=== PATIENT | female | born 1965 | race Two or more races ===

== ENCOUNTER → 2020-05-16 14:31 | Outpatient (BNVA) | payer MEDICAID, SELFPAY | PROVIDERS: Referring Provider Family Medicine; Visit Provider Internal Medicine Gastroenterology | DX: K59.03 Drug induced constipation (principal); K52.9 Noninfective gastroenteritis and colitis, unspecified; E66.9 Obesity, unspecified; E11.9 Type 2 diabetes mellitus without complications; E03.9 Hypothyroidism, unspecified; E78.00 Pure hypercholesterolemia, unspecified; J45.909 Unspecified asthma, uncomplicated; M17.0 Bilateral primary osteoarthritis of knee; Z87.891 Personal history of nicotine dependence; Z90.49 Acquired absence of other specified parts of digestive tract; Z88.8 Allergy status to other drugs, medicaments and biological substances; Z91.02 Food additives allergy status | CPT/HCPCS: 99212 ==

== ENCOUNTER 2020-06-23 16:01 | Emergency (ER) | payer MEDICAID, SELFPAY ==
[2020-06-23 16:31] VITALS: BP 135/64; PULSE 71; RESP 19; TEMP 36.4; O2SAT 98; BMI 45.1
--- NOTE | 2020-06-23 16:41 | XR_ITS ---
EXAMINATION: XR LUMBOSACRAL SPINE CLINICAL INFORMATION: Pain slip and fall COMPARISON: Lumbar x-rays December 2018 TECHNIQUE: Three views of the lumbosacral spine. FINDINGS: Multilevel degenerative disc changes from L3-L4 through L5-S1 overall mild and unchanged. There is no fracture. Facet joints appear normal. The partially visualized pelvis including sacroiliac joints are normal. XR/XR lumbar spine 2-3V IMPRESSION: Mild degenerative changes stable compared to December 2018
--- NOTE | 2020-06-23 16:41 | ED.BACK ---
HPI - Back Pain/Injury General Chief Complaint: Back Pain/Injury Stated Complaint: back pain Time Seen by Provider: 06/23/20 16:16 Source: patient Mode of arrival: ambulatory Limitations: no limitations History of Present Illness HPI Narrative: 54 y/o female presenting with low back pain after she slipped and fell backwards against her toilet 2 days ago. She did not hit her head, lose consciousness or sustain any other injuries. She is not on blood thinners. She states she has worsening pain with movement and is having a hard time sleeping due to the discomfort. She takes oxycodone chronically once per day and it did not help her pain today. She denies numbness, tingling, weakness, urinary incontinence. She states walking also makes the pain worse but she is steady on her feet. Related Data Home Medications Medication Instructions Recorded Confirmed bupropion HCl 300 mg 24 hr tablet, 300 mg PO QAM 05/16/20 05/16/20 extended release clonazepam 1 mg tablet 0.5 mg PO BID tab 05/16/20 05/16/20 furosemide 20 mg tablet 20 mg PO DAILY 05/16/20 05/16/20 levothyroxine 150 mcg tablet 150 mcg PO DAILY 05/16/20 05/16/20 metformin 500 mg tablet 500 mg PO DAILY 05/16/20 05/16/20 methylcellulose (with sugar) oral 1 tbsp PO BID 05/16/20 05/16/20 powder montelukast 10 mg tablet 10 mg PO QPM 05/16/20 05/16/20 Previous Rx's Medication Instructions Recorded cyclobenzaprine 10 mg PO TID PRN #12 tab 06/23/20 lidocaine [Lidoderm] 1 patch TOPICAL DAILY #15 ea 06/23/20 Allergies Allergy/AdvReac Type Severity Reaction Status Date / Time cortisone [CORTISONE] Allergy Intermediate ELEVATES Verified 06/23/20 17:09 BLOOD SUGAR ibuprofen [IBUPROFEN] Allergy Intermediate GI UPSET, Verified 06/23/20 17:09 stomach upset mayonnaise [MAYONNAISE] Allergy Mild RASH Verified 06/23/20 17:09 naproxen [NAPROXEN] AdvReac Intermediate STOMACH Verified 06/23/20 17:09 UPSET acetaminophen [Vicodin] AdvReac Unknown palpitation Verified 06/23/20 17:09 s hydrocodone [Vicodin] AdvReac Unknown palpitation Verified 06/23/20 17:09 s From VICODIN Allergy Intermediate PALPITATION Uncoded 04/11/20 16:41 S mayonaise Allergy Unknown Unknown Uncoded 06/23/20 17:09 mayonnaise Allergy Unknown itchiness Uncoded 01/18/20 00:00 and swelling Vicodin Allergy Unknown palpitation Uncoded 01/18/20 00:00 s,hypertens ion Cortisone AdvReac Unknown hyperglycem Uncoded 12/27/17 00:00 ia Review of Systems Review of Systems: Constitutional: No Fever, No Chills ENT/Mouth: No sore throat, No Rhinorrhea, No Swallowing Difficulty Cardiovascular: No Chest Pain, No SOB Respiratory: No Cough, No Sputum Gastrointestinal: No Nausea, No Vomiting, No Diarrhea, No abdominal Pain Musculoskeletal: + joint pain, + Myalgias Skin: No Skin Lesions, No rash Neuro: No Weakness, No Numbness, No Dizziness, + Headache Psych: No Anxiety/Panic, No Depression Heme/Lymph: No Bruising, No Lymphadenopathy PMFSH Past Medical History Attestation statement: The following information was validated with the patient. Medical History Asthma Bilateral carpal tunnel syndrome Chronic diarrhea Depression Drug induced constipation Fibromyalgia High cholesterol Hypothyroidism Osteoarthritis of knees, bilateral Type 2 diabetes mellitus Surgical History (Updated 05/16/20 @ 14:54 by Bruce Moralez MD) H/O arthroscopy of left knee (~2004) H/O: hysterectomy (~10/2012) History of cholecystectomy (~2011) History of removal of laparoscopic gastric banding device (~10/2012) Hx of laparoscopic adjustable gastric banding (~2009) S/p bilateral carpal tunnel release (~2003) Family History Family History (Updated 05/16/20 @ 14:33 by LENNOX Dickson) Mother No problems noted. Father Cancer Sister Breast cancer Social History Social History (Updated 05/16/20 @ 14:34 by LENNOX Dickson) Housing: Apartment Alcohol intake: never Smoking Status: Former smoker Advance Directives: No Advance Directives Information Provided: No service: No Current occupational status: disabled Physical Exam Vital Signs: Vital Signs: Last Vital Signs Temp 97.5 F 06/23/20 16:31 Pulse 71 06/23/20 16:31 Resp 19 06/23/20 16:31 BP 135/64 06/23/20 16:31 Pulse Ox 98 06/23/20 16:31 Body Mass Index 45.1 Appearance: Alert. Oriented X3. No acute distress. HEENT: normal inspection CVS: Normal heart rate and rhythm. Pulses normal. Respiratory: No respiratory distress. Lung CTAB Skin: Skin warm and dry. Normal skin color. Normal skin turgor. No rashes. Back: normal inspection, no ecchymosis. soft tissue tenderness of upper lumbar area R>L with muscle spasm on the right. No spinal tenderness. Extremities: Atraumatic, no lower extremity edema Neuro: Oriented X 3. No motor deficit. No sensory deficit. Course Course Course Narrative: 54 y/o female with traumatic LBP after a cornelius against her toilet seat 2 days ago. XR shows Mild degenerative changes stable compared to December 2018. She is non-focal on exam with mostly soft tissue tenderness. Will treat for contusion and spasm. She is stable for discharge. She was encouraged to f/u with her PCP this week. Discharge Plan Discharge Clinical Impression: Contusion Qualifiers: Encounter type: initial encounter Contusion area: lower back Qualified Code(s): S30.0XXA - Contusion of lower back and pelvis, initial encounter Patient Disposition: Home, Self-Care Instructions: Acute Low Back Pain (ED), Contusion in Adults (ED), Lower Back Exercises (ED) Additional Instructions: Use ice and/or heat to the area several times per day. Limit bending, lifting >10 lbs and twisting motions. Take prescribed medications as needed for pain/discomfort. Follow up with your doctor this week. If you develop worsening symptoms or develop numbness, weakness, loss of function or incontinence come back to the ER for further evaluation. Prescriptions: New cyclobenzaprine 10 mg tablet 10 mg PO TID PRN (Reason: muscle spasm) Qty: 12 RF: 0 lidocaine [Lidoderm] 5 % adhesive patch,medicated 1 patch topical DAILY Qty: 15 RF: 0 No Action furosemide [Lasix] 20 mg tablet 20 mg PO DAILY RF: 0 bupropion HCl [Wellbutrin XL] 300 mg tablet extended release 24 hr 300 mg PO QAM RF: 0 clonazepam [Klonopin] 1 mg tablet 0.5 mg PO BID RF: 0 montelukast [Singulair] 10 mg tablet 10 mg PO QPM RF: 0 Citrucel (sucrose) Powder 1 tbsp PO BID RF: 0 levothyroxine 150 mcg tablet 150 mcg PO DAILY RF: 0 metformin 500 mg tablet 500 mg PO DAILY RF: 0
[2020-06-23] MEDS: oxyCODONE HCl Immed Release 5 MG TABLET PO (17:15)
[2020-06-23] MEDS: Ketorolac Tromethamine 30 MG/ML VIAL IM (17:17)
== END 2020-06-23 17:56 | disposition home or self-care (01) ==
PROVIDERS: Emergency Provider Internal Medicine; PCP Family Medicine
DX: S30.0XXA Contusion of lower back and pelvis, initial encounter (principal); W01.10XA Fall on same level from slipping, tripping and stumbling with subsequent striking against unspecified object, initial encounter; Y93.9 Activity, unspecified; Y92.002 Bathroom of unspecified non-institutional (private) residence as the place of occurrence of the external cause; Y99.9 Unspecified external cause status; Z87.891 Personal history of nicotine dependence; Z79.899 Other long term (current) drug therapy
CPT/HCPCS: 72100; 96372; 99283; 99284; J1885

== ENCOUNTER 2021-03-14 08:15 | Outpatient (REF) | payer MEDICAID, SELFPAY ==
--- NOTE | ~2021-03-14 | XR_ITS ---
EXAMINATION: XR KNEE, BILATERAL AP STANDING XR KNEE, RIGHT, 2 VIEWS XR KNEE, LEFT, 2 VIEWS CLINICAL INFORMATION: Pain. COMPARISON: Most recent bilateral knee radiographs dated 08/10/2019 TECHNIQUE: Standing AP view of both knees and lateral and sunrise views of the right and left knee. FINDINGS: Right knee: Redemonstration of a medial compartment arthroplasty. No acute hardware or osseous fracture. No perihardware lucency to suggest loosening or infection. Mild patellofemoral and lateral compartment joint space narrowing with small marginal osteophytes. Patellofemoral subchondral cystic change. No significant joint effusion. Left knee: Moderate medial compartment joint space narrowing with subchondral sclerosis. Tricompartmental marginal osteophytes. Trace joint effusion. No osseous erosion. No fracture or dislocation. XR/XR knee LT 2V IMPRESSION: Right knee: Medial compartment arthroplasty without evidence of hardware complication. Patellofemoral and lateral compartment osteoarthritis, slightly progressed. Left knee: TricompartmentAL osteoarthritis, not significantly changed. Trace joint effusion.
--- NOTE | ~2021-03-14 | XR_ITS ---
EXAMINATION: XR KNEE, BILATERAL AP STANDING XR KNEE, RIGHT, 2 VIEWS XR KNEE, LEFT, 2 VIEWS CLINICAL INFORMATION: Pain. COMPARISON: Most recent bilateral knee radiographs dated 08/10/2019 TECHNIQUE: Standing AP view of both knees and lateral and sunrise views of the right and left knee. FINDINGS: Right knee: Redemonstration of a medial compartment arthroplasty. No acute hardware or osseous fracture. No perihardware lucency to suggest loosening or infection. Mild patellofemoral and lateral compartment joint space narrowing with small marginal osteophytes. Patellofemoral subchondral cystic change. No significant joint effusion. Left knee: Moderate medial compartment joint space narrowing with subchondral sclerosis. Tricompartmental marginal osteophytes. Trace joint effusion. No osseous erosion. No fracture or dislocation. XR/XR knee RT 2V IMPRESSION: Right knee: Medial compartment arthroplasty without evidence of hardware complication. Patellofemoral and lateral compartment osteoarthritis, slightly progressed. Left knee: TricompartmentAL osteoarthritis, not significantly changed. Trace joint effusion.
--- NOTE | ~2021-03-14 | XR_ITS ---
EXAMINATION: XR KNEE, BILATERAL AP STANDING XR KNEE, RIGHT, 2 VIEWS XR KNEE, LEFT, 2 VIEWS CLINICAL INFORMATION: Pain. COMPARISON: Most recent bilateral knee radiographs dated 08/10/2019 TECHNIQUE: Standing AP view of both knees and lateral and sunrise views of the right and left knee. FINDINGS: Right knee: Redemonstration of a medial compartment arthroplasty. No acute hardware or osseous fracture. No perihardware lucency to suggest loosening or infection. Mild patellofemoral and lateral compartment joint space narrowing with small marginal osteophytes. Patellofemoral subchondral cystic change. No significant joint effusion. Left knee: Moderate medial compartment joint space narrowing with subchondral sclerosis. Tricompartmental marginal osteophytes. Trace joint effusion. No osseous erosion. No fracture or dislocation. XR/XR knee standing BI IMPRESSION: Right knee: Medial compartment arthroplasty without evidence of hardware complication. Patellofemoral and lateral compartment osteoarthritis, slightly progressed. Left knee: TricompartmentAL osteoarthritis, not significantly changed. Trace joint effusion.
== END 2021-03-14 08:16 | disposition home or self-care (01) ==
LOC: HO.HOSX 08:15
PROVIDERS: Visit Provider Physician Assistant
DX: M17.12 Unilateral primary osteoarthritis, left knee (principal); T84.84XA Pain due to internal orthopedic prosthetic devices, implants and grafts, initial encounter; Z96.651 Presence of right artificial knee joint
CPT/HCPCS: 73560; 73565; 99212

== ENCOUNTER → 2021-05-16 10:58 | Outpatient (BNVA) | payer MEDICAID, SELFPAY | PROVIDERS: PCP Nurse Practitioner Family; Visit Provider Physician Assistant | DX: M17.0 Bilateral primary osteoarthritis of knee (principal); M25.562 Pain in left knee; M25.561 Pain in right knee; M79.7 Fibromyalgia; E11.9 Type 2 diabetes mellitus without complications; E78.00 Pure hypercholesterolemia, unspecified; E03.9 Hypothyroidism, unspecified; Z98.84 Bariatric surgery status; Z88.8 Allergy status to other drugs, medicaments and biological substances; Z91.012 Allergy to eggs; Z91.018 Allergy to other foods | CPT/HCPCS: 99212 ==

== ENCOUNTER 2021-09-08 08:31 | Outpatient (REF) | payer MEDICAID, SELFPAY | END 2021-09-08 08:32 | disposition home or self-care (01) | LOC: HO.HOSX 08:31 | PROVIDERS: Visit Provider Orthopaedic Surgery | DX: Z13.89 Encounter for screening for other disorder (principal) ==

== ENCOUNTER → 2021-10-01 12:25 | Outpatient (BNVA) | payer MEDICAID, SELFPAY | PROVIDERS: PCP Nurse Practitioner Family; Visit Provider Orthopaedic Surgery ==

== ENCOUNTER → 2021-11-07 12:59 | Outpatient (BNVA) | payer MEDICAID, SELFPAY | PROVIDERS: PCP Nurse Practitioner Family; Visit Provider Physician Assistant | DX: M17.12 Unilateral primary osteoarthritis, left knee (principal) | CPT/HCPCS: 99212 ==

== ENCOUNTER 2021-11-17 16:26 | Emergency (ER) | payer MEDICAID, SELFPAY ==
--- NOTE | ~2021-11-17 | XR_ITS ---
EXAMINATION: PORTABLE CHEST 1 VIEW CLINICAL INFORMATION: asthma . COMPARISON: 05/09/2019. TECHNIQUE: Portable frontal view of the chest was obtained. FINDINGS: The lungs are well expanded. No focal infiltrate, effusion, edema, or pneumothorax. Cardiac and mediastinal silhouettes are within normal limits for technique. No acute bony abnormality seen. XR/XR chest 1V IMPRESSION: No evidence of acute disease.
[2021-11-17 16:38] VITALS: BP 94/73; PULSE 66; RESP 18; TEMP 36.8; O2SAT 99; BMI 44.1
[2021-11-17 20:35] VITALS: BP 120/72; PULSE 65; RESP 19; O2SAT 99
--- NOTE | 2021-11-17 21:45 | ED.ASTHMA ---
HPI - Asthma General Chief Complaint: Asthma Stated Complaint: Asthma Back Pain Time Seen by Provider: 11/17/21 21:45 Source: patient Mode of arrival: ambulatory Limitations: no limitations History of Present Illness HPI Narrative: coughing causing pain in the chest and the lungs with wheezing. This all started yesterday afternoon. Patient has been taking her pump and nebs, no prednisone. She feel they are not working. No fever but has chills. With headache becasuse of coughing. Patient is vaccinated against COVID and flu. MD complaint: asthma attack , shortness of breath, wheezing and other (chest and back pain) Onset (ago): day(s) Severity: moderate Associated symptoms: dry cough and chest pain Related Data Current Asthma Therapy: inhaled bronchodilator and inhaled steroid Home Medications Medication Instructions Recorded Confirmed bupropion HCl 300 mg 24 hr tablet, 300 mg PO QAM 05/16/20 05/16/20 extended release (Wellbutrin XL) clonazepam 1 mg tablet (Klonopin) 0.5 mg PO BID tab 05/16/20 05/16/20 furosemide 20 mg tablet (Lasix) 20 mg PO DAILY 05/16/20 05/16/20 levothyroxine 150 mcg tablet 150 mcg PO DAILY 05/16/20 05/16/20 metformin 500 mg tablet 500 mg PO DAILY 05/16/20 05/16/20 methylcellulose (with sugar) oral 1 tbsp PO BID 05/16/20 05/16/20 powder (Citrucel (sucrose)) montelukast 10 mg tablet 10 mg PO QPM 05/16/20 05/16/20 (Singulair) Previous Rx's Medication Instructions Recorded cyclobenzaprine 10 mg tablet 10 mg PO TID PRN #12 tab 06/23/20 lidocaine 5 % topical patch 1 patch TOPICAL DAILY #15 ea 06/23/20 (Lidoderm) acetaminophen 325 mg tablet 650 mg PO Q4-6H PRN #30 tab 05/19/21 qomaxeayeltwl-RU-knopupyvksw 5 10 ml PO Q4H PRN #118 ml 11/17/21 mg-10 mg-100 mg/5 mL oral liquid prednisone 20 mg tablet 60 mg PO DAILY #12 tab 11/17/21 Allergies Allergy/AdvReac Type Severity Reaction Status Date / Time cortisone [CORTISONE] Allergy Intermediate ELEVATES Verified 11/17/21 16:38 BLOOD SUGAR ibuprofen [IBUPROFEN] Allergy Intermediate GI UPSET, Verified 11/17/21 16:38 stomach upset mayonnaise [MAYONNAISE] Allergy Mild RASH Verified 11/17/21 16:38 naproxen [NAPROXEN] AdvReac Intermediate STOMACH Verified 11/17/21 16:38 UPSET acetaminophen [Vicodin] AdvReac Unknown palpitation Verified 11/17/21 16:38 s hydrocodone [Vicodin] AdvReac Unknown palpitation Verified 11/17/21 16:38 s From VICODIN Allergy Intermediate PALPITATION Uncoded 11/17/21 16:38 S mayonaise Allergy Unknown Unknown Uncoded 11/17/21 16:38 mayonnaise Allergy Unknown itchiness Uncoded 11/17/21 16:38 and swelling Vicodin Allergy Unknown palpitation Uncoded 11/17/21 16:38 s,hypertens ion Cortisone AdvReac Unknown hyperglycem Uncoded 11/17/21 16:38 ia Review of Systems Constitutional: Constitutional: Reports no additional constitutional complaints Eyes: Eyes: Reports no additional eye complaints ENT: Denies dizziness Cardiovascular: Cardiovascular: Reports no additional cardiovascular complaints Respiratory: Respiratory: Reports as per HPI Gastrointestinal: Gastrointestinal: Reports no additional gastrointestinal complaints Genitourinary: Genitourinary: Reports no additional female genitourinary complaints Musculoskeletal: Musculoskeletal: Reports no additional musculoskeletal complaints Integumentary/Breasts: Skin/Breast: Denies rash Neurologic: Reports system reviewed and no additional complaints, except as documented, Denies dizziness and Denies Sensory deficit (Neuro) Psychiatric: Psychiatric: Denies anxiety PMFSH Past Medical History Medical History Asthma Bilateral carpal tunnel syndrome Chronic diarrhea Depression Drug induced constipation Fibromyalgia High cholesterol Hypothyroidism Osteoarthritis of knees, bilateral Type 2 diabetes mellitus Surgical History H/O arthroscopy of left knee (~2004) H/O: hysterectomy (~10/2012) History of cholecystectomy (~2011) History of removal of laparoscopic gastric banding device (~10/2012) Hx of laparoscopic adjustable gastric banding (~2009) S/p bilateral carpal tunnel release (~2003) Family History Family History Mother No problems noted. Father Cancer Sister Breast cancer Social History Social History Household Members Other:: sister Housing: Apartment Alcohol intake: never Advance Directives: No Advance Directives Information Provided: No service: No Current occupational status: disabled Physical Exam Vital Signs: Vital Signs: Last Vital Signs Temp 98.3 F 11/17/21 16:38 Pulse 65 11/17/21 20:35 Resp 19 11/17/21 20:35 BP 120/72 11/17/21 20:35 Pulse Ox 99 11/17/21 20:35 BMI result Body Mass Index 44.1 Const: Other: coughing Nutritional Appearance: obese Orientation/consciousness: oriented to person and patient oriented x3 Limitations: no limitations HEENT: Head: Yes normal to inspection Ears: external ears normal General nose exam: Normal external nose present Mouth: Normal oral and palatal mucosa present and oropharynx normal Throat: Yes posterior oropharynx normal Eyes: General: appearance normal, both eyes and all related structures Neck: Other: supple Neck: Yes normal visual inspection Chest: Chest palpation & inspection: normal inspection of the chest Resp: Other: slight wheeze Cardio: Jugular venous distension: no JVD Rate: regular rate Rhythm: regular rhythm Heart sounds: S1 normal heart sound present and S2 normal heart sound present GI: Inspection: Yes normal to inspection Palpation (GI): Soft to palpation, nontender and No hepatosplenomegaly present Auscultation: normal bowel sounds Back/Spine/Pelvis: Other: tenderness around right scapula Skin: General skin exam: no rashes or lesions noted Neuro: General: oriented to person and patient oriented x3 Cranial nerves: Yes CN's II-XII intact bilaterally Motor exam (neuro): 5/5 motor strength present throughout Sensory Exam: No Sensory deficit (Neuro) Extrem: General: Yes normal to inspection Psych: Appearance: grossly normal Course Reevaluation(s) Reevaluation #1: Patient improved with MDI, and robitussin. Will dc home on prednisone and robitussin, Impression is URI with asthma Time: 23:37 MDM - Asthma Lab Data Labs: Lab Results 11/17/21 Range/Units 22:18 Influenza Type A (PCR) NEGATIVE (Negative) Influenza Type B (PCR) NEGATIVE (Negative) RSV RNA Qual (PCR) NEGATIVE (Negative) SARS-CoV-2 RNA (RT-PCR) NEGATIVE (Negative) Discharge Plan Discharge Clinical Impression: Acute upper respiratory infection, Asthma Patient Disposition: Home, Self-Care Instructions: Asthma (ED), Upper Respiratory Infection (ED) Prescriptions: New prednisone 20 mg tablet 60 mg PO DAILY Qty: 12 0RF rweuzoibxhylr-RU-uvymabrqpqa 5-10-100 mg/5 mL liquid 10 ml PO Q4H PRN (Reason: cough) Qty: 118 0RF No Action acetaminophen 325 mg tablet 650 mg PO Q4-6H PRN (Reason: for fever) Qty: 30 3RF cyclobenzaprine 10 mg tablet 10 mg PO TID PRN (Reason: muscle spasm) Qty: 12 0RF lidocaine [Lidoderm] 5 % adhesive patch,medicated 1 patch topical DAILY Qty: 15 0RF Rx Instructions: leave on most painful area for up to 12 hrs furosemide [Lasix] 20 mg tablet 20 mg PO DAILY 0RF bupropion HCl [Wellbutrin XL] 300 mg tablet extended release 24 hr 300 mg PO QAM 0RF clonazepam [Klonopin] 1 mg tablet 0.5 mg PO BID 0RF montelukast [Singulair] 10 mg tablet 10 mg PO QPM 0RF Citrucel (sucrose) Powder 1 tbsp PO BID 0RF levothyroxine 150 mcg tablet 150 mcg PO DAILY 0RF metformin 500 mg tablet 500 mg PO DAILY 0RF
--- NOTE | 2021-11-17 21:56 | ECG_ITS ---
Test Reason : DIFF BREATHING Blood Pressure : / mmHG Vent. Rate : 065 BPM Atrial Rate : 065 BPM P-R Int : 136 ms QRS Dur : 090 ms QT Int : 424 ms P-R-T Axes : 023 025 028 degrees QTc Int : 440 ms Normal sinus rhythm Normal ECG No significant changes when compared with the previous EKG of 09 may 2019 Referred By: Houston Braun Electronically Signed By:SOPHIE CHOU
[2021-11-17] MEDS: guaiFENesin 200 MG/10 ML 10 ML LIQUID PO (22:17)
[2021-11-17] MEDS: predniSONE 20 MG TABLET 60 MG PO (22:17)
[2021-11-17 23:02] LABS: Influenza A PCR NEGATIVE (Negative); Influenza B PCR NEGATIVE (Negative); Resp Syncy Virus RNA Qual PCR NEGATIVE (Negative); SARS COV2 PCR INHOUSE NEGATIVE (Negative)
[2021-11-18] VITALS: PULSE 70; RESP 16; O2SAT 97
[2021-11-18] MEDS: Albuterol Sulfate 90 MCG 8 GM INHALER 4 PUFF INHALE (00:06)
== END 2021-11-18 00:13 | disposition home or self-care (01) ==
PROVIDERS: Emergency Provider Emergency Medicine; PCP Nurse Practitioner
DX: J06.9 Acute upper respiratory infection, unspecified (principal); J45.909 Unspecified asthma, uncomplicated; M54.50 Low back pain, unspecified; R05.9 Cough, unspecified; R07.89 Other chest pain; Z98.84 Bariatric surgery status; Z20.822 Contact with and (suspected) exposure to COVID-19; Z79.899 Other long term (current) drug therapy
CPT/HCPCS: 0241U; 71045; 93005; 99284

== ENCOUNTER → 2022-01-02 11:12 | Outpatient (BNVA) | payer MEDICAID, SELFPAY | PROVIDERS: PCP Nurse Practitioner; Visit Provider Physician Assistant | DX: M17.12 Unilateral primary osteoarthritis, left knee (principal); S80.02XA Contusion of left knee, initial encounter; M25.561 Pain in right knee | CPT/HCPCS: 99212 ==

== ENCOUNTER 2022-01-22 11:43 | Outpatient (REF) | payer MEDICAID, SELFPAY ==
--- NOTE | ~2022-01-22 | XR_ITS ---
EXAMINATION: XR WRIST, LEFT CLINICAL INFORMATION: Pain COMPARISON: None TECHNIQUE: PA, lateral, and oblique views of the left wrist. FINDINGS: The bones and soft tissues are normal. No fracture. Alignment is anatomic with normal joint spaces. No erosions or abnormal soft tissue calcifications. XR/XR wrist LT min 3V IMPRESSION: Unremarkable left wrist.
== END 2022-01-22 11:44 | disposition home or self-care (01) ==
LOC: HO.XRAY 11:43
PROVIDERS: Visit Provider Nurse Practitioner
DX: M25.532 Pain in left wrist (principal)
CPT/HCPCS: 73110

== ENCOUNTER 2022-10-29 11:54 | Outpatient (REF) | payer OTHER, SELFPAY ==
--- NOTE | ~2022-10-29 | XR_ITS ---
EXAMINATION: XR KNEES, STANDING AP BILATERAL XR KNEE, RIGHT XR KNEE, LEFT CLINICAL INFORMATION: Knee pain COMPARISON: Bilateral knee radiographs 03/14/2021 including standing AP knees. TECHNIQUE: Bilateral standing AP view of the knees is performed. Each knee is also imaged in lateral and axial patella views. FINDINGS: Right: Status post prior medial hemiarthroplasty. Hardware intact. No fracture, dislocation, interval osteolysis, or destructive process. No periostitis. There are old small marginal osteophytes lateral femoral condyle and lateral tibial plateau and lateral patella. There is trace thickening suprapatellar bursa. Hoffa's fat pad appears normal. No lateralization patella. Left: Mild tricompartment osteoarthritis. There are marginal osteophytes from the femoral condyles and lateral tibial plateau and lateral patella. Small subchondral cysts medial femoral condyle and subchondral sclerosis. There is a small to moderate suprapatellar effusion. Hoffa's fat pad appears normal. No lateralization patella. XR/XR knee standing BI IMPRESSION: Right: -Status post medial hemiarthroplasty. Hardware intact. No osteolysis. -Trace suprapatellar effusion. Left: -Tricompartment osteoarthritis similar to prior exam 2020. -Small to moderate suprapatellar effusion.
--- NOTE | ~2022-10-29 | XR_ITS ---
EXAMINATION: XR KNEES, STANDING AP BILATERAL XR KNEE, RIGHT XR KNEE, LEFT CLINICAL INFORMATION: Knee pain COMPARISON: Bilateral knee radiographs 03/14/2021 including standing AP knees. TECHNIQUE: Bilateral standing AP view of the knees is performed. Each knee is also imaged in lateral and axial patella views. FINDINGS: Right: Status post prior medial hemiarthroplasty. Hardware intact. No fracture, dislocation, interval osteolysis, or destructive process. No periostitis. There are old small marginal osteophytes lateral femoral condyle and lateral tibial plateau and lateral patella. There is trace thickening suprapatellar bursa. Hoffa's fat pad appears normal. No lateralization patella. Left: Mild tricompartment osteoarthritis. There are marginal osteophytes from the femoral condyles and lateral tibial plateau and lateral patella. Small subchondral cysts medial femoral condyle and subchondral sclerosis. There is a small to moderate suprapatellar effusion. Hoffa's fat pad appears normal. No lateralization patella. XR/XR knee RT 2V IMPRESSION: Right: -Status post medial hemiarthroplasty. Hardware intact. No osteolysis. -Trace suprapatellar effusion. Left: -Tricompartment osteoarthritis similar to prior exam 2020. -Small to moderate suprapatellar effusion.
--- NOTE | ~2022-10-29 | XR_ITS ---
EXAMINATION: XR KNEES, STANDING AP BILATERAL XR KNEE, RIGHT XR KNEE, LEFT CLINICAL INFORMATION: Knee pain COMPARISON: Bilateral knee radiographs 03/14/2021 including standing AP knees. TECHNIQUE: Bilateral standing AP view of the knees is performed. Each knee is also imaged in lateral and axial patella views. FINDINGS: Right: Status post prior medial hemiarthroplasty. Hardware intact. No fracture, dislocation, interval osteolysis, or destructive process. No periostitis. There are old small marginal osteophytes lateral femoral condyle and lateral tibial plateau and lateral patella. There is trace thickening suprapatellar bursa. Hoffa's fat pad appears normal. No lateralization patella. Left: Mild tricompartment osteoarthritis. There are marginal osteophytes from the femoral condyles and lateral tibial plateau and lateral patella. Small subchondral cysts medial femoral condyle and subchondral sclerosis. There is a small to moderate suprapatellar effusion. Hoffa's fat pad appears normal. No lateralization patella. XR/XR knee LT 2V IMPRESSION: Right: -Status post medial hemiarthroplasty. Hardware intact. No osteolysis. -Trace suprapatellar effusion. Left: -Tricompartment osteoarthritis similar to prior exam 2020. -Small to moderate suprapatellar effusion.
== END 2022-10-29 11:55 | disposition home or self-care (01) ==
LOC: HO.HOSX 11:54
PROVIDERS: PCP Registered Nurse; Visit Provider Orthopaedic Surgery
DX: M17.12 Unilateral primary osteoarthritis, left knee (principal); M25.561 Pain in right knee; E11.9 Type 2 diabetes mellitus without complications
CPT/HCPCS: 73560; 73565; 99212

== ENCOUNTER 2022-10-29 12:56 | Outpatient (REF) | payer MEDICAID, SELFPAY ==
[2022-10-29 14:34] LABS: Estimated Average Glucose 217 mg/dL; Hemoglobin A1c % 9.2 %
== END 2022-10-29 12:57 | disposition home or self-care (01) ==
LOC: HO.LAB 12:56
PROVIDERS: PCP Registered Nurse; Visit Provider Orthopaedic Surgery
DX: Z01.812 Encounter for preprocedural laboratory examination (principal)
CPT/HCPCS: 36415; 83036

== ENCOUNTER → 2022-11-05 10:25 | Outpatient (BNVA) | payer OTHER, SELFPAY | PROVIDERS: PCP Nurse Practitioner; Visit Provider Internal Medicine Endocrinology, Diabetes & Metabolism | DX: E11.9 Type 2 diabetes mellitus without complications (principal); E03.9 Hypothyroidism, unspecified; Z98.84 Bariatric surgery status; Z79.4 Long term (current) use of insulin; Z79.52 Long term (current) use of systemic steroids; Z79.899 Other long term (current) drug therapy | CPT/HCPCS: 82947; 99212 ==

== ENCOUNTER 2023-01-20 11:01 | Outpatient (REF) | payer OTHER, SELFPAY ==
[2023-01-20 11:57] LABS: Estimated Average Glucose 186 mg/dL; Hemoglobin A1c % 8.1 %
== END 2023-01-20 11:02 | disposition home or self-care (01) ==
LOC: HO.LAB 11:01
PROVIDERS: Absent Provider Orthopaedic Surgery; PCP Physician Assistant; Visit Provider Internal Medicine Endocrinology, Diabetes & Metabolism
DX: Z01.812 Encounter for preprocedural laboratory examination (principal)
CPT/HCPCS: 36415; 83036

== ENCOUNTER 2023-02-09 10:38 | Outpatient (REF) | payer OTHER, SELFPAY ==
--- NOTE | ~2023-02-09 | MM_ITS ---
EXAMINATION: MM SCREENING DIGITAL BREAST TOMOSYNTHESIS, BILATERAL CLINICAL INFORMATION: Screening. Asymptomatic. The lifetime risk of breast cancer based on the Tyrer-Cuzick Model is 7.6%. COMPARISON: Mammography: This study is compared with prior exams dating back to 2016. TECHNIQUE: Digital breast tomosynthesis is performed in both the craniocaudal and mediolateral oblique views along with computer-aided detection (CAD). Synthesized 2D images are generated from the tomosynthesis. FINDINGS: There are scattered areas of fibroglandular density (ACR BI-RADS breast composition Category b). There are no significant masses, abnormal calcifications, or other abnormalities. There is a tissue marker present in the left breast from prior benign stereotactic biopsy. MM/MM tomosynthesis screening BI IMPRESSION: No mammographic evidence of malignancy. ASSESSMENT: BI-RADS BI-RADS 2 - Benign Findings RECOMMENDATION: Routine annual mammography screening. 1 year F/U This examination should not preclude the clinical evaluation of a suspicious palpable abnormality. This patient's information was entered into a reminder system with a target due date for their next mammogram.
== END 2023-02-09 10:39 | disposition home or self-care (01) ==
LOC: HO.MAMMO 10:38
PROVIDERS: Visit Provider Registered Nurse
DX: Z12.31 Encounter for screening mammogram for malignant neoplasm of breast (principal)
CPT/HCPCS: 77063; 77067

== ENCOUNTER → 2023-02-09 11:00 | Outpatient (BNV) | payer OTHER, SELFPAY | PROVIDERS: Visit Provider Radiology Diagnostic Radiology | DX: Z12.31 Encounter for screening mammogram for malignant neoplasm of breast (principal) | CPT/HCPCS: 77063; 77067 ==

== ENCOUNTER 2023-04-05 12:59 | Outpatient (REF) | payer MEDICAID, SELFPAY ==
[2023-04-05 15:25] LABS: Anion Gap 11 (12-20); Blood Urea Nitrogen 15 mg/dL (9-16); Calcium 9.7 mg/dL (8.4-10.2); Carbon Dioxide 26 mmol/L (22-29); Chloride 106 mmol/L (96-108); Cholesterol 142 mg/dL (<200); Estimated Glomerular Filt Rate > 60; Glucose Random 138 mg/dL (60-115); HDL Cholesterol 42 mg/dL (>40); LDL Cholesterol Calculated 74 mg/dL (<100); Potassium 4.1 mmol/L (3.3-5.1); Sodium 139 mmol/L (135-145); Triglycerides 134 mg/dL (<150)
[2023-04-05 15:34] LABS: Creatinine Urine 52.29 mg/dL; Microalbumin Urine < 5.0 mg/L
[2023-04-05 15:40] LABS: Free T4 (Free Thyroxine) 0.91 ng/dL (0.71-1.85); Thyroid Stimulating Hormone 0.33 uIU/mL (0.32-4.0)
== END 2023-04-05 13:00 | disposition home or self-care (01) ==
LOC: HO.LAB 12:59
PROVIDERS: Absent Provider Orthopaedic Surgery; PCP Registered Nurse; Visit Provider Internal Medicine Endocrinology, Diabetes & Metabolism
DX: E11.9 Type 2 diabetes mellitus without complications (principal)
CPT/HCPCS: 36415; 80048; 80061; 82043; 82570; 84439; 84443

== ENCOUNTER 2023-04-27 11:09 | Outpatient (REF) | payer MEDICAID, SELFPAY ==
[2023-04-27 13:52] LABS: Alanine Aminotransferase 11 U/L (0-31); Albumin Level 3.7 g/dL (3.5-5.0); Alkaline Phosphatase 76 U/L (39-117); Aspartate Amino Transferase 12 U/L (5-31); Bilirubin Direct 0.2 mg/dL (0.0-0.5); Bilirubin Total 0.5 mg/dL (0.0-1.0); Estimated Average Glucose 140 mg/dL; Hemoglobin A1c % 6.5 % (<6.0); Total Protein 6.5 g/dL (6.5-8.0)
== END 2023-04-27 11:10 | disposition home or self-care (01) ==
LOC: HO.HHCL 11:09
PROVIDERS: PCP Registered Nurse; Referring Provider Registered Nurse; Visit Provider Orthopaedic Surgery
DX: E11.9 Type 2 diabetes mellitus without complications (principal); Z79.4 Long term (current) use of insulin
CPT/HCPCS: 36415; 80076; 83036

== ENCOUNTER 2023-05-18 10:30 | Outpatient (REF) | payer MEDICAID, SELFPAY ==
[2023-05-18 11:23] LABS: MANUAL DIFF FLAG NO
[2023-05-18 11:33] LABS: Basophils Percent Auto 0.7 % (0-2); Eosinophils Absolute Auto 0.1 X10*3/uL (0.0-0.4); Eosinophils Percent Auto 1.9 % (0-4); Hematocrit 45.5 % (37.0-47.0); Hemoglobin 14.9 g/dl (12.0-16.0); Imm Gran Abs Auto 0.01 X10*3/uL (0.00-0.03); Imm Gran Pct Auto 0.2 % (0.0-0.4); Lymphocytes Absolute Auto 2.7 X10*3/uL (1.2-4.9); Lymphocytes Percent Auto 47.2 % (20-40); Mean Corpuscular HGB Conc 32.7 g/dl (31.0-35.0); Mean Corpuscular Hemoglobin 29.9 pg (27.0-33.0); Mean Corpuscular Volume 91.4 fL (80.0-98.0); Mean Platelet Volume 10.7 fL (9.4-12.3); Monocytes Absolute Auto 0.4 X10*3/uL (0.1-1.2); Monocytes Percent Auto 6.4 % (2-11); Neutrophils Absolute Auto 2.5 x10*3/uL (2.0-8.3); Neutrophils Percent Auto 43.6 % (45-73); Platelet Count 231 X10*3/uL (160-400); Red Blood Count 4.98 X10*6/uL (4.20-5.50); Red Cell Distribution Width 13.2 % (11.0-16.0); White Blood Count 5.7 X10*3/uL (4.8-10.8)
[2023-05-18 12:28] LABS: Anion Gap 15 (12-20); Blood Urea Nitrogen 15 mg/dL (9-16); Calcium 9.5 mg/dL (8.4-10.2); Carbon Dioxide 22 mmol/L (22-29); Chloride 108 mmol/L (96-108); Estimated Glomerular Filt Rate > 60; Glucose Random 114 mg/dL (60-115); Potassium 3.6 mmol/L (3.3-5.1); Sodium 141 mmol/L (135-145)
== END 2023-05-18 10:31 | disposition home or self-care (01) ==
LOC: HO.HHCL 10:30
PROVIDERS: Visit Provider Internal Medicine
DX: Z01.818 Encounter for other preprocedural examination (principal)
CPT/HCPCS: 36415; 80048; 85025

== ENCOUNTER 2023-06-03 10:46 | Outpatient (AMB) | payer MEDICAID, SELFPAY ==
[2023-06-03 11:13] VITALS: BMI 41.8
--- NOTE | 2023-06-03 11:13 | A.OFFVIS_ITS ---
Intake Vital Signs 06/03/23 11:13 Height 5 ft 1 in Weight 221 lb BMI 41.8 Intake Visit Reasons: Preop LT TKA 06/09/23 NE Intake Note: Argelia is a 57 year old female who presents today for a pre op appointment for her left TKA 06/09/23 NE. Allergies cortisone [CORTISONE] Allergy (Intermediate, Verified 06/03/23 11:14) ELEVATES BLOOD SUGAR ibuprofen [IBUPROFEN] Allergy (Intermediate, Verified 06/03/23 11:14) GI UPSET, stomach upset mayonnaise [MAYONNAISE] Allergy (Mild, Verified 06/03/23 11:14) RASH naproxen [NAPROXEN] Adverse Reaction (Intermediate, Verified 06/03/23 11:14) STOMACH UPSET Vicodin Allergy (Unknown, Uncoded 11/05/22 10:42) palpitations,hypertension Cortisone Adverse Reaction (Unknown, Uncoded 11/05/22 10:42) hyperglycemia HPI Preop LT TKA 06/09/23 NE HPI Details 57-year-old female, who is [place] speak ing, presents in the office today for her preoperative history and physical exam prior to a left total knee arthroplasty to be performed on 06/09/[address] Laureano. She confirms her diabetes is controlled. She confirms having a walker at home. Patient has an allergy history, as follows: -Cortisone; elevated blood sugar/hypergl ycemia -Ibuprofen; GI upset -Mayonnaise; rash -Naproxen; GI upset -Vicodin; palpitations/hypertension Patient is currently taking, as follows: -Acetaminophen 650 mg PO Q4-6H PRN -Albuterol sulfate 90 mcg/actuation 2 pu ffs inhalation Q4-6H PRN -Amlodipine 5 mg PO daily -Bupropion HCI 300 mg PO QAM -Canagliflozin 300 mg PO daily -Clonazepam 0.5 mg PO BID -Cyclobenzaprine 10 mg PO TID PRN -Dulaglutide 1.5 mg subcut Qweek -Furosemide 20 mg PO daily -Insulin glargine 30 units subcut bedtim e -Irbesartan 300 mg PO daily -Levothyroxine 150 mcg PO daily -Lidocaine 5% topical daily PRN -Metformin 500 mg PO daily -Montelukast 10 mg PO QPM -Pantoprazole 20 mg PO QAM -Xfwyszspzissd-EK-lirodcvphpu 5-10-100 m g PO Q4H PRN -Pravastatin 40 mg PO bedtime Patient has a medical history, as follows: -Anemia -GERD -Depression -Asthma -High cholesterol -Hypothyroidism -Type 2 diabetes mellitus -Fibromyalgia -Chronic diarrhea Patient has a surgical history, as follows: -History of total right knee replacement ; Dr. Laureano at [facility] [place] 05/28/2015 -History of bilateral cataract extractio n -History of esophagogastroduodenoscopy ( EGD) -History of colonoscopy -History of hand surgery; right hand ten don release 06/2022 -History of cholecystectomy; 2011 -History of bilateral carpal tunnel rele ase; 2003 -History of laparoscopic adjustable nery harini banding; 2009 -History of removal of laparoscopic nery harini banding device; 10/2012 -History of hysterectomy Patient has a social history, as follows: -Tobacco; cigarettes 6 per day -Alcohol; daily PFSH Medical History (Updated 05/28/23 @ 13:08 by Indy Cunningham RN) Back pain Arthritis Anemia GERD (gastroesophageal reflux disease) History of headache Osteoarthritis of knees, bilateral Depression Asthma High cholesterol Hypothyroidism Type 2 diabetes mellitus Bilateral carpal tunnel syndrome Fibromyalgia Chronic diarrhea Drug induced constipation Surgical History (Updated 05/28/23 @ 13:45 by Indy Cunningham RN) History of total right knee replacement (TKR) Hx of bilateral cataract extraction History of esophagogastroduodenoscopy (EGD) H/O colonoscopy Hx of hand surgery History of cholecystectomy (~2011) S/p bilateral carpal tunnel release (~2003) Hx of laparoscopic adjustable gastric banding (~2009) History of removal of laparoscopic gastric banding device (~10/2012) H/O: hysterectomy (~10/2012) Family History Mother No problems noted. Father Cancer Sister Breast cancer Social History Household Members Other:: sister Housing: Apartment Are you a primary child daycare worker to a significant other at home: No Do you presently have visiting nurse or other home services: Yes (PCT) Alcohol intake: never Patient Tobacco Use Status: Current everyday Tobacco user Tobacco use type: Cigarette Cigarettes Per Day: 6 Years Smoked: 47 service: No Current occupational status: disabled Review of Systems Const All systems reviewed & are unremarkable except as noted in HPI and below Physical Exam Vital Signs: BMI result Body Mass Index 41.8 Const General: cooperative, healthy appearing, comfortable, no acute distress, well developed, alert and awake Orientation/consciousness: patient oriented x3 HEENT Head: Yes normal to inspection, Yes normocephalic and Yes atraumatic Eyes General: appearance normal, both eyes and all related structures Neck Neck: Yes normal visual inspection and Yes no lymphadenopathy Resp Effort & Inspection: normal respiratory effort and able to speak in complete sentences Cardio Rate: regular rate Peripheral pulses: Peripheral pulses 2+ throughout GI Inspection: Yes normal to inspection Palpation (GI): Soft to palpation Skin General skin exam: no rashes or lesions noted Neuro General: patient oriented x3 Extrem Other: Left Knee: Skin is clean, dry, and intact TTP lateral compartment TTP lateral patellofemoral region 5-125 degrees ROM Walks with antalgia Psych Appearance: grossly normal Mental Status: mental status grossly normal Affect: normal affect Attitude: cooperative Assessment & Plan Assessment & Plan (1) Primary osteoarthritis of left knee: Code(s): M17.12 - Unilateral primary osteoarthritis, left knee (2) Type 2 diabetes mellitus: Code(s): E11.9 - Type 2 diabetes mellitus without complications (3) BMI 40.0-44.9, adult: Code(s): Z68.41 - Body mass index [BMI] 40.0-44.9, adult Plan Ms. Jose Oliver is a 57-year-old female, who is Luxembourgish speaking, presents in the office today for her preoperative history and physical exam prior to a left total knee arthroplasty to be performed on 06/09/[address] Laureano. She confirms her diabetes is controlled. She confirms having a walker at home. Patient has an allergy history, as follows: -Cortisone; elevated blood sugar/hyperglycemia -Ibuprofen; GI upset -Mayonnaise; rash -Naproxen; GI upset -Vicodin; palpitations/hypertension Patient is currently taking, as follows: -Acetaminophen 650 mg PO Q4-6H PRN -Albuterol sulfate 90 mcg/actuation 2 puffs inhalation Q4-6H PRN -Amlodipine 5 mg PO daily -Bupropion HCI 300 mg PO QAM -Canagliflozin 300 mg PO daily -Clonazepam 0.5 mg PO BID -Cyclobenzaprine 10 mg PO TID PRN -Dulaglutide 1.5 mg subcut Qweek -Furosemide 20 mg PO daily -Insulin glargine 30 units subcut bedtime -Irbesartan 300 mg PO daily -Levothyroxine 150 mcg PO daily -Lidocaine 5% topical daily PRN -Metformin 500 mg PO daily -Montelukast 10 mg PO QPM -Pantoprazole 20 mg PO QAM -Zoupjxicgsntg-TC-ocqqvjbhwdt 5-10-100 mg PO Q4H PRN -Pravastatin 40 mg PO bedtime Patient has a medical history, as follows: -Anemia -GERD -Depression -Asthma -High cholesterol -Hypothyroidism -Type 2 diabetes mellitus -Fibromyalgia -Chronic diarrhea Patient has a surgical history, as follows: -History of total right knee replacement; Dr. Laureano at [facility] [place] 05/28/2015 -History of bilateral cataract extraction -History of esophagogastroduodenoscopy (EGD) -History of colonoscopy -History of hand surgery; right hand tendon release 06/2022 -History of cholecystectomy; 2011 -History of bilateral carpal tunnel release; 2003 -History of laparoscopic adjustable gastric banding; 2009 -History of removal of laparoscopic gastric banding device; 10/2012 -History of hysterectomy Patient has a social history, as follows: -Tobacco; cigarettes 6 per day -Alcohol; daily I discussed in detail the procedure and what to expect pre and post operatively. We discussed the risks, benefits and alternatives to the surgery as well as the rehabilitation course. The risks; which include, but are not limited to infection, bleeding, nerve injury, ongoing pain, swelling, and stiffness, perioperative risk of injury to bones and soft tissues, and blood clots. I have answered all questions and with their understanding they have consented to move forward with a left total knee arthroplasty to be performed on 06/09/[address] Harsha Laureano. Follow up will be at the post operative appointment on 06/24/2023 at 2:15 pm, or sooner if needed. Of note: She would like all communications to be with her daughter after surg jacinto. Patient Instructions: Scribed for Yee Thompson PA-C by Kylie Laboy medical logistics specialist, on 06/03/2023 at 10:52 am, EST. Coding Level of Care Code Global (95153) Diagnoses Primary osteoarthritis of left knee M17.12 Type 2 diabetes mellitus E11.9 BMI 40.0-44.9, adult Z68.41
== END 2023-06-03 11:22 | disposition home or self-care (01) ==
PROVIDERS: PCP Registered Nurse; Visit Provider Physician Assistant
DX: M17.12 Unilateral primary osteoarthritis, left knee (principal); E11.9 Type 2 diabetes mellitus without complications; Z68.41 Body mass index [BMI] 40.0-44.9, adult
CPT/HCPCS: 99024

== ENCOUNTER → 2023-06-03 10:46 | Outpatient (BNVA) | payer MEDICAID, SELFPAY | PROVIDERS: PCP Registered Nurse; Visit Provider Physician Assistant ==

== ENCOUNTER 2023-06-09 06:30 | Day surgery (SDC) | payer MEDICAID, SELFPAY ==
--- NOTE | 2023-05-28 12:53 | ECG_ITS ---
Test Reason : preop Blood Pressure : / mmHG Vent. Rate : 059 BPM Atrial Rate : 059 BPM P-R Int : 160 ms QRS Dur : 084 ms QT Int : 440 ms P-R-T Axes : 071 030 039 degrees QTc Int : 435 ms Sinus bradycardia Otherwise normal ECG When compared with ECG of 17-NOV-2021 22:12, No significant change was found Referred By: Yee Thompson Electronically Signed By:CLAUDINE ROMERO MD
[2023-05-28 13:23] VITALS: BP 133/69; PULSE 61; RESP 18; O2SAT 99; BMI 41.2
--- NOTE | 2023-05-28 13:51 | P.CONAN_ITS ---
Documented by User: Karishma Jacome NP 06/08/23 10:23 HPI - Anesthesia Eval Consult details Narrative: 57yo F for Left Knee Replacement Total Medically optimized per PCP Recent dry cough. Improving. No CP/SOB with limited activity d/t knee pain. s/p R TKA 2014. ? spinal. Pt reports being awake, but no issues. GERD. Well controlled with daily protonix ASTHMA. Stable. Albuterol ~ 1 x weekly DM. FBS 80-100 HYPOTHYROID. TSH and Free T4 wnl 03/2023 Anesthesia Pre-Procedure Meds Is the patient on any of the following meds?: Dulaglutide (Trulicity) (Instructed last dose 05/27/23) If Yes to any meds - educate patient: Pt education - increased risk of aspiration and Pt education - possibility of cancelled proc at provider's discretion PMFSH Active Problems Active Problems: All Active Problems (Updated 05/28/23 @ 13:08 by Indy Cunningham RN) BMI 40.0-44.9, adult (Acute) Contusion of left knee (Acute) Primary osteoarthritis of left knee (Acute) S/P right unicompartmental knee replacement (Acute) Osteoarthritis of knees, bilateral (Acute) Colon cancer screening (Acute) Hypothyroidism (Acute) Type 2 diabetes mellitus (Acute) Chronic diarrhea (Acute) Drug induced constipation (Acute) Past Medical History Medical History (Updated 05/28/23 @ 13:08 by Indy Cunningham RN) Back pain Arthritis Anemia GERD (gastroesophageal reflux disease) History of headache Osteoarthritis of knees, bilateral Depression Asthma High cholesterol Hypothyroidism Type 2 diabetes mellitus Bilateral carpal tunnel syndrome Fibromyalgia Chronic diarrhea Drug induced constipation Family History Family History Mother No problems noted. Father Cancer Sister Breast cancer Family history of problems with anesthesia: No Surgical History Surgical History (Updated 05/28/23 @ 13:45 by Indy Cunningham RN) History of total right knee replacement (TKR) Hx of bilateral cataract extraction History of esophagogastroduodenoscopy (EGD) H/O colonoscopy Hx of hand surgery History of cholecystectomy (~2011) S/p bilateral carpal tunnel release (~2003) Hx of laparoscopic adjustable gastric banding (~2009) History of removal of laparoscopic gastric banding device (~10/2012) H/O: hysterectomy (~10/2012) History of Problems with Anesthesia: No Social History Social History Household Members Other:: sister Housing: Apartment Are you a primary healthcare administrative assistant to a significant other at home: No Do you presently have visiting nurse or other home services: Yes (PCT) Alcohol intake: never Patient Tobacco Use Status: Current everyday Tobacco user Tobacco use type: Cigarette Cigarettes Per Day: 6 Years Smoked: 47 Smoked in Last 30 Days: Yes Use of substances other than those prescribed or required for medical reasons: No Have you been hit, kicked, punched, or otherwise hurt by someone within the past year? If so, by whom?: No Are you DNR?: No Advance Directives: No Advance Directives Information Provided: No Advance Directives on File: No Recently lost weight without trying: No Eating poorly because of decreased appetite: No Nutrition Risks: No Nutritional Risk Patient : No : No Poor oral hygiene: Yes (full upper and lower dentures) service: No Current occupational status: disabled Meds Allergies Allergy/AdvReac Type Severity Reaction Status Date / Time cortisone [CORTISONE] Allergy Intermediate ELEVATES Verified 06/03/23 11:14 BLOOD SUGAR ibuprofen [IBUPROFEN] Allergy Intermediate GI UPSET, Verified 06/03/23 11:14 stomach upset mayonnaise [MAYONNAISE] Allergy Mild RASH Verified 06/03/23 11:14 naproxen [NAPROXEN] AdvReac Intermediate STOMACH Verified 06/03/23 11:14 UPSET Vicodin Allergy Unknown palpitation Uncoded 11/05/22 10:42 s,hypertens ion Cortisone AdvReac Unknown hyperglycem Uncoded 11/05/22 10:42 ia Home Medications Medication Instructions Recorded Confirmed Last Taken Type bupropion HCl 300 mg 24 hr tablet, 300 mg PO QAM 05/16/20 05/28/23 06/09/23 History extended release (Wellbutrin XL) clonazepam 1 mg tablet (Klonopin) 0.5 mg PO BID 05/16/20 05/28/23 06/08/23 History furosemide 20 mg tablet (Lasix) 20 mg PO DAILY 05/16/20 05/28/23 06/08/23 History levothyroxine 150 mcg tablet 150 mcg PO DAILY 05/16/20 05/28/23 06/09/23 History metformin 500 mg tablet 500 mg PO DAILY 05/16/20 05/28/23 06/07/23 History montelukast 10 mg tablet 10 mg PO QPM 05/16/20 05/28/23 06/08/23 History (Singulair) albuterol sulfate 90 mcg/actuation 2 puff inhalation Q4-6H PRN 11/05/22 05/28/23 06/08/23 History aerosol inhaler (Proventil HFA) Shortness Of Breath Or Wheezing amlodipine 5 mg tablet 5 mg PO DAILY 11/05/22 05/28/23 06/09/23 History canagliflozin 300 mg tablet 300 mg PO DAILY 11/05/22 05/28/23 06/08/23 History (Invokana) dulaglutide 1.5 mg/0.5 mL 1.5 mg subcut QWEEK 11/05/22 05/28/23 06/01/23 History subcutaneous pen injector (Trulicity) insulin glargine 100 unit/mL (3 30 unit subcut BEDTIME 11/05/22 05/28/23 06/08/23 History mL) subcutaneous pen (Lantus Solostar U-100 Insulin) irbesartan 300 mg tablet 300 mg PO DAILY 11/05/22 05/28/23 06/08/23 History lancets 33 gauge (TRUEplus Lancets) #100 ea 11/05/22 11/05/22 06/08/23 History pen needle, diabetic 32 gauge x #50 ea 11/05/22 11/05/22 06/08/23 History 5/32 (Pentips) pravastatin 40 mg tablet 40 mg PO BEDTIME 11/05/22 05/28/23 06/08/23 History acetaminophen 325 mg tablet 650 mg PO Q4-6H PRN Pain 05/28/23 05/28/23 06/08/23 History lidocaine 5 % topical patch 1 patch topical DAILY PRN Pain 05/28/23 05/28/23 06/08/23 History (Lidoderm) pantoprazole 20 mg tablet,delayed 20 mg PO QAM 05/28/23 05/28/23 06/08/23 History release Exam Exam Date and Time: May 28, 2023 1351 Height,Weight and Vital Signs: Height 5 ft 1 in Weight 98.883 kg Last Vital Signs Pulse 61 05/28/23 13:23 Resp 18 05/28/23 13:23 BP 133/69 05/28/23 13:23 Pulse Ox 99 05/28/23 13:23 O2 Del Method Room Air 05/28/23 13:23 Pertinent Lab Results Pertinent Lab Results: Laboratory Tests 05/18/23 10:33 WBC 5.7 Hgb 14.9 Hct 45.5 Plt Count 231 Sodium 141 Potassium 3.6 Chloride 108 Carbon Dioxide 22 BUN 15 Creatinine 0.84 Laboratory Tests 04/05/23 04/27/23 13:51 11:15 Hemoglobin A1c % 6.5 H TSH 0.33 Free T4 0.91 Airway Mallampati Class: III TM Dist: >3cm Neck ROM: Full Denture: Upper and Lower Heart: RRR Lungs: CTA except dim RLL Assessment and Plan Assessment Anesthesia Assessment: Anesthesia Plan Discussed, Smoking Cess. Discussed and PAT Visit Final Anesthetic Review Family History of Problems with Anesthesia: No History of Problems with Anesthesia: No Documented by User: Marsha Parks MD 06/09/23 09:35 PMFSH Past Medical History Medical History (Updated 05/28/23 @ 13:08 by Indy Cunningham RN) Back pain Arthritis Anemia GERD (gastroesophageal reflux disease) History of headache Osteoarthritis of knees, bilateral Depression Asthma High cholesterol Hypothyroidism Type 2 diabetes mellitus Bilateral carpal tunnel syndrome Fibromyalgia Chronic diarrhea Drug induced constipation Family History Family History Mother No problems noted. Father Cancer Sister Breast cancer Surgical History Surgical History (Updated 05/28/23 @ 13:45 by Indy Cunningham, RN) History of total right knee replacement (TKR) Hx of bilateral cataract extraction History of esophagogastroduodenoscopy (EGD) H/O colonoscopy Hx of hand surgery History of cholecystectomy (~2011) S/p bilateral carpal tunnel release (~2003) Hx of laparoscopic adjustable gastric banding (~2009) History of removal of laparoscopic gastric banding device (~10/2012) H/O: hysterectomy (~10/2012) Social History Social History Household Members Other:: sister Housing: Apartment Are you a primary healthcare administrative assistant to a significant other at home: No Do you presently have visiting nurse or other home services: Yes (PCT) Alcohol intake: never Patient Tobacco Use Status: Current everyday Tobacco user Tobacco use type: Cigarette Cigarettes Per Day: 6 Years Smoked: 47 Smoked in Last 30 Days: Yes Use of substances other than those prescribed or required for medical reasons: No Have you been hit, kicked, punched, or otherwise hurt by someone within the past year? If so, by whom?: No Are you DNR?: No Advance Directives: No Advance Directives Information Provided: No Advance Directives on File: No Recently lost weight without trying: No Eating poorly because of decreased appetite: No Nutrition Risks: No Nutritional Risk Patient : No : No Poor oral hygiene: Yes (full upper and lower dentures) service: No Current occupational status: disabled Meds Allergies Allergy/AdvReac Type Severity Reaction Status Date / Time cortisone [CORTISONE] Allergy Intermediate ELEVATES Verified 06/03/23 11:14 BLOOD SUGAR ibuprofen [IBUPROFEN] Allergy Intermediate GI UPSET, Verified 06/03/23 11:14 stomach upset mayonnaise [MAYONNAISE] Allergy Mild RASH Verified 06/03/23 11:14 naproxen [NAPROXEN] AdvReac Intermediate STOMACH Verified 06/03/23 11:14 UPSET Vicodin Allergy Unknown palpitation Uncoded 11/05/22 10:42 s,hypertens ion Cortisone AdvReac Unknown hyperglycem Uncoded 11/05/22 10:42 ia Home Medications Medication Instructions Recorded Confirmed Last Taken Type bupropion HCl 300 mg 24 hr tablet, 300 mg PO QAM 05/16/20 05/28/23 06/09/23 History extended release (Wellbutrin XL) clonazepam 1 mg tablet (Klonopin) 0.5 mg PO BID 05/16/20 05/28/23 06/08/23 History furosemide 20 mg tablet (Lasix) 20 mg PO DAILY 05/16/20 05/28/23 06/08/23 History levothyroxine 150 mcg tablet 150 mcg PO DAILY 05/16/20 05/28/23 06/09/23 History metformin 500 mg tablet 500 mg PO DAILY 05/16/20 05/28/23 06/07/23 History montelukast 10 mg tablet 10 mg PO QPM 05/16/20 05/28/23 06/08/23 History (Singulair) albuterol sulfate 90 mcg/actuation 2 puff inhalation Q4-6H PRN 11/05/22 05/28/23 06/08/23 History aerosol inhaler (Proventil HFA) Shortness Of Breath Or Wheezing amlodipine 5 mg tablet 5 mg PO DAILY 11/05/22 05/28/23 06/09/23 History canagliflozin 300 mg tablet 300 mg PO DAILY 11/05/22 05/28/23 06/08/23 History (Invokana) dulaglutide 1.5 mg/0.5 mL 1.5 mg subcut QWEEK 11/05/22 05/28/23 06/01/23 History subcutaneous pen injector (Trulicity) insulin glargine 100 unit/mL (3 30 unit subcut BEDTIME 11/05/22 05/28/23 06/08/23 History mL) subcutaneous pen (Lantus Solostar U-100 Insulin) irbesartan 300 mg tablet 300 mg PO DAILY 11/05/22 05/28/23 06/08/23 History lancets 33 gauge (TRUEplus Lancets) #100 ea 11/05/22 11/05/22 06/08/23 History pen needle, diabetic 32 gauge x #50 ea 11/05/22 11/05/22 06/08/23 History 5/32 (Pentips) pravastatin 40 mg tablet 40 mg PO BEDTIME 11/05/22 05/28/23 06/08/23 History acetaminophen 325 mg tablet 650 mg PO Q4-6H PRN Pain 05/28/23 05/28/23 06/08/23 History lidocaine 5 % topical patch 1 patch topical DAILY PRN Pain 05/28/23 05/28/23 06/08/23 History (Lidoderm) pantoprazole 20 mg tablet,delayed 20 mg PO QAM 05/28/23 05/28/2323 Histo ry release Assessment and Plan Final Anesthetic Review ASA Class: III Final Preanesthetic Review: No Changes in Pt Med Stat, Meds/Allgs Chart Reviewed, Consent Obtained/Reviewed and Anes Risks/Benef Reviewed Patient Risk: Intermediate Procedure Risk: Intermediate Anesthetic Plan Anesthetic Plan: Spinal and Regional Block Disposition: Standard PACU
[2023-05-28 15:21] LABS: MRSA Nasal PCR NEGATIVE (Negative); SA Nasal PCR POSITIVE (Negative)
[2023-06-09] VITALS (18 sets, daily range): BP systolic 110–147; BP diastolic 49–89; PULSE 58–71; RESP 16–20; TEMP 36–36.6; O2SAT 95–99; BMI 41.7
--- NOTE | ~2023-06-09 | XR_ITS ---
EXAMINATION: XR KNEE, LEFT CLINICAL INFORMATION: Status post left total knee arthroplasty COMPARISON: None available. TECHNIQUE: AP and lateral views of the left knee. FINDINGS: The total knee arthroplasty components are in the usual position and alignment without evidence of loosening or fracture. [place] overlie the operative site. XR/XR knee LT 2V IMPRESSION: Standard postoperative appearance of the left total knee arthroplasty.
[2023-06-09 07:03] LABS: Glucose, Whole Blood 132 mg/dL (60-115)
[2023-06-09 07:13] LABS: Hematocrit 40.6 % (37.0-47.0); Hemoglobin 13.9 g/dl (12.0-16.0)
[2023-06-09] MEDS: vancomycin HCL 1,500 MG in 0.9 % Sodium Chloride 500 ML 333.33 MG IV ×2 (07:21→19:27)
[2023-06-09] MEDS: Lactated Ringers 1,000 ML 100 ML IVCONT ×2 (07:23→11:52)
--- NOTE | 2023-06-09 08:09 | MHC.SHP ---
Pre-Procedural Eval Section A Date of Service: 06/09/23 The patient is an INPATIENT: No Changes since office visit: No Cold of Flu in the past 2 weeks, No New Medical Problems, No Changes in Medication and No Patient answered all questions The History & Physical has been completed within 30 days and I have reviewed it.: Yes Section B Chief Complaint: Unilateral primary osteoarthritis, left knee Allergies: Allergies Allergy/AdvReac Type Severity Reaction Status Date / Time cortisone [CORTISONE] Allergy Intermediate ELEVATES Verified 06/03/23 11:14 BLOOD SUGAR ibuprofen [IBUPROFEN] Allergy Intermediate GI UPSET, Verified 06/03/23 11:14 stomach upset mayonnaise [MAYONNAISE] Allergy Mild RASH Verified 06/03/23 11:14 naproxen [NAPROXEN] AdvReac Intermediate STOMACH Verified 06/03/23 11:14 UPSET Vicodin Allergy Unknown palpitation Uncoded 11/05/22 10:42 s,hypertens ion Cortisone AdvReac Unknown hyperglycem Uncoded 11/05/22 10:42 ia Plan I have reviewed the history and physical and performed a pertinent physical examination on my patient. No changes have occurred unless specified. Time Spent With Patient Time: Total time managing care of this patient today ____ minutes.
--- NOTE | 2023-06-09 09:43 | P.BOP_ITS ---
Brief Operative Note Date of Service: 06/09/23 Pre-op diagnosis: left knee OA Post-op diagnosis: same Procedure: Left TKA Implants: [employer] Triathlon press fit cruciate retaining 08/28/10 Surgeon: Harsha Laureano MD Anesthesia: regional and spinal Was an Laser Beam Cutter used for this Procedure?: Yes Laser Beam Cutter: Drake López Estimated blood loss (mL): 50 Tourniquet time (min): 45 IV fluids (mL): 800 Pathology: other Condition: stable Disposition: PACU
[2023-06-09] MEDS: HYDROmorphone HCl 0.5 MG/0.5 ML SYRINGE 0.25 MG IVPUSH ×6 (10:08→18:28)
--- NOTE | 2023-06-09 10:56 | P.OP_ITS ---
Operative Note Operative Note Date of Service: 06/09/23 Narrative: Date of Service: 06/09/23 Pre-op diagnosis: left knee OA Post-op diagnosis: same Procedure: Left TKA Implants: [place] Triathlon press fit cruciate retaining 08/28/10 Surgeon: Harsha Laureano MD Anesthesia: regional and spinal Was an Newspaper Reporter used for this Procedure?: Yes Newspaper Reporter: Drake López Estimated blood loss (mL): 50 Tourniquet time (min): 45 IV fluids (mL): 800 Pathology: other Condition: stable Disposition: PACU Procedure in detail: The patient was brought to the operating room and prepped and draped in standard sterile fashion. A time-out was called to identify proper site proper procedure proper surgeon and IV antibiotics were administered. 1 g of IV tranexamic acid was ____ administered. I began by making a midline incision to the retinaculum and performed a medial parapatellar arthrotomy. The patella was translated laterally and the knee was flexed up. The medial and anterior comaprtments were eburnated . I performed a small medial peel and resected the infrapatellar fat pad. [place]'s line was then used to drill my intramedullary femoral guide and my distal femur cut of 10 mm was made in 5 degrees of valgus while protecting the soft tissues. I then measured a # 2 femu r and placed my cutting guide and made my anterior posterior and chamfer cuts protecting the soft tissues at all times. Once I was satisfied with my cuts I turned my attention to the tibia. I removed the meniscus medially and laterally and , using an external cutting guide, in line with the tibial crest and the third ray, I made my distal tibial cut in 3 deg slope of while protecting the PCL the posterior soft tissues at all times. An extension block was used to confirm appropriate amount of bony resection. I then sized a #3 tibia and once I was satisfied that there was complete tibial coverage I placed my trial and with the trial femur in place took the knee through range of motion. I was satisfied with the extension and flexion as well as the stability and balance at 0, 30 and 90 degrees. I then turned my attention to the patella where I removed 1 cm from the undersurface of the patella and then trialed a 29a patellar button. Again the knee was taken through range of motion I was satisfied with the tracking. I then returned to the femur and drilled my femoral lug holes and prepared the tibia. A femoral bone plug was placed and the knee was irrigated copiously. I then press fit the patella, tibia and femur in standard fashion. I trialed different inserts until I selected a #11 insert. The final insert was placed and a 3 minutes iodine soak with local TXA was performed. A [place]olf cautery wand was used to maintain hemostasis over the capsule and meniscal beds. The knee was then closed with a running Quill suture, a 3 0 Vicryl and nisa on the skin. Patient was then placed in sterile dressing and brought to recovery room in stable condition there were no known complications.
[2023-06-09 11:50] LABS: Glucose, Whole Blood 133 mg/dL (60-115)
--- NOTE | 2023-06-09 11:58 | PHA.MEDREC ---
Pharmacy Consult ? Medication Reconciliation Pharmacy has completed the medication reconciliation.pharmacy has reviewed med rec done by nursing
[2023-06-09] MEDS: oxyCODONE HCl Immed Release 5 MG TABLET PO ×3 (12:44→21:14)
--- NOTE | 2023-06-09 15:43 | P.CONHOSP_ITS ---
History of Present Illness Data of Consult Service Date: 06/09/23 Primary Care Provider: BIANCA Arboleda HPI 57-year-old woman with history of asthma/ COPD, hypertension, depression, diabetes mellitus admitted by Orthopedic surgery and is status post left total knee arthroplasty. Surgery was unremarkable. Patient has been able to eat and drink without any nausea or vomiting. Patient is hemodynamically stable. Currently resting in bed with minimal amount of pain. No acute medical complaints at this time. Review of Systems 2 Review of Systems: Denies any recent fever chills or decrease in appetite respiratory denies any shortness of breath coverage production cardiovascular Denied chest pain gastrointestinal denies any dysphagia abdominal pain nausea vomiting or diarrhea genitourinary denies any dysuria frequency or hematuria musculoskeletal see HPI neuropsych denies any weakness or seizures all other systems reviewed are negative PENDING SALE TO [facility] Medical History Back pain Arthritis Anemia GERD (gastroesophageal reflux disease) History of headache Osteoarthritis of knees, bilateral Depression Asthma High cholesterol Hypothyroidism Type 2 diabetes mellitus Bilateral carpal tunnel syndrome Fibromyalgia Chronic diarrhea Drug induced constipation Family History Mother No problems noted. Father Cancer Sister Breast cancer Surgical History History of total right knee replacement (TKR) Hx of bilateral cataract extraction History of esophagogastroduodenoscopy (EGD) H/O colonoscopy Hx of hand surgery History of cholecystectomy (~2011) S/p bilateral carpal tunnel release (~2003) Hx of laparoscopic adjustable gastric banding (~2009) History of removal of laparoscopic gastric banding device (~10/2012) H/O: hysterectomy (~10/2012) Social History Household Members: Family Household Members Other:: sister Housing: House Are you a primary cardiac care unit nurse to a significant other at home: No Do you presently have visiting nurse or other home services: Yes (Daughter [employer]) Alcohol intake: never Patient Tobacco Use Status: Current everyday Tobacco user Tobacco use type: Cigarette Cigarettes Per Day: 6 Years Smoked: 47 Smoked in Last 30 Days: Yes Patient Interested in Nicotine Replacement: No Patient Given Instructions on How to Stop Smoking: No Use of substances other than those prescribed or required for medical reasons: No Currently Displaying Signs/Symptoms of Drug Intoxication Withdrawal: No Have you been hit, kicked, punched, or otherwise hurt by someone within the past year? If so, by whom?: No Do you feel safe in your current relationship?: No Current Relationship Is there a partner from a previous relationship who is making you feel unsafe now?: No Are you made to feel afraid or neglected: No Are you DNR?: No Advance Directives: No Advance Directives Information Provided: No Advance Directives on File: No Do you have thoughts of harming others: None Do you have a plan to hurt others: No Plan Recently lost weight without trying: No Eating poorly because of decreased appetite: No Nutrition Risks: No Nutritional Risk Patient : No : No Poor oral hygiene: No service: No Current occupational status: disabled Meds Allergies Allergy/AdvReac Type Severity Reaction Status Date / Time cortisone [CORTISONE] Allergy Intermediate ELEVATES Verified 06/03/23 11:14 BLOOD SUGAR ibuprofen [IBUPROFEN] Allergy Intermediate GI UPSET, Verified 06/03/23 11:14 stomach upset mayonnaise [MAYONNAISE] Allergy Mild RASH Verified 06/03/23 11:14 naproxen [NAPROXEN] AdvReac Intermediate STOMACH Verified 06/03/23 11:14 UPSET Vicodin Allergy Unknown palpitation Uncoded 11/05/22 10:42 s,hypertens ion Cortisone AdvReac Unknown hyperglycem Uncoded 11/05/22 10:42 ia Active Medications: Current Medications Acetaminophen (Acetaminophen 325 Mg Tablet) 650 mg PO Q6H PRN PRN Reason: Pain, Mild (Pain Scale 1-3) Albuterol Sulfate (Albuterol Sulfate 90 Mcg 8 Gm Inhaler) 2 puff INHALE RQ4H PRN PRN Reason: Shortness Of Breath Or Wheezing Amlodipine Besylate (Amlodipine Besylate 5 Mg Tablet) 5 mg PO DAILY [facility]; Protocol Bupropion HCl (Bupropion Hcl Xl 300 Mg Tab.Er.24h) 300 mg PO DAILY [facility] Celecoxib (Celecoxib 200 Mg Capsule) 200 mg PO BID [facility] Clonazepam (Clonazepam 0.5 Mg Tablet) 0.5 mg PO BID [facility] Cyclobenzaprine HCl (Cyclobenzaprine Hcl 10 Mg Tablet) 10 mg PO TID PRN PRN Reason: muscle spasm Docusate Sodium (Docusate Sodium 100 Mg Capsule) 100 mg PO BID [facility] Furosemide (Furosemide 20 Mg Tablet) 20 mg PO DAILY [facility]; Protocol Hydromorphone HCl (Hydromorphone Hcl 0.5 Mg/0.5 Ml Syringe) 0.25 mg IVPUSH Q4H PRN; Protocol PRN Reason: Pain, Severe (Pain Scale 7-10) Last Admin: 06/09/23 13:34 Dose: 0.25 mg Lactated Ringer's (Lr) 1,000 mls @ 100 mls/hr IVCONT .Q10H [facility]IVEK Last Admin: 06/09/23 11:52 Dose: 100 mls/hr Vancomycin HCl 1,500 mg/ (Sodium Chloride) 500 mls @ 333.333 mls/hr IV POSTOP ONE Stop: 06/09/23 20:54 Insulin Glargine (Insulin Glargine,Hum.Rec.Anlog 100 Unit/Ml 10 Ml Vial) 30 unit SUBCUT BEDTIME [facility] Lidocaine (Lidocaine 4 % Patch Adh..Patch) 1 patch TRANSDERMA DAILY PRN PRN Reason: Pain Metformin HCl (Metformin Hcl 500 Mg Tablet) 500 mg PO DAILY [facility] Montelukast Sodium (Montelukast Sodium 10 Mg Tablet) 10 mg PO BEDTIME [facility] Non-Formulary Medication (Canagliflozin [Invokana]) 300 mg PO DAILY [facility] Non-Formulary Medication (Dulaglutide [Trulicity]) 1.5 mg SUBCUT QWEEK [facility] Omeprazole (Omeprazole 20 Mg Capsule.Dr) 20 mg PO DAILY@0630 [facility] Ondansetron HCl (Ondansetron Hcl 4 Mg/2 Ml Vial) 4 mg IVPUSH Q8H PRN PRN Reason: Nausea and Vomiting Oxycodone HCl (Oxycodone Hcl Immed Release 5 Mg Tablet) 5 mg PO Q4H PRN PRN Reason: Pain, Moderate(Pain Scale 4-6) Last Admin: 06/09/23 12:44 Dose: 5 mg Oxycodone HCl (Oxycodone Hcl Er 10 Mg Tab.Er.12h) 10 mg PO BID [facility] Pharmacy Consult (Consult Rx Vancomycin Dosing) 1 each MISCELLANE DAILY PRN PRN Reason: Consult order Pharmacy Consult (Consult Rx Vancomycin Dosing) 1 each MISCELLANE DAILY PRN PRN Reason: Consult order Pravastatin Sodium (Pravastatin Sodium 40 Mg Tablet) 40 mg PO BEDTIME [facility] Sodium Chloride (0.9 % Sodium Chloride Flush 3 Ml Syringe) 3 ml IVFLUSH QSHIFT [facility] Last Admin: 06/09/23 14:07 Dose: Not Given Valsartan (Valsartan 160 Mg Tablet) 160 mg PO DAILY [facility] Home Medications Medication Instructions Recorded Confirmed Last Taken Type bupropion HCl 300 mg 24 hr tablet, 300 mg PO QAM 05/16/20 05/28/23 06/09/23 History extended release (Wellbutrin XL) clonazepam 1 mg tablet (Klonopin) 0.5 mg PO BID 05/16/20 05/28/23 06/08/23 History furosemide 20 mg tablet (Lasix) 20 mg PO DAILY 05/16/20 05/28/23 06/08/23 History levothyroxine 150 mcg tablet 150 mcg PO MOTUWETHFRSA@0600 05/16/20 06/09/23 06/09/23 History metformin 500 mg tablet 500 mg PO DAILY 05/16/20 05/28/23 06/07/23 History montelukast 10 mg tablet 10 mg PO QPM 05/16/20 05/28/23 06/08/23 History (Singulair) albuterol sulfate 90 mcg/actuation 2 puff inhalation Q4-6H PRN 11/05/22 05/28/23 06/08/23 History aerosol inhaler (Proventil HFA) Shortness Of Breath Or Wheezing amlodipine 5 mg tablet 5 mg PO DAILY 11/05/22 05/28/23 06/09/23 History canagliflozin 300 mg tablet 300 mg PO DAILY 11/05/22 05/28/23 06/08/23 History (Invokana) dulaglutide 1.5 mg/0.5 mL 1.5 mg subcut QWEEK 11/05/22 05/28/23 06/01/23 History subcutaneous pen injector (Trulicity) insulin glargine 100 unit/mL (3 30 unit subcut BEDTIME 11/05/22 05/28/23 06/08/23 History mL) subcutaneous pen (Lantus Solostar U-100 Insulin) irbesartan 300 mg tablet 300 mg PO DAILY 11/05/22 05/28/23 06/08/23 History lancets 33 gauge (TRUEplus Lancets) #100 ea 11/05/22 11/05/22 06/08/23 History pen needle, diabetic 32 gauge x #50 ea 11/05/22 11/05/22 06/08/23 History / (Pentips) pravastatin 40 mg tablet 40 mg PO BEDTIME 11/05/22 05/28/23 06/08/23 History acetaminophen 325 mg tablet 650 mg PO Q4-6H PRN Pain 05/28/23 05/28/23 06/08/23 History lidocaine 5 % topical patch 1 patch topical DAILY PRN Pain 05/28/23 05/28/23 06/08/23 History (Lidoderm) pantoprazole 20 mg tablet,delayed 20 mg PO QAM 05/28/23 05/28/23 06/08/23 History release Physical Exam 2 Vital Signs and Narrative: Vital Signs: Last Vital Signs Temp 96.8 F 06/09/23 12:13 Pulse 58 06/09/23 14:00 Resp 16 06/09/23 12:13 BP 147/80 H 06/09/23 14:00 Pulse Ox 96 06/09/23 14:00 O2 Del Method Room Air 06/09/23 12:13 BMI result Body Mass Index 41.7 Appearing in no acute distress head is normocephalic atraumatic eyes pupils are PERRLA sclera is anicteric mouth throat mucous membranes are intact and moist neck is supple no lymphadenopathy, no JVD noted lung sounds are clear to auscultation heart regular rate rhythm, clear S1, S2 positive bowel sounds, abdomen is soft, nontender neuro patient is alert x3, no focal deficits left knee dressing clean dry and intact, surgical incision not visualized Results Labs 06/09/23 07:04 Labs: Laboratory Results - last 24 hr 06/09/23 06/09/23 06:54 11:45 POC Glucose 132 H 133 H Imaging Radiologist's Impressions: Impressions Knee X-Ray 06/09/23 12:23 IMPRESSION: Standard postoperative appearance of the left total knee arthroplasty. Assessment and Plan (1) Type 2 diabetes mellitus: Status: Acute Plan 57-year-old woman status post left total knee arthroplasty Left total knee arthroplasty Management as per surgical team Pain management diabetes mellitus type 2 Sliding scale, ADA diet Lantus and metformin Hypertension. Stable blood pressure Continue amlodipine, valsartan Hypothyroidism Continue levothyroxine Asthma No exacerbation Continue home inhalers Mental health Continue medications GERD Continue PPI DVT prophylaxis as per admitting provider Full code Medical consultation complete. Will sign off
[2023-06-09 16:36] LABS: Glucose, Whole Blood 182 mg/dL (60-115)
[2023-06-09] MEDS: Insulin Lispro 100 UNIT/ML 3 ML VIAL SUBCUT ×2 (16:40→21:15)
[2023-06-09 20:39] LABS: Glucose, Whole Blood 152 mg/dL (60-115)
[2023-06-09] MEDS: Docusate Sodium 100 MG CAPSULE PO (21:14)
[2023-06-09] MEDS: Insulin Glargine,Hum.rec.anlog 100 UNIT/ML 10 ML VIAL 30 UNIT SUBCUT (21:14)
[2023-06-09] MEDS: Celecoxib 200 MG CAPSULE PO (21:14)
[2023-06-09] MEDS: Montelukast Sodium 10 MG TABLET PO (21:14)
[2023-06-09] MEDS: oxyCODONE HCl ER 10 MG TAB.ER.12H PO (21:14)
[2023-06-09] MEDS: clonazePAM 0.5 MG TABLET PO (21:14)
[2023-06-09] MEDS: Pravastatin Sodium 40 MG TABLET PO (21:14)
[2023-06-10] MEDS: Lactated Ringers 1,000 ML 100 ML IVCONT (01:18)
[2023-06-10 03:35] VITALS: BP 148/78; PULSE 82; RESP 17; TEMP 36.3; O2SAT 95
[2023-06-10] MEDS: oxyCODONE HCl Immed Release 5 MG TABLET PO ×2 (05:38→10:47)
[2023-06-10] MEDS: Omeprazole 20 MG CAPSULE.DR PO (05:38)
[2023-06-10 06:15] LABS: MANUAL DIFF FLAG NO
[2023-06-10 06:18] LABS: Basophils Percent Auto 0.3 % (0-2); Eosinophils Absolute Auto 0.1 X10*3/uL (0.0-0.4); Eosinophils Percent Auto 0.7 % (0-4); Hematocrit 36.6 % (37.0-47.0); Hemoglobin 12.4 g/dl (12.0-16.0); Imm Gran Abs Auto 0.04 X10*3/uL (0.00-0.03); Imm Gran Pct Auto 0.4 % (0.0-0.4); Lymphocytes Absolute Auto 1.8 X10*3/uL (1.2-4.9); Mean Corpuscular HGB Conc 33.9 g/dl (31.0-35.0); Mean Corpuscular Hemoglobin 30.5 pg (27.0-33.0); Mean Corpuscular Volume 89.9 fL (80.0-98.0); Mean Platelet Volume 11.1 fL (9.4-12.3); Monocytes Absolute Auto 1.3 X10*3/uL (0.1-1.2); Neutrophils Absolute Auto 5.8 x10*3/uL (2.0-8.3); Neutrophils Percent Auto 64.6 % (45-73); Platelet Count 199 X10*3/uL (160-400); Red Blood Count 4.07 X10*6/uL (4.20-5.50)
[2023-06-10 06:33] LABS: Anion Gap 9 (12-20); Blood Urea Nitrogen 9 mg/dL (9-16); Calcium 8.7 mg/dL (8.4-10.2); Carbon Dioxide 25 mmol/L (22-29); Chloride 106 mmol/L (96-108); Estimated Glomerular Filt Rate > 60; Glucose Fasting 101 mg/dL (60-99); Potassium 3.8 mmol/L (3.3-5.1); Sodium 136 mmol/L (135-145)
[2023-06-10 07:13] VITALS: BP 131/57; PULSE 56; RESP 18; TEMP 36.7; O2SAT 97
[2023-06-10 07:26] VITALS: BP 164/80; PULSE 75; RESP 20; TEMP 36.6; O2SAT 96
[2023-06-10] MEDS: Docusate Sodium 100 MG CAPSULE PO (07:42)
[2023-06-10] MEDS: buPROPion HCl XL 300 MG TAB.ER.24H PO (07:42)
[2023-06-10] MEDS: Celecoxib 200 MG CAPSULE PO (07:42)
[2023-06-10] MEDS: Valsartan 160 MG TABLET PO (07:42)
[2023-06-10] MEDS: oxyCODONE HCl ER 10 MG TAB.ER.12H PO (07:43)
[2023-06-10] MEDS: Furosemide 20 MG TABLET PO (07:43)
[2023-06-10] MEDS: clonazePAM 0.5 MG TABLET PO (07:43)
[2023-06-10] MEDS: metFORMIN HCl 500 MG TABLET PO (07:43)
[2023-06-10] MEDS: HYDROmorphone HCl 0.5 MG/0.5 ML SYRINGE 0.25 MG IVPUSH (07:43)
[2023-06-10] MEDS: amLODIPine Besylate 5 MG TABLET PO (07:47)
[2023-06-10 07:54] LABS: Glucose, Whole Blood 117 mg/dL (60-115)
--- NOTE | 2023-06-10 08:51 | PM.PNORT ---
Subjective Subjective Date of Service: 06/10/23 Interval history: POD1 s/p LTKA Patient is resting in bed comfortably No overnight events Pain is managed No additional complaints Physical Exam Vital Signs: Vital Signs: Last Vital Signs Temp 98 F 06/10/23 07:26 Pulse 75 06/10/23 07:26 Resp 20 06/10/23 07:26 BP 164/80 H 06/10/23 07:26 Pulse Ox 96 06/10/23 07:26 O2 Del Method Room Air 06/10/23 07:26 BMI result Body Mass Index 41.7 Const: General: cooperative, healthy appearing and no acute distress Resp: Effort & Inspection: normal respiratory effort and able to speak in complete sentences Cardio: Rate: regular rate Peripheral pulses: Peripheral pulses 2+ throughout GI: Palpation (GI): Soft to palpation Skin: Lesions: no lesions Rashes: no rashes Extrem: Other: Left knee dressing is c/d/i. Able to dorsi/plantar flex. Calf is supple and nontender. Sensation intact. Pedal pulse intact. Procedures Date of Service Date of Service: 06/10/23 Progress Note: A&P Assessment and plan (1) Status post total knee replacement, left: Status: Acute Assessment and Plan: Continue pain mgmnt Begin ASA for dvt ppx begin PT for LTKA Dispo planning-Pending PT eval, pain mgmnt (2) BMI 40.0-44.9, adult: Status: Acute (3) Type 2 diabetes mellitus: Status: Acute Time Spent With Patient Time: Total time managing care of this patient today ____ minutes. Quality Stroke Does the patient have a stroke diagnosis?: No VTE Prior VTE?: No VTE Risk Level:: Medical - moderate - high VTE Device Contraindication: N/A - Device Ordered VTE Drug Contraindication: N/A - Med Ordered
[2023-06-10 08:57] VITALS: BP 164/80; PULSE 75; O2SAT 96
--- NOTE | 2023-06-10 10:42 | PM.DS ---
DS: Providers Provider Date of Service: 06/10/23 Primary care physician: BIANCA Arboleda Consults: 06/09/23 11:33 Consult to Hospitalist Routine Comment: Consulting Provider: Hospitalist Reason For Exam: Routine medical management - DM DS: Diagnosis Discharge Diagnosis (1) Status post total knee replacement, left: Status: Acute (2) BMI 40.0-44.9, adult: Status: Acute (3) Type 2 diabetes mellitus: Status: Acute DS: Summary Hospital Course Hospital Course: The patient underwent a successful left total knee arthroplasty, they were transferred to PACU and then to the floor to recover. During their stay, their vitals were stable, afebrile at 98.0. Labs were unremarkable, H/H 12.4/36.6. POD 1 they were started on Aspirin 325mg po bid for DVT ppx, they also received Physical Therapy services twice a day. Prior to discharge, their dressing was changed, incision clean dry and intact, new Aquacel dressing applied and the plan was to be discharged home with VNA services. Time Attestation Discharge coordination time: Less than 30 minutes Quality: Safe Use of Opioids Does Pt have an Active Cancer Diagnosis on the Problem List?: No Quality: Stroke Does the patient have a stroke diagnosis?: No Physical Exam Vital Signs: Vital Signs: Last Vital Signs Temp 98 F 06/10/23 07:26 Pulse 75 06/10/23 08:57 Resp 20 06/10/23 07:26 BP 164/80 H 06/10/23 08:57 Pulse Ox 96 06/10/23 08:57 O2 Del Method Room Air 06/10/23 07:26 BMI result Body Mass Index 41.7 Const: General: cooperative, healthy appearing and no acute distress Resp: Effort & Inspection: normal respiratory effort and able to speak in complete sentences Cardio: Rate: regular rate Peripheral pulses: Peripheral pulses 2+ throughout GI: Palpation (GI): Soft to palpation Skin: Lesions: no lesions Rashes: no rashes Extrem: Other: Left knee dressing is c/d/i. Able to dorsi/plantar flex. Calf is supple and nontender. Sensation intact. Pedal pulse intact. DS: Data Data Completed and Pending Pending studies at discharge: Pending at discharge 06/09/23 09:10 Surgical [PTH] Routine Labs on day of discharge: Laboratory Results - last 24 hr 06/09/23 06/09/23 06/09/23 11:45 16:23 20:18 WBC RBC Hgb Hct MCV MCH MCHC RDW Plt Count MPV Immature Gran % (Auto) Neut % (Auto) Lymph % (Auto) [place] % (Auto) Eos % (Auto) Baso % (Auto) Lymph # (Auto) [place] # (Auto) Eos # (Auto) Baso # (Auto) Abs Immat Gran (auto) Absolute Neuts (auto) Absolute Nucleated RBC Nucleated RBC % (auto) Sodium Potassium Chloride Carbon Dioxide Anion Gap BUN Creatinine Estim Creat Clear Calc Estimated GFR POC Glucose 133 H 182 H 152 H Fasting Glucose Calcium 06/10/23 06/10/23 05:12 07:30 WBC 9.0 RBC 4.07 L Hgb 12.4 Hct 36.6 L MCV 89.9 MCH 30.5 MCHC 33.9 RDW 13.0 Plt Count 199 MPV 11.1 Immature Gran % (Auto) 0.4 Neut % (Auto) 64.6 Lymph % (Auto) 20.0 [place] % (Auto) 14.0 H Eos % (Auto) 0.7 Baso % (Auto) 0.3 Lymph # (Auto) 1.8 [place] # (Auto) 1.3 H Eos # (Auto) 0.1 Baso # (Auto) 0.0 Abs Immat Gran (auto) 0.04 H Absolute Neuts (auto) 5.8 Absolute Nucleated RBC 0.000 Nucleated RBC % (auto) 0.0 Sodium 136 Potassium 3.8 Chloride 106 Carbon Dioxide 25 Anion Gap 9 L BUN 9 Creatinine 0.65 Estim Creat Clear Calc 101.0 Estimated GFR > 60 POC Glucose 117 H Fasting Glucose 101 H Calcium 8.7 D Discharge Plan Discharge Referrals: Princess Min FNP [Primary Care Provider] - 1 Week Discharge Medications: New celecoxib 200 mg Capsule 200 mg PO BID 30 Days Qty: 60 0RF acetaminophen 325 mg Tablet 650 mg PO Q6H PRN (Reason: Pain, Mild (Pain Scale 1-3)) 30 Days Qty: 240 0RF aspirin 325 mg Tablet 325 mg PO Q12H 42 Days Qty: 84 0RF docusate sodium 100 mg Capsule 100 mg PO BID 30 Days Qty: 60 0RF oxycodone 5 mg Tablet 5 mg PO Q4H PRN (Reason: Pain, Moderate(Pain Scale 4-6)) 7 Days Qty: 42 0RF Rx Instructions: Partial Fill upon patient request. Continued cyclobenzaprine 10 mg tablet 10 mg PO TID PRN (Reason: muscle spasm) Qty: 12 0RF [id number] 5-10-100 mg/5 mL liquid 10 ml PO Q4H PRN (Reason: cough) Qty: 118 0RF lidocaine [Lidoderm] 5 % adhesive patch,medicated 1 patch topical DAILY PRN (Reason: Pain) Protocol: Apply to: Apply to: knees Rx Instructions: leave on most painful area for up to 12 hrs pantoprazole 20 mg tablet,delayed release (DR/EC) 20 mg PO QAM furosemide [Lasix] 20 mg tablet 20 mg PO DAILY bupropion HCl [Wellbutrin XL] 300 mg tablet extended release 24 hr 300 mg PO QAM clonazepam [Klonopin] 1 mg tablet 0.5 mg PO BID montelukast [Singulair] 10 mg tablet 10 mg PO QPM levothyroxine 150 mcg tablet 150 mcg PO MOTUWETHFRSA@0600 metformin 500 mg tablet 500 mg PO DAILY Invokana 300 mg tablet 300 mg PO DAILY insulin glargine [Lantus Solostar U-100 Insulin] 100 unit/mL (3 mL) insulin pen 30 unit subcut BEDTIME Patient Comments: only 1/2 dose yesterday Trulicity 1.5 mg/0.5 mL pen injector 1.5 mg subcut QWEEK Patient Comments: every albuterol sulfate [Proventil HFA] 90 mcg/actuation HFA aerosol inhaler 2 puff inhalation Q4-6H PRN (Reason: Shortness Of Breath Or Wheezing) (DME) pen needle, diabetic [Pentips] 32 gauge x 32 needle See Rx Instructions .ROUTE DIRECTED Qty: 50 Rx Instructions: As directed once a day (DME) lancets [TRUEplus Lancets] 33 gauge misc See Rx Instructions .ROUTE BID Qty: 100 Rx Instructions: As directed irbesartan 300 mg tablet 300 mg PO DAILY amlodipine 5 mg tablet 5 mg PO DAILY pravastatin 40 mg tablet 40 mg PO BEDTIME (DME) blood-glucose meter [FreeStyle Lite Meter] Kit See Rx Instructions .Route Qty: 1 0RF Rx Instructions: As directed checks 4 X/day Discontinued acetaminophen 325 mg tablet 650 mg PO Q4-6H PRN (Reason: Pain) Discharge Orders: Discharge Order (Routine); Ordered 06/10/23 Ordered By: Yee Thompson Diet: Advance to usual diet Activity on Discharge: Use cane or walker Activity Restrictions/Additional Instructions: Physical Therapy for ROM 0-120, quad strength, gait training. Use walker for ambulation Limit stair climbing, No shower, No tub bath, No driving Continue anticoagulant Keep Aquacel dressing clean, dry and intact. Follow up with orthopedics in 2 weeks
--- NOTE | 2023-06-10 10:43 | W.MHC.F2F ---
Service Date Service Date: 06/10/23 Encounter Date of encounter: 06/10/23 Reasons for Services Signs and symptoms assessed: Pt. is considered homebound due to recent surgery. Unable to drive, poor balance, poor gait mechanics. s/p LTKA Reason for physical therapy: home safety and mobility, therapeutic exercises, restore joint function, gait/transfer training, assess need for DME and ADL training Homebound: Leaving the home is medically contraindicated at this time without the asist of a device and/or another person due th the listed conditions above and below. Reason homebound: unsteady gait / fall risk, leg weakness, pain with ambulation, pain with transfers, poor balance / fall risk and unable to drive Certification: Based on the above findings, I certify that this patient is confined to the home and needs intermittent chcf care, physical therapy and/or speech therapy, or continues to need occupational therapy. The patient is under my care, and I have initiated the establishment of the plan of care. The patient will be followed by a physician who will periodically review the plan of care. Time Spent With Patient Time: Total time managing care of this patient today ____ minutes.
[2023-06-10 11:33] LABS: Glucose, Whole Blood 152 mg/dL (60-115)
[2023-06-10] MEDS: Insulin Lispro 100 UNIT/ML 3 ML VIAL SUBCUT (11:36)
[2023-06-10] MEDS: Aspirin 325 MG TABLET PO (11:36)
--- NOTE | 2023-06-11 10:12 | HO.POSTANES ---
Post Anesthesia Evaluation Post Anesthesia Evaluation Date of Service: 06/10/23 Vital Signs: Patient seen on 06/10/23 at 0900am Vitals: 164/80, 75, 20, 98F, 96%RA Anesthesia: Spinal and Nerve Block Mental Status: Awake Pain Control: Satisfactory Nausea/Vomiting: None Hydration: Adequate Anesthesia-Related Issues: No Anes. Related Issues
== END 2023-06-10 13:05 | disposition home health service (06) ==
LOC: HO.SSS 06:53 → HO.S3 10:05
PROVIDERS: Physician Assistant; PCP Registered Nurse; Visit Provider Orthopaedic Surgery
PROC: (CPT 27447; principal; 2023-06-09 08:40)
DX: M17.12 Unilateral primary osteoarthritis, left knee (principal); E11.9 Type 2 diabetes mellitus without complications; E78.5 Hyperlipidemia, unspecified; K21.9 Gastro-esophageal reflux disease without esophagitis; M79.7 Fibromyalgia; D64.9 Anemia, unspecified; J45.909 Unspecified asthma, uncomplicated; K52.9 Noninfective gastroenteritis and colitis, unspecified; F17.210 Nicotine dependence, cigarettes, uncomplicated; E66.9 Obesity, unspecified; Z68.41 Body mass index [BMI] 40.0-44.9, adult; Z96.652 Presence of left artificial knee joint; Z79.4 Long term (current) use of insulin; Z79.899 Other long term (current) drug therapy
CPT/HCPCS: 27447; 36415; 73560; 80048; 82947; 85014; 85018; 85025; 86850; 86900; 86901; 87640; 87641; 88305; 88311; 93005; 97110; 97116; 97162; 97530; C1776; J0665; J1170; J2250; J2704; J3371; J7120

== ENCOUNTER → 2023-06-09 06:30 | Outpatient (BNV) | payer MEDICAID, SELFPAY | PROVIDERS: PCP Registered Nurse; Visit Provider Nurse Practitioner Acute Care | DX: E11.9 Type 2 diabetes mellitus without complications (principal) | CPT/HCPCS: 99221 ==

== ENCOUNTER → 2023-06-09 06:30 | Outpatient (BNV) | payer MEDICAID, SELFPAY | PROVIDERS: PCP Registered Nurse; Visit Provider Orthopaedic Surgery | DX: M17.12 Unilateral primary osteoarthritis, left knee (principal) | CPT/HCPCS: 27447; 99024 ==

== ENCOUNTER 2023-06-16 10:24 | Outpatient (AMB) | payer MEDICAID, SELFPAY ==
--- NOTE | 2023-06-16 10:28 | A.OFFVIS_ITS ---
Intake Intake Visit Reasons: PO-Left TKA-DOS 06/09/23 NE Intake Note: Argelia mckinnon 57 year old female presents today for a post operative wound check s/p left TKA, DOS 06/09/23 NE. Patient reports she has an increase of pain, now radiating to her peres and ankle. States that she believes PT is going well, however she has concerns due to the increase of pain and swelling. Also states its warm to the touch. Allergies cortisone [CORTISONE] Allergy (Intermediate, Verified 06/16/23 10:35) ELEVATES BLOOD SUGAR ibuprofen [IBUPROFEN] Allergy (Intermediate, Verified 06/16/23 10:35) GI UPSET, stomach upset mayonnaise [MAYONNAISE] Allergy (Mild, Verified 06/16/23 10:35) RASH naproxen [NAPROXEN] Adverse Reaction (Intermediate, Verified 06/16/23 10:35) STOMACH UPSET Vicodin Allergy (Unknown, Uncoded 06/16/23 10:35) palpitations,hypertension Cortisone Adverse Reaction (Unknown, Uncoded 06/16/23 10:35) hyperglycemia HPI PO-Left TKA-DOS 06/09/23 NE HPI Details 57-year-old female who returns to the [facility] today for post-op left TKA, 06/09/[address] Laureano. She states she has increased pain, bruising and swelling which is now radiating to her peres and ankle region. She also c/o her knee being warm and tender to touch. She continues to work with physical therapy as instructed. She is doing well otherwise and has no concerns today. [facility] Medical History (Updated 06/11/23 @ 00:03 by Mani Castanon) Back pain Arthritis Anemia GERD (gastroesophageal reflux disease) History of headache Osteoarthritis of knees, bilateral Depression Asthma High cholesterol Hypothyroidism Type 2 diabetes mellitus Bilateral carpal tunnel syndrome Fibromyalgia Chronic diarrhea Drug induced constipation Surgical History History of total right knee replacement (TKR) Hx of bilateral cataract extraction History of esophagogastroduodenoscopy (EGD) H/O colonoscopy Hx of hand surgery History of cholecystectomy (~2011) S/p bilateral carpal tunnel release (~2003) Hx of laparoscopic adjustable gastric banding (~2009) History of removal of laparoscopic gastric banding device (~10/2012) H/O: hysterectomy (~10/2012) Family History Mother No problems noted. Father Cancer Sister Breast cancer Household Members: Family Household Members Other:: sister Housing: House Are you a primary daycare teacher to a significant other at home: No Do you presently have visiting nurse or other home services: Yes (Daughter SEWING MACHINE MAINTENANCE MECHANIC) Alcohol intake: never Patient Tobacco Use Status: Current everyday Tobacco user Tobacco use type: Cigarette Cigarettes Per Day: 6 Years Smoked: 47 service: No Current occupational status: disabled Review of Systems Const All systems reviewed & are unremarkable except as noted in HPI and below Physical Exam Extrem Other: Left knee: Incision clean, dry and intact. There is no surrounding erythema, no joint effusion. She does have some bruising over the midthigh with some scatter ed bruising over the anterior portion of the peres. Calf supple, nontender. Negative Homans. ROM is 0-90 degrees. NVI. Assessment & Plan Assessment & Plan (1) Status post total knee replacement, left: Code(s): Z96.652 - Presence of left artificial knee joint Plan I reassured the patient that these are all normal findings. It is likely the bruising is due to torniquet during surgery. I would continue to work with physical therapy and she is taking aspirin 325 mg PO twice a day which she will continue. She will see us back next week for her routine post-op appointment. Patient Instructions: Scribed for Drake López PA-C, by Deshaun Cruz medical chemist, on 06/16/2023 at 11:00 AM EST. I, Drake López PA-C, have personally reviewed and agree with the information entered by the scribe. Coding Level of Care Code Global (54507) Diagnoses Status post total knee replacement, left Z96.652
== END 2023-06-16 11:32 | disposition home or self-care (01) ==
PROVIDERS: PCP Registered Nurse; Visit Provider Physician Assistant
DX: Z96.652 Presence of left artificial knee joint (principal)
CPT/HCPCS: 99024

== ENCOUNTER → 2023-06-16 10:24 | Outpatient (BNVA) | payer MEDICAID, SELFPAY | PROVIDERS: PCP Registered Nurse; Visit Provider Physician Assistant ==

== ENCOUNTER 2023-06-24 09:56 | Outpatient (RCR) | payer MEDICAID, SELFPAY ==
--- NOTE | 2023-06-24 16:00 | MHC.PT.EP ---
[facility] [place] Office [place] Office [place] Office [address] [phone] F: [phone] F: [phone] F: [phone] F: [phone] Physical Therapy Plan of Care Date of Evaluation: 06/24/23 Date of Surgery: 06/09/23 Diagnosis: S/P LEFT TKA (DR BHATTI) Assessment: 57 YO FEMALE REF TO PT S/P LEFT TKA ON 06/09/[address] BHATTI. SHE RESIDES ALONE IN A DUPLEX APT AND HER NIECE IS CURRENTLY STAYING WITH HER. SHE CURRENTLY AMB W A ROLLATOR. OBJECTIVE FINDINGS: PO ROM DEFICITS LEFT KNEE, TIGHT HIP FLEXORS/ CALF MM, (+) STRENGTH DEFICITS, AND PAIN IN LEFT KNEE. FUNCTIONALLY, THE Pt IS LIMITED BY DECR STANDING ELIZABETH, ALTERED GAIT MECHANICS, DIFFIC W STAIR MGMT, AND RESTRICTED WITH MORE PHYSICALLY DEMANDING ADLs. Pt WOULD BENEFIT FROM PT AT THIS TIME TO GUIDE HER IN HER POST-OP COURSE, DEV A PROGR HEP, ADDRESS PAIN MGMT, AND OBTAINING MAXIMAL LEVEL OF FUNCTIONAL INDEPENDENCE SHE RESIDES ALONE. Frequency and Duration: The patient will be seen 2 x 8 WKS Short Term Goals: *Pt DEMON Rt KNEE AROM 0* TO 120* *DECR Lt KNEE PAIN TO 2-3/10 *IMPROVE EFFICIENCY OF GAOIT MECH ON LEVEL GROUND AND STAIRS *IMPROVE Lt QUAD ACTIV Recovery Operator Goals: *Pt WILL IMPROVE LUMBOPELVIC/ Lt LE STRENGTH TO AT LEAST 5-/5 *Pt RESUME AT LEAST PLOF EVIDENT W IMPROVED LEFI SCORE (AT EVAL ) *Pt INDEP W PROGR HEP AND SELF-SX MGMT TECHN Treatment Plan: Modalities to reduce pain, spasms and effusion. Manual therapy to restore motion and function. Therapeutic exercise to improve strength and flexibility. Neuromuscular re-education for posture and balance. Therapeutic activities to return to functional activities of daily living. Electronically signed by: COLETTE VILLATORO,PT Please sign and return to therapist. Thank you for your referral.
--- NOTE | 2023-07-15 08:26 | MHC.PT.DC ---
[facility] [place] Office [place] Office [place] Office [address] [facility] [phone] F: [phone] F: [phone] F: [phone] F: [phone] Physical Therapy Discharge Report Diagnosis: S/P LEFT TKA (DR BHATTI) Date of Surgery: 06/09/23 Date of Evaluation: 06/24/23 Date of Discharge: 07/15/23 Treatments to Date: 1 Cancellations to Date: 0 No Shows to Date: 2 Discharge Status: Patient Elected to Stop Recommend MD Follow-up Visit Non-compliance Discharge Summary: 57 YO FEMALE REF TO PT S/P LEFT TKA ON 06/09/[address] BHATTI. THE Pt NO-SHOWED HER SCHED PT APPTS AND ATTEMPTS TO CONTACT THE Pt WERE UNSUCCESSFUL. Electronically signed by: COLETTE VILLATORO,PT Please sign and return to therapist. Thank you for your referral.
== END 2023-07-15 08:27 | disposition home or self-care (01) ==
LOC: HO.PT 09:56
PROVIDERS: PCP Registered Nurse; Visit Provider Physician Assistant
DX: Z96.652 Presence of left artificial knee joint (principal)
CPT/HCPCS: 97162

== ENCOUNTER 2023-06-24 14:10 | Outpatient (AMB) | payer MEDICAID, SELFPAY ==
--- NOTE | 2023-06-24 14:13 | MHC.OFFVIS ---
Intake Intake Visit Reasons: PO-LT TKA 06/09/23 NE Intake Note: Argelia presents today for her P/O visit for her left TKA from 06/09/23. States she is doing well. [place] removed and steri strips applied. Allergies cortisone [CORTISONE] Allergy (Intermediate, Verified 06/16/23 10:35) ELEVATES BLOOD SUGAR ibuprofen [IBUPROFEN] Allergy (Intermediate, Verified 06/16/23 10:35) GI UPSET, stomach upset mayonnaise [MAYONNAISE] Allergy (Mild, Verified 06/16/23 10:35) RASH naproxen [NAPROXEN] Adverse Reaction (Intermediate, Verified 06/16/23 10:35) STOMACH UPSET Vicodin Allergy (Unknown, Uncoded 06/16/23 10:35) palpitations,hypertension Cortisone Adverse Reaction (Unknown, Uncoded 06/16/23 10:35) hyperglycemia HPI PO-LT TKA 06/09/23 NE HPI Details 57-year-old female, who is Swazi speaking, presents in the office today 2 weeks status post left total knee arthroplasty, which was performed on 06/09/[address] Laureano. [facility] Medical History (Updated 06/11/23 @ 00:03 by Mani Castanon) Back pain Arthritis Anemia GERD (gastroesophageal reflux disease) History of headache Osteoarthritis of knees, bilateral Depression Asthma High cholesterol Hypothyroidism Type 2 diabetes mellitus Bilateral carpal tunnel syndrome Fibromyalgia Chronic diarrhea Drug induced constipation Surgical History History of total right knee replacement (TKR) Hx of bilateral cataract extraction History of esophagogastroduodenoscopy (EGD) H/O colonoscopy Hx of hand surgery History of cholecystectomy (~2011) S/p bilateral carpal tunnel release (~2003) Hx of laparoscopic adjustable gastric banding (~2009) History of removal of laparoscopic gastric banding device (~10/2012) H/O: hysterectomy (~10/2012) Family History Mother No problems noted. Father Cancer Sister Breast cancer Social History Household Members: Family Household Members Other:: sister Housing: House Are you a primary care services manager to a significant other at home: No Do you presently have visiting nurse or other home services: Yes (Daughter POSTAL SERVICE WINDOW CLERK) Alcohol intake: never Comment: COUNTS CORRECT Patient Tobacco Use Status: Current everyday Tobacco user Tobacco use type: Cigarette Cigarettes Per Day: 6 Years Smoked: 47 service: No Current occupational status: disabled Review of Systems Const All systems reviewed & are unremarkable except as noted in HPI and below Physical Exam Const General: cooperative, healthy appearing and no acute distress Resp Effort & Inspection: normal respiratory effort and able to speak in complete sentences Cardio Rate: regular rate Peripheral pulses: Peripheral pulses 2+ throughout GI Palpation (GI): Soft to palpation Skin Lesions: no lesions Rashes: no rashes Extrem Other: Left knee: Normal to inspection. No ecchymosis, erythema, or joint effusion. [place] intact. No signs of infection. ROM is 0-100 degrees. NVI. Assessment & Plan Assessment & Plan (1) Status post total knee replacement, left: Code(s): Z96.652 - Presence of left artificial knee joint Plan Ms. Oliver is a 57-year-old female, who is Swazi speaking, presents in the office today 2 weeks status post left total knee arthroplasty, which was performed on 06/09/[address] Laureano. [place] were removed and steri-stripes were applied while in the office today. The patient will transition to out patient physical therapy. Follow up will be in [address] Laureano, or sooner if needed. Medications: Changed From oxycodone Partial Fill upon patient request. 5 mg PO Q4H 7 days PRN 42 tabs 0RF Pain, Moderate(Pain Scale 4-6) To oxycodone Partial Fill upon patient request. 5 mg PO Q6H PRN 28 tabs 0RF Pain, Moderate(Pain Scale 4-6) 7 days Patient Instructions: Scribed for Yee Thompson PA-C by Kylie Laboy medical technician, on 06/24/2023 at 2:12 pm, EST. Coding Level of Care Code Global (30283) Diagnoses Status post total knee replacement, left Z96.652
== END 2023-06-24 14:36 | disposition home or self-care (01) ==
PROVIDERS: PCP Registered Nurse; Visit Provider Physician Assistant
DX: Z96.652 Presence of left artificial knee joint (principal)
CPT/HCPCS: 99024

== ENCOUNTER → 2023-06-24 14:10 | Outpatient (BNVA) | payer MEDICAID, SELFPAY | PROVIDERS: PCP Registered Nurse; Visit Provider Physician Assistant ==

== ENCOUNTER 2023-07-15 16:24 | Emergency (ER) | payer MEDICAID, SELFPAY ==
--- NOTE | ~2023-07-15 | XR_ITS ---
EXAMINATION: XR KNEE, LEFT CLINICAL INFORMATION: Postop pain and swelling COMPARISON: 06/09/2023 TECHNIQUE: Four views of the left knee. FINDINGS: There is a left total knee replacement with patellar resurfacing in anatomic alignment and position. There is no evidence of lucency at the interface between the prosthesis and bone. Soft tissue swelling is present consistent with recent surgery. No fracture or dislocation is evident. XR/XR knee LT 3V IMPRESSION: Left total knee replacement in anatomic alignment and position.
--- NOTE | ~2023-07-15 | US_ITS ---
EXAMINATION: US VENOUS ULTRASOUND WITH DOPPLER LOWER EXTREMITY, LEFT CLINICAL INFORMATION: Status post TKA. Rule out DVT. Pain. COMPARISON: None available. TECHNIQUE: Ultrasound of the deep veins is performed from the hip to the calf with compression sonography and color and pulse Doppler assessment. Spectral analysis with color-flow imaging is performed. FINDINGS: There is normal venous compression and respiratory variation and augmented flow. The visualized common femoral vein, superficial femoral vein, profunda femoral vein, popliteal vein, and the trifurcation region shows no evidence of deep venous thrombosis. There is no significant popliteal fossa cyst. If the patient's symptoms persist, followup ultrasound in 5 days 7 days might be of value to exclude proximal propagation from a non-visualized calf vein. US/US venous duplex LE LT IMPRESSION: No DVT demonstrated in the left lower extremity.
[2023-07-15 17:40] VITALS: BP 145/76; PULSE 77; RESP 18; TEMP 37; O2SAT 99; BMI 43.2
[2023-07-15 18:18] LABS: MANUAL DIFF FLAG NO
[2023-07-15 18:19] LABS: Basophils Percent Auto 0.8 % (0-2); Eosinophils Absolute Auto 0.1 X10*3/uL (0.0-0.4); Eosinophils Percent Auto 2.7 % (0-4); Hemoglobin 13.2 g/dl (12.0-16.0); Imm Gran Abs Auto 0.01 X10*3/uL (0.00-0.03); Imm Gran Pct Auto 0.2 % (0.0-0.4); Mean Corpuscular Hemoglobin 29.1 pg (27.0-33.0); Mean Corpuscular Volume 88.3 fL (80.0-98.0); Mean Platelet Volume 9.9 fL (9.4-12.3); Monocytes Absolute Auto 0.3 X10*3/uL (0.1-1.2); Monocytes Percent Auto 7.1 % (2-11); Neutrophils Absolute Auto 2.3 x10*3/uL (2.0-8.3); Neutrophils Percent Auto 48.2 % (45-73); Platelet Count 224 X10*3/uL (160-400); Red Blood Count 4.53 X10*6/uL (4.20-5.50); Red Cell Distribution Width 13.4 % (11.0-16.0); White Blood Count 4.8 X10*3/uL (4.8-10.8)
[2023-07-15 18:35] LABS: Alanine Aminotransferase 8 U/L (0-31); Albumin Level 3.9 g/dL (3.5-5.0); Alkaline Phosphatase 107 U/L (39-117); Anion Gap 11 (12-20); Aspartate Amino Transferase 11 U/L (5-31); Bilirubin Total 0.3 mg/dL (0.0-1.0); Blood Urea Nitrogen 11 mg/dL (9-16); Calcium 9.3 mg/dL (8.4-10.2); Carbon Dioxide 23 mmol/L (22-29); Chloride 110 mmol/L (96-108); Creatinine Clr Calc Pharmacy 67.1; Estimated Glomerular Filt Rate 59; Glucose Random 115 mg/dL (60-115); Potassium 3.3 mmol/L (3.3-5.1); Sodium 141 mmol/L (135-145); Total Protein 7.1 g/dL (6.5-8.0)
--- NOTE | 2023-07-15 20:02 | ED_ITS ---
HPI - Extremity Injury (Lower) General Chief Complaint: Extremity Injury, Lower Stated Complaint: lft knee pain Time Seen by Provider: 07/15/23 20:05 Source: patient, RN notes reviewed and old records reviewed Mode of arrival: ambulatory History of Present Illness HPI Narrative: 57-year-old Georgian-speaking female with a past medical history left total knee arthroplasty on 06/09/[address] Laureano presenting to the ED complaining of left knee increasing swelling/pain and erythema/warmth x 1 week. Denies injury/trauma or fall, fever/chills, calf pain Related Data Home Medications Medication Instructions Recorded Confirmed bupropion HCl 300 mg 24 hr tablet, 300 mg PO QAM 05/16/20 05/28/23 extended release (Wellbutrin XL) clonazepam 1 mg tablet (Klonopin) 0.5 mg PO BID 05/16/20 05/28/23 furosemide 20 mg tablet (Lasix) 20 mg PO DAILY 05/16/20 05/28/23 levothyroxine 150 mcg tablet 150 mcg PO MOTUWETHFRSA@0600 05/16/20 06/09/23 metformin 500 mg tablet 500 mg PO DAILY 05/16/20 05/28/23 montelukast 10 mg tablet 10 mg PO QPM 05/16/20 05/28/23 (Singulair) albuterol sulfate 90 mcg/actuation 2 puff inhalation Q4-6H PRN 11/05/22 05/28/23 aerosol inhaler (Proventil HFA) Shortness Of Breath Or Wheezing amlodipine 5 mg tablet 5 mg PO DAILY 11/05/22 05/28/23 canagliflozin 300 mg tablet 300 mg PO DAILY 11/05/22 05/28/23 (Invokana) dulaglutide 1.5 mg/0.5 mL 1.5 mg subcut QWEEK 11/05/22 05/28/23 subcutaneous pen injector (Trulicity) insulin glargine 100 unit/mL (3 30 unit subcut BEDTIME 11/05/22 05/28/23 mL) subcutaneous pen (Lantus Solostar U-100 Insulin) irbesartan 300 mg tablet 300 mg PO DAILY 11/05/22 05/28/23 lancets 33 gauge (TRUEplus Lancets) #100 ea 11/05/22 11/05/22 pen needle, diabetic 32 gauge x #50 ea 11/05/22 11/05/22/32 (Pentips) pravastatin 40 mg tablet 40 mg PO BEDTIME 11/05/22 05/28/23 lidocaine 5 % topical patch 1 patch topical DAILY PRN Pain 05/28/23 05/28/23 (Lidoderm) pantoprazole 20 mg tablet,delayed 20 mg PO QAM 05/28/23 05/28/23 release Previous Rx's Medication Instructions Recorded cyclobenzaprine 10 mg tablet 10 mg PO TID PRN muscle spasm #12 06/23/20 tabs gdgzmdhfcgkhw-BA-bmqdjjfevwh 5 10 ml PO Q4H PRN cough #118 mL 11/17/21 mg-10 mg-100 mg/5 mL oral liquid blood-glucose meter (FreeStyle #1 ea 11/05/22 Lite Meter kit) acetaminophen 325 mg tablet 650 mg (2 x 325 mg) PO Q6H PRN 06/10/23 Pain, Mild (Pain Scale 1-3) 30 days #240 tabs aspirin 325 mg tablet 325 mg PO Q12H 42 days #84 tabs 06/10/23 celecoxib 200 mg capsule 200 mg PO BID 30 days #60 caps 06/10/23 docusate sodium 100 mg capsule 100 mg PO BID 90 days #180 caps 06/10/23 oxycodone 5 mg tablet 5 mg PO DAILY PRN Pain, 07/13/23 Moderate(Pain Scale 4-6) 7 days #7 tabs Allergies Allergy/AdvReac Type Severity Reaction Status Date / Time cortisone [CORTISONE] Allergy Intermediate ELEVATES Verified 06/16/23 10:35 BLOOD SUGAR ibuprofen [IBUPROFEN] Allergy Intermediate GI UPSET, Verified 06/16/23 10:35 stomach upset mayonnaise [MAYONNAISE] Allergy Mild RASH Verified 06/16/23 10:35 naproxen [NAPROXEN] AdvReac Intermediate STOMACH Verified 06/16/23 10:35 UPSET Vicodin Allergy Unknown palpitation Uncoded 06/16/23 10:35 s,hypertens ion Cortisone AdvReac Unknown hyperglycem Uncoded 06/16/23 10:35 ia Review of Systems 2 Review of Systems: Constitutional: No Fever, No Chills ENT/Mouth: No Ear Pain, No Nasal Congestion, No sore throat, No Rhinorrhea, No Swallowing Difficulty Cardiovascular: No Chest Pain, No SOB Respiratory: No Cough Gastrointestinal: No Nausea, No Vomiting, No Diarrhea, No Constipation, No Abdominal pain Musculoskeletal: + joint pain, No Myalgias, + Joint Swelling Skin: No Skin Lesions, No rash Neuro: No Weakness, No Numbness, No Paresthesias Yes all other systems are reviewed and are negative Constitutional: Constitutional: Reports as per [facility] Past Medical History Attestation statement: The following information was validated with the patient. Source: old records reviewed Medical History Back pain Arthritis Anemia GERD (gastroesophageal reflux disease) History of headache Osteoarthritis of knees, bilateral Depression Asthma High cholesterol Hypothyroidism Type 2 diabetes mellitus Bilateral carpal tunnel syndrome Fibromyalgia Chronic diarrhea Drug induced constipation Surgical History History of total right knee replacement (TKR) Hx of bilateral cataract extraction History of esophagogastroduodenoscopy (EGD) H/O colonoscopy Hx of hand surgery History of cholecystectomy (~2011) S/p bilateral carpal tunnel release (~2003) Hx of laparoscopic adjustable gastric banding (~2009) History of removal of laparoscopic gastric banding device (~10/2012) H/O: hysterectomy (~10/2012) Family History Family History Mother No problems noted. Father Cancer Sister Breast cancer Social History Social History Household Members: Family Household Members Other:: sister Housing: House Are you a primary direct support professional caregiver to a significant other at home: No Do you presently have visiting nurse or other home services: Yes (Daughter RACQUET MAKER) Alcohol intake: never Comment: COUNTS CORRECT Patient Tobacco Use Status: Current everyday Tobacco user Tobacco use type: Cigarette Cigarettes Per Day: 6 Years Smoked: 47 Advance Directives: No Advance Directives Information Provided: No service: No Current occupational status: disabled Physical Exam 2 Vital Signs: Vital Signs: Last Vital Signs Temp 98.6 F 07/15/23 17:40 Pulse 77 07/15/23 17:40 Resp 18 07/15/23 17:40 BP 145/76 H 07/15/23 17:40 Pulse Ox 99 07/15/23 17:40 O2 Del Method Room Air 07/15/23 17:40 BMI result Body Mass Index 43.2 Const: General: cooperative, healthy appearing and no acute distress O rientation/consciousness: patient oriented x3 Limitations: no limitations HEENT: Head: Yes normal to inspection and Yes atraumatic Ears: hearing grossly normal bilaterally General nose exam: Normal external nose present Face and sinus: Yes normal facial exam Eyes: General: appearance normal, both eyes and all related structures EOM: EOMs intact bilaterally Neck: Neck: Yes normal visual inspection and Yes no meningeal signs Resp: Effort & Inspection: normal respiratory effort and no respiratory distress Cardio: Rate: regular rate Skin: Rashes: no rashes Wounds: no wounds Neuro: General: patient oriented x3, tone normal and no meningeal signs C ranial nerves: Yes CN's II-XII intact bilaterally Gait exam (Neuro): Normal gait present Extrem: Other: Left knee with appropriately healing surgical scar without erythema/warmth or tenderness. Minimal swelling appreciated. 1+ bilateral LE pitting edema. No calf tenderness. Full range of motion intact. Neurovascular intact distally. General: Yes normal to inspection Course Course Course Narrative: -Labs reassuring US venous duplex LE LT IMPRESSION: No DVT demonstrated in the left lower extremity. XR knee LT 3V IMPRESSION: Left total knee replacement in anatomic alignment and position. > DAVID wrap applied for comfort and stability/compression. Patient requesting additional pain medication. Patient filled 7 days of 5 mg Oxycodone yesterday 07/14/2023 per [facility] review, she states she only has 2 pills left. Discussed with patient she needs to follow up with Dr. Laureano for further pain management, as she should still have multiple days worth & is taking them incorrectly. -Results discussed with patient including worrisome signs and symptoms and strict return precautions, and when to return to the emergency department. They verbalized understanding and feel safe for discharge at this time. Medical Decision Making Medical Decision Making MDM Narrative: 57-year-old Georgian-speaking female with a past medical history left total knee arthroplasty on 06/09/[address] Laureano presenting to the ED complaining of left knee increasing swelling/pain and erythema/warmth x 1 week. On exam vital signs stable, NAD, nontoxic appearing, physical exam as noted above. Concern for in postsurgical DVT. No evidence of overt joint effusion. Unlikely fracture/dislocation. No evidence of septic joint/arthritis. Plan: Labs, x-ray, venous duplex ultrasound Please refer to course for remaining clinical decision making, interpretation of labs/imaging results, and discussions with consultants and/or family members. Differential Diagnosis Differential Diagnoses: The differential diagnosis associated with the presentation includes As above Admission/Observation Consideration of admission/observation: Escalation of care including admission/observation considered Lab Data MDM Lab Attestation statement: I reviewed the patient's lab results. 07/15/23 18:12 07/15/23 18:12 Labs: Lab Results 07/15/23 Range/Units 18:12 WBC 4.8 (4.8-10.8) X10*3/uL RBC 4.53 (4.20-5.50) X10*6/uL Hgb 13.2 (12.0-16.0) g/dl Hct 40.0 (37.0-47.0) % MCV 88.3 (80.0-98.0) fL MCH 29.1 (27.0-33.0) pg MCHC 33.0 (31.0-35.0) g/dl RDW 13.4 (11.0-16.0) % Plt Count 224 (160-400) X10*3/uL MPV 9.9 (9.4-12.3) fL Immature Gran % (Auto) 0.2 (0.0-0.4) % Neut % (Auto) 48.2 (45-73) % Lymph % (Auto) 41.0 H (20-40) % [place] % (Auto) 7.1 (2-11) % Eos % (Auto) 2.7 (0-4) % Baso % (Auto) 0.8 (0-2) % Lymph # (Auto) 2.0 (1.2-4.9) X10*3/uL [place] # (Auto) 0.3 (0.1-1.2) X10*3/uL Eos # (Auto) 0.1 (0.0-0.4) X10*3/uL Baso # (Auto) 0.0 (0.0-0.2) X10*3/uL Abs Immat Gran (auto) 0.01 (0.00-0.03) X10*3/uL Absolute Neuts (auto) 2.3 (2.0-8.3) x10*3/uL Absolute Nucleated RBC 0.000 (0.0-0.012) X10*3/uL Nucleated RBC % (auto) 0.0 (0.0-0.2) /100WBC Sodium 141 (135-145) mmol/L Potassium 3.3 (3.3-5.1) mmol/L Chloride 110 H (96-108) mmol/L Carbon Dioxide 23 (22-29) mmol/L Anion Gap 11 L (12-20) BUN 11 (9-16) mg/dL Creatinine 0.96 (0.5-1.4) mg/dL Estim Creat Clear Calc 67.1 Estimated GFR 59 Random Glucose 115 (60-115) mg/dL Calcium 9.3 D (8.4-10.2) mg/dL Total Bilirubin 0.3 (0.0-1.0) mg/dL AST 11 (5-31) U/L ALT 8 (0-31) U/L Alkaline Phosphatase 107 (39-117) U/L Total Protein 7.1 (6.5-8.0) g/dL Albumin 3.9 (3.5-5.0) g/dL Independent Interpretation I performed an independent interpretation of an: Ultrasound Radiology Impression Discussion of test interpretation with radiology: I have reviewed the radiologist's reading. External Record Review External record reviewed: Inpatient record, Office record, Outpatient record, Prior outpatient labs, Prior outpatient radiology, Primary care record and Outside ED record Tests considered The following testing was considered but not selected: As above Prescription Management I considered prescription management with: Pain Medication Chronic Conditions Patient?s care impacted by: Diabetes and Other Discharge Plan Discharge Clinical Impression: Left knee pain Patient Disposition: Home, Self-Care Instructions: Knee Pain (ED) Additional Instructions: Your x-ray, ultrasound and blood work are reassuring Wear David wrap for compression/stability and comfort Continue taking previously prescribed pain medication Follow-up with Dr. Laureano, call tomorrow to make an appointment If symptoms persist or worsen, pain becomes unbearable or area looks infected return to the ED Tus radiograf?as, ecograf?as y an?lisis de martin son tranquilizadores. Use David Wrap para compresi?n/estabilidad y comodidad. Contin?e tomando analg?sicos previamente recetados. Seguimiento con el Dr. Laureano, mar ma?jeannie para programar jerrica mansoor Si los s?ntomas persisten o empeoran, el dolor se vuelve insoportable o el ?keegan parece infectada, regrese al servicio de urgencias. Prescriptions: No Action oxycodone 5 mg tablet 5 mg PO DAILY PRN (Reason: Pain, Moderate(Pain Scale 4-6)) 7 Days Qty: 7 0RF Rx Instructions: Partial Fill upon patient request. cyclobenzaprine 10 mg tablet 10 mg PO TID PRN (Reason: muscle spasm) Qty: 12 0RF qlmodvmgpqqlx-SR-krheicemdon 5-10-100 mg/5 mL liquid 10 ml PO Q4H PRN (Reason: cough) Qty: 118 0RF lidocaine [Lidoderm] 5 % adhesive patch,medicated 1 patch topical DAILY PRN (Reason: Pain) Protocol: Apply to: Apply to: knees Rx Instructions: leave on most painful area for up to 12 hrs pantoprazole 20 mg tablet,delayed release (DR/EC) 20 mg PO QAM celecoxib 200 mg Capsule 200 mg PO BID 30 Days Qty: 60 0RF acetaminophen 325 mg Tablet 650 mg PO Q6H PRN (Reason: Pain, Mild (Pain Scale 1-3)) 30 Days Qty: 240 0RF aspirin 325 mg Tablet 325 mg PO Q12H 42 Days Qty: 84 0RF docusate sodium 100 mg capsule 100 mg PO BID 90 Days Qty: 180 0RF furosemide [Lasix] 20 mg tablet 20 mg PO DAILY bupropion HCl [Wellbutrin XL] 300 mg tablet extended release 24 hr 300 mg PO QAM clonazepam [Klonopin] 1 mg tablet 0.5 mg PO BID montelukast [Singulair] 10 mg tablet 10 mg PO QPM levothyroxine 150 mcg tablet 150 mcg PO MOTUWETHFRSA@0600 metformin 500 mg tablet 500 mg PO DAILY Invokana 300 mg tablet 300 mg PO DAILY insulin glargine [Lantus Solostar U-100 Insulin] 100 unit/mL (3 mL) insulin pen 30 unit subcut BEDTIME Patient Comments: only 1/2 dose yesterday Trulicity 1.5 mg/0.5 mL pen injector 1.5 mg subcut QWEEK Patient Comments: every albuterol sulfate [Proventil HFA] 90 mcg/actuation HFA aerosol inhaler 2 puff inhalation Q4-6H PRN (Reason: Shortness Of Breath Or Wheezing) (DME) pen needle, diabetic [Pentips] 32 gauge x 5/32 needle See Rx Instructions .ROUTE DIRECTED Qty: 50 Rx Instructions: As directed once a day (DME) lancets [TRUEplus Lancets] 33 gauge misc See Rx Instructions .ROUTE BID Qty: 100 Rx Instructions: As directed irbesartan 300 mg tablet 300 mg PO DAILY amlodipine 5 mg tablet 5 mg PO DAILY pravastatin 40 mg tablet 40 mg PO BEDTIME (DME) blood-glucose meter [FreeStyle Lite Meter] Kit See Rx Instructions .Route Qty: 1 0RF Rx Instructions: As directed checks 4 X/day Referrals: Harsha Laureano MD [Physician] - 2 days Print Language: Georgian
[2023-07-15 20:11] VITALS: PULSE 76; RESP 18; O2SAT 96
== END 2023-07-15 20:12 | disposition home or self-care (01) ==
PROVIDERS: Emergency Provider Emergency Medicine; PCP Registered Nurse
DX: M25.562 Pain in left knee (principal); R60.0 Localized edema; Z79.899 Other long term (current) drug therapy
CPT/HCPCS: 36415; 73562; 80053; 85025; 93971; 99282; 99284

== ENCOUNTER 2023-08-09 11:55 | Outpatient (AMB) | payer MEDICAID, SELFPAY ==
--- NOTE | 2023-08-08 13:45 | A.OFFVIS_ITS ---
Intake Intake Visit Reasons: PO - LT TKA 06/09/23 NE Intake Note: Argelia is a 57 year old female who presents today for a post operative appointment s/p Left TKA 06/09/23 Allergies cortisone [CORTISONE] Allergy (Intermediate, Verified 08/09/23 12:00) ELEVATES BLOOD SUGAR ibuprofen [IBUPROFEN] Allergy (Intermediate, Verified 08/09/23 12:00) GI UPSET, stomach upset mayonnaise [MAYONNAISE] Allergy (Mild, Verified 08/09/23 12:00) RASH naproxen [NAPROXEN] Adverse Reaction (Intermediate, Verified 08/09/23 12:00) STOMACH UPSET Vicodin Allergy (Unknown, Uncoded 08/09/23 12:00) palpitations,hypertension Cortisone Adverse Reaction (Unknown, Uncoded 08/09/23 12:00) hyperglycemia HPI PO - LT TKA 06/09/23 NE HPI Details 2 mo s/p left TKA. No complaints. She is doing well. Pain improving. [facility] Medical History Back pain Arthritis Anemia GERD (gastroesophageal reflux disease) History of headache Osteoarthritis of knees, bilateral Depression Asthma High cholesterol Hypothyroidism Type 2 diabetes mellitus Bilateral carpal tunnel syndrome Fibromyalgia Chronic diarrhea Drug induced constipation Surgical History History of total right knee replacement (TKR) Hx of bilateral cataract extraction History of esophagogastroduodenoscopy (EGD) H/O colonoscopy Hx of hand surgery History of cholecystectomy (~2011) S/p bilateral carpal tunnel release (~2003) Hx of laparoscopic adjustable gastric banding (~2009) History of removal of laparoscopic gastric banding device (~10/2012) H/O: hysterectomy (~10/2012) Family History Mother No problems noted. Father Cancer Sister Breast cancer Social History Household Members: Family Household Members Other:: sister Housing: House Are you a primary urgent care physician assistant to a significant other at home: No Do you presently have visiting nurse or other home services: Yes (Daughter SENIOR MAJOR GIFTS OFFICER) Alcohol intake: never Comment: COUNTS CORRECT Patient Tobacco Use Status: Current everyday Tobacco user Tobacco use type: Cigarette Cigarettes Per Day: 6 Years Smoked: 47 service: No Current occupational status: disabled Review of Systems Const All systems reviewed & are unremarkable except as noted in HPI and below Physical Exam Const General: no acute distress, alert and awake Orientation/consciousness: patient oriented x3 HEENT Head: Yes normocephalic and Yes atraumatic Eyes EOM: EOMs intact bilaterally Resp Effort & Inspection: normal respiratory effort and able to speak in complete sentences Cardio Jugular venous distension: no JVD Skin General skin exam: turgor normal Rashes: no rashes Neuro General: patient oriented x3 Extrem Other: inc c/d/i 0-13o deg motion walkign with minimal antalgia No effusion Psych Appearance: grossly normal Affect: normal affect Attitude: cooperative Assessment & Plan Assessment & Plan (1) Status post total knee replacement, left: Code(s): Z96.652 - Presence of left artificial knee joint Plan: Doing well 2 months post op F/u 6 weeks continue strengthening Coding Level of Care Code Global (36768) Diagnoses Status post total knee replacement, left Z96.652
== END 2023-08-09 12:31 | disposition home or self-care (01) ==
PROVIDERS: PCP Registered Nurse; Visit Provider Orthopaedic Surgery
DX: Z96.652 Presence of left artificial knee joint (principal)
CPT/HCPCS: 99024

== ENCOUNTER → 2023-08-09 11:55 | Outpatient (BNVA) | payer OTHER, SELFPAY | PROVIDERS: PCP Registered Nurse; Visit Provider Orthopaedic Surgery | DX: Z47.1 Aftercare following joint replacement surgery (principal); Z96.652 Presence of left artificial knee joint | CPT/HCPCS: 99212 ==

== ENCOUNTER 2023-08-23 11:00 | Outpatient (AMB) | payer MEDICAID, SELFPAY ==
[2023-08-23 11:06] VITALS: BMI 43.2
--- NOTE | 2023-08-23 11:06 | MHC.OFFVIS ---
Intake Vital Signs 08/23/23 11:06 Height 5 ft Weight 221 lb BMI 43.2 Intake Visit Reasons: P/O LT TKA 06/09/23 Intake Note: Argelia is a 57 year old female who presents today for a post operative appointment s/p Left TKA 06/09/23 Allergies cortisone [CORTISONE] Allergy (Intermediate, Verified 08/09/23 12:00) ELEVATES BLOOD SUGAR ibuprofen [IBUPROFEN] Allergy (Intermediate, Verified 08/09/23 12:00) GI UPSET, stomach upset mayonnaise [MAYONNAISE] Allergy (Mild, Verified 08/09/23 12:00) RASH naproxen [NAPROXEN] Adverse Reaction (Intermediate, Verified 08/09/23 12:00) STOMACH UPSET Vicodin Allergy (Unknown, Uncoded 08/09/23 12:00) palpitations,hypertension Cortisone Adverse Reaction (Unknown, Uncoded 08/09/23 12:00) hyperglycemia HPI P/O LT TKA 06/09/23 HPI Details Argelia is a 57 year old woman who presents ~10 weeks S/P left TKA. Her left knee is doing well but with left ankle pain Taking one oxycodone/day PFSH Medical History Back pain Arthritis Anemia GERD (gastroesophageal reflux disease) History of headache Osteoarthritis of knees, bilateral Depression Asthma High cholesterol Hypothyroidism Type 2 diabetes mellitus Bilateral carpal tunnel syndrome Fibromyalgia Chronic diarrhea Drug induced constipation Surgical History History of total right knee replacement (TKR) Hx of bilateral cataract extraction History of esophagogastroduodenoscopy (EGD) H/O colonoscopy Hx of hand surgery History of cholecystectomy (~2011) S/p bilateral carpal tunnel release (~2003) Hx of laparoscopic adjustable gastric banding (~2009) History of removal of laparoscopic gastric banding device (~10/2012) H/O: hysterectomy (~10/2012) Family History Mother No problems noted. Father Cancer Sister Breast cancer Social History Household Members: Family Household Members Other:: sister Housing: House Are you a primary intensive care specialist to a significant other at home: No Do you presently have visiting nurse or other home services: Yes (Daughter OUTBOUND TELEMARKETING REPRESENTATIVE) Alcohol intake: never Comment: COUNTS CORRECT Patient Tobacco Use Status: Current everyday Tobacco user Tobacco use type: Cigarette Cigarettes Per Day: 6 Years Smoked: 47 service: No Current occupational status: disabled Review of Systems Const All systems reviewed & are unremarkable except as noted in HPI and below Physical Exam Vital Signs: BMI result Body Mass Index 43.2 Const General: no acute distress, alert and awake Orientation/consciousness: patient oriented x3 HEENT Head: Yes normocephalic and Yes atraumatic Eyes EOM: EOMs intact bilaterally Resp Effort & Inspection: normal respiratory effort and able to speak in complete sentences Cardio Jugular venous distension: no JVD Skin General skin exam: turgor normal Rashes: no rashes Neuro General: patient oriented x3 Extrem Other: 0-130 deg left knee Inc c'd'i Left lateral plantar foot and peroneal ttp without sts Psych Appearance: grossly normal Affect: normal affect Attitude: cooperative Assessment & Plan Assessment & Plan (1) Status post total knee replacement, left: Code(s): Z96.652 - Presence of left artificial knee joint Plan: Doing well Oxydodone 1/day refilled- last rx (2) Peroneal tendonitis: Code(s): M76.70 - Peroneal tendinitis, unspecified leg Plan: Patient was given a boot for tendonitis Follow up 3 weeks Plan Prepared for Harsha Laureano MD by Jatinder Martin, medical and health services manager, on 08/23/23 at 11:09 AM, EST. Medications: Changed From oxycodone Partial Fill upon patient request. 5 mg PO DAILY 7 days PRN 7 tabs 0RF Pain, Moderate(Pain Scale 4-6) To oxycodone Partial Fill upon patient request. 5 mg PO DAILY 21 days PRN 21 tabs 0RF Pain, Moderate(Pain Scale 4-6) Refilled oxycodone Partial Fill upon patient request. 5 mg PO DAILY 21 days PRN 21 tabs 0RF Pain, Moderate(Pain Scale 4-6) Coding Level of Care Code Global (76002) Diagnoses Status post total knee replacement, left Z96.652 Peroneal tendonitis M76.70
== END 2023-08-23 11:44 | disposition home or self-care (01) ==
PROVIDERS: PCP Registered Nurse; Visit Provider Orthopaedic Surgery
DX: Z96.652 Presence of left artificial knee joint (principal); M76.70 Peroneal tendinitis, unspecified leg
CPT/HCPCS: 99024

== ENCOUNTER → 2023-08-23 11:00 | Outpatient (BNVA) | payer OTHER, SELFPAY | PROVIDERS: PCP Registered Nurse; Visit Provider Orthopaedic Surgery | DX: Z47.1 Aftercare following joint replacement surgery (principal); M76.70 Peroneal tendinitis, unspecified leg; Z96.652 Presence of left artificial knee joint | CPT/HCPCS: 99212 ==

== ENCOUNTER 2023-09-20 07:04 | Outpatient (REF) | payer MEDICAID, SELFPAY | END 2023-09-20 07:05 | disposition home or self-care (01) | LOC: HO.HOSX 07:04 | PROVIDERS: Visit Provider Orthopaedic Surgery | DX: Z13.89 Encounter for screening for other disorder (principal) ==

== ENCOUNTER 2023-10-01 10:02 | Outpatient (REF) | payer MEDICAID, SELFPAY | END 2023-10-01 10:03 | disposition home or self-care (01) | LOC: HO.HOSX 10:02 | PROVIDERS: Visit Provider Orthopaedic Surgery | DX: Z13.89 Encounter for screening for other disorder (principal) ==

== ENCOUNTER 2023-11-22 10:19 | Outpatient (AMB) | payer OTHER, SELFPAY ==
--- NOTE | 2023-11-22 10:22 | MHC.OFFVIS ---
Intake Visit Reasons: OV-LT TKA 06/09/23 NE/left ankle follow up Intake Note: Argelia is a 58 year old female who presents today for a follow up visit of her left knee s/p Left TKA 06/09/23 and Left peroneal tendonitis. She was given a boot at her last visit Patient reports that she is having continued pain of both her left ankle and left knee. Allergies cortisone [CORTISONE] Allergy (Intermediate, Verified 08/09/23 12:00) ELEVATES BLOOD SUGAR ibuprofen [IBUPROFEN] Allergy (Intermediate, Verified 08/09/23 12:00) GI UPSET, stomach upset mayonnaise [MAYONNAISE] Allergy (Mild, Verified 08/09/23 12:00) RASH naproxen [NAPROXEN] Adverse Reaction (Intermediate, Verified 08/09/23 12:00) STOMACH UPSET Vicodin Allergy (Unknown, Uncoded 08/09/23 12:00) palpitations,hypertension Cortisone Adverse Reaction (Unknown, Uncoded 08/09/23 12:00) hyperglycemia HPI HPI OV-LT TKA 06/09/23 NE/left ankle follow up: Details: Argelia is a 58 year old female who presents today for a follow up visit of her left knee s/p Left TKA 06/09/23 and Left peroneal tendonitis. She was given a boot at her last visit Patient reports that she is having continued pain of both her left ankle and left knee. [facility] Medical History Back pain Arthritis Anemia GERD (gastroesophageal reflux disease) History of headache Osteoarthritis of knees, bilateral Depression Asthma High cholesterol Hypothyroidism Type 2 diabetes mellitus Bilateral carpal tunnel syndrome Fibromyalgia Chronic diarrhea Drug induced constipation Surgical History History of total right knee replacement (TKR) Hx of bilateral cataract extraction History of esophagogastroduodenoscopy (EGD) H/O colonoscopy Hx of hand surgery History of cholecystectomy (~2011) S/p bilateral carpal tunnel release (~2003) Hx of laparoscopic adjustable gastric banding (~2009) History of removal of laparoscopic gastric banding device (~10/2012) H/O: hysterectomy (~10/2012) Family History Mother No problems noted. Father Cancer Sister Breast cancer Social History Household Members: Family Household Members Other:: sister Housing: House Are you a primary hospice patient care secretary to a significant other at home: No Do you presently have visiting nurse or other home services: Yes (Daughter PBX INSTALLER) Alcohol intake: never Comment: COUNTS CORRECT Patient Tobacco Use Status: Current everyday Tobacco user Tobacco use type: Cigarette Cigarettes Per Day: 6 Years Smoked: 47 service: No Current occupational status: disabled Physical Exam Extrem Other: inc c/d/i 0-130 deg motion left ankle with ttp over posterolateral ankle and peroneals without swelling Assessment & Plan Assessment & Plan (1) Status post total knee replacement, left: Code(s): Z96.652 - Presence of left artificial knee joint Category: Surgical Plan: Doing well Continue activity as tolerated and strengthening (2) Peroneal tendonitis: Code(s): M76.70 - Peroneal tendinitis, unspecified leg Category: Medical Plan: Objectively benign exam. I recommend PT No more narcotics Orders: Orders PT Evaluation and Treatment Today M76.70 - Peroneal tendinitis, unspecified leg, Z96.652 - Presence of left artificial knee joint Coding Level of Care Code Global (68854) Diagnoses Status post total knee replacement, left Z96.652 Peroneal tendonitis M76.70
== END 2023-11-22 13:25 | disposition home or self-care (01) ==
PROVIDERS: PCP Registered Nurse; Visit Provider Orthopaedic Surgery
DX: M76.70 Peroneal tendinitis, unspecified leg (principal); Z96.652 Presence of left artificial knee joint
CPT/HCPCS: 99213

== ENCOUNTER → 2023-11-22 10:19 | Outpatient (BNVA) | payer OTHER, SELFPAY | PROVIDERS: PCP Registered Nurse; Visit Provider Orthopaedic Surgery | DX: M25.562 Pain in left knee (principal); M25.572 Pain in left ankle and joints of left foot; M76.70 Peroneal tendinitis, unspecified leg; Z47.1 Aftercare following joint replacement surgery; Z96.652 Presence of left artificial knee joint | CPT/HCPCS: 99212 ==

== ENCOUNTER 2023-12-14 09:04 | Emergency (ER) | payer OTHER, SELFPAY ==
--- NOTE | ~2023-12-14 | US_ITS ---
EXAMINATION: US VENOUS ULTRASOUND WITH DOPPLER LOWER EXTREMITY, LEFT CLINICAL INFORMATION: Pain and swelling, left total knee replacement 06/09/2023 COMPARISON: Negative left lower extremity ultrasound from 07/15/2023. TECHNIQUE: Ultrasound of the deep veins is performed from the hip to the calf with compression sonography and color and pulse Doppler assessment. Spectral analysis with color-flow imaging is performed. FINDINGS: There is normal venous compression and respiratory variation and augmented flow although there is limited evaluation of the left popliteal vein due to patient's inability to tolerate full compression. The visualized common femoral vein, superficial femoral vein, profunda femoral vein, popliteal vein, and the trifurcation region shows no evidence of deep venous thrombosis. Contralateral common femoral vein is patent. There is no significant popliteal fossa cyst. Bilateral groin lymph nodes are seen, left measuring 2.1 x 0.6 x 1.2 cm and 1.0 x 0.4 x 0.7 cm. On the right, 3.1 x 0.9 x 1.4 cm lymph node identified with asymmetric cortical thickening. If the patient's symptoms persist, followup ultrasound in 5 days 7 days might be of value to exclude proximal propagation from a non-visualized calf vein. US/US venous duplex LE LT IMPRESSION: No DVT demonstrated in the left lower extremity. Bilateral groin lymph nodes as described, not previously documented. Advise clinical correlation.
[2023-12-14 09:10] VITALS: BP 149/62; PULSE 66; RESP 16; TEMP 37; O2SAT 98; BMI 38.2
--- NOTE | 2023-12-14 09:15 | ED_ITS ---
HPI - Extremity Problem General Chief complaint: Extremity Problem Stated complaint: L leg pain/DVT? Time Seen by Provider: 12/14/23 09:14 Source: patient Mode of arrival: ambulatory Limitations: no limitations History of Present Illness ED Provider: SRINIVAS HPI Narrative: 58 yo female with PMH of hypothyroidism, DM, obesity, asthma, HTN, DM, L TKR in past notes has had pain on and off since procedure has followed up with orthopedics and told it was normal. She notes past month more pain no trauma and feels bump behind knee. She denies rash, fevers or other swelling. Has talked to her orthopedics about the pain in the past but not this month. MD Complaint: joint swelling and joint pain Onset (ago): month(s) Pain Consistency: intermittent Location: left and knee Quality: aching Radiation: none Relieving factors: rest Exacerbating factors: walking Associated symptoms: denies other symptoms Context: other (hx of intermittent recurrent symptoms) Related Data Home Medications ?Medication ?Instructions ?Recorded ?Confirmed bupropion HCl 300 mg 24 hr tablet, 300 mg PO QAM 05/16/20 05/28/23 extended release (Wellbutrin XL) clonazepam 1 mg tablet (Klonopin) 0.5 mg PO BID 05/16/20 05/28/23 furosemide 20 mg tablet (Lasix) 20 mg PO DAILY 05/16/20 05/28/23 levothyroxine 150 mcg tablet 150 mcg PO MOTUWETHFRSA@0600 05/16/20 06/09/23 metformin 500 mg tablet 500 mg PO DAILY 05/16/20 05/28/23 montelukast 10 mg tablet 10 mg PO QPM 05/16/20 05/28/23 (Singulair) albuterol sulfate 90 mcg/actuation 2 puff inhalation Q4-6H PRN 11/05/22 05/28/23 aerosol inhaler (Proventil HFA) Shortness Of Breath Or Wheezing amlodipine 5 mg tablet 5 mg PO DAILY 11/05/22 05/28/23 canagliflozin 300 mg tablet 300 mg PO DAILY 11/05/22 05/28/23 (Invokana) dulaglutide 1.5 mg/0.5 mL 1.5 mg subcut QWEEK 11/05/22 05/28/23 subcutaneous pen injector (Trulicity) insulin glargine 100 unit/mL (3 30 unit subcut BEDTIME 11/05/22 05/28/23 mL) subcutaneous pen (Lantus Solostar U-100 Insulin) irbesartan 300 mg tablet 300 mg PO DAILY 11/05/22 05/28/23 lancets 33 gauge (TRUEplus Lancets) #100 ea 11/05/22 11/05/22 pen needle, diabetic 32 gauge x #50 ea 11/05/22 11/05/22/32 (Pentips) pravastatin 40 mg tablet 40 mg PO BEDTIME 11/05/22 05/28/23 lidocaine 5 % topical patch 1 patch topical DAILY PRN Pain 05/28/23 05/28/23 (Lidoderm) pantoprazole 20 mg tablet,delayed 20 mg PO QAM 05/28/23 05/28/23 release Previous Rx's ?Medication ?Instructions ?Recorded cyclobenzaprine 10 mg tablet 10 mg PO TID PRN muscle spasm #12 06/23/20 tabs wbyuxrcgdewtw-XN-hizyytjzwue 5 10 ml PO Q4H PRN cough #118 mL 11/17/21 mg-10 mg-100 mg/5 mL oral liquid acetaminophen 325 mg tablet 650 mg (2 x 325 mg) PO Q6H PRN 06/10/23 Pain, Mild (Pain Scale 1-3) 30 days #240 tabs aspirin 325 mg tablet 325 mg PO Q12H 42 days #84 tabs 06/10/23 celecoxib 200 mg capsule 200 mg PO BID 30 days #60 caps 06/10/23 docusate sodium 100 mg capsule 100 mg PO BID 90 days #180 caps 06/10/23 oxycodone 5 mg tablet 5 mg PO DAILY PRN Pain, 08/24/23 Moderate(Pain Scale 4-6) 21 days #21 tabs blood-glucose meter (FreeStyle #1 ea 11/18/23 Lite Meter kit) diclofenac sodium 1 % topical gel 2 g topical QID #100 grams 12/14/23 (Voltaren Arthritis Pain) tramadol 50 mg tablet 50 mg PO BID PRN pain #14 tabs 12/14/23 Allergies Allergy/AdvReac Type Severity Reaction Status Date / Time cortisone [CORTISONE] Allergy Intermediate ELEVATES Verified 12/14/23 09:12 BLOOD SUGAR ibuprofen [IBUPROFEN] Allergy Intermediate GI UPSET, Verified 12/14/23 09:12 stomach upset mayonnaise [MAYONNAISE] Allergy Mild RASH Verified 12/14/23 09:12 naproxen [NAPROXEN] AdvReac Intermediate STOMACH Verified 12/14/23 09:12 UPSET Vicodin Allergy Unknown palpitation Uncoded 08/09/23 12:00 s,hypertens ion Cortisone AdvReac Unknown hyperglycem Uncoded 08/09/23 12:00 ia Review of Systems Review of Systems: Constitutional : No Fever, No Chills ENT/Mouth : No Ear Pain, No Hoarseness, No sore throat Eyes: No Eye Pain, No Swelling, No Redness, No Foreign Body Cardiovascular : No Chest Pain, No SOB Respiratory : No Cough, No Dyspnea Gastrointestinal : No Nausea, No Vomiting, No Diarrhea, No abdominal Pain Genitourinary : No Dysuria, No Hematuria Musculoskeletal : positive joint pain, No Myalgias, pos Joint Swelling Skin : No Skin lacerations, No rash Neuro : No Weakness, No Numbness, No Loss of Consciousness, No Dizziness, No Headache All other systems reviewed and are negative COUNT INCLUDES THE [facility] Past Medical History Attestation statement: The following information was validated with the patient. Source: old records reviewed Medical History Back pain Arthritis Anemia GERD (gastroesophageal reflux disease) History of headache Osteoarthritis of knees, bilateral Depression Asthma High cholesterol Hypothyroidism Type 2 diabetes mellitus Bilateral carpal tunnel syndrome Fibromyalgia Chronic diarrhea Drug induced constipation Surgical History History of total right knee replacement (TKR) Hx of bilateral cataract extraction History of esophagogastroduodenoscopy (EGD) H/O colonoscopy Hx of hand surgery History of cholecystectomy (~2011) S/p bilateral carpal tunnel release (~2003) Hx of laparoscopic adjustable gastric banding (~2009) History of removal of laparoscopic gastric banding device (~10/2012) H/O: hysterectomy (~10/2012) Family History Family History Mother No problems noted. Father Cancer Sister Breast cancer Social History Social History Household Members: Family Household Members Other:: sister Housing: House Are you a primary patient care manager to a significant other at home: No Do you presently have visiting nurse or other home services: Yes (Daughter PROTECTIVE SIGNAL INSTALLER) Alcohol intake: never Comment: COUNTS CORRECT Patient Tobacco Use Status: Current everyday Tobacco user Tobacco use type: Cigarette Cigarettes Per Day: 6 Years Smoked: 47 Advance Directives: No Advance Directives Information Provided: Yes service: No Current occupational status: disabled Physical Exam Vital Signs: Vital Signs: Last Vital Signs Temp 96.4 F L 12/14/23 11:10 Pulse 63 12/14/23 11:10 Resp 14 12/14/23 11:10 BP 133/72 12/14/23 11:10 Pulse Ox 98 12/14/23 11:10 O2 Del Method Room Air 12/14/23 11:10 BMI result Body Mass Index 38.2 Appearance: Alert. Oriented X3. No acute distress. Eyes: Pupils equal, round and reactive to light. ENT: Pharynx normal. Neck: Normal inspection. Neck supple. CVS: Normal heart rate and rhythm. Pulses normal. Respiratory: No respiratory distress. Breath sounds normal. Abdomen: Soft and nontender. Skin: Skin warm and dry. Normal skin color. Normal skin turgor. Extremities: No lower extremity edema. L knee soft full area behind pop fossa - distal NV intact, no joint effusion no erythema no warmth to L knee Neuro: Oriented X 3. No motor deficit. No sensory deficit. Medical Decision Making Medical Decision Making MDM Narrative: 58 yo female with PMH of hypothyroidism, DM, obesity, asthma, HTN, DM, L TKR here with c/o recurrent L knee pain without signs of redness, warmth has fullness in L pop fossa could be bakers cyst. At this time US to rule DVT ordered, no trauma so xray not indicated has been here for similar pain post surgery. Differential Diagnosis Differential Diagnoses: The differential diagnosis associated with the presentation includes strain, bakers cyst, DVT less likely Independent Interpretation I performed an independent interpretation of an: Ultrasound (no DVT) Radiology Impression Discussion of test interpretation with radiology: I have reviewed the radiologist's reading. External Record Review External record reviewed: Inpatient record Prescription Management I considered prescription management with: Pain Medication and Other Discharge Plan Discharge Clinical Impression: Arthralgia of knee, left Patient Disposition: Home, Self-Care Instructions: Arthralgia (ED) Additional Instructions: return for fevers, redness, increased swelling. follow up with your orthopedic doctor no blood clot seen repeat groin check with primary care doctor swollen glands seen on US in both groins call for appointment in 1 week FINDINGS: There is normal venous compression and respiratory variation and augmented flow although there is limited evaluation of the left popliteal vein due to patient's inability to tolerate full compression. The visualized common femoral vein, superficial femoral vein, profunda femoral vein, popliteal vein, and the trifurcation region shows no evidence of deep venous thrombosis. Contralateral common femoral vein is patent. There is no significant popliteal fossa cyst. Bilateral groin lymph nodes are seen, left measuring 2.1 x 0.6 x 1.2 cm and 1.0 x 0.4 x 0.7 cm. On the right, 3.1 x 0.9 x 1.4 cm lymph node identified with asymmetric cortical thickening. If the patient's symptoms persist, followup ultrasound in 5 days 7 days might be of value to exclude proximal propagation from a non-visualized calf vein. US/US venous duplex LE LT IMPRESSION: No DVT demonstrated in the left lower extremity. Bilateral groin lymph nodes as described, not previously documented. Advise clinical correlation. Prescriptions: New diclofenac sodium [Voltaren Arthritis Pain] 1 % gel 2 g topical QID Qty: 100 0RF Rx Instructions: apply to single elbow, wrist or hand; for hand includes palm/fingers/back of hand tramadol 50 mg tablet 50 mg PO BID PRN (Reason: pain) Qty: 14 0RF No Action (DME) blood-glucose meter [FreeStyle Lite Meter] Kit See Rx Instructions .Route Qty: 1 0RF Rx Instructions: As directed checks 4 X/day cyclobenzaprine 10 mg tablet 10 mg PO TID PRN (Reason: muscle spasm) Qty: 12 0RF pgfeopwjfuoqm-PY-cpzxyjwtzxe 5-10-100 mg/5 mL liquid 10 ml PO Q4H PRN (Reason: cough) Qty: 118 0RF lidocaine [Lidoderm] 5 % adhesive patch,medicated 1 patch topical DAILY PRN (Reason: Pain) Protocol: Apply to: Apply to: knees Rx Instructions: leave on most painful area for up to 12 hrs pantoprazole 20 mg tablet,delayed release (DR/EC) 20 mg PO QAM celecoxib 200 mg Capsule 200 mg PO BID 30 Days Qty: 60 0RF acetaminophen 325 mg Tablet 650 mg PO Q6H PRN (Reason: Pain, Mild (Pain Scale 1-3)) 30 Days Qty: 240 0RF aspirin 325 mg Tablet 325 mg PO Q12H 42 Days Qty: 84 0RF docusate sodium 100 mg capsule 100 mg PO BID 90 Days Qty: 180 0RF furosemide [Lasix] 20 mg tablet 20 mg PO DAILY bupropion HCl [Wellbutrin XL] 300 mg tablet extended release 24 hr 300 mg PO QAM clonazepam [Klonopin] 1 mg tablet 0.5 mg PO BID montelukast [Singulair] 10 mg tablet 10 mg PO QPM levothyroxine 150 mcg tablet 150 mcg PO MOTUWETHFRSA@0600 metformin 500 mg tablet 500 mg PO DAILY Invokana 300 mg tablet 300 mg PO DAILY insulin glargine [Lantus Solostar U-100 Insulin] 100 unit/mL (3 mL) insulin pen 30 unit subcut BEDTIME Patient Comments: only 1/2 dose yesterday Trulicity 1.5 mg/0.5 mL pen injector 1.5 mg subcut QWEEK Patient Comments: every albuterol sulfate [Proventil HFA] 90 mcg/actuation HFA aerosol inhaler 2 puff inhalation Q4-6H PRN (Reason: Shortness Of Breath Or Wheezing) (DME) pen needle, diabetic [Pentips] 32 gauge x 5/32 needle See Rx Instructions .ROUTE DIRECTED Qty: 50 Rx Instructions: As directed once a day (DME) lancets [TRUEplus Lancets] 33 gauge misc See Rx Instructions .ROUTE BID Qty: 100 Rx Instructions: As directed irbesartan 300 mg tablet 300 mg PO DAILY amlodipine 5 mg tablet 5 mg PO DAILY pravastatin 40 mg tablet 40 mg PO BEDTIME oxycodone 5 mg tablet 5 mg PO DAILY PRN (Reason: Pain, Moderate(Pain Scale 4-6)) 21 Days Qty: 21 0RF Rx Instructions: Partial Fill upon patient request. Print Language: Italian
[2023-12-14 11:10] VITALS: BP 133/72; PULSE 63; RESP 14; TEMP 35.8; O2SAT 98
[2023-12-14 11:24] VITALS: BP 133/72; PULSE 63; RESP 18; TEMP 35.8; O2SAT 98
== END 2023-12-14 11:24 | disposition home or self-care (01) ==
PROVIDERS: Emergency Provider Emergency Medicine; PCP Nurse Practitioner Family
DX: M25.562 Pain in left knee (principal); R22.42 Localized swelling, mass and lump, left lower limb; I10 Essential (primary) hypertension; E11.9 Type 2 diabetes mellitus without complications; Z96.652 Presence of left artificial knee joint
CPT/HCPCS: 93971; 99283; 99284

== ENCOUNTER 2023-12-24 10:42 | Outpatient (AMB) | payer OTHER, SELFPAY ==
--- NOTE | 2023-12-24 11:18 | A.OFFVIS_ITS ---
Vital Signs 12/24/23 11:19 Height 5 ft 1 in Weight 202 lb BMI 38.2 Intake Visit Reasons: OV-LT TKA 06/09/23 NE Intake Note: Argelia is a 58 year old female who presents today for a follow up visit of her left knee s/p Left TKA 06/09/23 and Left peroneal tendonitis. At he last visit she was discontinued from narcotics and was instructed to discontinue the boot. Allergies cortisone [CORTISONE] Allergy (Intermediate, Verified 12/24/23 11:19) ELEVATES BLOOD SUGAR ibuprofen [IBUPROFEN] Allergy (Intermediate, Verified 12/24/23 11:19) GI UPSET, stomach upset mayonnaise [MAYONNAISE] Allergy (Mild, Verified 12/24/23 11:19) RASH naproxen [NAPROXEN] Adverse Reaction (Intermediate, Verified 12/24/23 11:19) STOMACH UPSET Vicodin Allergy (Unknown, Uncoded 12/24/23 11:19) palpitations,hypertension Cortisone Adverse Reaction (Unknown, Uncoded 12/24/23 11:19) hyperglycemia HPI HPI OV-LT TKA 06/09/23 NE: Details: Left knee pain posteriorly and complaints of difficulty with stairs. Denies fever/chills. Is having some difficulty with her landlord and wants to move out of building. She lost her cane. [facility] Medical History Back pain Arthritis Anemia GERD (gastroesophageal reflux disease) History of headache Osteoarthritis of knees, bilateral Depression Asthma High cholesterol Hypothyroidism Type 2 diabetes mellitus Bilateral carpal tunnel syndrome Fibromyalgia Chronic diarrhea Drug induced constipation Surgical History History of total right knee replacement (TKR) Hx of bilateral cataract extraction History of esophagogastroduodenoscopy (EGD) H/O colonoscopy Hx of hand surgery History of cholecystectomy (~2011) S/p bilateral carpal tunnel release (~2003) Hx of laparoscopic adjustable gastric banding (~2009) History of removal of laparoscopic gastric banding device (~10/2012) H/O: hysterectomy (~10/2012) Family History Mother No problems noted. Father Cancer Sister Breast cancer Social History Household Members: Family Household Members Other:: sister Housing: House Are you a primary medicare insurance specialist to a significant other at home: No Do you presently have visiting nurse or other home services: Yes (Daughter [employer]IN[employer] WORKER) Alcohol intake: never Comment: COUNTS CORRECT Patient Tobacco Use Status: Current everyday Tobacco user Tobacco use type: Cigarette Cigarettes Per Day: 6 Years Smoked: 47 service: No Current occupational status: disabled Physical Exam Vital Signs: BMI result Body Mass Index 38.2 Extrem Other: inc c/d/i 0-130 deg motion left ankle with ttp over posterolateral ankle and peroneals without swelling Assessment & Plan Assessment & Plan (1) Status post total knee replacement, left: Code(s): Z96.652 - Presence of left artificial knee joint Category: Surgical Plan: Nl left knee exam with no evidence of complication Rx for cane written F.u 6 months Activity as tolerated Medications: New [cane] As directed 1 ea 0RF left knee pain Coding Level of Care Code Est Pt Level 3 (38731) Diagnoses Status post total knee replacement, left Z96.652
[2023-12-24 11:19] VITALS: BMI 38.2
== END 2023-12-24 11:46 | disposition home or self-care (01) ==
PROVIDERS: PCP Registered Nurse; Visit Provider Orthopaedic Surgery
DX: Z47.89 Encounter for other orthopedic aftercare (principal); Z96.652 Presence of left artificial knee joint
CPT/HCPCS: 99212

== ENCOUNTER → 2023-12-24 10:42 | Outpatient (BNVA) | payer MEDICAID, SELFPAY | PROVIDERS: PCP Registered Nurse; Visit Provider Orthopaedic Surgery | DX: Z96.652 Presence of left artificial knee joint (principal) | CPT/HCPCS: 99212 ==

== ENCOUNTER 2024-03-09 11:36 | Outpatient (REF) | payer MEDICAID, SELFPAY ==
--- NOTE | ~2024-03-09 | XR_ITS ---
EXAMINATION: XR KNEE, LEFT CLINICAL INFORMATION: Pain. COMPARISON: 07/15/2023. TECHNIQUE: Three views of the left knee. FINDINGS: Status post left total knee arthroplasty. There appears to be increased demineralization along the subjacent proximal tibia, particularly subjacent to the medial flange of the prosthesis with possible slight medial settling. Large joint effusion. Slight lucency subjacent to the femoral component. XR/XR knee LT 3V IMPRESSION: Status post left total knee arthroplasty. There appears to be increased demineralization along the subjacent proximal tibia, particularly subjacent to the medial flange of the prosthesis with possible slight medial settling. Large joint effusion. Slight lucency subjacent to the femoral component. Correlation with clinical exam and possible CT scan or MRI recommended. Electronically signed by: Rebeka Multani MD 04/05/2024 10:38 AM EDT
== END 2024-03-09 11:37 | disposition home or self-care (01) ==
LOC: HO.XRAY 11:36
PROVIDERS: Absent Provider Orthopaedic Surgery; PCP Registered Nurse; Visit Provider Nurse Practitioner Family
DX: Z96.652 Presence of left artificial knee joint (principal)
CPT/HCPCS: 73562; 99212

== ENCOUNTER 2024-03-09 11:36 | Outpatient (AMB) | payer MEDICAID, SELFPAY ==
--- NOTE | 2024-03-09 11:40 | MHC.OFFVIS ---
Vital Signs 03/09/24 11:52 Height 5 ft 1 in Weight 200 lb BMI 37.8 BP 132/78 Blood Pressure Location Rt brachial Position Sitting Pulse 72 Pulse Source Pulse Oximeter Pulse Oximetry (%) 96 Oxygen Delivery Method Room Air Intake Visit Reasons: Presence of left artificial knee joint Intake Note: Pain today 04/04 Motor And Chassis Inspector Required: Yes Motor And Chassis Inspector Language: Citizen [place] Allergies cortisone [CORTISONE] Allergy (Intermediate, Verified 03/09/24 11:53) ELEVATES BLOOD SUGAR ibuprofen [IBUPROFEN] Allergy (Intermediate, Verified 03/09/24 11:53) GI UPSET, stomach upset mayonnaise [MAYONNAISE] Allergy (Mild, Verified 03/09/24 11:53) RASH naproxen [NAPROXEN] Adverse Reaction (Intermediate, Verified 03/09/24 11:53) STOMACH UPSET Vicodin Allergy (Unknown, Uncoded 12/24/23 11:19) palpitations,hypertension Cortisone Adverse Reaction (Unknown, Uncoded 12/24/23 11:19) hyperglycemia HPI HPI Presence of left artificial knee joint: Details: Patient is a pleasant 58-year-old Citizen [place]-speaking female with a past medical history left total knee arthroplasty on 06/09/[address] Laureano presents today for initial evaluation of persistent left knee pain. Denies any recent trauma, injury, or falls. Patient reports global anterior knee pain and posterior knee swelling. She was last seen by Orthopedics in November 2023 was told normal left knee exam and was prescribed a cane. Patient was also seen at [facility] ER for this issue, last visit in November 2023 and was noted to have swollen glands seen on US in both groins and reports she has upcoming follow up with her PCP regarding this. Patient completed partial physical therapy at [facility] Core PT but could not complete it due to significant exacerbation of pain. Pain is constant and most severe during the day which she rates at 9-10/10. Pain interferes with her ADLs, mobility, mood, sleep and social interactions. She avoids NSAIDs due to GI upset. Patient states oxycodone has been the most effective in relieving her pain. Denies any fever, chills, abdominal or groin pain, weakness, lumbar radicular pain, bladder or bowel dysfunction or saddle anesthesia. Location: Left knee, anterior and posterior Duration: Chronic pain > 6 months, s/p left TKA 06/09/23 Characteristics of symptom or complaint: stabbing feels like a lump behind knee, incision: numbness/tingling Aggravating or associated factors: Sleeping, walking, climbing stairs, movements, ADLs Relieving factors: Oxycodone, has tried lidocaine patches and OTC topical creams/gels Treatment: Attempted PT--increased pain, ER visits, Ortho re-evals, xrays, [facility] Medical History Back pain Arthritis Anemia GERD (gastroesophageal reflux disease) History of headache Osteoarthritis of knees, bilateral Depression Asthma High cholesterol Hypothyroidism Type 2 diabetes mellitus Bilateral carpal tunnel syndrome Fibromyalgia Chronic diarrhea Drug induced constipation Surgical History History of total right knee replacement (TKR) Hx of bilateral cataract extraction History of esophagogastroduodenoscopy (EGD) H/O colonoscopy Hx of hand surgery History of cholecystectomy (~2011) S/p bilateral carpal tunnel release (~2003) Hx of laparoscopic adjustable gastric banding (~2009) History of removal of laparoscopic gastric banding device (~10/2012) H/O: hysterectomy (~10/2012) Family History Mother No problems noted. Father Cancer Sister Breast cancer Social History Household Members: Family Household Members Other:: sister Housing: House Are you a primary school childcare attendant to a significant other at home: No Do you presently have visiting nurse or other home services: Yes (Daughter INSTRUCTOR DECORATING) Alcohol intake: never Comment: COUNTS CORRECT Patient Tobacco Use Status: Current everyday Tobacco user Tobacco use type: Cigarette Cigarettes Per Day: 6 Years Smoked: 47 service: No Current occupational status: disabled Review of Systems Const All systems reviewed & are unremarkable except as noted in HPI and below Physical Exam Vital Signs: Last Vital Signs Pulse 72 03/09/24 11:52 BP 132/78 03/09/24 11:52 Pulse Ox 96 03/09/24 11:52 Oxygen Delivery Method Room Air 03/09/24 11:52 BMI result Body Mass Index 37.8 General: Appears afebrile. Alert and oriented. Mood and affect appropriate. Follows and participates in conversation appropriately. Respiratory effort is unlabored. No cough. No nasal discharge. Able to transition from sit to stand unassisted. Ambulates with bilaterally normal heel strike and toe off. Extrem General: Yes capillary refill normal, Yes no clubbing, cyanosis or edema and Yes no calf tenderness Left lower extremity: knee (Slightly limited ROM. Well healed incision. +paresthesias to incision line) Details: normal to inspection, tenderness Location: of the popliteal fossa and of the lateral joint line and swelling Location: of the popliteal fossa; no ecchymosis, no deformity and no unusual warmth Results Reviewed Results Reviewed: XR KNEE, LEFT 07/15/23 CLINICAL INFORMATION: Postop pain and swelling COMPARISON: 06/09/2023 TECHNIQUE: Four views of the left knee. FINDINGS: There is a left total knee replacement with patellar resurfacing in anatomic alignment and position. There is no evidence of lucency at the interface between the prosthesis and bone. Soft tissue swelling is present consistent with recent surgery. No fracture or dislocation is evident. IMPRESSION: Left total knee replacement in anatomic alignment and position. US VENOUS ULTRASOUND WITH DOPPLER LOWER EXTREMITY, LEFT 12/14/23 CLINICAL INFORMATION: Pain and swelling, left total knee replacement 06/09/2023 COMPARISON: Negative left lower extremity ultrasound from 07/15/2023. TECHNIQUE: Ultrasound of the deep veins is performed from the hip to the calf with compression sonography and color and pulse Doppler assessment. Spectral analysis with color-flow imaging is performed. FINDINGS: There is normal venous compression and respiratory variation and augmented flow although there is limited evaluation of the left popliteal vein due to patient's inability to tolerate full compression. The visualized common femoral vein, superficial femoral vein, profunda femoral vein, popliteal vein, and the trifurcation region shows no evidence of deep venous thrombosis. Contralateral common femoral vein is patent. There is no significant popliteal fossa cyst. Bilateral groin lymph nodes are seen, left measuring 2.1 x 0.6 x 1.2 cm and 1.0 x 0.4 x 0.7 cm. On the right, 3.1 x 0.9 x 1.4 cm lymph node identified with asymmetric cortical thickening. If the patient's symptoms persist, followup ultrasound in 5 days 7 days might be of value to exclude proximal propagation from a non-visualized calf vein. IMPRESSION: No DVT demonstrated in the left lower extremity. Bilateral groin lymph nodes as described, not previously documented. Advise clinical correlation. Assessment & Plan Assessment & Plan (1) Chronic knee pain after total replacement of left knee joint: Code(s): M25.562 - Pain in left knee; G89.29 - Other chronic pain; Z96.652 - Presence of left artificial knee joint Category: Medical (2) Obesity, Class II, BMI 35-39.9: Code(s): E66.9 - Obesity, unspecified Category: Medical Plan Left knee x-ray to assess for hardware status and assess for any effusion vs Enriquez's cyst. Discussed interventional treatments for persistent left knee pain status post left TKA in 2022, including temporary peripheral nerve stimulation with Sprint trial versus genicular RFA. Patient would like to review of procedures with her family that she is leaning towards Sprint PNS therapy. She will notify our office is her decision and proceed with diagnostic nerve blocks based on her decision. Expectations, risks and benefits were reviewed with patient for diagnostic femoral nerve blocks and diagnostic genicular nerve blocks. Informational pamphlets were provided to patient in [place] today. All questions were answered and the patient is in agreement of plan. Follow-up for xray results and sooner as needed. Orders: Orders XR knee LT 3V Today M25.562 - Pain in left knee, Z96.652 - Presence of left artificial knee joint Coding Level of Care Code New Pt Level 4 (57996) Diagnoses Chronic knee pain after total replacement of left knee joint M25.562; G89.29; Z96.652 Obesity, Class II, BMI 35-39.9 E66.9
[2024-03-09 11:52] VITALS: BP 132/78; PULSE 72; O2SAT 96; BMI 37.8
== END 2024-03-09 12:10 | disposition home or self-care (01) ==
PROVIDERS: PCP Registered Nurse; Visit Provider Nurse Practitioner Family
DX: M25.562 Pain in left knee (principal); G89.29 Other chronic pain; Z96.652 Presence of left artificial knee joint; E66.9 Obesity, unspecified
CPT/HCPCS: 99204

== ENCOUNTER 2024-04-14 09:44 | Outpatient (AMB) | payer MEDICAID, SELFPAY ==
--- NOTE | 2024-04-14 09:45 | A.OFFVIS_ITS ---
Intake Visit Reasons: OV-LT TKA 06/09/23 NE Intake Note: Argelia is a 58 year old female who presents today for a follow up of her left knee s/p Left TKA 06/09/23. Patient met with Pain management for her continued left knee pain, they discussed Sprint trial versus genicular RFA. Allergies cortisone [CORTISONE] Allergy (Intermediate, Verified 04/14/24 09:45) ELEVATES BLOOD SUGAR ibuprofen [IBUPROFEN] Allergy (Intermediate, Verified 04/14/24 09:45) GI UPSET, stomach upset mayonnaise [MAYONNAISE] Allergy (Mild, Verified 04/14/24 09:45) RASH naproxen [NAPROXEN] Adverse Reaction (Intermediate, Verified 04/14/24 09:45) STOMACH UPSET Vicodin Allergy (Unknown, Uncoded 04/14/24 09:45) palpitations,hypertension Cortisone Adverse Reaction (Unknown, Uncoded 04/14/24 09:45) hyperglycemia HPI HPI OV-LT TKA 06/09/23 NE: Details: Argelia is a 58 year old female who presents today for a follow up of her left knee s/p Left TKA 06/09/23. Patient met with Pain management for her continued left knee pain, they discussed Sprint trial versus genicular RFA. She had describes worsening left knee pain since she fell out of her bathtub about 2-3 months ago. Since then she has been unable to ambulate and localizes pain to the medial aspect of her left knee. She does notice that her knee appears to be in more varus than it was prior. She has difficulty ambulating. [facility] Medical History Back pain Arthritis Anemia GERD (gastroesophageal reflux disease) History of headache Osteoarthritis of knees, bilateral Depression Asthma High cholesterol Hypothyroidism Type 2 diabetes mellitus Bilateral carpal tunnel syndrome Fibromyalgia Chronic diarrhea Drug induced constipation Surgical History History of total right knee replacement (TKR) Hx of bilateral cataract extraction History of esophagogastroduodenoscopy (EGD) H/O colonoscopy Hx of hand surgery History of cholecystectomy (~2011) S/p bilateral carpal tunnel release (~2003) Hx of laparoscopic adjustable gastric banding (~2009) History of removal of laparoscopic gastric banding device (~10/2012) H/O: hysterectomy (~10/2012) Family History Mother No problems noted. Father Cancer Sister Breast cancer Social History Household Members: Family Household Members Other:: sister Housing: House Are you a primary intensive care unit registered nurse to a significant other at home: No Do you presently have visiting nurse or other home services: Yes (Daughter UI PROGRAMMER) Alcohol intake: never Comment: COUNTS CORRECT Patient Tobacco Use Status: Current everyday Tobacco user Tobacco use type: Cigarette Cigarettes Per Day: 6 Years Smoked: 47 service: No Current occupational status: disabled Physical Exam Extrem Other: There is left knee varus that was not present previously with tenderness to palpation that is sharp over the medial tibial plateau. The incision is clean dry and intact and there is no effusion. Her MCL is stable. Results Reviewed Results Reviewed: Imaging shows increased T mineralization along the medial proximal tibia with a joint effusion Assessment & Plan Assessment & Plan (1) Status post total knee replacement, left: Code(s): Z96.652 - Presence of left artificial knee joint Category: Surgical Plan: This is a 58-year-old who is approximately 1 year status post left knee replacement. She states she was doing well until about 2 months ago when she fell awkwardly and has been unable to recover and feels that she is getting worse with changes in her alignment. Imaging is suggestive of loosening versus infection. I ordered an ESR and a CRP and a CT scan. I think she will require revision surgery but I need to rule out infection 1st. I will reach out to her once her labs are complete and her CT is done and schedule her as soon as possible. I discussed this with her. She expressed understanding. II reviewed the options including 2 stage revision for infection versus 1 stage for loosening. On a more after the labs and the CT scan. Orders: Orders Erythrocyte Sedimentation Rate Today Z96.652 - Presence of left artificial knee joint CT knee LT wo IV con Today Z96.652 - Presence of left artificial knee joint C Reactive Protein Today Z96.652 - Presence of left artificial knee joint Coding Level of Care Code Est Pt Level 4 (51530) Diagnoses Status post total knee replacement, left Z96.652
== END 2024-04-14 10:22 | disposition home or self-care (01) ==
PROVIDERS: PCP Registered Nurse; Referring Provider Registered Nurse; Visit Provider Orthopaedic Surgery
DX: M25.562 Pain in left knee (principal); Z96.652 Presence of left artificial knee joint
CPT/HCPCS: 99214

== ENCOUNTER → 2024-04-14 09:44 | Outpatient (BNVA) | payer MEDICAID, SELFPAY | PROVIDERS: PCP Registered Nurse; Visit Provider Orthopaedic Surgery | DX: Z96.652 Presence of left artificial knee joint (principal) | CPT/HCPCS: 99212 ==

== ENCOUNTER 2024-04-18 12:29 | Outpatient (REF) | payer MEDICAID, SELFPAY ==
--- NOTE | ~2024-04-18 | XR_ITS ---
EXAMINATION: XR PELVIS CLINICAL INFORMATION: M25.559 - Pain in unspecified hip COMPARISON: X-ray dated February 23, 2020 TECHNIQUE: AP view of the pelvis. FINDINGS: Submitted for interpretation on June 26, 2024. Bony pelvis is intact. Spina bifida occulta S1, congenital. No acute cortical disruption in either hip. XR/XR pelvis 1-2V IMPRESSION: No acute fracture, pelvis. Electronically signed by: Stephan Nunez MD 06/26/2024 10:21 AM [facility]
--- NOTE | ~2024-04-18 | XR_ITS ---
EXAMINATION: XR KNEE, LEFT CLINICAL INFORMATION: M25.569 - Pain in unspecified knee COMPARISON: March 09, 2024. TECHNIQUE: Lateral and sunrise views of the left knee. FINDINGS: There is a metallic prosthesis with a femoral and tibial component well-seated in the osseous structures. There is a metallic prosthesis in the posterior patella. No acute cortical disruption or malalignment. No loosening. XR/XR knee LT 3V IMPRESSION: Arthroplasty prosthesis without acute fracture or dislocation. Electronically signed by: Stephan Nunez MD 06/26/2024 10:35 AM CHAPARRITA ÁLVAREZ
--- NOTE | ~2024-04-18 | XR_ITS ---
EXAMINATION: XR KNEE, RIGHT CLINICAL INFORMATION: M25.569 - Pain in unspecified knee COMPARISON: March 09, 2024. TECHNIQUE: Four views of the right knee. FINDINGS: Submitted for interpretation on June 26, 2024. There is a medial femoral and tibial component prosthesis without acute cortical disruption or malalignment or loosening. XR/XR knee RT 3V IMPRESSION: Medial compartmental prosthesis without acute fracture or dislocation. Electronically signed by: Stephan Nunez MD 06/26/2024 10:39 AM CHAPARRITA ÁLVAREZ
[2024-04-18 14:26] LABS: Erythrocyte Sedimentation Rate 21 MM/HR (0-20)
[2024-04-18 16:27] LABS: Estimated Average Glucose 114 mg/dL; Hemoglobin A1c % 5.6 % (<6.0)
== END 2024-04-18 12:30 | disposition home or self-care (01) ==
LOC: HO.LAB 12:29
PROVIDERS: PCP Registered Nurse; Visit Provider Orthopaedic Surgery
DX: M25.559 Pain in unspecified hip (principal); Z96.652 Presence of left artificial knee joint; Z01.812 Encounter for preprocedural laboratory examination
CPT/HCPCS: 36415; 72170; 73562; 83036; 85652; 86140

== ENCOUNTER → 2024-04-18 12:55 | Outpatient (BNV) | payer MEDICAID, SELFPAY | PROVIDERS: PCP Registered Nurse; Visit Provider Radiology Diagnostic Radiology | DX: M25.561 Pain in right knee (principal); M25.562 Pain in left knee; M25.559 Pain in unspecified hip | CPT/HCPCS: 72170; 73562 ==

== ENCOUNTER 2024-05-19 10:04 | Outpatient (AMB) | payer MEDICAID, SELFPAY ==
--- NOTE | 2024-05-19 10:45 | MHC.OFFVIS ---
Intake Visit Reasons: OV -L knee aspiration/synov. Intake Note: Argelia is a 58 year old female who presents today for a Synovasure Aspiration of her left knee. She is s/p Left TKA 06/09/23 Allergies cortisone [CORTISONE] Allergy (Intermediate, Verified 04/14/24 09:45) ELEVATES BLOOD SUGAR ibuprofen [IBUPROFEN] Allergy (Intermediate, Verified 04/14/24 09:45) GI UPSET, stomach upset mayonnaise [MAYONNAISE] Allergy (Mild, Verified 04/14/24 09:45) RASH naproxen [NAPROXEN] Adverse Reaction (Intermediate, Verified 04/14/24 09:45) STOMACH UPSET Vicodin Allergy (Unknown, Uncoded 04/14/24 09:45) palpitations,hypertension Cortisone Adverse Reaction (Unknown, Uncoded 04/14/24 09:45) hyperglycemia HPI HPI OV -L knee aspiration/synov.: Details: Argelia is a 58 year old female who presents today for a Synovasure Aspiration of her left knee. She is s/p Left TKA 06/09/23. ESR and CRP elevated. [facility] Medical History Back pain Arthritis Anemia GERD (gastroesophageal reflux disease) History of headache Osteoarthritis of knees, bilateral Depression Asthma High cholesterol Hypothyroidism Type 2 diabetes mellitus Bilateral carpal tunnel syndrome Fibromyalgia Chronic diarrhea Drug induced constipation Surgical History History of total right knee replacement (TKR) Hx of bilateral cataract extraction History of esophagogastroduodenoscopy (EGD) H/O colonoscopy Hx of hand surgery History of cholecystectomy (~2011) S/p bilateral carpal tunnel release (~2003) Hx of laparoscopic adjustable gastric banding (~2009) History of removal of laparoscopic gastric banding device (~10/2012) H/O: hysterectomy (~10/2012) Family History Mother No problems noted. Father Cancer Sister Breast cancer Social History Household Members: Family Household Members Other:: sister Housing: House Are you a primary healthcare administrative assistant to a significant other at home: No Do you presently have visiting nurse or other home services: Yes (Daughter LEASE OUT MAN) Alcohol intake: never Comment: COUNTS CORRECT Patient Tobacco Use Status: Current everyday Tobacco user Tobacco use type: Cigarette Cigarettes Per Day: 6 Years Smoked: 47 service: No Current occupational status: disabled Physical Exam Extrem Other: mild effusion no warmth global ttp inc clean and dry Office Procedures Joint Injection/Aspiration Joint Injection/Aspiration Details: Aspirated 5 ml nl synovial fluid Primary Site: left knee Prep: site was prepped using sterile technique Approach Used: lateral parapatellar Procedure: The patient tolerated the procedure well Coding - Large joint Procedure code (CPT) selection complete Assessment & Plan Assessment & Plan (1) Chronic knee pain after total replacement of left knee joint: Code(s): M25.562 - Pain in left knee; G89.29 - Other chronic pain; Z96.652 - Presence of left artificial knee joint Category: Medical Plan: nl appearing joint fluid. Aspiration sent for Synovasure. Coding Level of Care Code Est Pt Level 2 (34507) Diagnoses Chronic knee pain after total replacement of left knee joint M25.562; G89.29; Z96.652 CPT Codes Coding - 56723 Large joint: 10385 - Large joint ([id number])
== END 2024-05-19 11:03 | disposition home or self-care (01) ==
PROVIDERS: PCP Registered Nurse; Referring Provider Registered Nurse; Visit Provider Orthopaedic Surgery
DX: M25.562 Pain in left knee (principal); G89.29 Other chronic pain; Z96.652 Presence of left artificial knee joint
CPT/HCPCS: 20610; 99212

== ENCOUNTER → 2024-05-19 10:04 | Outpatient (BNVA) | payer MEDICAID, SELFPAY | PROVIDERS: PCP Registered Nurse; Visit Provider Orthopaedic Surgery | DX: M25.562 Pain in left knee (principal); G89.29 Other chronic pain; Z96.652 Presence of left artificial knee joint | CPT/HCPCS: 20610; 99212 ==

== ENCOUNTER 2024-05-23 16:55 | Outpatient (REF) | payer MEDICAID, SELFPAY ==
--- NOTE | ~2024-05-23 | CT_ITS ---
EXAMINATION: CT KNEE WITHOUT CONTRAST, LEFT CLINICAL INFORMATION: Left total knee replacement. COMPARISON: X-ray of the left knee March 2024. TECHNIQUE: CT scan of the left knee is performed with reconstruction imaging performed at the acquisition workstation. This CT examination was performed using dose optimization techniques as appropriate, variously including the following: *Automated exposure control. *Adjustment of mA and/or kV according to patient size (this includes techniques or standardized protocols for targeted exams where dose is matched to indication/reason for exam; i.e. extremities or head). *Use of iterative reconstruction technique. DLP: 127 mGy-cm FINDINGS: Post-op changes related to left total knee arthroplasty. The components are in the usual position with normal appearance. No periprosthetic lucency. No periprostatic fracture. Muscles/Tendons: There is heterogeneity and perhaps slight enlargement of the distal quadriceps tendon which could reflect postsurgical result or intrasubstance partial tearing. No transverse defect or tendon retraction. Surrounding muscles normal. Remaining muscles and tendons normal. Subcutaneous Soft Tissues: Minimal edema in the anterior subcutaneous soft tissues. CT/CT knee LT wo IV con IMPRESSION: 1. Postoperative changes related to left total knee arthroplasty. 2. Slight enlargement and heterogeneity of the distal quadriceps tendon which could reflect postsurgical result or intrasubstance partial tearing. No transverse defect or tendon retraction. Electronically signed by: Yamil Lima MD 06/13/2024 07:55 AM [facility]
== END 2024-05-23 16:56 | disposition home or self-care (01) ==
LOC: HO.CT 16:55
PROVIDERS: PCP Registered Nurse; Visit Provider Orthopaedic Surgery
DX: Z96.652 Presence of left artificial knee joint (principal)
CPT/HCPCS: 73700

== ENCOUNTER → 2024-09-04 11:23 | Outpatient (BNV) | payer MEDICAID, SELFPAY | PROVIDERS: PCP Registered Nurse; Visit Provider Internal Medicine Cardiovascular Disease | DX: R00.1 Bradycardia, unspecified (principal) | CPT/HCPCS: 93010 ==

== ENCOUNTER → 2024-09-05 08:57 | Outpatient (BNVA) | payer MEDICAID, SELFPAY | PROVIDERS: PCP Registered Nurse | DX: Z01.818 Encounter for other preprocedural examination (principal) ==

== ENCOUNTER 2024-09-18 11:21 | Outpatient (REF) | payer MEDICAID, SELFPAY ==
--- OUTSIDE RECORDS SUMMARY | 2024-09-18 13:05 | XMS_ITS ---
Author Organization [facility] Address [address] [place] [address] Care Team Providers Care Domestic Cleaner Name Role Phone OMERO SOTO MD Primary Care Provider Naun Silva Jr, Aidan Unavailable [phone] REASON FOR VISIT conf appt Encounters Encounter Location Date Provider Diagnosis [facility] [address] [place] [address] 06/21/2024 Aidan Silva Jr PLAN OF TREATMENT No Information
--- OUTSIDE RECORDS SUMMARY | 2024-09-18 13:05 | XMS_ITS ---
Author Organization [facility] Address [address] [place] [address] Care Team Providers Care Superintendent Geophysical Laboratory Name Role Phone OMERO SOTO MD Primary Care Provider Naun Silva Jr, Aidan [facility] REASON FOR VISIT screening colonoscopy Encounters Encounter Location Date Provider Diagnosis [facility] [address] [place] [id number] 06/26/2024 Aidan Silva Jr PLAN OF TREATMENT No Information
--- OUTSIDE RECORDS SUMMARY | 2024-09-18 13:05 | XMS_ITS | Patient Health Record ---
Author Organization [facility] Address [address] [place] [address] Care Team Providers Care Supervisor Paste Mixing Name Role Phone OMERO SOTO MD Primary Care Provider Aidan Fried Jr Unavailable REASON FOR REFERRAL Referring Provider First Name OMERO Referring Provider Last Name CHARLES Referred Organization [facility] Referred Provider Aidan Silva Jr Referred Address [address],[facility] [address],[place],[address], Referred Provider Specialty Gastroentero logy Referral Priority Routine SOCIAL HISTORY Sex Assigned At : Social History Observation Description Sex Assigned At Unknown Encounters Encounter Location Date Provider Diagnosis [facility] [address] [place] [address] 06/26/2024 Aidan Silva Jr [facility] [address] [place] [address] 06/21/2024 Aidan Silva Jr PLAN OF TREATMENT No Information Insurance Providers Payer Name Payer Address Payer Phone Subscriber Number Group Number Insured Name Patient Relationship to Insured Coverage Start Date Coverage End Date [place] [address] [place] [phone] [id number] NIELS CABALLERO Self - patient is the insured
[2024-09-18 14:46] LABS: MANUAL DIFF FLAG NO
[2024-09-18 14:49] LABS: Basophils Percent Auto 0.5 % (0-2); Eosinophils Absolute Auto 0.1 X10*3/uL (0.0-0.4); Eosinophils Percent Auto 0.6 % (0-4); Hematocrit 37.8 % (37.0-47.0); Hemoglobin 12.9 g/dl (12.0-16.0); Imm Gran Abs Auto 0.14 X10*3/uL (0.00-0.03); Imm Gran Pct Auto 1.7 % (0.0-0.4); Lymphocytes Percent Auto 24.5 % (20-40); Mean Corpuscular HGB Conc 34.1 g/dl (31.0-35.0); Mean Corpuscular Hemoglobin 30.3 pg (27.0-33.0); Mean Corpuscular Volume 88.7 fL (80.0-98.0); Mean Platelet Volume 10.7 fL (9.4-12.3); Monocytes Absolute Auto 0.4 X10*3/uL (0.1-1.2); Monocytes Percent Auto 5.3 % (2-11); Neutrophils Absolute Auto 5.5 x10*3/uL (2.0-8.3); Neutrophils Percent Auto 67.4 % (45-73); Platelet Count 247 X10*3/uL (160-400); Red Blood Count 4.26 X10*6/uL (4.20-5.50); Red Cell Distribution Width 12.9 % (11.0-16.0); White Blood Count 8.1 X10*3/uL (4.8-10.8)
[2024-09-18 15:20] LABS: Alanine Aminotransferase 27 U/L (0-31); Albumin Level 3.9 g/dL (3.5-5.0); Alkaline Phosphatase 104 U/L (39-117); Anion Gap 13 (12-20); Bilirubin Total 0.4 mg/dL (0.0-1.0); Blood Urea Nitrogen 17 mg/dL (9-16); Carbon Dioxide 24 mmol/L (22-29); Chloride 106 mmol/L (96-108); Cholesterol 156 mg/dL (<200); Estimated Glomerular Filt Rate > 60; Glucose Random 255 mg/dL (60-115); HDL Cholesterol 54 mg/dL (>40); LDL Cholesterol Calculated 75 mg/dL (<100); Sodium 139 mmol/L (135-145); Total Protein 7.5 g/dL (6.5-8.0); Triglycerides 136 mg/dL (<150)
[2024-09-18 15:29] LABS: Creatinine Urine 65.49 mg/dL; Microalbum/Creatinine Ratio Ur 12.2 ug/mg cr (<30)
[2024-09-18 15:30] LABS: TSH reflex Free T4 0.97 uIU/mL (0.32-4.0)
[2024-09-18 16:42] LABS: Aspartate Amino Transferase 17 U/L (5-31)
[2024-09-19 08:35] LABS: HIV AB/AG Nonreactive (Nonreactive); HIV Num 1 0.06 S/CO (0.00-0.99)
[2024-09-20 09:58] LABS: RPR Rapid Plasma Reagin NON-REACTIVE (NON-REACTIVE)
[2024-09-22 14:53] LABS: HCV Log PCR <1.18 NOT DETECTED Log IU/mL (NOT DETECTED); HepC Viral Load <15 NOT DETECTED IU/mL (NOT DETECTED)
== END 2024-09-18 11:22 | disposition home or self-care (01) ==
LOC: HO.CHCLDS 11:21
PROVIDERS: Visit Provider Registered Nurse
DX: Z00.00 Encounter for general adult medical examination without abnormal findings (principal)
CPT/HCPCS: 36415; 80053; 80061; 82043; 82570; 84443; 85025; 86592; 87389; 87522

== ENCOUNTER 2024-09-20 09:51 | Outpatient (REF) | payer MEDICAID, SELFPAY ==
--- OUTSIDE RECORDS SUMMARY | 2024-09-20 11:42 | XMS_ITS | Encounter Summary ---
Author Organization [employer] Address [address] [facility] 7t [place] [address] Care Team Providers Care Econometrics Professor Name Role Phone Princess Min Primary Care Provider [phone] Princess Min Primary Care Provider [phone] Princess Min Primary Care Provider [phone] Reason for Visit * Reason Onset Date Comments PT1 request 10/19/2022 Encounter Details Date Type Department Care Team (Late st Contact Info) Description 10/19/2022 Telephone [facility] MEDICINE [address] [place] [address] Princess Min FNP [address] [place], [place] [phone] PT1 request Social History Tobacco Use Types Packs/Day Years Used Date Smoking Tobacco: Some Days Cigarettes Smokeless Tobacco: Never Alcohol Use Standard Drinks/Week Comments Not Currently 0 (1 standard drink = 0.6 oz pur e alcohol) Occasionally Comments Unknown Sex and Gender Information Value Date Recorded Sex Assigned at Female 05/25/2022 10:15 AM EDT Legal Sex Female 10:15 AM EDT Gender Identity Female 05/25/2022 10:15 AM EDT Sexual Orientation Straight 05/25/2022 10 :15 AM EDT COVID-19 Exposure Response Date Recorded In the last 10 days, have yo u been in contact with someone who was confirmed or suspected to have Coronavirus/COVID-19? No / Unsure 10/16/2022 10:51 AM EDT documented as of this encounter Miscellaneous Notes * Telephone Encounter - Diamond Grimes - 12/29/2022 12:06 PM EDT Patient will recieve approval / denial letter via mail. PT-1 Request [id number] Authorized - [facility] PT-1 Request [id number] Pending [facility] [place] [place] Specialty [address] [place] [id number] * Telephone Encounter - Alissa Winkler - 10/19/2022 11:55 AM EDT Tc from pt requesting PT1 Location:[facility] Specialty: Provider Date&Time:N/a Parking Lot Supervisor: yes Uses cane Location: [facility] Specialty: Orthopedics Date&Time: N/a Parking Lot Supervisor: Yes Location:[facility] Specialty: [facility] center Date&Time:N/a Parking Lot Supervisor: yes documented in this encounter Plan of Treatment Not on file documented as of this encounter Visit Diagnoses Not on filedocumented in this encounter Care Teams Econometrics Professor Relationship Specialty Start Date End Date Princess Min FNP [address] [place] [address] PCP - General Family Medicine 03/20/22 12/26/23 Princess Min FNP [address] [place] [address] PCP - General Family Medicine 01/21/24 02/03/24 Princess Min FNP [address] [place] [address] PCP - General Family Medicine 02/10/24 documented as of this encounter
--- OUTSIDE RECORDS SUMMARY | 2024-09-20 11:42 | XMS_ITS | Encounter Summary ---
Author Organization [employer] Address [address] [facility] 7t [place] [address] Care Team Providers Care Mill Tender Second Operator Name Role Phone rPincess Min Primary Care Provider [phone] Princess Min Primary Care Provider [phone] Princess Min Primary Care Provider [phone] Reason for Visit * Reason Onset Date Comments Referral 11/20/2022 Encounter Details Date Type Department Care Team (Late st Contact Info) Description 11/20/2022 Telephone [facility] MEDICINE [address] [place] [address] Princess Min FNP [address] [place], [place] [phone] Referral Social History Tobacco Use Types Packs/Day Years Used Date Smoking Tobacco: Some Days Cigarettes Smokeless Tobacco: Never Alcohol Use Standard Drinks/Week Comments Not Currently 0 (1 standard drink = 0.6 oz pur e alcohol) Occasionally PHQ-2 Answer Date Recorded Patient Health Questionnaire-2 Score 6 11/16/2022 Comments Unknown Sex and Gender Information Value [...] suspected to have Coronavirus/COVID-19? No / Unsure 11/16/2022 9:03 AM EDT documented as of this encounter Miscellaneous Notes * Telephone Encounter - Anjali Rene RN - 11/26/2022 1:23 PM EDT Returned call to pt regarding message below. Pt states she would like to see Dr Deras at [facility] [place] because of her strong family hx of CA. Pt is concerned as pt is getting older and wants screenings. Pt informed that pt has upcoming appt with PCP on 12/08/22 and can discuss concerns there and if indicated,PCP can place referral. Pt agrees with plan. * Telephone Encounter - Alissa Winkler - 11/20/2022 10:12 AM EDT Tc from pt requesting a referral Specialty: Seth Deras [facility] Location:[address] [place] [address] Dr Dorsey [address] [place] [address] Date&Time: n/a Social Research Assistant: n/a Please call pt to clarify. documented in this encounter Plan of Treatment Not on file documented as of this encounter Visit Diagnoses Not on filedocumented in this encounter Additional Health Concerns Assessment Noted Time PHQ-9 Depression Total Score: 023 9:25 AM EDT documented as of this encounter Care Teams Mill Tender Second Operator Relationship Specialty Start Date End Date Princess Min FNP [address] [place] [address] PCP - General Family Medicine 03/20/22 12/26/23 Princess Min FNP [address] [place] [address] PCP - General Family Medicine 01/21/24 02/03/24 Princess Min FNP [address] [place] [address] PCP - General Family Medicine 02/10/24 documented as of this encounter
--- OUTSIDE RECORDS SUMMARY | 2024-09-20 11:42 | XMS_ITS | Encounter Summary ---
Author Organization [employer] Address [address] [facility] 7t [place] [address] Care Team Providers Care Faculty Support Coordinator Name Role Phone Princess Min Primary Care Provider Princess Min Primary Care Provider [phone] Princess Min Primary Care Provider [phone] Reason for Visit * Reason Onset Date Comments Durable Medical Equipment 11/19/2022 Encounter Details Date Type Department Care Team (Late st Contact Info) Description 11/19/2022 Telephone [facility] MEDICINE [address] [place] [address] Princess Min FNP [address] [place], [place] [phone] Durable Medical Equipment Social History Tobacco Use Types Packs/Day Years [...] encounter Miscellaneous Notes * Telephone Encounter - Barbie Montanez - 12/09/2022 8:58 AM EDT TC to pt and informed her she has [facility] for insurance and will need to change it to C3 before I couldprovide a referral number to [facility] to process DME. Patient understood and agreed with plan. * Telephone Encounter - Miracle Dickens - 12/08/2022 4:32 PM EDT Tc from pt regarding message below. Pt states [facility] is requesting a PA If any questions please contact pt at [phone] * Telephone Encounter - Barbie Montanez - 12/08/2022 12:34 PM EDT Scripts received from provider and faxed to [facility] as requested. Patient notified. * Telephone Encounter - Dean Alvarado - 12/08/2022 12:06 PM EDT Tc from pt requesting status update on script for commode and shower chair, states would like script to sent to [facility]. Please contact at [phone] * Telephone Encounter - Barbie Montanez - 11/19/2022 3:16 PM EDT Scripts for shower chair and commode generated for signature * Telephone Encounter - Jareth Cifuentes - 11/19/2022 2:55 PM EDT Tc from pt requesting a script for a commode also a script for a shower chair. To be faxed to [facility] Please contact pt at [phone] documented in this encounter Plan of Treatment Not on file documented as of this encounter Visit Diagnoses Not on filedocumented in this encounter Additional Health Concerns Assessment Noted Time PHQ-9 Depression Total Score: 023 9:25 AM EDT documented as of this encounter Care Teams Faculty Support Coordinator Relationship Specialty Start Date End Date Princess Min FNP [address] [place] [address] PCP - General Family Medicine 03/20/22 12/26/23 Princess Min FNP [address] [place] [address] PCP - General Family Medicine 01/21/24 02/03/24 Princess Min FNP [address] [place] [address] PCP - General Family Medicine 02/10/24 documented as of this encounter
--- OUTSIDE RECORDS SUMMARY | 2024-09-20 11:42 | XMS_ITS | Encounter Summary ---
Author Organization [employer] Address [address] [facility] [address]t [place] [address] Care Team Providers Care Steamfitter Supervisor Name Role Phone Princess Min Primary Care Provider [phone] Princess Min Primary Care Provider [phone] Princess Min Primary Care Provider [phone] Reason for Visit * Reason Onset Date Comments PT1 11/20/2022 Encounter Details Date Type Department Care Team (Late st Contact Info) Description 11/20/2022 Telephone [facility] MEDICINE [address] [place] [address] Princess Min FNP [address] [place], [place] [phone] PT1 Social History Tobacco Use Types Packs/Day Years [...] * Telephone Encounter - Diamond Grimes - 12/22/2022 11:42 AM EDT Patient will recieve approval / denial letter via mail. PT-1 Request [id number] Authorized - [facility] [address] [address] * Telephone Encounter - Mayur Thomas - 11/20/2022 9:19 AM EDT Tc from pt requesting to Renew PT1 for Name of facility: n/a Specialty: All Future appts Location: [address] [place] [address] Date: n/a Time: n/a fax: n/a Phone: n/a wheelchair: n/a Ship Liner: Yes (Adult) For all future appts documented in this encounter Plan of Treatment Not on file documented as of this encounter Visit Diagnoses Not on filedocumented in this encounter Additional Health Concerns Assessment Noted Time PHQ-9 Depression Total Score: 24 023 9:25 AM EDT documented as of this encounter Care Teams Steamfitter Supervisor Relationship Specialty Start Date End Date Princess Min FNP [address] [place] [address] PCP - General Family Medicine 03/20/22 12/26/23 Princess Min FNP [address] [place] [address] PCP - General Family Medicine 01/21/24 02/03/24 Princess Min FNP [address] [place] [address] PCP - General Family Medicine 02/10/24 documented as of this encounter
--- OUTSIDE RECORDS SUMMARY | 2024-09-20 11:42 | XMS_ITS | Encounter Summary ---
Author Organization [employer] Address [address] [facility] 7t [place] [address] Care Team Providers Care Photo Tube Assembler Name Role Phone Princess Min Primary Care Provider Princess Min Primary Care Provider [phone] Princess Min Primary Care Provider [phone] Reason for Referral * Imaging (Routine) - Closed Specialty Diagnoses / Procedures Referred By Elaina t Referred To Contact Diagnoses Encounter for screening mammogram for malignant neoplasm of breast Procedures BI Mammogram Screening Bilateral Princess Min FNP [address] [place] [address] Phone: tel: fax: [address] Phone: tel: fax: Referral ID Status Reason Start Date Expiration Date Visits Re quested Visits Authorized [id number] Closed 11/23/2022 05/22/2023 1 1 Reason for Visit * Reason Onset Date Comments Referral 11/20/2022 Encounter Details Date Type Department Care Team (Late st Contact Info) Description 11/20/2022 Telephone [facility] MEDICINE [address] [place] [address] Princess Min FNP [address] [place], [place] [phone] Referral Social History Tobacco Use Types Packs/Day [...] encounter Miscellaneous Notes * Telephone Encounter - BIANCA Arboleda - 11/23/2022 6:32 AM EDT Please fax order for mammo to [facility] and call to let Ms. Garcia know when completed. Thank you. * Telephone Encounter - Alissa Winkler - 11/20/2022 10:16 AM EDT Tc from pt requesting a mammogram referral . Location [facility]. documented in this encounter Plan of Treatment Scheduled Orders Name Type Priority Associated Diagnoses Orde r Schedule BI Mammogram Screening Bilateral Imaging Routine Encounter for screening mammogram for malignant neoplasm of breast Expected: 11/23/2022, Expires: 01/24/2024 documented as of this encounter Visit Diagnoses Diagnosis Encounter for screening mammogram for malignant neoplasm of breast- Primary documented in this encounter Additional Health Concerns Assessment Noted Time PHQ-9 Depression Total Score: 24 023 9:25 AM EDT documented as of this encounter Care Teams Photo Tube Assembler Relationship Specialty Start Date End Date Princess Min FNP [address] [place] [address] PCP - General Family Medicine 03/20/22 12/26/23 Princess Min FNP [address] [place] [address] PCP - General Family Medicine 01/21/24 02/03/24 Princess Min FNP [address] [place] [address] PCP - General Family Medicine 02/10/24 documented as of this encounter
--- OUTSIDE RECORDS SUMMARY | 2024-09-20 11:42 | XMS_ITS | Encounter Summary ---
Author Organization [employer] Address [address] [facility] 7t [place] [address] Care Team Providers Care Housekeeping Attendant Name Role Phone Princess Min Primary Care Provider [phone] Princess Min Primary Care Provider [phone] Princess Min Primary Care Provider [phone] Reason for Visit * Reason Onset Date Comments Appointment Request 11/20/2022 Encounter Details Date Type Department Care Team (Late st Contact Info) Description 11/20/2022 Telephone [facility] MEDICINE [address] [place] [address] Princess Min FNP [address] [place], [place] [phone] Appointment Request Social History Tobacco Use Types Packs/Day Years [...] encounter Miscellaneous Notes * Telephone Encounter - Mayur Thomas - 11/20/2022 9:21 AM EDT Tc from pt requesting an appt with providers in regards to switching program. Please contact pt at [phone] Bahamian Speaker documented in this encounter Plan of Treatment Not on file documented as of this encounter Visit Diagnoses Not on filedocumented in this encounter Additional Health Concerns Assessment Noted Time PHQ-9 Depression Total Score: 023 9:25 AM EDT documented as of this encounter Care Teams Housekeeping Attendant Relationship Specialty Start Date End Date Princess Min FNP [address] [place] [address] PCP - General Family Medicine 03/20/22 12/26/23 Princess Min FNP [address] [place] [address] PCP - General Family Medicine 01/21/24 02/03/24 Princess Min FNP [address] [place] [address] PCP - General Family Medicine 02/10/24 documented as of this encounter
--- OUTSIDE RECORDS SUMMARY | 2024-09-20 11:42 | XMS_ITS | Encounter Summary ---
Author Organization [employer] Address [address] [facility] 7t [place] [address] Care Team Providers Care Logistics Clerk Name Role Phone Princess Min Primary Care Provider [phone] Princess Min Primary Care Provider [phone] Princess Min Primary Care Provider [phone] Reason for Visit * Reason Onset Date Comments Triage 10/19/2022 Encounter Details Date Type Department Care Team ([facility] st Contact Info) Description 10/19/2022 Telephone [facility] MEDICINE [address] [place] [address] Princess Min FNP [address] [place], [place] [phone] Triage Social History Tobacco Use Types Packs/Day Years [...] * Telephone Encounter - Barbie Montanez - 10/19/2022 1:38 PM EDT Thank alex * Telephone Encounter - Barbie Montanez - 10/19/2022 12:41 PM EDT Please review message below. If you agree please add an addendum to patient note of 10/16 stating you're prescribing a new nebulizer. Thank you * Telephone Encounter - Lisbet Nix LPN - 10/19/2022 11:41 AM EDT Triage call returned to patient via [employer] associate [id number]. Patient reports only mild wheezing using albuterol inhaler as needed but cause of call is that when she plugged in her nebulizer machine it sparked and now is not working. Patient is requesting new nebulizer machine for on going use ofneb. treatments for her asthma. Patient reports that she is still having cough and that she does not like to take Tessalon Perrles as they dry her mouth out. Patient confirms no acute distress at time of call. Reviewed with patient home care recommendations, reasons to call back and symptoms that require immediate evaluation in UC or ER. Pt verbalized understanding and agrees. PA Specialis Team tasked to follow with need for new nebulizer equipment. Protocol Used: Asthma Attack (Adult) Protocol-Based Disposition: Home Care Positive Triage Question: * Mild asthma attack (e.g., no SOB at rest, mild SOB with walking, speaks normally in sentences, mild wheezing) * All higher-acuity triage questions were negative Care Advice Discussed: * Reasons To Call Back - An asthma attack is not better after 2 or 3 quick-relief treatments (such as albuterol by inhaleror nebulizer) 20 minutes apart. - Quick-relief asthma medicine (such as albuterol by inhaler or nebulizer) is needed more often than every 4 hours - Mild asthma symptoms not better after 24 hours - Mild wheezing or other asthma symptoms come and go for more than 3 days - You become worse * Telephone Encounter - Mayur Thomas - 10/19/2022 10:57 AM EDT Symptoms: Wheezing, Cough Outcome: Schedule an urgent appointment (within 1 hour) or talk to a nurse or provider soon Reason: No high acuity concerns reported by caller The caller accepted this outcome Please contact pt at [phone] Maori speaker documented in this encounter Plan of Treatment Not on file documented as of this encounter Visit Diagnoses Not on filedocumented in this encounter Care Teams Logistics Clerk Relationship Specialty Start Date End Date Princess Min FNP [address] [place] [address] PCP - General Family Medicine 03/20/22 12/26/23 Princess Min FNP [address] [place] [address] PCP - General Family Medicine 01/21/24 02/03/24 Princess Min FNP [address] [place] [address] PCP - General Family Medicine 02/10/24 documented as of this encounter
--- OUTSIDE RECORDS SUMMARY | 2024-09-20 11:42 | XMS_ITS | Encounter Summary ---
Author Organization [employer] Address [address] [facility] 7t [place] [address] Care Team Providers Care Manager Internet Name Role Phone Princess Min Primary Care Provider [phone] Reason for Visit * Reason Comments Med Refill Encounter Details Date Type Department Care Team ([facility] st Contact Info) Description 04/25/2024 Refill [facility] MEDICINE [address] [place] [address] Princess Min FNP [address] [place], [place] [phone] Social History Tobacco Use Types Packs/Day Years Used Date Smoking Tobacco: Every Day Cigarettes 0.3 38 Smokeless Tobacco: Never Alcohol Use Standard Drinks/Week Comments Not Currently 0 (1 standard drink = 0.6 oz pur e alcohol) Occasionally Alcohol Answer Date Recorded Frequency of Alcohol Consumption Not on file 03/03/2024 Average Number of Drinks Not on file 024 Frequency of Binge Drinking Not on file 03/2024 Score 0 03/03/2024 Depression Answer Date Recorded Patient Health Questionnaire-9 Score 3 03/03/2024 Patient Health Questionnaire-9 Score 3 03/03/2024 Last PHQ-9: Questionnaire Data Not on file 0 03/03/2024 Housing Stability Answer Date Recorded What is your housing situation today? I have kermit altman 03/03/[address] you li ve. Do you have problems with any of the following? None of the above 03/03/2024 Food Insecurity Answer Date Recorded Within the past 12 months, y ou worried that your food would run out before you got money to buy more: Often true 03/03/2024 Within the past 12 months,th e food you bought just didn't last and you didn't have enough money to get more: Often true 03/2024 Transportation Answer Date Recorded In the past 12 months, has l ack of transportation kept you from medical appts, meetings, work or from getting things needed for daily living? No 03/03/2024 Utilities Answer Date Recorded In the past 12 months, has t he electric, gas, oil or water company threatened to shut off services in your home? No 03/03/2024 Depression Answer Date Recorded Patient Health Questionnaire-2 Score 2 03/03/2024 Internet Access Answer Date Recorded Internet Access Q1 Yes 03/27/2024 Internet Access Q2 Not on file 03/27/2024 Comments Unknown Sex and Gender Information Value Date Recorded Sex Assigned at Female 05/25/2022 10:15 AM EDT Legal Sex Female 10:15 AM EDT Gender Identity Female 05/25/2022 10:15 AM EDT Sexual Orientation Straight 05/25/2022 10 :15 AM EDT documented as of this encounter Plan of Treatment Not on file documented as of this encounter Visit Diagnoses Not on filedocumented in this encounter Additional Health Concerns Assessment Noted Time PHQ-9 Depression Total Score: 3 03/03/20 24 11:33 AM EDT documented as of this encounter Care Teams Manager Internet Relationship Specialty Start Date End Date Princess Min FNP [address] [place] [address] PCP - General Family Medicine 02/10/24 documented as of this encounter
--- OUTSIDE RECORDS SUMMARY | 2024-09-20 11:43 | XMS_ITS | Patient Health Record ---
Author Organization [facility] Address [address] [place] [address] Care Team Providers Care Crown Pouncer Name Role Phone OMERO SOTO MD Primary Care Provider Aidan Fried Jr Unavailable REASON FOR REFERRAL Referring Provider First Name OMERO Referring Provider Last Name CHARLES Referred Organization [facility] Referred Provider Aidan Silva Jr Referred Address [address],[facility] [address],[place],[address], Referred Provider Specialty Gastroentero logy Referral Priority Routine SOCIAL HISTORY Sex Assigned At : Social History Observation Description Sex Assigned At Unknown Encounters Encounter Location Date Provider Diagnosis [facility] [address] [place] [address] 06/26/2024 Aidan Silva Jr [facility] [address] [place] [address] 06/21/2024 Aidan Silva Jr PLAN OF TREATMENT No Information Insurance Providers Payer Name Payer Address Payer Phone Subscriber Number Group Number Insured Name Patient Relationship to Insured Coverage Start Date Coverage End Date [place] [address] [place] [id number] NIELS CABALLERO Self - patient is the insured
--- OUTSIDE RECORDS SUMMARY | 2024-09-20 11:43 | XMS_ITS | Encounter Summary ---
Author Organization [employer] Address [address] [facility] 7t [place] [address] Care Team Providers Care Drop Wire Aligner Name Role Phone Princess Min Primary Care Provider [phone] Princess Min Primary Care Provider [phone] Princess Min Primary Care Provider [phone] Reason for Visit * Reason Onset Date Comments Appointment Request 08/03/2022 Encounter Details Date Type Department Care Team (Late st Contact Info) Description 08/03/2022 Telephone [facility] MEDICINE [address] [place] [address] Princess Min FNP [address] [place], [place] [phone] Appointment Request Social History Tobacco Use Types Packs/Day Years Used Date Smoking Tobacco: Never Assessed Comments Unknown Sex and Gender Information Value [...] suspected to have Coronavirus/COVID-19? No / Unsure 07/16/2022 12:50 PM EST documented as of this encounter Miscellaneous Notes * Telephone Encounter - Christina Oakley RN - 08/03/2022 12:26 PM EST Returned pt call via P/I#[id number], pt cancelled todays COMPUTER AIDE RV appt scheduled 11am. Pt previously cancelled 07/16/22 COMPUTER AIDE RV appt. Attempted to reschedule appt, offered 3 alternate times. 08/04/22, pt stated she will be in [place] for her sisters and back by 5pm. Offered her a time on 08/05/22, pt stated she doesn't know when she will be back. Offered her an appt today, 1 hour from now, beforeshe leaves for [place]. She said she will be long on her way to [place]. Reminded pt that she must attend these appointments to continue to receive her oxycodone script and that per her COMPUTER AIDE agreement she must come in within 24 hours for a random urine. Pt stated she will call back when she is available to reschedule. Will FYI PCP. * Telephone Encounter - Jareth Cifuentes - 08/03/2022 11:54 AM EST Tc from pt requesting to r/s appt 08/03/22 ( COMPUTER AIDE RV) pt states not able to come due to a lost in the family. Please contact pt at [phone] documented in this encounter Plan of Treatment Not on file documented as of this encounter Visit Diagnoses Not on filedocumented in this encounter Care Teams Drop Wire Aligner Relationship Specialty Start Date End Date Princess Min FNP [address] [place] [address] PCP - General Family Medicine 03/20/22 12/26/23 Princess Min FNP [address] [place] [address] PCP - General Family Medicine 01/21/24 02/03/24 Princess Min FNP [address] [place] [address] PCP - General Family Medicine 02/10/24 documented as of this encounter
--- OUTSIDE RECORDS SUMMARY | 2024-09-20 11:43 | XMS_ITS | Encounter Summary ---
Author Organization [employer] Address [address] [facility] [address] 7t [place] [address] Care Team Providers Care Meat Curer Name Role Phone Princess Min Primary Care Provider [phone] Princess Min Primary Care Provider [phone] Reason for Visit * Reason Comments Med Refill Encounter Details Date Type Department Care Team ([facility] st Contact Info) Description 02/03/2024 Refill [facility] [address] [place] [address] Princess Min FNP [address] [place], [place] [phone] Hypothyroidism, unspecified type Social History Tobacco Use Types Packs/Day Years Used Date Smoking Tobacco: Some Days Cigarettes Smokeless Tobacco: Never Alcohol Use Standard Drinks/Week Comments Not Currently 0 (1 standard drink = 0.6 oz pur e alcohol) Occasionally Depression Answer Date Recorded Patient Health Questionnaire-9 Score 10 02/05/2023 Housing Stability Answer Date Recorded What is your housing situation today? I have kermit altman 05/11/[address] you li ve. Do you have problems with any of the following? None of the above 05/11/2023 Food Insecurity Answer Date Recorded Within the past 12 months, y ou worried that your food would run out before you got money to buy more: Never True 05/11/2023 Within the past 12 months,th e food you bought just didn't last and you didn't have enough money to get more: Never True Transportation Answer Date Recorded In the past 12 months, has l ack of transportation kept you from medical appts, meetings, work or from getting things needed for daily living? No 05/11/2023 Utilities Answer Date Recorded In the past 12 months, has t he electric, gas, oil or water company threatened to shut off services in your home? No 05/11/2023 Depression Answer Date Recorded Patient Health Questionnaire-2 Score 2 02/05/2023 Comments Unknown Sex and Gender Information Value Date Recorded Sex Assigned at Female 05/25/2022 10:15 AM EDT Legal Sex Female 10:15 AM EDT Gender Identity Female 05/25/2022 10:15 AM EDT Sexual Orientation Straight 05/25/2022 10 :15 AM EDT documented as of this encounter Plan of Treatment Not on file documented as of this encounter Visit Diagnoses Diagnosis Hypothyroidism, unspecified type documented in this encounter Additional Health Concerns Assessment Noted Time PHQ-9 Depression Total Score: 10 023 10:39 AM EDT documented as of this encounter Care Teams Meat Curer Relationship Specialty Start Date End Date Princess Min FNP [address] [place] [address] PCP - General Family Medicine 01/21/24 02/03/24 Princess Min FNP [address] [place] [address] PCP - General Family Medicine 02/10/24 documented as of this encounter
--- OUTSIDE RECORDS SUMMARY | 2024-09-20 11:43 | XMS_ITS | Encounter Summary ---
Author Organization [employer] Address [address] [facility] 7t [place] [address] Care Team Providers Care Editor In Chief Newspaper Name Role Phone Princess Min Primary Care Provider [phone] Princess Min Primary Care Provider [phone] Princess Min Primary Care Provider [phone] Reason for Visit * Reason Onset Date Comments Durable Medical Equipment 10/27/2022 Encounter Details Date Type Department Care Team (Late st Contact Info) Description 10/27/[address] [facility] MEDICINE [address] [place] [address] Princess Min FNP [address] [place], [place] [phone] Durable Medical Equipment Social History Tobacco Use [...] suspected to have Coronavirus/COVID-19? No / Unsure 10/27/2022 10:48 AM EDT documented as of this encounter Miscellaneous Notes * Telephone Encounter - Barbie Montanez - 10/28/2022 10:43 AM EDT Scripts generated for signature * Telephone Encounter - Jareth Cifuentes - 10/27/2022 11:01 AM EDT Tc from pt requesting a script for a bath mat and a script for a cane also requesting a script for a shower head, script to be send to [facility]. documented in this encounter Plan of Treatment Not on file documented as of this encounter Visit Diagnoses Not on filedocumented in this encounter Care Teams Editor In Chief Newspaper Relationship Specialty Start Date End Date Princess Min FNP [address] [place] [address] PCP - General Family Medicine 03/20/22 12/26/23 Princess Min FNP [address] [place] [address] PCP - General Family Medicine 01/21/24 02/03/24 Princess Min FNP [address] [place] [address] PCP - General Family Medicine 02/10/24 documented as of this encounter
--- OUTSIDE RECORDS SUMMARY | 2024-09-20 11:43 | XMS_ITS ---
Author Organization [facility] Address [address] [place] [address] Care Team Providers Care Grain Commodity Manager Name Role Phone OMERO SOTO MD Primary Care Provider Naun Silva Jr, Aidan Unavailable REASON FOR VISIT conf appt Encounters Encounter Location Date Provider Diagnosis [facility] [address] [place] [address] 06/21/2024 Aidan Silva Jr PLAN OF TREATMENT No Information
--- OUTSIDE RECORDS SUMMARY | 2024-09-20 11:43 | XMS_ITS | Encounter Summary ---
Author Organization [employer] Address [address] [facility] 7t [place] [address] Care Team Providers Care Compressor House Operator Name Role Phone Princess Min Primary Care Provider [phone] Princess Min Primary Care Provider [phone] Reason for Visit * Reason Onset Date Comments New Med Request 02/03/2024 Encounter Details Date Type Department Care Team (Late st Contact Info) Description 02/03/2024 Telephone [facility] MEDICINE [address] [place] [address] Princess Min FNP [address] [place], [place] [phone] New Med Request Social History Tobacco Use Types Packs/Day [...] encounter Miscellaneous Notes * Telephone Encounter - Ruby Aguilera - 02/03/2024 2:33 PM EDT Tc from pt requesting a call back in regards Tramadol 50MG. Pt she have a letter and insurance approve medication for 12 months. documented in this encounter Plan of Treatment Not on file documented as of this encounter Visit Diagnoses Not on filedocumented in this encounter Additional Health Concerns Assessment Noted Time PHQ-9 Depression Total Score: 10 023 10:39 AM EDT documented as of this encounter Care Teams Compressor House Operator Relationship Specialty Start Date End Date Princess Min FNP [address] [place] [address] PCP - General Family Medicine 01/21/24 02/03/24 Princess Min FNP [address] [place] [address] PCP - General Family Medicine 02/10/24 documented as of this encounter
--- OUTSIDE RECORDS SUMMARY | 2024-09-20 11:43 | XMS_ITS | Encounter Summary ---
Author Organization [employer] Address [address] [facility] 7t [place] [address] Care Team Providers Care Librarian Assistant Name Role Phone Princess Min Primary Care Provider [phone] Princess Min Primary Care Provider [phone] Princess Min Primary Care Provider [phone] Reason for Visit * Reason Comments Med Refill Encounter Details Date Type Department Care Team (Late st Contact Info) Description 08/07/2022 Refill [facility] MEDICINE [address] [place], [place] [phone] Princess Min FNP [address] [place], [place] [phone] Cervical spondylosis Social History Tobacco Use Types Packs/Day Years [...] PM EST documented as of this encounter Plan of Treatment Not on file documented as of this encounter Visit Diagnoses Diagnosis Cervical spondylosis Cervical spondylosis without myelopathy documented in this encounter Care Teams Librarian Assistant Relationship Specialty Start Date End Date Princess Min FNP [address] [place], [place] [phone] PCP - General Family Medicine 03/20/22 12/26/23 Princess Min FNP [address] [place] [address] PCP - General Family Medicine 01/21/24 02/03/24 Princess Min FNP [address] [place] [address] PCP - General Family Medicine 02/10/24 documented as of this encounter
--- OUTSIDE RECORDS SUMMARY | 2024-09-20 11:43 | XMS_ITS | Encounter Summary ---
Author Organization [employer] Address [address] [facility] 7t [place] [address] Care Team Providers Care Provider Relations Consultant Name Role Phone Princess Min Primary Care Provider [phone] Princess Min Primary Care Provider [phone] Princess Min Primary Care Provider [phone] Reason for Visit * Reason Comments Med Refill Encounter Details Date Type Department Care Team ([facility] st Contact Info) Description 08/11/2022 Refill [facility] MEDICINE [address] [place], [place] [phone] Princess Min FNP [address] [place], [place] [phone] Cervical spondylosis Social History Tobacco Use Types [...] suspected to have Coronavirus/COVID-19? No / Unsure 08/13/2022 9:43 AM EST documented as of this encounter Plan of Treatment Not on file documented as of this encounter Visit Diagnoses Diagnosis Cervical spondylosis Cervical spondylosis without myelopathy documented in this encounter Care Teams Provider Relations Consultant Relationship Specialty Start Date End Date Princess Min FNP [address] [place], [place] [phone] PCP - General Family Medicine 03/20/22 12/26/23 Princess Min FNP [address] [place] [address] PCP - General Family Medicine 01/21/24 02/03/24 Princess Min FNP [address] [place] [address] PCP - General Family Medicine 02/10/24 documented as of this encounter
--- OUTSIDE RECORDS SUMMARY | 2024-09-20 11:43 | XMS_ITS | Encounter Summary ---
Author Organization [employer] Address [address] [facility] 7t [place] [address] Care Team Providers Care Territory Account Manager Name Role Phone Princess Min Primary Care Provider [phone] Princess Min Primary Care Provider [phone] Reason for Visit * Reason Comments Med Refill Encounter Details Date Type Department Care Team ([facility] st Contact Info) Description 01/02/2024 Refill [facility] MEDICINE [address] [place] [address] Princess Min FNP [address] [place], [place] [phone] Social History Tobacco Use Types Packs/Day Years [...] documented as of this encounter Care Teams Territory Account Manager Relationship Specialty Start Date End Date Princess Min FNP [address] [place] [address] PCP - General Family Medicine 01/21/24 02/03/24 Princess Min FNP [address] [place] [address] PCP - General Family Medicine 02/10/24 documented as of this encounter
--- OUTSIDE RECORDS SUMMARY | 2024-09-20 11:43 | XMS_ITS | Encounter Summary ---
Author Organization [employer] Address [address] [facility] 7t [place] [address] Care Team Providers Care Surveillance Supervisor Name Role Phone Princess Min Primary Care Provider [phone] Princess Min Primary Care Provider [phone] Reason for Visit * Reason Comments Med Change Request Encounter Details Date Type Department Care Team ([facility] Contact Info) Description 12/30/2023 Refill [facility] [address] [place], [place] [phone] Princess Min FNP [address] [place], [place] [phone] Social History Tobacco Use Types Packs/Day Years [...] encounter Miscellaneous Notes * Telephone Encounter - Dean Alvarado - 12/31/2023 1:43 PM EDT Tc from pt stating script semaglutide (Ozempic, 1 MG/DOSE,) 2 MG/1.5ML solution pen-injector needs a PA. documented in this encounter Plan of Treatment Not on file documented as of this encounter Visit Diagnoses Not on filedocumented in this encounter Additional Health Concerns Assessment Noted Time PHQ-9 Depression Total Score: 10 023 10:39 AM EDT documented as of this encounter Care Teams Surveillance Supervisor Relationship Specialty Start Date End Date Princess Min FNP [address] [place] [address] PCP - General Family Medicine 01/21/24 02/03/24 Princess Min FNP [address] [place] [address] PCP - General Family Medicine 02/10/24 documented as of this encounter
--- OUTSIDE RECORDS SUMMARY | 2024-09-20 11:43 | XMS_ITS | Encounter Summary ---
Author Organization [employer] Address [address] [place] [address] Care Team Providers Care Civil Cad Tech Name Role Phone Princess Min Primary Care Provider [phone] Princess Min Primary Care Provider [phone] Encounter Details Date Type Department Care Team (Late st Contact Info) Description 12/28/2023 Telephone [facility] MEDICINE [address] [place] [address] Princess Min FNP [address] [place], [place] [id number] Social History Tobacco Use Types Packs/Day Years [...] documented as of this encounter Care Teams Civil Cad Tech Relationship Specialty Start Date End Date Princess Min FNP [address] [place] [address] PCP - General Family Medicine 01/21/24 02/03/24 Princess Min FNP [address] [place] [address] PCP - General Family Medicine 02/10/24 documented as of this encounter
--- OUTSIDE RECORDS SUMMARY | 2024-09-20 11:43 | XMS_ITS | Encounter Summary ---
Author Organization [employer] Address [address] [facility] [address] [place] [address] Care Team Providers Care Bobbin Dumper Name Role Phone Princess Min Primary Care Provider [phone] Reason for Visit * Reason Onset Date Comments Med Refill 02/11/2024 Encounter Details Date Type Department Care Team (Late st Contact Info) Description 02/11/2024 Telephone [facility] MEDICINE [address] [place] [address] Princess Min FNP [address] [place], [place] [phone] Med Refill Social History Tobacco Use Types Packs/Day Years [...] encounter Miscellaneous Notes * Telephone Encounter - Christine Reddy LPN - 02/11/2024 1:02 PM EDT Medication was sent to [facility] on 11/29/23 with 3 refills. * Telephone Encounter - Drake Levy - 02/11/2024 11:57 AM EDT TC from pt requesting medication refill. Medications needing refill : Asmanex HFA 200 MCG/ACT aerosol To be sent to: [facility] - [place], [place] - [address] [facility] documented in this encounter Plan of Treatment Not on file documented as of this encounter Visit Diagnoses Not on filedocumented in this encounter Additional Health Concerns Assessment Noted Time PHQ-9 Depression Total Score: 10 023 10:39 AM EDT documented as of this encounter Care Teams Bobbin Dumper Relationship Specialty Start Date End Date Princess Min FNP [address] [place] [address] PCP - General Family Medicine 02/10/24 documented as of this encounter
--- OUTSIDE RECORDS SUMMARY | 2024-09-20 11:43 | XMS_ITS | Encounter Summary ---
Author Organization [employer] Address [address] [place] [address] Care Team Providers Care Painter Helper Name Role Phone Princess Min Primary Care Provider [phone] Princess Min Primary Care Provider [phone] Reason for Visit * Reason Onset Date Comments PT1 02/03/2024 Encounter Details Date Type Department Care Team ([facility] st Contact Info) Description 02/03/2024 Telephone [facility] MEDICINE [address] [place] [address] Princess Min FNP [address] [place], [place] [phone] PT1 Social History Tobacco Use Types Packs/Day [...] Telephone Encounter - Ruby Aguilera - 02/03/2024 2:29 PM EDT Patient calling requesting PT1 Home Address verified: Y/N: Yes Provider name or facility name: [facility] Facility Address: [address] [place] [address] Escort needed: Y/N: No Do you have a wheelchair: Y/N: No If yes- Manual or electric: No, but cane. Visits; N/A documented in this encounter Plan of Treatment Not on file documented as of this encounter Visit Diagnoses Not on filedocumented in this encounter Additional Health Concerns Assessment Noted Time PHQ-9 Depression Total Score: 10 023 10:39 AM EDT documented as of this encounter Care Teams Painter Helper Relationship Specialty Start Date End Date Princess Min FNP [address] [place] [address] PCP - General Family Medicine 01/21/24 02/03/24 Princess Min FNP [address] [place] [address] PCP - General Family Medicine 02/10/24 documented as of this encounter
--- OUTSIDE RECORDS SUMMARY | 2024-09-20 11:43 | XMS_ITS | Encounter Summary ---
Author Organization [employer] Address [address] [facility] 7[address] [place] [address] Care Team Providers Care Quality Management Nurse Name Role Phone Princess Min Primary Care Provider [phone] Reason for Visit * Reason Onset Date Comments Pre op 06/12/2024 Encounter Details Date Type Department Care Team (Late st Contact Info) Description 06/12/2024 Telephone [facility] MEDICINE [address] [place] [address] Princess Min FNP [address] [place], [place] [phone] Pre op Social History Tobacco Use Types Packs/Day Years [...] encounter Miscellaneous Notes * Telephone Encounter - Miracle Dickens - 06/12/2024 3:13 PM EST Date of Surgery: 09/12/23 Surgical procedure being done: Left knee total revision Type of anesthesia: general anesthesia Lab needed: Yes including A1c EKG: Yes Surgeon's name: Dr Laureano Facility name: [facility] Surgeon's office number: [phone] Surgeon's office fax number: [phone] Contact name (person you spoke with): Stephanie Last office note from surgeon requested: Yes Send Message to Miracle Dickens and Juice Gavin documented in this encounter Plan of Treatment Not on file documented as of this encounter Visit Diagnoses Not on filedocumented in this encounter Additional Health Concerns Assessment Noted Time PHQ-9 Depression Total Score: 3 03/03/20 11:33 AM EDT documented as of this encounter Care Teams Quality Management Nurse Relationship Specialty Start Date End Date Princess Min FNP [address] [place] [id number] PCP - General Family Medicine 02/10/24 documented as of this encounter
--- OUTSIDE RECORDS SUMMARY | 2024-09-20 11:43 | XMS_ITS | Clinical Summary ---
Author Organization [employer] Address [address] [facility] [address] [place] [address] Care Team Providers Care Tour Guide Name Role Phone Princess Min FROZEN FOOD DEPARTMENT MANAGER Primary Care Provider Allergies Active Allergy Reactions Criticality Noted Date Comments Acetaminophen 05/12/2017 Duloxetine Dizziness 07/10/2021 Hydrocodone 05/12/2017 Ibuprofen 11/26/2021 Medications buPROPion XL (Wellbutrin XL) 300 MG 24 hr tablet Take 1 tablet by mouth at bed time. 2021 Active clonazePAM (KlonoPIN) 0.5 MG tablet take 1 tablet in the AM and 2 tablets HS Active naloxone (Narcan) 4 mg/0.1 mL nasal spray Administer 0.1 mL into affected nostril(s). 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 fernanda diastolic heart failure ([facility]) Take 2 tablets by mouth once daily in the morning 180 tablet 1 2022 Active TRUEplus Lancets 33G miscIndications:Type 2 diabetes mellitus with hyperglycemia, unspecified whether penitentiary insulin use ([facility]) TEST BLOOD SUGAR TWICE DAILY 100 each 11 2022 Active Respiratory Therapy Supplies (Nebulizer/Tubing/Mout hpiece) kit Use as needed with albuterol nebulizer solution 1 kit 2022 Active amLODIPine (Norvasc) 5 MG tablet TAKE 1 TABLET BY MOUTH AT BEDTIME 2022 Active fluticasone (Flonase) 50 MCG/ACT nasal sprayIndications:Aller gic rhinitis, unspecified seasonality, unspecified trigger USE 1-2 SPRAYS IN EACH NOSTRIL EVERY DAY NEEDED 48 g 2022 Active Diclofenac Sodium 1 % gel APPLY 2 GRAMS TOPICALLY AFFECTED AREA(S) FOUR TIMES DAILY 200 g 3 2022 Active loratadine (Claritin) 10 MG tabletIndications:Cecil rgic rhinitis due to other allergic trigger, unspecified seasonality TAKE 1 TABLET BY MOUTH EVERYDAY AT NOON 90 tablet 3 2023 Active insulin pen needle (Penneord SafePack Pen Needle) 32G x 4 mm miscIndications:Type 2 diabetes mellitus with hyperglycemia, with long-term current use of insulin ([facility]) USE WITH INSULIN DIRECTED 100 each 11 2023 Active metFORMIN (Glucophage) 500 MG tablet Take 2 tablets by mouth 2 times daily. 2023 Active insulin glargine (Lantus SoloStar) 100 UNIT/ML penIndications:Type 2 diabetes mellitus with hyperglycemia, with long-term current use of insulin ([facility]) Inject 28 Units under the skin at bedtime. 15 mL 3 01/21 Active glucose blood (FREESTYLE LITE) test stripIndications:Type 2 diabetes mellitus without complication, with long-term current use of insulin ([facility]) Test blood sugar twice daily 100 strip 11 2023 Active levothyroxine (Synthroid, Levoxyl) 150 MCG tabletIndications:Hypo thyroidism, unspecified type Take 1 tablet (150 mcg) by mouth before breakfast. 90 tablet 3 2023 Active pantoprazole (ProtoNix) 20 MG EC tablet TAKE 1 TABLET BY MOUTH BEFORE BREAKFAST, DO NOT BREAK, CRUSH, DISSOLVE OR CHEW 90 tablet 3 2023 Active montelukast (Singulair) 10 MG tablet TAKE 1 TABLET BY MOUTH AT BEDTIME 90 tablet 3 2023 Active albuterol (Ventolin HFA) 108 (90 Base) MCG/ACT inhalerIndications:Mil d persistent asthma without complication INHALE 2 PUFFS BY MOUTH EVERY 4 TO 6 HOURS NEEDED 18 g 11 2023 Active lidocaine (Lidoderm) 5 % patchIndications:Arthr itis of knee APPLY 2 PATCHES TOPICALLY TO AFFECTED AREA(S) OF KNEE LEFT AND HIP RIGHT NEEDED FOR PAIN. LEAVE ON FOR 12 HOURS AND OFF FOR 12 HOURS 60 patch 5 2023 Active Invokana 300 MGIndications:Type 2 diabetes mellitus without complication, unspecified whether penitentiary insulin use ([facility]) TAKE 1 TABLET BY MOUTH EVERY MORNING 90 tablet 1 2023 Active acetaminophen (Tylenol 8 Hour) 650 MG ER tabletIndications:Hist ory of total knee arthroplasty, left Take 1 tablet (650 mg) by mouth every 8 (eight) hours if needed (pain or fever). Do not crush, chew, or split. 100 tablet 2 05/26 Active pravastatin (Pravachol) 40 MG tabletIndications:Pure hypercholesterolemia Take 1 tablet (40 mg) by mouth at bedtime. (Cholesterol) 90 tablet 3 2023 Active insulin pen needle 32G x 4 mm miscIndications:Type 2 diabetes mellitus without complication, with long-term current use of insulin ([facility]) Use as instructed with Victoza injections 100 each 12 06/14 Active Dulaglutide (Trulicity) 0.75 MG/0.5ML solution auto-injectorIndicatio ns:Type 2 diabetes mellitus without complication, with long-term current use of insulin ([facility]) Inject 0.5 mL (0.75 mg) under the skin 1 (one) time per week. 2 mL 3 2023 Active cyanocobalamin (Vitamin B-12) 1000 MCG tabletIndications:Beto mando deficiency TAKE 1 TABLET BY MOUTH EVERYDAY AT NOON 90 tablet 3 2023 Active irbesartan (Avapro) 300 MG tabletIndications:Prim chiquis hypertension TAKE 1 TABLET BY MOUTH EVERYDAY AT NOON 90 tablet 3 2024 Active amitriptyline (Elavil) 50 MG tablet Take 1 tablet (50 mg) by mouth at bedtime. 90 tablet 1 2024 Active topiramate (Topamax) 200 MG tabletIndications:Othe r migraine without status migrainosus, not intractable TAKE 1 TABLET BY MOUTH AT BEDTIME 90 tablet 1 2024 Active ammonium lactate (Lac-Hydrin) 12 % lotion APPLY TOPICALLY TO THE AFFECTED AREA(S) OF THE HEELS EVERY DAY AT BEDTIME, THEN WEAR SOCKS TO BED 225 g 3 02/21/ 2025 Active albuterol (2.5 MG/3ML) 0.083% nebulizer solution Take 3 mL by nebulization every 6 (six) hours if needed for wheezing or shortness of breath. 75 mL 2 2024 Active Mometasone Furoate (Asmanex HFA) 200 MCG/ACT aerosol INHALE 1 PUFF BY MOUTH TWICE DAILY. RINSE MOUTH AFTER USING. 13 g 3 2024 Active melatonin 5 MG tablet Take 1 tablet (5 mg) by mouth at bedtime. 30 tablet 11 09/15 Active predniSONE (Deltasone) 20 MG tablet Take 2 tablets (40 mg) by mouth Once per day for 5 days. 10 tablet 09/20 Active oxyCODONE (Roxicodone) 5 MG immediate release tabletIndications:Hist ory of total knee arthroplasty, left Take 1 tablet (5 mg) by mouth if needed each day for severe pain for up to 5 days. 5 tablet 09/23 Active albuterol (2.5 MG/3ML) 0.083% nebulizer solution Take 3 mL by nebulization every 6 (six) hours if needed for wheezing or shortness of breath. 75 mL 2 09/15 Discontinued( Reorder (will not trigger notification to Pharmacy)) Asmanex HFA 200 MCG/ACT aerosol INHALE 1 PUFF BY MOUTH TWICE DAILY. RINSE MOUTH AFTER USING. 13 g 3 09/15 Discontinued( Reorder (will not trigger notification to Pharmacy)) topiramate (Topamax) 200 MG tabletIndications:Othe r migraine without status migrainosus, not intractable TAKE 1 TABLET BY MOUTH AT BEDTIME 90 tablet 1 09/12 Discontinued amitriptyline (Elavil) 50 MG tablet TAKE 1 TABLET BY MOUTH AT BEDTIME 90 tablet 1 09/15 Discontinued( Reorder (will not trigger notification to Pharmacy)) ammonium lactate (Lac-Hydrin) 12 % lotion USE ON HEEL THEN APPLY SOCKS AT BEDTIME 225 g 1 09/08 Discontinued ammonium lactate (Lac-Hydrin) 12 % lotion APPLY TOPICALLY TO THE AFFECTED AREA(S) OF THE HEELS EVERY DAY AT BEDTIME, THEN WEAR SOCKS TO BED 225 g 3 09/15 Discontinued( Reorder (will not trigger notification to Pharmacy)) topiramate (Topamax) 200 MG tabletIndications:Othe r migraine without status migrainosus, not intractable TAKE 1 TABLET BY MOUTH AT BEDTIME 90 tablet 1 09/15 Discontinued( Reorder (will not trigger notification to Pharmacy)) Mometasone Furoate (Asmanex HFA) 200 MCG/ACT aerosol INHALE 1 PUFF BY MOUTH TWICE DAILY. RINSE MOUTH AFTER USING. 13 g 3 09/15 Discontinued( Reorder (will not trigger notification to Pharmacy)) Active Problems Problem Noted Date Diagnosed Date History of total knee arthroplasty, left 024 Overview (04/02/2024): 06/09/23 at [facility] - Dr. Laureano Assessment & Plan (05/28/2024 7:19 AM EST): - Persistent pain with (+) effusion s/p fall at home - XR Feb 2024 in [facility] ED demonstrated increased demineralization along the subjacent proximal tibia, particularly subjacent to the medial flange of the prosthesis with possibile slight medial settling. Large joint effusion. - Apr 2024: Synovasure aspiration left knee by Dr. Laureano. Elevated CRP/sed rate. Joint fluid sent for testing. Consideration of revision surgery pending results. Left hip pain 05/18/2023 Acid reflux 02/07/2023 Assessment & Plan (02/07/2023 12:45 PM EDT): ?? Currently using omeprazole PRN ?? Reports that pantoprazole was more beneficial in the past, interested in switching PPI ?? DISCONTINUE omeprazole ?? START pantoprazole 20mg PRN. Reviewed med use and safety Routine health maintenance 12/08/2022 Overview (09/18/2024): -Mammo: BIRADS 2 on 02/09/23. Mammo order placed 09/14/2024. -Pap: Total hysterectomy 2012 for symptomatic enlarged fibroids. No further Pap smears indicated -Colonoscopy: 05/25/2017, next due April 2027 Assessment & Plan (03/04/2024 6:04 PM EDT): -Mammo: BIRADS 2 on 02/09/23 -Pap: hysterectomy 2012 for symptomatic enlarged fibroids -Colonoscopy: Last available records colonoscopy 08/07/14 with rec f/u in 2-5 years. Referral placed to GI. -Vaccines: tetanus and COVID bivalent administered today Assessment & Plan (12/13/2022 10:18 PM EDT): -Mammo: BIRADS 23 January 2019, due. Scheduled for December 2022 -Pap: hysterectomy 2012 for symptomatic enlarged fibroids -Colonoscopy: Last available records colonoscopy 08/07/14 with rec f/u in 2-5 years. Referral placed to GI. 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 Congratulated on healthier lifestyle habits leading to adequate weight loss to qualify for surgery -Encourage multimodal approach to pain control Closed fracture of proximal phalanx of toe 02/24 Dupuytren's contracture 08/22/2018 Arthritis of knee 07/11/2018 Overview (03/04/2024): -Left TKA performed 06/09/[address] Laureano ([facility]) Assessment & Plan (03/04/2024 6:12 PM EDT): DME requests for the following items placed 03/04/24: Shower chair Commode Hand Held Shower Head Assessment & Plan (10/18/2022 10:18 AM EDT): -DME for cane requested Migraine 04/15/2018 Overview (05/28/2024): Continues with Topiramate 200mg nightly and amitriptyline 50mg at bedtime Reports well controlled with current regimen Moderate persistent asthma without complication 09/08/2017 Overview (09/18/2024): -Continues with Asmanex 200mcg/act 1 puff BID, Singulair 10mg nightly, and Albuterol PRN -DME request for nebulizer 09/18/2024 Assessment & Plan (09/18/2024 1:44 PM EST): Assessment & Plan (10/18/2022 10:21 AM EDT): -Pt reports previously using ProAir, which worked better than ventolin. Interested in switching rescue inahler -Original plan to change to SMART therapy (Symbicort as controller and rescue), although difficulties with insurance coverage. -Spoke with [facility] pharmacy, will attempt to change to generic albuterol to see if works better for pt Diastolic heart failure 02/03/2017 Overview (05/28/2024): -Continues on Irbestartan 300mg daily at bedtime, furosemide 40mg daily, on SGLT2 -Following with [facility] - Dr. Calle -Pt denies SOB, swelling in extremities, difficulty breathing Cervical spondylosis 10/19/2016 Fibroma 06/10/2016 Diabetes mellitus 05/27/2016 Overview (09/18/2024): Lab Results Component Value Date HGBA1C 6.4 (H) 09/04/2024 HGBA1C 5.6 04/18/2024 HGBA1C 5.9 03/03/2024 HGBA1C 6.5 (H) 04/27/2023 -A1c goal </= 7.0%, well controlled Medications: -Invokana 300mg daily (SGLT2) -Lantus 28 units SQ nightly -Trulicity 0.75mg subcutaneous weekly (GLP1) -Reviewed med side effects and safety -Lifestyle recommendations reviewed -Pt to follow up with [facility] Previous medications: - Ozempic (DC in May 2024 d/t SE - itching) Assessment & Plan (03/04/2024 6:11 PM EDT): Well controlled, congratulated on improvement in A1c Assessment & Plan (11/15/2022 10:30 PM EDT): Lab Results Component Value Date HGBA1C 9.2 10/29/2022 Assessment & Plan (08/30/2022 8:29 PM EST): -Lantus switched from vial to pen per patient request Lab Results Component Value Date HGBA1C 8.5 (A) 08/24/2022 Essential hypertension 05/27/2016 Overview (05/28/2024): -Continues with irbesartan 300mg daily QHS -Continues with low salt diet and exercise as able Assessment & Plan (05/28/2024 7:26 AM EST): Cont current regimen Assessment & Plan (03/04/2024 6:22 PM EDT): Elevated in office, although appears well controlled per home readings (130/80s). Continue current therapy and following with [facility]. Follow up if home BP above goal Hypothyroidism 05/27/2016 Overview (05/28/2024): -Continues on levothyroxine 150mcg daily -Denies fatigue, cold or heat intolerance, MCKEON, or palpitations -Previously followed by [facility], pt will call to schedule f/u Lab Results Component Value Date TSH 0.33 04/05/2023 Insomnia 05/27/2016 Trigger finger 05/27/2016 Overview (05/28/2024): Followed by [facility] PRN Vitamin D deficiency 04/17/2014 Cobalamin deficiency 03/23/2014 Mixed anxiety and depressive disorder 10/06/2013 Assessment & Plan (05/28/2024 7:27 AM EST): -Following with psych team from [facility] -Continue with Wellbutrin 300mg daily, -Denies SI/HI/thoughts of self harm Allergic rhinitis 01/11/2012 Obesity 12/17/2011 Pure hypercholesterolemia 12/17/2011 Resolved Problems Problem Noted Date Diagnosed Date Resolved Date Preop examination 05/18/2023 03/04/2024 Assessment & Plan (05/18/2023 10:20 AM EDT): RCRI score is 0, which is a 3.9% risk Surgery should proceed as schedule I explain she must be NPO after midnight the day pf the procedure Patient is on Lantus I explain she should use half of the dose which will be 15U the night before the procedure I explain she should take her blood pressure medications with a small sip of water the day of the procedure Patient is not on blood thinners Chronic, continuous use of opioids 08/30/2022 08/30/2022 Acute low back pain 05/25/2018 08/30/19 23 Encounters Date Type Department Care Team Description 09/20/2024 9:00 AM EST Office Visit [facility] [address] [place] [address] Carri Sawant FNP Preop examination (Primary Dx); Type 2 diabetes mellitus without complication, with long-term current use of insulin ([facility]) 09/20/2024 Travel 09/18/2024 10:15 AM EST Office Visit [facility] [address] [place] [address] Princess Min FNP Moderate persistent asthma without complication (Primary Dx); History of total knee arthroplasty, left; Encounter for screening mammogram for malignant neoplasm of breast; Healthcare maintenance; Routine health maintenance; Type 2 diabetes mellitus without complication, with long-term current use of insulin ([facility]) 09/18/2024 Telephone [facility] [address] [place] [address] Princess Min FNP Durable Medical Equipment 09/18/2024 Travel 09/15/2024 1:20 PM EST Office Visit [facility] [address] [place] [phone] Name, MD Alvaro Acute cough (Primary Dx); Wheezing; Nasal congestion; Moderate persistent asthma without complication 09/15/2024 Telephone [facility] [address] [place] [address] Princess Min FNP Nurse Triage 09/15/2024 Refill [facility] [address] [place] [address] Princess Min FNP 09/14/2024 Refill [facility] [address] [place] [phone] Princess Min FNP Other migraine without status migrainosus, not intractable 09/14/2024 Telephone [facility] [address] [place] [address] Abdifatah Martinez MA Chart Prep 09/12/2024 Refill [facility] [address] [place] [phone] Princess Min FNP Major depressive disorder, recurrent, moderate (CMS/HCC); Anxiety disorder, unspecified 09/12/[address] [address] Princess Min FNP Durable Medical Equipment 09/11/2024 Refill [facility] [address] [place] [phone] Princess Min FNP Other migraine without status migrainosus, not intractable 09/07/2024 Refill [facility] [address] [place] [phone] Princess Min FNP 09/04/2024 Orders Only GENERIC EXTERNAL DATA DEPARTMENT Provider, Generic External Data 08/17/[address] [address] Princess Min FNP Pre-Op appt. 08/16/[address] [address] Princess Min FNP No Show 08/15/2024 Travel 08/15/2024 Telephone [facility] [address] [place] [address] Princess Min FNP July08/13/2024 Refill [facility] [address] [place] [phone] Princess Min, FROZEN FOOD DEPARTMENT MANAGER Primary hypertension 07/20/2024 Telephone [facility] [address] [place] [address] Abdifatah Martinez MA Chart Prep 07/18/2024 Telephone [facility] [address] [place] [phone] Princess Min FNP Chart Prep 07/18/2024 Refill [facility] [address] [place] [phone] Princess Min, FROZEN FOOD DEPARTMENT MANAGER Cobalamin deficiency 07/17/2024 Refill [facility] [address] [place] [address] Princess Min, FROZEN FOOD DEPARTMENT MANAGER Acute otitis externa of left ear, unspecified type; Intermittent diarrhea 07/14/2024 Travel 07/14/2024 Telephone [facility] [address] [place] [address] Alexandria Jama RN 07/13/2024 Telephone [facility] [address] [place] [phone] Princess Min, FROZEN FOOD DEPARTMENT MANAGER Med Refill 07/13/2024 Telephone [facility] [address] [place] [phone] Princess Min FNP FYI 07/13/2024 Refill [facility] [address] [place] [phone] Princess Min, FROZEN FOOD DEPARTMENT MANAGER 07/10/2024 Telephone [facility] [address] [place] [address] Princess Min, FROZEN FOOD DEPARTMENT MANAGER Prior Authorization 06/29/2024 Telephone [facility] [address] [place] [phone] Princess Min FNP PA; Change PCP 06/20/2024 Telephone [facility] [address] [place] [phone] Princess Min FNP Nurse Triage from Last 3 Months Immunizations Name Administration Dates Next Due Hep B, adult 05/19/2018,08/20/2017,07/16/2017 Influenza Injectable Quadriv alant Preservative Free IIV4 MDCK 05/05/2023,04/28/2022 Influenza injectable quadriv alent IIV4 with preservative 05/19/2018,05/18/2016 Influenza injectable quadriv alent preservative free 05/20/2021,06/12/2020,07/14/2019,07/16 Influenza, IIV3, injectable 04/17/2014, 0 Influenza, Split (incl. manohar fied surface antigen) 05/15/2013,06/09/2012 Influenza, injectable, quadr ivalent, preservative free, pediatric 05/18/2016 Moderna Covid-19 Vaccine 12+ 08/06/2021,12/04/19,10/11/2020 Moderna Covid-19 Vaccine 6+ Bivalent 12/08/2022 Pneumococcal Conjugate PCV 20 05/05/2022 Pneumococcal Polysaccharide PPSV23 09/23/2016, TD (adult), 2 Lf tetanus tox oid, preservative free, adsorbed 12/24/1998,06/25/1998 Td (adult), 5 Lf tetanus tox oid, preservative free, adsorbed 07/09/2012 Tdap 12/08/2022,04/07/2010 Zoster, Recombinant 04/28/2022,12/23/2021 Social History Tobacco Use Types Packs/Day Years [...] Orientation Straight 05/25/2022 10 :15 AM EDT Last Filed Vital Signs Vital Sign Reading Time Taken Comments Blood Pressure 120/80 09/20/2024 9:33 AM EST Pulse 58 09/20/2024 9:00 AM EST Temperature 36.7 ??C (98 ??F) 09/20/2024 9:00 AM EST Respiratory Rate 18 09/20/2024 9:00 AM EST Oxygen Saturation 98% 09/20/2024 9:00 AM EST Inhaled Oxygen Concentration - - Weight 103 kg (228 lb) 09/20/2024 9:00 AM EST Height 154.9 cm (5' 1 ) 09/20/2024 9:00 AM EST Body Mass Index 43.08 09/20/2024 9:00 AM EST Plan of Treatment Health Maintenance Due Date Last Done Comments CT Colonography 1963 Dental Oral Exam 1963 Dental Prophylaxis 1963 Dental X-Ray: Bitewings 1963 Dental X-Ray: Full Mouth 1963 FIT DNA/Cologuard 1963 FIT 1963 FOBT 1963 Sigmoidoscopy 1963 Diabetes: Foot Exam 1973 Eye Exam 1973 Pap Smear 1984 HPV/Cotest 1993 RSV Patients and Patients Aged 60 years or older (1 - Risk 60-74 years 1-dose series) 2023 Mammogram 02/10/2024 02/09/2023, 02/08/2019 Diabetes: Hemoglobin A1C 12/18/2024 025, 09/04/2024, 04/18/2024, Additional history exists Influenza Vaccine (#1) 2025 , 05/05/2023, 04/28/2022, Additional history exists Postponed from 03/26/2024 (Patient Refused) Alcohol/Substance Use Screening 03/03/2025 03/03/2024 Depression Screening 03/03/2025 03/03/2024, 03/03/20 SDOH Screening 03/03/2025 03/03/2024 COVID-19 Vaccine ( season) 2025 12/08/2022, 08/06/2021, 12/03/2020, Additional history exists Postponed from 03/26/2024 (Patient Refused) Diabetes: Urine Protein Screening 09/18/2025 09/18/2024, 04/05/2023, 03/11/2021, Additional history exists Lipid Panel 09/18/2025 09/18/2024, 03/26, 10/07/2021, Additional history exists Tobacco Screening 09/18/2025 09/18/2024 Colonoscopy 05/24/2027 05/24/2017 Colorectal Cancer Screening 05/24/2027 DTaP/Tdap/Td Vaccines (4 - Td or Tdap) 12/08/2032 12/08/2022, 07/09/2012, 04/07/2010, Additional history exists Hepatitis B Vaccines Completed 05/19/2018, 08/20/2017, 07/16/2017 Zoster Vaccines Completed 04/28/2022, 12/23/2021 Pneumococcal Vaccine: 50+ Years Completed 05/05/2022, 09/23/2016, 08/06/2000 Hepatitis C Screening Completed 10/16/2022, 022 HIV Screening Completed 09/18/2024, 09/24, 10/07/2021 Cervical Cancer Screening Discontinued HIB Vaccines Aged Out No longer eligi ble based on patient's age to complete this topic HPV Vaccines Aged Out No longer eligi ble based on patient's age to complete this topic Hepatitis A Vaccines Aged Out No long er eligible based on patient's age to complete this topic IPV Vaccines Aged Out No longer eligi ble based on patient's age to complete this topic Meningococcal Vaccine Aged Out No moe [place] eligible based on patient's age to complete this topic RSV under 20 months Aged Out No longe r eligible based on patient's age to complete this topic Rotavirus Vaccines Aged Out No longer eligible based on patient's age to complete this topic Procedures Procedure Name Priority Date/Time Associated Diagnosis Comments POCT GLYCATED HEMOGLOBIN, TOTAL Routine 09/20/2024 9:03 AM EST Type 2 diabetes mellitus without complication, with long-term current use of insulin ([facility]) POCT GLUCOSE Routine 09/20/2024 9:02 AM EST Type 2 diabetes mellitus without complication, with long-term current use of insulin ([facility]) ALBUMIN, RANDOM URINE W/CREATININE Routine 09/18/2024 11:31 AM EST Healthcare maintenance CBC WITH AUTO DIFFERENTIAL Routine 09/18/2024 11:22 AM EST Healthcare maintenance HIV 1/2 ANTIGEN/ANTIBODY, FOURTH GENERATION W/RFL Routine 09/18/2024 11:22 AM EST Healthcare maintenance RPR (MONITOR) W/REFL TITER Routine 09/18/2024 11:22 AM EST Healthcare maintenance COMPREHENSIVE METABOLIC PANEL Routine 09/18/2024 11:02 AM EST Healthcare maintenance TSH W/REFLEX TO FT4 Routine 09/18/2024 1 1:02 AM EST Healthcare maintenance LIPID PANEL, STANDARD Routine 09/18/2024 11:02 AM EST Healthcare maintenance POCT INFLUENZA B (ID NOW RAPID MOLECULAR) Routine 09/15/2024 1:18 PM EST Acute cough POCT INFLUENZA A (ID NOW RAPID MOLECULAR) Routine 09/15/2024 1:18 PM EST Acute cough POCT RAPID COVID ANTIGEN Routine 09/15/2024 1:18 PM EST Acute cough BASIC METABOLIC PANEL Routine 09/04/2024 11:40 AM EST HEMOGLOBIN A1C Routine 09/04/2024 11:40 AM EST CBC Routine 09/04/2024 11:40 AM EST MRSA NASAL SCREEN Routine 09/04/2024 10: 15 AM EST BI MAMMOGRAM SCREENING TOMOSYNTHESIS BILATERAL Routine 02/09/2023 11:07 AM EDT HEPATITIS C AB W/REFL TO HCV RNA, QN, PCR Routine 10/16/2022 12:26 PM EDT Routine health maintenance HM COLONOSCOPY Routine 05/24/2017 from Last 3 Months or Most Recently Relevant to Health Maintenance Results * (ABNORMAL) POCT A1C (09/20/2024 9:03 AM EST) Hemoglobin A1C 7.9(A) 4.0 - 6.0 % QC Media Lot # Comment:[id number] Lot# Expiration Date Comment:05/12/2026 Blood 09/20/2024 9:03 AM EST [facility] [employer] MANAGER POINT OF CARE TEST ENTER/EDIT ORDERABLES Final Result * (ABNORMAL) POCT glucose manually resulted (09/20/2024 9:02 AM EST) Glucose Blood, POC 256(A) 60 - 200 mg/dL QC Media Lot # Comment:[id number] Lot# Expiration Date Comment:01/25/2025 Blood Capillary blood specimen / Unknown 09/20/2024 9:02 AM EST [facility] POINT OF CARE TEST ENTER/EDIT ORDERABLES Final Result * Albumin, Random Urine W/Creatinine (09/18/2024 11:31 AM EST) Creatinine, Urine 65.49 mg/dL [facility] Microalbumin Urine 8.0 mg/L [facility] Microalbum Creatinine Ratio Ur 12.2 <30 ug/mg cr [facility] Comment:Albumin/Creatinine R atio Reference Ranges: Normal: < 30 ug/mg creatinine Microalbuminuria: 30 - 300 ug/mg creatinineClinical Albuminuria: > 300 ug/mg creatinine Urine 09/18/2024 11:3 1 AM EST 09/18/2024 2:41 PM EST Princess Min [facility] URINE ORDERABLES Final Res ult [facility] [address] [place] [phone] * (ABNORMAL) CBC auto differential (09/18/2024 11:22 AM EST) White Blood Count 8.1 4.8 - 10.8 X10*3/uL [facility] Red Blood Count 4.26 4.20 - 5.50 X10*6/uL [facility] Hemoglobin 12.9 12.0 - 16.0 g/dl [facility] Hematocrit 37.8 37.0 - 47.0 % [facility] Mean Corpuscular Volume 88.7 80.0 - 98.0 fL [facility] Mean Corpuscular Hemoglobin 30.3 27.0 - 33.0 pg [facility] Mean Corpuscular HGB Conc 34.1 31.0 - 35.0 g/dl [facility] Red Cell Distribution Width 12.9 11.0 - 16.0 % [facility] Platelet Count 247 160 - 400 X10*3/uL [facility] Mean Platelet Volume 10.7 9.4 - 12.3 fL [facility] Neutrophils Percent Auto 67.4 45 - 73 % [facility] Imm Gran Pct Auto 1.7(H) 0.0 - 0.4 % [facility] Lymphocytes Percent Auto 24.5 20 - 40 % [facility] Monocytes Percent Auto 5.3 2 - 11 % [facility] Eosinophils Percent Auto 0.6 0 - 4 % [facility] Basophils Percent Auto 0.5 0 - 2 % [facility] NRBC Pct Auto 0.0 0.0 - 0.2 /100WBC [facility] Neutrophils Absolute Auto 5.5 2.0 - 8.3 x10*3/uL [facility] Imm Gran Abs Auto 0.14(H) 0.00 - 0.03 X10*3/uL [facility] Lymphocytes Absolute Auto 2.0 1.2 - 4.9 X10*3/uL [facility] Monocytes Absolute Auto 0.4 0.1 - 1.2 X10*3/uL [facility] Eosinophils Absolute Auto 0.1 0.0 - 0.4 X10*3/uL [facility] Basophils Absolute Auto 0.0 0.0 - 0.2 X10*3/uL [facility] NRBC Abs Auto 0.000 0.0 - 0.012 X10*3/uL [facility] Blood Venous blood specimen / Unknown 09/18/2024 11:22 AM EST 09/18/2024 2:41 PM EST us Princess Min [employer] LAB BLOOD ORDERABLES Final Res ult [facility] [address] [place] [phone] * HIV-1/2 Antigen and Antibodies, Fourth Generation, with Reflexes (09/18/2024 11:22 AM EST) HIV AB/AG Nonreactive Nonreactive [facility] Comment:HIV-1 p24 Ag and/or HIV-1/HIV-2 Ab not detected.A test result that is nonreactive does not exclude thepossibility of exposure to or infection with HIV-1 and/orHIV-2. Nonreactive results in this assay for individualswith prior exposure to HIV-1 and/or HIV-2 may be due toantigen and antibody levels that are below the limit ofdetection of this assay.The [employer] HIV Ag/Ab Combo assay result andsupplemental assay results should be interpreted inconjunction with the patient's clinical presentation,history and other laboratory results. If the results areinconsistent with clinical evidence, additional testing issuggested to confirm the result. Blood Venous blood specimen / Unknown 09/18/2024 11:22 AM EST 09/18/2024 2:41 PM EST us Princess Min [facility] LAB BLOOD ORDERABLES Final Res ult Performing Organization Address City/[facility]/ZIP Co de Phone Number [facility] [address] [place] [phone] * TSH with Reflex to Free T4 (09/18/2024 11:02 AM EST) TSH reflex Free T4 0.97 0.32 - 4.0 uIU/mL [facility] Blood 09/18/2024 11:0 2 AM EST 09/18/2024 2:41 PM EST Princess Mechelle [facility] BLOOD ORDERABLES Final Res ult Performing Organization Address City/[facility]/ZIP Co de Phone Number [facility] [address] [place] [phone] * Lipid Panel, Standard (09/18/2024 11:02 AM EST) Triglycerides 136 <150 mg/dL [facility] Comment:Desirable Triglyceri de: less than 150 mg/dLBorderline High Triglyceride 150-199 mg/dLHigh Triglyceride: 200-499 mg/dLVery High Triglyceride: greater than or equal to 5OO mg/dL Cholesterol 156 <200 mg/dL [facility] Comment:Desirable Cholestero l: less than 200 mg/dLBorderline High Cholesterol: 200-239 mg/dLHigh Cholesterol: greater than 239 mg/dL LDL Cholesterol Calculated 75 <100 mg/dL [facility] Comment:Desirable LDL: less than 100 mg/dLNear Optimal/Above Optimal LDL: 110- 129 mg/dLBorderline High LDL: 130-159 mg/dLHigh LDL: 160-189 mg/dLVery High LDL: greater than or equal to 190 mg/dL HDL Cholesterol 54 >40 mg/dL [facility] Comment:Desirable HDL: great er than 40 mg/dL Note: This HDL assay may give artificially low results in patients with liver disease. Blood Venous blood specimen / Unknown 09/18/2024 11:02 AM EST 09/18/2024 2:41 PM EST us Princess Min [employer] LAB BLOOD ORDERABLES Final Res ult [facility] [address] [place] [phone] * (ABNORMAL) Comprehensive Metabolic Panel (09/18/2024 11:02 AM EST) Sodium 139 135 - 145 mmol/L [facility] Potassium 4.0 3.3 - 5.1 mmol/L [facility] Comment:Slight Hemolysis.Int erpret result with caution. Chloride 106 96 - 108 mmol/L [facility] Carbon Dioxide 24 22 - 29 mmol/L [facility] Anion Gap 13 12 - 20 [facility] Urea Nitrogen (BUN) 17(H) 9 - 16 mg/dL [facility] Creatinine, Serum 0.89 0.5 - 1.4 mg/dL [facility] Estimated Glomerular Filt Rate >60 [facility] Comment:Chronic Kidney Disea se: Estimated GFR < 60 mL/min/1.94k4Tyeqnl Kidney Disease: Estimated GFR < 15 mL/min/1.73m2 Glucose 255(H) 60 - 115 mg/dL [facility] Calcium 9.0 8.4 - 10.2 mg/dL [facility] Bilirubin, Total 0.4 0.0 - 1.0 mg/dL [facility] Aspartate Amino Transferase 17 5 - 31 U/L [facility] Comment:Slight Hemolysis.Int erpret result with caution. Alanine Aminotransferase 27 0 - 31 U/L [facility] Total Protein 7.5 6.5 - 8.0 g/dL [facility] Albumin Level 3.9 3.5 - 5.0 g/dL [facility] Alkaline Phosphatase 104 39 - 117 U/L [facility] Blood Venous blood specimen / Unknown 09/18/2024 11:02 AM EST 09/18/2024 2:41 PM EST Princess Min [employer] LAB BLOOD ORDERABLES Final Res ult Performing Organization Address [facility]/ZIP Co de Phone Number [facility] [address] [place] [phone] * Influenza B (ID NOW Rapid Molecular) (09/15/2024 1:18 PM EST) [facility] Influenza B Negative Negative, Indeterminate [facility] Swab 09/15/2024 1:18 PM EST Alvaro Rocha MD POINT OF CARE TEST ENTER/EDIT OR DERABLES Final Result Performing Organization Address [facility] Co de Phone Number [facility] [address] [place] [phone] * Influenza A (ID NOW Rapid Molecular) (09/15/2024 1:18 PM EST) [facility] Influenza A Negative Negative, Indeterminate [facility] Swab 09/15/2024 1:18 PM EST us John Name POINT OF CARE TEST ENTER/EDIT OR DERABLES Final Result Performing Organization Address [facility]/ZIP Co de Phone Number [facility] [address] [place] [phone] * POCT Rapid COVID Ag (09/15/2024 1:18 PM EST) Pathologist [facility] Rapid COVID Ag Negative [facility] Swab 09/15/2024 1:18 PM EST us John Name POINT OF CARE TEST ENTER/EDIT OR DERABLES Final Result Performing Organization Address [facility] de Phone Number [facility] [address] [place] [phone] [phone] * CBC (09/04/2024 11:40 AM EST) [facility] White Blood Count 5.8 4.8 - 10.8 X10*3/uL [facility] Red Blood Count 4.27 4.20 - 5.50 X10*6/uL [facility] Hemoglobin 13.1 12.0 - 16.0 g/dl [facility] Hematocrit 39.7 37.0 - 47.0 % [facility] Mean Corpuscular Volume 93.0 80.0 - 98.0 fL [facility] Mean Corpuscular Hemoglobin 30.7 27.0 - 33.0 pg [facility] Mean Corpuscular HGB Conc 33.0 31.0 - 35.0 g/dl [facility] Red Cell Distribution Width 13.2 11.0 - 16.0 % [facility] Platelet Count 182 160 - 400 X10*3/uL [facility] Mean Platelet Volume 10.3 9.4 - 12.3 fL [facility] NRBC Pct Auto 0.0 0.0 - 0.2 /100WBC [facility] NRBC Abs Auto 0.000 0.0 - 0.012 X10*3/uL [facility] 09/04/2024 11:4 0 AM EST 09/04/2024 11:40 AM EST Generic External Data Provider LAB BLOOD ORDERAB LES Final Result Performing Organization Address [facility] Co de Phone Number [facility] [address] [place] [phone] * (ABNORMAL) Hemoglobin A1c (09/04/2024 11:40 AM EST) Hemoglobin A1c 6.4(H) <6.0 % [facility] Comment:Hemoglobin A1C Refer ence Range Adults: 4.8 - 6.0 % Non diabetic: < 6.0 % Goal: < 7.0 %Additional Action Suggested: > 8.0 %Note: Hemoglobin A1c results are invalid for patients with abnormal amounts of HbF. Blood transfusions may impact the HbA1c concentration in the patient sample. Estimated Average Glucose 137 mg/dL [facility] Comment:eAG = Estimated ave rage glucose which is %A1C expressed asaverage glucose, using the formula of the Q7T-CanlpbaMtxsopq Glucose study (ADAG), Diabetes Care, Vol.31,#8,Feb. 2007 09/04/2024 11:4 0 AM EST 09/04/2024 11:40 AM EST Generic External Data Provider LAB BLOOD ORDERAB LES Final Result Performing Organization Address [facility] Co de Phone Number [facility] [address] [place] [phone] * (ABNORMAL) Basic Metabolic Panel (09/04/2024 11:40 AM EST) Sodium 142 135 - 145 mmol/L [facility] Potassium 3.9 3.3 - 5.1 mmol/L [facility] Comment:Slight Hemolysis.Int erpret result with caution. Chloride 111(H) 96 - 108 mmol/L [facility] Carbon Dioxide 25 22 - 29 mmol/L [facility] Anion Gap 10(L) 12 - 20 [facility] Urea Nitrogen (BUN) 10 9 - 16 mg/dL [facility] Creatinine, Serum 0.79 0.5 - 1.4 mg/dL [facility] Creatinine Clr Calc Pharmacy 82.5 [facility] Comment:Provided height and weight: 154.94 cm,102.965 kg.eGFR (calculated from the MDRD study equation) and eCrCl(calculated from the Cockcroft-Gault equation) are based ondifferent parameters and may not yield comparable results.If eCrCl result is absurd, please check patient'sheight/weight. Estimated Glomerular Filt Rate >60 [facility] Comment:Chronic Kidney Disea se: Estimated GFR < 60 mL/min/1.16p1Lywrnc Kidney Disease: Estimated GFR < 15 mL/min/1.73m2 Glucose 67 60 - 115 mg/dL [facility] Calcium 8.8 8.4 - 10.2 mg/dL [facility] 09/04/2024 11:4 0 AM EST 09/04/2024 11:40 AM EST Generic External Data Provider LAB BLOOD ORDERAB LES Final Result [facility] [address] [place] [phone] * (ABNORMAL) MRSA Nasal Screen (09/04/2024 10:15 AM EST) MRSA Nasal PCR NEGATIVE Negative [facility] SA Nasal PCR POSITIVE(A) Negative [facility] MRSA Interpretation SEE NOTE [facility] Comment:MRSA target DNA not detected; SA target DNA detected.A MRSA NEGATIVE, SA POSITIVE test result does not precludeMRSA nasal colonization. 09/04/2024 10:1 5 AM EST 09/04/2024 11:20 AM EST us Generic External Data Provider LAB MICROBIOLOGY - GENERAL ORDERABLES Final Result [facility] [address] [place] [phone] * BI Mammogram Screening Tomosynthesis Bilateral (02/09/2023 11:07 AM EDT) Anatomical Region Laterality Modality Breast Bilateral Mammography 02/09/2023 11:0 7 AM EDT Narrative 03/05/2023 6:25 AM EDT ? [facility] [place] ? [address] ?[place] [address] ? Mammography Report ? Signed ? Patient: Jose OliverArgelia ?MR#: [id number] ?? [id number] ? : 1965 ?Acct:[id number] ? Age/Sex: 57 / F ?ADM Date: 02/09/23 ? Loc: HO.MAMMO ? Attending Dr: Princess Min [employer] MANAGER ? Ordering Physician: Mechelle,Princess [employer] MANAGER ?Results: ? Date of Service: 02/09/23 ?Follow Up: ? Procedure(s): MM tomosynthesis screening BI ?? Accession Number(s): [id number] ? cc: Princess Min [employer] MANAGER ? EXAMINATION: ?? MM SCREENING DIGITAL BREAST TOMOSYNTHESIS, BILATERAL ? CLINICAL INFORMATION: ? Screening. Asymptomatic. ? The lifetime risk of breast cancer based on the Tyrer-Cuzick Model is ?? 7.6%. ? COMPARISON: ?? Mammography: This study is compared with prior exams dating back to ?? 2015. ? TECHNIQUE: ?? Digital breast tomosynthesis is performed in both the craniocaudal and ?? mediolateral oblique views along with computer-aided detection (CAD). ?? Synthesized 2D images are generated from the tomosynthesis. ? FINDINGS: ?? There are scattered areas of fibroglandular density (ACR BI-RADS breast ?? composition Category b). ? There are no significant masses, abnormal calcifications, or other ?? abnormalities. ?? There is a tissue marker present in the left breast from prior benign ?? stereotactic biopsy. ? MM/MM tomosynthesis screening BI ?? IMPRESSION: ?? No mammographic evidence of malignancy. ? ASSESSMENT: ? BI-RADS BI-RADS 2 - Benign Findings ? RECOMMENDATION: ?? Routine annual mammography screening. ? 1 year F/U ? This examination should not preclude the clinical evaluation of a ?? suspicious palpable abnormality. ? This patient's information was entered into a reminder system with a ?? target due date for their next mammogram. ? Dictated By: ?Margo Shankar MD ? Signed By: ?<Electronically signed by Margo Shankar MD in OV> ? 03/05/23622 ? DD/ 06 ? TD/TT: ? Sub Acute Care Nurse: ? Procedure Note Sherin Webb - 03/05/2023 [facility] [address] [place] [address] Dr. [place], [place] [address] Mammography Report Signed Patient: Nini Messina#: [id number] : 1965Acct:[id number] Age/Sex: 57 / FADM Date: 02/09/23 Loc: [facility] Attending Dr: Princess Min [employer] MANAGER Ordering Physician: Princess Min FNPResults: Date of Service: 02/09/23Follow Up: Procedure(s): MM tomosynthesis screening BI Accession Number(s): [id number] cc: Princess Min [employer] MANAGER EXAMINATION: MM SCREENING DIGITAL BREAST TOMOSYNTHESIS, BILATERAL CLINICAL INFORMATION: Screening. Asymptomatic. The lifetime risk of breast cancer based on the Tyrer-Cuzick Model is 7.6%. COMPARISON: Mammography: This study is compared with prior exams dating back to 2016. TECHNIQUE: Digital breast tomosynthesis is performed in both the craniocaudal and mediolateral oblique views along with computer-aided detection (CAD). Synthesized 2D images are generated from the tomosynthesis. FINDINGS: There are scattered areas of fibroglandular density (ACR BI-RADS breast composition Category b). There are no significant masses, abnormal calcifications, or other abnormalities. There is a tissue marker present in the left breast from prior benign stereotactic biopsy. MM/MM tomosynthesis screening BI IMPRESSION: No mammographic evidence of malignancy. ASSESSMENT: BI-RADS BI-RADS 2 - Benign Findings RECOMMENDATION: Routine annual mammography screening. 1 year F/U This examination should not preclude the clinical evaluation of a suspicious palpable abnormality. This patient's information was entered into a reminder system with a target due date for their next mammogram. Dictated By: Margo Shankar MD Signed By: <Electronically signed by Margo Shankar MD in OV> 03/05/23 0623 DD/ 1107 TD/TT: Sub Acute Care Nurse: Princess Colemanida [employer] MANAGER IMG BI PROCEDURES Final Result * Hepatitis C Antibody with Reflex to HCV, RNA, Quantitative, Real-Time PCR (10/16/2022 12:26 PM EDT) Hepatitis C Antibody NON-REACT MOOSE NON-REACT MOOSE Why Not Give Back Index 0.04 <1.00 Why Not Give Back Comment: HCV antibody was non-reactive. There is no laboratory evidence of HCV infection. In most cases, no further action is required. However, if recent HCV exposure is suspected, a test for HCV RNA (test code 13169) is suggested. For additional information please refer to http://education.[employer]/faq/JNU13q4 (This link is being provided for informational/ educational purposes only.) Blood Venous blood specimen / Unknown 10/16/2022 12:26 PM EDT 10/16/2022 12:27 PM EDT Narrative [facility] - 10/19/2022 7:22 PM EDT FASTING:YES FASTING: YES Princess Min [employer] MANAGER LAB BLOOD ORDERABLES Final Res ult [facility] [address], [place] [address] [facility] [address] [place] [address] * Colonoscopy (05/24/2017) [facility] Signature Colonoscopy Normal Normal Historical Provider MD HEALTH MAINTENANCE Final Result from Last 3 Months or Most Recently Relevant to Health Maintenance Insurance [facility] [place] [id number] [place] [id number] [place] * Guarantor: Zaid Messinal Account Type Relation to Patient Date of Phone Billing Address Personal/Family Self [address] Care Teams Tour Guide Relationship Specialty Start Date End Date Princess Min FNP [address] [place] [address] [place] PCP - General Family Medicine 02/10/24
--- OUTSIDE RECORDS SUMMARY | 2024-09-20 11:44 | XMS_ITS | Encounter Summary ---
Author Organization [employer] [employer] Address [address] [facility] [place] [address] Care Team Providers Care Private Client Advisor Name Role Phone Princess Min Primary Care Provider [phone] Princess Min Primary Care Provider [phone] Princess Min Primary Care Provider [phone] Reason for Visit * Reason Onset Date Comments PT1 04/27/2023 Encounter Details Date Type Department Care Team (Late st Contact Info) Description 04/27/2023 Telephone [facility] [address] [place] [address] Princess Min FNP [address] [place], [place] [phone] PT1 Social History Tobacco Use Types Packs/Day Years Used Date Smoking Tobacco: Some Days Cigarettes Smokeless Tobacco: Never Alcohol Use Standard Drinks/Week Comments Not Currently 0 (1 standard drink = 0.6 oz pur e alcohol) Occasionally Depression Answer Date Recorded Patient Health Questionnaire-9 Score 10 02/05/2023 Depression Answer Date Recorded Patient Health Questionnaire-2 Score 2 02/05/2023 Comments Unknown Sex and Gender Information Value Date Recorded Sex Assigned at Female 05/25/2022 10:15 AM EDT Legal Sex Female 10:15 AM EDT Gender Identity Female 05/25/2022 10:15 AM EDT Sexual Orientation Straight 05/25/2022 10 :15 AM EDT documented as of this encounter Miscellaneous Notes * Telephone Encounter - Nohemy Ahumada - 05/10/2023 8:51 AM EDT Called patient. 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 * Telephone Encounter - Barbie Montanez - 04/28/2023 3:58 PM EDT PT-1 submitted for patient. They will receive a letter of approval or denial in the mail. 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 Wheelchair: no documented in this encounter Plan of Treatment Not on file documented as of this encounter Visit Diagnoses Not on filedocumented in this encounter Additional Health Concerns Assessment Noted Time PHQ-9 Depression Total Score: 10 023 10:39 AM EDT documented as of this encounter Care Teams Private Client Advisor Relationship Specialty Start Date End Date Princess Min FNP [address] [place] [address] PCP - General Family Medicine 03/20/22 12/26/23 Princess Min FNP [address] [place] [address] PCP - General Family Medicine 01/21/24 02/03/24 Princess Min FNP [address] [place] [address] PCP - General Family Medicine 02/10/24 documented as of this encounter
--- OUTSIDE RECORDS SUMMARY | 2024-09-20 11:44 | XMS_ITS | Encounter Summary ---
Author Organization [employer] Address [address] [facility] 7t [place] [address] Care Team Providers Care Medical Services Assistant Name Role Phone Princess Min DIRECTOR FOUNDATION Primary Care Provider [phone] Reason for Visit * Reason Comments Cough Encounter Details Date Type Department Care Team ([facility] st Contact Info) Description 09/15/2024 1:20 PM EST Office Visit [facility] [address] [place] [address] Name, MD Alvaro [address] [place] [address] Acute cough (Primary Dx); Wheezing; Nasal congestion; Moderate persistent asthma without complication Social History Tobacco Use Types Packs/Day Years [...] AM EDT documented as of this encounter Last Filed Vital Signs Vital Sign Reading Time Taken Comments Blood Pressure 106/78 09/15/2024 12:58 PM EST Pulse 75 09/15/2024 12:58 PM EST Temperature 36.8 ??C (98.2 ??F) 09/15/2024 12:[address] Respiratory Rate 18 09/15/2024 12:58 PM EST Oxygen Saturation 98% 09/15/2024 12:58 PM EST Inhaled Oxygen Concentration - - Weight 102 kg (224 lb 9.6 oz) 09/15/2024 12:58 P M EST Height - - Body Mass Index 42.44 05/26/2024 11:47 AM EDT documented in this encounter Progress Notes * Alvaro Rocha MD - 09/15/2024 1:20 PM EST Subjective Patient ID: Argelia Oliver is a 59 y.o. female who presents for Cough. Patient comes for a sick visit. She has a personal history of asthma. She complains of respiratory symptoms since Wednesday. The patient describes cough, wheezing, dyspnea on exertion, runny nose and chills. She denies significant sore throat or myalgia. She has been using her albuterol several times a day. She ran out of Asmanex at home. She has personal history of diabetes. Her blood sugar has been well-controlled. She speaks in full sentences and is no coughing Lab Results Component Value Date HGBA1C 6.4 (H) 09/04/2024 Review of Systems Constitutional: Positive for chills. HENT: Positive for rhinorrhea. Respiratory: Positive for cough, shortness of breath and wheezing. Cardiovascular: Negative for chest pain and palpitations. Visit Vitals BP 106/78 (BP Location: Left arm, Patient Position: Sitting, BP Cuff Size: Large adult) Pulse 75 Temp 98.2 ??F (36.8 ??C) (Temporal) Resp 18 Wt 224 lb 9.6 oz (102 kg) SpO2 98% BMI 42.44 kg/m?? Smoking Status Every Day BSA 2.09 m?? Objective Physical Exam Constitutional: General: She is not in acute distress. Appearance: She is obese. She is not toxic-appearing. Cardiovascular: Rate and Rhythm: Normal rate and regular rhythm. Pulmonary: Effort: Pulmonary effort is normal. Breath sounds: Wheezing and rhonchi present. No rales. Assessment/Plan Diagnoses and all orders for this visit: Acute cough Comments: Patient symptoms are consistent with asthma exacerbation secondary to viral URI. Rapid testing for flu and COVID was negative. I recommend to continue daily Asmanex, continue rescue Ventolin, and will prescribe a short course of prednisone. She is encouraged to call or come back if not much better by next week. I refilled her melatonin at her request. Wheezing Nasal congestion Moderate persistent asthma without complication Other orders - Mometasone Furoate (Asmanex HFA) 200 MCG/ACT aerosol; INHALE 1 PUFF BY MOUTH TWICE DAILY. RINSE MOUTH AFTER USING. - melatonin 5 MG tablet; Take 1 tablet (5 mg) by mouth at bedtime. documented in this encounter Plan of Treatment Not on file documented as of this encounter Procedures Procedure Name Priority Date/Time Associated Diagnosis Comments POCT INFLUENZA B (ID NOW RAPID MOLECULAR) Routine 09/15/2024 1:18 PM EST Acute cough POCT INFLUENZA A (ID NOW RAPID MOLECULAR) Routine 09/15/2024 1:18 PM EST Acute cough POCT RAPID COVID ANTIGEN Routine 09/15/2024 1:18 PM EST Acute cough documented in this encounter Results * Influenza B (ID NOW Rapid Molecular) (09/15/2024 1:18 PM EST) Influenza B Negative Negative, Indeterminate [facility] Swab 09/15/2024 1:18 PM EST us Alvaro Rocha MD POINT OF CARE TEST ENTER/EDIT OR DERABLES Final Result Performing Organization Address [facility]/ZIP Co de Phone Number [facility] [address] [place] [phone] * Influenza A (ID NOW Rapid Molecular) (09/15/2024 1:18 PM EST) Pathologist [facility] Influenza A Negative Negative, Indeterminate [facility] Swab 09/15/2024 1:18 PM EST us Alvaro Rocha MD POINT OF CARE TEST ENTER/EDIT OR DERABLES Final Result Performing Organization Address [facility] Co de Phone Number [facility] [address] [place] [phone] * POCT Rapid COVID Ag (09/15/2024 1:18 PM EST) Rapid COVID Ag Negative [facility] Swab 09/15/2024 1:18 PM EST us Alvaro Rocha MD POINT OF CARE TEST ENTER/EDIT OR DERABLES Final Result Performing Organization Address [facility] Co de Phone Number [facility] [address] [place] [phone] documented in this encounter Visit Diagnoses Diagnosis Acute cough- Primary Wheezing Nasal congestion Other diseases of nasal cavity and sinuses Moderate persistent asthma without complication documented in this encounter Additional Health Concerns Assessment Noted Time PHQ-9 Depression Total Score: 3 03/03/20 24 11:33 AM EDT documented as of this encounter Care Teams Medical Services Assistant Relationship Specialty Start Date End Date Princess Min FNP [address] [place] [address] PCP - General Family Medicine 02/10/24 documented as of this encounter
--- OUTSIDE RECORDS SUMMARY | 2024-09-20 11:44 | XMS_ITS | Encounter Summary ---
Author Organization [employer] Address [address] [facility] 7t [place] [address] Care Team Providers Care Habilitation Specialist Name Role Phone Princess Min Primary Care Provider [phone] Reason for Visit * Reason Onset Date Comments Med Refill 07/13/2024 Encounter Details Date Type Department Care Team (Late st Contact Info) Description 07/13/2024 Telephone [facility] [address] [place] [address] Princess Min FNP [address] [place], [place] [phone] Med Refill Social History Tobacco Use Types [...] * Telephone Encounter - BIANCA Arboleda - 07/13/2024 7:46 PM EST She is not on YARN EXAMINER SKEINS, would need appt to discuss pain control. If primarily related to ortho conditions, I would recommend following up her orthopedic doctor first. Thanks! * Telephone Encounter - Alexandria Jama RN - 07/13/2024 12:51 PM EST Can you please see message below and advise. [facility] show refill of Tramadol 50mg qty 28 on 02/21/24. Pt gets monthly clonazepam 0.5mg tid. * Telephone Encounter - Taran Osorio - 07/13/2024 11:39 AM EST Tc from pt requesting call back to discuss oxyCODONE (Roxicodone) 5 MG immediate release tablet. Ptstates the acetaminophen is not helping her and wants to take something stronger for the pain. Please contact pt at [phone]. documented in this encounter Plan of Treatment Not on file documented as of this encounter Visit Diagnoses Not on filedocumented in this encounter Additional Health Concerns Assessment Noted Time PHQ-9 Depression Total Score: 3 03/03/20 24 11:33 AM EDT documented as of this encounter Care Teams Habilitation Specialist Relationship Specialty Start Date End Date Princess Min FNP [address] [place] [address] PCP - General Family Medicine 02/10/24 documented as of this encounter
--- OUTSIDE RECORDS SUMMARY | 2024-09-20 11:44 | XMS_ITS | Encounter Summary ---
Author Organization [employer] Address [address] [facility] 7t [place] [address] Care Team Providers Care Psychiatrist Name Role Phone Princess Min Primary Care Provider [phone] Reason for Visit * Reason Comments Med Refill Encounter Details Date Type Department Care Team ([facility] st Contact Info) Description 09/11/2024 Refill [facility] [address] [place] [address] Princess Min FNP [address] [place], [place] [phone] Other migraine without status migrainosus, not intractable Social History Tobacco Use Types Packs/Day Years [...] as of this encounter Visit Diagnoses Diagnosis Other migraine without status migrainosus, not intractable documented in this encounter Additional Health Concerns Assessment Noted Time PHQ-9 Depression Total Score: 3 03/03/20 24 11:33 AM EDT documented as of this encounter Care Teams Psychiatrist Relationship Specialty Start Date End Date Princess Min FNP [address] [place] [address] PCP - General Family Medicine 02/10/24 documented as of this encounter
--- OUTSIDE RECORDS SUMMARY | 2024-09-20 11:44 | XMS_ITS | Encounter Summary ---
Author Organization [employer] Address [address] [facility] 7t [place] [address] Care Team Providers Care Patient Accounts Clerk Name Role Phone Princess Min Primary Care Provider [phone] Reason for Visit * Reason Onset Date Comments Med Refill 09/14/2024 Encounter Details Date Type Department Care Team (Late st Contact Info) Description 09/14/2024 Refill [facility] [address] [place] [address] Princess Min FNP [address] [place], [place] [phone] Other migraine without status migrainosus, not intractable [...] encounter Miscellaneous Notes * Telephone Encounter - Cherie Montanez - 09/14/2024 3:17 PM EST TC from pt requesting medication refill. Medications needing refill : albuterol (2.5 MG/3ML) 0.083% nebulizer solution amitriptyline (Elavil) 50 MG tablet Asmanex HFA 200 MCG/ACT aerosol topiramate (Topamax) 200 MG tablet ammonium lactate (Lac-Hydrin) 12 % lotion To be sent to: [facility] - [place], [place] - [address] [place] [address] documented in this encounter Plan of Treatment Not on file documented as of this encounter Visit Diagnoses Diagnosis Other migraine without status migrainosus, not intractable documented in this encounter Additional Health Concerns Assessment Noted Time PHQ-9 Depression Total Score: 3 03/03/20 24 11:33 AM EDT documented as of this encounter Care Teams Patient Accounts Clerk Relationship Specialty Start Date End Date Princess Min FNP [address] [place] [address] PCP - General Family Medicine 02/10/24 documented as of this encounter
--- OUTSIDE RECORDS SUMMARY | 2024-09-20 11:44 | XMS_ITS | Encounter Summary ---
Author Organization [employer] Address [address] [facility] 7t [place] [address] Care Team Providers Care Chocolate Production Machine Operator Name Role Phone Princess Min Primary Care Provider [phone] Reason for Visit * Reason Comments Med Refill Encounter Details Date Type Department Care Team ([facility] st Contact Info) Description 09/12/[address] [facility] MEDICINE [address] [place] [address] Princess Min FNP [address] [place], [place] [phone] Major depressive disorder, recurrent, moderate (CMS/HCC); Anxiety disorder, unspecified Social History Tobacco Use Types Packs/Day Years [...] as of this encounter Visit Diagnoses Diagnosis Major depressive disorder, recurrent, moderate (CMS/HCC) Major depressive disorder, recurrent episode, moderate Anxiety disorder, unspecified documented in this encounter Additional Health Concerns Assessment Noted Time PHQ-9 Depression Total Score: 3 03/03/20 24 11:33 AM EDT documented as of this encounter Care Teams Chocolate Production Machine Operator Relationship Specialty Start Date End Date Princess Min FNP [address] [place] [address] PCP - General Family Medicine 02/10/24 documented as of this encounter
--- OUTSIDE RECORDS SUMMARY | 2024-09-20 11:44 | XMS_ITS | Encounter Summary ---
Author Organization [employer] Address [address] [facility] 7t [place] [address] Care Team Providers Care Manager Target Name Role Phone Princess Min Primary Care Provider [phone] Princess Min Primary Care Provider Reason for Visit * Reason Comments Med Change Request Encounter Details Date Type Department Care Team ([facility] Contact Info) Description 12/28/2023 Refill [facility] PEDS [address] [place], [place] [phone] Princess Min FNP [address] [place], [place] [phone] Social History Tobacco Use Types Packs/Day Years [...] as of this encounter Care Teams Manager Target Relationship Specialty Start Date End Date Princess Min FNP [address] [place] [address] PCP - General Family Medicine 01/21/24 02/03/24 Princess Min FNP [address] [place] [address] PCP - General Family Medicine 02/10/24 documented as of this encounter
--- OUTSIDE RECORDS SUMMARY | 2024-09-20 11:44 | XMS_ITS | Encounter Summary ---
Author Organization [employer] Address [address] [facility] 7t [place] [address] Care Team Providers Care Pharmacy Technician Infusion Name Role Phone Princess Min Primary Care Provider Reason for Visit * Reason Comments Med Refill Encounter Details Date Type Department Care Team ([facility] st Contact Info) Description 09/15/2024 Refill [facility] MED[facility]INE [address] [place] [address] Princess Min FNP [address] [place], [place] [phone] Social History Tobacco Use Types Packs/Day Years [...] documented as of this encounter Care Teams Pharmacy Technician Infusion Relationship Specialty Start Date End Date Princess Min FNP [address] [place] [address] PCP - General Family Medicine 02/10/24 documented as of this encounter
--- OUTSIDE RECORDS SUMMARY | 2024-09-20 11:44 | XMS_ITS | Encounter Summary ---
Author Organization [employer] Address [address] [facility] [address] 7[address] [place] [address] Care Team Providers Care Timber Feller Name Role Phone Princess Min HOUSE CLEANER Primary Care Provider [phone] Encounter Details Date Type Department Care Team (Latest Contact Info) Description 09/18/2024 Travel Social History Tobacco Use Types Packs/Day Years [...] documented as of this encounter Care Teams Timber Feller Relationship Specialty Start Date End Date Princess Min FNP [address] [place] [address] PCP - General Family Medicine 02/10/24 documented as of this encounter
--- OUTSIDE RECORDS SUMMARY | 2024-09-20 11:44 | XMS_ITS | Encounter Summary ---
Author Organization [employer] Address [address] [facility] 7t [place] [address] Care Team Providers Care Ceo Ziff Davis Name Role Phone Princess Min INBOUND CALL CENTER AGENT Primary Care Provider [phone] Reason for Visit * Reason Onset Date Comments Chart Prep 09/14/2024 Encounter Details Date Type Department Care Team (Late st Contact Info) Description 09/14/2024 Telephone [facility] PEDS [address] [place], [place] [phone] Abdifatah Martinez [place] Chart Prep Social History Tobacco Use Types Packs/Day Years [...] your housing situation today? I have kermit anupama 03/03/[address] you li [...] encounter Miscellaneous Notes * Telephone Encounter - Abdifatah Atwood [place] - 09/14/2024 11:00 AM EST Chart Prep Labs: done Images: done Vaccines due: yes Referrals: pending appt Screenings: colonoscopy , mammogram , pap smear , Foot Exam, Urine Protein, Lipid Panel Overdue care gaps: Glucose documented in this encounter Plan of Treatment Not on file documented as of this encounter Visit Diagnoses Not on filedocumented in this encounter Additional Health Concerns Assessment Noted Time PHQ-9 Depression Total Score: 3 03/03/20 24 11:33 AM EDT documented as of this encounter Care Teams Ceo Ziff Davis Relationship Specialty Start Date End Date Princess Min FNP [address] [place] [address] PCP - General Family Medicine 02/10/24 documented as of this encounter
--- OUTSIDE RECORDS SUMMARY | 2024-09-20 11:44 | XMS_ITS | Encounter Summary ---
Author Organization [employer] Address [address] [facility] [address] 7[address] [place] [address] Care Team Providers Care Naval Inspector Name Role Phone Princess Min ORCHARD MANAGER Primary Care Provider [phone] Encounter Details Date Type Department Care Team (Latest Contact Info) Description 09/20/2024 Travel Social History Tobacco Use Types Packs/Day [...] documented as of this encounter Care Teams Naval Inspector Relationship Specialty Start Date End Date Pricness Min FNP [address] [place] [address] PCP - General Family Medicine 02/10/24 documented as of this encounter
--- OUTSIDE RECORDS SUMMARY | 2024-09-20 11:44 | XMS_ITS | Encounter Summary ---
Author Organization [employer] Address [address] [facility] 7t [place] [address] Care Team Providers Care Tax Director Name Role Phone Princess Min ASSOCIATE CIVIL ENGINEER Primary Care Provider [phone] Encounter Details Date Type Department Care Team (Late st Contact Info) Description 09/04/2024 Orders Only GENERIC EXTERNAL DATA DEPARTMENT Provider, Generic External Data Social History Tobacco Use Types Packs/Day Years [...] Procedure Name Priority Date/Time Associated Diagnosis Comments CBC Routine 09/04/2024 11:40 AM EST HEMOGLOBIN A1C Routine 09/04/2024 11:40 AM EST BASIC METABOLIC PANEL Routine 09/04/2024 11:40 AM EST MRSA NASAL SCREEN Routine 09/04/2024 10: 15 AM EST documented in this encounter Results * (ABNORMAL) Basic Metabolic Panel (09/04/2024 11:40 AM EST) Sodium 142 135 - 145 mmol/L [facility] Potassium 3.9 3.3 - 5.1 mmol/L [facility] Comment:Slight Hemolysis.Int erpret result with caution. Chloride 111(H) 96 - 108 mmol/L [facility] Carbon Dioxide 25 22 - 29 mmol/L [facility] Anion Gap 10(L) 12 - 20 [facility] Urea Nitrogen (BUN) 10 9 - 16 mg/dL [facility] Creatinine, Serum 0.79 0.5 - 1.4 mg/dL [facility] Creatinine Clr Calc Pharmacy 82.5 [facility] Comment:Provided height and weight: 154.94 cm,102.965 kg.eGFR (calculated from the MDRD study equation) and eCrCl(calculated from the Cockcroft-Gault equation) are based ondifferent parameters and may not yield comparable results.If eCrCl result is absurd, please check patient'sheight/weight. Estimated Glomerular Filt Rate >60 [facility] Comment:Chronic Kidney Disea se: Estimated GFR < 60 mL/min/1.65u4Oaotif Kidney Disease: Estimated GFR < 15 mL/min/1.73m2 Glucose 67 60 - 115 mg/dL [facility] Calcium 8.8 8.4 - 10.2 mg/dL [facility] 09/04/2024 11:4 0 AM EST 09/04/2024 11:40 AM EST us Generic External Data Provider LAB BLOOD ORDERAB LES Final Result Performing Organization Address [facility] Co de Phone Number [facility] [address] [place] [phone] * (ABNORMAL) Hemoglobin A1c (09/04/2024 11:40 AM EST) Hemoglobin A1c 6.4(H) <6.0 % [facility] Comment:Hemoglobin A1C Refer ence Range Adults: 4.8 - 6.0 % Non diabetic: < 6.0 % Goal: < 7.0 %Additional Action Suggested: > 8.0 %Note: Hemoglobin A1c results are invalid for patients with abnormal amounts of HbF. Blood transfusions may impact the HbA1c concentration in the patient sample. Estimated Average Glucose 137 mg/dL [facility] Comment:eAG = Estimated ave rage glucose which is %A1C expressed asaverage glucose, using the formula of the L6U-AxffrpoYheegwk Glucose study (ADAG), Diabetes Care, Vol.31,#8,2007 09/04/2024 11:4 0 AM EST 09/04/2024 11:40 AM EST us Generic External Data Provider LAB BLOOD ORDERAB LES Final Result Performing Organization Address [facility] Co de Phone Number [facility] [address] [place] [phone] * CBC (09/04/2024 11:40 AM EST) White Blood Count 5.8 4.8 - 10.8 X10*3/uL [facility] Red Blood Count 4.27 4.20 - 5.50 X10*6/uL [facility] Hemoglobin 13.1 12.0 - 16.0 g/dl [facility] Hematocrit 39.7 37.0 - 47.0 % [facility] Mean Corpuscular Volume 93.0 80.0 - 98.0 fL [facility] Mean Corpuscular Hemoglobin 30.7 27.0 - 33.0 pg [facility] Mean Corpuscular HGB Conc 33.0 31.0 - 35.0 g/dl [facility] Red Cell Distribution Width 13.2 11.0 - 16.0 % [facility] Platelet Count 182 160 - 400 X10*3/uL [facility] Mean Platelet Volume 10.3 9.4 - 12.3 fL [facility] NRBC Pct Auto 0.0 0.0 - 0.2 /100WBC [facility] NRBC Abs Auto 0.000 0.0 - 0.012 X10*3/uL [facility] 09/04/2024 11:4 0 AM EST 09/04/2024 11:40 AM EST us Generic External Data Provider LAB BLOOD ORDERAB LES Final Result [facility] [address] [place] [phone] * (ABNORMAL) MRSA Nasal Screen (09/04/2024 10:15 AM EST) Pathologist [facility] MRSA Nasal PCR NEGATIVE Negative [facility] SA Nasal PCR POSITIVE(A) Negative [facility] MRSA Interpretation SEE NOTE [facility] Comment:MRSA target DNA not detected; SA target DNA detected.A MRSA NEGATIVE, SA POSITIVE test result does not precludeMRSA nasal colonization. 09/04/2024 10:1 5 AM EST 09/04/2024 11:20 AM EST us Generic External Data Provider LAB MICROBIOLOGY - GENERAL ORDERABLES Final Result [facility] [address] [place] [phone] [phone] documented in this encounter Visit Diagnoses Not on filedocumented in this encounter Additional Health Concerns Assessment Noted Time PHQ-9 Depression Total Score: 3 03/03/20 11:33 AM EDT documented as of this encounter Care Teams Tax Director Relationship Specialty Start Date End Date Princess Min FNP [address] [place] [address] PCP - General Family Medicine 02/10/24 documented as of this encounter
--- OUTSIDE RECORDS SUMMARY | 2024-09-20 11:44 | XMS_ITS | Encounter Summary ---
Author Organization [email or web address] Address [address] [facility] [address] [place] [address] Care Team Providers Care Driver Trainer Name Role Phone Princess Min Primary Care Provider [phone] Reason for Referral * Imaging (Routine) - Closed Specialty Diagnoses / Procedures Referred By Elaina melendez Referred To Contact Radiology Diagnoses Encounter for screening mammogram for malignant neoplasm of breast Procedures BI Mammogram Screening Tomosynthesis Bilateral Princess Min FNP [address] [place] [address] Phone: tel: fax: [address] Phone: tel: fax: Referral ID Status Reason Start Date Expiration Date Visits Re quested Visits Authorized [id number] Closed 09/18/2024 09/18/2025 1 1 Encounter Details Date Type Department Care Team (Late st Contact Info) Description 09/18/2024 10:15 AM EST Office Visit [facility] [address] [place], [place] [phone] Princess Min FNP [address] [place], [place] [phone] Moderate persistent asthma without complication (Primary Dx); History of total knee arthroplasty, left; Encounter for screening mammogram for malignant neoplasm of breast; Healthcare maintenance; Routine health maintenance; Type 2 diabetes mellitus without complication, with long-term current use of insulin ([facility]) Social History Tobacco Use Types Packs/Day Years [...] Frequency of Binge Drinking Not on file 0803/2024 Score 0 03/03/2024 Depression Answer Date Recorded [...] Sign Reading Time Taken Comments Blood Pressure 138/76 09/18/2024 10:05 AM EST Pulse 68 09/18/2024 10:04 AM EST Temperature 36.1 ??C (96.9 ??F) 09/18/2024 10:[address] Respiratory Rate 22 09/18/2024 10:04 AM EST Oxygen Saturation 98% 09/18/2024 10:04 AM EST Inhaled Oxygen Concentration - - Weight 100 kg (220 lb 6 oz) 09/18/2024 10:04 AM EST Height 154.9 cm (5' 1 ) 09/18/2024 10:04 AM EST Body Mass Index 41.64 09/18/2024 10:04 AM EST documented in this encounter Progress Notes * Princess Min, ORACLE BPM DEVELOPER - 09/18/2024 10:15 AM EST SUBJECTIVE Patient ID: Argelia Oliver is a 59 y.o. female w/ PMH hypertension, T2DM, hypothyroid, mod persistent asthma who presents to the office for follow up visit - chronic conditions. HPI: Last PCP visit: 05/26/24 Left knee pain: History of left TKA in May 2023 at [facility] with Dr. Laureano. Initial improvement following surgery but then s/p fall. Now with persistent pain in the knee and currently scheduled forfollow-up surgery possible revision. Reports pain in left knee is moderate to severe. Using cane, rolling walker in house. At times pain is so severe and Tylenol not effective. Will prescribe 5 tablets of oxycodone with no refills as needed. Reviewed strict med safety and side effects. 05/23/24: CT left knee w/o contrast (Dr. Laureano). 2. Slight enlargement and heterogeneity of the distal quadriceps tendon which could reflect postsurgical result or intrasubstance partial tearing. No transverse defect or tendon retraction. Recent URI with asthma exacerbation. Used prednisone with good effect. In need of reviewed renewal of nebulizer equipment for albuterol as needed. Social History Social History Narrative Living - living by herself, feels safe in current living situation. 1 endodontics dentist that come to the house for assistance. Celestine - 20 hrs 15 mins. Substance Use: -tobacco use - 5-6 cigg/day x 38 years smoking (quit for 8 years) = 9.5 pack years. -Alcohol - Drinks alcohol socially, very occasional. -Denies use of un-prescribed opioids, marijuana, or other substances. Sexual history - reports not sexually active Review of Systems Constitutional: Negative for chills and fever. HENT: Negative for congestion, ear discharge, sinus pressure, sinus pain, sore throat and tinnitus. Cardiovascular: Negative for chest pain and palpitations. Musculoskeletal: Positive for arthralgias. OBJECTIVE Visit Vitals BP 138/76 (BP Location: Right arm, Patient Position: Sitting, BP Cuff Size: Large adult) Pulse 68 Temp 96.9 ??F (36.1 ??C) (Temporal) Resp 22 Ht 5' 1 (1.549 m) Wt 220 lb 6 oz (100 kg) LMP (LMP Unknown) SpO2 98% BMI 41.64 kg/m?? Smoking Status Every Day BSA 2.07 m?? Physical Exam Constitutional: Appearance: Normal appearance. HENT: Head: Atraumatic. Right Ear: External ear normal. Left Ear: External ear normal. Cardiovascular: Rate and Rhythm: Normal rate and regular rhythm. Pulmonary: Effort: Pulmonary effort is normal. Breath sounds: Normal breath sounds. Musculoskeletal: Left knee: No swelling. Tenderness present. Neurological: Mental Status: She is alert and oriented to person, place, and time. Psychiatric: Mood and Affect: Mood normal. Behavior: Behavior normal. Problem List Items Addressed This Visit Respiratory Moderate persistent asthma without complication - Primary Overview -Continues with Asmanex 200mcg/act 1 puff BID, Singulair 10mg nightly, and Albuterol PRN -DME request for nebulizer 09/18/2024 Other Routine health maintenance Overview -Mammo: BIRADS 2 on 02/09/23. Mammo order placed 09/14/2024. -Pap: Total hysterectomy 2012 for symptomatic enlarged fibroids. No further Pap smears indicated -Colonoscopy: 05/25/2017, next due April 2027 History of total knee arthroplasty, left Overview 06/09/23 at [facility] - Dr. Laureano Relevant Medications oxyCODONE (Roxicodone) 5 MG immediate release tablet Other Visit Diagnoses Encounter for screening mammogram for malignant neoplasm of breast Relevant Orders BI Mammogram Screening Tomosynthesis Bilateral Healthcare maintenance Relevant Orders Chlamydia/N. Gonorrhoeae RNA, TMA, Urogenitial Hepatitis C Viral RNA, Quantitative, Real-Time PCR RPR (Monitor) with Reflex to Titer HIV-1/2 Antigen and Antibodies, Fourth Generation, with Reflexes Albumin, Random Urine W/Creatinine Lipid Panel, Standard TSH with Reflex to Free T4 Comprehensive Metabolic Panel CBC auto differential Follow up: 3 months, sooner as needed. documented in this encounter Miscellaneous Notes * Assessment & Plan Note - BIANCA Arboleda - 09/18/2024 1:44 PM ESTAssociated Problem(s): Moderate persistent asthma without complication documented in this encounter Plan of Treatment Pending Results Name Type Priority Associated Diagnoses Date /Time RPR (Monitor) with Reflex to??Titer Lab Routine Healthcare maintenance 09/18/2024 11:22 AM EST Scheduled Orders Name Type Priority Associated Diagnoses Orde r Schedule BI Mammogram Screening Tomosynthesis Bilateral Imaging Routine Encounter for screening mammogram for malignant neoplasm of breast Expected: 09/18/2024, Expires: 11/16/2025 Chlamydia/N. Gonorrhoeae RNA, TMA, Urogenitial Microbiology Routine Healthcare maintenance Expected: 09/18/2024, Expires: 09/18/2025 Hepatitis C Viral RNA, Quantitative, Real-Time PCR Lab Routine Healthcare maintenance Expected: 09/18/2024 (Approximate), Expires: 09/18/2025 documented as of this encounter Procedures Procedure Name Priority Date/Time Associated Diagnosis Comments ALBUMIN, RANDOM URINE W/CREATININE Routine 09/18/2024 11:31 AM EST Healthcare maintenance CBC WITH AUTO DIFFERENTIAL Routine 09/18/2024 11:22 AM EST Healthcare maintenance RPR (MONITOR) W/REFL TITER Routine 09/18/2024 11:22 AM EST Healthcare maintenance HIV 1/2 ANTIGEN/ANTIBODY, FOURTH GENERATION W/RFL Routine 09/18/2024 11:22 AM EST Healthcare maintenance TSH W/REFLEX TO FT4 Routine 09/18/2024 1 1:02 AM EST Healthcare maintenance LIPID PANEL, STANDARD Routine 09/18/2024 11:02 AM EST Healthcare maintenance COMPREHENSIVE METABOLIC PANEL Routine 09/18/2024 11:02 AM EST Healthcare maintenance documented in this encounter Results * Albumin, Random Urine W/Creatinine (09/18/2024 11:31 AM EST) Creatinine, Urine 65.49 mg/dL [facility] Microalbumin Urine 8.0 mg/L [facility] Microalbum Creatinine Ratio Ur 12.2 <30 ug/mg cr [facility] Comment:Albumin/Creatinine R atio Reference Ranges: Normal: < 30 ug/mg creatinine Microalbuminuria: 30 - 300 ug/mg creatinineClinical Albuminuria: > 300 ug/mg creatinine Urine 09/18/2024 11:3 1 AM EST 09/18/2024 2:41 PM EST us Princess Min ORACLE BPM DEVELOPER LAB URINE ORDERABLES Final Res ult Performing Organization Address City/State/[facility] Co de Phone Number [facility] [address] [place] [phone] * (ABNORMAL) CBC auto differential (09/18/2024 11:22 AM EST) White Blood Count 8.1 4.8 - 10.8 X10*3/uL [facility] Red Blood Count 4.26 4.20 - 5.50 X10*6/uL [facility] Hemoglobin 12.9 12.0 - 16.0 g/dl [facility] Hematocrit 37.8 37.0 - 47.0 % [facility] Mean Corpuscular Volume 88.7 80.0 - 98.0 fL [facility] Mean Corpuscular Hemoglobin 30.3 27.0 - 33.0 pg [facility] Mean Corpuscular HGB Conc 34.1 31.0 - 35.0 g/dl [facility] Red Cell Distribution Width 12.9 11.0 - 16.0 % [facility] Platelet Count 247 160 - 400 X10*3/uL [facility] Mean Platelet Volume 10.7 9.4 - 12.3 fL [facility] Neutrophils Percent Auto 67.4 45 - 73 % [facility] Imm Gran Pct Auto 1.7(H) 0.0 - 0.4 % [facility] Lymphocytes Percent Auto 24.5 20 - 40 % [facility] Monocytes Percent Auto 5.3 2 - 11 % [facility] Eosinophils Percent Auto 0.6 0 - 4 % [facility] Basophils Percent Auto 0.5 0 - 2 % [facility] NRBC Pct Auto 0.0 0.0 - 0.2 /100WBC [facility] Neutrophils Absolute Auto 5.5 2.0 - 8.3 x10*3/uL [facility] Imm Gran Abs Auto 0.14(H) 0.00 - 0.03 X10*3/uL [facility] Lymphocytes Absolute Auto 2.0 1.2 - 4.9 X10*3/uL [facility] Monocytes Absolute Auto 0.4 0.1 - 1.2 X10*3/uL [facility] Eosinophils Absolute Auto 0.1 0.0 - 0.4 X10*3/uL [facility] Basophils Absolute Auto 0.0 0.0 - 0.2 X10*3/uL [facility] NRBC Abs Auto 0.000 0.0 - 0.012 X10*3/uL [facility] Blood Venous blood specimen / Unknown 09/18/2024 11:22 AM EST 09/18/2024 2:41 PM EST us Princess Min ORACLE BPM DEVELOPER LAB BLOOD ORDERABLES Final Res ult [facility] [address] [place], [place] [phone] * HIV-1/2 Antigen and Antibodies, Fourth Generation, with Reflexes (09/18/2024 11:22 AM EST) HIV AB/AG Nonreactive Nonreactive [facility] Comment:HIV-1 p24 Ag and/or HIV-1/HIV-2 Ab not detected.A test result that is nonreactive does not exclude thepossibility of exposure to or infection with HIV-1 and/orHIV-2. Nonreactive results in this assay for individualswith prior exposure to HIV-1 and/or HIV-2 may be due toantigen and antibody levels that are below the limit ofdetection of this assay.The [employer] HIV Ag/Ab Combo assay result andsupplemental assay results should be interpreted inconjunction with the patient's clinical presentation,history and other laboratory results. If the results areinconsistent with clinical evidence, additional testing issuggested to confirm the result. Blood Venous blood specimen / Unknown 09/18/2024 11:22 AM EST 09/18/2024 2:41 PM EST us Princess Min ORACLE BPM DEVELOPER LAB BLOOD ORDERABLES Final Res ult [facility] [address] [place] [phone] * (ABNORMAL) Comprehensive Metabolic Panel (09/18/2024 11:02 AM EST) Sodium 139 135 - 145 mmol/L [facility] Potassium 4.0 3.3 - 5.1 mmol/L [facility] Comment:Slight Hemolysis.Int erpret result with caution. Chloride 106 96 - 108 mmol/L [facility] Carbon Dioxide 24 22 - 29 mmol/L [facility] Anion Gap 13 12 - 20 [facility] Urea Nitrogen (BUN) 17(H) 9 - 16 mg/dL [facility] Creatinine, Serum 0.89 0.5 - 1.4 mg/dL [facility] Estimated Glomerular Filt Rate >60 [facility] Comment:Chronic Kidney Disea se: Estimated GFR < 60 mL/min/1.52b9Kewcui Kidney Disease: Estimated GFR < 15 mL/min/1.73m2 Glucose 255(H) 60 - 115 mg/dL [facility] Calcium 9.0 8.4 - 10.2 mg/dL [facility] Bilirubin, Total 0.4 0.0 - 1.0 mg/dL [facility] Aspartate Amino Transferase 17 5 - 31 U/L [facility] Comment:Slight Hemolysis.Int erpret result with caution. Alanine Aminotransferase 27 0 - 31 U/L [facility] Total Protein 7.5 6.5 - 8.0 g/dL [facility] Albumin Level 3.9 3.5 - 5.0 g/dL [facility] Alkaline Phosphatase 104 39 - 117 U/L [facility] Blood Venous blood specimen / Unknown 09/18/2024 11:02 AM EST 09/18/2024 2:41 PM EST Princess Min [facility] LAB BLOOD ORDERABLES Final Res ult Performing Organization Address [facility] Co de Phone Number [facility] [address] [place] [phone] * TSH with Reflex to Free T4 (09/18/2024 11:02 AM EST) TSH reflex Free T4 0.97 0.32 - 4.0 uIU/mL [facility] Blood 09/18/2024 11:0 2 AM EST 09/18/2024 2:41 PM EST Princess Min ORACLE BPM DEVELOPER LAB BLOOD ORDERABLES Final Res ult Performing Organization Address [facility] Co de Phone Number [facility] [address] [place] [phone] * Lipid Panel, Standard (09/18/2024 11:02 AM EST) Triglycerides 136 <150 mg/dL [facility] Comment:Desirable Triglyceri de: less than 150 mg/dLBorderline High Triglyceride 150-199 mg/dLHigh Triglyceride: 200-499 mg/dLVery High Triglyceride: greater than or equal to 5OO mg/dL Cholesterol 156 <200 mg/dL [facility] Comment:Desirable Cholestero l: less than 200 mg/dLBorderline High Cholesterol: 200-239 mg/dLHigh Cholesterol: greater than 239 mg/dL LDL Cholesterol Calculated 75 <100 mg/dL [facility] Comment:Desirable LDL: less than 100 mg/dLNear Optimal/Above Optimal LDL: 110- 129 mg/dLBorderline High LDL: 130-159 mg/dLHigh LDL: 160-189 mg/dLVery High LDL: greater than or equal to 190 mg/dL HDL Cholesterol 54 >40 mg/dL [facility] Comment:Desirable HDL: great er than 40 mg/dL Note: This HDL assay may give artificially low results in patients with liver disease. Blood Venous blood specimen / Unknown 09/18/2024 11:02 AM EST 09/18/2024 2:41 PM EST us Princess VALENZUELA LAB BLOOD ORDERABLES Final Res ult [facility] [address] [place] [phone] documented in this encounter Visit Diagnoses Diagnosis Moderate persistent asthma without complication- Primary History of total knee arthroplasty, left Encounter for screening mammogram for malignant neoplasm of breast Healthcare maintenance Routine health maintenance Unspecified examination Type 2 diabetes mellitus without complication, with long-term current use of insulin ([facility]) documented in this encounter Additional Health Concerns Assessment Noted Time PHQ-9 Depression Total Score: 3 03/03/20 24 11:33 AM EDT documented as of this encounter Care Teams Driver Trainer Relationship Specialty Start Date End Date Princess Min FNP [address] [place] [address] PCP - General Family Medicine 02/10/24 documented as of this encounter"
--- OUTSIDE RECORDS SUMMARY | 2024-09-20 11:44 | XMS_ITS | Encounter Summary ---
Author Organization [employer] Address [address] [facility] 7t [place] [address] Care Team Providers Care Forestry Patrolman Name Role Phone Princess Min DESKTOP SUPPORT CONSULTANT Primary Care Provider [phone] Reason for Visit * Reason Onset Date Comments Durable Medical Equipment 09/18/2024 Encounter Details Date Type Department Care Team (Late st Contact Info) Description 09/18/2024 Telephone [facility] [address] [place], [place] [phone] Princess Min FNP [address] [place] [address] Durable Medical Equipment Social History Tobacco Use [...] encounter Miscellaneous Notes * Telephone Encounter - Yaz Simon LPN - 09/18/2024 11:12 AM EST Form completed for Nebulizer and faxed to [employer]. documented in this encounter Plan of Treatment Not on file documented as of this encounter Visit Diagnoses Not on filedocumented in this encounter Additional Health Concerns Assessment Noted Time PHQ-9 Depression Total Score: 3 03/03/20 11:33 AM EDT documented as of this encounter Care Teams Forestry Patrolman Relationship Specialty Start Date End Date Princess Min FNP [address] [place] [address] PCP - General Family Medicine 02/10/24 documented as of this encounter
--- OUTSIDE RECORDS SUMMARY | 2024-09-20 11:44 | XMS_ITS | Encounter Summary ---
Author Organization [employer] Address [address] [facility] 7t [place] [address] Care Team Providers Care Fishing Tackle Repairer Name Role Phone Princess Min Primary Care Provider [phone] Princess Min Primary Care Provider Princess Min Primary Care Provider [phone] Reason for Visit * Reason Comments Med Refill Encounter Details Date Type Department Care Team ([facility] st Contact Info) Description 06/14/2023 Refill [facility] [address] [place] [address] Princess Min FNP [address] [place], [place] [phone] Social History Tobacco Use Types Packs/Day Years [...] documented as of this encounter Care Teams Fishing Tackle Repairer Relationship Specialty Start Date End Date Princess Min FNP [address] [place] [address] PCP - General Family Medicine 03/20/22 12/26/23 Princess Min FNP [address] [place] [address] PCP - General Family Medicine 01/21/24 02/03/24 Princess Min FNP [address] [place] [address] PCP - General Family Medicine 02/10/24 documented as of this encounter
--- OUTSIDE RECORDS SUMMARY | 2024-09-20 11:44 | XMS_ITS | Encounter Summary ---
Author Organization [employer] Address [address] [facility] [address] [place] [address] Care Team Providers Care Sales Planner Name Role Phone Princess Min Primary Care Provider Reason for Visit * Reason Onset Date Comments FYI 07/13/2024 Encounter Details Date Type Department Care Team ([facility] st Contact Info) Description 07/13/2024 Telephone [facility] [address] [place] [address] Princess Min FNP [address] [place], [place] [phone] FYI Social History Tobacco Use Types Packs/Day Years [...] encounter Miscellaneous Notes * Telephone Encounter - Taran Osorio - 07/13/2024 11:36 AM EST Tc from pt wants to inform pcp that her surgery was rescheduled from 09/12 to 09/27. documented in this encounter Plan of Treatment Not on file documented as of this encounter Visit Diagnoses Not on filedocumented in this encounter Additional Health Concerns Assessment Noted Time PHQ-9 Depression Total Score: 3 03/03/20 11:33 AM EDT documented as of this encounter Care Teams Sales Planner Relationship Specialty Start Date End Date Princess Min FNP [address] [place] [address] PCP - General Family Medicine 02/10/24 documented as of this encounter
--- OUTSIDE RECORDS SUMMARY | 2024-09-20 11:44 | XMS_ITS | Encounter Summary ---
Author Organization [employer] Address [address] [facility] 7t [place] [address] Care Team Providers Care Grain Sacker Name Role Phone Princess Min Primary Care Provider [phone] Reason for Visit * Reason Onset Date Comments Nurse Triage 09/15/2024 Encounter Details Date Type Department Care Team ([facility] st Contact Info) Description 09/15/2024 Telephone [facility] [address] [place] [address] Princess Min FNP [address] [place], [place] [phone] Nurse Triage Social History Tobacco Use Types Packs/Day [...] encounter Miscellaneous Notes * Telephone Encounter - Lisbet Nix LPN - 09/15/2024 10:09 AM EST Triage call returned with BLS #[id number] Alirio. Patient with asthma and has had no use of previous nebulizer as when it was plugged in it caused belcher. Attempts to run it with ongoing issue. Has requested replacement per chart DME pending. Patient with nasal congestion and wheezing noted. Patient reports mucous is white and when she blows her nose sometimes yellow. Patient with tight cough and is able to speak in full uninterrupted sentences at time of call. No fever. Disposition reviewed with patient in agreement with plan. Will have [facility] bring her to [facility] today.No PCP or Team appts. Available at time of call. [facility] In Center hours and availability provided for patient evaluation. Triage nurse informed the patient may have a wait of 1-2 hours because Walk In Clinic may have delays due to patient volume or symptom acuity. Insurance verified as active. Protocol Used: Asthma Attack (Adult) Protocol-Based Disposition: See in Office or Video Visit Today Video visit not offered Positive Triage Question: * Patient wants to be seen * All higher-acuity triage questions were negative Care Advice Discussed: * Asthma Attack * Reasons To Call Back - Quick-relief asthma medicine (such as albuterol by inhaler or nebulizer) is needed more often than every 4 hours - You become worse * Telephone Encounter - Mary Koch - 09/15/2024 9:25 AM EST Symptom: Asthma Attack - Caller Reports Outcome: Schedule an urgent appointment (within 1 hour) or talk to a nurse or provider soon Reason: Any trouble breathing through the mouth Uzbek speaker The caller accepted this outcome. documented in this encounter Plan of Treatment Not on file documented as of this encounter Visit Diagnoses Not on filedocumented in this encounter Additional Health Concerns Assessment Noted Time PHQ-9 Depression Total Score: 3 03/03/20 24 11:33 AM EDT documented as of this encounter Care Teams Grain Sacker Relationship Specialty Start Date End Date Princess Min FNP [address] [place] [phone] PCP - General Family Medicine 02/10/24 documented as of this encounter
--- OUTSIDE RECORDS SUMMARY | 2024-09-20 11:44 | XMS_ITS | Encounter Summary ---
Author Organization [employer] Address [address] [facility] 7t [place] [address] Care Team Providers Care Fisher Trawl Net Name Role Phone Princess Min [facility] Primary Care Provider Reason for Visit * Reason Comments Pre-op Exam Encounter Details Date Type Department Care Team ([facility] st Contact Info) Description 09/20/2024 9:00 AM EST Office Visit [facility] MED & PEDS [address] [place], [place] [phone] [facility] [address] [place] [address] Preop examination (Primary Dx); Type 2 diabetes mellitus without complication, with long-term current use of insulin ([facility]) Social History Tobacco Use Types Packs/Day Years [...] Mass Index 43.08 09/20/2024 9:00 AM EST documented in this encounter Plan of Treatment Scheduled Orders Name Type Priority Associated Diagnoses Orde r Schedule Prothrombin Time-INR Lab Routine Preop examination Expected: 09/20/2024, Expires: 09/20/2025 documented as of this encounter Procedures Procedure Name Priority Date/Time Associated Diagnosis Comments POCT GLYCATED HEMOGLOBIN, TOTAL Routine 09/20/2024 9:03 AM EST Type 2 diabetes mellitus without complication, with long-term current use of insulin ([facility]) POCT GLUCOSE Routine 09/20/2024 9:02 AM EST Type 2 diabetes mellitus without complication, with long-term current use of insulin ([facility]) documented in this encounter Results * (ABNORMAL) POCT A1C (09/20/2024 9:03 AM EST) Hemoglobin A1C 7.9(A) 4.0 - 6.0 % QC Media Lot # Comment:[id number] Lot# Expiration Date Comment:05/12/2026 Blood 09/20/2024 9:03 AM EST [facility] POINT OF CARE TEST ENTER/EDIT ORDERABLES Final Result * (ABNORMAL) POCT glucose manually resulted (09/20/2024 9:02 AM EST) Glucose Blood, POC 256(A) 60 - 200 mg/dL QC Media Lot # Comment:[id number] Lot# Expiration Date Comment:01/25/2025 Blood Capillary blood specimen / Unknown 09/20/2024 9:02 AM EST [facility] POINT OF CARE TEST ENTER/EDIT ORDERABLES Final Result documented in this encounter Visit Diagnoses Diagnosis Preop examination- Primary Unspecified pre-operative examination Type 2 diabetes mellitus without complication, with long-term current use of insulin ([facility]) documented in this encounter Additional Health Concerns Assessment Noted Time PHQ-9 Depression Total Score: 3 03/03/20 24 11:33 AM EDT documented as of this encounter Care Teams Fisher Trawl Net Relationship Specialty Start Date End Date Princess Min FNP [address] [place] [address] PCP - General Family Medicine 02/10/24 documented as of this encounter
--- OUTSIDE RECORDS SUMMARY | 2024-09-20 11:44 | XMS_ITS | Encounter Summary ---
Author Organization [employer] Address [address] [facility] 7t [place] [address] Care Team Providers Care Elevator Supervisor Name Role Phone Princess Min Primary Care Provider [phone] Reason for Visit * Reason Onset Date Comments Durable Medical Equipment 09/12/2024 Encounter Details Date Type Department Care Team (Late st Contact Info) Description 09/12/[address] [facility] MEDICINE [address] [place] [address] Princess Min FNP [address] [place], [place] [phone] Durable Medical Equipment Social History Tobacco Use [...] encounter Miscellaneous Notes * Telephone Encounter - Denisa Bradley - 09/12/2024 1:07 PM EST Tc from pt requesting nebulizer. documented in this encounter Plan of Treatment Not on file documented as of this encounter Visit Diagnoses Not on filedocumented in this encounter Additional Health Concerns Assessment Noted Time PHQ-9 Depression Total Score: 3 03/03/20 24 11:33 AM EDT documented as of this encounter Care Teams Elevator Supervisor Relationship Specialty Start Date End Date Princess Min FNP [address] [place] [address] PCP - General Family Medicine 02/10/24 documented as of this encounter
--- OUTSIDE RECORDS SUMMARY | 2024-09-20 11:44 | XMS_ITS | Encounter Summary ---
Author Organization [employer] Address [address] [facility] [address]t [place] [address] Care Team Providers Care Geriatric Physical Therapist Name Role Phone Princess Min Primary Care Provider [phone] Princess Min Primary Care Provider [phone] Princess Min Primary Care Provider [phone] Reason for Visit * Reason Onset Date Comments PCP Switch 06/22/2023 Encounter Details Date Type Department Care Team (Late st Contact Info) Description 06/22/2023 Telephone [facility] MEDICINE [address] [place] [address] Princess Min FNP [address] [place], [place] [phone] PCP Switch Social History Tobacco Use Types Packs/Day Years [...] encounter Miscellaneous Notes * Telephone Encounter - Drake Levy - 06/22/2023 11:21 AM EST Tc from patient requesting a new PCP provider states needs to be seen by a doctor not a CERTIFIED DETENTION DEPUTY automobile service writer did express that it will be sometime before the change can take place patient is aware and ok with response. documented in this encounter Plan of Treatment Not on file documented as of this encounter Visit Diagnoses Not on filedocumented in this encounter Additional Health Concerns Assessment Noted Time PHQ-9 Depression Total Score: 10 023 10:39 AM EDT documented as of this encounter Care Teams Geriatric Physical Therapist Relationship Specialty Start Date End Date Princess Min FNP [address] [place] [address] PCP - General Family Medicine 03/20/22 12/26/23 Princess Min FNP [address] [place] [address] PCP - General Family Medicine 01/21/24 02/03/24 Princess Min FNP [address] [place] [address] PCP - General Family Medicine 02/10/24 documented as of this encounter
--- OUTSIDE RECORDS SUMMARY | 2024-09-20 11:44 | XMS_ITS | Encounter Summary ---
Author Organization [employer] Address [address] [facility] 7t [place] [address] Care Team Providers Care Crm Technical Lead Name Role Phone Princess Min Primary Care Provider [phone] Reason for Visit * Reason Comments Med Refill Encounter Details Date Type Department Care Team ([facility] st Contact Info) Description 09/07/2024 Refill [facility] MED[facility]INE [address] [place] [address] Princess Min FNP [address] [place], [place] [phone] Social History Tobacco Use Types Packs/Day Years [...] documented as of this encounter Care Teams Crm Technical Lead Relationship Specialty Start Date End Date Princess Min FNP [address] [place] [address] PCP - General Family Medicine 02/10/24 documented as of this encounter
--- OUTSIDE RECORDS SUMMARY | 2024-09-20 11:44 | XMS_ITS | Encounter Summary ---
Author Organization [employer] Address [address] [facility] 7t [place] [address] Care Team Providers Care Behavioral Health Professional Name Role Phone Princess Min Primary Care Provider [phone] Reason for Visit * Reason Comments Med Refill Encounter Details Date Type Department Care Team ([facility] st Contact Info) Description 07/17/2024 Refill [facility] MED & PEDS [address] [place], [place] [phone] Princess Min FNP [address] [place], [place] [phone] Acute otitis externa of left ear, unspecified type; Intermittent diarrhea Social History Tobacco Use Types Packs/Day Years [...] as of this encounter Visit Diagnoses Diagnosis Acute otitis externa of left ear, unspecified type Intermittent diarrhea documented in this encounter Additional Health Concerns Assessment Noted Time PHQ-9 Depression Total Score: 3 03/03/20 24 11:33 AM EDT documented as of this encounter Care Teams Behavioral Health Professional Relationship Specialty Start Date End Date Princess Min FNP [address] [place] [address] PCP - General Family Medicine 02/10/24 documented as of this encounter
--- OUTSIDE RECORDS SUMMARY | 2024-09-20 11:44 | XMS_ITS ---
Author Organization [facility] Address [address] [place] [address] Care Team Providers Care Outside Plant Field Engineer Name Role Phone OMERO SOTO MD Primary Care Provider Naun Silva Jr, Aidan [facility] REASON FOR VISIT screening colonoscopy Encounters Encounter Location Date Provider Diagnosis [facility] [address] [place] [address] 06/26/2024 Aidan Silva Jr PLAN OF TREATMENT No Information
[2024-09-20 14:35] LABS: INTERNATIONAL NORM RATIO 0.9 (0.9-1.1); Prothrombin Time 10.3 SEC (10.9-12.4)
== END 2024-09-20 09:52 | disposition home or self-care (01) ==
LOC: HO.CHCLDS 09:51
PROVIDERS: Visit Provider Registered Nurse
DX: Z01.818 Encounter for other preprocedural examination (principal)
CPT/HCPCS: 36415; 85610

== ENCOUNTER 2024-09-21 09:22 | Outpatient (AMB) | payer MEDICAID, SELFPAY ==
--- NOTE | 2024-09-21 09:40 | MHC.OFFVIS ---
Intake Visit Reasons: Pre-Op: L TKA Rev. w/NE 09/27/24 Intake Note: Argelia is a 59 year old female who presents today for a pre op appointment for her revision left total knee arthroplasty 09/27/24 NE. Patient was given a pain management consent form. [employer] Services: [employer] Present (Raphael ([id number])) Allergies cortisone [CORTISONE] Allergy (Intermediate, Verified 09/05/24 09:15) ELEVATES BLOOD SUGAR ibuprofen [IBUPROFEN] Allergy (Intermediate, Verified 09/05/24 09:15) GI UPSET, stomach upset mayonnaise [MAYONNAISE] Allergy (Mild, Verified 09/05/24 09:15) RASH naproxen [NAPROXEN] Adverse Reaction (Intermediate, Verified 09/05/24 09:15) STOMACH UPSET Vicodin Allergy (Unknown, Uncoded 09/05/24 09:15) palpitations,hypertension Cortisone Adverse Reaction (Unknown, Uncoded 09/05/24 09:15) hyperglycemia HPI HPI Pre-Op: L TKA Rev. w/NE 09/27/24: Details: Ms. Jose Oliver is a 59-year-old female who presents to the office today for her preoperative history and physical appointment pending left total knee revision with Dr. Laureano scheduled for 09/27/2024. Patient was seen and a clearance was faxed over on 09/18/2024. A CT scan was also obtained prior to surgery. Synovasure was also performed on the left knee and was negative for infection. Of note, the patient does have a past medical history significant for type 2 diabetes, last A1c was 6.4 on 09/04/2024. Additionally, the patient does have a history of atypical chest pain. She had a cardiac clearance on 06/16/2024 with a recommendation was that the patient was mild risk for moderate procedure and to avoid fluid overload postoperatively. [facility] Medical History (Updated 03/09/24 @ 21:00 by BIANCA Teague) Back pain Arthritis Anemia GERD (gastroesophageal reflux disease) History of headache Osteoarthritis of knees, bilateral Depression Asthma High cholesterol Hypothyroidism Type 2 diabetes mellitus Bilateral carpal tunnel syndrome Fibromyalgia Chronic diarrhea Drug induced constipation Surgical History (Updated 09/04/24 @ 11:04 by Indy Cunningham RN) History of total left knee replacement History of total right knee replacement (TKR) Hx of bilateral cataract extraction History of esophagogastroduodenoscopy (EGD) H/O colonoscopy Hx of hand surgery History of cholecystectomy (~2011) S/p bilateral carpal tunnel release (~2003) Hx of laparoscopic adjustable gastric banding (~2009) History of removal of laparoscopic gastric banding device (~10/2012) H/O: hysterectomy (~10/2012) Family History Mother No problems noted. Father Cancer Sister Breast cancer Social History (Updated 09/21/24 @ 09:41 by Bernard Osorio) Household Members: Family Household Members Other:: sister Housing: House Are you a primary child care center assistant director to a significant other at home: No Do you presently have visiting nurse or other home services: Yes (RESEARCH PSYCHOLOGIST) Alcohol intake: current Alcohol intake frequency: holidays/special occasions only Comment: COUNTS CORRECT Patient Tobacco Use Status: Current everyday Tobacco user Tobacco use type: Cigarette Cigarettes Per Day: 3 Years Smoked: 47 service: No Current occupational status: disabled Review of Systems Const All systems reviewed & are unremarkable except as noted in HPI and below Physical Exam Const General: cooperative, healthy appearing, comfortable, no acute distress, well developed, alert and awake Orientation/consciousness: patient oriented x3 HEENT Head: Yes normal to inspection, Yes normocephalic and Yes atraumatic Eyes General: appearance normal, both eyes and all related structures Neck Neck: Yes normal visual inspection and Yes no lymphadenopathy Resp Effort & Inspection: normal respiratory effort and able to speak in complete sentences Cardio Rate: regular rate Peripheral pulses: Peripheral pulses 2+ throughout GI Inspection: Yes normal to inspection Palpation (GI): Soft to palpation Skin General skin exam: no rashes or lesions noted Neuro General: patient oriented x3 Extrem Other: mild effusion no warmth [employer] clean and dry Psych Mental Status: mental status grossly normal Assessment & Plan Assessment & Plan (1) Chronic knee pain after total replacement of left knee joint: Code(s): M25.562 - Pain in left knee; G89.29 - Other chronic pain; Z96.652 - Presence of left artificial knee joint Category: Medical Plan Ms. Jose Oliver is a 59-year-old female who presents to the office today for her preoperative history and physical appointment pending left total knee revision with Dr. Laureano scheduled for 09/27/2024. Patient was seen and a clearance was faxed over on 09/18/2024. A CT scan was also obtained prior to surgery. Synovasure was also performed on the left knee and was negative for infection. Of note, the patient does have a past medical history significant for type 2 diabetes, last A1c was 6.4 on 09/04/2024. Additionally, the patient does have a history of atypical chest pain. She had a cardiac clearance on 06/16/2024 with a recommendation was that the patient was mild risk for moderate procedure and to avoid fluid overload postoperatively. I discussed in detail the procedure and what to expect pre and post operatively. We discussed the risks, benefits and alternatives to the surgery as well as the rehabilitation course. The risks; which include, but are not limited to infection, bleeding, nerve injury, ongoing pain, swelling, and stiffness, perioperative risk of injury to bones and soft tissues, and blood clots. I?ve answered all questions and with their understanding they have consented to move forward with revision left total knee arthroplasty with Dr. Laureano. Patient was on aspirin status post left total knee arthroplasty on 06/09/2023. No contraindications to Celebrex. X-rays were obtained in the office today of the left knee for preoperative planning. 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
--- OUTSIDE RECORDS SUMMARY | 2024-09-21 10:20 | XMS_ITS ---
Author Organization [facility] Address [address] [place] [address] Care Team Providers Care Phonograph Cartridge Assembler Name Role Phone OMERO SOTO MD Primary Care Provider Naun Silva Jr, Aidan Unavailable REASON FOR VISIT conf appt Encounters Encounter Location Date Provider Diagnosis [facility] [address] [place] [address] 06/21/2024 Aidan Silva Jr PLAN OF TREATMENT No Information
--- OUTSIDE RECORDS SUMMARY | 2024-09-21 10:21 | XMS_ITS | Patient Health Record ---
Author Organization [facility] Address [address] [place] [address] Care Team Providers Care Car Scrubber Name Role Phone OMERO SOTO MD Primary Care Provider Aidan Fried Jr Unavailable REASON FOR REFERRAL Referring Provider First Name OMERO Referring Provider Last Name CHARLES Referred Organization [facility] Referred Provider Aidan Silva Jr Referred Address [address],[facility] [address],[place],[address], Referred Provider Specialty Gastroentero logy Referral Priority Routine SOCIAL HISTORY Sex Assigned At : Social History Observation Description Sex Assigned At Unknown Encounters Encounter Location Date Provider Diagnosis [facility] [address] [place] [address] 06/26/2024 Aidan Silva Jr [facility] [address] [place] [address] 06/21/2024 Aidan Silva Jr PLAN OF TREATMENT No Information Insurance Providers Payer Name Payer Address Payer Phone Subscriber Number Group Number Insured Name Patient Relationship to Insured Coverage Start Date Coverage End Date [place] [address] [place] [id number] NIELS CABALLERO Self - patient is the insured
--- OUTSIDE RECORDS SUMMARY | 2024-09-21 10:21 | XMS_ITS ---
Author Organization [facility] Address [address] [place] [address] Care Team Providers Care Brake Liner Name Role Phone OMERO SOTO MD Primary Care Provider Naun Silva Jr, Aidan [facility] REASON FOR VISIT screening colonoscopy Encounters Encounter Location Date Provider Diagnosis [facility] [address] [place] [address] 06/26/2024 Aidan Silva Jr PLAN OF TREATMENT No Information
== END 2024-09-21 09:58 | disposition home or self-care (01) ==
PROVIDERS: PCP Registered Nurse; Visit Provider Physician Assistant
DX: M25.562 Pain in left knee (principal); G89.29 Other chronic pain; Z96.652 Presence of left artificial knee joint
CPT/HCPCS: 99024

== ENCOUNTER → 2024-09-21 09:31 | Outpatient (BNV) | payer MEDICAID, SELFPAY | PROVIDERS: Visit Provider Radiology Diagnostic Radiology | DX: T84.033A Mechanical loosening of internal left knee prosthetic joint, initial encounter (principal) | CPT/HCPCS: 73562 ==

== ENCOUNTER 2024-09-21 10:32 | Outpatient (REF) | payer MEDICAID, SELFPAY ==
--- NOTE | ~2024-09-21 | XR_ITS ---
EXAMINATION: XR KNEE, LEFT CLINICAL INFORMATION: M25.569 - Pain in unspecified knee COMPARISON: None available. TECHNIQUE: AP view bilateral knees standing, lateral and patellofemoral views left knee. FINDINGS: Right Knee: No acute bony abnormalities. There is been a lateral compartment hemiarthroplasty. Femoral and tibial components appear well seated in anatomic alignment. Mild joint space narrowing lateral compartment with mild spurring. Normal soft tissues. Left Knee: Total left knee arthroplasty. Tibial and femoral components appear intact, although there is subtle periprosthetic lucency surrounding the keel of the tibial component. This is unchanged. There appears to be increased demineralization along the subjacent proximal tibia, particularly subjacent to the medial flange of the prosthesis with possible slight medial settling. In addition, there is mild anterior periprosthetic lucency of the femoral component best visualized on the lateral projection. Overall, findings suggest loosening of the components. There has been patellar resurfacing. Patellar component appears well seated and normal. No fracture, dislocation, or suspicious bone lesion. Normal knee and patellar alignment. There is a small to moderate sized suprapatellar joint effusion. Normal soft tissues. XR/XR knee LT 3V IMPRESSION: 1. Findings highly suggestive of loosening of both the femoral and tibial components of the left knee. Small to moderate joint effusion. Cannot exclude particle disease. Electronically signed by: Gilbert Gould MD 09/21/2024 10:03 AM CHAPARRITA ÁLVAREZ
--- OUTSIDE RECORDS SUMMARY | 2024-09-22 12:00 | XMS_ITS | Encounter Summary ---
Author Organization [employer] Address [address] [facility] 7t [place] [address] Care Team Providers Care Neon Electrician Name Role Phone Princess Min Primary Care Provider [phone] Princess Min Primary Care Provider [phone] Princess Min Primary Care Provider [phone] Reason for Visit * Reason Onset Date Comments Durable Medical Equipment 11/19/2022 Encounter Details Date Type Department Care Team (Late st Contact Info) Description 11/19/2022 Telephone [facility] MEDICINE [address] [place] [address] Princess Min FNP [address] [place], [place] [phone] Durable Medical Equipment Social History Tobacco Use [...] before I couldprovide a referral number to [facility] to process DME. Patient understood and agreed with plan. * Telephone Encounter - Miracle Dickens - 12/08/2022 4:32 PM EDT Tc from pt regarding message below. Pt states [facility] is requesting a PA If any questions please contact pt at [phone] * Telephone Encounter - Barbie Montanez - 12/08/2022 12:34 PM EDT Scripts received from provider and faxed to [facility] as requested. Patient notified. * Telephone Encounter - Dean Alvarado - 12/08/2022 12:06 PM EDT Tc from pt requesting status update on script for commode and shower chair, states would like script to sent to [facility]. Please contact at [phone] * Telephone Encounter - Barbie Montanez - 11/19/2022 3:16 PM EDT Scripts for shower chair and commode generated for signature * Telephone Encounter - Jareth Cifuentes - 11/19/2022 2:55 PM EDT Tc from pt requesting a script for a commode also a script for a shower chair. To be faxed to [facility] Please contact pt at [phone] documented in this encounter Plan of Treatment Not on file documented as of this encounter Visit Diagnoses Not on filedocumented in this encounter Additional Health Concerns Assessment Noted Time PHQ-9 Depression Total Score: 023 9:25 AM EDT documented as of this encounter Care Teams Neon Electrician Relationship Specialty Start Date End Date Princess Min FNP [address] [place] [address] PCP - General Family Medicine 03/20/22 12/26/23 Princess Min FNP [address] [place] [address] PCP - General Family Medicine 01/21/24 02/03/24 Princess Min FNP [address] [place] [address] PCP - General Family Medicine 02/10/24 documented as of this encounter
--- OUTSIDE RECORDS SUMMARY | 2024-09-22 12:00 | XMS_ITS | Encounter Summary ---
Author Organization [employer] Address [address] [facility] 7t [place] [address] Care Team Providers Care Lay Midwife Name Role Phone Princess Min Primary Care Provider [phone] Princess Min Primary Care Provider [phone] Princess Min Primary Care Provider [phone] Reason for Visit * Reason Onset Date Comments Appointment Request 11/20/2022 Encounter Details Date Type Department Care Team (Late st Contact Info) Description 11/20/2022 Telephone [facility] MEDICINE [address] [place] [address] Princess Min FNP [address] [place], [place] [phone] Appointment Request Social History Tobacco Use Types [...] to switching program. Please contact pt at [phone] South [place] Speaker documented in this encounter Plan of Treatment Not on file documented as of this encounter Visit Diagnoses Not on filedocumented in this encounter Additional Health Concerns Assessment Noted Time PHQ-9 Depression Total Score: 023 9:25 AM EDT documented as of this encounter Care Teams Lay Midwife Relationship Specialty Start Date End Date Princess Min FNP [address] [place] [address] PCP - General Family Medicine 03/20/22 12/26/23 Princess Min FNP [address] [place] [address] PCP - General Family Medicine 01/21/24 02/03/24 Princess Min FNP [address] [place] [address] PCP - General Family Medicine 02/10/24 documented as of this encounter
--- OUTSIDE RECORDS SUMMARY | 2024-09-22 12:00 | XMS_ITS | Encounter Summary ---
Author Organization [employer] Address [address] [facility] 7t [place] [address] Care Team Providers Care Patient Placement Coordinator Name Role Phone Princess Min Primary Care Provider Princess Min Primary Care Provider [phone] Princess Min Primary Care Provider Reason for Referral * Imaging (Routine) - Closed Specialty Diagnoses / Procedures Referred By Elaina t Referred To Contact Diagnoses Encounter for screening mammogram for malignant neoplasm of breast Procedures BI Mammogram Screening Bilateral Princess Min FNP [address] [place] [address] Phone: tel: fax: [address] Phone: tel: fax: Referral ID Status Reason Start Date Expiration Date Visits Re quested Visits Authorized [id number] Closed 11/23/2022 05/22/2023 1 1 Reason for Visit * Reason Onset Date Comments Referral 11/20/2022 Encounter Details Date Type Department Care Team (Late st Contact Info) Description 11/20/2022 Telephone [facility] MEDICINE [address] [place] [address] Princess Min FNP [address] [place], [place] [phone] Referral Social History Tobacco Use Types Packs/Day [...] EDT Please [place] [facility] and call to let Ms. Garcia know when completed. Thank you. * Telephone Encounter - Alissa Winkler - 11/20/2022 10:16 AM EDT Tc from pt requesting a mammogram referral . Location [facility]. documented in this [...] as of this encounter Care Teams Patient Placement Coordinator Relationship Specialty Start Date End Date Princess Min FNP [address] [place] [address] PCP - General Family Medicine 03/20/22 12/26/23 Princess Min FNP [address] [place] [address] PCP - General Family Medicine 01/21/24 02/03/24 Princess Min FNP [address] [place] [address] PCP - General Family Medicine 02/10/24 documented as of this encounter
--- OUTSIDE RECORDS SUMMARY | 2024-09-22 12:00 | XMS_ITS | Encounter Summary ---
Author Organization [employer] Address [address] [facility] 7t [place] [address] Care Team Providers Care Area Attendant Name Role Phone Princess Min Primary Care Provider [phone] Princess Min Primary Care Provider [phone] Princess Min Primary Care Provider [phone] Reason for Visit * Reason Onset Date Comments Durable Medical Equipment 10/27/2022 Encounter Details Date Type Department Care Team (Late st Contact Info) Description 10/27/2022 Telephone [facility] MEDICINE [address] [place] [address] Princess Min FNP [address] [place], [place] [phone] Durable Medical Equipment Social History Tobacco Use [...] shower head, script to be send to [facility]. documented in this encounter Plan of Treatment Not on file documented as of this encounter Visit Diagnoses Not on filedocumented in this encounter Care Teams Area Attendant Relationship Specialty Start Date End Date Princess Min FNP [address] [place] [address] PCP - General Family Medicine 03/20/22 12/26/23 Princess Min FNP [address] [place] [address] PCP - General Family Medicine 01/21/24 02/03/24 Princess Min FNP [address] [place] [address] PCP - General Family Medicine 02/10/24 documented as of this encounter
--- OUTSIDE RECORDS SUMMARY | 2024-09-22 12:00 | XMS_ITS | Encounter Summary ---
Author Organization [employer] Address 75 [facility] 7t [place] [address] Care Team Providers Care Telephone Answering Service Operator Name Role Phone Princess Min Primary Care Provider [phone] Princess Min Primary Care Provider [phone] Princess Min Primary Care Provider [phone] Reason for Visit * Reason Onset Date Comments PT1 request 10/19/2022 Encounter Details Date Type Department Care Team (Late st Contact Info) Description 10/19/2022 Telephone [facility] MEDICINE [address] [place] [address] Princess Min FNP [address] [place], [place] [phone] PT1 request Social History Tobacco Use Types [...] / denial letter via mail. PT-1 Request [id number] Authorized - [employer] PT-1 Request [id number] Pending [facility] [address] [place] [address] * Telephone Encounter - Alissa Winkler - 10/19/2022 11:55 AM EDT Tc from pt requesting PT1 Location:[facility] Specialty: Provider Date&Time:N/a Wildlife Policy Professional: yes Uses cane Location: [facility] Specialty: Orthopedics Date&Time: N/a Wildlife Policy Professional: Yes Location:2 [facility] Specialty: [facility] Date&Time:N/a Wildlife Policy Professional: yes documented in this encounter Plan of Treatment Not on file documented as of this encounter Visit Diagnoses Not on filedocumented in this encounter Care Teams Telephone Answering Service Operator Relationship Specialty Start Date End Date Princess Min FNP [address] [place] [address] PCP - General Family Medicine 03/20/22 12/26/23 Princess Min FNP [address] [place] [address] PCP - General Family Medicine 01/21/24 02/03/24 Princess Min FNP [address] [place] [address] PCP - General Family Medicine 02/10/24 documented as of this encounter
--- OUTSIDE RECORDS SUMMARY | 2024-09-22 12:00 | XMS_ITS | Encounter Summary ---
Author Organization [employer] Address [address] [facility] 7t [place] [address] Care Team Providers Care Meter Changes Records Clerk Name Role Phone Princess Min Primary Care Provider [phone] Reason for Visit * Reason Onset Date Comments Pre op 06/12/2024 Encounter Details Date Type Department Care Team (Late st Contact Info) Description 06/12/2024 Telephone [facility] MEDICINE [address] [place] [address] Princess Min FNP [address] [place], [place] [phone] Pre op Social History Tobacco Use Types [...] Yes Surgeon's name: Dr Laureano Facility name: [facility] Surgeon's office number: [phone] Surgeon's office fax number: [phone] Contact name (person you spoke with): Stephanie [...] documented as of this encounter Care Teams Meter Changes Records Clerk Relationship Specialty Start Date End Date Princess Min FNP [address] [place] [address] PCP - General Family Medicine 02/10/24 documented as of this encounter
--- OUTSIDE RECORDS SUMMARY | 2024-09-22 12:00 | XMS_ITS | Encounter Summary ---
Author Organization [employer] Address [address] [facility] 7t [place] [address] Care Team Providers Care Zmt Operator Name Role Phone Princess Min Primary Care Provider [phone] Princess Min Primary Care Provider [phone] Princess Mni Primary Care Provider Reason for Visit * Reason Onset Date Comments Triage 10/19/2022 Encounter Details Date Type Department Care Team ([facility] st Contact Info) Description 10/19/2022 Telephone [facility] MEDICINE [address] [place] [address] Princess Min FNP [address] [place], [place] [phone] Triage Social History Tobacco Use Types Packs/Day [...] EDT Triage call returned to patient via [employer] 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 Patient reports only mild wheezing using albuterol [...] accepted this outcome Please contact pt at [phone] Czech speaker documented in this encounter Plan of Treatment Not on file documented as of this encounter Visit Diagnoses Not on filedocumented in this encounter Care Teams Zmt Operator Relationship Specialty Start Date End Date Princess Min FNP [address] [place] [address] PCP - General Family Medicine 03/20/22 12/26/23 Princess Min FNP [address] [place] [address] PCP - General Family Medicine 01/21/24 02/03/24 Princess Min FNP [address] [place] [address] PCP - General Family Medicine 02/10/24 documented as of this encounter
--- OUTSIDE RECORDS SUMMARY | 2024-09-22 12:00 | XMS_ITS | Encounter Summary ---
Author Organization [employer] Address [address] [facility] 7t [place] [address] Care Team Providers Care Marble Coper Name Role Phone Princess Min Primary Care Provider [phone] Princess Min Primary Care Provider [phone] Princess Min Primary Care Provider [phone] Reason for Visit * Reason Onset Date Comments PT1 11/20/2022 Encounter Details Date Type Department Care Team (Late st Contact Info) Description 11/20/2022 Telephone [facility] MEDICINE [address] [place] [address] Princess Min FNP [address] [place], [place] [phone] PT1 Social History Tobacco Use Types Packs/Day [...] / denial letter via mail. PT-1 Request [id number] Authorized - [facility] [address] [address] * Telephone Encounter - Mayur Thomas - 11/20/2022 9:19 AM EDT Tc from pt requesting to Renew PT1 for Name of facility: n/a Specialty: All Future appts Location: [address] [place] [address] Date: n/a Time: n/a fax: n/a Phone: n/a wheelchair: n/a Mammographer: Yes (Adult) For all future appts documented in this encounter Plan of Treatment Not on file documented as of this encounter Visit Diagnoses Not on filedocumented in this encounter Additional Health Concerns Assessment Noted Time PHQ-9 Depression Total Score: 24 023 9:25 AM EDT documented as of this encounter Care Teams Marble Coper Relationship Specialty Start Date End Date Princess Min FNP [address] [place] [address] PCP - General Family Medicine 03/20/22 12/26/23 Princess Min FNP [address] [place] [address] PCP - General Family Medicine 01/21/24 02/03/24 Princess Min FNP [address] [place] [address] PCP - General Family Medicine 02/10/24 documented as of this encounter
--- OUTSIDE RECORDS SUMMARY | 2024-09-22 12:00 | XMS_ITS | Encounter Summary ---
Author Organization [employer] Address [address] [facility] 7t [place] [address] Care Team Providers Care Certified Optician Name Role Phone Princess Min Primary Care Provider [phone] Princess Min Primary Care Provider [phone] Princess Min Primary Care Provider [phone] Reason for Visit * Reason Onset Date Comments Referral 11/20/2022 Encounter Details Date Type Department Care Team (Late st Contact Info) Description 11/20/2022 Telephone [facility] MEDICINE [address] [place] [address] Princess Min FNP [address] [place], [place] [phone] Referral Social History Tobacco Use Types Packs/Day [...] would like to see [place] Deras [place] [facility] because of her strong family hx of [...] Specialty: [facility] Location:[address] [place] [address] Dr Dorsey [address] [place] [address] Date&Time: n/a Cemetery Keeper: n/a Please call pt to clarify. documented in this encounter Plan of Treatment Not on file documented as of this encounter Visit Diagnoses Not on filedocumented in this encounter Additional Health Concerns Assessment Noted Time PHQ-9 Depression Total Score: 023 9:25 AM EDT documented as of this encounter Care Teams Certified Optician Relationship Specialty Start Date End Date Princess Min FNP [address] [place] [address] PCP - General Family Medicine 03/20/22 12/26/23 Princess Min FNP [address] [place] [address] PCP - General Family Medicine 01/21/24 02/03/24 Princess Min FNP [address] [place] [address] PCP - General Family Medicine 02/10/24 documented as of this encounter
--- OUTSIDE RECORDS SUMMARY | 2024-09-22 12:00 | XMS_ITS | Encounter Summary ---
Author Organization [employer] Address [address] [facility] 7t [place] [address] Care Team Providers Care Metal Fabricator Name Role Phone Princess iMn Primary Care Provider [phone] Reason for Visit * Reason Comments Med Refill Encounter Details Date Type Department Care Team ([facility] st Contact Info) Description 04/25/2024 Refill [facility] MEDICINE [address] [place] [address] Princess iMn FNP [address] [place], [place] [phone] Social History Tobacco Use Types Packs/Day Years [...] documented as of this encounter Care Teams Metal Fabricator Relationship Specialty Start Date End Date Princess Min FNP [address] [place] [address] PCP - General Family Medicine 02/10/24 documented as of this encounter
--- OUTSIDE RECORDS SUMMARY | 2024-09-22 12:01 | XMS_ITS | Encounter Summary ---
Author Organization [employer] Address [address] [facility] 7t [place] [address] Care Team Providers Care Caterpillar Mechanic Name Role Phone Princess Min Primary Care Provider [phone] Princess Min Primary Care Provider [phone] Princess Min Primary Care Provider [phone] Reason for Visit * Reason Comments Med Refill Encounter Details Date Type Department Care Team (Late st Contact Info) Description 08/07/2022 Refill [facility] MEDICINE [address] [place], [place] [phone] Princess Min FNP [address] [place], [place] [phone] Cervical spondylosis Social History Tobacco Use Types [...] myelopathy documented in this encounter Care Teams Caterpillar Mechanic Relationship Specialty Start Date End Date Princess Min FNP [address] [place], [place] [phone] PCP - General Family Medicine 03/20/22 12/26/23 Princess Min FNP [address] [place] [address] PCP - General Family Medicine 01/21/24 02/03/24 Princess Min FNP [address] [place] [address] PCP - General Family Medicine 02/10/24 documented as of this encounter
--- OUTSIDE RECORDS SUMMARY | 2024-09-22 12:01 | XMS_ITS | Encounter Summary ---
Author Organization [employer] Address [address] [facility] 7t [place] [address] Care Team Providers Care Mva Still Operator Name Role Phone Princess Min REFRACTORY GRINDER OPERATOR Primary Care Provider [phone] Encounter Details Date Type Department Care Team (Late st Contact Info) Description 09/21/2024 Orders Only GENERIC EXTERNAL DATA DEPARTMENT Provider, [...] Procedure Name Priority Date/Time Associated Diagnosis Comments TYPE AND SCREEN Routine 09/21/2024 10:15 AM EST documented in this encounter Results * Type and screen (09/21/2024 10:15 AM EST) Blood Type OP [facility] Antibody Screen NEGATIVE [facility] 09/21/2024 10:1 5 AM EST 09/21/2024 10:33 AM EST Narrative [facility] - 09/21/2024 11:18 AM EST WITNESSED BY TADNURSING:Call Blood Bank (ext. [phone]) to band patient on admission.Type and Screen in effect until 2300 on [id number] expiration changed by SRI on 09/21/24Reason: PAT SPEC us Generic External Data Provider LAB BLOOD BANK TE ST ORDERABLES Final Result [facility] [address] [place] [address] [phone] documented in this encounter Visit Diagnoses Not on filedocumented in this encounter Additional Health Concerns Assessment Noted Time PHQ-9 Depression Total Score: 3 03/03/20 24 11:33 AM EDT documented as of this encounter Care Teams Mva Still Operator Relationship Specialty Start Date End Date Princess Mni FNP [address] [place] [address] PCP - General Family Medicine 02/10/24 documented as of this encounter
--- OUTSIDE RECORDS SUMMARY | 2024-09-22 12:01 | XMS_ITS | Patient Health Record ---
Author Organization [facility] Address [address] [place] [address] Care Team Providers Care Sheriff Sergeant Name Role Phone OMERO SOTO MD Primary Care Provider Aidan Fried Jr Unavailable REASON FOR REFERRAL Referring Provider First Name OMERO Referring Provider Last Name CHARLES Referred Organization [facility] Referred Provider Aidan Silva Jr Referred Address [address],[facility] [address],[place],[address], Referred Provider Specialty Gastroentero logy Referral Priority Routine SOCIAL HISTORY Sex Assigned At : Social History Observation Description Sex Assigned At Unknown Encounters Encounter Location Date Provider Diagnosis [facility] [address] [place] [address] 06/26/2024 Aidan Silva Jr [facility] [address] [place] [address] 06/21/2024 Aidan Silva Jr PLAN OF TREATMENT No Information Insurance Providers Payer Name Payer Address Payer Phone Subscriber Number Group Number Insured Name Patient Relationship to Insured Coverage Start Date Coverage End Date [place] [address] [place] [id number] MELINA CARLISLE NIELS Self - patient is the insured
--- OUTSIDE RECORDS SUMMARY | 2024-09-22 12:01 | XMS_ITS ---
Author Organization [facility] Address [address] [place] [address] Care Team Providers Care Press Tender Long Goods Name Role Phone OMERO SOTO MD Primary Care Provider Naun Silva Jr, Aidan Unavailable [phone] REASON FOR VISIT conf appt Encounters Encounter Location Date Provider Diagnosis [facility] [address] [place] [address] 06/21/2024 Aidan Silva Jr PLAN OF TREATMENT No Information
--- OUTSIDE RECORDS SUMMARY | 2024-09-22 12:01 | XMS_ITS | Encounter Summary ---
Author Organization [employer] Address [address] [facility] 7t [place] [address] Care Team Providers Care Realty Specialist Name Role Phone Princess Min OIL BURNER MECHANIC Primary Care Provider [phone] Reason for Visit * Reason Onset Date Comments Med Refill Pre-op Exam 09/21/2024 Encounter Details Date Type Department Care Team (Late st Contact Info) Description 09/21/2024 Refill [facility] [address] [place], [place] [phone] Princess Min FNP [address] [place] [address] Type 2 diabetes mellitus with hyperglycemia, with long-term current use of insulin ([facility]) Social History Tobacco Use Types Packs/Day [...] encounter Miscellaneous Notes * Telephone Encounter - Ebony Mercado [place] - 09/21/2024 10:08 AM EST Notes [place] [facility] [place] [place] (otho surgeon) documented in this encounter Plan of Treatment Not on file documented as of this encounter Visit Diagnoses Diagnosis Type 2 diabetes mellitus with hyperglycemia, with long-term current use of insulin ([facility]) documented in this encounter Additional Health Concerns Assessment Noted Time PHQ-9 Depression Total Score: 3 03/03/20 24 11:33 AM EDT documented as of this encounter Care Teams Realty Specialist Relationship Specialty Start Date End Date Princess Min FNP [address] [place] [address] PCP - General Family Medicine 02/10/24 documented as of this encounter
--- OUTSIDE RECORDS SUMMARY | 2024-09-22 12:01 | XMS_ITS | Encounter Summary ---
Author Organization [employer] Address [address] [facility] 7t [place] [address] Care Team Providers Care Azure Architect Name Role Phone Princess Min Primary Care Provider [phone] Princess Min Primary Care Provider [phone] Reason for Visit * Reason Comments Med Change Request Encounter Details Date Type Department Care Team ([facility] Contact Info) Description 12/30/2023 Refill [facility] [address] [place], [place] [phone] Princess Min FNP [address] [place], [place] [phone] Social History Tobacco Use Types Packs/Day Years [...] documented as of this encounter Care Teams Azure Architect Relationship Specialty Start Date End Date Princess Min FNP [address] [place] [address] PCP - General Family Medicine 01/21/24 02/03/24 Princess Min FNP [address] [place] [address] PCP - General Family Medicine 02/10/24 documented as of this encounter
--- OUTSIDE RECORDS SUMMARY | 2024-09-22 12:01 | XMS_ITS | Clinical Summary ---
Author Organization [employer] Address [address] [facility] [address] [place] [address] Care Team Providers Care Completion Manager Name Role Phone Princess Min FILLER SHREDDER Primary Care Provider [phone] Allergies Active Allergy Reactions Criticality Noted Date [...] nostril(s). 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 maria fernanda diastolic heart failure ([facility]) Take 2 tablets by mouth once daily in the morning 180 tablet 1 2022 Active TRUEplus Lancets 33G miscIndications:Type 2 diabetes mellitus with hyperglycemia, unspecified whether fpc insulin use ([facility]) TEST BLOOD SUGAR TWICE DAILY 100 each [...] tablet 3 2023 Active insulin pen needle (UltiGuard SafePack Pen Needle) 32G x 4 mm miscIndications:Type 2 diabetes mellitus with hyperglycemia, with long-term current use of insulin ([facility]) USE WITH INSULIN DIRECTED 100 each 11 2023 Active metFORMIN (Glucophage) 500 MG tablet Take 2 tablets by mouth 2 times daily. 2023 Active glucose blood (FREESTYLE LITE) test stripIndications:Type 2 diabetes mellitus without complication, with long-term current use of insulin ([facility]) Test blood sugar twice daily 100 strip [...] 2 diabetes mellitus without complication, unspecified whether fpc insulin use ([facility]) TAKE 1 TABLET BY MOUTH EVERY MORNING [...] complication, with long-term current use of insulin (CMS/HCC) Use as instructed with Victoza injections 100 each 12 06/14 Active Dulaglutide (Trulicity) 0.75 MG/0.5ML solution auto-injectorIndicatio ns:Type 2 diabetes mellitus without complication, with long-term current use of insulin (CMS/HCC) Inject 0.5 mL (0.75 mg) under the [...] WEAR SOCKS TO BED 225 g 3 2024 Active albuterol (2.5 MG/3ML) 0.083% nebulizer solution [...] at bedtime. 30 tablet 11 09/15 Active oxyCODONE (Roxicodone) 5 MG immediate release tabletIndications:Hist ory of total knee arthroplasty, left Take 1 tablet (5 mg) by mouth if needed each day for severe pain for up to 5 days. 5 tablet 09/23 Active Lantus SoloStar 100 UNIT/ML penIndications:Type 2 diabetes mellitus with hyperglycemia, with long-term current use of insulin ([facility]) INJECT 28 UNITS SUBCUTANEOUSLY AT BEDTIME 15 mL 3 2024 Active albuterol (2.5 MG/3ML) 0.083% nebulizer solution [...] Reorder (will not trigger notification to Pharmacy)) insulin glargine (Lantus SoloStar) 100 UNIT/ML penIndications:Type 2 diabetes mellitus with hyperglycemia, with long-term current use of insulin ([facility]) Inject 28 Units under the skin at bedtime. 15 mL 3 09/21 Discontinued topiramate (Topamax) 200 MG tabletIndications:Othe r migraine [...] Reorder (will not trigger notification to Pharmacy)) predniSONE (Deltasone) 20 MG tablet Take 2 tablets (40 mg) by mouth Once per day for 5 days. 10 tablet 09/20 Active Problems Problem Noted Date Diagnosed Date History of total knee arthroplasty, left 024 Overview (04/02/2024): 06/09/23 [place] [facility] [place]. 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 Laureano ([facility]) Assessment & Plan (03/04/2024 6:12 PM [...] although difficulties with insurance coverage. -Spoke with [facility] pharmacy, will attempt to change to generic albuterol to see if works better for pt Diastolic heart failure 02/03/2017 Overview (05/28/2024): -Continues on Irbestartan 300mg daily at bedtime, furosemide 40mg daily, on SGLT2 -Following with [facility] - Dr. Calle -Pt denies SOB, swelling [...] reviewed -Pt to follow up with [facility] Previous medications: - Ozempic (DC in [...] MCKEON, or palpitations -Previously followed by [facility], pt will call to schedule f/u Lab Results Component Value Date TSH 0.33 04/05/2023 Insomnia 05/27/2016 Trigger finger 05/27/2016 Overview (05/28/2024): Followed by [facility] PRN Vitamin D deficiency 04/17/2014 Cobalamin deficiency 03/23/2014 Mixed anxiety and depressive disorder 10/06/2013 Assessment & Plan (05/28/2024 7:27 AM EST): -Following with psych team from [facility] -Continue with Wellbutrin 300mg daily, -Denies [...] Encounters Date Type Department Care Team Description 09/21/2024 Orders Only GENERIC EXTERNAL DATA DEPARTMENT Provider, Generic External Data 09/21/2024 Refill [facility] [address] [place] [address] Princess Min, FILLER SHREDDER Type 2 diabetes mellitus with hyperglycemia, with long-term current use of insulin (CMS/HCC) 09/20/2024 9:00 AM EST Office Visit [facility] [address] [place] [address] JeseCarri, FILLER SHREDDER Chronic pain of left knee (Primary Dx); Preop examination; Type 2 diabetes mellitus without complication, with long-term current use of insulin (CMS/HCC); Essential hypertension; Mild persistent asthma without complication 09/20/2024 Travel 09/18/2024 10:15 AM EST Office Visit [facility] [address] [place] [address] Phalida Princess, FILLER SHREDDER Moderate persistent asthma without complication (Primary Dx); History of total knee arthroplasty, left; Encounter for screening mammogram for malignant neoplasm of breast; Healthcare maintenance; Routine health maintenance; Type 2 diabetes mellitus without complication, with long-term current use of insulin (CMS/HCC) 09/18/2024 Telephone [facility] [address] [place] [address] Phalida Princess, FILLER SHREDDER Durable Medical Equipment 09/18/2024 Travel 09/15/2024 1:20 PM EST Office Visit [facility] [address] [place] [phone] Alvaro Rocha MD Acute cough (Primary Dx); Wheezing; Nasal congestion; Moderate persistent asthma without complication 09/15/2024 Telephone [facility] [address] [place] [phone] Phalida Princess, FILLER SHREDDER Nurse Triage 09/15/2024 Refill [facility] [address] [place] [phone] Phalida Princess, FILLER SHREDDER 09/14/2024 Refill [facility] [address] [place] [phone] Phalida Princess, FILLER SHREDDER Other migraine without status migrainosus, not intractable 09/14/2024 Telephone [facility] [address] [place] [address] Abdifatah Martinez MA Chart Prep 09/12/2024 Refill [facility] [address] [place] [phone] Phalen Princess, FILLER SHREDDER Major depressive disorder, recurrent, moderate (CMS/HCC); Anxiety disorder, unspecified 09/12/2024 Telephone [facility] [address] [place] [phone] Phalida Princess, FILLER SHREDDER Durable Medical Equipment 09/11/2024 Refill [facility] [address] [place] [phone] Phalida Princess, FILLER SHREDDER Other migraine without status migrainosus, not intractable 09/07/2024 Refill [facility] [address] [place] [address] Princess Min FNP 09/04/2024 Orders Only GENERIC EXTERNAL DATA DEPARTMENT Provider, Generic External Data 08/17/[address] [address] Princess Min FNP Pre-Op appt. 08/16/2024 Telephone [facility] [address] [place] [phone] Princess Min FNP No Show 08/15/2024 Travel 08/15/2024 Telephone [facility] [address] [place] [address] Princess Min FNP July08/13/2024 Refill [facility] [address] [place] [phone] Princess Min FNP Primary hypertension 07/20/2024 Telephone [facility] [address] [place] [address] Abdifatah Martinez MA Chart Prep 07/18/2024 Telephone [facility] [address] [place] [phone] Princess Min FNP Chart Prep 07/18/2024 Refill [facility] [address] [place] [phone] Princess Min FNP Cobalamin deficiency 07/17/2024 Refill [facility] [address] [place] [address] Princess Min FNP Acute otitis externa of left ear, unspecified type; Intermittent diarrhea 07/14/2024 Travel 07/14/2024 Telephone [facility] [address] [place] [address] Alexandria Jama RN 07/13/2024 Telephone [facility] [address] [place] [phone] Princess Min FNP Med Refill 07/13/2024 Telephone [facility] [address] [place] [phone] Princess Min FNP FYI 07/13/2024 Refill [facility] [address] [place] [address] Princess Min FNP 07/10/2024 Telephone [facility] [address] [place] [address] Princess Min FNP Prior Authorization 06/29/2024 Telephone [facility] [address], [place] [phone] Princess Min FNP PA; Change PCP from Last 3 Months Immunizations Name Administration Dates Next Due Hep B, adult 05/19/2018,08/20/2017,07/16/2017 Influenza Injectable Quadriv alant Preservative Free IIV4 MDCK 05/05/2023,04/28/2022 Influenza injectable quadriv alent IIV4 with preservative 05/19/2018,05/18/2016 Influenza injectable quadriv alent preservative free 05/20/2021,06/12/2020,07/14/2019,07/16 Influenza, IIV3, injectable 04/17/2014, 0 Influenza, Split (incl. manohar fied surface antigen) 05/15/2013,06/09/2012 Influenza, injectable, quadr ivalent, preservative free, pediatric 05/18/2016 Moderna Covid-19 Vaccine 12+ 08/06/2021,12/04/19 21,10/11/2020 Moderna Covid-19 Vaccine 6+ Bivalent 12/08/2022 Pneumococcal [...] 03/03/2025 03/03/2024 Depression Screening 03/03/2025 03/03/2024, 03/03/20 24 SDOH Screening 03/03/2025 03/03/2024 COVID-19 Vaccine ( season) 2025 12/08/2022, 08/06/2021, 12/03/2020, Additional history exists Postponed from 03/26/2024 (Patient Refused) Diabetes: Urine Protein Screening 09/18/2025 09/18/2024, 04/05/2023, 03/11/2021, Additional history exists Lipid Panel 09/18/2025 09/18/2024, 03/26, 10/07/2021, Additional history exists Tobacco Screening 09/20/2025 09/20/2024 Colonoscopy 05/24/2027 05/24/2017 Colorectal Cancer Screening 05/24/2027 [...] AND SCREEN Routine 09/21/2024 10:15 AM EST ECG 12-LEAD Routine 09/20/2024 4:21 PM EST Preop examination PROTHROMBIN TIME-INR Routine 09/20/2024 9:54 AM EST Preop examination POCT GLYCATED HEMOGLOBIN, TOTAL Routine 09/20/2024 9:03 AM EST Type 2 diabetes mellitus without complication, with long-term current use of insulin ([facility]) POCT GLUCOSE Routine 09/20/2024 9:02 AM EST Type 2 diabetes mellitus without complication, with long-term current use of insulin (CMS/HCC) ALBUMIN, RANDOM URINE W/CREATININE Routine 09/18/2024 11:31 [...] 10/16/2022 12:26 PM EDT Routine health maintenance COLONOSCOPY Routine 05/24/2017 from Last 3 Months or Most Recently Relevant to Health Maintenance Results * Type and screen (09/21/2024 10:15 AM EST) Blood Type OP [facility] Antibody Screen NEGATIVE [facility] 09/21/2024 10:1 5 AM EST 09/21/2024 10:33 AM EST Narrative [facility] - 09/21/2024 11:18 AM EST WITNESSED BY FRANCIAING:Call Blood Bank (ext. [phone]) to band patient on admission.Type and Screen in effect until 2300 on [id number] expiration changed by SRI on 09/21/24Reason: PAT SPEC Generic External Data Provider LAB BLOOD BANK TE ST ORDERABLES Final Result [facility] [address] [place] [address] [phone] * ECG 12 lead (09/20/2024 4:21 PM EST) [place] Carri, [facility] - 09/20/2024 4:21 PM EST NSR [facility] ECG ORDERABLES Final Result * (ABNORMAL) Prothrombin Time-INR (09/20/2024 9:54 AM EST) Prothrombin Time 10.3(L) 10.9 - 12.4 SEC [facility] INTERNATIONAL NORM RATIO 0.9 0.9 - 1.1 [facility] Comment:INTERNATIONAL NORMAL IZED RATIO (INR) REFERENCE RANGES Reference RangeFor patients not on anticoagulant therapy: 0.9 - 1.1INR ranges for oral anticoagulanttherapy:For prevention and treatment of venous thrombosis and pulmonary embolism: 2.0 - 3.0For acute myocardial infarction with aspirin therapy: 2.0 - 3.0For acute myocardial infarction without aspirin therapy: 3.0 - 4.0For patients with mechanical prosthetic heart valves: 2.5 - 3.5 Blood Venous blood specimen / Unknown 09/20/2024 9:54 AM EST 09/20/2024 2:18 PM EST [facility] LAB BLOOD ORDERABLES Final Re sult Performing Organization Address City/State/[facility] Co de Phone Number [facility] [address] [place] [phone] * (ABNORMAL) POCT A1C (09/20/2024 9:03 AM EST) Hemoglobin A1C 7.9(A) 4.0 - 6.0 % QC Media Lot # Comment:[id number] Lot# Expiration Date Comment:05/12/2026 Blood 09/20/2024 9:03 AM EST [facility] POINT OF CARE TEST ENTER/EDIT ORDERABLES Final Result * (ABNORMAL) POCT glucose manually resulted (09/20/2024 9:02 AM EST) Glucose Blood, POC 256(A) 60 - 200 mg/dL QC Media Lot # Comment:[id number] Lot# Expiration Date Comment:01/25/2025 Blood Capillary blood specimen / Unknown 09/20/2024 9:02 AM EST [facility] POINT OF CARE TEST ENTER/EDIT ORDERABLES Final Result * Albumin, Random Urine W/Creatinine (09/18/2024 11:31 AM EST) Creatinine, Urine 65.49 mg/dL [facility] Microalbumin Urine 8.0 mg/L [facility] Microalbum Creatinine Ratio Ur 12.2 <30 ug/mg cr [facility] Comment:Albumin/Creatinine R atio Reference Ranges: Normal: < 30 ug/mg creatinine Microalbuminuria: 30 - 300 ug/mg creatinineClinical Albuminuria: > 300 ug/mg creatinine Urine 09/18/2024 11:3 1 AM EST 09/18/2024 2:41 PM EST Princess Min FILLER SHREDDER LAB URINE ORDERABLES Final Res ult [facility] [address] [place] [phone] * (ABNORMAL) CBC auto differential (09/18/2024 11:22 AM EST) White Blood Count 8.1 4.8 - 10.8 X10*3/uL [facility] Red Blood Count 4.26 4.20 - 5.50 X10*6/uL [facility] Hemoglobin 12.9 12.0 - 16.0 g/dl [facility] Hematocrit 37.8 37.0 - 47.0 % [facility] Mean Corpuscular Volume 88.7 80.0 - 98.0 fL [facility] Mean Corpuscular Hemoglobin 30.3 27.0 - 33.0 pg [facility] Mean Corpuscular HGB Conc 34.1 31.0 - 35.0 g/dl [facility] Red Cell Distribution Width 12.9 11.0 - 16.0 % [facility] Platelet Count 247 160 - 400 X10*3/uL [facility] Mean Platelet Volume 10.7 9.4 - 12.3 fL [facility] Neutrophils Percent Auto 67.4 45 - 73 % [facility] Imm Gran Pct Auto 1.7(H) 0.0 - 0.4 % [facility] Lymphocytes Percent Auto 24.5 20 - 40 % [facility] Monocytes Percent Auto 5.3 2 - 11 % [facility] Eosinophils Percent Auto 0.6 0 - 4 % [facility] Basophils Percent Auto 0.5 0 - 2 % [facility] NRBC Pct Auto 0.0 0.0 - 0.2 /100WBC [facility] Neutrophils Absolute Auto 5.5 2.0 - 8.3 x10*3/uL [facility] Imm Gran Abs Auto 0.14(H) 0.00 - 0.03 X10*3/uL [facility] Lymphocytes Absolute Auto 2.0 1.2 - 4.9 X10*3/uL [facility] Monocytes Absolute Auto 0.4 0.1 - 1.2 X10*3/uL [facility] Eosinophils Absolute Auto 0.1 0.0 - 0.4 X10*3/uL [facility] Basophils Absolute Auto 0.0 0.0 - 0.2 X10*3/uL [facility] NRBC Abs Auto 0.000 0.0 - 0.012 X10*3/uL [facility] Blood Venous blood specimen / Unknown 09/18/2024 11:22 AM EST 09/18/2024 2:41 PM EST [address] [facility] BLOOD ORDERABLES Final Res ult [facility] [address] [place] [phone] * HIV-1/2 Antigen and Antibodies, Fourth Generation, with Reflexes (09/18/2024 11:22 AM EST) HIV AB/AG Nonreactive Nonreactive [facility] Comment:HIV-1 p24 Ag and/or HIV-1/HIV-2 Ab not detected.A test result that is nonreactive does not exclude thepossibility of exposure to or infection with HIV-1 and/orHIV-2. Nonreactive results in this assay for individualswith prior exposure to HIV-1 and/or HIV-2 may be due toantigen and antibody levels that are below the limit ofdetection of this assay.The SiBEAM HIV Ag/Ab Combo assay result andsupplemental assay results should be interpreted inconjunction with the patient's clinical presentation,history and other laboratory results. If the results areinconsistent with clinical evidence, additional testing issuggested to confirm the result. Blood Venous blood specimen / Unknown 09/18/2024 11:22 AM EST 09/18/2024 2:41 PM EST us Princess Min FILLER SHREDDER LAB BLOOD ORDERABLES Final Res ult Performing Organization Address [facility]/ZIP Co de Phone Number [facility] [address] [place] [phone] * TSH with Reflex to Free T4 (09/18/2024 11:02 AM EST) TSH reflex Free T4 0.97 0.32 - 4.0 uIU/mL [facility] Blood 09/18/2024 11:0 2 AM EST 09/18/2024 2:41 PM EST us Princess Min FILLER SHREDDER LAB BLOOD ORDERABLES Final Res ult Performing Organization Address [facility] Co de Phone Number [facility] [address] [place] [phone] * Lipid Panel, Standard (09/18/2024 11:02 AM EST) Triglycerides 136 <150 mg/dL [facility] Comment:Desirable Triglyceri de: less than 150 mg/dLBorderline High Triglyceride 150-199 mg/dLHigh Triglyceride: 200-499 mg/dLVery High Triglyceride: greater than or equal to 5OO mg/dL Cholesterol 156 <200 mg/dL [facility] Comment:Desirable Cholestero l: less than 200 mg/dLBorderline High Cholesterol: 200-239 mg/dLHigh Cholesterol: greater than 239 mg/dL LDL Cholesterol Calculated 75 <100 mg/dL [facility] Comment:Desirable LDL: less than 100 mg/dLNear Optimal/Above Optimal LDL: 110- 129 mg/dLBorderline High LDL: 130-159 mg/dLHigh LDL: 160-189 mg/dLVery High LDL: greater than or equal to 190 mg/dL HDL Cholesterol 54 >40 mg/dL [facility] Comment:Desirable HDL: great er than 40 mg/dL Note: This HDL assay may give artificially low results in patients with liver disease. Blood Venous blood specimen / Unknown 09/18/2024 11:02 AM EST 09/18/2024 2:41 PM EST us Princess Min FILLER SHREDDER LAB BLOOD ORDERABLES Final Res ult [facility] [address] [place] [phone] * (ABNORMAL) Comprehensive Metabolic Panel (09/18/2024 11:02 AM EST) Sodium 139 135 - 145 mmol/L [facility] Potassium 4.0 3.3 - 5.1 mmol/L [facility] Comment:Slight Hemolysis.Int erpret result with caution. Chloride 106 96 - 108 mmol/L [facility] Carbon Dioxide 24 22 - 29 mmol/L [facility] Anion Gap 13 12 - 20 [facility] Urea Nitrogen (BUN) 17(H) 9 - 16 mg/dL [facility] Creatinine, Serum 0.89 0.5 - 1.4 mg/dL [facility] Estimated Glomerular Filt Rate >60 [facility] Comment:Chronic Kidney Disea se: Estimated GFR < 60 mL/min/[id number] Kidney Disease: Estimated GFR < 15 mL/min/1.73m2 Glucose 255(H) 60 - 115 mg/dL [facility] Calcium 9.0 8.4 - 10.2 mg/dL [facility] Bilirubin, Total 0.4 0.0 - 1.0 mg/dL [facility] Aspartate Amino Transferase 17 5 - 31 U/L [facility] Comment:Slight Hemolysis.Int erpret result with caution. Alanine Aminotransferase 27 0 - 31 U/L [facility] Total Protein 7.5 6.5 - 8.0 g/dL [facility] Albumin Level 3.9 3.5 - 5.0 g/dL [facility] Alkaline Phosphatase 104 39 - 117 U/L [facility] Blood Venous blood specimen / Unknown 09/18/2024 11:02 AM EST 09/18/2024 2:41 PM EST us Princess Min FILLER SHREDDER LAB BLOOD ORDERABLES Final Res ult Performing Organization Address City/[facility]/ZIP Co de Phone Number [facility] [address] [place] [phone] * Influenza B (ID NOW Rapid Molecular) (09/15/2024 1:18 PM EST) Influenza B Negative Negative, Indeterminate [facility] Swab 09/15/2024 1:18 PM EST us Alvaro Rocha MD POINT OF CARE TEST ENTER/EDIT OR DERABLES Final Result Performing Organization Address [facility] Co de Phone Number [facility] [address] [place] [phone] * Influenza A (ID NOW Rapid Molecular) (09/15/2024 1:18 PM EST) Influenza A Negative Negative, Indeterminate [facility] Swab 09/15/2024 1:18 PM EST us Alvaro Rocha MD POINT OF CARE TEST ENTER/EDIT OR DERABLES Final Result Performing Organization Address [facility]/ZIP Co de Phone Number [facility] [address] [place] [phone] * POCT Rapid COVID Ag (09/15/2024 1:18 PM EST) Rapid COVID Ag Negative [facility] Swab 09/15/2024 1:18 PM EST us Alvaro Rocha MD POINT OF CARE TEST ENTER/EDIT OR DERABLES Final Result Performing Organization Address [facility]/ZIP Co de Phone Number [facility] [address] [place] [address] [phone] * CBC (09/04/2024 11:40 AM EST) White Blood Count 5.8 4.8 - 10.8 X10*3/uL [facility] Red Blood Count 4.27 4.20 - 5.50 X10*6/uL [facility] Hemoglobin 13.1 12.0 - 16.0 g/dl [facility] Hematocrit 39.7 37.0 - 47.0 % [facility] Mean Corpuscular Volume 93.0 80.0 - 98.0 fL [facility] Mean Corpuscular Hemoglobin 30.7 27.0 - 33.0 pg [facility] Mean Corpuscular HGB Conc 33.0 31.0 - 35.0 g/dl [facility] Red Cell Distribution Width 13.2 11.0 - 16.0 % [facility] Platelet Count 182 160 - 400 X10*3/uL [facility] Mean Platelet Volume 10.3 9.4 - 12.3 [facility] NRBC Pct Auto 0.0 0.0 - 0.2 /100WBC [facility] NRBC Abs Auto 0.000 0.0 - 0.012 X10*3/uL [facility] 09/04/2024 11:4 0 AM EST 09/04/2024 11:40 AM EST us Generic External Data Provider LAB BLOOD ORDERAB LES Final Result [facility] [address] [place] [address] [phone] * (ABNORMAL) Hemoglobin A1c (09/04/2024 11:40 AM EST) Hemoglobin A1c 6.4(H) <6.0 % [facility] Comment:Hemoglobin A1C Refer ence Range Adults: 4.8 - 6.0 % Non diabetic: < 6.0 % Goal: < 7.0 %Additional Action Suggested: > 8.0 %Note: Hemoglobin A1c results are invalid for patients with abnormal amounts of HbF. Blood transfusions may impact the HbA1c concentration in the patient sample. Estimated Average Glucose 137 mg/dL [facility] Comment:eAG = Estimated ave rage glucose which is %A1C expressed asaverage glucose, using the formula of the M6E-NnhvpikYqscxsq Glucose study (ADAG), Diabetes Care, Vol.31,#8,2007 09/04/2024 11:4 0 AM EST 09/04/2024 11:40 AM EST us Generic External Data Provider LAB BLOOD ORDERAB LES Final Result [facility] [address] [place], [place] [phone] * (ABNORMAL) Basic Metabolic Panel (09/04/2024 11:40 AM EST) Sodium 142 135 - 145 mmol/L [facility] Potassium 3.9 3.3 - 5.1 mmol/L [facility] Comment:Slight Hemolysis.Int erpret result with caution. Chloride 111(H) 96 - 108 mmol/L [facility] Carbon Dioxide 25 22 - 29 mmol/L [facility] Anion Gap 10(L) 12 - 20 [facility] Urea Nitrogen (BUN) 10 9 - 16 mg/dL [facility] Creatinine, Serum 0.79 0.5 - 1.4 mg/dL [facility] Creatinine Clr Calc Pharmacy 82.5 [facility] Comment:Provided height and weight: 154.94 cm,102.965 kg.eGFR (calculated from the MDRD study equation) and eCrCl(calculated from the Cockcroft-Gault equation) are based ondifferent parameters and may not yield comparable results.If eCrCl result is absurd, please check patient'sheight/weight. Estimated Glomerular Filt Rate >60 [facility] Comment:Chronic Kidney Disea se: Estimated GFR < 60 mL/min/1.04w0Rvobow Kidney Disease: Estimated GFR < 15 mL/min/1.73m2 Glucose 67 60 - 115 mg/dL [facility] Calcium 8.8 8.4 - 10.2 mg/dL [facility] 09/04/2024 11:4 0 AM EST 09/04/2024 11:40 AM EST Generic External Data Provider LAB BLOOD ORDERAB LES Final Result Performing Organization Address [facility] de Phone Number [facility] [address] [place] [phone] * (ABNORMAL) MRSA Nasal Screen (09/04/2024 10:15 AM EST) MRSA Nasal PCR NEGATIVE Negative [facility] SA Nasal PCR POSITIVE(A) Negative [facility] MRSA Interpretation SEE NOTE [facility] Comment:MRSA target DNA not detected; SA target DNA detected.A MRSA NEGATIVE, SA POSITIVE test result does not precludeMRSA nasal colonization. 09/04/2024 10:1 5 AM EST 09/04/2024 11:20 AM EST Generic External Data Provider LAB MICROBIOLOGY - GENERAL ORDERABLES Final Result Performing Organization Address [facility] Phone Number [facility] [address] [place] [phone] * BI Mammogram Screening Tomosynthesis Bilateral (02/09/2023 11:07 AM EDT) Anatomical Region Laterality Modality Breast Bilateral Mammography 02/09/2023 11:0 7 AM EDT Narrative 03/05/2023 6:25 AM EDT ? [facility] [place] ? [address] ?[place] [address] ? Mammography Report ? Signed ? Patient: Jose Oliver,Argelia ?MR#: [id number] ?? [id number] ? : 1965 ?Acct:[id number] ? Age/Sex: 57 / F ?ADM Date: 07/18/23 ? Loc: HO.MAMMO ? Attending Dr: Princess MAHANP ? Ordering Physician: Princess Min ?Results: ? Date of Service: 02/09/23 ?Follow Up: ? Procedure(s): MM tomosynthesis screening BI ?? Accession Number(s): [id number] ? cc: Princess Min FILLER SHREDDER ? EXAMINATION: ?? MM SCREENING DIGITAL BREAST [...] MD in OV> ? 03/05/23622 ? DD/ 1107 ? TD/TT: ? Power Generation Plant Operator: ? Procedure Note Donow[facility]ikater, Image - 03/05/2023 [facility] [address] [place] [address] Mammography Report Signed Patient: Nini Messina#: [id number] : 1965Acct:[id number] Age/Sex: 57 / FADM Date: 02/09/23 Loc: HO.MAMMO Attending Dr: Princess Min FILLER SHREDDER Ordering Physician: Princess Min FNPResults: Date of Service: 02/09/23Follow Up: Procedure(s): MM tomosynthesis screening BI Accession Number(s): [id number] cc: Princess Min FILLER SHREDDER EXAMINATION: MM SCREENING DIGITAL BREAST TOMOSYNTHESIS, BILATERAL [...] in OV> 03/05/23 0623 DD/ 1107 TD/TT: Power Generation Plant Operator: Princess VALENZUELA IMG BI PROCEDURES Final Result * Hepatitis C Antibody with Reflex to HCV, RNA, Quantitative, Real-Time PCR (10/16/2022 12:26 PM EDT) Hepatitis C Antibody NON-REACT MOOSE NON-REACT MOOSE [facility] Index 0.04 <1.00 [facility] Comment: HCV antibody was non-reactive. There is no laboratory evidence of HCV infection. In most cases, no further action is required. However, if recent HCV exposure is suspected, a test for HCV RNA (test code 11083) is suggested. For additional information please refer to http://education.Zite/faq/NUK74y2 (This link is being provided for informational/ educational purposes only.) Blood Venous blood specimen / Unknown 10/16/2022 12:26 PM EDT 10/16/2022 12:27 PM EDT Narrative [facility] - 10/19/2022 7:22 PM EDT FASTING:YES FASTING: YES Result [facility] Princess VALENZUELA LAB BLOOD ORDERABLES Final Res ult [facility] [address], [place] [address] [employer] [place] [email or web address] [address] [place] [address] * Hm Colonoscopy (05/24/2017) Colonoscopy Normal Normal Historical Provider HEALTH MAINTENANCE Final Result from Last 3 Months or Most Recently Relevant to Health Maintenance Insurance [facility] C3 [facility] MEDICAID STAND ADULT Care Teams Completion Manager Relationship Specialty Start Date End Date Princess Min FNP [address] [facility] [place] [address] PCP - General Family Medicine 02/10/24
--- OUTSIDE RECORDS SUMMARY | 2024-09-22 12:01 | XMS_ITS | Encounter Summary ---
Author Organization [employer] Address [address] [facility] 7t [place] [address] Care Team Providers Care Magnetic Tape Winder Name Role Phone Princess Min Primary Care Provider [phone] Princess Min Primary Care Provider [phone] Reason for Visit * Reason Comments Med Refill Encounter Details Date Type Department Care Team ([facility] st Contact Info) Description 01/02/2024 Refill [facility] [address] [place] [address] Princess Min FNP [address] [place], [place] [phone] Social History Tobacco Use Types Packs/Day Years [...] documented as of this encounter Care Teams Magnetic Tape Winder Relationship Specialty Start Date End Date Princess Min FNP [address] [place] [address] PCP - General Family Medicine 01/21/24 02/03/24 Princess Min FNP [address] [place] [address] PCP - General Family Medicine 02/10/24 documented as of this encounter
--- OUTSIDE RECORDS SUMMARY | 2024-09-22 12:01 | XMS_ITS | Encounter Summary ---
Author Organization [employer] Address [address] [place] [address] Care Team Providers Care Mechanical Project Manager Name Role Phone Princess Min Primary Care Provider [phone] Princess Min Primary Care Provider [phone] Reason for Visit * Reason Comments Med Refill Encounter Details Date Type Department Care Team ([facility] st Contact Info) Description 02/03/2024 Refill [facility] [address] [place] [address] Princess Min FNP [address] [place], [place] [phone] Hypothyroidism, unspecified type Social History Tobacco Use [...] documented as of this encounter Care Teams Mechanical Project Manager Relationship Specialty Start Date End Date Princess Min FNP [address] [place] [address] PCP - General Family Medicine 01/21/24 02/03/24 Princess Mni FNP [address] [place] [address] PCP - General Family Medicine 02/10/24 documented as of this encounter
--- OUTSIDE RECORDS SUMMARY | 2024-09-22 12:01 | XMS_ITS | Encounter Summary ---
Author Organization [employer] Address [address] [place] [address] Care Team Providers Care Bartenders Name Role Phone Princess Min Primary Care Provider [phone] Princess Min Primary Care Provider [phone] Reason for Visit * Reason Onset Date Comments PT1 02/03/2024 Encounter Details Date Type Department Care Team ([facility] st Contact Info) Description 02/03/2024 Telephone [facility] [address] [place] [address] Princess Min FNP [address] [place], [place] [phone] PT1 Social History Tobacco Use Types Packs/Day [...] Y/N: Yes Provider name or facility name: [facility] Address: [address] [place] [address] Escort needed: Y/N: No Do you have [...] documented as of this encounter Care Teams Bartenders Relationship Specialty Start Date End Date Princess Min FNP [address] [place] [address] PCP - General Family Medicine 01/21/24 02/03/24 Princess Min FNP [address] [place] [address] PCP - General Family Medicine 02/10/24 documented as of this encounter
--- OUTSIDE RECORDS SUMMARY | 2024-09-22 12:01 | XMS_ITS | Encounter Summary ---
Author Organization [employer] Address [address] [facility] 7t [place] [address] Care Team Providers Care Mainspring Winder And Oiler Name Role Phone Princess Min Primary Care Provider [phone] Princess Min Primary Care Provider Reason for Visit * Reason Onset Date Comments New Med Request 02/03/2024 Encounter Details Date Type Department Care Team (Late st Contact Info) Description 02/03/2024 Telephone [facility] [address] [place] [address] Princess Min FNP [address] [place], [place] [phone] New Med Request Social History Tobacco Use [...] documented as of this encounter Care Teams Mainspring Winder And Oiler Relationship Specialty Start Date End Date Princess Min FNP [address] [place] [address] PCP - General Family Medicine 01/21/24 02/03/24 Princess Min FNP [address] [place] [address] PCP - General Family Medicine 02/10/24 documented as of this encounter
--- OUTSIDE RECORDS SUMMARY | 2024-09-22 12:01 | XMS_ITS | Encounter Summary ---
Author Organization [employer] Address [address] [facility] 7t [place] [address] Care Team Providers Care Transplant Case Manager Name Role Phone Princess Min Primary Care Provider [phone] Princess Min Primary Care Provider [phone] Princess Min Primary Care Provider [phone] Reason for Visit * Reason Comments Med Refill Encounter Details Date Type Department Care Team ([facility] st Contact Info) Description 08/11/2022 Refill [facility] [address] [place], [place] [phone] Princess Min FNP [address] [place], [place] [phone] Cervical spondylosis Social History Tobacco Use Types [...] myelopathy documented in this encounter Care Teams Transplant Case Manager Relationship Specialty Start Date End Date Princess Min FNP [address] [place], [place] [phone] PCP - General Family Medicine 03/20/22 12/26/23 Princess Min FNP [address] [place] [address] PCP - General Family Medicine 01/21/24 02/03/24 Princess Min FNP [address] [place] [address] PCP - General Family Medicine 02/10/24 documented as of this encounter
--- OUTSIDE RECORDS SUMMARY | 2024-09-22 12:01 | XMS_ITS | Encounter Summary ---
Author Organization [employer] Address [address] [facility] 7t [place] [address] Care Team Providers Care Automatic Operator Name Role Phone Princess Min Primary Care Provider [phone] Reason for Visit * Reason Onset Date Comments Med Refill 02/11/2024 Encounter Details Date Type Department Care Team (Late st Contact Info) Description 02/11/2024 Telephone [facility] [address] [place] [address] Princess Min FNP [address] [place], [place] [phone] Med Refill Social History Tobacco Use Types [...] 1:02 PM EDT Medication was sent to [facility] on 11/29/23 with 3 refills. * Telephone Encounter - Drake Levy - 02/11/2024 11:57 AM EDT TC from pt requesting medication refill. Medications needing refill : Asmanex HFA 200 MCG/ACT aerosol To be sent to: [facility] - [place], [place] - [address] [facility] documented in this encounter Plan of Treatment Not on file documented as of this encounter Visit Diagnoses Not on filedocumented in this encounter Additional Health Concerns Assessment Noted Time PHQ-9 Depression Total Score: 10 023 10:39 AM EDT documented as of this encounter Care Teams Automatic Operator Relationship Specialty Start Date End Date Princess Min FNP [address] [place] [address] PCP - General Family Medicine 02/10/24 documented as of this encounter
--- OUTSIDE RECORDS SUMMARY | 2024-09-22 12:02 | XMS_ITS | Encounter Summary ---
Author Organization [employer] Address [address] [facility] 7t [place] [address] Care Team Providers Care Blister Packaging Machine Operator Name Role Phone Princess Min Primary Care Provider [phone] Princess Min Primary Care Provider [phone] Princess Min Primary Care Provider [phone] Reason for Visit * Reason Onset Date Comments Appointment Request 08/03/2022 Encounter Details Date Type Department Care Team (Late st Contact Info) Description 08/03/2022 Telephone [facility] [address] [place] [address] Princess Min FNP [address] [place], [place] [phone] Appointment Request Social History Tobacco Use Types [...] 12:26 PM EST Returned pt call via P/I#[id number], pt cancelled todays RETAIL PRODUCT ADVISOR RV appt scheduled 11am. Pt previously cancelled 07/16/22 RETAIL PRODUCT ADVISOR RV appt. Attempted to reschedule appt, offered 3 alternate times. 08/04/22, pt stated she will be in [place] for her sisters and back by 5pm. Offered her a time on 08/05/22, pt stated she doesn't know when she will be back. Offered her an appt today, 1 hour from now, beforeshe leaves for [place]. She said she will be long on her way to [place]. Reminded pt that she must attend these appointments to continue to receive her oxycodone script and that per her RETAIL PRODUCT ADVISOR agreement she must come in within 24 hours for a random urine. Pt stated she will call back when she is available to reschedule. Will FYI PCP. * Telephone Encounter - Jareth Cifuentes - 08/03/2022 11:54 AM EST Tc from pt requesting to r/s appt 08/03/22 ( RETAIL PRODUCT ADVISOR RV) pt states not able to come due to a lost in the family. Please contact pt at [phone] documented in this encounter Plan of Treatment Not on file documented as of this encounter Visit Diagnoses Not on filedocumented in this encounter Care Teams Blister Packaging Machine Operator Relationship Specialty Start Date End Date Princess Min FNP [address] [place] [address] PCP - General Family Medicine 03/20/22 12/26/23 Princess Min FNP [address] [place] [address] PCP - General Family Medicine 01/21/24 02/03/24 Princess Min FNP [address] [place] [address] PCP - General Family Medicine 02/10/24 documented as of this encounter
--- OUTSIDE RECORDS SUMMARY | 2024-09-22 12:02 | XMS_ITS | Encounter Summary ---
Author Organization [employer] Address [address] [facility] 7t [place] [address] Care Team Providers Care Hay Farmer Name Role Phone Princess Min Primary Care Provider [phone] Reason for Referral * Imaging (Routine) - Closed Specialty Diagnoses / Procedures Referred By Elaina melendez Referred To Contact Radiology Diagnoses Encounter for screening mammogram for malignant neoplasm of breast Procedures BI Mammogram Screening Tomosynthesis Bilateral Princess Min FNP [address] [place] [address] Phone: tel: fax: [address] Phone: tel: fax: Referral ID Status Reason Start Date Expiration Date Visits Re quested Visits Authorized [id number] Closed 09/18/2024 09/18/2025 1 1 Encounter Details Date Type Department Care Team (Late st Contact Info) Description 09/18/2024 10:15 AM EST Office Visit [facility] CH[facility] MED & PEDS [address] [place], [place] [phone] Princess Min FNP [address] [place], [place] [phone] Moderate persistent asthma without complication (Primary Dx); History of total knee arthroplasty, left; Encounter for screening mammogram for malignant neoplasm of breast; Healthcare maintenance; Routine health maintenance; Type 2 diabetes mellitus without complication, with long-term current use of insulin ([facility]) Social History Tobacco Use Types [...] this encounter Progress Notes * Princess Min, CLINICAL TRIAL HEAD - 09/18/2024 10:15 AM EST SUBJECTIVE Patient ID: Argelia Oliver is a 59 y.o. female w/ PMH hypertension, T2DM, hypothyroid, mod persistent asthma who presents to the office for follow up visit - chronic conditions. HPI: Last PCP visit: 05/26/24 Left knee pain: History of left TKA in May 2023 at [facility] with Dr. Laureano. Initial improvement following [...] feels safe in current living situation. 1 cutter plastics rolls that come to the house for assistance. [...] total knee arthroplasty, left Overview 06/09/23 at [facility] - Dr. Laureano Relevant Medications oxyCODONE [...] 11:31 AM EST) Creatinine, Urine 65.49 mg/dL [facility] Microalbumin Urine 8.0 mg/L [facility] Microalbum Creatinine Ratio Ur 12.2 <30 ug/mg cr [facility] Comment:Albumin/Creatinine R atio Reference Ranges: Normal: < 30 ug/mg creatinine Microalbuminuria: 30 - 300 ug/mg creatinineClinical Albuminuria: > 300 ug/mg creatinine Urine 09/18/2024 11:3 1 AM EST 09/18/2024 2:41 PM EST us Princess Min CLINICAL TRIAL HEAD LAB URINE ORDERABLES Final Res ult Performing Organization Address City/State/[facility] Co de Phone Number [facility] [address] [place] [phone] * (ABNORMAL) CBC auto differential (09/18/2024 11:22 AM EST) White Blood Count 8.1 4.8 - 10.8 X10*3/uL [facility] Red Blood Count 4.26 4.20 - 5.50 X10*6/uL [facility] Hemoglobin 12.9 12.0 - 16.0 g/dl [facility] Hematocrit 37.8 37.0 - 47.0 % [facility] Mean Corpuscular Volume 88.7 80.0 - 98.0 fL [facility] Mean Corpuscular Hemoglobin 30.3 27.0 - 33.0 pg [facility] Mean Corpuscular HGB Conc 34.1 31.0 - 35.0 g/dl [facility] Red Cell Distribution Width 12.9 11.0 - 16.0 % [facility] Platelet Count 247 160 - 400 X10*3/uL [facility] Mean Platelet Volume 10.7 9.4 - 12.3 fL [facility] Neutrophils Percent Auto 67.4 45 - 73 % [facility] Imm Gran Pct Auto 1.7(H) 0.0 - 0.4 % [facility] Lymphocytes Percent Auto 24.5 20 - 40 % [facility] Monocytes Percent Auto 5.3 2 - 11 % [facility] Eosinophils Percent Auto 0.6 0 - 4 % [facility] Basophils Percent Auto 0.5 0 - 2 % [facility] NRBC Pct Auto 0.0 0.0 - 0.2 /100WBC [facility] Neutrophils Absolute Auto 5.5 2.0 - 8.3 x10*3/uL [facility] Imm Gran Abs Auto 0.14(H) 0.00 - 0.03 X10*3/uL [facility] Lymphocytes Absolute Auto 2.0 1.2 - 4.9 X10*3/uL [facility] Monocytes Absolute Auto 0.4 0.1 - 1.2 X10*3/uL [facility] Eosinophils Absolute Auto 0.1 0.0 - 0.4 X10*3/uL [facility] Basophils Absolute Auto 0.0 0.0 - 0.2 X10*3/uL [facility] NRBC Abs Auto 0.000 0.0 - 0.012 X10*3/uL [facility] Blood Venous blood specimen / Unknown 09/18/2024 11:22 AM EST 09/18/2024 2:41 PM EST us Princess Min CLINICAL TRIAL HEAD LAB BLOOD ORDERABLES Final Res ult [facility] [address] [place], [place] [phone] * HIV-1/2 Antigen and Antibodies, Fourth Generation, with Reflexes (09/18/2024 11:22 AM EST) HIV AB/AG Nonreactive Nonreactive [facility] Comment:HIV-1 p24 Ag and/or HIV-1/HIV-2 Ab not detected.A test result that is nonreactive does not exclude thepossibility of exposure to or infection with HIV-1 and/orHIV-2. Nonreactive results in this assay for individualswith prior exposure to HIV-1 and/or HIV-2 may be due toantigen and antibody levels that are below the limit ofdetection of this assay.The [employer] HIV Ag/Ab Combo assay result andsupplemental assay results should be interpreted inconjunction with the patient's clinical presentation,history and other laboratory results. If the results areinconsistent with clinical evidence, additional testing issuggested to confirm the result. Blood Venous blood specimen / Unknown 09/18/2024 11:22 AM EST 09/18/2024 2:41 PM EST us Princess Min CLINICAL TRIAL HEAD LAB BLOOD ORDERABLES Final Res ult [facility] [address] [place] [phone] * (ABNORMAL) Comprehensive Metabolic Panel (09/18/2024 11:02 AM EST) Sodium 139 135 - 145 mmol/L [facility] Potassium 4.0 3.3 - 5.1 mmol/L [facility] Comment:Slight Hemolysis.Int erpret result with caution. Chloride 106 96 - 108 mmol/L [facility] Carbon Dioxide 24 22 - 29 mmol/L [facility] Anion Gap 13 12 - 20 [facility] Urea Nitrogen (BUN) 17(H) 9 - 16 mg/dL [facility] Creatinine, Serum 0.89 0.5 - 1.4 mg/dL [facility] Estimated Glomerular Filt Rate >60 [facility] Comment:Chronic Kidney Disea se: Estimated GFR < 60 mL/min/1.54h5Sgvcer Kidney Disease: Estimated GFR < 15 mL/min/1.73m2 Glucose 255(H) 60 - 115 mg/dL [facility] Calcium 9.0 8.4 - 10.2 mg/dL [facility] Bilirubin, Total 0.4 0.0 - 1.0 mg/dL [facility] Aspartate Amino Transferase 17 5 - 31 U/L [facility] Comment:Slight Hemolysis.Int erpret result with caution. Alanine Aminotransferase 27 0 - 31 U/L [facility] Total Protein 7.5 6.5 - 8.0 g/dL [facility] Albumin Level 3.9 3.5 - 5.0 g/dL [facility] Alkaline Phosphatase 104 39 - 117 U/L [facility] Blood Venous blood specimen / Unknown 09/18/2024 11:02 AM EST 09/18/2024 2:41 PM EST Princess Min [facility] LAB BLOOD ORDERABLES Final Res ult Performing Organization Address [facility] Co de Phone Number [facility] [address] [place] [phone] * TSH with Reflex to Free T4 (09/18/2024 11:02 AM EST) TSH reflex Free T4 0.97 0.32 - 4.0 uIU/mL [facility] Blood 09/18/2024 11:0 2 AM EST 09/18/2024 2:41 PM EST Princess Min CLINICAL TRIAL HEAD LAB BLOOD ORDERABLES Final Res ult Performing Organization Address [facility] Co de Phone Number [facility] [address] [place] [phone] * Lipid Panel, Standard (09/18/2024 11:02 AM EST) Triglycerides 136 <150 mg/dL [facility] Comment:Desirable Triglyceri de: less than 150 mg/dLBorderline High Triglyceride 150-199 mg/dLHigh Triglyceride: 200-499 mg/dLVery High Triglyceride: greater than or equal to 5OO mg/dL Cholesterol 156 <200 mg/dL [facility] Comment:Desirable Cholestero l: less than 200 mg/dLBorderline High Cholesterol: 200-239 mg/dLHigh Cholesterol: greater than 239 mg/dL LDL Cholesterol Calculated 75 <100 mg/dL [facility] Comment:Desirable LDL: less than 100 mg/dLNear Optimal/Above Optimal LDL: 110- 129 mg/dLBorderline High LDL: 130-159 mg/dLHigh LDL: 160-189 mg/dLVery High LDL: greater than or equal to 190 mg/dL HDL Cholesterol 54 >40 mg/dL [facility] Comment:Desirable HDL: great er than 40 mg/dL Note: This HDL assay may give artificially low results in patients with liver disease. Blood Venous blood specimen / Unknown 09/18/2024 11:02 AM EST 09/18/2024 2:41 PM EST us Princess VALENZUELA LAB BLOOD ORDERABLES Final Res ult [facility] [address] [place] [phone] documented in this encounter Visit Diagnoses Diagnosis Moderate persistent asthma without complication- Primary History of total knee arthroplasty, left Encounter for screening mammogram for malignant neoplasm of breast Healthcare maintenance Routine health maintenance Unspecified examination Type 2 diabetes mellitus without complication, with long-term current use of insulin ([facility]) documented in this encounter Additional Health Concerns Assessment Noted Time PHQ-9 Depression Total Score: 3 03/03/20 24 11:33 AM EDT documented as of this encounter Care Teams Hay Farmer Relationship Specialty Start Date End Date Princess Min FNP [address] [place] [address] PCP - General Family Medicine 02/10/24 documented as of this encounter
--- OUTSIDE RECORDS SUMMARY | 2024-09-22 12:02 | XMS_ITS | Encounter Summary ---
Author Organization [employer] Address [address] [place] [address] Care Team Providers Care Solar Energy System Installer Helper Name Role Phone Princess Min Primary Care Provider [phone] Princess Min Primary Care Provider [phone] Encounter Details Date Type Department Care Team (Late st Contact Info) Description 12/28/2023 Telephone [facility] MEDICINE [address] [place] [address] Princess Min FNP [address] [place], [place] [phone] Social History Tobacco Use Types Packs/Day Years [...] documented as of this encounter Care Teams Solar Energy System Installer Helper Relationship Specialty Start Date End Date Princess Min FNP [address] [place] [address] PCP - General Family Medicine 01/21/24 02/03/24 Princess Min FNP [address] [place] [address] PCP - General Family Medicine 02/10/24 documented as of this encounter
--- OUTSIDE RECORDS SUMMARY | 2024-09-22 12:02 | XMS_ITS | Encounter Summary ---
Author Organization [employer] Address [address] [facility] 7t [place] [address] Care Team Providers Care Alley Cleaner Name Role Phone Princess Min Primary Care Provider [phone] Reason for Visit * Reason Comments Med Refill Encounter Details Date Type Department Care Team ([facility] st Contact Info) Description 09/12/2024 Refill [facility] MEDICINE [address] [place] [address] Princess Min FNP [address] [place], [place] [phone] Major depressive disorder, recurrent, moderate (CMS/HCC); Anxiety [...] documented as of this encounter Care Teams Alley Cleaner Relationship Specialty Start Date End Date Princess Min FNP [address] [place] [address] PCP - General Family Medicine 02/10/24 documented as of this encounter
--- OUTSIDE RECORDS SUMMARY | 2024-09-22 12:02 | XMS_ITS | Encounter Summary ---
Author Organization [employer] Address [address] [facility] 7t [place] [address] Care Team Providers Care Clinical Unit Educator Name Role Phone Princess Min Primary Care Provider [phone] Reason for Visit * Reason Comments Med Refill Encounter Details Date Type Department Care Team ([facility] st Contact Info) Description 07/17/2024 Refill [facility] CHC MED & PEDS [address] [place], [place] [phone] Princess Min FNP [address] [place], [place] [phone] Acute otitis externa of left ear, unspecified [...] documented as of this encounter Care Teams Clinical Unit Educator Relationship Specialty Start Date End Date Princess Min FNP [address] [place] [address] PCP - General Family Medicine 02/10/24 documented as of this encounter
--- OUTSIDE RECORDS SUMMARY | 2024-09-22 12:02 | XMS_ITS | Encounter Summary ---
Author Organization [employer] Address [address] [facility] 7t [place] [address] Care Team Providers Care Transitional Kindergarten Teacher Name Role Phone Princess Min Primary Care Provider [phone] Princess Min Primary Care Provider [phone] Reason for Visit * Reason Comments Med Change Request Encounter Details Date Type Department Care Team ([facility] Contact Info) Description 12/28/2023 Refill [facility] CHC MED & PEDS [address] [place], [place] [phone] Princess Min FNP [address] [place], [place] [phone] Social History Tobacco Use Types Packs/Day Years [...] documented as of this encounter Care Teams Transitional Kindergarten Teacher Relationship Specialty Start Date End Date Princess Min FNP [address] [place] [address] PCP - General Family Medicine 01/21/24 02/03/24 Princess Min FNP [address] [place] [address] PCP - General Family Medicine 02/10/24 documented as of this encounter
--- OUTSIDE RECORDS SUMMARY | 2024-09-22 12:02 | XMS_ITS | Encounter Summary ---
Author Organization [employer] Address [address] 7[address] [place] [address] Care Team Providers Care Hand Sole Sewer Name Role Phone Princess Min DIRECTOR STUDENT UNION Primary Care Provider [phone] Encounter Details Date Type Department Care Team [...] documented as of this encounter Care Teams Hand Sole Sewer Relationship Specialty Start Date End Date Princess Min FNP [address] [place] [phone] PCP - General Family Medicine 02/10/24 documented as of this encounter
--- OUTSIDE RECORDS SUMMARY | 2024-09-22 12:02 | XMS_ITS | Encounter Summary ---
Author Organization [employer] Address [address] [facility] 7t [place] [address] Care Team Providers Care Internet Application Developer Name Role Phone Princess Min Primary Care Provider [phone] Princess Min Primary Care Provider [phone] Princess Min Primary Care Provider [phone] Reason for Visit * Reason Comments Med Refill Encounter Details Date Type Department Care Team ([facility] st Contact Info) Description 06/14/2023 Refill [facility] MEDICINE [address] [place] [address] Princess Min FNP [address] [place], [place] [phone] Social History Tobacco Use Types Packs/Day Years [...] documented as of this encounter Care Teams Internet Application Developer Relationship Specialty Start Date End Date Princess Min FNP [address] [place] [address] PCP - General Family Medicine 03/20/22 12/26/23 Princess Min FNP [address] [place] [address] PCP - General Family Medicine 01/21/24 02/03/24 Princess Min FNP [address] [place] [address] PCP - General Family Medicine 02/10/24 documented as of this encounter
--- OUTSIDE RECORDS SUMMARY | 2024-09-22 12:02 | XMS_ITS | Encounter Summary ---
Author Organization [employer] Address [address] [facility] 7t [place] [address] Care Team Providers Care Business Administrator Name Role Phone Princess Min GARMENT FORM ASSEMBLER Primary Care Provider [phone] Reason for Visit * Reason Onset Date Comments Chart Prep 09/14/2024 Encounter Details Date Type Department Care Team (Late st Contact Info) Description 09/14/2024 Telephone [facility] CHC MED & PEDS [address] [place], [place] [phone] Abdifatah Martinez [place] Chart Prep Social History [...] documented as of this encounter Care Teams Business Administrator Relationship Specialty Start Date End Date Princess Min FNP [address] [place] [address] PCP - General Family Medicine 02/10/24 documented as of this encounter
--- OUTSIDE RECORDS SUMMARY | 2024-09-22 12:02 | XMS_ITS | Encounter Summary ---
Author Organization [employer] Address [address] [facility] 7t [place] [address] Care Team Providers Care Retanner Name Role Phone Princess Min UPHOLSTERER ASSEMBLY LINE Primary Care Provider [phone] Encounter Details Date Type Department Care Team [...] EST) Sodium 142 135 - 145 mmol/L [facility] Potassium 3.9 3.3 - 5.1 mmol/L [facility] Comment:Slight Hemolysis.Int erpret result with caution. Chloride 111(H) 96 - 108 mmol/L [facility] Carbon Dioxide 25 22 - 29 mmol/L [facility] Anion Gap 10(L) 12 - 20 [facility] Urea Nitrogen (BUN) 10 9 - 16 mg/dL [facility] Creatinine, Serum 0.79 0.5 - 1.4 mg/dL [facility] Creatinine Clr Calc Pharmacy 82.5 [facility] Comment:Provided height and weight: 154.94 cm,102.965 kg.eGFR (calculated from the MDRD study equation) and eCrCl(calculated from the Cockcroft-Gault equation) are based ondifferent parameters and may not yield comparable results.If eCrCl result is absurd, please check patient'sheight/weight. Estimated Glomerular Filt Rate >60 [facility] Comment:Chronic Kidney Disea se: Estimated GFR < 60 mL/min/1.87q7Jjjqsa Kidney Disease: Estimated GFR < 15 mL/min/1.73m2 Glucose 67 60 - 115 mg/dL [facility] Calcium 8.8 8.4 - 10.2 mg/dL [facility] 09/04/2024 11:4 0 AM EST 09/04/2024 11:40 AM EST us Generic External Data Provider LAB BLOOD ORDERAB LES Final Result Performing Organization Address [facility] Co de Phone Number [facility] [address] [place] [phone] * (ABNORMAL) Hemoglobin A1c (09/04/2024 11:40 AM EST) Hemoglobin A1c 6.4(H) <6.0 % [facility] Comment:Hemoglobin A1C Refer ence Range Adults: 4.8 - 6.0 % Non diabetic: < 6.0 % Goal: < 7.0 %Additional Action Suggested: > 8.0 %Note: Hemoglobin A1c results are invalid for patients with abnormal amounts of HbF. Blood transfusions may impact the HbA1c concentration in the patient sample. Estimated Average Glucose 137 mg/dL [facility] Comment:eAG = Estimated ave rage glucose which is %A1C expressed asaverage glucose, using the formula of the V7U-HmgzdbkQtugskr Glucose study (ADAG), Diabetes Care, Vol.31,#8,2007 09/04/2024 11:4 0 AM EST 09/04/2024 11:40 AM EST us Generic External Data Provider LAB BLOOD ORDERAB LES Final Result Performing Organization Address [facility] Co de Phone Number [facility] [address] [place] [phone] * CBC (09/04/2024 11:40 AM EST) White Blood Count 5.8 4.8 - 10.8 X10*3/uL [facility] Red Blood Count 4.27 4.20 - 5.50 X10*6/uL [facility] Hemoglobin 13.1 12.0 - 16.0 g/dl [facility] Hematocrit 39.7 37.0 - 47.0 % [facility] Mean Corpuscular Volume 93.0 80.0 - 98.0 fL [facility] Mean Corpuscular Hemoglobin 30.7 27.0 - 33.0 pg [facility] Mean Corpuscular HGB Conc 33.0 31.0 - 35.0 g/dl [facility] Red Cell Distribution Width 13.2 11.0 - 16.0 % [facility] Platelet Count 182 160 - 400 X10*3/uL [facility] Mean Platelet Volume 10.3 9.4 - 12.3 fL [facility] NRBC Pct Auto 0.0 0.0 - 0.2 /100WBC [facility] NRBC Abs Auto 0.000 0.0 - 0.012 X10*3/uL [facility] 09/04/2024 11:4 0 AM EST 09/04/2024 11:40 AM EST us Generic External Data Provider LAB BLOOD ORDERAB LES Final Result [facility] [address] [place] [phone] * (ABNORMAL) MRSA Nasal Screen (09/04/2024 10:15 AM EST) Pathologist [facility] MRSA Nasal PCR NEGATIVE Negative [facility] SA Nasal PCR POSITIVE(A) Negative [facility] MRSA Interpretation SEE NOTE [facility] Comment:MRSA target DNA not detected; SA target DNA detected.A MRSA NEGATIVE, SA POSITIVE test result does not precludeMRSA nasal colonization. 09/04/2024 10:1 5 AM EST 09/04/2024 11:20 AM EST us Generic External Data Provider LAB MICROBIOLOGY - GENERAL ORDERABLES Final Result [facility] [address] [place] [phone] documented in this encounter Visit Diagnoses Not on filedocumented in this encounter Additional Health Concerns Assessment Noted Time PHQ-9 Depression Total Score: 3 03/03/20 11:33 AM EDT documented as of this encounter Care Teams Retanner Relationship Specialty Start Date End Date Princess Min FNP [address] [place] [address] PCP - General Family Medicine 02/10/24 documented as of this encounter
--- OUTSIDE RECORDS SUMMARY | 2024-09-22 12:02 | XMS_ITS | Encounter Summary ---
Author Organization [employer] Address [address] [facility] 7t [place] [address] Care Team Providers Care Speech And Drama Teacher Name Role Phone Princess Min Primary Care Provider [phone] Princess Min Primary Care Provider [phone] Princess Min Primary Care Provider [phone] Reason for Visit * Reason Onset Date Comments PT1 04/27/2023 Encounter Details Date Type Department Care Team (Late st Contact Info) Description 04/27/2023 Telephone [facility] MEDICINE [address] [place] [address] Princess Min FNP [address] [place], [place] [phone] PT1 Social History Tobacco Use Types Packs/Day [...] Certification of Serious Illness is ready for order picker at medical records. * Telephone Encounter - Barbie Montanez - 04/28/2023 3:58 PM EDT PT-1 submitted for patient. They will receive a letter of approval or denial in the mail. * Telephone Encounter - Velia Berry - 04/27/2023 4:43 PM EDT Tc form pt requesting PT1 Date: 05/06/23 Time: 10 AM address: [address] [place] [phone] specialty: Psychologist # visits: n/a auditing specialist: no Wheelchair: no documented in this encounter Plan of Treatment Not on file documented as of this encounter Visit Diagnoses Not on filedocumented in this encounter Additional Health Concerns Assessment Noted Time PHQ-9 Depression Total Score: 10 023 10:39 AM EDT documented as of this encounter Care Teams Speech And Drama Teacher Relationship Specialty Start Date End Date Princess Min FNP [address] [place] [address] PCP - General Family Medicine 03/20/22 12/26/23 Princess Min FNP [address] [place] [address] PCP - General Family Medicine 01/21/24 02/03/24 Princess Min FNP [address] [place] [address] PCP - General Family Medicine 02/10/24 documented as of this encounter
--- OUTSIDE RECORDS SUMMARY | 2024-09-22 12:02 | XMS_ITS | Encounter Summary ---
Author Organization [employer] Address [address] [facility] 7t [place] [address] Care Team Providers Care Ground Hand Name Role Phone Princess Min Primary Care Provider [phone] Princess Min Primary Care Provider [phone] Princess Min Primary Care Provider [phone] Reason for Visit * Reason Onset Date Comments PCP Switch 06/22/2023 Encounter Details Date Type Department Care Team (Late st Contact Info) Description 06/22/2023 Telephone [facility] MEDICINE [address] [place] [address] Princess Min FNP [address] [place], [place] [phone] PCP Switch Social History Tobacco Use Types [...] be seen by a doctor not a SR. MANAGER MARKETING fiction and nonfiction prose writer did express that it will be [...] documented as of this encounter Care Teams Ground Hand Relationship Specialty Start Date End Date Princess Min FNP [address] [place] [address] PCP - General Family Medicine 03/20/22 12/26/23 Princess Min FNP [address] [place] [address] PCP - General Family Medicine 01/21/24 02/03/24 Princess Min FNP [address] [place] [address] PCP - General Family Medicine 02/10/24 documented as of this encounter
--- OUTSIDE RECORDS SUMMARY | 2024-09-22 12:02 | XMS_ITS ---
Author Organization [facility] Address [address] [place] [address] Care Team Providers Care Lease Examiner Name Role Phone OMERO SOTO MD Primary Care Provider Naun Silva Jr, [facility] [phone] REASON FOR VISIT screening colonoscopy Encounters Encounter Location Date Provider Diagnosis [facility] [address] [place] [phone] 06/26/2024 Aidan Silva Jr PLAN OF TREATMENT No Information
--- OUTSIDE RECORDS SUMMARY | 2024-09-22 12:02 | XMS_ITS | Encounter Summary ---
Author Organization [employer] Address [address] [facility] 7t [place] [address] Care Team Providers Care Material Liaison Name Role Phone Princess Min Primary Care Provider [phone] Reason for Visit * Reason Onset Date Comments FYI 07/13/2024 Encounter Details Date Type Department Care Team ([facility] st Contact Info) Description 07/13/2024 Telephone [facility] MEDICINE [address] [place] [address] Princess Min FNP [address] [place], [place] [phone] FYI Social History Tobacco Use Types Packs/Day [...] documented as of this encounter Care Teams Material Liaison Relationship Specialty Start Date End Date Princess Min FNP [address] [place] [address] PCP - General Family Medicine 02/10/24 documented as of this encounter
--- OUTSIDE RECORDS SUMMARY | 2024-09-22 12:02 | XMS_ITS | Encounter Summary ---
Author Organization [email or web address] Address 75 [facility] 7t [place] [address] Care Team Providers Care Telemetry Tech Name Role Phone Princess Min Primary Care Provider [phone] Reason for Visit * Reason Onset Date Comments Durable Medical Equipment 09/12/2024 Encounter Details Date Type Department Care Team (Late st Contact Info) Description 09/12/2024 Telephone [facility] MEDICINE [address] [place] [address] Princess Min FNP [address] [place], [place] [phone] Durable Medical Equipment Social History Tobacco Use [...] documented as of this encounter Care Teams Telemetry Tech Relationship Specialty Start Date End Date rPincess Min FNP [address] [place] [address] PCP - General Family Medicine 02/10/24 documented as of this encounter
--- OUTSIDE RECORDS SUMMARY | 2024-09-22 12:02 | XMS_ITS | Encounter Summary ---
Author Organization [employer] Address 75 [facility] 7t [place] [address] Care Team Providers Care Workers' Compensation Magistrate Name Role Phone Princess Min Primary Care Provider [phone] Reason for Visit * Reason Comments Med Refill Encounter Details Date Type Department Care Team ([facility] st Contact Info) Description 09/07/2024 Refill [facility] [address] [place] [address] Princess Min FNP [address] [place], [place] [phone] Social History Tobacco Use Types Packs/Day Years [...] documented as of this encounter Care Teams Workers' Compensation Magistrate Relationship Specialty Start Date End Date Princess Min FNP [address] [place] [address] PCP - General Family Medicine 02/10/24 documented as of this encounter
--- OUTSIDE RECORDS SUMMARY | 2024-09-22 12:02 | XMS_ITS | Encounter Summary ---
Author Organization [employer] Address [address] [facility] [address] 7[address] [place] [address] Care Team Providers Care Underground Electrician Name Role Phone Princess Min SWITCHBOARD MECHANIC Primary Care Provider [phone] Encounter Details Date Type Department Care Team [...] documented as of this encounter Care Teams Underground Electrician Relationship Specialty Start Date End Date Princess Min FNP [address] [place] [address] PCP - General Family Medicine 02/10/24 documented as of this encounter
--- OUTSIDE RECORDS SUMMARY | 2024-09-22 12:02 | XMS_ITS | Encounter Summary ---
Author Organization [employer] Address 75 [facility] 7t [place] [address] Care Team Providers Care Storage Facility Housekeeper Name Role Phone Princess Min ZONING ADMINISTRATOR Primary Care Provider [phone] Reason for Visit * Reason Comments Cough Encounter Details Date Type Department Care Team ([facility] st Contact Info) Description 09/15/2024 1:20 PM EST Office Visit [facility] [address] [place], [place] [phone] Name, MD Alvaro [address] [place] [address] Acute cough (Primary Dx); Wheezing; Nasal congestion; [...] PM EST) Influenza B Negative Negative, Indeterminate [facility] Swab 09/15/2024 1:18 PM EST us Alvaro Rocha MD POINT OF CARE TEST ENTER/EDIT OR DERABLES Final Result Performing Organization Address [facility]/ZIP Co de Phone Number [facility] [address] [place] [phone] * Influenza A (ID NOW Rapid Molecular) (09/15/2024 1:18 PM EST) Pathologist [facility] Influenza A Negative Negative, Indeterminate [facility] Swab 09/15/2024 1:18 PM EST us Alvaro Rocha MD POINT OF CARE TEST ENTER/EDIT OR DERABLES Final Result Performing Organization Address [facility] Co de Phone Number [facility] [address] [place] [phone] * POCT Rapid COVID Ag (09/15/2024 1:18 PM EST) Rapid COVID Ag Negative [facility] Swab 09/15/2024 1:18 PM EST us Alvaro Rocha MD POINT OF CARE TEST ENTER/EDIT OR DERABLES Final Result Performing Organization Address [facility] Co de Phone Number [facility] [address] [place] [phone] documented in this encounter Visit Diagnoses Diagnosis Acute cough- Primary Wheezing Nasal congestion Other diseases of nasal cavity and sinuses Moderate persistent asthma without complication documented in this encounter Additional Health Concerns Assessment Noted Time PHQ-9 Depression Total Score: 3 03/03/20 24 11:33 AM EDT documented as of this encounter Care Teams Storage Facility Housekeeper Relationship Specialty Start Date End Date Princess Min FNP [address] [place] [address] PCP - General Family Medicine 02/10/24 documented as of this encounter
--- OUTSIDE RECORDS SUMMARY | 2024-09-22 12:02 | XMS_ITS | Encounter Summary ---
Author Organization [employer] Address [address] [facility] 7t [place] [address] Care Team Providers Care Radiology Therapist Name Role Phone Princess Min Primary Care Provider [phone] Reason for Visit * Reason Onset Date Comments Med Refill 09/14/2024 Encounter Details Date Type Department Care Team (Late st Contact Info) Description 09/14/2024 Refill [facility] MEDICINE [address] [place] [address] Princess Min FNP [address] [place], [place] [phone] Other migraine without status migrainosus, not intractable [...] 12 % lotion To be sent to: [facility] - [place], [place] - [address] [place] [address] documented in this encounter Plan of Treatment Not on file documented as of this encounter Visit Diagnoses Diagnosis Other migraine without status migrainosus, not intractable documented in this encounter Additional Health Concerns Assessment Noted Time PHQ-9 Depression Total Score: 3 03/03/20 24 11:33 AM EDT documented as of this encounter Care Teams Radiology Therapist Relationship Specialty Start Date End Date Princess Min FNP [address] [place] [address] PCP - General Family Medicine 02/10/24 documented as of this encounter
--- OUTSIDE RECORDS SUMMARY | 2024-09-22 12:02 | XMS_ITS | Encounter Summary ---
Author Organization [employer] Address [address] [facility] 7t [place] [address] Care Team Providers Care Hydraulic Chair Assembler Name Role Phone Princess Min Primary Care Provider [phone] Reason for Visit * Reason Comments Med Refill Encounter Details Date Type Department Care Team ([facility] st Contact Info) Description 09/11/2024 Refill [facility] [address] [place] [address] Princess Min FNP [address] [place], [place] [phone] Other migraine without status migrainosus, not intractable [...] documented as of this encounter Care Teams Hydraulic Chair Assembler Relationship Specialty Start Date End Date Princess Min FNP [address] [place] [address] PCP - General Family Medicine 02/10/24 documented as of this encounter
--- OUTSIDE RECORDS SUMMARY | 2024-09-22 12:02 | XMS_ITS | Encounter Summary ---
Author Organization [employer] Address [address] [facility] 7t [place] [address] Care Team Providers Care Electric Fan Assembler Name Role Phone Princess Min [facility] Primary Care Provider [phone] Reason for Visit * Reason Comments Pre-op Exam Encounter Details Date Type Department Care Team ([facility] st Contact Info) Description 09/20/2024 9:00 AM EST Office Visit [facility] [address] [place], [place] [phone] [facility] [address] [place] [address] Chronic pain of left knee (Primary Dx); Preop examination; Type 2 diabetes mellitus without complication, with long-term current use of insulin ([facility]); Essential hypertension; Mild persistent asthma without complication Social History Tobacco [...] 9:00 AM EST documented in this encounter Progress Notes * [facility], PROFESSOR OF ART HISTORY - 09/20/2024 9:00 AM EST Argelia Oliver is a 59 y.o. year old female patient with type 2 diabetes, hypertension, HFpEF, hypothyroid, asthma who presents for preop evaluation prior to the following procedure: Date of Surgery: 09/27/24 Surgical procedure being done: Left knee total revision Type of anesthesia: general anesthesia Lab needed: Yes including A1c EKG: Yes Surgeon's name: Dr Laureano Facility name: [facility] Surgeon's office number: [phone] Surgeon's office fax number: [phone] Contact name (person you spoke with): Stephanie Cardiac Risk History of ischemic heart disease: NO History of heart failure: YES History of cerebrovascular disease: NO Diabetes mellitus requiring treatment with insulin: YES Preoperative serum creatinine >2.0 mg/dL : NO Activity tolerance >4 METS: YES climb up a flight of stairs, walk up a hill, walk at ground level at 4 miles per hour, or perform heavy work around the house. Bleeding Risk: Chronic anticoagulation: NO Daily aspirin: YES Blood clotting disorder: NO Pulmonary History: POSITIVE-ASTHMA BMI > 40: YES Smoking History: former tobacco use--quit 08/2024 ETOH: None Substance Use: None Personal or family history of anesthesia reaction: NO Chronic Medical Conditions: F8KB--ZL elevated in office; currently on prednisone--typically well controlled. HF- Hx of diastolic HF. HTN-Well controlled HYPOTHYROID-Well controlled ASTHMA Review of Systems Constitutional: Negative for fatigue, fever and unexpected weight change. Eyes: Negative for visual disturbance. Respiratory: Negative for apnea, chest tightness and shortness of breath. Cardiovascular: Negative for chest pain, palpitations and leg swelling. Neurological: Negative for dizziness, light-headedness and headaches. OBJECTIVE Vitals: 09/20/24 0900 09/20/24 0933 BP: (!) 153/73 120/80 BP Location: Left arm Patient Position: Sitting BP Cuff Size: Large adult Pulse: 58 Resp: 18 Temp: 98 ??F (36.7 ??C) TempSrc: Oral SpO2: 98% Weight: 228 lb (103 kg) Height: 5' 1 (1.549 m) Physical Exam Constitutional: General: She is not in acute distress. Appearance: Normal appearance. HENT: Head: Normocephalic and atraumatic. Right Ear: External ear normal. Left Ear: External ear normal. Nose: Nose normal. Eyes: Conjunctiva/sclera: Conjunctivae normal. Cardiovascular: Rate and Rhythm: Normal rate and regular rhythm. Heart sounds: Normal heart sounds. Pulmonary: Effort: Pulmonary effort is normal. Breath sounds: Normal breath sounds. Skin: General: Skin is warm and dry. Neurological: General: No focal deficit present. Mental Status: She is alert and oriented to person, place, and time. Psychiatric: Mood and Affect: Mood normal. Behavior: Behavior normal. PREOPERATIVE ASSESSMENT AND PLAN: - Provider considers procedure to be medium risk -Reviewed cardiac risk factors based on RCRI. Patient has 2 risk factors corresponding to 2.4%risk of a major cardiac event during surgery. - Pt was advised to hold aspirin beginning 5 days before surgery and avoid NSAIDs starting 3 days before surgery - Patient may proceed with surgery and anesthesia without further risk stratification at this time - Pt will contact health center with questions or concerns -Follow-up as scheduled T2DM Lab Results Component Value Date HGBA1C 7.9 (A) 09/20/2024 - BS elevated d/t prednisone use (completed 5 day course today). Otherwise well-controlled Patient advised at the following glucose management unless otherwise instructed by surgical team - Hold trulicity x 2 weeks - Hold invokana beginning 3 days prior to surgery - Reduce evening insulin dose to 15 units the day before surgery - Hold metformin day of surgery Cardiology - Blood pressure well-controlled. Okay to continue medications as prescribed - Had cardiac clearance 05/[address] Calle. No change in symptoms since this time. No evidence of fluid overload on physical exam today - EKG normal sinus rhythm Respiratory -Recent asthma exacerbation status post prednisone x 5 days - Symptoms have returned to baseline - Continue inhalers as prescribed Office Visit on 09/20/2024 Component Date Value Hemoglobin A1C 09/20/2024 7.9 (A) QC Media Lot # 09/20/2024 Lot# Expiration Date 09/20/2024 Glucose Blood, POC 09/20/2024 256 (A) QC Media Lot # 09/20/2024 Lot# Expiration Date 09/20/2024 Prothrombin Time 09/20/2024 10.3 (L) INTERNATIONAL NORM RATIO 09/20/2024 0.9 Office Visit on 09/18/2024 Component Date Value RPR (Monitor) w/Refl Tit* 09/18/2024 NON-REACTIVE Rapid Plasma Reagin Ab T* 09/18/2024 TNP HIV AB/AG 09/18/2024 Nonreactive Creatinine, Urine 09/18/2024 65.49 Microalbumin Urine 09/18/2024 8.0 Microalbum Creatinine Ra* 09/18/2024 12.2 Triglycerides 09/18/2024 136 Cholesterol 09/18/2024 156 LDL Cholesterol Calculat* 09/18/2024 75 HDL Cholesterol 09/18/2024 54 TSH reflex Free T4 09/18/2024 0.97 Sodium 09/18/2024 139 Potassium 09/18/2024 4.0 Chloride 09/18/2024 106 Carbon Dioxide 09/18/2024 24 Anion Gap 09/18/2024 13 Urea Nitrogen (BUN) 09/18/2024 17 (H) Creatinine, Serum 09/18/2024 0.89 Estimated Glomerular Jacob* 09/18/2024 >60 Glucose 09/18/2024 255 (H) Calcium 09/18/2024 9.0 Bilirubin, Total 09/18/2024 0.4 Aspartate Amino Transfer* 09/18/2024 17 Alanine Aminotransferase 09/18/2024 27 Total Protein 09/18/2024 7.5 Albumin Level 09/18/2024 3.9 Alkaline Phosphatase 09/18/2024 104 White Blood Count 09/18/2024 8.1 Red Blood Count 09/18/2024 4.26 Hemoglobin 09/18/2024 12.9 Hematocrit 09/18/2024 37.8 Mean Corpuscular Volume 09/18/2024 88.7 Mean Corpuscular Hemoglo* 09/18/2024 30.3 Mean Corpuscular HGB Conc 09/18/2024 34.1 Red Cell Distribution Wi* 09/18/2024 12.9 Platelet Count 09/18/2024 247 Mean Platelet Volume 09/18/2024 10.7 Neutrophils Percent Auto 09/18/2024 67.4 Imm Gran Pct Auto 09/18/2024 1.7 (H) Lymphocytes Percent Auto 09/18/2024 24.5 Monocytes Percent Auto 09/18/2024 5.3 Eosinophils Percent Auto 09/18/2024 0.6 Basophils Percent Auto 09/18/2024 0.5 NRBC Pct Auto 09/18/2024 0.0 Neutrophils Absolute Auto 09/18/2024 5.5 Imm Gran Abs Auto 09/18/2024 0.14 (H) Lymphocytes Absolute Au* 09/18/2024 2.0 Monocytes Absolute Auto 09/18/2024 0.4 Eosinophils Absolute Auto 09/18/2024 0.1 Basophils Absolute Auto 09/18/2024 0.0 NRBC Abs Auto 09/18/2024 0.000 Office Visit on 09/15/2024 Component Date Value Rapid COVID Ag 09/15/2024 Negative Influenza A 09/15/2024 Negative Influenza B 09/15/2024 Negative Orders Only on 09/04/2024 Component Date Value White Blood Count 09/04/2024 5.8 Red Blood Count 09/04/2024 4.27 Hemoglobin 09/04/2024 13.1 Hematocrit 09/04/2024 39.7 Mean Corpuscular Volume 09/04/2024 93.0 Mean Corpuscular Hemoglo* 09/04/2024 30.7 Mean Corpuscular HGB Conc 09/04/2024 33.0 Red Cell Distribution Wi* 09/04/2024 13.2 Platelet Count 09/04/2024 182 Mean Platelet Volume 09/04/2024 10.3 NRBC Pct Auto 09/04/2024 0.0 NRBC Abs Auto 09/04/2024 0.000 Hemoglobin A1c 09/04/2024 6.4 (H) Estimated Average Glucose 09/04/2024 137 MRSA Nasal PCR 09/04/2024 NEGATIVE SA Nasal PCR 09/04/2024 POSITIVE (A) MRSA Interpretation 09/04/2024 SEE NOTE Sodium 09/04/2024 142 Potassium 09/04/2024 3.9 Chloride 09/04/2024 111 (H) Carbon Dioxide 09/04/2024 25 Anion Gap 09/04/2024 10 (L) Urea Nitrogen (BUN) 09/04/2024 10 Creatinine, Serum 09/04/2024 0.79 Creatinine Clr Calc Phar* 09/04/2024 82.5 Estimated Glomerular Jacob* 09/04/2024 >60 Glucose 09/04/2024 67 Calcium 09/04/2024 8.8 Diagnosis Plan 1. Chronic pain of left knee 2. Preop examination Prothrombin Time-INR Prothrombin Time-INR 3. Type 2 diabetes mellitus without complication, with long-term current use of insulin ([facility]) POCT A1C POCT glucose manually resulted 4. Essential hypertension 5. Mild persistent asthma without complication documented in this encounter Plan of Treatment Not on file documented as of this encounter Procedures Procedure Name Priority Date/Time Associated Diagnosis Comments ECG 12-LEAD Routine 09/20/2024 4:21 PM EST Preop examination PROTHROMBIN TIME-INR Routine 09/20/2024 9:54 AM EST Preop examination POCT GLYCATED HEMOGLOBIN, TOTAL Routine 09/20/2024 9:03 AM EST Type 2 diabetes mellitus without complication, with long-term current use of insulin ([facility]) POCT GLUCOSE Routine 09/20/2024 9:02 AM EST Type 2 diabetes mellitus without complication, with long-term current use of insulin ([facility]) documented in this encounter Results * ECG 12 lead (09/20/2024 4:21 PM EST) Carri Cope FNP - 09/20/2024 4:21 PM EST NSR Carri VALENZUELA ECG ORDERABLES Final Result * (ABNORMAL) Prothrombin Time-INR (09/20/2024 9:54 AM EST) Prothrombin Time 10.3(L) 10.9 - 12.4 SEC [facility] INTERNATIONAL NORM RATIO 0.9 0.9 - 1.1 [facility] Comment:INTERNATIONAL NORMAL IZED RATIO (INR) REFERENCE [...] 9:54 AM EST 09/20/2024 2:18 PM EST [facility] LAB BLOOD ORDERABLES Final Re sult [facility] [address] [place] [address] [phone] * (ABNORMAL) POCT A1C (09/20/2024 9:03 AM EST) Hemoglobin A1C 7.9(A) 4.0 - 6.0 % QC Media Lot # Comment:[id number] Lot# Expiration Date Comment:05/12/2026 Blood 09/20/2024 9:03 AM EST Result [facility] POINT OF CARE TEST ENTER/EDIT ORDERABLES Final Result * (ABNORMAL) POCT glucose manually resulted (09/20/2024 9:02 AM EST) Glucose Blood, POC 256(A) 60 - 200 mg/dL QC Media Lot # Comment:[id number] Lot# Expiration Date Comment:01/25/2025 Blood Capillary blood specimen / Unknown 09/20/2024 9:02 AM EST Result [facility] POINT OF CARE TEST ENTER/EDIT ORDERABLES Final Result documented in this encounter Visit Diagnoses Diagnosis Chronic pain of left knee- Primary Preop examination Unspecified pre-operative examination Type 2 diabetes mellitus without complication, with long-term current use of insulin ([facility]) Essential hypertension Unspecified essential hypertension Mild persistent asthma without complication documented in this encounter Additional Health Concerns Assessment Noted Time PHQ-9 Depression Total Score: 3 03/03/20 24 11:33 AM EDT documented as of this encounter Care Teams Electric Fan Assembler Relationship Specialty Start Date End Date Princess Min FNP [address] [place] [phone] PCP - General Family Medicine 02/10/24 documented as of this encounter
--- OUTSIDE RECORDS SUMMARY | 2024-09-22 12:02 | XMS_ITS | Encounter Summary ---
Author Organization [employer] Address [address] [facility] 7t [place] [address] Care Team Providers Care Door Repairer Bus Name Role Phone Princess Min Primary Care Provider [phone] Reason for Visit * Reason Comments Med Refill Encounter Details Date Type Department Care Team ([facility] st Contact Info) Description 09/15/2024 Refill [facility] MEDICINE [address] [place] [address] Princess Min FNP [address] [place], [place] [phone] Social History Tobacco Use Types Packs/Day Years [...] documented as of this encounter Care Teams Door Repairer Bus Relationship Specialty Start Date End Date Princess Min FNP [address] [place] [address] PCP - General Family Medicine 02/10/24 documented as of this encounter
--- OUTSIDE RECORDS SUMMARY | 2024-09-22 12:02 | XMS_ITS | Encounter Summary ---
Author Organization [employer] Address [address] [facility] 7t [place] [address] Care Team Providers Care Online Activist Name Role Phone Princess Min TONGUE PRESSER Primary Care Provider [phone] Reason for Visit * Reason Onset Date Comments Durable Medical Equipment 09/18/2024 Encounter Details Date Type Department Care Team (Late st Contact Info) Description 09/18/2024 Telephone [facility] [address] [place], [place] [phone] Princess Min FNP [address] [place] [address] Durable Medical Equipment Social History Tobacco Use [...] documented as of this encounter Care Teams Online Activist Relationship Specialty Start Date End Date Princess Min FNP [address] [place] [address] PCP - General Family Medicine 02/10/24 documented as of this encounter
--- OUTSIDE RECORDS SUMMARY | 2024-09-22 12:02 | XMS_ITS | Encounter Summary ---
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 [...] for the pain. Please contact pt at [phone]. documented in this encounter Plan of Treatment Not on file documented as of this encounter Visit Diagnoses Not on filedocumented in this encounter Additional Health Concerns Assessment Noted Time PHQ-9 Depression Total Score: 3 03/03/20 24 11:33 AM EDT documented as of this encounter Care Teams Crm Dynamics Developer Relationship Specialty Start Date End Date Princess Min FNP [address] [place] [id number] PCP - General Family Medicine 02/10/24 documented as of this encounter
--- OUTSIDE RECORDS SUMMARY | 2024-09-22 12:02 | XMS_ITS | Encounter Summary ---
Author Organization [employer] Address [address] [facility] 7t [place] [address] Care Team Providers Care Supervisor Final Name Role Phone Princess Min Primary Care Provider [phone] Reason for Visit * Reason Onset Date Comments Nurse Triage 09/15/2024 Encounter Details Date Type Department Care Team ([facility] st Contact Info) Description 09/15/2024 Telephone [facility] MEDICINE [address] [place] [address] Princess Min FNP [address] [place], [place] [phone] Nurse Triage Social History Tobacco Use Types [...] AM EST Triage call returned with BLS #[id number] Alirio. Patient with asthma and has had [...] patient in agreement with plan. Will have DIRECTOR OF LEARNING bring her to [facility] today.No PCP or Team appts. Available at time of call. [facility] hours and availability provided [...] Reason: Any trouble breathing through the mouth Japanese speaker The caller accepted this outcome. documented in this encounter Plan of Treatment Not on file documented as of this encounter Visit Diagnoses Not on filedocumented in this encounter Additional Health Concerns Assessment Noted Time PHQ-9 Depression Total Score: 3 03/03/20 24 11:33 AM EDT documented as of this encounter Care Teams Supervisor Final Relationship Specialty Start Date End Date Princess Min FNP [address] [place] [address] PCP - General Family Medicine 02/10/24 documented as of this encounter
== END 2024-09-21 10:33 | disposition home or self-care (01) ==
LOC: HO.HOSX 10:32
PROVIDERS: Visit Provider Physician Assistant
DX: Z01.818 Encounter for other preprocedural examination (principal); T84.033A Mechanical loosening of internal left knee prosthetic joint, initial encounter; M25.562 Pain in left knee; G89.29 Other chronic pain
CPT/HCPCS: 73562; 99212

== ENCOUNTER → 2024-09-27 07:08 | Day surgery (SDC) | payer MEDICAID, SELFPAY ==
--- NOTE | 2024-09-04 | ECG_ITS ---
Test Reason : PRE OP Blood Pressure : */* mmHG Vent. Rate : 58 BPM Atrial Rate : 58 BPM P-R Int : 140 ms QRS Dur : 86 ms QT Int : 438 ms P-R-T Axes : 10 33 44 degrees QTcB Int : 429 ms Sinus bradycardia Otherwise normal ECG When compared with ECG of 28-May-2023 14:07, No significant change was found Referred By: Karishma Jacome Electronically Signed By: JOSE DICKEY MD
[2024-09-04 10:41] VITALS: BP 146/71; PULSE 62; RESP 18; O2SAT 99; BMI 42.9
--- NOTE | 2024-09-04 11:01 | HO.ANESPROP2 ---
HPI - Anesthesia Eval Consult details Narrative: Pt presented DOS with asthma exac. Cx'd and referral to pulmo requested. 59yo F for Left Knee Total Revision, 09/27/24 Medical clearance pending Cardiac optimized No recent illness No CP/SOB with limited activity BMI 43% GERD: ppi controls Asthma: Ventolin 2 puffs BID DM2: FBS < 100 usually Anesthesia Pre-Procedure Meds Is the patient on any of the following meds?: GLP1/DPP4 PMFSH Active Problems Active Problems: All Active Problems Obesity, Class II, BMI 35-39.9 (Acute) Chronic knee pain after total replacement of left knee joint (Acute) Arthralgia of knee, left (Acute) Peroneal tendonitis (Acute) Status post total knee replacement, left (Acute) BMI 40.0-44.9, adult (Acute) Contusion of left knee (Acute) Primary osteoarthritis of left knee (Acute) S/P right unicompartmental knee replacement (Acute) Osteoarthritis of knees, bilateral (Acute) Colon cancer screening (Acute) Hypothyroidism (Acute) Type 2 diabetes mellitus (Acute) Chronic diarrhea (Acute) Drug induced constipation (Acute) Past Medical History Medical History (Updated 09/28/24 @ 12:13 by Harsha Laureano MD) Back pain Arthritis Anemia GERD (gastroesophageal reflux disease) History of headache Osteoarthritis of knees, bilateral Depression Asthma High cholesterol Hypothyroidism Type 2 diabetes mellitus Bilateral carpal tunnel syndrome Fibromyalgia Chronic diarrhea Drug induced constipation Family History Family History Mother No problems noted. Father Cancer Sister Breast cancer Family history of problems with anesthesia: No Surgical History Surgical History (Updated 09/04/24 @ 11:04 by Indy Cunningham RN) History of total left knee replacement History of total right knee replacement (TKR) Hx of bilateral cataract extraction History of esophagogastroduodenoscopy (EGD) H/O colonoscopy Hx of hand surgery History of cholecystectomy (~2011) S/p bilateral carpal tunnel release (~2003) Hx of laparoscopic adjustable gastric banding (~2009) History of removal of laparoscopic gastric banding device (~10/2012) H/O: hysterectomy (~10/2012) History of Problems with Anesthesia: No Social History Social History (Updated 09/21/24 @ 09:41 by Bernard Osorio) Household Members: Family Household Members Other:: sister Housing: House Are you a primary summer child caregiver to a significant other at home: No Do you presently have visiting nurse or other home services: Yes (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 If so, by whom?: No Are you DNR?: No Advance Directives: No Advance Directives Information Provided: Yes Advance Directives on File: No Recently lost weight without trying: No Eating poorly because of decreased appetite: No Nutrition Risks: No Nutritional Risk Patient : No : No Poor oral hygiene: Yes (full upper and lower denture) service: No Current occupational status: disabled Meds Allergies Allergy/AdvReac Type Severity Reaction Status Date / Time cortisone [CORTISONE] Allergy Intermediate ELEVATES Verified 09/05/24 09:15 BLOOD SUGAR ibuprofen [IBUPROFEN] Allergy Intermediate GI UPSET, Verified 09/05/24 09:15 stomach upset mayonnaise [MAYONNAISE] Allergy Mild RASH Verified 09/05/24 09:15 naproxen [NAPROXEN] AdvReac Intermediate STOMACH Verified 09/05/24 09:15 UPSET Vicodin Allergy Unknown palpitation Uncoded 09/05/24 09:15 s,hypertens ion Cortisone AdvReac Unknown hyperglycem Uncoded 09/05/24 09:15 ia Home Medications ?Medication ?Instructions ?Recorded ?Confirmed ?Last Taken ?Type bupropion HCl 300 mg 24 hr tablet, 300 mg PO QAM 05/16/20 09/05/24 09/27/24 06:10 History extended release (Wellbutrin XL) furosemide 20 mg tablet (Lasix) 20 mg PO DAILY 05/16/20 09/05/24 06/08/23 History levothyroxine 150 mcg tablet 150 mcg PO MOTUWETHFRSA@0600 05/16/20 09/05/24 09/27/24 06:10 History metformin 500 mg tablet 500 mg PO DAILY 05/16/20 09/05/24 06/07/23 History montelukast 10 mg tablet 10 mg PO QPM 05/16/20 09/05/24 06/08/23 History (Singulair) insulin glargine 100 unit/mL (3 30 unit subcut BEDTIME 11/05/22 09/05/24 06/08/23 History mL) subcutaneous pen (Lantus Solostar U-100 Insulin) irbesartan 300 mg tablet 300 mg PO DAILY 11/05/22 09/05/24 06/08/23 History lancets 33 gauge (TRUEplus Lancets) #100 ea 11/05/22 11/05/22 06/08/23 History pen needle, diabetic 32 gauge x #50 ea 11/05/22 11/05/22 06/08/23 History (Pentips Pen Needle) lidocaine 5 % topical patch 1 patch topical DAILY PRN Pain 05/28/23 09/05/24 06/08/23 History (Lidoderm) pantoprazole 20 mg tablet,delayed 20 mg PO QAM 05/28/23 09/05/24 09/27/24 06:10 History release amitriptyline 50 mg tablet 50 mg PO BEDTIME 03/09/24 09/05/24 Unknown History carvedilol 3.125 mg tablet 3.125 mg PO BEDTIME 03/09/24 09/05/24 09/27/24 06:10 History clonazepam 0.5 mg tablet 0.5 mg PO TID PRN Anxiety 03/09/24 09/05/24 Unknown History cyanocobalamin (vitamin B-12) 1,000 mcg PO DAILY 03/09/24 09/05/24 Unknown History 1,000 mcg tablet dulaglutide 3 mg/0.5 mL 3 mg subcut QWEEK 03/09/24 09/05/24 Unknown History subcutaneous pen injector (Trulicity) melatonin 5 mg tablet 10 mg PO BEDTIME PRN Insomnia 03/09/24 09/05/24 Unknown History naloxone 4 mg/actuation nasal spray 1 spray intranasal DAILY PRN 03/09/24 09/05/24 Unknown History Opiate Reversal topiramate 200 mg tablet 200 mg PO BEDTIME 03/09/24 09/05/24 Unknown History albuterol sulfate 2.5 mg/3 mL 2.5 mg inhalation Q4-6H PRN 09/04/24 09/05/24 Unknown History (0.083 %) solution for nebulization Shortness Of Breath Or Wheezing albuterol sulfate 90 mcg/actuation 2 puff inhalation BID Shortness Of 09/04/24 09/05/24 09/27/24 06:10 History aerosol inhaler (Ventolin HFA) Breath Or Wheezing aspirin 325 mg tablet 325 mg PO DAILY 09/04/24 09/05/24 Unknown History Exam Height,Weight and Vital Signs: Height 5 ft 1 in Weight 102.965 kg Last Vital Signs Pulse 62 09/04/24 10:41 Resp 18 09/04/24 10:41 BP 146/71 H 09/04/24 10:41 Pulse Ox 99 09/04/24 10:41 O2 Del Method Room Air 09/04/24 10:41 Pertinent Lab Results Pertinent Lab Results: Lab Results 09/04/24 09/04/24 09/21/24 Range/Units 10:15 11:40 10:15 WBC 5.8 (4.8-10.8) X10*3/uL RBC 4.27 (4.20-5.50) X10*6/uL Hgb 13.1 (12.0-16.0) g/dl Hct 39.7 (37.0-47.0) % MCV 93.0 (80.0-98.0) fL MCH 30.7 (27.0-33.0) pg MCHC 33.0 (31.0-35.0) g/dl RDW 13.2 (11.0-16.0) % Plt Count 182 (160-400) X10*3/uL MPV 10.3 (9.4-12.3) fL Absolute Nucleated RBC 0.000 (0.0-0.012) X10*3/uL Nucleated RBC % (auto) 0.0 (0.0-0.2) /100WBC Sodium 142 (135-145) mmol/L Potassium 3.9 (3.3-5.1) mmol/L Chloride 111 H (96-108) mmol/L Carbon Dioxide 25 (22-29) mmol/L Anion Gap 10 L (12-20) BUN 10 (9-16) mg/dL Creatinine 0.79 (0.5-1.4) mg/dL Estim Creat Clear Calc 82.5 Estimated GFR > 60 Random Glucose 67 (60-115) mg/dL Estimat Average Glucose 137 mg/dL Hemoglobin A1c % 6.4 H (<6.0) % Calcium 8.8 (8.4-10.2) mg/dL Nasal Screen MRSA (PCR) NEGATIVE (Negative) Nasal S. aureus Screen POSITIVE A (Negative) Nasal MRSA/S.aureus Interp SEE NOTE Blood Type O Positive Antibody Screen NEGATIVE Narrative Narrative: EKG 08/2023 Vent. Rate : 58 BPM Atrial Rate : 58 BPM P-R Int : 140 ms QRS Dur : 86 ms QT Int : 438 ms P-R-T Axes : 10 33 44 degrees QTcB Int : 429 ms Sinus bradycardia Otherwise normal ECG When compared with ECG of 28-May-2023 14:07, No significant change was found Airway Mallampati Class: III TM Dist: >3cm Neck ROM: Full Denture: Upper and Lower Heart: RRR Lungs: CTAB Assessment and Plan Assessment Anesthesia Assessment: Anesthesia Plan Discussed and PAT Visit Final Anesthetic Review Family History of Problems with Anesthesia: No History of Problems with Anesthesia: No
[2024-09-04 12:04] LABS: Hematocrit 39.7 % (37.0-47.0); Hemoglobin 13.1 g/dl (12.0-16.0); Mean Corpuscular Hemoglobin 30.7 pg (27.0-33.0); Mean Platelet Volume 10.3 fL (9.4-12.3); Platelet Count 182 X10*3/uL (160-400); Red Blood Count 4.27 X10*6/uL (4.20-5.50); Red Cell Distribution Width 13.2 % (11.0-16.0); White Blood Count 5.8 X10*3/uL (4.8-10.8)
[2024-09-04 12:13] LABS: Estimated Average Glucose 137 mg/dL; Hemoglobin A1C 163.5145 umol/L; Hemoglobin A1c % 6.4 % (<6.0); Total Hemoglobin (HGBA1C) 3501.7022 umol/L
[2024-09-04 12:31] LABS: MRSA Nasal PCR NEGATIVE (Negative); SA Nasal PCR POSITIVE (Negative)
[2024-09-04 12:32] LABS: Anion Gap 10 (12-20); Blood Urea Nitrogen 10 mg/dL (9-16); Calcium 8.8 mg/dL (8.4-10.2); Carbon Dioxide 25 mmol/L (22-29); Chloride 111 mmol/L (96-108); Creatinine Clr Calc Pharmacy 82.5; Estimated Glomerular Filt Rate > 60; Glucose Random 67 mg/dL (60-115); Potassium 3.9 mmol/L (3.3-5.1); Sodium 142 mmol/L (135-145)
[2024-09-27 07:24] VITALS: BMI 42.2
--- NOTE | 2024-09-27 07:41 | MHC.SHP ---
Pre-Procedural Eval Section A - 24 Hr Update-Section A only Date of Service: 09/27/24 The patient is an INPATIENT: No Changes since office visit: No Cold of Flu in the past 2 weeks, No New Medical Problems, No Changes in Medication and No Patient answered all questions The patient has been examined within 24 hours of the surgical procedure. The History & Physical has been completed within 30 days and I have reviewed it.: Yes Section B - Complete if H&P > 30 days Chief Complaint: Presence of left artificial knee,chronic pain Allergies: Allergies Allergy/AdvReac Type Severity Reaction Status Date / Time cortisone [CORTISONE] Allergy Intermediate ELEVATES Verified 09/05/24 09:15 BLOOD SUGAR ibuprofen [IBUPROFEN] Allergy Intermediate GI UPSET, Verified 09/05/24 09:15 stomach upset mayonnaise [MAYONNAISE] Allergy Mild RASH Verified 09/05/24 09:15 naproxen [NAPROXEN] AdvReac Intermediate STOMACH Verified 09/05/24 09:15 UPSET Vicodin Allergy Unknown palpitation Uncoded 09/05/24 09:15 s,hypertens ion Cortisone AdvReac Unknown hyperglycem Uncoded 09/05/24 09:15 ia Plan I have reviewed the history and physical and performed a pertinent physical examination on my patient. No changes have occurred unless specified. Time Spent With Patient Time: Total time managing care of this patient today ____ minutes.
[2024-09-27 07:56] LABS: Glucose, Whole Blood 318 mg/dL (60-115)
[2024-09-27 08:01] LABS: Hematocrit 38.4 % (37.0-47.0); Hemoglobin 13.1 g/dl (12.0-16.0)
--- NOTE | 2024-09-27 08:12 | PC.NURSE ---
poc elevated. exp wheezing throughout. last dose of prednisone was for asthma exac. was on it for five days. global head advertiser solutions by bedside, anaesthesia and surgeon. cancelled. called daughter for a ride home. brought downstairs in wheelchair. awre of plan of care. cxr to be performed as an outpatient.
== END ==
PROVIDERS: Nurse Practitioner; Physician Assistant; PCP Registered Nurse; Visit Provider Orthopaedic Surgery
DX: M25.562 Pain in left knee (principal); Z53.09 Procedure and treatment not carried out because of other contraindication; R73.9 Hyperglycemia, unspecified; R06.2 Wheezing
CPT/HCPCS: 36415; 80048; 82947; 83036; 85014; 85018; 85027; 86850; 86900; 86901; 87640; 87641; 93005

== ENCOUNTER 2024-10-18 10:11 | Outpatient (AMB) | payer MEDICAID, SELFPAY ==
[2024-10-18 10:14] VITALS: BP 140/70; PULSE 74; O2SAT 98; BMI 43.6
--- NOTE | 2024-10-18 10:14 | A.OFFVIS_ITS ---
Vital Signs 10/18/24 10:14 Height 5 ft 1 in Weight 231 lb BMI 43.6 BP 140/70 H Pulse 74 Pulse Source Pulse Oximeter Pulse Oximetry (%) 98 Oxygen Delivery Method Room Air Intake Visit Reasons: Asthma Fur Blower Operator Required: Yes Fur Blower Operator Name: Sarita #[id number] Construction Technology Instructor: Construction Technology Instructor offered & declined Accompanied by: Self / Same As Patient Allergies cortisone [CORTISONE] Allergy (Intermediate, Verified 10/18/24 10:24) ELEVATES BLOOD SUGAR ibuprofen [IBUPROFEN] Allergy (Intermediate, Verified 10/18/24 10:24) GI UPSET, stomach upset mayonnaise [MAYONNAISE] Allergy (Mild, Verified 10/18/24 10:24) RASH naproxen [NAPROXEN] Adverse Reaction (Intermediate, Verified 10/18/24 10:24) STOMACH UPSET Vicodin Allergy (Unknown, Uncoded 10/18/24 10:24) palpitations,hypertension Cortisone Adverse Reaction (Unknown, Uncoded 10/18/24 10:24) hyperglycemia Medication List - Last Reconciled 10/18/24 by Raine Champagne LPN albuterol sulfate 90 mcg/actuation (Ventolin HFA) 2 puffs inhalation BID albuterol sulfate 2.5 mg inhalation Q4-6H PRN amitriptyline 50 mg PO BEDTIME aspirin 325 mg PO DAILY blood-glucose meter (FreeStyle Lite Meter kit) As directed checks 4 X/day bupropion HCl XL (Wellbutrin XL) 300 mg PO QAM [cane As directed] carvedilol 3.125 mg PO BEDTIME clonazepam 0.5 mg PO TID PRN cyanocobalamin (vitamin B-12) 1,000 mcg PO DAILY diclofenac sodium 1% (Voltaren Arthritis Pain) 2 grams topical QID dulaglutide (Trulicity) 3 mg subcut QWEEK furosemide (Lasix) 20 mg PO DAILY insulin glargine (Lantus Solostar U-100 Insulin) 30 units subcut BEDTIME irbesartan 300 mg PO DAILY lancets (TRUEplus Lancets) As directed levothyroxine 150 mcg PO MOTUWETHFRSA@0600 lidocaine 5% (Lidoderm) 1 patch See Protocol topical DAILY PRN melatonin 10 mg PO BEDTIME PRN metformin 500 mg PO DAILY montelukast (Singulair) 10 mg PO QPM naloxone 4 mg/actuation 1 spray intranasal DAILY PRN pantoprazole 20 mg PO QAM pen needle, diabetic (Pentips Pen Needle) As directed once a day topiramate 200 mg PO BEDTIME walker Folding Front wheeled walker \duration 99 days HPI HPI Asthma: Details: Argelia is a pleasant 59 year old female, current minimal smoker, with 20+ pack year history with underlying asthma. She was referred by orthopedics for pulmonary evaluation. She was scheduled for left total knee revision on 09/27 however surgery was canceled by anesthesia due to asthma exacerbation and recently prescribed prednisone by urgent care. She reports worsening asthma over the last few months. She has been using albuterol MDI multiple times per day with good effect. Previously she was on Flovent but this was d/c for unknown reasons. She continues to report easily fatiguing with activity however denies dyspnea, wheezing, or chest tightness. She endorses mild BLE edema, denies orthopnea or PND, reportedly compliant with lasix and under the care of cardiology. She reports asthma dx as a child, never requiring intubation/hospitalizations related to respiratory distress. She denies any seasonal allergies and no pets. She denies occupational exposures. She reports two sisters with h/o asthma. [facility] Medical History (Updated 10/18/24 @ 15:32 by Alycia Miguel NP) Back pain Arthritis Anemia GERD (gastroesophageal reflux disease) History of headache Osteoarthritis of knees, bilateral Depression Asthma High cholesterol Hypothyroidism Type 2 diabetes mellitus Bilateral carpal tunnel syndrome Fibromyalgia Chronic diarrhea Drug induced constipation Surgical History (Updated 09/04/24 @ 11:04 by Indy Cunningham RN) History of total left knee replacement History of total right knee replacement (TKR) Hx of bilateral cataract extraction History of esophagogastroduodenoscopy (EGD) H/O colonoscopy Hx of hand surgery History of cholecystectomy (~2011) S/p bilateral carpal tunnel release (~2003) Hx of laparoscopic adjustable gastric banding (~2009) History of removal of laparoscopic gastric banding device (~10/2012) H/O: hysterectomy (~10/2012) Family History Mother No problems noted. Father Cancer Sister Breast cancer Social History (Updated 09/21/24 @ 09:41 by Bernard Osorio) Household Members: Family Household Members Other:: sister Housing: House Are you a primary acute care occupational therapist to a significant other at home: No Do you presently have visiting nurse or other home services: Yes (HOTEL MAINTENANCE ENGINEER) Alcohol intake: current Alcohol intake frequency: holidays/special occasions only Comment: COUNTS CORRECT Patient Tobacco Use Status: Current everyday Tobacco user Tobacco use type: Cigarette Cigarettes Per Day: 3 Years Smoked: 47 service: No Current occupational status: disabled Review of Systems Const Denies chills, Denies excessive sweating, Denies fever(s), Denies headache(s) and Denies night sweats Eyes Denies dry eyes, Denies irritation and Denies itchy eyes ENT Reports Normal hearing present and Denies headache(s) Card Denies chest pain, Denies chest pain at rest, Denies chest pain with activity, Denies claudication, Denies leg edema, Denies dyspnea, Denies dyspnea on exertion, Denies orthopnea and Denies paroxysmal nocturnal dyspnea Resp Denies change in phlegm color, Denies chest congestion, Denies cough, Denies hemoptysis, Denies excessive phlegm production, Denies pain on inspiration, Denies pain with cough, Denies dyspnea, Denies dyspnea on exertion, Denies stridor and Denies wheezing Musc Denies myalgias Neuro Reports Normal hearing present and Denies headache(s) Endo Denies excessive sweating Robin/Lymph Denies lymphadenopathy Aller/Immun Denies itchy eyes, Denies seasonal rhinorrhea and Denies wheezing Physical Exam Vital Signs: Last Vital Signs Pulse 74 10/18/24 10:14 BP 140/70 H 10/18/24 10:14 Pulse Ox 98 10/18/24 10:14 Oxygen Delivery Method Room Air 10/18/24 10:14 BMI result Body Mass Index 43.6 Const General: cooperative, healthy appearing, comfortable, no acute distress, well developed and alert Nutritional Appearance: obese Orientation/consciousness: patient oriented x3 Limitations: no limitations HEENT Head: Yes normal to inspection, Yes normocephalic and Yes atraumatic Ears: hearing grossly normal bilaterally and external ears normal Eyes General: appearance normal, both eyes and all related structures Eyelids: Yes eyelids normal Sclerae: sclerae normal EOM: EOMs intact bilaterally Neck Neck: Yes normal visual inspection and Yes no lymphadenopathy Lymphatic: no lymphadenopathy noted Chest Chest palpation & inspection: normal inspection of the chest Resp Effort & Inspection: normal respiratory effort, able to speak in complete sentences, no audible wheezes, no cough, no stridor, not tachypneic, no tripod positioning and no use of accessory muscles Auscultation: clear to auscultation bilaterally Cardio Jugular venous distension: no JVD Rate: regular rate Rhythm: regular rhythm Skin Other: warm, dry General skin exam: no rashes or lesions noted Neuro General: patient oriented x3 Cranial nerves: Yes Normal hearing present Cognition (Neuro): normal cognition Gait exam (Neuro): Normal gait present Extrem General: Yes normal to inspection, Yes capillary refill normal, Yes no clubbing, cyanosis or edema and Yes no pedal edema Psych Appearance: grossly normal and well kempt Speech and movement: Normal speech and movement present and Clear speech present Affect: normal affect Attitude: cooperative Thought process: Normal thought process present Thought content: Normal thought content present Insight: Good insight present (Psych) Judgement: Good judgement present (Psych) Assessment & Plan Assessment & Plan (1) Asthma: Code(s): J45.909 - Unspecified asthma, uncomplicated Category: Medical (2) Nicotine dependence, cigarettes, uncomplicated: Code(s): F17.210 - Nicotine dependence, cigarettes, uncomplicated Category: Medical Plan Argelia presents for pulmonary evaluation for worsening control of asthma. Will empirically start Breo as patient reports frequent use of albuterol MDI. Discussed importance of good oral hygiene to prevent thrush. Will send for PFT to assess severity of obstructive defect. Will send for CXR today and plan for CT chest given smoking history. Smoking cessation reviewed. All questions were answered and patient is in agreement of plan. Will follow up to review results and response to inhaler in 4 weeks or sooner if needed. Orders: Orders PFT pulmonary function test Today F17.210 - Nicotine dependence, cigarettes, uncomplicated, J45.909 - Unspecified asthma, uncomplicated CT chest wo IV con Today F17.210 - Nicotine dependence, cigarettes, uncomplicated XR chest 2V Today J45.909 - Unspecified asthma, uncomplicated Medications: New fluticasone furoate-vilanterol 100-25 mcg/dose (Breo Ellipta) 1 inh inhalation DAILY 60 ea 3RF Coding Level of Care Code New Pt Level 4 (43169) Diagnoses Asthma J45.909 Nicotine dependence, cigarettes, uncomplicated F17.210
--- OUTSIDE RECORDS SUMMARY | 2024-10-18 11:46 | XMS_ITS | Encounter Summary ---
Author Organization [employer] Address [address] [facility] [address]t [place] [address] Care Team Providers Care Applications Tester Name Role Phone Princess Min Primary Care Provider [phone] Princess Min Primary Care Provider Princess Min Primary Care Provider [phone] Reason for Visit * Reason Onset Date Comments Referral 11/20/2022 Encounter Details Date Type Department Care Team (Late st Contact Info) Description 11/20/2022 Telephone [facility] MEDICINE [address] [place] [address] Princess Min FNP [address] [place], [place] [phone] Referral Social History Tobacco Use Types Packs/Day [...] would like to see Dr Deras at [facility] because of her strong family hx of [...] Specialty: Seth Deras [facility] Location:[address] [place] [address] Dr Dorsey [address] [place] [address] Date&Time: n/a [place] Layer: n/a Please call pt to clarify. documented in this encounter Plan of Treatment Not on file documented as of this encounter Visit Diagnoses Not on filedocumented in this encounter Additional Health Concerns Assessment Noted Time PHQ-9 Depression Total Score: 023 9:25 AM EDT documented as of this encounter Care Teams Applications Tester Relationship Specialty Start Date End Date Princess Min FNP [address] [place] [address] PCP - General Family Medicine 03/20/22 12/26/23 Princess Min FNP [address] [place] [address] PCP - General Family Medicine 01/21/24 02/03/24 Princess Min FNP [address] [place] [address] PCP - General Family Medicine 02/10/24 documented as of this encounter
--- OUTSIDE RECORDS SUMMARY | 2024-10-18 11:46 | XMS_ITS | Encounter Summary ---
Author Organization [employer] Address [address] [facility] [address] [place] [address] Care Team Providers Care Cloth Painter Name Role Phone Princess Min Primary Care Provider [phone] Princess Min Primary Care Provider [phone] Princess Min Primary Care Provider [phone] Reason for Referral * Imaging (Routine) - Closed Specialty Diagnoses / Procedures Referred By Elaina t Referred To Contact Diagnoses Encounter for screening mammogram for malignant neoplasm of breast Procedures BI Mammogram Screening Bilateral Princess Min FNP [address] [place] [address] Phone: tel: fax: [address] Phone: tel: fax: Referral ID Status Reason Start Date Expiration Date Visits Re quested Visits Authorized [id number] Closed 11/23/2022 05/22/2023 1 1 Reason for Visit * Reason Onset Date Comments Referral 11/20/2022 Encounter Details Date Type Department Care Team (Late st Contact Info) Description 11/20/2022 Telephone [facility] MEDICINE [address] [place] [address] Princess Min FNP [address] [place], [place] [phone] Referral Social History Tobacco Use Types Packs/Day [...] fax order for mammo to [facility] and call to let Ms. Garcia know when completed. Thank you. * Telephone Encounter - Alissa Winkler - 11/20/2022 10:16 AM EDT Tc from pt requesting a mammogram referral . Location [facility]. documented in this encounter [...] documented as of this encounter Care Teams Cloth Painter Relationship Specialty Start Date End Date Princess Min FNP [address] [place] [address] PCP - General Family Medicine 03/20/22 12/26/23 Princess Min FNP [address] [place] [address] PCP - General Family Medicine 01/21/24 02/03/24 Princess Min FNP [address] [place] [address] PCP - General Family Medicine 02/10/24 documented as of this encounter
--- OUTSIDE RECORDS SUMMARY | 2024-10-18 11:46 | XMS_ITS | Encounter Summary ---
Author Organization [employer] [facility] Address [address] [facility] [address] [place] [address] Care Team Providers Care Herd Tester Name Role Phone Princess Min HOT METAL MIXER OPERATOR Primary Care Provider [phone] Encounter Details Date Type Department Care Team ([facility] st Contact Info) Description 10/06/2024 Population Health Risk Score [facility] (C3) Department [address] [facility] [address] [place] [id number] Provider, Population Health Generic Social History Tobacco Use Types Packs/Day Years [...] documented as of this encounter Care Teams Herd Tester Relationship Specialty Start Date End Date Princess Min FNP [address] [place] [address] PCP - General Family Medicine 02/10/24 documented as of this encounter
--- OUTSIDE RECORDS SUMMARY | 2024-10-18 11:46 | XMS_ITS | Encounter Summary ---
Author Organization [employer] Address [address] [facility] 7t [place] [address] Care Team Providers Care Military Pilot Name Role Phone Princess Min NETEZZA DEVELOPER Primary Care Provider [phone] Encounter Details Date Type Department Care Team ([facility] st Contact Info) Description 09/29/2024 11:15 AM EST Office Visit [facility] [address] [place], [place] [phone] Princess Min FNP [address] [place], [place] [phone] Moderate persistent asthma without complication (Primary Dx); Type 2 diabetes mellitus without complication, with long-term current use of insulin ([facility]); History of total knee arthroplasty, left Social History Tobacco Use Types Packs/Day Years [...] Sign Reading Time Taken Comments Blood Pressure 135/69 09/29/2024 11:10 AM EST Pulse 72 09/29/2024 11:10 AM EST Temperature 36.6 ??C (97.8 ??F) 09/29/2024 11:[address] Respiratory Rate 20 09/29/2024 11:10 AM EST Oxygen Saturation 98% 09/29/2024 11:10 AM EST Inhaled Oxygen Concentration - - Weight 101 kg (223 lb) 09/29/2024 11:10 AM EST Height 154.9 cm (5' 1 ) 09/29/2024 11:10 AM EST Body Mass Index 42.14 09/29/2024 11:10 AM EST documented in this encounter Progress Notes * Princess Min, BIANCA - 09/29/2024 11:15 AM EST SUBJECTIVE Patient ID: Argelia Oliver is a 59 y.o. female w/ PMH hypertension, T2DM, hypothyroid, mod persistent asthma who presents for an office visit. HPI: She was recently seen on 09/14/24, and was scheduled for left knee revision surgery on 09/27/24 at [facility]. Reports that morning of surgery, it was cancelled by anaesthesia due to pulmonary concerns. She ishere in office to see what next steps are needed in order to reschedule surgery as her knee continues to be in moderate-severe pain. Provider called [facility] Ortho - surgical services asst and confirmed details: she was determined to have asthma exacerbation during the anesthesia pre-op. Surgery cancelled by anesthesia and requested pulm referral. Pulm referral/clearance request was sent on 09/28/[address] Laureano. Once she is cleared by Pulm, they will be able to reschedule the surgery. They are hoping to reschedule her as soon as possible. Nothing needed from PCP office at this time. Ms. Garcia was present during the phone call and information communicated with her as well. All questions answered. Denies any wheezing, SOB, difficulty breathing. Reports her asthma is well controlled with current regimen. Continues with maintenance inhaler and rescue PRN. Social History Social History Narrative Living - living by herself, feels safe in current living situation. 1 youth services librarian that come to the house for assistance. [...] Positive for arthralgias. OBJECTIVE Visit Vitals BP 135/69 (BP Location: Left arm, Patient Position: Sitting, BP Cuff Size: Large adult) Pulse 72 Temp 97.8 ??F (36.6 ??C) (Oral) Resp 20 Ht 5' 1 (1.549 m) Wt 223 lb (101 kg) LMP (LMP Unknown) SpO2 98% BMI 42.14 kg/m?? Smoking Status Every Day BSA 2.08 m?? Physical Exam Constitutional: Appearance: Normal appearance. [...] Albuterol PRN -DME request for nebulizer 09/18/2024 (received) -DME request for humidifier sent to pharmacy on 09/29/24 Current Assessment & Plan -LCTAB on exam today, no wheezing auscultated -Cont current regimen, follow up precautions reviewed such as if using rescue inhaler > 2x/week Relevant Medications Humidifier [facility] Endocrine/Metabolic Diabetes mellitus ([facility]) Overview Lab Results Component Value Date HGBA1C 6.4 (H) 09/04/2024 HGBA1C 5.6 04/18/2024 HGBA1C 5.9 03/03/2024 HGBA1C 6.5 (H) 04/27/2023 -A1c goal </= 7.0%, well controlled Medications: -Invokana 300mg daily (SGLT2) -Lantus 28 units SQ nightly -Trulicity 0.75mg subcutaneous weekly (GLP1) -Reviewed med side effects and safety -Lifestyle recommendations reviewed -Pt to follow up with [facility] Endo Previous medications: - Ozempic (DC in May 2024 d/t SE - itching) Relevant Medications Dulaglutide (Trulicity) 1.5 MG/0.5ML solution auto-injector Other Relevant Orders POCT glucose manually resulted (Completed) Other History of total knee arthroplasty, left Overview 06/09/23 at [facility] - Dr. Laureano Current Assessment & Plan - Persistent pain with (+) effusion s/p fall at home - XR Feb 2024 in [facility] ED demonstrated increased demineralization along the subjacent proximal tibia,particularly subjacent to the medial flange of the prosthesis with possibile slight medial settling. Large joint effusion. - Apr 2024: Synovasure aspiration left knee by Dr. Laureano. Elevated CRP/sed rate. Joint fluid sentfor testing. - Initially scheduled for revision surgery 09/27/24, but not cleared by anaesthesia. Now pending Pullearance (referral through [facility] Ortho to [facility] Pulm) Follow up: per recall, sooner as needed. documented in this encounter Miscellaneous Notes * Assessment & Plan Note - BIANCA Arboleda - 10/01/2024 7:35 PM EDTAssociated Problem(s): History of total knee arthroplasty, left - Persistent pain with (+) effusion s/p fall at home - XR Feb 2024 in [facility] ED demonstrated increased demineralization along the subjacent proximal tibia,particularly subjacent to the medial flange of the prosthesis with possibile slight medial settling. Large joint effusion. - Apr 2024: Synovasure aspiration left knee by Dr. Laureano. Elevated CRP/sed rate. Joint fluid sentfor testing. - Initially scheduled for revision surgery 09/27/24, but not cleared by anaesthesia. Now pending Pullearance (referral through [facility] Ortho to [facility] Pulm) * Assessment & Plan Note - BIANCA Arboleda - 10/01/2024 7:34 PM EDTAssociated Problem(s): Moderate persistent asthma without complication -LCTAB on exam today, no wheezing auscultated -Cont current regimen, follow up precautions reviewed such as if using rescue inhaler > 2x/week documented in this encounter Plan of Treatment Not on file documented as of this encounter Procedures Procedure Name Priority Date/Time Associated Diagnosis Comments POCT GLUCOSE Routine 09/29/2024 11:12 AM EST Type 2 diabetes mellitus without complication, with long-term current use of insulin ([facility]) documented in this encounter Results * (ABNORMAL) POCT glucose manually resulted (09/29/2024 11:12 AM EST) Glucose Blood, POC 305(A) 60 - 200 mg/dL QC Media Lot # Comment:[id number] Lot# Expiration Date Comment:01/25/2025 Blood Capillary blood specimen / Unknown 09/29/2024 11:12 AM EST Princess VALENZUELA POINT OF CARE TEST ENTER/EDIT ORDERABLES Final Result documented in this encounter Visit Diagnoses Diagnosis Moderate persistent asthma without complication- Primary Type 2 diabetes mellitus without complication, with long-term current use of insulin ([facility]) History of total knee arthroplasty, left documented in this encounter Additional Health Concerns Assessment Noted Time PHQ-9 Depression Total Score: 3 03/03/20 24 11:33 AM EDT documented as of this encounter Care Teams Military Pilot Relationship Specialty Start Date End Date Princess Min FNP [address] [place] [address] PCP - General Family Medicine 02/10/24 documented as of this encounter
--- OUTSIDE RECORDS SUMMARY | 2024-10-18 11:46 | XMS_ITS | Encounter Summary ---
Author Organization [employer] Address [address] [facility] 7t [place] [address] Care Team Providers Care People Manager Name Role Phone Princess Min Primary Care Provider [phone] Reason for Visit * Reason Comments Med Refill Encounter Details Date Type Department Care Team ([facility] st Contact Info) Description 04/25/2024 Refill [facility] MEDICINE [address] [place] [address] Princess Min FNP [address] [place], [place] [phone] Social History Tobacco Use Types Packs/Day Years [...] documented as of this encounter Care Teams People Manager Relationship Specialty Start Date End Date Princess Min FNP [address] [place] [address] PCP - General Family Medicine 02/10/24 documented as of this encounter
--- OUTSIDE RECORDS SUMMARY | 2024-10-18 11:46 | XMS_ITS | Encounter Summary ---
Author Organization [employer] Address [address] [facility] 7t [place] [address] Care Team Providers Care Computer Graphics Illustrator Name Role Phone Princess Min Primary Care Provider [phone] Princess Min Primary Care Provider [phone] Princess Min Primary Care Provider [phone] Reason for Visit * Reason Onset Date Comments PT1 request 10/19/2022 Encounter Details Date Type Department Care Team (Late st Contact Info) Description 10/19/2022 Telephone [facility] MEDICINE [address] [place] [address] Princess Min FNP [address] [place], [place] [phone] PT1 request Social History Tobacco Use Types [...] / denial letter via mail. PT-1 Request [id number] Authorized - [facility] PT-1 Request [id number] Pending [facility] Specialty [address] [place] [address] * Telephone Encounter - Alissa Winkler - 10/19/2022 11:55 AM EDT Tc from pt requesting PT1 Location:[facility] Specialty: Provider Date&Time:N/a National Sales Associate: yes Uses cane Location: [facility] Specialty: Orthopedics Date&Time: N/a National Sales Associate: Yes Location:[facility] Specialty: [facility] Date&Time:N/a National Sales Associate: yes documented in this encounter Plan of Treatment Not on file documented as of this encounter Visit Diagnoses Not on filedocumented in this encounter Care Teams Computer Graphics Illustrator Relationship Specialty Start Date End Date Princess Min FNP [address] [place] [address] PCP - General Family Medicine 03/20/22 12/26/23 Princess Min FNP [address] [place] [address] PCP - General Family Medicine 01/21/24 02/03/24 Princess Min FNP [address] [place] [address] PCP - General Family Medicine 02/10/24 documented as of this encounter
--- OUTSIDE RECORDS SUMMARY | 2024-10-18 11:46 | XMS_ITS | Encounter Summary ---
Author Organization [employer] Address [address] [facility] [address] 7t [place] [address] Care Team Providers Care Medical Records Coder Name Role Phone Princess Min APPARATUS LINEMAN Primary Care Provider [phone] Encounter Details Date Type Department Care Team (Latest Contact Info) Description 09/29/2024 Travel Social History Tobacco Use Types Packs/Day [...] as of this encounter Care Teams Medical Records Coder Relationship Specialty Start Date End Date Princess Min FNP [address] [place] [address] PCP - General Family Medicine 02/10/24 documented as of this encounter
--- OUTSIDE RECORDS SUMMARY | 2024-10-18 11:46 | XMS_ITS | Encounter Summary ---
Author Organization [employer] Address [address] [facility] 7t [place] [address] Care Team Providers Care Furniture Fabricator Name Role Phone Princess Min Primary Care Provider [phone] Princess Min Primary Care Provider [phone] Princess Min Primary Care Provider [phone] Reason for Visit * Reason Onset Date Comments Triage 10/19/2022 Encounter Details Date Type Department Care Team ([facility] st Contact Info) Description 10/19/2022 Telephone [facility] MEDICINE [address] [place] [address] rPincess Min FNP [address] [place], [place] [phone] Triage Social History Tobacco Use Types Packs/Day [...] EDT Triage call returned to patient via [employer] window repairer [phone]. Patient reports only mild wheezing using albuterol [...] accepted this outcome Please contact pt at [phone] Senegalese speaker documented in this encounter Plan of Treatment Not on file documented as of this encounter Visit Diagnoses Not on filedocumented in this encounter Care Teams Furniture Fabricator Relationship Specialty Start Date End Date Princess Min FNP [address] [place] [address] PCP - General Family Medicine 03/20/22 12/26/23 Princess Min FNP [address] [place] [address] PCP - General Family Medicine 01/21/24 02/03/24 Princess Min FNP [address] [place] [address] PCP - General Family Medicine 02/10/24 documented as of this encounter
--- OUTSIDE RECORDS SUMMARY | 2024-10-18 11:46 | XMS_ITS | Encounter Summary ---
Author Organization [employer] Address [address] [facility] [address] [place] [address] Care Team Providers Care Endoscopy Technican Name Role Phone Princess Min Primary Care Provider [phone] Reason for Visit * Reason Comments Med Refill Encounter Details Date Type Department Care Team ([facility] st Contact Info) Description 10/03/2024 Refill [facility] MEDICINE [address] [place] [address] Princess Min FNP [address] [place], [place] [phone] Type 2 diabetes mellitus without complication, with long-term current use of insulin ([facility]) Social History Tobacco Use Types [...] Visit Diagnoses Diagnosis Type 2 diabetes mellitus without complication, with long-term current use of insulin ([facility]) documented in this encounter Additional Health Concerns Assessment Noted Time PHQ-9 Depression Total Score: 3 03/03/20 24 11:33 AM EDT documented as of this encounter Care Teams Endoscopy Technican Relationship Specialty Start Date End Date Princess Min FNP [address] [place] [address] PCP - General Family Medicine 02/10/24 documented as of this encounter
--- OUTSIDE RECORDS SUMMARY | 2024-10-18 11:46 | XMS_ITS | Encounter Summary ---
Author Organization [employer] Address [address] [facility] 7t [place] [address] Care Team Providers Care Hammer Setter Name Role Phone Princess Min Primary Care Provider [phone] Princess Min Primary Care Provider [phone] Princess Min Primary Care Provider [phone] Reason for Visit * Reason Onset Date Comments PT1 11/20/2022 Encounter Details Date Type Department Care Team (Late st Contact Info) Description 11/20/2022 Telephone [facility] MEDICINE [address] [place] [address] Princess Min FNP [address] [place], [place] [phone] PT1 Social History Tobacco Use Types Packs/Day [...] / denial letter via mail. PT-1 Request [id number] Authorized - [facility] [address] [address] * Telephone Encounter - Mayur Thomas - 11/20/2022 9:19 AM EDT Tc from pt requesting to Renew PT1 for Name of facility: n/a Specialty: All Future appts Location: [address] [place] [address] Date: n/a Time: n/a fax: n/a Phone: n/a wheelchair: n/a Critical Care Nurse Practitioner: Yes (Adult) For all future appts documented in this encounter Plan of Treatment Not on file documented as of this encounter Visit Diagnoses Not on filedocumented in this encounter Additional Health Concerns Assessment Noted Time PHQ-9 Depression Total Score: 24 023 9:25 AM EDT documented as of this encounter Care Teams Hammer Setter Relationship Specialty Start Date End Date Princess Min FNP [address] [place] [address] PCP - General Family Medicine 03/20/22 12/26/23 Princess Min FNP [address] [place] [address] PCP - General Family Medicine 01/21/24 02/03/24 Princess Min FNP [address] [place] [address] PCP - General Family Medicine 02/10/24 documented as of this encounter
--- OUTSIDE RECORDS SUMMARY | 2024-10-18 11:46 | XMS_ITS | Encounter Summary ---
Author Organization [employer] Address [address] [facility] 7t [place] [address] Care Team Providers Care Money Market Clerk Name Role Phone Princess Min Primary Care Provider [phone] Princess Min Primary Care Provider [phone] Princess Min Primary Care Provider [phone] Reason for Visit * Reason Onset Date Comments Appointment Request 11/20/2022 Encounter Details Date Type Department Care Team (Late st Contact Info) Description 11/20/2022 Telephone [facility] MEDICINE [address] [place] [address] Princess Min FNP [address] [place], [place] [phone] Appointment Request Social History Tobacco Use Types [...] to switching program. Please contact pt at [phone] Qatari Speaker documented in this encounter Plan of Treatment Not on file documented as of this encounter Visit Diagnoses Not on filedocumented in this encounter Additional Health Concerns Assessment Noted Time PHQ-9 Depression Total Score: 023 9:25 AM EDT documented as of this encounter Care Teams Money Market Clerk Relationship Specialty Start Date End Date Princess Min FNP [address] [place] [address] PCP - General Family Medicine 03/20/22 12/26/23 Princess Min FNP [address] [place] [address] PCP - General Family Medicine 01/21/24 02/03/24 Princess Min FNP [address] [place] [address] PCP - General Family Medicine 02/10/24 documented as of this encounter
--- OUTSIDE RECORDS SUMMARY | 2024-10-18 11:46 | XMS_ITS | Encounter Summary ---
Author Organization [employer] Address [address] [facility] 7t [place] [address] Care Team Providers Care Drywall Applicator Name Role Phone Princess Min Primary Care Provider [phone] Princess Min Primary Care Provider [phone] Princess Min Primary Care Provider [phone] Reason for Visit * Reason Onset Date Comments Durable Medical Equipment 11/19/2022 Encounter Details Date Type Department Care Team (Late st Contact Info) Description 11/19/2022 Telephone [facility] MEDICINE [address] [place] [address] Princess Min FNP [address] [place], [place] [phone] Durable Medical Equipment Social History Tobacco Use [...] before I couldprovide a referral number to [facility] to process DME. Patient understood and agreed with plan. * Telephone Encounter - Miracle Dickens - 12/08/2022 4:32 PM EDT Tc from pt regarding message below. Pt states [facility] is requesting a PA If any questions please contact pt at [phone] * Telephone Encounter - Barbie Montanez - 12/08/2022 12:34 PM EDT Scripts received from provider and faxed to [facility] as requested. Patient notified. * Telephone Encounter - Dean Alvarado - 12/08/2022 12:06 PM EDT Tc from pt requesting status update on script for commode and shower chair, states would like script to sent to [facility]. Please contact at [phone] * Telephone Encounter - Barbie Montanez - 11/19/2022 3:16 PM EDT Scripts for shower chair and commode generated for signature * Telephone Encounter - Jareth Cifuentes - 11/19/2022 2:55 PM EDT Tc from pt requesting a script for a commode also a script for a shower chair. To be faxed to [facility] Please contact pt at [phone] documented in this encounter Plan of Treatment Not on file documented as of this encounter Visit Diagnoses Not on filedocumented in this encounter Additional Health Concerns Assessment Noted Time PHQ-9 Depression Total Score: 023 9:25 AM EDT documented as of this encounter Care Teams Drywall Applicator Relationship Specialty Start Date End Date Princess Min FNP [address] [place] [address] PCP - General Family Medicine 03/20/22 12/26/23 Princess Min FNP [address] [place] [address] PCP - General Family Medicine 01/21/24 02/03/24 Princess Min FNP [address] [place] [address] PCP - General Family Medicine 02/10/24 documented as of this encounter
--- OUTSIDE RECORDS SUMMARY | 2024-10-18 11:47 | XMS_ITS | Encounter Summary ---
Author Organization [employer] Address [address] [facility] [address]t [place] [address] Care Team Providers Care Draw Frame Tender Name Role Phone Princess Min Primary Care Provider [phone] Reason for Visit * Reason Onset Date Comments Nurse Triage 09/27/2024 Encounter Details Date Type Department Care Team (Late st Contact Info) Description 09/27/2024 Telephone [facility] MEDICINE [address] [place] [address] Princess Min FNP [address] [place], [place] [phone] Nurse Triage Social History Tobacco Use Types [...] encounter Miscellaneous Notes * Telephone Encounter - Maria Del Rosario Cota RN - 09/27/2024 9:35 AM EST called pt to triage, spoke to pt. through kinderhook ditch tender. pt states went for surgery this morning, but was cancelled due to high BS(on Prednisone) and intermittent wheezing. pt reports took her usual Lantus dose last night but was 443 at the hospital this morning. pt also was having some wheezing and the anesthesiologist stated pt needed referral to Pulmonology before surgery could be done. pt was given 15 units of Regular insulin and her blood sugar came down to 318. pt has nebulizers andinhalers at home and has used with some relief. pt speaking in full sentences without pausing or audible distress. given appt with PCP Wednesday in [facility] at 11:15 for exam and recheck. pt will need surgery re scheduled as appropriate and may need another pre op. pt understands and agrees with plan. advised home care: rest, fluids, monitor BS, bring her monitor with her to the appt Wednesday, caution withdiet for now, and call back as needed. pt understands and agrees with plan. insurance verified. Protocol Used: Asthma Attack (Adult) Protocol-Based Disposition: See in Office or Video Visit within 2 Weeks Positive Triage Question: * Uses more than 1 quick-relief inhaler (e.g., albuterol, salbutamol) per month * All higher-acuity triage questions were negative Care Advice Discussed: * Reassurance and Education - Mild Asthma Attack * Asthma Attack * Asthma Attack - Symptoms * Drink Plenty of Liquids and Use a Humidifier * Hay Fever and Antihistamine Medicines * Avoid Asthma Triggers * Reasons To Call Back - An [...] You become worse * Telephone Encounter - Denisa Bradley - 09/27/2024 8:44 AM EST Symptoms: High Blood Sugar - Caller Reports (Readin at 8:10am), Wheezing Outcome: Talk to a nurse or provider within 15 minutes Reason: Known blood sugar above 300 The caller accepted this outcome. [phone] VENEZUELAN Pt states had knee surgery today but it couldn't be performed because the indicated that the wheezing should be checked first since he didn't know what could be happening with the pt and it couldinteract with the anesthesia. documented in this encounter Plan of Treatment Not on file documented as of this encounter Visit Diagnoses Not on filedocumented in this encounter Additional Health Concerns Assessment Noted Time PHQ-9 Depression Total Score: 3 03/03/20 24 11:33 AM EDT documented as of this encounter Care Teams Draw Frame Tender Relationship Specialty Start Date End Date Princess Min FNP [address] [place] [address] PCP - General Family Medicine 02/10/24 documented as of this encounter
--- OUTSIDE RECORDS SUMMARY | 2024-10-18 11:47 | XMS_ITS | Encounter Summary ---
Author Organization [employer] Address [address] [facility] 7t [place] [address] Care Team Providers Care Automatic Serging Machine Operator Name Role Phone Princess Min Primary Care Provider [phone] Princess Min Primary Care Provider [phone] Princess Min Primary Care Provider [phone] Reason for Visit * Reason Onset Date Comments PCP Switch 06/22/2023 Encounter Details Date Type Department Care Team (Late st Contact Info) Description 06/22/2023 Telephone [facility] MED[facility] [address] [place] [address] Princess Min FNP [address] [place], [place] [phone] PCP Switch Social History Tobacco Use Types [...] be seen by a doctor not a MIX[employer] F[employer]ER policy writer typist did express that it will be sometime [...] as of this encounter Care Teams Automatic Serging Machine Operator Relationship Specialty Start Date End Date Princess Min FNP [address] [place] [address] PCP - General Family Medicine 03/20/22 12/26/23 Princess Min FNP [address] [place] [address] PCP - General Family Medicine 01/21/24 02/03/24 Princess Min FNP [address] [place] [address] PCP - General Family Medicine 02/10/24 documented as of this encounter
--- OUTSIDE RECORDS SUMMARY | 2024-10-18 11:47 | XMS_ITS | Encounter Summary ---
Author Organization [employer] Address [address] [facility] 7t [place] [address] Care Team Providers Care Business Account Specialist Name Role Phone Princess Min Primary Care Provider [phone] Reason for Visit * Reason Comments Med Refill Encounter Details Date Type Department Care Team ([facility] st Contact Info) Description 09/15/2024 Refill [facility] [address] [place] [address] Princess Min FNP [address] [place], [place] [phone] Social History Tobacco Use Types Packs/Day Years [...] as of this encounter Care Teams Business Account Specialist Relationship Specialty Start Date End Date Princess Min FNP [address] [place] [address] PCP - General Family Medicine 02/10/24 documented as of this encounter
--- OUTSIDE RECORDS SUMMARY | 2024-10-18 11:47 | XMS_ITS | Encounter Summary ---
Author Organization [employer] Address [address] [facility] 7[address] [place] [address] Care Team Providers Care Interim Controller Name Role Phone Princess Min LOFT WORKER HEAD Primary Care Provider [phone] Reason for Visit * Reason Onset Date Comments Med Refill Pre-op Exam 09/21/2024 Encounter Details Date Type Department Care Team (Late st Contact Info) Description 09/21/2024 Refill [facility] [address] [place], [place] [phone] Princess Min FNP [address] [place] [address] Type 2 diabetes mellitus with hyperglycemia, with long-term current use of insulin ([facility]) Social History Tobacco Use Types Packs/Day [...] AM EST Notes have been faxed to [facility]-Dr. Laureano's office (otho surgeon) documented in this encounter Plan of Treatment Not on file documented as of this encounter Visit Diagnoses Diagnosis Type 2 diabetes mellitus with hyperglycemia, with long-term current use of insulin ([facility]) documented in this encounter Additional Health Concerns Assessment Noted Time PHQ-9 Depression Total Score: 3 03/03/20 24 11:33 AM EDT documented as of this encounter Care Teams Interim Controller Relationship Specialty Start Date End Date Princess Min FNP [address] [place] [address] PCP - General Family Medicine 02/10/24 documented as of this encounter
--- OUTSIDE RECORDS SUMMARY | 2024-10-18 11:47 | XMS_ITS | Patient Health Record ---
Author Organization [facility] Address [address] [place] [address] Care Team Providers Care Regional Director Of Admissions Name Role Phone OMERO SOTO MD Primary Care Provider Aidan Fried Jr Unavailable [phone] Reason For Referral Referring Provider First Name OMERO Referring Provider Last Name CHARLES Referred Organization [facility] Referred Provider Aidan Silva Jr Referred Address [address] [facility] [address],[place], [place],[address], Referred Provider Specialty Gastroentero logy Referral Priority Routine Encounters Encounter Location Date Provider Diagnosis [facility] [address] [facility] [address] [place] [address] 06/21/2024 Aidan Silva Jr Plan Of Treatment No Information Insurance Providers Payer Name Payer Address Payer Phone Subscriber Number Group Number Insured Name Patient Relationship to Insured Coverage Start Date Coverage End Date [facility]ICA[facility] [address] [place] [id number] [phone] [id number] MELINA CARLISLE NIELS Self - patient is the insured
--- OUTSIDE RECORDS SUMMARY | 2024-10-18 11:47 | XMS_ITS | Encounter Summary ---
Author Organization [employer] Address [address] [facility] [address] [place] [address] Care Team Providers Care Territory Sales Consultant Name Role Phone Princess Min Primary Care Provider [phone] Reason for Visit * Reason Onset Date Comments Durable Medical Equipment 09/12/2024 Encounter Details Date Type Department Care Team (Late st Contact Info) Description 09/12/2024 Telephone [facility] MEDICINE [address] [place] [address] Princess Min FNP [address] [place], [place] [phone] Durable Medical Equipment Social History Tobacco Use [...] as of this encounter Care Teams Territory Sales Consultant Relationship Specialty Start Date End Date Princess Min FNP [address] [place] [address] PCP - General Family Medicine 02/10/24 documented as of this encounter
--- OUTSIDE RECORDS SUMMARY | 2024-10-18 11:47 | XMS_ITS | Encounter Summary ---
Author Organization [employer] Address [address] [facility] 7t [place] [address] Care Team Providers Care Fire Controlman Name Role Phone Princess Min Primary Care Provider [phone] Princess Min Primary Care Provider [phone] Reason for Visit * Reason Onset Date Comments New Med Request 02/03/2024 Encounter Details Date Type Department Care Team (Late st Contact Info) Description 02/03/2024 Telephone [facility] [address] [place] [address] Princess Min FNP [address] [place], [place] [phone] New Med Request Social History Tobacco Use [...] documented as of this encounter Care Teams Fire Controlman Relationship Specialty Start Date End Date Princess Min FNP [address] [place] [address] PCP - General Family Medicine 01/21/24 02/03/24 Princess Min FNP [address] [place] [address] PCP - General Family Medicine 02/10/24 documented as of this encounter
--- OUTSIDE RECORDS SUMMARY | 2024-10-18 11:47 | XMS_ITS | Encounter Summary ---
Author Organization [employer] Address [address] [facility] [address] [place] [address] Care Team Providers Care Yarn Mercerizer Operator Helper Name Role Phone Princess Min Primary Care Provider [phone] Princess Min Primary Care Provider Reason for Visit * Reason Comments Med Refill Encounter Details Date Type Department Care Team ([facility] st Contact Info) Description 02/03/2024 Refill [facility] [address] [place] [address] Princess Min FNP [address] [place], [place] [phone] Hypothyroidism, unspecified type Social History Tobacco Use [...] documented as of this encounter Care Teams Yarn Mercerizer Operator Helper Relationship Specialty Start Date End Date Princess Min FNP [address] [place] [address] PCP - General Family Medicine 01/21/24 02/03/24 Princess Min FNP [address] [place] [address] PCP - General Family Medicine 02/10/24 documented as of this encounter
--- OUTSIDE RECORDS SUMMARY | 2024-10-18 11:47 | XMS_ITS | Clinical Summary ---
Author Organization [employer] Address [address] [facility] [address] [place] [address] Care Team Providers Care Airplane Patroller Name Role Phone Princess Min MANNEQUIN MAKER Primary Care Provider [phone] Allergies Active Allergy Reactions Criticality Noted Date [...] nostril(s). 2020 Active furosemide (Lasix) 20 MG tabletIndications:Order Processor maria fernanda diastolic heart failure ([facility]) Take 2 tablets by mouth once daily in the morning 180 tablet 1 2022 Active TRUEplus Lancets 33G miscIndications:Type 2 diabetes mellitus with hyperglycemia, unspecified whether intermodal customer service insulin use ([facility]) TEST BLOOD SUGAR TWICE DAILY 100 [...] hyperglycemia, with long-term current use of insulin ([facility]) USE WITH INSULIN DIRECTED 100 each 11 2023 Active metFORMIN (Glucophage) 500 MG tablet Take 2 tablets by mouth 2 times daily. 2023 Active glucose blood (FREESTYLE LITE) test stripIndications:Type 2 diabetes mellitus without complication, with long-term current use of insulin ([facility]) Test blood sugar twice daily 100 [...] 2 diabetes mellitus without complication, unspecified whether intermodal customer service insulin use ([facility]) TAKE 1 TABLET BY MOUTH EVERY [...] Victoza injections 100 each 12 06/14 Active cyanocobalamin (Vitamin B-12) 1000 MCG tabletIndications:Beto [...] DAILY. RINSE MOUTH AFTER USING. 13 g 2024 Active melatonin 5 MG tablet Take 1 tablet (5 mg) by mouth at bedtime. 30 tablet 11 09/15 Active Lantus SoloStar 100 UNIT/ML penIndications:Type 2 diabetes mellitus with hyperglycemia, with long-term current use of insulin (CMS/[facility]) INJECT 28 UNITS SUBCUTANEOUSLY AT BEDTIME 15 mL 3 2024 Active Humidifier miscIndications:Modera te persistent asthma without complication Use as needed 1 each 2024 Active Dulaglutide (Trulicity) 1.5 MG/0.5ML solution auto-injectorIndicatio ns:Type 2 diabetes mellitus without complication, with long-term current use of insulin (CMS/[facility]) Inject 1.5 mg under the skin 1 (one) time per week. 2 mL 2 2024 Active insulin glargine (Lantus SoloStar) 100 UNIT/ML penIndications:Type 2 diabetes mellitus with hyperglycemia, with long-term current use of insulin (CMS/[facility]) Inject 28 Units under the skin at bedtime. 15 mL 3 09/21 Discontinued Dulaglutide (Trulicity) 0.75 MG/0.5ML solution auto-injectorIndicatio ns:Type 2 diabetes mellitus without complication, with long-term current use of insulin (CMS/[facility]) Inject 0.5 mL (0.75 mg) under the skin 1 (one) time per week. 2 mL 3 10/06 Discontinued( Dose adjustment) predniSONE (Deltasone) 20 MG tablet Take 2 tablets (40 mg) by mouth Once per day for 5 days. 10 tablet 09/20 oxyCODONE (Roxicodone) 5 MG immediate release tabletIndications:Hist ory of total knee arthroplasty, left Take 1 tablet (5 mg) by mouth if needed each day for severe pain for up to 5 days. 5 tablet 09/23 Dulaglutide (Trulicity) 1.5 MG/0.5ML solution auto-injectorIndicatio ns:Type 2 diabetes mellitus without complication, with long-term current use of insulin (CMS/HCC) Inject 1.5 mg under the skin 1 (one) time per week. 2 mL 2 10/06 Discontinued( Dose adjustment) Active Problems Problem Noted Date Diagnosed Date History of total knee arthroplasty, left 024 Overview (04/02/2024): [place] [facility] [place] Assessment & Plan (10/01/2024 7:35 PM EDT): - Persistent pain with (+) effusion s/p fall at home - XR Feb 2024 in [facility] [place] demonstrated increased demineralization along the subjacent proximal tibia, particularly subjacent to the medial flange of the prosthesis with possibile slight medial settling. Large joint effusion. - Apr 2024: Synovasure aspiration left knee by Dr. Laureano. Elevated CRP/sed rate. Joint fluid sent for testing. - Initially scheduled for revision surgery 09/27/24, but not cleared by anaesthesia. Now pending Pulm clearance (referral through [facility] to [facility]) Assessment & Plan (05/28/2024 7:19 AM EST): - Persistent pain with (+) effusion s/p fall at home - XR Feb 2024 in [facility] [place] demonstrated increased demineralization along the subjacent [...] use, fewer than expected pills, and multiple PARTITION ASSEMBLER cancellations and NCNS, continue with taper for [...] -Left TKA performed 06/09/[address] Laureano ([facility]) Assessment & Plan (03/04/2024 6:12 PM EDT): DME requests for the following items placed 03/04/24: Shower chair Commode Hand Held Shower Head Assessment & Plan (10/18/2022 10:18 AM EDT): -DME for cane requested Migraine 04/15/2018 Overview (05/28/2024): Continues with Topiramate 200mg nightly and amitriptyline 50mg at bedtime Reports well controlled with current regimen Moderate persistent asthma without complication 09/08/2017 Overview (10/01/2024): -Continues with Asmanex 200mcg/act 1 puff BID, Singulair 10mg nightly, and Albuterol PRN -DME request for nebulizer 09/18/2024 (received) -DME request for humidifier sent to pharmacy on 09/29/24 Assessment & Plan (10/01/2024 7:34 PM EDT): -LCTAB on exam today, no wheezing auscultated -Cont current regimen, follow up precautions reviewed such as if using rescue inhaler > 2x/week Assessment & Plan (09/18/2024 1:44 PM EST): Assessment & Plan (10/18/2022 10:21 AM EDT): -Pt reports previously using ProAir, which worked better than ventolin. Interested in switching rescue inahler -Original plan to change to SMART therapy (Symbicort as controller and rescue), although difficulties with insurance coverage. -Spoke with [facility] pharmacy, will attempt to change to generic albuterol to see if works better for pt Diastolic heart failure 02/03/2017 Overview (05/28/2024): -Continues on Irbestartan 300mg daily at bedtime, furosemide 40mg daily, on SGLT2 -Following with [facility] - Dr. Calle -Pt denies SOB, swelling [...] recommendations reviewed -Pt to follow up with [facility] Previous medications: - Ozempic (DC in [...] intolerance, MCKEON, or palpitations -Previously followed by [facility], pt will call to schedule f/u Lab Results Component Value Date TSH 0.33 04/05/2023 Insomnia 05/27/2016 Trigger finger 05/27/2016 Overview (05/28/2024): Followed by [facility] PRN Vitamin D deficiency 04/17/2014 Cobalamin deficiency 03/23/2014 Mixed anxiety and depressive disorder 10/06/2013 Assessment & Plan (05/28/2024 7:27 AM EST): -Following with psych team from [facility] -Continue with Wellbutrin 300mg daily, -Denies SI/HI/thoughts [...] Encounters Date Type Department Care Team Description 10/06/2024 Population Health [facility] () Department [address] [phone] Provider, Population Health Generic 10/03/2024 Refill [facility] MEDICINE [address] [place] [address] Princess Min FNP Type 2 diabetes mellitus without complication, with long-term current use of insulin (CMS/HCC) 09/29/2024 11:15 AM EST Office Visit [facility] CH[facility] MED & PEDS [address], [place] [phone] Princess Min FNP Moderate persistent asthma without complication (Primary Dx); Type 2 diabetes mellitus without complication, with long-term current use of insulin (CMS/HCC); History of total knee arthroplasty, left 09/29/2024 Travel 09/27/2024 Telephone [facility] MEDICINE [address] [place] [address] Princess Min FNP Nurse Triage 09/27/2024 Orders Only GENERIC EXTERNAL DATA DEPARTMENT Provider, Generic External Data 09/21/2024 Orders Only GENERIC EXTERNAL DATA DEPARTMENT Provider, Generic External Data 09/21/2024 Refill [facility] PEDS [address] [place] [phone] Princess Min FNP Type 2 diabetes mellitus with hyperglycemia, with long-term current use of insulin (CMS/HCC) 09/20/2024 9:00 AM EST Office Visit [facility] MED [facility] PEDS [address] [place] [phone] Carri Sawant FNP Chronic pain of left knee (Primary Dx); Preop examination; Type 2 diabetes mellitus without complication, with long-term current use of insulin (CMS/HCC); Essential hypertension; Mild persistent asthma without complication 09/20/2024 Travel 09/18/2024 10:15 AM EST Office Visit [facility] MED & PEDS [address] [place] [address] Princess Min FNP Moderate persistent asthma without complication (Primary Dx); History of total knee arthroplasty, left; Encounter for screening mammogram for malignant neoplasm of breast; Healthcare maintenance; Routine health maintenance; Type 2 diabetes mellitus without complication, with long-term current use of insulin (CMS/HCC) 09/18/2024 Telephone [facility] MED [facility] PEDS [address] [place] [address] Princess Min FNP Durable Medical Equipment 09/18/2024 Travel 09/15/2024 1:20 PM EST Office Visit [facility] WALK-IN CENTER [address] [place] [phone] Alvaro Rocha MD Acute cough (Primary Dx); Wheezing; Nasal congestion; Moderate persistent asthma without complication 09/15/2024 Telephone [facility] MEDICINE [address] [place] [phone] Princess Min FNP Nurse Triage 09/15/2024 Refill [facility] MEDICINE [address] [place] [phone] Princess Min FNP 09/14/2024 Refill [facility] MEDICINE [address] [place] [address] Princess Min, MANNEQUIN MAKER Other migraine without status migrainosus, not intractable 09/14/2024 Telephone [facility] MED & PEDS [address] [place] [address] Abdifatah Martinez MA Chart Prep 09/12/2024 Refill [facility] MEDICINE [address] [place] [address] Princess Min FNP Major depressive disorder, recurrent, moderate (CMS/HCC); Anxiety disorder, unspecified 09/12/2024 Telephone [facility] MEDICINE [address] [place] [address] Princess Min FNP Durable Medical Equipment 09/11/2024 Refill [facility] MOBILE VACCINE CLINIC [address] [place] [address] Princess Min FNP Other migraine without status migrainosus, not intractable 09/07/2024 Refill [facility] MEDICINE [address] [place] [address] Princess Min FNP 09/04/2024 Orders Only GENERIC EXTERNAL DATA DEPARTMENT Provider, Generic External Data 08/17/2024 Telephone [facility] [address] [place] [address] Princess Min FNP Pre-Op appt. 08/16/[address] [phone] Princess Min FNP No Show 08/15/2024 Travel 08/15/2024 Telephone [facility] MED [facility] PEDS [address] [place] [address] Princess Min FNP July recall 08/13/2024 Refill [facility] MEDICINE [address] [place] [address] Princess Min FNP Primary hypertension 07/20/2024 Telephone [facility] MED [facility] PEDS [address] [place] [address] Abdifatah Martinez MA Chart Prep from Last 3 Months Immunizations Name Administration [...] Mass Index 42.14 09/29/2024 11:10 AM EST Plan of Treatment Health Maintenance [...] Vaccine: 50+ Years Completed 05/05/2022, 09/23/2016, 08/06/2000 HIV Screening Completed 09/18/2024, 09/24, 10/07/2021 Hepatitis C Screening Completed 09/18/2024 , 10/16/2022, 10/07/2021 Cervical Cancer Screening Discontinued HIB Vaccines [...] complication, with long-term current use of insulin (CMS/[facility]) HEMOGLOBIN + HEMATOCRIT Routine 09/27/2024 7:38 AM EST GLUCOSE, WHOLE BLOOD Routine 09/27/2024 7:35 AM EST TYPE AND SCREEN Routine 09/21/2024 10:15 AM EST ECG 12-LEAD Routine 09/20/2024 4:21 PM EST Preop examination PROTHROMBIN TIME-INR Routine 09/20/2024 9:54 AM EST Preop examination POCT GLYCATED HEMOGLOBIN, TOTAL Routine 09/20/2024 9:03 AM EST Type 2 diabetes mellitus without complication, with long-term current use of insulin (CMS/[facility]) POCT GLUCOSE Routine 09/20/2024 9:02 AM EST Type 2 diabetes mellitus without complication, with long-term current use of insulin (CMS/[facility]) ALBUMIN, RANDOM URINE W/CREATININE Routine 09/18/2024 11:31 AM EST Healthcare maintenance CBC WITH AUTO DIFFERENTIAL Routine 09/18/2024 11:22 AM EST Healthcare maintenance HIV 1/2 ANTIGEN/ANTIBODY, FOURTH GENERATION W/RFL Routine 09/18/2024 11:22 AM EST Healthcare maintenance RPR (MONITOR) W/REFL TITER Routine 09/18/2024 11:22 AM EST Healthcare maintenance HEPATITIS C VIRAL RNA, QUANTITATIVE, REAL-TIME PCR Routine 09/18/2024 11:22 AM EST Healthcare maintenance [...] TOMOSYNTHESIS BILATERAL Routine 02/09/2023 11:07 AM EDT COLONOSCOPY Routine 05/24/2017 from Last 3 Months or Most Recently Relevant to Health Maintenance Results * (ABNORMAL) POCT glucose manually resulted (09/29/2024 11:12 AM EST) Only the most recent of2 resultswithin the time period is included. Glucose Blood, POC 305(A) 60 - 200 mg/dL QC Media Lot # Comment:[id number] Lot# Expiration Date Comment:01/25/2025 Blood Capillary blood specimen / Unknown 09/29/2024 11:12 AM EST us Princess Min MANNEQUIN MAKER POINT OF CARE TEST ENTER/EDIT ORDERABLES Final Result * Hemoglobin and Hematocrit (09/27/2024 7:38 AM EST) Hemoglobin 13.1 12.0 - 16.0 g/dl [facility] Hematocrit 38.4 37.0 - 47.0 % [facility] 09/27/2024 7:38 AM EST 09/27/2024 7:48 AM EST us Generic External Data Provider LAB BLOOD ORDERAB LES Final Result Performing Organization Address City/[facility]/ZIP Co de Phone Number [facility] [address] [place] [phone] * (ABNORMAL) Glucose, Whole Blood (09/27/2024 7:35 AM EST) Glucose, Whole Blood 318(H) 60 - 115 mg/dL [facility] Comment:METER #: [id number] 09/27/2024 7:35 AM EST 09/27/2024 7:55 AM EST us Generic External Data Provider LAB BLOOD ORDERAB LES Final Result Performing Organization Address City/[facility]/ZIP Co de Phone Number [facility] [address] [place] [phone] * Type and screen (09/21/2024 10:15 AM EST) Blood Type OP [facility] Antibody Screen NEGATIVE [facility] 09/21/2024 10:1 5 AM EST 09/21/2024 10:33 AM EST Narrative [facility] - 09/21/2024 11:18 AM EST WITNESSED BY CLAIREURSING:Call Blood Bank (ext. [phone]) to band patient on admission.Type and Screen in effect until 2300 on [id number] expiration changed by SRI on 09/21/24Reason: PAT SPEC Generic External Data Provider LAB BLOOD BANK TE ST ORDERABLES Final Result [facility] [address] [place] [address] [phone] * ECG 12 lead (09/20/2024 4:21 PM EST) [facility] - 09/20/2024 4:21 PM EST NSR [facility] ECG ORDERABLES Final Result * (ABNORMAL) Prothrombin Time-INR (09/20/2024 9:54 AM EST) Prothrombin Time 10.3(L) 10.9 - 12.4 SEC [facility] INTERNATIONAL NORM RATIO 0.9 0.9 - 1.1 [facility] Comment:INTERNATIONAL NORMAL IZED RATIO (INR) [...] 9:54 AM EST 09/20/2024 2:18 PM EST [facility] LAB BLOOD ORDERABLES Final Re sult Performing Organization Address [facility] Co de Phone Number [facility] [address] [place] [phone] * (ABNORMAL) POCT A1C (09/20/2024 9:03 AM EST) Pathologist [facility] Hemoglobin A1C 7.9(A) 4.0 - 6.0 % QC Media Lot # Comment:[id number] Lot# Expiration Date Comment:05/12/2026 Blood 09/20/2024 9:03 AM EST [facility] POINT OF CARE TEST ENTER/EDIT ORDERABLES Final Result * Albumin, Random Urine W/Creatinine (09/18/2024 11:31 AM EST) Pathologist [facility] Creatinine, Urine 65.49 mg/dL [facility] Microalbumin Urine 8.0 mg/L [facility] Microalbum Creatinine Ratio Ur 12.2 <30 ug/mg cr [facility] Comment:Albumin/Creatinine R atio Reference Ranges: Normal: < 30 ug/mg creatinine Microalbuminuria: 30 - 300 ug/mg creatinineClinical Albuminuria: > 300 ug/mg creatinine Urine 09/18/2024 11:3 1 AM EST 09/18/2024 2:41 PM EST Princess Min [facility] URINE ORDERABLES Final Res ult Performing Organization Address [facility]/ZIP Co de Phone Number [facility] [address] [place] [address] [phone] * Hepatitis C Viral RNA, Quantitative, Real-Time PCR (09/18/2024 11:22 AM EST) Pathologist [facility] Hepatitis C Viral Load <15 NOT DETECTED NOT DETECTED IU/mL [facility] HCV Log PCR <1.18 NOT DETECTED NOT DETECTED Log IU/mL [facility] Comment:For additional infor gillian, please refer [email or web address](This link is being provided for informational/educational purposes only.)THIS TEST WAS PERFORMED AT:[facility] [place] [id number] GARCIA MD Blood 09/18/2024 11:2 2 AM EST 09/18/2024 2:41 PM EST us Princess Min MANNEQUIN MAKER LAB BLOOD ORDERABLES Final Res ult [facility] [address] [place] [address] [phone] * (ABNORMAL) CBC auto differential (09/18/2024 11:22 AM EST) White Blood Count 8.1 4.8 - 10.8 X10*3/uL [facility] Red Blood Count 4.26 4.20 - 5.50 X10*6/uL [facility] Hemoglobin 12.9 12.0 - 16.0 g/dl [facility] Hematocrit 37.8 37.0 - 47.0 % [facility] Mean Corpuscular Volume 88.7 80.0 - 98.0 fL [facility] Mean Corpuscular Hemoglobin 30.3 27.0 - 33.0 pg [facility] Mean Corpuscular HGB Conc 34.1 31.0 - 35.0 g/dl [facility] Red Cell Distribution Width 12.9 11.0 - 16.0 % [facility] Platelet Count 247 160 - 400 X10*3/uL [facility] Mean Platelet Volume 10.7 9.4 - 12.3 fL [facility] Neutrophils Percent Auto 67.4 45 - 73 % [facility] Imm Gran Pct Auto 1.7(H) 0.0 - 0.4 % [facility] Lymphocytes Percent Auto 24.5 20 - 40 % [facility] Monocytes Percent Auto 5.3 2 - 11 % [facility] Eosinophils Percent Auto 0.6 0 - 4 % [facility] Basophils Percent Auto 0.5 0 - 2 % [facility] NRBC Pct Auto 0.0 0.0 - 0.2 /100WBC [facility] Neutrophils Absolute Auto 5.5 2.0 - 8.3 x10*3/uL [facility] Imm Gran Abs Auto 0.14(H) 0.00 - 0.03 X10*3/uL [facility] Lymphocytes Absolute Auto 2.0 1.2 - 4.9 X10*3/uL [facility] Monocytes Absolute Auto 0.4 0.1 - 1.2 X10*3/uL [facility] Eosinophils Absolute Auto 0.1 0.0 - 0.4 X10*3/uL [facility] Basophils Absolute Auto 0.0 0.0 - 0.2 X10*3/uL [facility] NRBC Abs Auto 0.000 0.0 - 0.012 X10*3/uL [facility] Blood Venous blood specimen / Unknown 09/18/2024 11:22 AM EST 09/18/2024 2:41 PM EST us Princess Min MANNEQUIN MAKER LAB BLOOD ORDERABLES Final Res ult [facility] [address], [place] [phone] * RPR (Monitor) with Reflex to??Titer (09/18/2024 11:22 AM EST) RPR (Monitor) w/Refl Titer NON-REACTI VE NON-REACT MOOSE [facility] Comment:THIS TEST WAS PERFOR MED AT:[facility] [place] [id number] GARCIA MD Rapid Plasma Reagin Ab Titer TNP [facility] Blood Venous blood specimen / Unknown 09/18/2024 11:22 AM EST 09/18/2024 2:41 PM EST us Princess Min MANNEQUIN MAKER LAB BLOOD ORDERABLES Final Res ult Performing Organization Address City/[facility]/ZIP Co de Phone Number [facility] [address] [place] [phone] * HIV-1/2 Antigen and Antibodies, Fourth Generation, with Reflexes (09/18/2024 11:22 AM EST) HIV AB/AG Nonreactive Nonreactive [facility] Comment:HIV-1 p24 Ag and/or HIV-1/HIV-2 Ab not detected.A test result that is nonreactive does not exclude thepossibility of exposure to or infection with HIV-1 and/orHIV-2. Nonreactive results in this assay for individualswith prior exposure to HIV-1 and/or HIV-2 may be due toantigen and antibody levels that are below the limit ofdetection of this assay.The [employer] HIV Ag/Ab Combo assay result andsupplemental assay results should be interpreted inconjunction with the patient's clinical presentation,history and other laboratory results. If the results areinconsistent with clinical evidence, additional testing issuggested to confirm the result. Blood Venous blood specimen / Unknown 09/18/2024 11:22 AM EST 09/18/2024 2:41 PM EST us Princess Min MANNEQUIN MAKER LAB BLOOD ORDERABLES Final Res ult Performing Organization Address City/[facility]/ZIP Co de Phone Number [facility] [address] [place] [phone] * TSH with Reflex to Free T4 (09/18/2024 11:02 AM EST) TSH reflex Free T4 0.97 0.32 - 4.0 uIU/mL [facility] Blood 09/18/2024 11:0 2 AM EST 09/18/2024 2:41 PM EST Princess Min MANNEQUIN MAKER LAB BLOOD ORDERABLES Final Res ult Performing Organization Address [facility] de Phone Number [facility] [address] [place] [phone] [phone] * Lipid Panel, Standard (09/18/2024 11:02 AM EST) Triglycerides 136 <150 mg/dL [facility] Comment:Desirable Triglyceri de: less than 150 mg/dLBorderline High Triglyceride 150-199 mg/dLHigh Triglyceride: 200-499 mg/dLVery High Triglyceride: greater than or equal to 5OO mg/dL Cholesterol 156 <200 mg/dL [facility] Comment:Desirable Cholestero l: less than 200 mg/dLBorderline High Cholesterol: 200-239 mg/dLHigh Cholesterol: greater than 239 mg/dL LDL Cholesterol Calculated 75 <100 mg/dL [facility] Comment:Desirable LDL: less than 100 mg/dLNear Optimal/Above Optimal LDL: 110- 129 mg/dLBorderline High LDL: 130-159 mg/dLHigh LDL: 160-189 mg/dLVery High LDL: greater than or equal to 190 mg/dL HDL Cholesterol 54 >40 mg/dL [facility] Comment:Desirable HDL: great er than 40 mg/dL Note: This HDL assay may give artificially low results in patients with liver disease. Blood Venous blood specimen / Unknown 09/18/2024 11:02 AM EST 09/18/2024 2:41 PM EST Princess Min [facility] LAB BLOOD ORDERABLES Final Res ult Performing Organization Address [facility] Co de Phone Number [facility] [address] [place] [address] [phone] * (ABNORMAL) Comprehensive Metabolic Panel (09/18/2024 11:02 AM EST) Sodium 139 135 - 145 mmol/L [facility] Potassium 4.0 3.3 - 5.1 mmol/L [facility] Comment:Slight Hemolysis.Int erpret result with caution. Chloride 106 96 - 108 mmol/L [facility] Carbon Dioxide 24 22 - 29 mmol/L [facility] Anion Gap 13 12 - 20 [facility] Urea Nitrogen (BUN) 17(H) 9 - 16 mg/dL [facility] Creatinine, Serum 0.89 0.5 - 1.4 mg/dL [facility] Estimated Glomerular Filt Rate >60 [facility] Comment:Chronic Kidney Disea se: Estimated GFR < 60 mL/min/[id number] Kidney Disease: Estimated GFR < 15 mL/min/1.73m2 Glucose 255(H) 60 - 115 mg/dL [facility] Calcium 9.0 8.4 - 10.2 mg/dL [facility] Bilirubin, Total 0.4 0.0 - 1.0 mg/dL [facility] Aspartate Amino Transferase 17 5 - 31 U/L [facility] Comment:Slight Hemolysis.Int erpret result with caution. Alanine Aminotransferase 27 0 - 31 U/L [facility] Total Protein 7.5 6.5 - 8.0 g/dL [facility] Albumin Level 3.9 3.5 - 5.0 g/dL [facility] Alkaline Phosphatase 104 39 - 117 U/L [facility] Blood Venous blood specimen / Unknown 09/18/2024 11:02 AM EST 09/18/2024 2:41 PM EST Princess Min MANNEQUIN MAKER LAB BLOOD ORDERABLES Final Res ult Performing Organization Address City/[facility]/ZIP Co de Phone Number [facility] [address] [place] [phone] * Influenza B (ID NOW Rapid Molecular) (09/15/2024 1:18 PM EST) Influenza B Negative Negative, Indeterminate [facility] Swab 09/15/2024 1:18 PM EST us Alvaro Rocha MD POINT OF CARE TEST ENTER/EDIT OR DERABLES Final Result Performing Organization Address City/[facility]/ZIP Co de Phone Number [facility] [address] [place] [address] [phone] * Influenza A (ID NOW Rapid Molecular) (09/15/2024 1:18 PM EST) [facility] Influenza A Negative Negative, Indeterminate [facility] Swab 09/15/2024 1:18 PM EST us John Name POINT OF CARE TEST ENTER/EDIT OR DERABLES Final Result Performing Organization Address [facility]/ZIP Co de Phone Number [facility] [address] [place] [address] [phone] * POCT Rapid COVID Ag (09/15/2024 1:18 PM EST) [facility] Rapid COVID Ag Negative [facility] Swab 09/15/2024 1:18 PM EST us Alvaro Rocha MD POINT OF CARE TEST ENTER/EDIT OR DERABLES Final Result Performing Organization Address [facility] Co de Phone Number [facility] [address] [place] [address] [phone] * CBC (09/04/2024 11:40 AM EST) [facility] White Blood Count 5.8 4.8 - 10.8 X10*3/uL [facility] Red Blood Count 4.27 4.20 - 5.50 X10*6/uL [facility] Hemoglobin 13.1 12.0 - 16.0 g/dl [facility] Hematocrit 39.7 37.0 - 47.0 % [facility] Mean Corpuscular Volume 93.0 80.0 - 98.0 fL [facility] Mean Corpuscular Hemoglobin 30.7 27.0 - 33.0 pg [facility] Mean Corpuscular HGB Conc 33.0 31.0 - 35.0 g/dl [facility] Red Cell Distribution Width 13.2 11.0 - 16.0 % [facility] Platelet Count 182 160 - 400 X10*3/uL [facility] Mean Platelet Volume 10.3 9.4 - 12.3 fL [facility] NRBC Pct Auto 0.0 0.0 - 0.2 /100WBC [facility] NRBC Abs Auto 0.000 0.0 - 0.012 X10*3/uL [facility] 09/04/2024 11:4 0 AM EST 09/04/2024 11:40 AM EST us Generic External Data Provider LAB BLOOD ORDERAB LES Final Result Performing Organization Address [facility] Co de Phone Number [facility] [address] [place] [phone] * (ABNORMAL) Hemoglobin A1c (09/04/2024 11:40 AM EST) Hemoglobin A1c 6.4(H) <6.0 % [facility] Comment:Hemoglobin A1C Refer ence Range Adults: 4.8 - 6.0 % Non diabetic: < 6.0 % Goal: < 7.0 %Additional Action Suggested: > 8.0 %Note: Hemoglobin A1c results are invalid for patients with abnormal amounts of HbF. Blood transfusions may impact the HbA1c concentration in the patient sample. Estimated Average Glucose 137 mg/dL [facility] Comment:eAG = Estimated ave rage glucose which is %A1C expressed asaverage glucose, using the formula of the W4G-JxghgqeVqnarpp Glucose study (ADAG), Diabetes Care, Vol.31,#8,Feb. 2007 09/04/2024 11:4 0 AM EST 09/04/2024 11:40 AM EST us Generic External Data Provider LAB BLOOD ORDERAB LES Final Result Performing Organization Address [facility] Co de Phone Number [facility] [address] [place] [phone] * (ABNORMAL) Basic Metabolic Panel (09/04/2024 11:40 AM EST) Sodium 142 135 - 145 mmol/L [facility] Potassium 3.9 3.3 - 5.1 mmol/L [facility] Comment:Slight Hemolysis.Int erpret result with caution. Chloride 111(H) 96 - 108 mmol/L [facility] Carbon Dioxide 25 22 - 29 mmol/L [facility] Anion Gap 10(L) 12 - 20 [facility] Urea Nitrogen (BUN) 10 9 - 16 mg/dL [facility] Creatinine, Serum 0.79 0.5 - 1.4 mg/dL [facility] Creatinine Clr Calc Pharmacy 82.5 [facility] Comment:Provided height and weight: 154.94 cm,102.965 kg.eGFR (calculated from the MDRD study equation) and eCrCl(calculated from the Cockcroft-Gault equation) are based ondifferent parameters and may not yield comparable results.If eCrCl result is absurd, please check patient'sheight/weight. Estimated Glomerular Filt Rate >60 [facility] Comment:Chronic Kidney Disea se: Estimated GFR < 60 mL/min/1.72k7Bkyqfx Kidney Disease: Estimated GFR < 15 mL/min/1.73m2 Glucose 67 60 - 115 mg/dL [facility] Calcium 8.8 8.4 - 10.2 mg/dL [facility] 09/04/2024 11:4 0 AM EST 09/04/2024 11:40 AM EST us Generic External Data Provider LAB BLOOD ORDERAB LES Final Result [facility] [address] [place] [phone] * (ABNORMAL) MRSA Nasal Screen (09/04/2024 10:15 AM EST) Pathologist [facility] MRSA Nasal PCR NEGATIVE Negative [facility] SA Nasal PCR POSITIVE(A) Negative [facility] MRSA Interpretation SEE NOTE [facility] Comment:MRSA target DNA not detected; SA target DNA detected.A MRSA NEGATIVE, SA POSITIVE test result does not precludeMRSA nasal colonization. 09/04/2024 10:1 5 AM EST 09/04/2024 11:20 AM EST us Generic External Data Provider LAB MICROBIOLOGY - GENERAL ORDERABLES Final Result [facility] [address] [facility] [place] [address] [phone] * BI Mammogram Screening Tomosynthesis Bilateral (02/09/2023 11:07 AM EDT) Anatomical Region Laterality Modality Breast Bilateral Mammography 02/09/2023 11:0 7 AM EDT Narrative 03/05/2023 6:25 AM EDT ? [facility] ? [address] ?[place] [address] ? Mammography Report ? Signed ? Patient: Jose Oliver,Argelia ?MR#: [id number] ?? [id number] ? : 1965 ?Acct:[id number] ? Age/Sex: 57 / F ?ADM Date: 02/09/ ? Loc: HO.MAMMO ? Attending Dr: Princess Min MANNEQUIN MAKER ? Ordering Physician: Mechelle,Princess MANNEQUIN MAKER ?Results: ? Date of Service: 02/09/ ?Follow Up: ? Procedure(s): MM tomosynthesis screening BI ?? Accession Number(s): [id number] ? cc: Princess Min MANNEQUIN MAKER ? EXAMINATION: ?? MM SCREENING DIGITAL BREAST [...] 03/05/23622 ? DD/ 06 ? TD/TT: ? Can Vacuum Tester: ? Procedure Note Tracey, Sherin - 03/05/2023 [facility] [address] [place] [address] Dr. Aguilar, [place] [address] Mammography Report Signed Patient: Nini Messina#: [id number] : 1965Acct:[id number] Age/Sex: 57 / FADM Date: 02/09/23 Loc: HO.MAMMO Attending Dr: Princess Min MANNEQUIN MAKER Ordering Physician: Princess MinPResults: Date of Service: 02/09/23Follow Up: Procedure(s): MM tomosynthesis screening BI Accession Number(s): [id number] cc: Princess Min EXAMINATION: MM SCREENING DIGITAL BREAST TOMOSYNTHESIS, BILATERAL [...] in OV> 03/05/23 0623 DD/ 1107 TD/TT: Can Vacuum Tester: Princess VALENZUELA IMG BI PROCEDURES Final Result * Hm Colonoscopy (05/24/2017) Colonoscopy Normal Normal Historical Provider HEALTH MAINTENANCE Final Result from Last 3 Months or Most Recently Relevant to Health Maintenance Insurance [facility] MEDICAID STAND ADULT Care Teams Airplane Patroller Relationship Specialty Start Date End Date Princess Min FNP [address] [place] [address] PCP - General Family Medicine 02/10/24
--- OUTSIDE RECORDS SUMMARY | 2024-10-18 11:47 | XMS_ITS | Encounter Summary ---
Author Organization [employer] Address [address] [facility] 7t [place] [address] Care Team Providers Care Chief Of Safety And Protection Name Role Phone Princess Min Primary Care Provider [phone] Reason for Visit * Reason Onset Date Comments Med Refill 07/13/2024 Encounter Details Date Type Department Care Team (Late st Contact Info) Description 07/13/2024 Telephone [facility] MEDICINE [address] [place] [address] Princess Min FNP [address] [place], [place] [phone] Med Refill Social History Tobacco Use Types [...] 7:46 PM EST She is not on SALES REPRESENTATIVE TRAINEE, would need appt to discuss pain control. [...] for the pain. Please contact pt at [phone]. documented in this encounter Plan of Treatment Not on file documented as of this encounter Visit Diagnoses Not on filedocumented in this encounter Additional Health Concerns Assessment Noted Time PHQ-9 Depression Total Score: 3 03/03/20 24 11:33 AM EDT documented as of this encounter Care Teams Chief Of Safety And Protection Relationship Specialty Start Date End Date Princess Min FNP [address] [place] [address] PCP - General Family Medicine 02/10/24 documented as of this encounter
--- OUTSIDE RECORDS SUMMARY | 2024-10-18 11:47 | XMS_ITS | Encounter Summary ---
Author Organization [employer] Address [address] [facility] 7t [place] [address] Care Team Providers Care Ventilated Rib Fitter Name Role Phone Princess Min Primary Care Provider [phone] Princess Min Primary Care Provider [phone] Princess Min Primary Care Provider [phone] Reason for Visit * Reason Comments Med Refill Encounter Details Date Type Department Care Team ([facility] st Contact Info) Description 08/11/2022 Refill [facility] MEDICINE [address] [place], [place] [phone] Princess Min FNP [address] [place], [place] [phone] Cervical spondylosis Social History Tobacco Use Types [...] myelopathy documented in this encounter Care Teams Ventilated Rib Fitter Relationship Specialty Start Date End Date Princess Min FNP [address] [place], [place] [phone] PCP - General Family Medicine 03/20/22 12/26/23 Princess Min FNP [address] [place] [address] PCP - General Family Medicine 01/21/24 02/03/24 Princess Min FNP [address] [place] [address] PCP - General Family Medicine 02/10/24 documented as of this encounter
--- OUTSIDE RECORDS SUMMARY | 2024-10-18 11:47 | XMS_ITS | Encounter Summary ---
Author Organization [employer] Address [address] [facility] 7t [place] [address] Care Team Providers Care Manager Functional Name Role Phone Princess Min Primary Care Provider [phone] Princess Min Primary Care Provider [phone] Princess Min Primary Care Provider [phone] Reason for Visit * Reason Comments Med Refill Encounter Details Date Type Department Care Team ([facility] st Contact Info) Description 06/14/2023 Refill [facility] MEDICINE [address] [place] [address] Princess Min FNP [address] [place], [place] [phone] Social History Tobacco Use Types Packs/Day Years [...] as of this encounter Care Teams Manager Functional Relationship Specialty Start Date End Date Princess Min FNP [address] [place] [address] PCP - General Family Medicine 03/20/22 12/26/23 Princess Min FNP [address] [place] [address] PCP - General Family Medicine 01/21/24 02/03/24 Princess Min FNP [address] [place] [address] PCP - General Family Medicine 02/10/24 documented as of this encounter
--- OUTSIDE RECORDS SUMMARY | 2024-10-18 11:47 | XMS_ITS | Encounter Summary ---
Author Organization [employer] Address [address] [facility] 7t [place] [address] Care Team Providers Care Hand Shaker Name Role Phone Princess Min Primary Care Provider [phone] Reason for Visit * Reason Onset Date Comments Med Refill 02/11/2024 Encounter Details Date Type Department Care Team (Late st Contact Info) Description 02/11/2024 Telephone [facility] MEDICINE [address] [place] [address] Princess Min FNP [address] [place], [place] [phone] Med Refill Social History Tobacco Use Types [...] 1:02 PM EDT Medication was sent to [facility] on 11/29/23 with 3 refills. * Telephone Encounter - Drake Levy - 02/11/2024 11:57 AM EDT TC from pt requesting medication refill. Medications needing refill : Asmanex HFA 200 MCG/ACT aerosol To be sent to: [facility] - [place], [place] - [address] [facility] documented in this encounter Plan of Treatment Not on file documented as of this encounter Visit Diagnoses Not on filedocumented in this encounter Additional Health Concerns Assessment Noted Time PHQ-9 Depression Total Score: 10 023 10:39 AM EDT documented as of this encounter Care Teams Hand Shaker Relationship Specialty Start Date End Date Princess Min FNP [address] [place] [address] PCP - General Family Medicine 02/10/24 documented as of this encounter
--- OUTSIDE RECORDS SUMMARY | 2024-10-18 11:47 | XMS_ITS | Encounter Summary ---
Author Organization [employer] Address [address] [facility] 7t [place] [address] Care Team Providers Care It Support Technician Name Role Phone Princess Min Primary Care Provider [phone] Princess Min Primary Care Provider [phone] Princess Min Primary Care Provider [phone] Reason for Visit * Reason Onset Date Comments PT1 04/27/2023 Encounter Details Date Type Department Care Team (Late st Contact Info) Description 04/27/2023 Telephone [facility] MEDICINE [address] [place] [address] Princess Min FNP [address] [place], [place] [phone] PT1 Social History Tobacco Use Types Packs/Day [...] Certification of Serious Illness is ready for poultry picker at medical records. * Telephone Encounter - Barbie Montanez - 04/28/2023 3:58 PM EDT PT-1 submitted for patient. They will receive a letter of approval or denial in the mail. * Telephone Encounter - Velia Berry - 04/27/2023 4:43 PM EDT Tc form pt requesting PT1 Date: 05/06/23 Time: 10 AM address: [address] [place] [phone] specialty: Psychologist # visits: n/a window trimmer: no Wheelchair: no documented in this encounter Plan of Treatment Not on file documented as of this encounter Visit Diagnoses Not on filedocumented in this encounter Additional Health Concerns Assessment Noted Time PHQ-9 Depression Total Score: 10 023 10:39 AM EDT documented as of this encounter Care Teams It Support Technician Relationship Specialty Start Date End Date Princess Min FNP [address] [place] [address] PCP - General Family Medicine 03/20/22 12/26/23 Princess Min FNP [address] [place] [address] PCP - General Family Medicine 01/21/24 02/03/24 Princess Min FNP [address] [place] [address] PCP - General Family Medicine 02/10/24 documented as of this encounter
--- OUTSIDE RECORDS SUMMARY | 2024-10-18 11:47 | XMS_ITS | Encounter Summary ---
Author Organization [employer] Address [address] [facility] 7t [place] [address] Care Team Providers Care Commissioner Of Relocation Services Name Role Phone Princess Min QUANTITATIVE ANALYST DEVELOPER Primary Care Provider [phone] Encounter Details Date Type Department Care Team [...] (09/21/2024 10:15 AM EST) Blood Type OP [facility] Antibody Screen NEGATIVE [facility] 09/21/2024 10:1 5 AM EST 09/21/2024 10:33 AM EST Narrative [facility] - 09/21/2024 11:18 AM EST WITNESSED BY TADNURSING:Call Blood Bank (ext. [phone]) to band patient on admission.Type and Screen in effect until 2300 on [id number] expiration changed by SRI on 09/21/24Reason: PAT SPEC us Generic External Data Provider LAB BLOOD BANK TE ST ORDERABLES Final Result [facility] [address] [place] [address] [phone] documented in this encounter Visit Diagnoses Not on filedocumented in this encounter Additional Health Concerns Assessment Noted Time PHQ-9 Depression Total Score: 3 03/03/20 24 11:33 AM EDT documented as of this encounter Care Teams Commissioner Of Relocation Services Relationship Specialty Start Date End Date Princess Min FNP [address] [place] [address] PCP - General Family Medicine 02/10/24 documented as of this encounter
--- OUTSIDE RECORDS SUMMARY | 2024-10-18 11:47 | XMS_ITS | Encounter Summary ---
Author Organization [employer] Address [address] [facility] 7t [place] [address] Care Team Providers Care Vacuum Worker Name Role Phone Princess Min Primary Care Provider [phone] Princess Min Primary Care Provider [phone] Reason for Visit * Reason Comments Med Change Request Encounter Details Date Type Department Care Team ([facility] Contact Info) Description 12/30/2023 Refill [facility] MED & PEDS [address] [place], [place] [phone] Princess Min FNP [address] [place], [place] [phone] Social History Tobacco Use Types Packs/Day Years [...] documented as of this encounter Care Teams Vacuum Worker Relationship Specialty Start Date End Date Princess Min FNP [address] [place] [address] PCP - General Family Medicine 01/21/24 02/03/24 Princess Min FNP [address] [place] [address] PCP - General Family Medicine 02/10/24 documented as of this encounter
--- OUTSIDE RECORDS SUMMARY | 2024-10-18 11:47 | XMS_ITS | Encounter Summary ---
Author Organization [employer] Address [address] [facility] [address] 7t [place] [address] Care Team Providers Care Registration Rep Name Role Phone Princess Min Primary Care Provider [phone] Princess Min Primary Care Provider [phone] Encounter Details Date Type Department Care Team (Late st Contact Info) Description 12/28/2023 Telephone [facility] MEDICINE [address] [place] [address] Princess Min FNP [address] [place], [place] [phone] Social History Tobacco Use Types Packs/Day Years [...] documented as of this encounter Care Teams Registration Rep Relationship Specialty Start Date End Date Princess Min FNP [address] [place] [address] PCP - General Family Medicine 01/21/24 02/03/24 Princess Min FNP [address] [place] [address] PCP - General Family Medicine 02/10/24 documented as of this encounter
--- OUTSIDE RECORDS SUMMARY | 2024-10-18 11:47 | XMS_ITS | Encounter Summary ---
Author Organization [email or web address] Address [address] [facility] 7t [place] [address] Care Team Providers Care Maintenance Department Manager Name Role Phone Princess Min Primary Care Provider [phone] Princess Min Primary Care Provider [phone] Reason for Visit * Reason Comments Med Change Request Encounter Details Date Type Department Care Team ([facility] Contact Info) Description 12/28/2023 Refill [facility] CHC MED & PEDS [address] [place], [place] [phone] Princess Min FNP [address] [place], [place] [phone] Social History Tobacco Use Types Packs/Day Years [...] documented as of this encounter Care Teams Maintenance Department Manager Relationship Specialty Start Date End Date Princess Min FNP [address] [place] [address] PCP - General Family Medicine 01/21/24 02/03/24 Princess Min FNP [address] [place] [address] PCP - General Family Medicine 02/10/24 documented as of this encounter
--- OUTSIDE RECORDS SUMMARY | 2024-10-18 11:47 | XMS_ITS | Encounter Summary ---
Author Organization [employer] Address [address] [facility] 7t [place] [address] Care Team Providers Care Cut Off Tender Glass Name Role Phone Princess Min Primary Care Provider [phone] Reason for Visit * Reason Comments Med Refill Encounter Details Date Type Department Care Team ([facility] st Contact Info) Description 07/17/2024 Refill [facility] CHC MED & PEDS [address] [place], [place] [phone] Princess Min FNP [address] [place], [place] [phone] Acute otitis externa of left ear, unspecified [...] documented as of this encounter Care Teams Cut Off Tender Glass Relationship Specialty Start Date End Date Princess Min FNP [address] [place] [address] PCP - General Family Medicine 02/10/24 documented as of this encounter
--- OUTSIDE RECORDS SUMMARY | 2024-10-18 11:47 | XMS_ITS | Encounter Summary ---
Author Organization [employer] Address [address] [facility] 7t [place] [address] Care Team Providers Care It Network Administrator Name Role Phone Princess Min Primary Care Provider [phone] Princess Min Primary Care Provider [phone] Princess Min Primary Care Provider [phone] Reason for Visit * Reason Comments Med Refill Encounter Details Date Type Department Care Team (Late st Contact Info) Description 08/07/2022 Refill [facility] MEDICINE [address] [place], [place] [phone] Princess Min FNP [address] [place], [place] [phone] Cervical spondylosis Social History Tobacco Use Types [...] myelopathy documented in this encounter Care Teams It Network Administrator Relationship Specialty Start Date End Date Princess Min FNP [address] [place], [place] [phone] PCP - General Family Medicine 03/20/22 12/26/23 Princess Min FNP [address] [place] [address] PCP - General Family Medicine 01/21/24 02/03/24 Princess Min FNP [address] [place] [address] PCP - General Family Medicine 02/10/24 documented as of this encounter
--- OUTSIDE RECORDS SUMMARY | 2024-10-18 11:47 | XMS_ITS | Encounter Summary ---
Author Organization [employer] Address [address] [facility] 7t [place] [address] Care Team Providers Care Baggageman Name Role Phone Princess Min Primary Care Provider [phone] Princess Min Primary Care Provider [phone] Princess Min Primary Care Provider [phone] Reason for Visit * Reason Onset Date Comments Appointment Request 08/03/2022 Encounter Details Date Type Department Care Team (Late st Contact Info) Description 08/03/2022 Telephone [facility] MEDICINE [address] [place] [address] Princess Min FNP [address] [place], [place] [phone] Appointment Request Social History Tobacco Use Types [...] 12:26 PM EST Returned pt call via P/I#[id number], pt cancelled todays FORWARDER OPERATOR RV appt scheduled 11am. Pt previously cancelled 07/16/22 FORWARDER OPERATOR RV appt. Attempted to reschedule appt, offered 3 alternate times. 08/04/22, pt stated she will be in [place] for her sisters and back by 5pm. Offered her a time on 08/05/22, pt stated she doesn't know when she will be back. Offered her an appt today, 1 hour from now, beforeshe leaves for [place]. She said she will be long on her way to [place]. Reminded pt that she must attend these appointments to continue to receive her oxycodone script and that per her FORWARDER OPERATOR agreement she must come in within 24 hours for a random urine. Pt stated she will call back when she is available to reschedule. Will FYI PCP. * Telephone Encounter - Jareth Cifuentes - 08/03/2022 11:54 AM EST Tc from pt requesting to r/s appt 08/03/22 ( FORWARDER OPERATOR RV) pt states not able to come due to a lost in the family. Please contact pt at [phone] documented in this encounter Plan of Treatment Not on file documented as of this encounter Visit Diagnoses Not on filedocumented in this encounter Care Teams Baggageman Relationship Specialty Start Date End Date Princess Min FNP [address] [place] [address] PCP - General Family Medicine 03/20/22 12/26/23 Princess Min FNP [address] [place] [address] PCP - General Family Medicine 01/21/24 02/03/24 Princess Min FNP [address] [place] [address] PCP - General Family Medicine 02/10/24 documented as of this encounter
--- OUTSIDE RECORDS SUMMARY | 2024-10-18 11:47 | XMS_ITS | Encounter Summary ---
Author Organization [employer] Address [address] [facility] 7t [place] [address] Care Team Providers Care Running Instructor Name Role Phone Princess Min INTERNET MARKETING ASSISTANT Primary Care Provider [phone] Encounter Details Date Type Department Care Team (Late st Contact Info) Description 09/27/2024 Orders Only GENERIC EXTERNAL DATA DEPARTMENT [...] Procedure Name Priority Date/Time Associated Diagnosis Comments HEMOGLOBIN + HEMATOCRIT Routine 09/27/2024 7:38 AM EST GLUCOSE, WHOLE BLOOD Routine 09/27/2024 7:35 AM EST documented in this encounter Results * Hemoglobin and Hematocrit (09/27/2024 7:38 AM EST) Hemoglobin 13.1 12.0 - 16.0 g/dl [facility] Hematocrit 38.4 37.0 - 47.0 % [facility] 09/27/2024 7:38 AM EST 09/27/2024 7:48 AM EST us Generic External Data Provider LAB BLOOD ORDERAB LES Final Result [facility] [address] [place] [phone] * (ABNORMAL) Glucose, Whole Blood (09/27/2024 7:35 AM EST) Glucose, Whole Blood 318(H) 60 - 115 mg/dL [facility] Comment:METER #: [id number] 09/27/2024 7:35 AM EST 09/27/2024 7:55 AM EST us Generic External Data Provider LAB BLOOD ORDERAB LES Final Result [facility] [address] [place] [address] [phone] documented in this encounter Visit Diagnoses Not on filedocumented in this encounter Additional Health Concerns Assessment Noted Time PHQ-9 Depression Total Score: 3 03/03/20 24 11:33 AM EDT documented as of this encounter Care Teams Running Instructor Relationship Specialty Start Date End Date Princess Min FNP [address] [place] [address] PCP - General Family Medicine 02/10/24 documented as of this encounter
--- OUTSIDE RECORDS SUMMARY | 2024-10-18 11:47 | XMS_ITS ---
Author Organization [facility] Address [address] [place] [address] Care Team Providers Care Cow Rider Name Role Phone CHARLES LARIOS, OMERO Primary Care Provider Naun Silva Jr, Aidan Otero REASON FOR VISIT screening colonoscopy Encounters Encounter Location Date Provider Diagnosis [facility] [address] [place] [address] [place] [address] 06/26/2024 Aidan Silva Jr Plan Of Treatment No Information Progress Notes * OREN CABALLEROLDOB:1965 (59 yo F)Acc No.[id number]:06/26/2024 Progress Notes Patient:?NIELS CABALLERO Provider:?Aidan Silva MD :1965???Age:58 Y???Sex:Female D ate:06/26/2024 Address:[address], [place] [facility] Pcp:OMERO SOTO MD Subjective: * Chief Complaints: * ???1. Screening colonoscopy. * Medical History:? Objective: * Vitals:? Assessment: Plan: * Treatment: * * The named appointment provid er may or may not be the originator of this progress note, and it is not deemed complete until electronically signed by the appointment provider. Sign off status: Pending * Provider:?Aidan Silva MD Date:?1 08/27/2023 Generated for Santosh zhao/Miles/eTkenyasmitting on:?10/18/2024 11:47 AM EDT
--- OUTSIDE RECORDS SUMMARY | 2024-10-18 11:47 | XMS_ITS | Encounter Summary ---
Author Organization [employer] Address [address] [facility] 7t [place] [address] Care Team Providers Care Associate Research Scientist Name Role Phone Princess Min Primary Care Provider [phone] Reason for Visit * Reason Onset Date Comments FYI 07/13/2024 Encounter Details Date Type Department Care Team ([facility] st Contact Info) Description 07/13/2024 Telephone [facility] MEDICINE [address] [place] [address] Princess Min FNP [address] [place], [place] [phone] FYI Social History Tobacco Use Types Packs/Day [...] documented as of this encounter Care Teams Associate Research Scientist Relationship Specialty Start Date End Date Princess Min FNP [address] [place] [address] PCP - General Family Medicine 02/10/24 documented as of this encounter
--- OUTSIDE RECORDS SUMMARY | 2024-10-18 11:47 | XMS_ITS | Encounter Summary ---
Author Organization [employer] Address [address] [facility] 7t [place] [address] Care Team Providers Care Tunnel Kiln Operator Name Role Phone Princess Min Primary Care Provider [phone] Princess Min Primary Care Provider [phone] Princess Min Primary Care Provider [phone] Reason for Visit * Reason Onset Date Comments Durable Medical Equipment 10/27/2022 Encounter Details Date Type Department Care Team (Late st Contact Info) Description 10/27/2022 Telephone [facility] MEDICINE [address] [place] [address] Princess Min FNP [address] [place], [place] [phone] Durable Medical Equipment Social History Tobacco Use [...] shower head, script to be send to [facility]. documented in this encounter Plan of Treatment Not on file documented as of this encounter Visit Diagnoses Not on filedocumented in this encounter Care Teams Tunnel Kiln Operator Relationship Specialty Start Date End Date Princess Min FNP [address] [place] [address] PCP - General Family Medicine 03/20/22 12/26/23 Princess Min FNP [address] [place] [address] PCP - General Family Medicine 01/21/24 02/03/24 Princess Min FNP [address] [place] [address] PCP - General Family Medicine 02/10/24 documented as of this encounter
--- OUTSIDE RECORDS SUMMARY | 2024-10-18 11:47 | XMS_ITS ---
Author Organization [facility] Address [address] [place] [address] Care Team Providers Care Casket Assembler Name Role Phone CHARLES LARIOS, MOERO Primary Care Provider Naun Silva Jr, Aidan Otero REASON FOR VISIT conf appt Encounters Encounter Location Date Provider Diagnosis [facility] [address] [place] [address] 06/21/2024 Aidan Silva Jr Plan Of Treatment No Information Progress Notes * MADAY CABALLEROOB:1965 (58 yo F)Acc No.[id number]:06/21/2024 Patient:?NIELS CABALLERO :1965???Age:58 Y???Sex:Female Address:[address], [place], [address] * true * Date:? Generated for Santosh zhao/Miles/eTransmitting on:?10/18/2024 11:46 AM EDT
--- OUTSIDE RECORDS SUMMARY | 2024-10-18 11:47 | XMS_ITS | Encounter Summary ---
Author Organization [employer] Address [address] [facility] 7t [place] [address] Care Team Providers Care Quality Control Lab Tech Name Role Phone Princess Min Primary Care Provider [phone] Reason for Visit * Reason Onset Date Comments Pre op 06/12/2024 Encounter Details Date Type Department Care Team (Late st Contact Info) Description 06/12/2024 Telephone [facility] MEDICINE [address] [place] [address] Princess Min FNP [address] [place], [place] [phone] Pre op Social History Tobacco Use Types [...] Yes Surgeon's name: Dr Laureano Facility name: [facility] Surgeon's office number: [phone] Surgeon's office fax number: [phone] Contact name (person you spoke with): Stephanie [...] as of this encounter Care Teams Quality Control Lab Tech Relationship Specialty Start Date End Date Princess Min FNP [address] [place] [address] PCP - General Family Medicine 02/10/24 documented as of this encounter
--- OUTSIDE RECORDS SUMMARY | 2024-10-18 11:47 | XMS_ITS | Encounter Summary ---
Author Organization [employer] Address [address] [facility] [address] 7t [place] [address] Care Team Providers Care Reeling Machine Setup Operator Name Role Phone Princess Min Primary Care Provider [phone] Princess Min Primary Care Provider [phone] Reason for Visit * Reason Onset Date Comments PT1 02/03/2024 Encounter Details Date Type Department Care Team ([facility] st Contact Info) Description 02/03/2024 Telephone [facility] MEDICINE [address] [place] [address] Princess Min FNP [address] [place], [place] [phone] PT1 Social History Tobacco Use Types Packs/Day [...] Y/N: Yes Provider name or facility name: [facility] Facility Address: [address] [place] [address] Escort needed: Y/N: No Do you have [...] documented as of this encounter Care Teams Reeling Machine Setup Operator Relationship Specialty Start Date End Date Princess Min FNP [address] [place] [address] PCP - General Family Medicine 01/21/24 02/03/24 Princess Min FNP [address] [place] [address] PCP - General Family Medicine 02/10/24 documented as of this encounter
--- OUTSIDE RECORDS SUMMARY | 2024-10-18 11:47 | XMS_ITS | Encounter Summary ---
Author Organization [employer] Address [address] [facility] 7t [place] [address] Care Team Providers Care Wireless Development Manager Name Role Phone Princess Min Primary Care Provider [phone] Princess Min Primary Care Provider [phone] Reason for Visit * Reason Comments Med Refill Encounter Details Date Type Department Care Team ([facility] st Contact Info) Description 01/02/2024 Refill [facility] MEDICINE [address] [place] [address] Princess Min FNP [address] [place], [place] [phone] Social History Tobacco Use Types Packs/Day Years [...] documented as of this encounter Care Teams Wireless Development Manager Relationship Specialty Start Date End Date Princess Min FNP [address] [place] [address] PCP - General Family Medicine 01/21/24 02/03/24 Princess Min FNP [address] [place] [address] PCP - General Family Medicine 02/10/24 documented as of this encounter
--- OUTSIDE RECORDS SUMMARY | 2024-10-18 11:48 | XMS_ITS | Encounter Summary ---
Author Organization [employer] Address [address] [facility] 7t [place] [address] Care Team Providers Care Public Health Staff Nurse Name Role Phone Princess Min [facility] Primary Care Provider [phone] Reason for Visit * Reason Comments Pre-op Exam Encounter Details Date Type Department Care Team ([facility] st Contact Info) Description 09/20/2024 9:00 AM EST Office Visit [facility] MED & PEDS [address] [place], [place] [phone] [facility] [address] [place] [address] Chronic pain of left knee (Primary Dx); Preop examination; Type 2 diabetes mellitus without complication, with long-term current use of insulin ([facility]); Essential hypertension; Mild persistent asthma without complication [...] documented in this encounter Progress Notes * [facility], MOLDED GOODS INSPECTOR TRIMMER - 09/20/2024 9:00 AM EST Argelia Oliver is a 59 y.o. year old female patient with type 2 diabetes, hypertension, HFpEF, hypothyroid, asthma who presents for preop evaluation prior to the following procedure: Date of Surgery: 09/27/24 Surgical procedure being done: Left knee total revision Type of anesthesia: general anesthesia Lab needed: Yes including A1c EKG: Yes Surgeon's name: Dr Laureano Facility name: [facility] Surgeon's office number: [phone] Surgeon's office fax number: [phone] Contact name (person you spoke with): Stephanie [...] of anesthesia reaction: NO Chronic Medical Conditions: S5FL--VK elevated in office; currently on prednisone--typically well [...] complication, with long-term current use of insulin ([facility]) POCT A1C POCT glucose manually resulted 4. [...] complication, with long-term current use of insulin ([facility]) POCT GLUCOSE Routine 09/20/2024 9:02 AM EST Type 2 diabetes mellitus without complication, with long-term current use of insulin ([facility]) documented in this encounter Results * ECG 12 lead (09/20/2024 4:21 PM EST) Carri Cope FNP - 09/20/2024 4:21 PM EST NSR Carri VALENZUELA ECG ORDERABLES Final Result * (ABNORMAL) Prothrombin Time-INR (09/20/2024 9:54 AM EST) Prothrombin Time 10.3(L) 10.9 - 12.4 SEC [facility] INTERNATIONAL NORM RATIO 0.9 0.9 - 1.1 [facility] Comment:INTERNATIONAL NORMAL IZED RATIO (INR) [...] 9:54 AM EST 09/20/2024 2:18 PM EST [facility] LAB BLOOD ORDERABLES Final Re sult [facility] [address] [place] [phone] [phone] * (ABNORMAL) POCT A1C (09/20/2024 9:03 AM EST) Hemoglobin A1C 7.9(A) 4.0 - 6.0 % QC Media Lot # Comment:[id number] Lot# Expiration Date Comment:05/12/2026 Blood 09/20/2024 9:03 AM EST Result [facility] POINT OF CARE TEST ENTER/EDIT ORDERABLES Final Result * (ABNORMAL) POCT glucose manually resulted (09/20/2024 9:02 AM EST) Glucose Blood, POC 256(A) 60 - 200 mg/dL QC Media Lot # Comment:[id number] Lot# Expiration Date Comment:01/25/2025 Blood Capillary blood specimen / Unknown 09/20/2024 9:02 AM EST Result [facility] POINT OF CARE TEST ENTER/EDIT ORDERABLES Final Result documented in this encounter Visit Diagnoses Diagnosis Chronic pain of left knee- Primary Preop examination Unspecified pre-operative examination Type 2 diabetes mellitus without complication, with long-term current use of insulin ([facility]) Essential hypertension Unspecified essential hypertension Mild persistent asthma without complication documented in this encounter Additional Health Concerns Assessment Noted Time PHQ-9 Depression Total Score: 3 03/03/20 24 11:33 AM EDT documented as of this encounter Care Teams Public Health Staff Nurse Relationship Specialty Start Date End Date Princess Min FNP [address] [place] [address] PCP - General Family Medicine 02/10/24 documented as of this encounter
--- OUTSIDE RECORDS SUMMARY | 2024-10-18 11:48 | XMS_ITS | Encounter Summary ---
Author Organization [employer] Address [address] [facility] [address] 7[address] [place] [address] Care Team Providers Care Retail Management Trainee Name Role Phone Princess Min REAL ESTATE LEGAL ASSISTANT Primary Care Provider [phone] Encounter Details Date Type Department Care Team [...] documented as of this encounter Care Teams Retail Management Trainee Relationship Specialty Start Date End Date Princess Min FNP [address] [place] [address] PCP - General Family Medicine 02/10/24 documented as of this encounter
--- OUTSIDE RECORDS SUMMARY | 2024-10-18 11:48 | XMS_ITS | Encounter Summary ---
Author Organization [employer] Address [address] [facility] [address] 7t [place] [address] Care Team Providers Care Aix Administrator Name Role Phone Princess Min COTTON WRINGER Primary Care Provider [phone] Encounter Details Date Type Department Care Team [...] documented as of this encounter Care Teams Aix Administrator Relationship Specialty Start Date End Date Princess Min FNP [address] [place] [address] PCP - General Family Medicine 02/10/24 documented as of this encounter
--- OUTSIDE RECORDS SUMMARY | 2024-10-18 11:48 | XMS_ITS | Encounter Summary ---
Author Organization [employer] Address [address] [facility] 7t [place] [address] Care Team Providers Care Diplomatic Courier Name Role Phone Princess Min [employer] Primary Care Provider Reason for Visit * Reason Onset Date Comments Durable Medical Equipment 09/18/2024 Encounter Details Date Type Department Care Team (Late st Contact Info) Description 09/18/2024 Telephone [facility] MED & PEDS [address] [place], [place] [phone] Princess Min FNP [address] [place] [address] Durable Medical Equipment Social History Tobacco Use [...] documented as of this encounter Care Teams Diplomatic Courier Relationship Specialty Start Date End Date Princess Min FNP [address] [place] [address] PCP - General Family Medicine 02/10/24 documented as of this encounter
--- OUTSIDE RECORDS SUMMARY | 2024-10-18 11:48 | XMS_ITS | Encounter Summary ---
Author Organization [employer] Address [address] [facility] 7t [place] [address] Care Team Providers Care Miller Rod Mill Name Role Phone Princess Min Primary Care Provider [phone] Reason for Referral * Imaging (Routine) - Closed Specialty Diagnoses / Procedures Referred By Elaina melendez Referred To Contact Radiology Diagnoses Encounter for screening mammogram for malignant neoplasm of breast Procedures BI Mammogram Screening Tomosynthesis Bilateral Princess Min FNP [address] [place] [address] Phone: tel: fax: [address] Phone: tel: fax: Referral ID Status Reason Start Date Expiration Date Visits Re quested Visits Authorized [id number] Closed 09/18/2024 09/18/2025 1 1 Encounter Details Date Type Department Care Team (Late st Contact Info) Description 09/18/2024 10:15 AM EST Office Visit [facility] MED & PEDS [address] [place], [place] [phone] Princess Min FNP [address] [place], [place] [phone] Moderate persistent asthma without complication (Primary Dx); History of total knee arthroplasty, left; Encounter for screening mammogram for malignant neoplasm of breast; Healthcare maintenance; Routine health maintenance; Type 2 diabetes mellitus without complication, with long-term current use of insulin ([facility]) Social History Tobacco Use Types [...] this encounter Progress Notes * Princess Min, WELDER/INSTALLER - 09/18/2024 10:15 AM EST SUBJECTIVE Patient ID: Argelia Oliver is a 59 y.o. female w/ PMH hypertension, T2DM, hypothyroid, mod persistent asthma who presents to the office for follow up visit - chronic conditions. HPI: Last PCP visit: 05/26/24 Left knee pain: History of left TKA in May [address] [facility] [address] Laureano. Initial improvement following surgery [...] feels safe in current living situation. 1 coating machine operator that come to the house for assistance. [...] total knee arthroplasty, left Overview 06/09/23 at [facility] - Dr. Laureano Relevant Medications oxyCODONE (Roxicodone) [...] Routine Healthcare maintenance Expected: 09/18/2024, Expires: 09/18/2025 documented as of this encounter Procedures Procedure Name Priority Date/Time Associated Diagnosis Comments ALBUMIN, RANDOM URINE W/CREATININE Routine 09/18/2024 11:31 AM EST Healthcare maintenance HEPATITIS C VIRAL RNA, QUANTITATIVE, REAL-TIME PCR Routine 09/18/2024 11:22 AM EST Healthcare maintenance CBC WITH AUTO [...] 11:31 AM EST) Creatinine, Urine 65.49 mg/dL [facility] Microalbumin Urine 8.0 mg/L [facility] Microalbum Creatinine Ratio Ur 12.2 <30 ug/mg cr [facility] Comment:Albumin/Creatinine R atio Reference Ranges: Normal: < 30 ug/mg creatinine Microalbuminuria: 30 - 300 ug/mg creatinineClinical Albuminuria: > 300 ug/mg creatinine Urine 09/18/2024 11:3 1 AM EST 09/18/2024 2:41 PM EST us Princess Min WELDER/INSTALLER LAB URINE ORDERABLES Final Res ult [facility] [address] [place] [phone] * (ABNORMAL) CBC auto differential (09/18/2024 11:22 AM EST) White Blood Count 8.1 4.8 - 10.8 X10*3/uL [facility] Red Blood Count 4.26 4.20 - 5.50 X10*6/uL [facility] Hemoglobin 12.9 12.0 - 16.0 g/dl [facility] Hematocrit 37.8 37.0 - 47.0 % [facility] Mean Corpuscular Volume 88.7 80.0 - 98.0 fL [facility] Mean Corpuscular Hemoglobin 30.3 27.0 - 33.0 pg [facility] Mean Corpuscular HGB Conc 34.1 31.0 - 35.0 g/dl [facility] Red Cell Distribution Width 12.9 11.0 - 16.0 % [facility] Platelet Count 247 160 - 400 X10*3/uL [facility] Mean Platelet Volume 10.7 9.4 - 12.3 fL [facility] Neutrophils Percent Auto 67.4 45 - 73 % [facility] Imm Gran Pct Auto 1.7(H) 0.0 - 0.4 % [facility] Lymphocytes Percent Auto 24.5 20 - 40 % [facility] Monocytes Percent Auto 5.3 2 - 11 % [facility] Eosinophils Percent Auto 0.6 0 - 4 % [facility] Basophils Percent Auto 0.5 0 - 2 % [facility] NRBC Pct Auto 0.0 0.0 - 0.2 /100WBC [facility] Neutrophils Absolute Auto 5.5 2.0 - 8.3 x10*3/uL [facility] Imm Gran Abs Auto 0.14(H) 0.00 - 0.03 X10*3/uL [facility] Lymphocytes Absolute Auto 2.0 1.2 - 4.9 X10*3/uL [facility] Monocytes Absolute Auto 0.4 0.1 - 1.2 X10*3/uL [facility] Eosinophils Absolute Auto 0.1 0.0 - 0.4 X10*3/uL [facility] Basophils Absolute Auto 0.0 0.0 - 0.2 X10*3/uL [facility] NRBC Abs Auto 0.000 0.0 - 0.012 X10*3/uL [facility] Blood Venous blood specimen / Unknown 09/18/2024 11:22 AM EST 09/18/2024 2:41 PM EST us Princess Min WELDER/INSTALLER LAB BLOOD ORDERABLES Final Res ult [facility] [address] [place] [phone] * HIV-1/2 Antigen and Antibodies, Fourth Generation, with Reflexes (09/18/2024 11:22 AM EST) HIV AB/AG Nonreactive Nonreactive [facility] Comment:HIV-1 p24 Ag and/or HIV-1/HIV-2 Ab not detected.A test result that is nonreactive does not exclude thepossibility of exposure to or infection with HIV-1 and/orHIV-2. Nonreactive results in this assay for individualswith prior exposure to HIV-1 and/or HIV-2 may be due toantigen and antibody levels that are below the limit ofdetection of this assay.The [employer] HIV Ag/Ab Combo assay result andsupplemental assay results should be interpreted inconjunction with the patient's clinical presentation,history and other laboratory results. If the results areinconsistent with clinical evidence, additional testing issuggested to confirm the result. Blood Venous blood specimen / Unknown 09/18/2024 11:22 AM EST 09/18/2024 2:41 PM EST Princess Min [facility] BLOOD ORDERABLES Final Res ult Performing Organization Address [facility] Co de Phone Number [facility] [address] [place] [address] [phone] * RPR (Monitor) with Reflex to??Titer (09/18/2024 11:22 AM EST) RPR (Monitor) w/Refl Titer NON-REACTI VE NON-REACT MOOSE [facility] Comment:THIS TEST WAS PERFOR MED AT:[employer] [place] [phone] GARCIA MD Rapid Plasma Reagin Ab Titer TNP [facility] Blood Venous blood specimen / Unknown 09/18/2024 11:22 AM EST 09/18/2024 2:41 PM EST [facility] LAB BLOOD ORDERABLES Final Res ult Performing Organization Address [facility]/ZIP Co de Phone Number [facility] [address] [place] [phone] * Hepatitis C Viral RNA, Quantitative, Real-Time PCR (09/18/2024 11:22 AM EST) Hepatitis C Viral Load <15 NOT DETECTED NOT DETECTED IU/mL [facility] HCV Log PCR <1.18 NOT DETECTED NOT DETECTED Log IU/mL [facility] Comment:For additional infor gillian, please refer tohttp://education.[employer]/faq/BIE85l4(This link is being provided for informational/educational purposes only.)THIS TEST WAS PERFORMED AT:[employer] [place] [phone] GARCIA MD Blood 09/18/2024 11:2 2 AM EST 09/18/2024 2:41 PM EST us Princess Min WELDER/INSTALLER LAB BLOOD ORDERABLES Final Res ult [facility] [address] [place] [phone] * (ABNORMAL) Comprehensive Metabolic Panel (09/18/2024 11:02 AM EST) Sodium 139 135 - 145 mmol/L [facility] Potassium 4.0 3.3 - 5.1 mmol/L [facility] Comment:Slight Hemolysis.Int erpret result with caution. Chloride 106 96 - 108 mmol/L [facility] Carbon Dioxide 24 22 - 29 mmol/L [facility] Anion Gap 13 12 - 20 [facility] Urea Nitrogen (BUN) 17(H) 9 - 16 mg/dL [facility] Creatinine, Serum 0.89 0.5 - 1.4 mg/dL [facility] Estimated Glomerular Filt Rate >60 [facility] Comment:Chronic Kidney Disea se: Estimated GFR < 60 mL/min/1.64o7Grucee Kidney Disease: Estimated GFR < 15 mL/min/1.73m2 Glucose 255(H) 60 - 115 mg/dL [facility] Calcium 9.0 8.4 - 10.2 mg/dL [facility] Bilirubin, Total 0.4 0.0 - 1.0 mg/dL [facility] Aspartate Amino Transferase 17 5 - 31 U/L [facility] Comment:Slight Hemolysis.Int erpret result with caution. Alanine Aminotransferase 27 0 - 31 U/L [facility] Total Protein 7.5 6.5 - 8.0 g/dL [facility] Albumin Level 3.9 3.5 - 5.0 g/dL [facility] Alkaline Phosphatase 104 39 - 117 U/L [facility] Blood Venous blood specimen / Unknown 09/18/2024 11:02 AM EST 09/18/2024 2:41 PM EST Princess Min WELDER/INSTALLER LAB BLOOD ORDERABLES Final Res ult Performing Organization Address [facility]/ZIP Co de Phone Number [facility] [address] [place] [phone] * TSH with Reflex to Free T4 (09/18/2024 11:02 AM EST) TSH reflex Free T4 0.97 0.32 - 4.0 uIU/mL [facility] Blood 09/18/2024 11:0 2 AM EST 09/18/2024 2:41 PM EST Princess Min [facility] LAB BLOOD ORDERABLES Final Res ult Performing Organization Address [facility] Co ok Phone Number [facility] [address] [place] [phone] * Lipid Panel, Standard (09/18/2024 11:02 AM EST) Triglycerides 136 <150 mg/dL [facility] Comment:Desirable Triglyceri de: less than 150 mg/dLBorderline High Triglyceride 150-199 mg/dLHigh Triglyceride: 200-499 mg/dLVery High Triglyceride: greater than or equal to 5OO mg/dL Cholesterol 156 <200 mg/dL [facility] Comment:Desirable Cholestero l: less than 200 mg/dLBorderline High Cholesterol: 200-239 mg/dLHigh Cholesterol: greater than 239 mg/dL LDL Cholesterol Calculated 75 <100 mg/dL [facility] Comment:Desirable LDL: less than 100 mg/dLNear Optimal/Above Optimal LDL: 110- 129 mg/dLBorderline High LDL: 130-159 mg/dLHigh LDL: 160-189 mg/dLVery High LDL: greater than or equal to 190 mg/dL HDL Cholesterol 54 >40 mg/dL [facility] Comment:Desirable HDL: great er than 40 mg/dL Note: This HDL assay may give artificially low results in patients with liver disease. Blood Venous blood specimen / Unknown 09/18/2024 11:02 AM EST 09/18/2024 2:41 PM EST us Princess VALENZUELA LAB BLOOD ORDERABLES Final Res ult [facility] [address] [place] [phone] documented in this encounter Visit Diagnoses Diagnosis Moderate persistent asthma without complication- Primary History of total knee arthroplasty, left Encounter for screening mammogram for malignant neoplasm of breast Healthcare maintenance Routine health maintenance Unspecified examination Type 2 diabetes mellitus without complication, with long-term current use of insulin ([facility]) documented in this encounter Additional Health Concerns Assessment Noted Time PHQ-9 Depression Total Score: 3 03/03/20 24 11:33 AM EDT documented as of this encounter Care Teams Miller Rod Mill Relationship Specialty Start Date End Date Princess Min FNP [address] [place] [address] PCP - General Family Medicine 02/10/24 documented as of this encounter
== END 2024-10-18 11:01 | disposition home or self-care (01) ==
LOC: HO.HPSW 10:12
PROVIDERS: PCP Registered Nurse; Referring Provider Orthopaedic Surgery; Visit Provider Nurse Practitioner Family
DX: J45.909 Unspecified asthma, uncomplicated (principal); F17.210 Nicotine dependence, cigarettes, uncomplicated
CPT/HCPCS: 99204

== ENCOUNTER → 2024-10-18 10:11 | Outpatient (BNVA) | payer MEDICAID, SELFPAY | PROVIDERS: PCP Registered Nurse; Referring Provider Orthopaedic Surgery; Visit Provider Nurse Practitioner Family | DX: J45.909 Unspecified asthma, uncomplicated (principal); F17.210 Nicotine dependence, cigarettes, uncomplicated | CPT/HCPCS: 99212 ==

== ENCOUNTER 2024-10-19 13:23 | Outpatient (REF) | payer MEDICAID, SELFPAY ==
--- NOTE | ~2024-10-19 | XR_ITS ---
CLINICAL HISTORY: J45.909 - Unspecified asthma, uncomplicated 2 view chest x-ray Comparison: None Findings: The lungs are clear. Normal size heart. No acute fracture. IMPRESSION: 1. No acute findings. This document has been electronically signed by: Hung Warner MD on 10/20/2024 09:01:47
--- OUTSIDE RECORDS SUMMARY | 2024-10-19 16:38 | XMS_ITS | Encounter Summary ---
Author Organization [employer] Address [address] [facility] 7t [place] [address] Care Team Providers Care Filenet Developer Name Role Phone Princess Min BATTERY RECHARGER Primary Care Provider [phone] Encounter Details Date Type Department Care Team ([facility] st Contact Info) Description 09/29/2024 11:15 AM EST Office Visit [facility] CHC MED & PEDS [address] [place], [place] [phone] Princess Min FNP [address] [place], [place] [phone] Moderate persistent asthma without complication (Primary Dx); Type 2 diabetes mellitus without complication, with long-term current use of insulin ([facility]); History of total knee arthroplasty, left Social [...] left knee revision surgery on 09/27/24 at [facility]. Reports that morning of surgery, it was cancelled by anaesthesia due to pulmonary concerns. She ishere in office to see what next steps are needed in order to reschedule surgery as her knee continues to be in moderate-severe pain. Provider called [facility] Ortho - surgical technician and confirmed details: she was determined to [...] feels safe in current living situation. 1 solar energy system installer helper that come to the house for assistance. [...] rescue inhaler > 2x/week Relevant Medications Humidifier [facility] Endocrine/Metabolic Diabetes mellitus ([facility]) Overview Lab Results Component Value Date HGBA1C 6.4 (H) 09/04/2024 HGBA1C 5.6 04/18/2024 HGBA1C 5.9 03/03/2024 HGBA1C 6.5 (H) 04/27/2023 -A1c goal </= 7.0%, well controlled Medications: -Invokana 300mg daily (SGLT2) -Lantus 28 units SQ nightly -Trulicity 0.75mg subcutaneous weekly (GLP1) -Reviewed med side effects and safety -Lifestyle recommendations reviewed -Pt to follow up with [facility] Endo Previous medications: - Ozempic (DC in May 2024 d/t SE - itching) Relevant Medications Dulaglutide (Trulicity) 1.5 MG/0.5ML solution auto-injector Other Relevant Orders POCT glucose manually resulted (Completed) Other History of total knee arthroplasty, left Overview 06/09/23 at [facility] - Dr. Laureano Current Assessment & Plan - Persistent pain with (+) effusion s/p fall at home - XR Feb 2024 in [facility] ED demonstrated increased demineralization along the subjacent proximal tibia,particularly subjacent to the medial flange of the prosthesis with possibile slight medial settling. Large joint effusion. - Apr 2024: Synovasure aspiration left knee by Dr. Laureano. Elevated CRP/sed rate. Joint fluid sentfor testing. - Initially scheduled for revision surgery 09/27/24, but not cleared by anaesthesia. Now pending Pullearance (referral through [facility] Ortho to [facility] Pulm) Follow up: per recall, sooner as needed. documented in this encounter Miscellaneous Notes * Assessment & Plan Note - BIANCA Arboleda - 10/01/2024 7:35 PM EDTAssociated Problem(s): History of total knee arthroplasty, left - Persistent pain with (+) effusion s/p fall at home - XR Feb 2024 in [facility] ED demonstrated increased demineralization along the subjacent proximal tibia,particularly subjacent to the medial flange of the prosthesis with possibile slight medial settling. Large joint effusion. - Apr 2024: Synovasure aspiration left knee by Dr. Laureano. Elevated CRP/sed rate. Joint fluid sentfor testing. - Initially scheduled for revision surgery 09/27/24, but not cleared by anaesthesia. Now pending Pullearance (referral through [facility] Ortho to [facility] Pulm) * Assessment & Plan Note - [...] use of insulin ([facility]) documented in this encounter Results * (ABNORMAL) POCT glucose manually resulted (09/29/2024 11:12 AM EST) Glucose Blood, POC 305(A) 60 - 200 mg/dL [employer] Media Lot # Comment:[id number] Lot# Expiration Date Comment:01/25/2025 Blood Capillary blood specimen / Unknown 09/29/2024 11:12 AM EST Princess VALENZUELA POINT OF CARE TEST ENTER/EDIT ORDERABLES Final Result documented in this encounter Visit Diagnoses Diagnosis Moderate persistent asthma without complication- Primary Type 2 diabetes mellitus without complication, with long-term current use of insulin ([facility]) History of total knee arthroplasty, left documented in this encounter Additional Health Concerns Assessment Noted Time PHQ-9 Depression Total Score: 3 03/03/20 24 11:33 AM EDT documented as of this encounter Care Teams Filenet Developer Relationship Specialty Start Date End Date Princess Min FNP [address] [place] [address] PCP - General Family Medicine 02/10/24 documented as of this encounter
--- OUTSIDE RECORDS SUMMARY | 2024-10-19 16:38 | XMS_ITS | Encounter Summary ---
Author Organization [employer] Address [address] [place] [address] Care Team Providers Care Lead Web Developer Name Role Phone Princess Min DOCUMENTATION SPEC Primary Care Provider [phone] Encounter Details Date Type Department Care Team [...] documented as of this encounter Care Teams Lead Web Developer Relationship Specialty Start Date End Date Princess Min FNP [address] [place] [phone] PCP - General Family Medicine 02/10/24 documented as of this encounter
--- OUTSIDE RECORDS SUMMARY | 2024-10-19 16:39 | XMS_ITS | Encounter Summary ---
Author Organization [employer] Address [address] [facility] 7t [place] [address] Care Team Providers Care Ground Host/Hostess Name Role Phone Princess Min Primary Care Provider [phone] Princess Min Primary Care Provider [phone] Reason for Visit * Reason Comments Med Change Request Encounter Details Date Type Department Care Team ([facility] Contact Info) Description 12/30/2023 Refill [facility] CHC MED & PEDS [address] [place], [place] [phone] Princess Min FNP [address] [place], [place] [phone] Social History Tobacco Use Types Packs/Day Years [...] as of this encounter Care Teams Ground Host/Hostess Relationship Specialty Start Date End Date Princess Min FNP [address] [place] [address] PCP - General Family Medicine 01/21/24 02/03/24 Princess Min FNP [address] [place] [address] PCP - General Family Medicine 02/10/24 documented as of this encounter
--- OUTSIDE RECORDS SUMMARY | 2024-10-19 16:39 | XMS_ITS | Encounter Summary ---
Author Organization [employer] Address [address] [facility] 7t [place] [address] Care Team Providers Care Ball Fringe Machine Operator Name Role Phone Princess Min DIE MAKER BENCH STAMPING Primary Care Provider [phone] Reason for Visit * Reason Onset Date Comments Med Refill Pre-op Exam 09/21/2024 Encounter Details Date Type Department Care Team (Late st Contact Info) Description 09/21/2024 Refill [facility] PED[facility] [address] [place], [place] [phone] Princess Min FNP [address] [place] [address] Type 2 diabetes mellitus with hyperglycemia, with long-term current use of insulin ([facility]) Social History Tobacco Use Types [...] AM EST Notes have been faxed to [facility]-Dr. Laureano's office (otho surgeon) documented in this encounter Plan of Treatment Not on file documented as of this encounter Visit Diagnoses Diagnosis Type 2 diabetes mellitus with hyperglycemia, with long-term current use of insulin ([facility]) documented in this encounter Additional Health Concerns Assessment Noted Time PHQ-9 Depression Total Score: 3 03/03/20 24 11:33 AM EDT documented as of this encounter Care Teams Ball Fringe Machine Operator Relationship Specialty Start Date End Date Princess Min FNP [address] [place] [address] PCP - General Family Medicine 02/10/24 documented as of this encounter
--- OUTSIDE RECORDS SUMMARY | 2024-10-19 16:39 | XMS_ITS | Encounter Summary ---
Author Organization [employer] Address [address] [facility] [address]t [place] [address] Care Team Providers Care Die Finisher Forging Name Role Phone Princess Min Primary Care Provider [phone] Princess Min Primary Care Provider [phone] Princess Min Primary Care Provider [phone] Reason for Visit * Reason Comments Med Refill Encounter Details Date Type Department Care Team ([facility] st Contact Info) Description 08/11/2022 Refill [facility] [address] [place], [place] [phone] Princess Min FNP [address] [place], [place] [phone] Cervical spondylosis Social History Tobacco Use Types [...] myelopathy documented in this encounter Care Teams Die Finisher Forging Relationship Specialty Start Date End Date Princess Min FNP [address] [place], [place] [phone] PCP - General Family Medicine 03/20/22 12/26/23 Princess Min FNP [address] [place] [address] PCP - General Family Medicine 01/21/24 02/03/24 Princess Min FNP [address] [place] [address] PCP - General Family Medicine 02/10/24 documented as of this encounter
--- OUTSIDE RECORDS SUMMARY | 2024-10-19 16:39 | XMS_ITS | Encounter Summary ---
Author Organization [employer] Address [address] [facility] 7t [place] [address] Care Team Providers Care Bed Bug Exterminator Name Role Phone Princess Min Primary Care Provider Princess Min Primary Care Provider [phone] Princess Min Primary Care Provider [phone] Reason for Visit * Reason Onset Date Comments PCP Switch 06/22/2023 Encounter Details Date Type Department Care Team (Late st Contact Info) Description 06/22/2023 Telephone [facility] [address] [place] [address] Princess Min FNP [address] [place], [place] [phone] PCP Switch Social History Tobacco Use Types [...] be seen by a doctor not a [employer]N [employer]TER ghost writer did express that it will be [...] documented as of this encounter Care Teams Bed Bug Exterminator Relationship Specialty Start Date End Date Princess Min FNP [address] [place] [address] PCP - General Family Medicine 03/20/22 12/26/23 Princess Min FNP [address] [place] [address] PCP - General Family Medicine 01/21/24 02/03/24 Princess Min FNP [address] [place] [address] PCP - General Family Medicine 02/10/24 documented as of this encounter
--- OUTSIDE RECORDS SUMMARY | 2024-10-19 16:39 | XMS_ITS | Encounter Summary ---
Author Organization [employer] Address 75 [facility] 7t [place] [address] Care Team Providers Care Nuisance Animal Damage Control Agent Name Role Phone Princess Min Primary Care Provider [phone] Princess Min Primary Care Provider [phone] Princess Min Primary Care Provider Reason for Visit * Reason Onset Date Comments Appointment Request 08/03/2022 Encounter Details Date Type Department Care Team (Late st Contact Info) Description 08/03/2022 Telephone [facility] MEDICINE [address] [place] [address] Princess Min FNP [address] [place], [place] [phone] Appointment Request Social History Tobacco Use Types [...] 12:26 PM EST Returned pt call via P/I#[id number], pt cancelled todays [employer] appt scheduled 11am. Pt previously cancelled 07/16/22 [employer] appt. Attempted to reschedule appt, offered 3 alternate times. 08/04/22, pt stated she will be in [place] for her sisters and back by 5pm. Offered her a time on 08/05/22, pt stated she doesn't know when she will be back. Offered her an appt today, 1 hour from now, beforeshe leaves for [place]. She said she will be long on her way to [place]. Reminded pt that she must attend these appointments to continue to receive her oxycodone script and that per her [employer]IRD STE[employer] POUR[employer] agreement she must come in within 24 hours for a random urine. Pt stated she will call back when she is available to reschedule. Will FYI PCP. * Telephone Encounter - Jareth Cifuentes - 08/03/2022 11:54 AM EST Tc from pt requesting to r/s appt 08/03/22 ( [employer]) pt states not able to come due to a lost in the family. Please contact pt at [phone] documented in this encounter Plan of Treatment Not on file documented as of this encounter Visit Diagnoses Not on filedocumented in this encounter Care Teams Nuisance Animal Damage Control Agent Relationship Specialty Start Date End Date Princess Min FNP [address] [place] [address] PCP - General Family Medicine 03/20/22 12/26/23 Princess Min FNP [address] [place] [address] PCP - General Family Medicine 01/21/24 02/03/24 Princess Min FNP [address] [place] [address] PCP - General Family Medicine 02/10/24 documented as of this encounter
--- OUTSIDE RECORDS SUMMARY | 2024-10-19 16:39 | XMS_ITS ---
Author Organization [facility] Address [address] [place] [address] Care Team Providers Care Regional Environmental Manager Name Role Phone CHARLES LARIOS, OMERO Primary Care Provider Naun Silva Jr, Aidan Otero [phone] REASON FOR VISIT screening colonoscopy Encounters Encounter Location Date Provider Diagnosis [facility] [address] [place] [address] [place] [address] 06/26/2024 Aidan Silva Jr Plan Of Treatment No Information Progress Notes * OREN CABALLEROLDOB:1965 (59 yo F)Acc No.[id number]:06/26/2024 Progress Notes Patient:?NIELS CABALLERO Provider:?Aidan Silva MD :1965???Age:58 Y???Sex:Female D ate:06/26/2024 Address:[address], [place] [id number] Pcp:OMERO SOTO MD Subjective: * Chief Complaints: [...] MD Date:?1 08/27/2023 Generated for Santosh zhao/Miles/eTkenyasmitting on:?10/19/2024 04:39 PM EDT
--- OUTSIDE RECORDS SUMMARY | 2024-10-19 16:39 | XMS_ITS | Encounter Summary ---
Author Organization [facility] Address 75 [facility] 7t [place] [address] Care Team Providers Care Rubber Liner Name Role Phone Princess Min ELECTRICAL EQUIPMENT TECHNICIAN Primary Care Provider [phone] Encounter Details Date Type Department Care Team ([facility] st Contact Info) Description 10/06/2024 Population Health Risk Score [facility] (C[facility]) Department [address] [facility] [address] [place] [id number] Provider, Population Health Generic Social History Tobacco [...] documented as of this encounter Care Teams Rubber Liner Relationship Specialty Start Date End Date Princess Min FNP [address] [place] [address] PCP - General Family Medicine 02/10/24 documented as of this encounter
--- OUTSIDE RECORDS SUMMARY | 2024-10-19 16:39 | XMS_ITS | Encounter Summary ---
Author Organization [employer] Address 75 [facility] 7t [place] [address] Care Team Providers Care Food Selector Name Role Phone Princess Min Primary Care Provider [phone] Princess Min Primary Care Provider [phone] Reason for Visit * Reason Onset Date Comments New Med Request 02/03/2024 Encounter Details Date Type Department Care Team (Late st Contact Info) Description 02/03/2024 Telephone [facility] MEDICINE [address] [place] [address] Princess Min FNP [address] [place], [place] [phone] New Med Request Social History Tobacco Use [...] documented as of this encounter Care Teams Food Selector Relationship Specialty Start Date End Date Princess Min FNP [address] [place] [address] PCP - General Family Medicine 01/21/24 02/03/24 Princess Min FNP [address] [place] [address] PCP - General Family Medicine 02/10/24 documented as of this encounter
--- OUTSIDE RECORDS SUMMARY | 2024-10-19 16:39 | XMS_ITS | Encounter Summary ---
Author Organization [employer] Address 75 [facility] 7t [place] [address] Care Team Providers Care Physical Plant Employee Name Role Phone Princess Min Primary Care Provider [phone] Princess Min Primary Care Provider [phone] Princess Min Primary Care Provider [phone] Reason for Visit * Reason Onset Date Comments Durable Medical Equipment 11/19/2022 Encounter Details Date Type Department Care Team (Late st Contact Info) Description 11/19/2022 Telephone [facility] MEDICINE [address] [place] [address] Princess Min FNP [address] [place], [place] [phone] Durable Medical Equipment Social History Tobacco Use [...] before I couldprovide a referral number to [facility] to process DME. Patient understood and agreed with plan. * Telephone Encounter - Miracle Dickens - 12/08/2022 4:32 PM EDT Tc from pt regarding message below. Pt states [facility] is requesting a PA If any questions please contact pt at [phone] * Telephone Encounter - Barbie Montanez - 12/08/2022 12:34 PM EDT Scripts received from provider and faxed to [facility] as requested. Patient notified. * Telephone Encounter - Dean Alvarado - 12/08/2022 12:06 PM EDT Tc from pt requesting status update on script for commode and shower chair, states would like script to sent to [facility]. Please contact at [phone] * Telephone Encounter - Barbie Montanez - 11/19/2022 3:16 PM EDT Scripts for shower chair and commode generated for signature * Telephone Encounter - Jareth Cifuentes - 11/19/2022 2:55 PM EDT Tc from pt requesting a script for a commode also a script for a shower chair. To be faxed to [facility] Please contact pt at [phone] documented in this encounter Plan of Treatment Not on file documented as of this encounter Visit Diagnoses Not on filedocumented in this encounter Additional Health Concerns Assessment Noted Time PHQ-9 Depression Total Score: 023 9:25 AM EDT documented as of this encounter Care Teams Physical Plant Employee Relationship Specialty Start Date End Date Princess Min FNP [address] [place] [address] PCP - General Family Medicine 03/20/22 12/26/23 Princess Min FNP [address] [place] [address] PCP - General Family Medicine 01/21/24 02/03/24 Princess Min FNP [address] [place] [address] PCP - General Family Medicine 02/10/24 documented as of this encounter
--- OUTSIDE RECORDS SUMMARY | 2024-10-19 16:39 | XMS_ITS | Encounter Summary ---
Author Organization [employer] Address [address] [facility] [address] 7t [place] [address] Care Team Providers Care Knowledge Architect Name Role Phone Princess Min Primary Care Provider [phone] Princess Min Primary Care Provider [phone] Reason for Visit * Reason Comments Med Refill Encounter Details Date Type Department Care Team ([facility] st Contact Info) Description 02/03/[address] [facility] [address] [place] [address] Princess Min FNP [address] [place], [place] [phone] Hypothyroidism, unspecified type Social History Tobacco Use [...] documented as of this encounter Care Teams Knowledge Architect Relationship Specialty Start Date End Date Princess Min FNP [address] [place] [address] PCP - General Family Medicine 01/21/24 02/03/24 Princess Min FNP [address] [place] [address] PCP - General Family Medicine 02/10/24 documented as of this encounter
--- OUTSIDE RECORDS SUMMARY | 2024-10-19 16:39 | XMS_ITS | Encounter Summary ---
Author Organization [employer] Address [address] [facility] [address] 7[address] [place] [address] Care Team Providers Care Rubber Stamps And Dies Supervisor Name Role Phone Princess Min Primary Care Provider [phone] Princess Min Primary Care Provider [phone] Encounter Details Date Type Department Care Team (Late st Contact Info) Description 12/28/2023 Telephone [facility] MEDICINE [address] [place] [address] Princess Min FNP [address] [place], [place] [phone] Social History Tobacco Use Types Packs/Day Years [...] as of this encounter Care Teams Rubber Stamps And Dies Supervisor Relationship Specialty Start Date End Date Princess Min FNP [address] [place] [address] PCP - General Family Medicine 01/21/24 02/03/24 Princess Min FNP [address] [place] [address] PCP - General Family Medicine 02/10/24 documented as of this encounter
--- OUTSIDE RECORDS SUMMARY | 2024-10-19 16:39 | XMS_ITS | Encounter Summary ---
Author Organization [employer] Address 75 [facility] 7t [place] [address] Care Team Providers Care Strip Cutter Name Role Phone Princess Min Primary Care Provider [phone] Princess Min Primary Care Provider [phone] Princess Min Primary Care Provider [phone] Reason for Visit * Reason Onset Date Comments PT1 04/27/2023 Encounter Details Date Type Department Care Team (Late st Contact Info) Description 04/27/2023 Telephone [facility] MEDICINE [address] [place] [address] Princess Min FNP [address] [place], [place] [phone] PT1 Social History Tobacco Use Types Packs/Day [...] Certification of Serious Illness is ready for seed cone picker at medical records. * Telephone Encounter - Barbie Montanez - 04/28/2023 3:58 PM EDT PT-1 submitted for patient. They will receive a letter of approval or denial in the mail. * Telephone Encounter - Velia Berry - 04/27/2023 4:43 PM EDT Tc form pt requesting PT1 Date: 05/06/23 Time: 10 AM address: [address] [place] [address] specialty: Psychologist # visits: n/a pinsetter mechanic helper: no Wheelchair: no documented in this encounter Plan of Treatment Not on file documented as of this encounter Visit Diagnoses Not on filedocumented in this encounter Additional Health Concerns Assessment Noted Time PHQ-9 Depression Total Score: 10 023 10:39 AM EDT documented as of this encounter Care Teams Strip Cutter Relationship Specialty Start Date End Date Princess Min FNP [address] [place] [address] PCP - General Family Medicine 03/20/22 12/26/23 Princess Min FNP [address] [place] [address] PCP - General Family Medicine 01/21/24 02/03/24 Princess Min FNP [address] [place] [address] PCP - General Family Medicine 02/10/24 documented as of this encounter
--- OUTSIDE RECORDS SUMMARY | 2024-10-19 16:39 | XMS_ITS | Encounter Summary ---
Author Organization [employer] Address 75 [facility] 7t [place] [address] Care Team Providers Care Highway Maintainer Name Role Phone Princess Min Primary Care Provider Reason for Visit * Reason Onset Date Comments Med Refill 07/13/2024 Encounter Details Date Type Department Care Team (Late st Contact Info) Description 07/13/2024 Telephone [facility] MEDICINE [address] [place] [address] Princess Min FNP [address] [place], [place] [phone] Med Refill Social History Tobacco Use Types [...] 7:46 PM EST She is not on [employer], would need appt to discuss pain control. [...] for the pain. Please contact pt at [phone]. documented in this encounter Plan of Treatment Not on file documented as of this encounter Visit Diagnoses Not on filedocumented in this encounter Additional Health Concerns Assessment Noted Time PHQ-9 Depression Total Score: 3 03/03/20 24 11:33 AM EDT documented as of this encounter Care Teams Highway Maintainer Relationship Specialty Start Date End Date Princess Min FNP [address] [place] [address] PCP - General Family Medicine 02/10/24 documented as of this encounter
--- OUTSIDE RECORDS SUMMARY | 2024-10-19 16:39 | XMS_ITS | Encounter Summary ---
Author Organization [employer] Address 75 [facility] 7t [place] [address] Care Team Providers Care Biometric Technician Name Role Phone Princess Min Primary Care Provider [phone] Reason for Visit * Reason Comments Med Refill Encounter Details Date Type Department Care Team ([facility] st Contact Info) Description 10/03/2024 Refill [facility] MEDICINE [address] [place] [address] Princess Min FNP [address] [place], [place] [phone] Type 2 diabetes mellitus without complication, with long-term current use of insulin ([facility]) Social History Tobacco Use Types Packs/Day Years [...] complication, with long-term current use of insulin ([facility]) documented in this encounter Additional Health Concerns Assessment Noted Time PHQ-9 Depression Total Score: 3 03/03/20 24 11:33 AM EDT documented as of this encounter Care Teams Biometric Technician Relationship Specialty Start Date End Date Princess Min FNP [address] [place] [address] PCP - General Family Medicine 02/10/24 documented as of this encounter
--- OUTSIDE RECORDS SUMMARY | 2024-10-19 16:39 | XMS_ITS | Encounter Summary ---
Author Organization [employer] Address [address] [facility] [address] 7t [place] [address] Care Team Providers Care Last Pattern Grader Name Role Phone Princess Min Primary Care Provider [phone] Princess Min Primary Care Provider [phone] Reason for Visit * Reason Onset Date Comments PT1 02/03/2024 Encounter Details Date Type Department Care Team ([facility] st Contact Info) Description 02/03/2024 Telephone [facility] MEDICINE [address] [place] [address] Princess Min FNP [address] [place], [place] [phone] PT1 Social History Tobacco Use Types Packs/Day [...] Y/N: Yes Provider name or facility name: [facility] Facility Address: [address] [place] [address] Escort needed: Y/N: No Do you have [...] documented as of this encounter Care Teams Last Pattern Grader Relationship Specialty Start Date End Date Princess Min FNP [address] [place] [address] PCP - General Family Medicine 01/21/24 02/03/24 Princess Min FNP [address] [place] [address] PCP - General Family Medicine 02/10/24 documented as of this encounter
--- OUTSIDE RECORDS SUMMARY | 2024-10-19 16:39 | XMS_ITS | Encounter Summary ---
Author Organization [employer] Address 75 [facility] 7t [place] [address] Care Team Providers Care Mallet Cutter Name Role Phone Princess Min Primary Care Provider [phone] Princess Min Primary Care Provider [phone] Reason for Visit * Reason Comments Med Refill Encounter Details Date Type Department Care Team ([facility] st Contact Info) Description 01/02/2024 Refill [facility] MEDICINE [address] [place] [address] Princess Min FNP [address] [place], [place] [phone] Social History Tobacco Use Types Packs/Day Years [...] documented as of this encounter Care Teams Mallet Cutter Relationship Specialty Start Date End Date Princess Min FNP [address] [place] [address] PCP - General Family Medicine 01/21/24 02/03/24 Princess Min FNP [address] [place] [address] PCP - General Family Medicine 02/10/24 documented as of this encounter
--- OUTSIDE RECORDS SUMMARY | 2024-10-19 16:39 | XMS_ITS | Encounter Summary ---
Author Organization [employer] Address 75 [facility] 7t [place] [address] Care Team Providers Care Vp Packaging Name Role Phone Princess Min ANALYST MICROBIOLOGY LAB Primary Care Provider [phone] Encounter Details Date Type Department Care Team [...] (09/21/2024 10:15 AM EST) Blood Type OP [facility] Antibody Screen NEGATIVE [facility] 09/21/2024 10:1 5 AM EST 09/21/2024 10:33 AM EST Narrative [facility] - 09/21/2024 11:18 AM EST WITNESSED BY TADNURSING:Call Blood Bank (ext. [phone]) to band patient on admission.Type and Screen in effect until 2300 on [id number] expiration changed by SRI on 09/21/24Reason: PAT SPEC us Generic External Data Provider LAB BLOOD BANK TE ST ORDERABLES Final Result [facility] [address] [place] [address] [phone] documented in this encounter Visit Diagnoses Not on filedocumented in this encounter Additional Health Concerns Assessment Noted Time PHQ-9 Depression Total Score: 3 03/03/20 24 11:33 AM EDT documented as of this encounter Care Teams Vp Packaging Relationship Specialty Start Date End Date Princess Min FNP [address] [place] [address] PCP - General Family Medicine 02/10/24 documented as of this encounter
--- OUTSIDE RECORDS SUMMARY | 2024-10-19 16:39 | XMS_ITS | Encounter Summary ---
Author Organization [employer] Address 75 [facility] 7t [place] [address] Care Team Providers Care Diaper Machine Tender Name Role Phone Princess Min Primary Care Provider [phone] Princess Min Primary Care Provider [phone] Princess Min Primary Care Provider [phone] Reason for Visit * Reason Onset Date Comments Appointment Request 11/20/2022 Encounter Details Date Type Department Care Team (Late st Contact Info) Description 11/20/2022 Telephone [facility] MEDICINE [address] [place] [address] Princess Min FNP [address] [place], [place] [phone] Appointment Request Social History Tobacco Use Types [...] to switching program. Please contact pt at [phone] Surinamese Speaker documented in this encounter Plan of Treatment Not on file documented as of this encounter Visit Diagnoses Not on filedocumented in this encounter Additional Health Concerns Assessment Noted Time PHQ-9 Depression Total Score: 023 9:25 AM EDT documented as of this encounter Care Teams Diaper Machine Tender Relationship Specialty Start Date End Date Princess Min FNP [address] [place] [address] PCP - General Family Medicine 03/20/22 12/26/23 Princess Min FNP [address] [place] [address] PCP - General Family Medicine 01/21/24 02/03/24 Princess Min FNP [address] [place] [address] PCP - General Family Medicine 02/10/24 documented as of this encounter
--- OUTSIDE RECORDS SUMMARY | 2024-10-19 16:39 | XMS_ITS | Encounter Summary ---
Author Organization [employer] Address 75 [facility] 7t [place] [address] Care Team Providers Care Family Services Assistant Name Role Phone Princess Min Primary Care Provider [phone] Reason for Visit * Reason Comments Med Refill Encounter Details Date Type Department Care Team ([facility] st Contact Info) Description 09/15/2024 Refill [facility] MEDICINE [address] [place] [address] Princess Min FNP [address] [place], [place] [phone] Social History Tobacco Use Types Packs/Day Years [...] documented as of this encounter Care Teams Family Services Assistant Relationship Specialty Start Date End Date Princess Min FNP [address] [place] [address] PCP - General Family Medicine 02/10/24 documented as of this encounter
--- OUTSIDE RECORDS SUMMARY | 2024-10-19 16:39 | XMS_ITS | Encounter Summary ---
Author Organization [employer] Address 75 [facility] 7t [place] [address] Care Team Providers Care Alteration Specialist Name Role Phone Princess Min Primary Care Provider [phone] Reason for Visit * Reason Onset Date Comments FYI 07/13/2024 Encounter Details Date Type Department Care Team ([facility] st Contact Info) Description 07/13/2024 Telephone [facility] MEDICINE [address] [place] [address] Princess Min FNP [address] [place], [place] [phone] FYI Social History Tobacco Use Types Packs/Day [...] documented as of this encounter Care Teams Alteration Specialist Relationship Specialty Start Date End Date Princess Min FNP [address] [place] [address] PCP - General Family Medicine 02/10/24 documented as of this encounter
--- OUTSIDE RECORDS SUMMARY | 2024-10-19 16:39 | XMS_ITS | Encounter Summary ---
Author Organization [employer] Address 75 [facility] 7t [place] [address] Care Team Providers Care Hook Puller Name Role Phone Princess Min Primary Care Provider [phone] Princess Min Primary Care Provider [phone] Reason for Visit * Reason Comments Med Change Request Encounter Details Date Type Department Care Team ([facility] Contact Info) Description 12/28/2023 Refill [facility] [address] [place], [place] [phone] Princess Min FNP [address] [place], [place] [phone] Social History Tobacco Use Types Packs/Day Years Used Date Smoking Tobacco: Some Days Cigarettes Smokeless Tobacco: Never Alcohol Use Standard Drinks/Week Comments Not Currently 0 (1 standard drink = 0.6 oz pur e alcohol) Occasionally Depression Answer Date Recorded Patient Health Questionnaire-9 Score 10 02/05/2023 Housing Stability Answer Date Recorded What is your housing situation today? I have ekrmit altman 05/11/[address] you [...] documented as of this encounter Care Teams Hook Puller Relationship Specialty Start Date End Date Princess Min FNP [address] [place] [address] PCP - General Family Medicine 01/21/24 02/03/24 Princess Min FNP [address] [place] [address] PCP - General Family Medicine 02/10/24 documented as of this encounter
--- OUTSIDE RECORDS SUMMARY | 2024-10-19 16:39 | XMS_ITS | Encounter Summary ---
Author Organization [employer] Address 75 [facility] 7t [place] [address] Care Team Providers Care Tombstone Erector Name Role Phone Princess Min Primary Care Provider [phone] Princess Min Primary Care Provider [phone] Princess Min Primary Care Provider [phone] Reason for Visit * Reason Onset Date Comments Triage 10/19/2022 Encounter Details Date Type Department Care Team ([facility] st Contact Info) Description 10/19/2022 Telephone [facility] MEDICINE [address] [place] [address] Princess Min FNP [address] [place], [place] [phone] Triage Social History Tobacco Use Types Packs/Day [...] EDT Triage call returned to patient via [employer] channeler insole [phone]. Patient reports only mild wheezing using albuterol [...] accepted this outcome Please contact pt at [phone] Iraqi speaker documented in this encounter Plan of Treatment Not on file documented as of this encounter Visit Diagnoses Not on filedocumented in this encounter Care Teams Tombstone Erector Relationship Specialty Start Date End Date Princess Min FNP [address] [place] [address] PCP - General Family Medicine 03/20/22 12/26/23 Princess Min FNP [address] [place] [address] PCP - General Family Medicine 01/21/24 02/03/24 Princess Min FNP [address] [place] [address] PCP - General Family Medicine 02/10/24 documented as of this encounter
--- OUTSIDE RECORDS SUMMARY | 2024-10-19 16:39 | XMS_ITS | Encounter Summary ---
Author Organization [employer] Address [address] [facility] [address] [place] [address] Care Team Providers Care Tripoler Name Role Phone Princess Min Primary Care Provider [phone] Princess Min Primary Care Provider [phone] Princess Min Primary Care Provider [phone] Reason for Visit * Reason Comments Med Refill Encounter Details Date Type Department Care Team ([facility] st Contact Info) Description 06/14/2023 Refill [facility] MED[facility]INE [address] [place] [address] Princess Min FNP [address] [place], [place] [id number] Social History Tobacco Use Types Packs/Day Years [...] documented as of this encounter Care Teams Tripoler Relationship Specialty Start Date End Date Princess Min FNP [address] [place] [address] PCP - General Family Medicine 03/20/22 12/26/23 Princess Min FNP [address] [place] [address] PCP - General Family Medicine 01/21/24 02/03/24 Princess Min FNP [address] [place] [address] PCP - General Family Medicine 02/10/24 documented as of this encounter
--- OUTSIDE RECORDS SUMMARY | 2024-10-19 16:39 | XMS_ITS | Encounter Summary ---
Author Organization [employer] Address [address] [facility] [address] [place] [address] Care Team Providers Care Inventory And Pricing Associate Name Role Phone Princess Min Primary Care Provider [phone] Reason for Visit * Reason Comments Med Refill Encounter Details Date Type Department Care Team ([facility] st Contact Info) Description 04/25/2024 Refill [facility] MED[facility]INE [address] [place] [address] Princess Min FNP [address] [place], [place] [phone] Social History Tobacco Use Types Packs/Day Years [...] documented as of this encounter Care Teams Inventory And Pricing Associate Relationship Specialty Start Date End Date Princess Min FNP [address] [place] [id number] PCP - General Family Medicine 02/10/24 documented as of this encounter
--- OUTSIDE RECORDS SUMMARY | 2024-10-19 16:39 | XMS_ITS | Clinical Summary ---
Author Organization [employer] Address [address] [place] [address] Care Team Providers Care Coach Name Role Phone Princess Min PROFESSIONAL NURSING ASSISTANT Primary Care Provider [phone] Allergies Active Allergy Reactions Criticality Noted Date [...] nostril(s). 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) Take 2 tablets by mouth once daily in the morning 180 tablet 1 2022 Active TRUEplus Lancets 33G miscIndications:Type 2 diabetes mellitus with hyperglycemia, unspecified whether adjunct faculty for medical terminology insulin use ([facility]) TEST BLOOD SUGAR TWICE DAILY 100 [...] hyperglycemia, with long-term current use of insulin ([facility]) USE WITH INSULIN DIRECTED 100 each 11 2023 Active metFORMIN (Glucophage) 500 MG tablet Take 2 tablets by mouth 2 times daily. 2023 Active glucose blood (FREESTYLE LITE) test stripIndications:Type 2 diabetes mellitus without complication, with long-term current use of insulin ([facility]) Test blood sugar twice daily 100 [...] 2 diabetes mellitus without complication, unspecified whether adjunct faculty for medical terminology insulin use ([facility]) TAKE 1 TABLET BY MOUTH EVERY [...] hyperglycemia, with long-term current use of insulin (CMS/[facility]) INJECT 28 UNITS SUBCUTANEOUSLY AT BEDTIME 15 mL 3 2024 Active Humidifier miscIndications:Modera te persistent asthma without complication Use as needed 1 each 2024 Active Dulaglutide (Trulicity) 1.5 MG/0.5ML solution auto-injectorIndicatio ns:Type 2 diabetes mellitus without complication, with long-term current use of insulin (CMS/[facility]) Inject 1.5 mg under the skin 1 (one) time per week. 2 mL 2 2024 Active insulin glargine (Lantus SoloStar) 100 UNIT/ML penIndications:Type 2 diabetes mellitus with hyperglycemia, with long-term current use of insulin (CMS/Stitch.es) Inject 28 Units under the skin at bedtime. 15 mL 3 09/21 Discontinued Dulaglutide (Trulicity) 0.75 MG/0.5ML solution auto-injectorIndicatio ns:Type 2 diabetes mellitus without complication, with long-term current use of insulin (CMS/Stitch.es) Inject 0.5 mL (0.75 mg) under the [...] arthroplasty, left 024 Overview (04/02/2024): 06/09/23 at [facility] - Dr. Laureano Assessment & Plan (10/01/2024 7:35 PM EDT): - Persistent pain with (+) effusion s/p fall at home - XR Feb 2024 in [facility] ED demonstrated increased demineralization along the subjacent proximal tibia, particularly subjacent to the medial flange of the prosthesis with possibile slight medial settling. Large joint effusion. - Apr 2024: Synovasure aspiration left knee by Dr. Laureano. Elevated CRP/sed rate. Joint fluid sent for testing. - Initially scheduled for revision surgery 09/27/24, but not cleared by anaesthesia. Now pending Pulm clearance (referral through [facility] Ortho to [facility] Pulm) Assessment & Plan (05/28/2024 7:19 AM EST): - Persistent pain with (+) effusion s/p fall at home - XR Feb 2024 in [facility] ED demonstrated increased demineralization along the subjacent [...] use, fewer than expected pills, and multiple OBSTETRICS TECH cancellations and NCNS, continue with taper for [...] -Left TKA performed 06/09/[address] Laureano ([facility] Ortho) Assessment & Plan (03/04/2024 6:12 PM [...] recommendations reviewed -Pt to follow up with [facility] Endo Previous medications: - Ozempic (DC in [...] intolerance, MCKEON, or palpitations -Previously followed by [facility] Endo, pt will call to schedule f/u Lab Results Component Value Date TSH 0.33 04/05/2023 Insomnia 05/27/2016 Trigger finger 05/27/2016 Overview (05/28/2024): Followed by [facility] Ortho PRN Vitamin D deficiency 04/17/2014 Cobalamin deficiency 03/23/2014 Mixed anxiety and depressive disorder 10/06/2013 Assessment & Plan (05/28/2024 7:27 AM EST): -Following with psych team from [facility] -Continue with Wellbutrin 300mg daily, -Denies [...] Team Description 10/06/2024 Population Health Risk Score [facility] () Department [address] [phone] Provider, Population Health Generic 10/03/2024 Refill [facility] [address] [place] [address] Princess Min FNP Type 2 diabetes mellitus without complication, with long-term current use of insulin (CMS/HCC) 09/29/2024 11:15 AM EST Office Visit [facility] [address] [place], [place] [phone] Princess Min FNP Moderate persistent asthma without complication (Primary Dx); Type 2 diabetes mellitus without complication, with long-term current use of insulin (CMS/HCC); History of total knee arthroplasty, left 09/29/2024 Travel 09/27/2024 Telephone [facility] [address] [place] [address] Princess Min FNP Nurse Triage 09/27/2024 Orders Only GENERIC EXTERNAL DATA DEPARTMENT Provider, Generic External Data 09/21/2024 Orders Only GENERIC EXTERNAL DATA DEPARTMENT Provider, Generic External Data 09/21/2024 Refill [facility] [address] [place] [address] Princess Min FNP Type 2 diabetes mellitus with hyperglycemia, with long-term current use of insulin (CMS/HCC) 09/20/2024 9:00 AM EST Office Visit [facility] [address] [place] [address] Carri Sawant FNP Chronic pain of left knee (Primary Dx); Preop examination; Type 2 diabetes mellitus without complication, with long-term current use of insulin (CMS/HCC); Essential hypertension; Mild persistent asthma without complication 09/20/2024 Travel 09/18/2024 10:15 AM EST Office Visit [facility] [address] [place] [address] Princess Min FNP Moderate persistent asthma without complication (Primary Dx); History of total knee arthroplasty, left; Encounter for screening mammogram for malignant neoplasm of breast; Healthcare maintenance; Routine health maintenance; Type 2 diabetes mellitus without complication, with long-term current use of insulin (CMS/HCC) 09/18/2024 Telephone [facility] [address] [place] [address] Princess Min FNP Durable Medical Equipment 09/18/2024 Travel 09/15/2024 1:20 PM EST Office Visit [facility] [address] [place] [phone] Alvaro Rocha MD Acute cough (Primary Dx); Wheezing; Nasal congestion; Moderate persistent asthma without complication 09/15/2024 Telephone [facility] [address] [place] [phone] Princess Min FNP Nurse Triage 09/15/2024 Refill [facility] [address] [place] [phone] Princess Min FNP 09/14/2024 Refill [facility] [address] [place] [address] Princess Min FNP Other migraine without status migrainosus, not intractable 09/14/2024 Telephone [facility] [address] [place] [address] Abdifatah Martinez MA Chart Prep 09/12/2024 Refill [facility] [address] [place] [address] Princess Min FNP Major depressive disorder, recurrent, moderate (CMS/HCC); Anxiety disorder, unspecified 09/12/2024 Telephone [facility] [address] [place] [address] Princess Min FNP Durable Medical Equipment 09/11/2024 Refill [facility] [address] [place] [address] Princess Min FNP Other migraine without status migrainosus, not intractable 09/07/2024 Refill [facility] [address] [place] [address] Princess Min FNP 09/04/2024 Orders Only GENERIC EXTERNAL DATA DEPARTMENT Provider, Generic External Data 08/17/[address] [facility] [address] [place] [address] Princess Min FNP Pre-Op appt. 08/16/[address] [address] Princess Min FNP No Show 08/15/2024 Travel 08/15/2024 Telephone [facility] [address] [place] [address] Princess Min FNP July08/13/2024 Refill [facility] [address] [place] [address] Princess Min FNP Primary hypertension from Last 3 Months Immunizations Name Administration [...] complication, with long-term current use of insulin (CMS/[facility]) HEMOGLOBIN + HEMATOCRIT Routine 09/27/2024 7:38 [...] complication, with long-term current use of insulin ([facility]) POCT GLUCOSE Routine 09/20/2024 9:02 AM EST Type 2 diabetes mellitus without complication, with long-term current use of insulin ([facility]) ALBUMIN, RANDOM URINE W/CREATININE Routine 09/18/2024 [...] TOMOSYNTHESIS BILATERAL Routine 02/09/2023 11:07 AM EDT HM COLONOSCOPY Routine 05/24/2017 from Last 3 Months or Most Recently Relevant to Health Maintenance Results * (ABNORMAL) POCT glucose manually resulted (09/29/2024 11:12 AM EST) Only the most recent of2 resultswithin the time period is included. Glucose Blood, POC 305(A) 60 - 200 mg/dL QC Media Lot # Comment:[id number] Lot# Expiration Date Comment:01/25/2025 Blood Capillary blood specimen / Unknown 09/29/2024 11:12 AM EST us Princess Min PROFESSIONAL NURSING ASSISTANT POINT OF CARE TEST ENTER/EDIT ORDERABLES Final Result * Hemoglobin and Hematocrit (09/27/2024 7:38 AM EST) [facility] Hemoglobin 13.1 12.0 - 16.0 g/dl [facility] Hematocrit 38.4 37.0 - 47.0 % [facility] 09/27/2024 7:38 AM EST 09/27/2024 7:48 AM EST Generic External Data Provider LAB BLOOD ORDERAB LES Final Result Performing Organization Address City/[facility]/ZIP Co de Phone Number [facility] [address] [place] [phone] * (ABNORMAL) Glucose, Whole Blood (09/27/2024 7:35 AM EST) Glucose, Whole Blood 318(H) 60 - 115 mg/dL [facility] Comment:METER #: [id number] 09/27/2024 7:35 AM EST 09/27/2024 7:55 AM EST Generic External Data Provider LAB BLOOD ORDERAB LES Final Result Performing Organization Address City/[facility]/ZIP Co de Phone Number [facility] [address] [place] [phone] * Type and screen (09/21/2024 10:15 AM EST) [facility] Signature Blood Type OP [facility] Antibody Screen NEGATIVE [facility] 09/21/2024 10:1 5 AM EST 09/21/2024 10:33 AM EST Narrative [facility] - 09/21/2024 11:18 AM EST WITNESSED BY CLAIREURSING:Call Blood Bank (ext. [phone]) to band patient on admission.Type and Screen in effect until 2300 on [id number] expiration changed by SRI on 09/21/24Reason: PAT SPEC Generic External Data Provider LAB BLOOD BANK TE ST ORDERABLES Final Result [facility] [address] [place] [phone] * ECG 12 lead (09/20/2024 4:21 PM EST) Narrative [facility] - 09/20/2024 4:21 PM EST NSR [facility] ECG ORDERABLES Final Result * (ABNORMAL) Prothrombin Time-INR (09/20/2024 9:54 AM EST) Prothrombin Time 10.3(L) 10.9 - 12.4 SEC [facility] INTERNATIONAL NORM RATIO 0.9 0.9 - 1.1 [facility] Comment:INTERNATIONAL NORMAL IZED RATIO (INR) REFERENCE [...] 9:54 AM EST 09/20/2024 2:18 PM EST [facility] LAB BLOOD ORDERABLES Final Re sult [facility] [address] [place] [address] [phone] * (ABNORMAL) POCT A1C (09/20/2024 9:03 AM EST) Hemoglobin A1C 7.9(A) 4.0 - 6.0 % QC Media Lot # Comment:[id number] Lot# Expiration Date Comment:05/12/2026 Blood 09/20/2024 9:03 AM EST [facility] POINT OF CARE TEST ENTER/EDIT ORDERABLES Final Result * Albumin, Random Urine W/Creatinine (09/18/2024 11:31 AM EST) Pathologist [facility] Creatinine, Urine 65.49 mg/dL [facility] Microalbumin Urine 8.0 mg/L [facility] Microalbum Creatinine Ratio Ur 12.2 <30 ug/mg cr [facility] Comment:Albumin/Creatinine R atio Reference Ranges: Normal: < 30 ug/mg creatinine Microalbuminuria: 30 - 300 ug/mg creatinineClinical Albuminuria: > 300 ug/mg creatinine Urine 09/18/2024 11:3 1 AM EST 09/18/2024 2:41 PM EST Princess Min [facility] URINE ORDERABLES Final Res ult [facility] [address] [place] [phone] * Hepatitis C Viral RNA, Quantitative, Real-Time PCR (09/18/2024 11:22 AM EST) Pathologist [facility] Hepatitis C Viral Load <15 NOT DETECTED NOT DETECTED IU/mL [facility] HCV Log PCR <1.18 NOT DETECTED NOT DETECTED Log IU/mL [facility] Comment:For additional infor mation, please refer tohttp://education.Flirtomatic/faq/GJL50y1(This link is being provided for informational/educational purposes only.)THIS TEST WAS PERFORMED AT:[facility] [place] [phone] GARCIA MD Blood 09/18/2024 11:2 2 AM EST 09/18/2024 2:41 PM EST us Princess Min PROFESSIONAL NURSING ASSISTANT LAB BLOOD ORDERABLES Final Res ult [facility] [address] [place] [phone] * (ABNORMAL) CBC auto differential (09/18/2024 11:22 AM EST) White Blood Count 8.1 4.8 - 10.8 X10*3/uL [facility] Red Blood Count 4.26 4.20 - 5.50 X10*6/uL [facility] Hemoglobin 12.9 12.0 - 16.0 g/dl [facility] Hematocrit 37.8 37.0 - 47.0 % [facility] Mean Corpuscular Volume 88.7 80.0 - 98.0 fL [facility] Mean Corpuscular Hemoglobin 30.3 27.0 - 33.0 pg [facility] Mean Corpuscular HGB Conc 34.1 31.0 - 35.0 g/dl [facility] Red Cell Distribution Width 12.9 11.0 - 16.0 % [facility] Platelet Count 247 160 - 400 X10*3/uL [facility] Mean Platelet Volume 10.7 9.4 - 12.3 fL [facility] Neutrophils Percent Auto 67.4 45 - 73 % [facility] Imm Gran Pct Auto 1.7(H) 0.0 - 0.4 % [facility] Lymphocytes Percent Auto 24.5 20 - 40 % [facility] Monocytes Percent Auto 5.3 2 - 11 % [facility] Eosinophils Percent Auto 0.6 0 - 4 % [facility] Basophils Percent Auto 0.5 0 - 2 % [facility] NRBC Pct Auto 0.0 0.0 - 0.2 /100WBC [facility] Neutrophils Absolute Auto 5.5 2.0 - 8.3 x10*3/uL [facility] Imm Gran Abs Auto 0.14(H) 0.00 - 0.03 X10*3/uL [facility] Lymphocytes Absolute Auto 2.0 1.2 - 4.9 X10*3/uL [facility] Monocytes Absolute Auto 0.4 0.1 - 1.2 X10*3/uL [facility] Eosinophils Absolute Auto 0.1 0.0 - 0.4 X10*3/uL [facility] Basophils Absolute Auto 0.0 0.0 - 0.2 X10*3/uL [facility] NRBC Abs Auto 0.000 0.0 - 0.012 X10*3/uL [facility] Blood Venous blood specimen / Unknown 09/18/2024 11:22 AM EST 09/18/2024 2:41 PM EST Princess Min PROFESSIONAL NURSING ASSISTANT LAB BLOOD ORDERABLES Final Res ult Performing Organization Address [facility] Co de Phone Number [facility] [address] [place] [phone] * RPR (Monitor) with Reflex to??Titer (09/18/2024 11:22 AM EST) RPR (Monitor) w/Refl Titer NON-REACTI VE NON-REACT MOOSE [facility] Comment:THIS TEST WAS PERFOR MED AT:[facility] [place] [id number] GARCIA MD Rapid Plasma Reagin Ab Titer TNP [facility] Blood Venous blood specimen / Unknown 09/18/2024 11:22 AM EST 09/18/2024 2:41 PM EST us Princess Phalida PROFESSIONAL NURSING ASSISTANT LAB BLOOD ORDERABLES Final Res ult Performing Organization Address City/[facility]/ZIP Co de Phone Number [facility] [address] [place] [phone] * HIV-1/2 Antigen and Antibodies, Fourth Generation, with Reflexes (09/18/2024 11:22 AM EST) HIV AB/AG Nonreactive Nonreactive [facility] Comment:HIV-1 p24 Ag and/or HIV-1/HIV-2 Ab not detected.A test result that is nonreactive does not exclude thepossibility of exposure to or infection with HIV-1 and/orHIV-2. Nonreactive results in this assay for individualswith prior exposure to HIV-1 and/or HIV-2 may be due toantigen and antibody levels that are below the limit ofdetection of this assay.The [employer] HIV Ag/Ab Combo assay result andsupplemental assay results should be interpreted inconjunction with the patient's clinical presentation,history and other laboratory results. If the results areinconsistent with clinical evidence, additional testing issuggested to confirm the result. Blood Venous blood specimen / Unknown 09/18/2024 11:22 AM EST 09/18/2024 2:41 PM EST Princess Mni [facility] BLOOD ORDERABLES Final Res ult [facility] [address] [place] [phone] * TSH with Reflex to Free T4 (09/18/2024 11:02 AM EST) TSH reflex Free T4 0.97 0.32 - 4.0 uIU/mL [facility] Blood 09/18/2024 11:0 2 AM EST 09/18/2024 2:41 PM EST Princess Min [facility] BLOOD ORDERABLES Final Res ult [facility] [address] [place] [phone] * Lipid Panel, Standard (09/18/2024 11:02 AM EST) Triglycerides 136 <150 mg/dL [facility] Comment:Desirable Triglyceri de: less than 150 mg/dLBorderline High Triglyceride 150-199 mg/dLHigh Triglyceride: 200-499 mg/dLVery High Triglyceride: greater than or equal to 5OO mg/dL Cholesterol 156 <200 mg/dL [facility] Comment:Desirable Cholestero l: less than 200 mg/dLBorderline High Cholesterol: 200-239 mg/dLHigh Cholesterol: greater than 239 mg/dL LDL Cholesterol Calculated 75 <100 mg/dL [facility] Comment:Desirable LDL: less than 100 mg/dLNear Optimal/Above Optimal LDL: 110- 129 mg/dLBorderline High LDL: 130-159 mg/dLHigh LDL: 160-189 mg/dLVery High LDL: greater than or equal to 190 mg/dL HDL Cholesterol 54 >40 mg/dL [facility] Comment:Desirable HDL: great er than 40 mg/dL Note: This HDL assay may give artificially low results in patients with liver disease. Blood Venous blood specimen / Unknown 09/18/2024 11:02 AM EST 09/18/2024 2:41 PM EST us Princess Min [facility] BLOOD ORDERABLES Final Res ult [facility] [address] [place] [address] [phone] * (ABNORMAL) Comprehensive Metabolic Panel (09/18/2024 11:02 AM EST) Sodium 139 135 - 145 mmol/L [facility] Potassium 4.0 3.3 - 5.1 mmol/L [facility] Comment:Slight Hemolysis.Int erpret result with caution. Chloride 106 96 - 108 mmol/L [facility] Carbon Dioxide 24 22 - 29 mmol/L [facility] Anion Gap 13 12 - 20 [facility] Urea Nitrogen (BUN) 17(H) 9 - 16 mg/dL [facility] Creatinine, Serum 0.89 0.5 - 1.4 mg/dL [facility] Estimated Glomerular Filt Rate >60 [facility] Comment:Chronic Kidney Disea se: Estimated GFR < 60 mL/min/1.83w0Jvngus Kidney Disease: Estimated GFR < 15 mL/min/1.73m2 Glucose 255(H) 60 - 115 mg/dL [facility] Calcium 9.0 8.4 - 10.2 mg/dL [facility] Bilirubin, Total 0.4 0.0 - 1.0 mg/dL [facility] Aspartate Amino Transferase 17 5 - 31 U/L [facility] Comment:Slight Hemolysis.Int erpret result with caution. Alanine Aminotransferase 27 0 - 31 U/L [facility] Total Protein 7.5 6.5 - 8.0 g/dL [facility] Albumin Level 3.9 3.5 - 5.0 g/dL [facility] Alkaline Phosphatase 104 39 - 117 U/L [facility] Blood Venous blood specimen / Unknown 09/18/2024 11:02 AM EST 09/18/2024 2:41 PM EST Princess Min PROFESSIONAL NURSING ASSISTANT LAB BLOOD ORDERABLES Final Res ult Performing Organization Address City/[facility]/ZIP Co de Phone Number [facility] [address] [place] [phone] * Influenza B (ID NOW Rapid Molecular) (09/15/2024 1:18 PM EST) Influenza B Negative Negative, Indeterminate [facility] Swab 09/15/2024 1:18 PM EST Alvaro Rocha MD POINT OF CARE TEST ENTER/EDIT OR DERABLES Final Result Performing Organization Address [facility] Co de Phone Number [facility] [address] [place] [phone] * Influenza A (ID NOW Rapid Molecular) (09/15/2024 1:18 PM EST) Pathologist [facility] Influenza A Negative Negative, Indeterminate [facility] Swab 09/15/2024 1:18 PM EST us Alvaro Name POINT OF CARE TEST ENTER/EDIT OR DERABLES Final Result Performing Organization Address [facility] Co de Phone Number [facility] [address] [place] [address] [phone] * POCT Rapid COVID Ag (09/15/2024 1:18 PM EST) [facility] Rapid COVID Ag Negative [facility] Swab 09/15/2024 1:18 PM EST Alvaro Name POINT OF CARE TEST ENTER/EDIT OR DERABLES Final Result Performing Organization Address [facility] Phone Number [facility] [address] [place] [address] [phone] * CBC (09/04/2024 11:40 AM EST) [facility] White Blood Count 5.8 4.8 - 10.8 X10*3/uL [facility] Red Blood Count 4.27 4.20 - 5.50 X10*6/uL [facility] Hemoglobin 13.1 12.0 - 16.0 g/dl [facility] Hematocrit 39.7 37.0 - 47.0 % [facility] Mean Corpuscular Volume 93.0 80.0 - 98.0 fL [facility] Mean Corpuscular Hemoglobin 30.7 27.0 - 33.0 pg [facility] Mean Corpuscular HGB Conc 33.0 31.0 - 35.0 g/dl [facility] Red Cell Distribution Width 13.2 11.0 - 16.0 % [facility] Platelet Count 182 160 - 400 X10*3/uL [facility] Mean Platelet Volume 10.3 9.4 - 12.3 fL [facility] NRBC Pct Auto 0.0 0.0 - 0.2 /100WBC [facility] NRBC Abs Auto 0.000 0.0 - 0.012 X10*3/uL [facility] 09/04/2024 11:4 0 AM EST 09/04/2024 11:40 AM EST us Generic External Data Provider LAB BLOOD ORDERAB LES Final Result Performing Organization Address [facility] [facility] Co de Phone Number [facility] [address] [place] [phone] * (ABNORMAL) Hemoglobin A1c (09/04/2024 11:40 AM EST) Hemoglobin A1c 6.4(H) <6.0 % [facility] Comment:Hemoglobin A1C Refer ence Range Adults: 4.8 - 6.0 % Non diabetic: < 6.0 % Goal: < 7.0 %Additional Action Suggested: > 8.0 %Note: Hemoglobin A1c results are invalid for patients with abnormal amounts of HbF. Blood transfusions may impact the HbA1c concentration in the patient sample. Estimated Average Glucose 137 mg/dL [facility] Comment:eAG = Estimated ave rage glucose which is %A1C expressed asaverage glucose, using the formula of the C4B-ByksmovNyggxfx Glucose study (ADAG), Diabetes Care, Vol.31,#8,Feb. 2007 09/04/2024 11:4 0 AM EST 09/04/2024 11:40 AM EST us Generic External Data Provider LAB BLOOD ORDERAB LES Final Result Performing Organization Address [facility] Co de Phone Number [facility] [address] [place] [phone] * (ABNORMAL) Basic Metabolic Panel (09/04/2024 11:40 AM EST) Sodium 142 135 - 145 mmol/L [facility] Potassium 3.9 3.3 - 5.1 mmol/L [facility] Comment:Slight Hemolysis.Int erpret result with caution. Chloride 111(H) 96 - 108 mmol/L [facility] Carbon Dioxide 25 22 - 29 mmol/L [facility] Anion Gap 10(L) 12 - 20 [facility] Urea Nitrogen (BUN) 10 9 - 16 mg/dL [facility] Creatinine, Serum 0.79 0.5 - 1.4 mg/dL [facility] Creatinine Clr Calc Pharmacy 82.5 [facility] Comment:Provided height and weight: 154.94 cm,102.965 kg.eGFR (calculated from the MDRD study equation) and eCrCl(calculated from the Cockcroft-Gault equation) are based ondifferent parameters and may not yield comparable results.If eCrCl result is absurd, please check patient'sheight/weight. Estimated Glomerular Filt Rate >60 [facility] Comment:Chronic Kidney Disea se: Estimated GFR < 60 mL/min/1.33t5Rkhthg Kidney Disease: Estimated GFR < 15 mL/min/1.73m2 Glucose 67 60 - 115 mg/dL [facility] Calcium 8.8 8.4 - 10.2 mg/dL [facility] 09/04/2024 11:4 0 AM EST 09/04/2024 11:40 AM EST us [employer] External Data Provider LAB BLOOD ORDERAB LES Final Result [facility] [address] [place] [phone] * (ABNORMAL) MRSA Nasal Screen (09/04/2024 10:15 AM EST) MRSA Nasal PCR NEGATIVE Negative [facility] SA Nasal PCR POSITIVE(A) Negative [facility] MRSA Interpretation SEE NOTE [facility] Comment:MRSA target DNA not detected; SA target DNA detected.A MRSA NEGATIVE, SA POSITIVE test result does not precludeMRSA nasal colonization. 09/04/2024 10:1 5 AM EST 09/04/2024 11:20 AM EST us Generic External Data Provider LAB MICROBIOLOGY - GENERAL ORDERABLES Final Result [facility] [address] [place] [phone] * BI Mammogram Screening Tomosynthesis Bilateral (02/09/2023 11:07 AM EDT) Anatomical Region Laterality Modality Breast Bilateral Mammography 02/09/2023 11:0 7 AM EDT Narrative 03/05/2023 6:25 AM EDT ? [facility] ? [address] ?[place] [address] ? Mammography Report ? Signed ? Patient: Jose OliverArgelia ?MR#: [id number] ?? [id number] ? : 1965 ?Acct:[id number] ? Age/Sex: 57 / F ?ADM Date: 02/09/23 ? Loc: HO.MAMMO ? Attending Dr: Princess Min PROFESSIONAL NURSING ASSISTANT ? Ordering Physician: Mechelle,Princess PROFESSIONAL NURSING ASSISTANT ?Results: ? Date of Service: 02/09/23 ?Follow Up: ? Procedure(s): MM tomosynthesis screening BI ?? Accession Number(s): [id number] ? cc: Princess Min PROFESSIONAL NURSING ASSISTANT ? EXAMINATION: ?? MM SCREENING DIGITAL BREAST [...] by Margo Shankar MD in OV> ? 03/05/23 06 ? DD/ 1107 ? TD/TT: ? 3D Specialist: ? Procedure Note Tracey, Image - 03/05/2023 [facility] [address] [place] [address] [place] [address] Mammography Report Signed Patient: Nini Messina#: [id number] : 1965Acct:[id number] Age/Sex: 57 / FADM Date: 02/09/23 Loc: VINAY Attending Dr: Princess Min PROFESSIONAL NURSING ASSISTANT Ordering Physician: Princess Min FNPResults: Date of Service: 02/09/23Follow Up: Procedure(s): MM tomosynthesis screening BI Accession Number(s): [id number] cc: Princess iMn PROFESSIONAL NURSING ASSISTANT EXAMINATION: MM SCREENING DIGITAL BREAST TOMOSYNTHESIS, BILATERAL [...] in OV> 03/05/23 0623 DD/ 1107 TD/TT: 3D Specialist: Princess Min PROFESSIONAL NURSING ASSISTANT IMG BI PROCEDURES Final Result * Colonoscopy (05/24/2017) Colonoscopy Normal Normal Historical Provider HEALTH MAINTENANCE Final Result from Last 3 Months or Most Recently Relevant to Health Maintenance Insurance [facility] C3 DENTAL-[facility] MEDICAID STAND ADULT Care Teams Coach Relationship Specialty Start Date End Date Princess Min FNP [address] [place] [address] PCP - General Family Medicine 02/10/24
--- OUTSIDE RECORDS SUMMARY | 2024-10-19 16:39 | XMS_ITS | Patient Health Record ---
Author Organization [facility] Address [address] [place] [address] Care Team Providers Care Purchase Order Checker Name Role Phone OMERO SOTO MD Primary Care Provider Aidan Fried Jr Unavailable Reason For Referral Referring Provider First Name OMERO Referring Provider Last Name CHARLES Referred Organization [facility] Referred Provider Aidan Silva Jr Referred Address [address] [facility] [address],[place],[address], Referred Provider Specialty Gastroentero logy Referral Priority Routine Encounters Encounter Location Date Provider Diagnosis [facility] [address] [facility] [address] [place] [address] 06/21/2024 Aidan Silva Jr Plan Of Treatment No Information Insurance Providers Payer Name Payer Address Payer Phone Subscriber Number Group Number Insured Name Patient Relationship to Insured Coverage Start Date Coverage End Date [facility] [employer] [facility] [address] [place] [id number] MELINA CARLISLE NIELS Self - patient is the insured
--- OUTSIDE RECORDS SUMMARY | 2024-10-19 16:39 | XMS_ITS | Encounter Summary ---
Author Organization [employer] Address [address] [facility] 7t [place] [address] Care Team Providers Care Fundraising Director Name Role Phone Princess Min Primary Care Provider [phone] Princess Min Primary Care Provider Princess Min Primary Care Provider [phone] Reason for Visit * Reason Onset Date Comments PT1 request 10/19/2022 Encounter Details Date Type Department Care Team (Late st Contact Info) Description 10/19/2022 Telephone [facility] MEDICINE [address] [place] [address] Princess Min FNP [address] [place], [place] [phone] PT1 request Social History Tobacco Use Types [...] / denial letter via mail. PT-1 Request [id number] Authorized - [facility] PT-1 Request [id number] Pending [facility] [place] [address] [place] [address] * Telephone Encounter - Alissa Winkler - 10/19/2022 11:55 AM EDT Tc from pt requesting PT1 Location:[facility] Specialty: Provider Date&Time:N/a Resistor Winder: yes Uses cane Location: [facility] Specialty: Orthopedics Date&Time: N/a Resistor Winder: Yes Location:2 [facility] Specialty: [facility] center Date&Time:N/a Resistor Winder: yes documented in this encounter Plan of Treatment Not on file documented as of this encounter Visit Diagnoses Not on filedocumented in this encounter Care Teams Fundraising Director Relationship Specialty Start Date End Date Princess Min FNP [address] [place] [address] PCP - General Family Medicine 03/20/22 12/26/23 Princess Min FNP [address] [place] [address] PCP - General Family Medicine 01/21/24 02/03/24 Princess Min FNP [address] [place] [address] PCP - General Family Medicine 02/10/24 documented as of this encounter
--- OUTSIDE RECORDS SUMMARY | 2024-10-19 16:39 | XMS_ITS | Encounter Summary ---
Author Organization [employer] Address [address] [facility] 7t [place] [address] Care Team Providers Care Research Physician Name Role Phone Princses Min Primary Care Provider [phone] Reason for Visit * Reason Onset Date Comments Med Refill 02/11/2024 Encounter Details Date Type Department Care Team (Late st Contact Info) Description 02/11/2024 Telephone [facility] MEDICINE [address] [place] [address] Princess Min FNP [address] [place], [place] [phone] Med Refill Social History Tobacco Use Types [...] 1:02 PM EDT Medication was sent to [facility] on 11/29/23 with 3 refills. * Telephone Encounter - Drake Levy - 02/11/2024 11:57 AM EDT TC from pt requesting medication refill. Medications needing refill : Asmanex HFA 200 MCG/ACT aerosol To be sent to: [facility] - [place], [place] - [address] [facility] documented in this encounter Plan of Treatment Not on file documented as of this encounter Visit Diagnoses Not on filedocumented in this encounter Additional Health Concerns Assessment Noted Time PHQ-9 Depression Total Score: 10 023 10:39 AM EDT documented as of this encounter Care Teams Research Physician Relationship Specialty Start Date End Date Princess Min FNP [address] [place] [address] PCP - General Family Medicine 02/10/24 documented as of this encounter
--- OUTSIDE RECORDS SUMMARY | 2024-10-19 16:39 | XMS_ITS | Encounter Summary ---
Author Organization [employer] Address [address] [facility] 7t [place] [address] Care Team Providers Care Senior Policy Associate Name Role Phone Princess Min Primary Care Provider [phone] Princess Min Primary Care Provider Princess Min Primary Care Provider [phone] Reason for Visit * Reason Onset Date Comments Referral 11/20/2022 Encounter Details Date Type Department Care Team (Late st Contact Info) Description 11/20/2022 Telephone [facility] MEDICINE [address] [place] [address] Princess Min FNP [address] [place], [place] [phone] Referral Social History Tobacco Use Types Packs/Day [...] would like to see [place] Deras [place] [facility] because of her strong family hx of [...] Specialty: Seth Deras [facility] Location:[address] [place] [address] Dr Dorsey [address] [place] [address] Date&Time: n/a Supervisor Vegetable Farming: n/a Please call pt to clarify. documented in this encounter Plan of Treatment Not on file documented as of this encounter Visit Diagnoses Not on filedocumented in this encounter Additional Health Concerns Assessment Noted Time PHQ-9 Depression Total Score: 023 9:25 AM EDT documented as of this encounter Care Teams Senior Policy Associate Relationship Specialty Start Date End Date Princess Min FNP [address] [place] [address] PCP - General Family Medicine 03/20/22 12/26/23 Princess Min FNP [address] [place] [address] PCP - General Family Medicine 01/21/24 02/03/24 Princess Min FNP [address] [place] [address] PCP - General Family Medicine 02/10/24 documented as of this encounter
--- OUTSIDE RECORDS SUMMARY | 2024-10-19 16:39 | XMS_ITS | Encounter Summary ---
Author Organization [employer] Address 75 [facility] 7t [place] [address] Care Team Providers Care Motors And Controls Tester Name Role Phone Princess Min Primary Care Provider [phone] Reason for Visit * Reason Comments Med Refill Encounter Details Date Type Department Care Team ([facility] st Contact Info) Description 07/17/2024 Refill [facility] [address] [place], [place] [phone] Princess Min FNP [address] [place], [place] [phone] Acute otitis externa of left ear, unspecified [...] documented as of this encounter Care Teams Motors And Controls Tester Relationship Specialty Start Date End Date Princess Min FNP [address] [place] [address] PCP - General Family Medicine 02/10/24 documented as of this encounter
--- OUTSIDE RECORDS SUMMARY | 2024-10-19 16:39 | XMS_ITS | Encounter Summary ---
Author Organization [employer] Address [address] [facility] 7t [place] [address] Care Team Providers Care Salon Professional Name Role Phone Princess Min Primary Care Provider [phone] Princess Min Primary Care Provider [phone] Princess Min Primary Care Provider [phone] Reason for Visit * Reason Comments Med Refill Encounter Details Date Type Department Care Team (Late st Contact Info) Description 08/07/2022 Refill [facility] MEDICINE [address] [place], [place] [phone] Princess Min FNP [address] [place], [place] [phone] Cervical spondylosis Social History Tobacco Use Types [...] myelopathy documented in this encounter Care Teams Salon Professional Relationship Specialty Start Date End Date Princess Min FNP [address] [place], [place] [phone] PCP - General Family Medicine 03/20/22 12/26/23 Princess Min FNP [address] [place] [address] PCP - General Family Medicine 01/21/24 02/03/24 Princess Min FNP [address] [place] [address] PCP - General Family Medicine 02/10/24 documented as of this encounter
--- OUTSIDE RECORDS SUMMARY | 2024-10-19 16:39 | XMS_ITS | Encounter Summary ---
Author Organization [employer] Address 75 [facility] 7t [place] [address] Care Team Providers Care Database Engineer Name Role Phone Princess Min Primary Care Provider [phone] Reason for Visit * Reason Onset Date Comments Pre op 06/12/2024 Encounter Details Date Type Department Care Team (Late st Contact Info) Description 06/12/[address] [facility] MEDICINE [address] [place] [address] Princess Min FNP [address] [place], [place] [phone] Pre op Social History Tobacco Use Types [...] Yes Surgeon's name: Dr Laureano Facility name: [facility] Surgeon's office number: [phone] Surgeon's office fax number: [phone] Contact name (person you spoke with): Stephanie [...] documented as of this encounter Care Teams Database Engineer Relationship Specialty Start Date End Date Princess Min FNP [address] [place] [address] PCP - General Family Medicine 02/10/24 documented as of this encounter
--- OUTSIDE RECORDS SUMMARY | 2024-10-19 16:39 | XMS_ITS ---
Author Organization [facility] Address [address] [place] [address] Care Team Providers Care Body Straightener Name Role Phone CHARLES LARIOS, OMERO Primary Care Provider Naun Silva Jr, Aidan Otero [phone] REASON FOR VISIT conf appt Encounters Encounter Location Date Provider Diagnosis [facility] [address] [place] [address] 06/21/2024 Aidan Silva Jr Plan Of Treatment No Information Progress Notes * MADAY CABALLEROOB:1965 (58 yo F)Acc No.[id number]:06/21/2024 Patient:?NIELS CABALLERO :1965???Age:58 Y???Sex:Female Address:[address], [place], [address] * true * Date:? Generated for Santosh zhao/Miles/eTransmitting on:?10/19/2024 04:39 PM EDT
--- OUTSIDE RECORDS SUMMARY | 2024-10-19 16:39 | XMS_ITS | Encounter Summary ---
Author Organization [employer] Address [address] [facility] 7t [place] [address] Care Team Providers Care Manager Business Name Role Phone Princess Min Primary Care Provider [phone] Princess Min Primary Care Provider [phone] Princess Min Primary Care Provider [phone] Reason for Referral * Imaging (Routine) - Closed Specialty Diagnoses / Procedures Referred By Ealina t Referred To Contact Diagnoses Encounter for screening mammogram for malignant neoplasm of breast Procedures BI Mammogram Screening Bilateral Princess Min FNP [address] [place] [address] Phone: tel: fax: [address] Phone: tel: fax: Referral ID Status Reason Start Date Expiration Date Visits Re quested Visits Authorized [id number] Closed 11/23/2022 05/22/2023 1 1 Reason for Visit * Reason Onset Date Comments Referral 11/20/2022 Encounter Details Date Type Department Care Team (Late st Contact Info) Description 11/20/2022 Telephone [facility] MEDICINE [address] [place] [address] Princess Min FNP [address] [place], [place] [phone] Referral Social History Tobacco Use Types Packs/Day [...] EDT Please fax order for mammo to [facility] and call to let Ms. Garcia know when completed. Thank you. * Telephone Encounter - Alissa Winkler - 11/20/2022 10:16 AM EDT Tc from pt requesting a mammogram referral . Location [facility]. documented in this [...] as of this encounter Care Teams Manager Business Relationship Specialty Start Date End Date Princess Min FNP [address] [place] [address] PCP - General Family Medicine 03/20/22 12/26/23 Princess Min FNP [address] [place] [address] PCP - General Family Medicine 01/21/24 02/03/24 Princess Min FNP [address] [place] [address] PCP - General Family Medicine 02/10/24 documented as of this encounter
--- OUTSIDE RECORDS SUMMARY | 2024-10-19 16:39 | XMS_ITS | Encounter Summary ---
Author Organization [employer] Address 75 [facility] 7t [place] [address] Care Team Providers Care Carpet Mechanic Name Role Phone Princess Min Primary Care Provider [phone] Princess Min Primary Care Provider [phone] Princess Min Primary Care Provider [phone] Reason for Visit * Reason Onset Date Comments Durable Medical Equipment 10/27/2022 Encounter Details Date Type Department Care Team (Late st Contact Info) Description 10/27/2022 Telephone [facility] MEDICINE [address] [place] [address] Princess Min FNP [address] [place], [place] [phone] Durable Medical Equipment Social History Tobacco Use [...] shower head, script to be send to [facility]. documented in this encounter Plan of Treatment Not on file documented as of this encounter Visit Diagnoses Not on filedocumented in this encounter Care Teams Carpet Mechanic Relationship Specialty Start Date End Date Princess Min FNP [address] [place] [address] PCP - General Family Medicine 03/20/22 12/26/23 Princess Min FNP [address] [place] [address] PCP - General Family Medicine 01/21/24 02/03/24 Princess Min FNP [address] [place] [address] PCP - General Family Medicine 02/10/24 documented as of this encounter
--- OUTSIDE RECORDS SUMMARY | 2024-10-19 16:39 | XMS_ITS | Encounter Summary ---
Author Organization [employer] Address [address] [facility] 7t [place] [address] Care Team Providers Care Tile Roofer Name Role Phone Princess Min Primary Care Provider [phone] Princess Min Primary Care Provider [phone] Princess Min Primary Care Provider [phone] Reason for Visit * Reason Onset Date Comments PT1 11/20/2022 Encounter Details Date Type Department Care Team (Late st Contact Info) Description 11/20/2022 Telephone [facility] MEDICINE [address] [place] [address] Princess Min FNP [address] [place], [place] [phone] PT1 Social History Tobacco Use Types Packs/Day [...] / denial letter via mail. PT-1 Request [id number] Authorized - [facility] [address] [address] * Telephone Encounter - Mayur Thomas - 11/20/2022 9:19 AM EDT Tc from pt requesting to Renew PT1 for Name of facility: n/a Specialty: All Future appts Location: [address] [place] [address] Date: n/a Time: n/a fax: n/a Phone: n/a wheelchair: n/a Packaging Manager: Yes (Adult) For all future appts documented in this encounter Plan of Treatment Not on file documented as of this encounter Visit Diagnoses Not on filedocumented in this encounter Additional Health Concerns Assessment Noted Time PHQ-9 Depression Total Score: 24 023 9:25 AM EDT documented as of this encounter Care Teams Tile Roofer Relationship Specialty Start Date End Date Princess Min FNP [address] [place] [address] PCP - General Family Medicine 03/20/22 12/26/23 Princess Min FNP [address] [place] [address] PCP - General Family Medicine 01/21/24 02/03/24 Princess Min FNP [address] [place] [address] PCP - General Family Medicine 02/10/24 documented as of this encounter
--- OUTSIDE RECORDS SUMMARY | 2024-10-19 16:39 | XMS_ITS | Encounter Summary ---
Author Organization [employer] Address [address] [facility] 7t [place] [address] Care Team Providers Care Casing Splitter Name Role Phone Princess Min Primary Care Provider [phone] Reason for Visit * Reason Onset Date Comments Durable Medical Equipment 09/12/2024 Encounter Details Date Type Department Care Team (Late st Contact Info) Description 09/12/2024 Telephone [facility] MEDICINE [address] [place] [address] Princess Min FNP [address] [place], [place] [phone] Durable Medical Equipment Social History Tobacco Use [...] documented as of this encounter Care Teams Casing Splitter Relationship Specialty Start Date End Date Princess Min FNP [address] [place] [address] PCP - General Family Medicine 02/10/24 documented as of this encounter
--- OUTSIDE RECORDS SUMMARY | 2024-10-19 16:39 | XMS_ITS | Encounter Summary ---
Author Organization [employer] Address [address] [facility] 7t [place] [address] Care Team Providers Care Middle School Humanities Teacher Name Role Phone Princess Min Primary Care Provider [phone] Reason for Visit * Reason Onset Date Comments Nurse Triage 09/27/2024 Encounter Details Date Type Department Care Team (Late st Contact Info) Description 09/27/2024 Telephone [facility] MEDICINE [address] [place] [address] Princess Min FNP [address] [place], [place] [phone] Nurse Triage Social History Tobacco Use Types [...] pt to triage, spoke to pt. through [place] professor of industrial technology. pt states went for surgery this morning, [...] distress. given appt with PCP Wednesday in [facility] at 11:15 for exam and recheck. [...] above 300 The caller accepted this outcome. [phone] [place] Pt states had knee surgery today but [...] documented as of this encounter Care Teams Middle School Humanities Teacher Relationship Specialty Start Date End Date Princess Min FNP [address] [place] [address] PCP - General Family Medicine 02/10/24 documented as of this encounter
--- OUTSIDE RECORDS SUMMARY | 2024-10-19 16:40 | XMS_ITS | Encounter Summary ---
Author Organization [employer] Address 75 [facility] 7t [place] [address] Care Team Providers Care Client Experience Consultant Name Role Phone Princess Min SHEET IRONWORKER Primary Care Provider [phone] Encounter Details Date Type Department Care Team [...] EST) Hemoglobin 13.1 12.0 - 16.0 g/dl [facility] Hematocrit 38.4 37.0 - 47.0 % [facility] 09/27/2024 7:38 AM EST 09/27/2024 7:48 AM EST us Generic External Data Provider LAB BLOOD ORDERAB LES Final Result [facility] [address] [place] [phone] * (ABNORMAL) Glucose, Whole Blood (09/27/2024 7:35 AM EST) Glucose, Whole Blood 318(H) 60 - 115 mg/dL [facility] Comment:METER #: [id number] 09/27/2024 7:35 AM EST 09/27/2024 7:55 AM EST us Generic External Data Provider LAB BLOOD ORDERAB LES Final Result [facility] [address] [place] [address] [phone] documented in this encounter Visit Diagnoses Not on filedocumented in this encounter Additional Health Concerns Assessment Noted Time PHQ-9 Depression Total Score: 3 03/03/20 24 11:33 AM EDT documented as of this encounter Care Teams Client Experience Consultant Relationship Specialty Start Date End Date Princess Min FNP [address] [place] [address] PCP - General Family Medicine 02/10/24 documented as of this encounter
--- OUTSIDE RECORDS SUMMARY | 2024-10-19 16:40 | XMS_ITS | Encounter Summary ---
Author Organization [employer] Address [address] [facility] [address] 7t [place] [address] Care Team Providers Care Mechanic Welder Name Role Phone Princess Min MANAGER ASSEMBLY Primary Care Provider [phone] Encounter Details Date Type Department Care Team [...] documented as of this encounter Care Teams Mechanic Welder Relationship Specialty Start Date End Date Princess Min FNP [address] [place] [address] PCP - General Family Medicine 02/10/24 documented as of this encounter
--- OUTSIDE RECORDS SUMMARY | 2024-10-19 16:40 | XMS_ITS | Encounter Summary ---
Author Organization [employer] Address 75 [facility] 7t [place] [address] Care Team Providers Care Gambling Broker Name Role Phone Princess Min [facility] Primary Care Provider [phone] Reason for Visit * Reason Comments Pre-op Exam Encounter Details Date Type Department Care Team ([facility] st Contact Info) Description 09/20/2024 9:00 AM EST Office Visit [facility] MED & PEDS [address] [place], [place] [phone] [facility] [address] [place] [address] Chronic pain of left knee (Primary Dx); Preop examination; Type 2 diabetes mellitus without complication, with long-term current use of insulin ([facility]); Essential hypertension; Mild persistent asthma without complication [...] documented in this encounter Progress Notes * [facility], OPERATIONS SUPPORT COORDINATOR - 09/20/2024 9:00 AM EST Argelia Oliver is a 59 y.o. year old female patient with type 2 diabetes, hypertension, HFpEF, hypothyroid, asthma who presents for preop evaluation prior to the following procedure: Date of Surgery: 09/27/24 Surgical procedure being done: Left knee total revision Type of anesthesia: general anesthesia Lab needed: Yes including A1c EKG: Yes Surgeon's name: Dr Laureano Facility name: [facility] Surgeon's office number: [phone] Surgeon's office fax number: [phone] Contact name (person you spoke with): Stephanie [...] of anesthesia reaction: NO Chronic Medical Conditions: N5XP--RS elevated in office; currently on prednisone--typically well [...] use of insulin ([facility]) POCT A1C POCT glucose manually resulted 4. [...] use of insulin ([facility]) POCT GLUCOSE Routine 09/20/2024 9:02 AM EST Type 2 diabetes mellitus without complication, with long-term current use of insulin ([facility]) documented in this encounter Results * ECG 12 lead (09/20/2024 4:21 PM EST) Carri Cope FNP - 09/20/2024 4:21 PM EST NSR Carri VALENZUELA ECG ORDERABLES Final Result * (ABNORMAL) Prothrombin Time-INR (09/20/2024 9:54 AM EST) Prothrombin Time 10.3(L) 10.9 - 12.4 SEC [facility] INTERNATIONAL NORM RATIO 0.9 0.9 - 1.1 [facility] Comment:INTERNATIONAL NORMAL IZED RATIO (INR) [...] 9:54 AM EST 09/20/2024 2:18 PM EST [facility] LAB BLOOD ORDERABLES Final Re sult [facility] [address] [place] [address] [phone] * (ABNORMAL) POCT A1C (09/20/2024 9:03 AM EST) Hemoglobin A1C 7.9(A) 4.0 - 6.0 % QC Media Lot # Comment:[id number] Lot# Expiration Date Comment:05/12/2026 Blood 09/20/2024 9:03 AM EST Result [facility] POINT OF CARE TEST ENTER/EDIT ORDERABLES Final Result * (ABNORMAL) POCT glucose manually resulted (09/20/2024 9:02 AM EST) Glucose Blood, POC 256(A) 60 - 200 mg/dL QC Media Lot # Comment:[id number] Lot# Expiration Date Comment:01/25/2025 Blood Capillary blood specimen / Unknown 09/20/2024 9:02 AM EST Result [facility] POINT OF CARE TEST ENTER/EDIT ORDERABLES Final Result documented in this encounter Visit Diagnoses Diagnosis Chronic pain of left knee- Primary Preop examination Unspecified pre-operative examination Type 2 diabetes mellitus without complication, with long-term current use of insulin ([facility]) Essential hypertension Unspecified essential hypertension Mild persistent asthma without complication documented in this encounter Additional Health Concerns Assessment Noted Time PHQ-9 Depression Total Score: 3 03/03/20 24 11:33 AM EDT documented as of this encounter Care Teams Gambling Broker Relationship Specialty Start Date End Date Princess Min FNP [address] [place] [address] PCP - General Family Medicine 02/10/24 documented as of this encounter
== END 2024-10-19 13:24 | disposition home or self-care (01) ==
LOC: HO.XRAY 13:23
PROVIDERS: PCP Registered Nurse; Visit Provider Nurse Practitioner Family
DX: J45.909 Unspecified asthma, uncomplicated (principal)
CPT/HCPCS: 71046

== ENCOUNTER → 2024-10-19 13:27 | Outpatient (BNV) | payer MEDICAID, SELFPAY | PROVIDERS: PCP Registered Nurse; Visit Provider Specialist | DX: J45.909 Unspecified asthma, uncomplicated (principal) | CPT/HCPCS: 71046 ==

== ENCOUNTER 2024-12-08 13:49 | Outpatient (REF) | payer MEDICAID, SELFPAY ==
--- NOTE | ~2024-12-08 | CT_ITS ---
CLINICAL HISTORY: F17.210 - Nicotine dependence, cigarettes, uncomplicated CT chest without contrast Comparison: None Findings: The heart is normal size. The visualized thyroid and mediastinum are unremarkable. No consolidation or effusion. There is a calcified right upper lobe granuloma. The upper abdomen is unremarkable. The bones are intact. IMPRESSION: 1. Calcified right upper lobe granuloma. This document has been electronically signed by: Hung Warner MD on 12/09/2024 08:35:25
--- OUTSIDE RECORDS SUMMARY | 2024-12-08 13:52 | XMS_ITS | Encounter Summary ---
Author Organization [employer] Address 75 [facility] 7t [place] [address] Care Team Providers Care Chocolate Dipper Name Role Phone Princess Min Primary Care Provider [phone] Princess Min Primary Care Provider Princess Min Primary Care Provider [phone] Reason for Visit * Reason Onset Date Comments Appointment Request 11/20/2022 Encounter Details Date Type Department Care Team ([facility] st Contact Info) Description 11/20/2022 Telephone [facility] MED[facility] [address] [place] [address] Princess Min FNP [address] [place], [place] [phone] Appointment Request Social History Tobacco Use Types [...] to switching program. Please contact pt at [phone] Ukrainian Speaker documented in this encounter Plan of Treatment Upcoming Encounters Date Type Department Care Team ([facility] st Contact Info) Description 01/05/2025 11:00 AM EDT Office Visit [facility] [address] [place] [address] Princess Min FNP [address] [place] [address] documented as of this encounter Visit Diagnoses Not on filedocumented in this encounter Additional Health Concerns Assessment Noted Time PHQ-9 Depression Total Score: 24 023 9:25 AM EDT documented as of this encounter Care Teams Chocolate Dipper Relationship Specialty Start Date End Date Princess Min FNP [address] [place] [address] PCP - General Family Medicine 03/20/22 12/26/23 Princess Min FNP [address] [place] [address] PCP - General Family Medicine 01/21/24 02/03/24 Princess Min FNP [address] [place] [address] PCP - General Family Medicine 02/10/24 documented as of this encounter
--- OUTSIDE RECORDS SUMMARY | 2024-12-08 13:52 | XMS_ITS | Encounter Summary ---
Author Organization [employer] Address 75 [facility] 7t [place] [address] Care Team Providers Care Supervisor Rides Name Role Phone Princess Min Primary Care Provider [phone] Princess Min Primary Care Provider [phone] Princess Min Primary Care Provider [phone] Reason for Visit * Reason Onset Date Comments Durable Medical Equipment 11/19/2022 Encounter Details Date Type Department Care Team (Late st Contact Info) Description 11/19/2022 Telephone [facility] [address] [place] [address] Princess Min FNP [address] [place], [place] [phone] Durable Medical Equipment Social History Tobacco Use [...] before I couldprovide a referral number to [facility] to process DME. Patient understood and agreed with plan. * Telephone Encounter - Miracle Dickens - 12/08/2022 4:32 PM EDT Tc from pt regarding message below. Pt states [facility] is requesting a PA If any questions please contact pt at [phone] * Telephone Encounter - Barbie Montanez - 12/08/2022 12:34 PM EDT Scripts received from provider and faxed to [facility] as requested. Patient notified. * Telephone Encounter - Dean Alvarado - 12/08/2022 12:06 PM EDT Tc from pt requesting status update on script for commode and shower chair, states would like script to sent to [facility]. Please contact at [phone] * Telephone Encounter - Barbie Montanez - 11/19/2022 3:16 PM EDT Scripts for shower chair and commode generated for signature * Telephone Encounter - Jareth Cifuentes - 11/19/2022 2:55 PM EDT Tc from pt requesting a script for a commode also a script for a shower chair. To be faxed to [facility] Please contact pt at [phone] documented in this encounter Plan of Treatment Upcoming Encounters Date Type Department Care Team (Late st Contact Info) Description 01/05/2025 11:00 AM EDT Office Visit [facility]S [address] [place] [address] Princess Min FNP [address] [place] [address] documented as of this encounter Visit Diagnoses Not on filedocumented in this encounter Additional Health Concerns Assessment Noted Time PHQ-9 Depression Total Score: 023 9:25 AM EDT documented as of this encounter Care Teams Supervisor Rides Relationship Specialty Start Date End Date Princess Min FNP [address] [place] [address] PCP - General Family Medicine 03/20/22 12/26/23 Princess Min FNP [address] [place] [address] PCP - General Family Medicine 01/21/24 02/03/24 Princess Min FNP [address] [place] [address] PCP - General Family Medicine 02/10/24 documented as of this encounter
--- OUTSIDE RECORDS SUMMARY | 2024-12-08 13:52 | XMS_ITS | Encounter Summary ---
Author Organization [employer] Address 75 [facility] 7t [place] [address] Care Team Providers Care Research Microbiologist Name Role Phone Princess Min Primary Care Provider [phone] Princess Min Primary Care Provider [phone] Princess Min Primary Care Provider [phone] Reason for Visit * Reason Onset Date Comments Triage 10/19/2022 Encounter Details Date Type Department Care Team ([facility] Contact Info) Description 10/19/2022 Telephone [facility] [address] [place] [address] Princess Min FNP [address] [place], [place] [phone] Triage Social History Tobacco Use Types Packs/Day [...] Recorded In the last 10 days, have [place] been in contact with someone who was [...] EDT Triage call returned to patient via [employer] crate maker [id number]. Patient reports only mild wheezing using albuterol [...] accepted this outcome Please contact pt at [phone] Irish speaker documented in this encounter Plan of Treatment Upcoming Encounters Date Type Department Care Team ([facility] st Contact Info) Description 01/05/2025 11:00 AM EDT Office Visit [facility] MED & PEDS [address] [place] [address] Princess Min FNP [address] [place] [address] documented as of this encounter Visit Diagnoses Not on filedocumented in this encounter Care Teams Research Microbiologist Relationship Specialty Start Date End Date Princess Min FNP [address] [place] [address] PCP - General Family Medicine 03/20/22 12/26/23 Princess Min FNP [address] [place] [address] PCP - General Family Medicine 01/21/24 02/03/24 Princess Min FNP [address] [place] [address] PCP - General Family Medicine 02/10/24 documented as of this encounter
--- OUTSIDE RECORDS SUMMARY | 2024-12-08 13:52 | XMS_ITS | Encounter Summary ---
Author Organization [employer] Address 75 [facility] 7t [place] [address] Care Team Providers Care Polymerization Oven Tender Name Role Phone Princess Min Primary Care Provider [phone] Princess Min Primary Care Provider [phone] Princess Min Primary Care Provider [phone] Reason for Referral * Imaging (Routine) - Closed Specialty Diagnoses / Procedures Referred By Contnargis t Referred To Contact Diagnoses Encounter for screening mammogram for malignant neoplasm of breast Procedures BI Mammogram Screening Bilateral Princess Min FNP [address] [place] [address] Phone: tel: fax: [address] Phone: tel: fax: Referral ID Status Reason Start Date Expiration Date Visits Re quested Visits Authorized [id number] Closed 11/23/2022 05/22/2023 1 1 Reason for Visit * Reason Onset Date Comments Referral 11/20/2022 Encounter Details Date Type Department Care Team (Late st Contact Info) Description 11/20/2022 Telephone [facility] MEDICINE [address] [place] [address] Princess Min FNP [address] [place] [address] Referral Social History Tobacco Use Types Packs/Day [...] EDT Please fax order for mammo to [facility] and call to let Ms. Garcia know when completed. Thank you. * Telephone Encounter - Alissa Winkler - 11/20/2022 10:16 AM EDT Tc from pt requesting a mammogram referral . [facility] documented in this encounter Plan of Treatment Upcoming Encounters Date Type Department Care Team ([facility] st Contact Info) Description 01/05/2025 11:00 AM EDT Office Visit [facility] MED & PEDS [address] [place] [address] Princess Min FNP [address] [place] [address] Scheduled Orders Name Type Priority Associated Diagnoses [...] documented as of this encounter Care Teams Polymerization Oven Tender Relationship Specialty Start Date End Date Princess Min FNP [address] [place] [address] PCP - General Family Medicine 03/20/22 12/26/23 Princess Min FNP [address] [place] [address] PCP - General Family Medicine 01/21/24 02/03/24 Princess Min FNP [address] [place] [address] PCP - General Family Medicine 02/10/24 documented as of this encounter
--- OUTSIDE RECORDS SUMMARY | 2024-12-08 13:52 | XMS_ITS | Encounter Summary ---
Author Organization [employer] Address 75 [facility] 7t [place] [address] Care Team Providers Care Hand Bender Name Role Phone Princess Min Primary Care Provider [phone] Princess Min Primary Care Provider [phone] Princess Min Primary Care Provider [phone] Reason for Visit * Reason Onset Date Comments PT1 11/20/2022 Encounter Details Date Type Department Care Team (Late st Contact Info) Description 11/20/2022 Telephone [facility] MEDICINE [address] [place] [address] Princess Min FNP [address] [place], [place] [phone] PT1 Social History Tobacco Use Types Packs/Day [...] / denial letter via mail. PT-1 Request [id number] Authorized - [facility] [address] [address] * Telephone Encounter - Mayur Thomas - 11/20/2022 9:19 AM EDT Tc from pt requesting to Renew PT1 for Name of facility: n/a Specialty: All Future appts Location: [address] [place] [address] Date: n/a Time: n/a fax: n/a Phone: n/a wheelchair: n/a Marketing Communications Assistant: Yes (Adult) For all future appts documented in this encounter Plan of Treatment Upcoming Encounters Date Type Department Care Team ([facility] st Contact Info) Description 01/05/2025 11:00 AM EDT Office Visit [facility] MED & PEDS [address] [place] [address] Princess Min FNP [address] [place] [address] documented as of this encounter Visit Diagnoses Not on filedocumented in this encounter Additional Health Concerns Assessment Noted Time PHQ-9 Depression Total Score: 24 023 9:25 AM EDT documented as of this encounter Care Teams Hand Bender Relationship Specialty Start Date End Date Princess Min FNP [address] [place] [address] PCP - General Family Medicine 03/20/22 12/26/23 Princess Min FNP [address] [place] [address] PCP - General Family Medicine 01/21/24 02/03/24 Princess Min FNP [address] [place] [address] PCP - General Family Medicine 02/10/24 documented as of this encounter
--- OUTSIDE RECORDS SUMMARY | 2024-12-08 13:52 | XMS_ITS | Encounter Summary ---
Author Organization [employer] Address 75 [facility] 7t [place] [address] Care Team Providers Care Child Care Aide Name Role Phone Princess Min Primary Care Provider [phone] Princess Min Primary Care Provider [phone] Princess Min Primary Care Provider [phone] Reason for Visit * Reason Onset Date Comments Referral 11/20/2022 Encounter Details Date Type Department Care Team (Late st Contact Info) Description 11/20/2022 Telephone [facility] MEDICINE [address] [place] [address] Princess Min FNP [address] [place], [place] [phone] Referral Social History Tobacco Use Types Packs/Day [...] would like to see [facility] Deras [facility] because of her strong family hx of [...] Specialty: Seth D[facility] Location:[address] [place] [address] Dr Dorsey [address] [place] [address] Date&Time: n/a Certified Executive Chef: n/a Please call pt to clarify. documented in this encounter Plan of Treatment Upcoming Encounters Date Type Department Care Team (Late st Contact Info) Description 01/05/2025 11:00 AM EDT Office Visit [facility] MED & PEDS [address] [place], [place] [phone] Princess Min FNP [address] [place] [address] documented as of this encounter Visit Diagnoses Not on filedocumented in this encounter Additional Health Concerns Assessment Noted Time PHQ-9 Depression Total Score: 24 023 9:25 AM EDT documented as of this encounter Care Teams Child Care Aide Relationship Specialty Start Date End Date Princess Min FNP [address] [place] [address] PCP - General Family Medicine 03/20/22 12/26/23 Princess Min FNP [address] [place] [address] PCP - General Family Medicine 01/21/24 02/03/24 Princess Min FNP [address] [place] [address] PCP - General Family Medicine 02/10/24 documented as of this encounter
--- OUTSIDE RECORDS SUMMARY | 2024-12-08 13:53 | XMS_ITS | Encounter Summary ---
Author Organization [employer] Address 75 [facility] 7t [place] [address] Care Team Providers Care Machine Clerical Verifier Name Role Phone Princess Min Primary Care Provider [phone] Princess Min Primary Care Provider [phone] Reason for Visit * Reason Comments Med Change Request Encounter Details Date Type Department Care Team ([facility] st Contact Info) Description 12/30/2023 Refill [facility] MED & PEDS [address] [place], [place] [phone] Princess Min FNP [address] [place] [address] Social History Tobacco Use Types Packs/Day Years [...] [facility] [address] [place], [place] [phone] Princess Min FNP [address] [place] [address] documented as of this encounter Visit Diagnoses Not on filedocumented in this encounter Additional Health Concerns Assessment Noted Time PHQ-9 Depression Total Score: 10 023 10:39 AM EDT documented as of this encounter Care Teams Machine Clerical Verifier Relationship Specialty Start Date End Date Princess Min FNP [address] [place] [address] PCP - General Family Medicine 01/21/24 02/03/24 Princess Min FNP [address] [place] [address] PCP - General Family Medicine 02/10/24 documented as of this encounter
--- OUTSIDE RECORDS SUMMARY | 2024-12-08 13:53 | XMS_ITS | Encounter Summary ---
Author Organization [employer] Address 75 [facility] 7t [place] [address] Care Team Providers Care Furniture Associate Name Role Phone Princess Min Primary Care Provider [phone] Princess Min Primary Care Provider [phone] Princess Min Primary Care Provider [phone] Reason for Visit * Reason Comments Med Refill Encounter Details Date Type Department Care Team ([facility] st Contact Info) Description 06/14/2023 Refill [facility] MEDICINE [address] [place] [address] Princess Min FNP [address] [place], [place] [phone] Social History Tobacco Use Types Packs/Day Years [...] as of this encounter Plan of Treatment Upcoming Encounters Date Type Department Care Team (Late st Contact Info) Description 01/05/2025 11:00 AM EDT Office Visit [facility] MED & PEDS [address] [place] [address] Princess Min FNP [address] [place] [address] documented as of this encounter Visit Diagnoses Not on filedocumented in this encounter Additional Health Concerns Assessment Noted Time PHQ-9 Depression Total Score: 10 023 10:39 AM EDT documented as of this encounter Care Teams Furniture Associate Relationship Specialty Start Date End Date Princess Min FNP [address] [place] [address] PCP - General Family Medicine 03/20/22 12/26/23 Princess Min FNP [address] [place] [address] PCP - General Family Medicine 01/21/24 02/03/24 Princess Min FNP [address] [place] [address] PCP - General Family Medicine 02/10/24 documented as of this encounter
--- OUTSIDE RECORDS SUMMARY | 2024-12-08 13:53 | XMS_ITS | Encounter Summary ---
Author Organization [employer] Address 75 [facility] 7t [place] [address] Care Team Providers Care Airport Control Operator Name Role Phone Princess Min FOOD BEVERAGE MANAGER Primary Care Provider [phone] Reason for Visit * Reason Comments Med Refill Encounter Details Date Type Department Care Team ([facility] st Contact Info) Description 11/09/2024 Refill [facility] PEDS [address] [place], [place] [phone] Princess Min FNP [address] [place], [place] [phone] History of total knee arthroplasty, left Social [...] Description 01/05/2025 11:00 AM EDT Office Visit [facility] MED & PEDS [address] [place] [address] Princess Min FNP [address] [place] [address] documented as of this encounter Visit Diagnoses Diagnosis History of total knee arthroplasty, left documented in this encounter Additional Health Concerns Assessment Noted Time PHQ-9 Depression Total Score: 3 03/03/20 24 11:33 AM EDT documented as of this encounter Care Teams Airport Control Operator Relationship Specialty Start Date End Date Princess Min FNP [address] [place] [address] PCP - General Family Medicine 02/10/24 documented as of this encounter
--- OUTSIDE RECORDS SUMMARY | 2024-12-08 13:53 | XMS_ITS | Clinical Summary ---
Author Organization [employer] Address [address] [place] [address] Care Team Providers Care Group Manager Name Role Phone Princess Min CVIR TECH Primary Care Provider [phone] Allergies Active Allergy Reactions Criticality Noted Date Comments Duloxetine Dizziness 07/10/2021 Hydrocodone 05/12/2017 Ibuprofen 11/26/2021 Medications buPROPion XL (Wellbutrin XL) 300 MG 24 hr tablet Take 1 tablet by mouth at bed time. 022 Active clonazePAM (KlonoPIN) 0.5 MG tablet take 1 tablet in the AM and 2 tablets HS Active naloxone (Narcan) 4 mg/0.1 mL nasal spray Administer 0.1 mL into affected nostril(s). 021 Active furosemide (Lasix) 20 MG tabletIndications:Circuit Walker maria fernanda diastolic heart failure ([facility]) Take 2 tablets by mouth once daily in the morning 180 tablet 1 023 Active TRUEplus Lancets 33G miscIndications:Type 2 diabetes mellitus with hyperglycemia, unspecified whether custodial insulin use ([facility]) TEST BLOOD SUGAR TWICE DAILY 100 each 11 023 Active Respiratory Therapy Supplies (Nebulizer/Tubing/Mout hpiece) kit Use as needed with albuterol nebulizer solution 1 kit 023 Active amLODIPine (Norvasc) 5 MG tablet TAKE 1 TABLET BY MOUTH AT BEDTIME 023 Active fluticasone (Flonase) 50 MCG/ACT nasal sprayIndications:Aller gic rhinitis, unspecified seasonality, unspecified trigger USE 1-2 SPRAYS IN EACH NOSTRIL EVERY DAY NEEDED 48 g 023 Active Diclofenac Sodium 1 % gel APPLY 2 GRAMS TOPICALLY AFFECTED AREA(S) FOUR TIMES DAILY 200 g 3 023 Active loratadine (Claritin) 10 MG tabletIndications:Cecil rgic rhinitis due to other allergic trigger, unspecified seasonality TAKE 1 TABLET BY MOUTH EVERYDAY AT NOON 90 tablet 3 024 Active insulin pen needle (UltiGuard SafePack Pen Needle) 32G x 4 mm miscIndications:Type 2 diabetes mellitus with hyperglycemia, with long-term current use of insulin ([facility]) USE WITH INSULIN DIRECTED 100 each 11 024 Active metFORMIN (Glucophage) 500 MG tablet Take 2 tablets by mouth 2 times daily. 024 Active glucose blood (FREESTYLE LITE) test stripIndications:Type 2 diabetes mellitus without complication, with long-term current use of insulin ([facility]) Test blood sugar twice daily 100 strip 11 024 Active levothyroxine (Synthroid, Levoxyl) 150 MCG tabletIndications:Hypo thyroidism, unspecified type Take 1 tablet (150 mcg) by mouth before breakfast. 90 tablet 3 024 Active pantoprazole (ProtoNix) 20 MG EC tablet TAKE 1 TABLET BY MOUTH BEFORE BREAKFAST, DO NOT BREAK, CRUSH, DISSOLVE OR CHEW 90 tablet 3 024 Active montelukast (Singulair) 10 MG tablet TAKE 1 TABLET BY MOUTH AT BEDTIME 90 tablet 3 024 Active albuterol (Ventolin HFA) 108 (90 Base) MCG/ACT inhalerIndications:Mil d persistent asthma without complication INHALE 2 PUFFS BY MOUTH EVERY 4 TO 6 HOURS NEEDED 18 g 11 024 Active lidocaine (Lidoderm) 5 % patchIndications:Arthr itis of knee APPLY 2 PATCHES TOPICALLY TO AFFECTED AREA(S) OF KNEE LEFT AND HIP RIGHT NEEDED FOR PAIN. LEAVE ON FOR 12 HOURS AND OFF FOR 12 HOURS 60 patch 5 024 Active Invokana 300 MGIndications:Type 2 diabetes mellitus without complication, unspecified whether custodial insulin use ([facility]) TAKE 1 TABLET BY MOUTH EVERY MORNING 90 tablet 1 024 Active acetaminophen (Tylenol 8 Hour) 650 MG ER tabletIndications:Hist ory of total knee arthroplasty, left Take 1 tablet (650 mg) by mouth every 8 (eight) hours if needed (pain or fever). Do not crush, chew, or split. 100 tablet 2 024 2024 Active pravastatin (Pravachol) 40 MG tabletIndications:Pure hypercholesterolemia Take 1 tablet (40 mg) by mouth at bedtime. (Cholesterol) 90 tablet 3 Active insulin pen needle 32G x 4 mm miscIndications:Type 2 diabetes mellitus without complication, with long-term current use of insulin ([facility]) Use as instructed with Victoza injections 100 each 12 024 2024 Active cyanocobalamin (Vitamin B-12) 1000 MCG tabletIndications:Beto mando deficiency TAKE 1 TABLET BY MOUTH EVERYDAY AT NOON 90 tablet 3 024 Active irbesartan (Avapro) 300 MG tabletIndications:Prim chiquis hypertension TAKE 1 TABLET BY MOUTH EVERYDAY AT NOON 90 tablet 3 Active amitriptyline (Elavil) 50 MG tablet Take 1 tablet (50 mg) by mouth at bedtime. 90 tablet 1 025 Active topiramate (Topamax) 200 MG tabletIndications:Othe r migraine without status migrainosus, not intractable TAKE 1 TABLET BY MOUTH AT BEDTIME 90 tablet 1 025 Active ammonium lactate (Lac-Hydrin) 12 % lotion APPLY TOPICALLY TO THE AFFECTED AREA(S) OF THE HEELS EVERY DAY AT BEDTIME, THEN WEAR SOCKS TO BED 225 g Active albuterol (2.5 MG/3ML) 0.083% nebulizer solution Take 3 mL by nebulization every 6 (six) hours if needed for wheezing or shortness of breath. 75 mL 2 Active Mometasone Furoate (Asmanex HFA) 200 MCG/ACT aerosol INHALE 1 PUFF BY MOUTH TWICE DAILY. RINSE MOUTH AFTER USING. 13 g Active melatonin 5 MG tablet Take 1 tablet (5 mg) by mouth at bedtime. 30 tablet 11 025 2025 Active Lantus SoloStar 100 UNIT/ML penIndications:Type 2 diabetes mellitus with hyperglycemia, with long-term current use of insulin ([facility]) INJECT 28 UNITS SUBCUTANEOUSLY AT BEDTIME 15 mL 3 025 Active Humidifier miscIndications:Modera te persistent asthma without complication Use as needed 1 each 025 Active Dulaglutide (Trulicity) 1.5 MG/0.5ML solution auto-injectorIndicatio ns:Type 2 diabetes mellitus without complication, with long-term current use of insulin ([facility]) Inject 1.5 mg under the skin 1 (one) time per week. 2 mL 2 025 Active iilsbxjm-fpxoflafv-khd rocortisone (Cortisporin) 3.5-98594-8 otic suspensionIndications: Acute otitis externa of left ear, unspecified type Administer 3-4 drops into the left ear 4 times daily for 10 days. 10 mL 025 2024 acetaminophen (Tylenol Extra Strength) 500 MG tabletIndications:Acut e otitis externa of left ear, unspecified type Take 2 tablets (1,000 mg) by mouth every 8 (eight) hours if needed for mild pain. 30 tablet 025 2024 Active Problems Problem Noted Date Diagnosed Date History of total knee arthroplasty, left 024 Overview (04/02/2024): 06/09/23 at [facility] - Dr. Laureano Assessment & Plan (10/01/2024 7:35 PM EDT): - Persistent pain with (+) effusion s/p fall at home - XR Feb 2024 in [facility] ED demonstrated increased demineralization along the subjacent proximal tibia, particularly subjacent to the medial flange of the prosthesis with possibile slight medial settling. Large joint effusion. - Apr 2024: Synovasure aspiration left knee by Dr. Laureano. Elevated CRP/sed rate. Joint fluid sent for testing. - Initially scheduled for revision surgery 09/27/24, but not cleared by anaesthesia. Now pending Pulm clearance (referral through [facility] Ortho to [facility] Pulm) Assessment & Plan (05/28/2024 7:19 AM EST): - Persistent pain with (+) effusion s/p fall at home - XR Feb 2024 in [facility] ED demonstrated increased demineralization along the subjacent [...] use, fewer than expected pills, and multiple DRIVER TRAINEE cancellations and NCNS, continue with taper for [...] -Left TKA performed 06/09/[address] Laureano ([facility] Ortho) Assessment & Plan (03/04/2024 6:12 PM [...] although difficulties with insurance coverage. -Spoke with [facility] pharmacy, will attempt to change to generic albuterol to see if works better for pt Diastolic heart failure 02/03/2017 Overview (05/28/2024): -Continues on Irbestartan 300mg daily at bedtime, furosemide 40mg daily, on SGLT2 -[facility] - Dr. Calle -Pt denies SOB, swelling [...] recommendations reviewed -Pt to follow up with [facility] Endo Previous medications: - Ozempic (DC in [...] intolerance, MCKEON, or palpitations -Previously followed by [facility] Endo, pt will call to schedule f/u Lab Results Component Value Date TSH 0.33 04/05/2023 Insomnia 05/27/2016 Trigger finger 05/27/2016 Overview (05/28/2024): Followed by [facility] Ortho PRN Vitamin D deficiency 04/17/2014 Cobalamin deficiency 03/23/2014 Mixed anxiety and depressive disorder 10/06/2013 Assessment & Plan (05/28/2024 7:27 AM EST): -Following with psych team from [facility] -Continue with Wellbutrin 300mg daily, -Denies [...] Encounters Date Type Department Care Team Description 11/14/2024 Telephone [facility] MEDICINE [address] [place] [address] Princess Min FNP Nurse Triage; Appointment Request 11/09/2024 Refill [facility] PEDS [address] [place] [address] Princess Min FNP History of total knee arthroplasty, left 11/02/2024 9:45 AM EDT Office Visit [facility] [address] [place] [address] Haleigh Butcher MD Acute otitis externa of left ear, unspecified type (Primary Dx); Type 2 diabetes mellitus without complication, with long-term current use of insulin ([facility]) 11/02/2024 Travel 10/30/2024 Telephone [facility] MEDICINE [address] [place] [address] Princess Min FNP Med Refill 10/19/2024 Orders Only [facility] External Provider, [facility] 10/06/2024 Population Health Risk Score [facility] () Department [address] [place] [phone] Provider, Population Health Generic 10/03/2024 Refill [facility] MEDICINE [address] [place] [address] Princess Min FNP Type 2 diabetes mellitus without complication, with long-term current use of insulin (CMS/HCC) 09/29/2024 11:15 AM EST Office Visit [facility] PED[facility] [address] [place] [address] Princess Min FNP Moderate persistent asthma without complication (Primary Dx); Type 2 diabetes mellitus without complication, with long-term current use of insulin (CMS/HCC); History of total knee arthroplasty, left 09/29/2024 Travel 09/27/2024 Telephone [facility] MEDICINE [address] [place] [phone] Princess Min FNP Nurse Triage 09/27/2024 Orders Only GENERIC EXTERNAL DATA DEPARTMENT Provider, Generic External Data 09/21/2024 Orders Only GENERIC EXTERNAL DATA DEPARTMENT Provider, Generic External Data 09/21/2024 Refill [facility] [address] [place] [address] Princess Min FNP Type 2 diabetes mellitus with hyperglycemia, with long-term current use of insulin (CMS/HCC) 09/20/2024 9:00 AM EST Office Visit [facility] PEDS [address] [place] [address] Carri Sawant FNP Chronic pain of left knee (Primary Dx); Preop examination; Type 2 diabetes mellitus without complication, with long-term current use of insulin ([facility]); Essential hypertension; Mild persistent asthma without complication 09/20/2024 Travel 09/18/2024 10:15 AM EST Office Visit [facility] [address] [place] [address] Princess Min FNP Moderate persistent asthma without complication (Primary Dx); History of total knee arthroplasty, left; Encounter for screening mammogram for malignant neoplasm of breast; Healthcare maintenance; Routine health maintenance; Type 2 diabetes mellitus without complication, with long-term current use of insulin (CMS/HCC) 09/18/2024 Telephone [facility] MED [facility] PEDS [address] [place] [address] Princess Min FNP Durable Medical Equipment 09/18/2024 Travel 09/15/2024 1:20 PM EST Office Visit [facility] WALK-IN CENTER [address] [place] [phone] Alvaro Rocha MD Acute cough (Primary Dx); Wheezing; Nasal congestion; Moderate persistent asthma without complication 09/15/2024 Telephone [facility] MEDICINE [address] [place] [phone] Princess Min FNP Nurse Triage 09/15/2024 Refill [facility] MEDICINE [address] [place] [phone] Princess Min, CVIR TECH 09/14/2024 Refill [facility] MEDICINE [address] [place] [address] Mechelle Princess, CVIR TECH Other migraine without status migrainosus, not intractable 09/14/2024 Telephone [facility] MED & PEDS [address] [place] [address] Abdifatah Martinez MA Chart Prep 09/12/2024 Refill [facility] MEDICINE [address] [place] [address] Princess Min, CVIR TECH Major depressive disorder, recurrent, moderate (CMS/HCC); Anxiety disorder, unspecified 09/12/2024 Telephone [facility] MEDICINE [address] [place] [address] Princess Min FNP Durable Medical Equipment 09/11/2024 Refill [facility] [address] [place] [address] Mechelle Princess CVIR TECH Other migraine without status migrainosus, not intractable from Last 3 Months Immunizations Immunization Administration Dates Next Due Hep B, adult [...] Sign Reading Time Taken Comments Blood Pressure 145/78 11/02/2024 9:44 AM EDT Pulse 66 11/02/2024 9:44 AM EDT Temperature 36.6 ??C (97.8 ??F) 11/02/2024 9:44 AM ED T Respiratory Rate 20 11/02/2024 9:44 AM EDT Oxygen Saturation 97% 11/02/2024 9:44 AM EDT Inhaled Oxygen Concentration - - Weight 104 kg (229 lb) 11/02/2024 9:44 AM EDT Height 154.9 cm (5' 1 ) 11/02/2024 9:44 AM EDT Body Mass Index 43.27 11/02/2024 9:44 AM EDT Plan of Treatment Upcoming Encounters Date Type Department Care Team (Late st Contact Info) Description 01/05/2025 11:00 AM EDT Office Visit [facility] MED [facility] PEDS [address] [place] [address] Princess Min, CVIR TECH [address] [place] [address] Health Maintenance Due Date Last Done Comments [...] 03/26, 10/07/2021, Additional history exists Tobacco Screening 11/02/2025 11/02/2024 Colonoscopy 05/24/2027 05/24/2017 Colorectal Cancer Screening 05/24/2027 [...] patient's age to complete this topic Meningococcal B Vaccine Aged Out No l onger eligible based on patient's age to complete [...] Date/Time Associated Diagnosis Comments POCT GLUCOSE Routine 11/02/2024 10:42 AM EDT Type 2 diabetes mellitus without complication, with long-term current use of insulin ([facility]) XR CHEST 2 VIEWS Routine 10/20/2024 9:01 AM EDT POCT GLUCOSE Routine 09/29/2024 11:12 AM EST Type 2 diabetes mellitus without complication, with long-term current use of insulin ([facility]) HEMOGLOBIN + HEMATOCRIT Routine 09/27/2024 7:38 AM EST GLUCOSE, WHOLE BLOOD Routine 09/27/2024 7:35 AM EST TYPE AND SCREEN Routine 09/21/2024 10:15 AM EST ECG 12-LEAD Routine 09/20/2024 4:21 PM EST Preop examination PROTHROMBIN TIME-INR Routine 09/20/2024 9:54 AM EST Preop examination POCT GLYCATED HEMOGLOBIN, TOTAL Routine 09/20/2024 9:03 AM EST Type 2 diabetes mellitus without complication, with long-term current use of insulin ([facility]) POCT GLUCOSE Routine 09/20/2024 9:02 AM EST Type 2 diabetes mellitus without complication, with long-term current use of insulin ([facility]) ALBUMIN, RANDOM URINE W/CREATININE Routine 09/18/2024 11:31 [...] Routine 09/15/2024 1:18 PM EST Acute cough BI MAMMOGRAM SCREENING TOMOSYNTHESIS BILATERAL Routine 02/09/2023 11:07 AM EDT HM COLONOSCOPY Routine 05/24/2017 from Last 3 Months or Most Recently Relevant to Health Maintenance Results * (ABNORMAL) POCT Glucose (11/02/2024 10:42 AM EDT) Only the most recent of3 resultswithin the time period is included. Glucose Blood, POC 270(A) 60 - 200 mg/dL QC Media Lot # [id number] Lot# Expiration Date [id number] Comment:fasting Blood Capillary blood specimen / Unknown 11/02/2024 10:42 AM EDT us Haleigh Butcher MD POINT OF CARE TEST ENTER/ED IT ORDERABLES Final Result * XR Chest 2 Views (10/20/2024 9:01 AM EDT) Anatomical Region Laterality Modality Chest Radiographic Gina ging 10/20/2024 9:01 AM EDT Narrative 10/20/2024 9:02 AM EDT ? [facility] ?[address] ?[place], [place] [address] ?XRay Report ? Signed ? Patient: Jose Oliver,Argelia ?MR#: [id number] ?? [id number] ? : 1965 ?Acct:[id number] ? Age/Sex: 59 / F ?ADM Date: 10/19/24 ? Loc: HO.XRAY ? Attending Dr: Alycia Miguel COLLAR FOLDER OPERATOR ? Ordering Physician: Alycia Miguel NP ?? Date of Service: 10/19/24 ?? Procedure(s): XR chest 2V ?? Accession Number(s): [id number] ? cc: Princess Min CVIR TECH; Alycia Miguel COLLAR FOLDER OPERATOR ? CLINICAL HISTORY: J45.909 - Unspecified asthma, uncomplicated ? 2 view chest x-ray ? Comparison: None ? Findings: ?? The lungs are clear. ?? Normal size heart. ?? No acute fracture. ? IMPRESSION: ?? 1. No acute findings. ? This document has been electronically signed by: Hung Warner MD on ?? 10/20/2024 09:01:47 ? Dictated By: ?Hung Warner MD ? Signed By: ?<Electronically signed by Hung Warner MD in OV> ?10/20/24 0902 ? DD/ 0901 ? TD/TT: 10/20/24 0901 ? [employer]: ? Procedure Note Sherin Webb - 10/20/[address] [address] XRay Report Signed Patient: Nini Messina#: [id number] : 1965Acct:[id number] Age/Sex: 59 / FADM Date: 10/19/24 Loc: HO.XRAY Attending Dr: Alycia Miguel NP Ordering Physician: Alycia Miguel NP Date of Service: 10/19/24 Procedure(s): XR chest 2V Accession Number(s): [id number] cc: Princess Min CVIR TECH; Alycia Miguel NP CLINICAL HISTORY: J45.909 - Unspecified asthma, uncomplicated 2 view chest x-ray Comparison: None Findings: The lungs are clear. Normal size heart. No acute fracture. IMPRESSION: 1. No acute findings. This document has been electronically signed by: Hung Warner MD on 10/20/2024 09:01:47 Dictated By: Hung Warner MD Signed By: <Electronically signed by Hung Warner MD in OV> 10/20/24901 DD/ 0 TD/TT: 10/20/24900 [employer]: [facility] External Provider IMG XR PROCEDURES Final Result * Hemoglobin and Hematocrit (09/27/2024 7:38 AM EST) Hemoglobin 13.1 12.0 - 16.0 g/dl [facility] Hematocrit 38.4 37.0 - 47.0 % [facility] 09/27/2024 7:38 AM EST 09/27/2024 7:48 AM EST Generic External Data Provider LAB BLOOD ORDERAB LES Final Result [facility] [address] [place] [phone] * (ABNORMAL) Glucose, Whole Blood (09/27/2024 7:35 AM EST) Glucose, Whole Blood 318(H) 60 - 115 mg/dL [facility] Comment:METER #: [id number] 09/27/2024 7:35 AM EST 09/27/2024 7:55 AM EST Generic External Data Provider LAB BLOOD ORDERAB LES Final Result Performing Organization Address [facility] Co de Phone Number [facility] [address] [place] [address] [phone] * Type and screen (09/21/2024 10:15 AM EST) Blood Type OP [facility] Antibody Screen NEGATIVE [facility] 09/21/2024 10:1 5 AM EST 09/21/2024 10:33 AM EST Narrative [facility] - 09/21/2024 11:18 AM EST WITNESSED BY FRANCIAING:Call Blood Bank (ext. [phone]) to band patient on admission.Type and Screen in effect until 2300 on [id number] expiration changed by SRI on 09/21/24Reason: PAT SPEC Generic External Data Provider LAB BLOOD BANK TE ST ORDERABLES Final Result Performing Organization Address [facility] Co de Phone Number [facility] [address] [place] [phone] * ECG 12 lead (09/20/2024 4:21 PM EST) [facility] - 09/20/2024 4:21 PM EST NSR Result [facility] ECG ORDERABLES Final Result * (ABNORMAL) Prothrombin Time-INR (09/20/2024 9:54 AM EST) Prothrombin Time 10.3(L) 10.9 - 12.4 SEC [facility] INTERNATIONAL NORM RATIO 0.9 0.9 - 1.1 [facility] Comment:INTERNATIONAL NORMAL IZED RATIO [...] 9:54 AM EST 09/20/2024 2:18 PM EST [facility] LAB BLOOD ORDERABLES Final Re sult Performing Organization Address [facility] Co de Phone Number [facility] [address] [place] [phone] * (ABNORMAL) POCT A1C (09/20/2024 9:03 AM EST) Hemoglobin A1C 7.9(A) 4.0 - 6.0 % QC Media Lot # Comment:[id number] Lot# Expiration Date Comment:05/12/2026 Blood 09/20/2024 9:03 AM EST [facility] POINT OF CARE TEST ENTER/EDIT ORDERABLES Final Result * Albumin, Random Urine W/Creatinine (09/18/2024 11:31 AM EST) Creatinine, Urine 65.49 mg/dL [facility] Microalbumin Urine 8.0 mg/L [facility] Microalbum Creatinine Ratio Ur 12.2 <30 ug/mg cr [facility] Comment:Albumin/Creatinine R atio Reference Ranges: Normal: < 30 ug/mg creatinine Microalbuminuria: 30 - 300 ug/mg creatinineClinical Albuminuria: > 300 ug/mg creatinine Urine 09/18/2024 11:3 1 AM EST 09/18/2024 2:41 PM EST Princess Min [facility] LAB URINE ORDERABLES Final Res ult Performing Organization Address [facility] Co de Phone Number [facility] [address] [place] [phone] * Hepatitis C Viral RNA, Quantitative, Real-Time PCR (09/18/2024 11:22 AM EST) Hepatitis C Viral Load <15 NOT DETECTED NOT DETECTED IU/mL [facility] HCV Log PCR <1.18 NOT DETECTED NOT DETECTED Log IU/mL [facility] Comment:For additional infor gillian, please refer [email or web address](This link is being provided for informational/educational purposes only.)THIS TEST WAS PERFORMED AT:[employer] [place] [phone] GARCIA MD Blood 09/18/2024 11:2 2 AM EST 09/18/2024 2:41 PM EST us Princess Min CVIR TECH LAB BLOOD ORDERABLES Final Res ult [facility] [address] [place] [phone] [phone] * (ABNORMAL) CBC auto differential (09/18/2024 11:22 AM EST) [facility] White Blood Count 8.1 4.8 - 10.8 X10*3/uL [facility] Red Blood Count 4.26 4.20 - 5.50 X10*6/uL [facility] Hemoglobin 12.9 12.0 - 16.0 g/dl [facility] Hematocrit 37.8 37.0 - 47.0 % [facility] Mean Corpuscular Volume 88.7 80.0 - 98.0 fL [facility] Mean Corpuscular Hemoglobin 30.3 27.0 - 33.0 pg [facility] Mean Corpuscular HGB Conc 34.1 31.0 - 35.0 g/dl [facility] Red Cell Distribution Width 12.9 11.0 - 16.0 % [facility] Platelet Count 247 160 - 400 X10*3/uL [facility] Mean Platelet Volume 10.7 9.4 - 12.3 fL [facility] Neutrophils Percent Auto 67.4 45 - 73 % [facility] Imm Gran Pct Auto 1.7(H) 0.0 - 0.4 % [facility] Lymphocytes Percent Auto 24.5 20 - 40 % [facility] Monocytes Percent Auto 5.3 2 - 11 % [facility] Eosinophils Percent Auto 0.6 0 - 4 % [facility] Basophils Percent Auto 0.5 0 - 2 % [facility] NRBC Pct Auto 0.0 0.0 - 0.2 /100WBC [facility] Neutrophils Absolute Auto 5.5 2.0 - 8.3 x10*3/uL [facility] Imm Gran Abs Auto 0.14(H) 0.00 - 0.03 X10*3/uL [facility] Lymphocytes Absolute Auto 2.0 1.2 - 4.9 X10*3/uL [facility] Monocytes Absolute Auto 0.4 0.1 - 1.2 X10*3/uL [facility] Eosinophils Absolute Auto 0.1 0.0 - 0.4 X10*3/uL [facility] Basophils Absolute Auto 0.0 0.0 - 0.2 X10*3/uL [facility] NRBC Abs Auto 0.000 0.0 - 0.012 X10*3/uL [facility] Blood Venous blood specimen / Unknown 09/18/2024 11:22 AM EST 09/18/2024 2:41 PM EST us Princess Min CVIR TECH LAB BLOOD ORDERABLES Final Res ult [facility] [address] [place] [phone] * RPR (Monitor) with Reflex to??Titer (09/18/2024 11:22 AM EST) RPR (Monitor) w/Refl Titer NON-REACTI VE NON-REACT MOOSE [facility] Comment:THIS TEST WAS PERFOR MED AT:[employer] [place] [phone] GARCIA MD Rapid Plasma Reagin Ab Titer TNP [facility] Blood Venous blood specimen / Unknown 09/18/2024 11:22 AM EST 09/18/2024 2:41 PM EST Princess Min [facility] BLOOD ORDERABLES Final Res ult Performing Organization Address [facility]/ZIP Co de Phone Number [facility] [address] [place] [address] [phone] * HIV-1/2 Antigen and Antibodies, Fourth Generation, with Reflexes (09/18/2024 11:22 AM EST) HIV AB/AG Nonreactive Nonreactive [facility] Comment:HIV-1 p24 Ag and/or HIV-1/HIV-2 Ab not detected.A test result that is nonreactive does not exclude thepossibility of exposure to or infection with HIV-1 and/orHIV-2. Nonreactive results in this assay for individualswith prior exposure to HIV-1 and/or HIV-2 may be due toantigen and antibody levels that are below the limit ofdetection of this assay.The [employer] HIV Ag/Ab Combo assay result andsupplemental assay results should be interpreted inconjunction with the patient's clinical presentation,history and other laboratory results. If the results areinconsistent with clinical evidence, additional testing issuggested to confirm the result. Blood Venous blood specimen / Unknown 09/18/2024 11:22 AM EST 09/18/2024 2:41 PM EST Princess Min [facility] BLOOD ORDERABLES Final Res ult Performing Organization Address [facility]/ZIP Co de Phone Number [facility] [address] [place] [phone] * TSH with Reflex to Free T4 (09/18/2024 11:02 AM EST) TSH reflex Free T4 0.97 0.32 - 4.0 uIU/mL [facility] Blood 09/18/2024 11:0 2 AM EST 09/18/2024 2:41 PM EST Princess Min [facility] BLOOD ORDERABLES Final Res ult Performing Organization Address [facility] Co de Phone Number [facility] [address] [place] [phone] * Lipid Panel, Standard (09/18/2024 11:02 AM EST) Triglycerides 136 <150 mg/dL [facility] Comment:Desirable Triglyceri de: less than 150 mg/dLBorderline High Triglyceride 150-199 mg/dLHigh Triglyceride: 200-499 mg/dLVery High Triglyceride: greater than or equal to 5OO mg/dL Cholesterol 156 <200 mg/dL [facility] Comment:Desirable Cholestero l: less than 200 mg/dLBorderline High Cholesterol: 200-239 mg/dLHigh Cholesterol: greater than 239 mg/dL LDL Cholesterol Calculated 75 <100 mg/dL [facility] Comment:Desirable LDL: less than 100 mg/dLNear Optimal/Above Optimal LDL: 110- 129 mg/dLBorderline High LDL: 130-159 mg/dLHigh LDL: 160-189 mg/dLVery High LDL: greater than or equal to 190 mg/dL HDL Cholesterol 54 >40 mg/dL [facility] Comment:Desirable HDL: great er than 40 mg/dL Note: This HDL assay may give artificially low results in patients with liver disease. Blood Venous blood specimen / Unknown 09/18/2024 11:02 AM EST 09/18/2024 2:41 PM EST us Princess Min [facility] BLOOD ORDERABLES Final Res ult Performing Organization Address [facility]/ZIP Co de Phone Number [facility] [address] [place] [address] [phone] * (ABNORMAL) Comprehensive Metabolic Panel (09/18/2024 11:02 AM EST) Sodium 139 135 - 145 mmol/L [facility] Potassium 4.0 3.3 - 5.1 mmol/L [facility] Comment:Slight Hemolysis.Int erpret result with caution. Chloride 106 96 - 108 mmol/L [facility] Carbon Dioxide 24 22 - 29 mmol/L [facility] Anion Gap 13 12 - 20 [facility] Urea Nitrogen (BUN) 17(H) 9 - 16 mg/dL [facility] Creatinine, Serum 0.89 0.5 - 1.4 mg/dL [facility] Estimated Glomerular Filt Rate >60 [facility] Comment:Chronic Kidney Disea se: Estimated GFR < 60 mL/min/1.02g0Qnxbns Kidney Disease: Estimated GFR < 15 mL/min/1.73m2 Glucose 255(H) 60 - 115 mg/dL [facility] Calcium 9.0 8.4 - 10.2 mg/dL [facility] Bilirubin, Total 0.4 0.0 - 1.0 mg/dL [facility] Aspartate Amino Transferase 17 5 - 31 U/L [facility] Comment:Slight Hemolysis.Int erpret result with caution. Alanine Aminotransferase 27 0 - 31 U/L [facility] Total Protein 7.5 6.5 - 8.0 g/dL [facility] Albumin Level 3.9 3.5 - 5.0 g/dL [facility] Alkaline Phosphatase 104 39 - 117 U/L [facility] Blood Venous blood specimen / Unknown 09/18/2024 11:02 AM EST 09/18/2024 2:41 PM EST Princess Min CVIR TECH LAB BLOOD ORDERABLES Final Res ult [facility] [address], [place] [phone] * Influenza B (ID NOW Rapid Molecular) (09/15/2024 1:18 PM EST) Influenza B Negative Negative, Indeterminate [facility] Swab 09/15/2024 1:18 PM EST Alvaro Rocha MD POINT OF CARE TEST ENTER/EDIT OR DERABLES Final Result Performing Organization Address [facility] de Phone Number [facility] [address] [place] [phone] * Influenza A (ID NOW Rapid Molecular) (09/15/2024 1:18 PM EST) Influenza A Negative Negative, Indeterminate [facility] Swab 09/15/2024 1:18 PM EST Alvaro Rocha MD POINT OF CARE TEST ENTER/EDIT OR DERABLES Final Result Performing Organization Address [facility] de Phone Number [facility] [address] [place] [phone] * POCT Rapid COVID Ag (09/15/2024 1:18 PM EST) Rapid COVID Ag Negative [facility] Swab 09/15/2024 1:18 PM EST us Alvaro Rocha MD POINT OF CARE TEST ENTER/EDIT OR DERABLES Final Result Performing Organization Address [facility] de Phone Number [facility] [address] [place] [phone] * BI Mammogram Screening Tomosynthesis Bilateral (02/09/2023 11:07 AM EDT) Anatomical Region Laterality Modality Breast Bilateral Mammography 02/09/2023 11:0 7 AM EDT Narrative 03/05/2023 6:25 AM EDT ? [facility] ? [address] ?[place] [address] ? Mammography Report ? Signed ? Patient: Jose Oliver,Argelia ?MR#: [id number] ?? [id number] ? : 1965 ?Acct:[id number] ? Age/Sex: 57 / F ?ADM Date: 07/18/23 ? Loc: HO.MAMMO ? Attending Dr: Princess Min CVIR TECH ? Ordering Physician: Princess Min CVIR TECH ?Results: ? Date of Service: 02/09/23 ?Follow Up: ? Procedure(s): MM tomosynthesis screening BI ?? Accession Number(s): [id number] ? cc: Princess Min CVIR TECH ? EXAMINATION: ?? MM SCREENING DIGITAL BREAST TOMOSYNTHESIS, BILATERAL ? CLINICAL INFORMATION: ? Screening. Asymptomatic. ? The lifetime risk of breast cancer based on the Tyrer-Cuzick Model is ?? 7.6%. ? COMPARISON: ?? Mammography: This study is compared with prior exams dating back to ?? 2016. ? TECHNIQUE: ?? Digital breast tomosynthesis is [...] 03/05/23622 ? DD/ 1107 ? TD/TT: ? Painter [employer] Car: ? Procedure Note Donoweninterpreter, Image - 03/05/2023 [facility] [address] [place] [address] Mammography Report Signed Patient: Nini Messina#: [id number] : 1965Acct:[id number] Age/Sex: 57 / FADM Date: 02/09/23 Loc: HO.MAMMO Attending Dr: Princess Min CVIR TECH Ordering Physician: Princess Min FNPResults: Date of Service: 02/09/23Follow Up: Procedure(s): MM tomosynthesis screening BI Accession Number(s): [id number] cc: Princess Min CVIR TECH EXAMINATION: MM SCREENING DIGITAL BREAST TOMOSYNTHESIS, BILATERAL [...] in OV> 03/05/23 0623 DD/ 1107 TD/TT: Painter Railroad Car: Princess Phalen CVIR TECH IMG BI PROCEDURES Final Result * Hm Colonoscopy (05/24/2017) Colonoscopy Normal Normal Historical Provider HEALTH MAINTENANCE Final Result from Last 3 Months or Most Recently Relevant to Health Maintenance Insurance [facility] C3 DENTAL-[facility] MEDICAID STAND ADULT Care Teams Group Manager Relationship Specialty Start Date End Date Princess Min FNP [address] [place], [place] [address] [address] PCP - General Family Medicine 02/10/24
--- OUTSIDE RECORDS SUMMARY | 2024-12-08 13:53 | XMS_ITS | Encounter Summary ---
Author Organization [employer] Address [address] [facility] 7t [place] [address] Care Team Providers Care Senior Information Developer Name Role Phone Princess Min Primary Care Provider [phone] Princess Min Primary Care Provider [phone] Princess Min Primary Care Provider [phone] Reason for Visit * Reason Comments Med Refill Encounter Details Date Type Department Care Team (Late Contact Info) Description 08/07/2022 Refill [facility] MEDICINE [address] [place] [address] Princess Min FNP [address] [place], [place] [phone] Cervical spondylosis Social History Tobacco Use Types [...] Encounters Date Type Department Care Team (Late Contact Info) Description 01/05/2025 11:00 AM EDT Office Visit [facility] CHC MED & PEDS [address] [place], [place] [phone] Princess Min FNP [address] [place] [address] documented as of this encounter Visit Diagnoses Diagnosis Cervical spondylosis Cervical spondylosis without myelopathy documented in this encounter Care Teams Senior Information Developer Relationship Specialty Start Date End Date Princess Min FNP [address] [place] [address] PCP - General Family Medicine 03/20/22 12/26/23 Princess Min FNP [address] [place] [address] PCP - General Family Medicine 01/21/24 02/03/24 Princess Min FNP [address] [place] [address] PCP - General Family Medicine 02/10/24 documented as of this encounter
--- OUTSIDE RECORDS SUMMARY | 2024-12-08 13:53 | XMS_ITS | Encounter Summary ---
Author Organization [employer] Address 75 [facility] 7t [place] [address] Care Team Providers Care Ice Hockey Coach Name Role Phone Princess Min Primary Care Provider [phone] Princess Min Primary Care Provider [phone] Princess Min Primary Care Provider [phone] Reason for Visit * Reason Onset Date Comments Durable Medical Equipment 10/27/2022 Encounter Details Date Type Department Care Team (Late st Contact Info) Description 10/27/2022 Telephone [facility] MEDICINE [address] [place] [address] Princess Min FNP [address] [place], [place] [phone] Durable Medical Equipment Social History Tobacco Use [...] shower head, script to be send to [facility] emergency department. documented in this encounter Plan of Treatment Upcoming Encounters Date Type Department Care Team (Late st Contact Info) Description 01/05/2025 11:00 AM EDT Office Visit [facility] MED & PEDS [address] [place], [place] [phone] Princess Min FNP [address] [place] [address] documented as of this encounter Visit Diagnoses Not on filedocumented in this encounter Care Teams Ice Hockey Coach Relationship Specialty Start Date End Date Princess Min FNP [address] [place] [address] PCP - General Family Medicine 03/20/22 12/26/23 Princess Min FNP [address] [place] [address] PCP - General Family Medicine 01/21/24 02/03/24 Princess Min FNP [address] [place] [address] PCP - General Family Medicine 02/10/24 documented as of this encounter
--- OUTSIDE RECORDS SUMMARY | 2024-12-08 13:53 | XMS_ITS | Encounter Summary ---
Author Organization [employer] Address [address] [facility] 7t [place] [address] Care Team Providers Care Cork Floor Installer Name Role Phone Princess Min Primary Care Provider [phone] Princess Min Primary Care Provider [phone] Princess Min Primary Care Provider [phone] Reason for Visit * Reason Onset Date Comments Appointment Request 08/03/2022 Encounter Details Date Type Department Care Team ([facility] st Contact Info) Description 08/03/2022 Telephone [facility] MEDICINE [address] [place] [address] Princess Min FNP [address] [place], [place] [phone] Appointment Request Social History Tobacco Use Types [...] 12:26 PM EST Returned pt call via P/I#[id number], pt cancelled todays INSTITUTION DIRECTOR RV appt scheduled 11am. Pt previously cancelled 12/22/22 IN[facility] DIRECT[facility] RV appt. Attempted to reschedule appt, offered 3 alternate times. 08/04/22, pt stated she will be in [place] for her sisters and back by 5pm. Offered her a time on 08/05/22, pt stated she doesn't know when she will be back. Offered her an appt today, 1 hour from now, beforeshe leaves for [place]. She said she will be long on her way to [place]. Reminded pt that she must attend these appointments to continue to receive her oxycodone script and that per her INSTITUTION DIRECTOR agreement she must come in within 24 hours for a random urine. Pt stated she will call back when she is available to reschedule. Will FYI PCP. * Telephone Encounter - Jareth Cifuentes - 08/03/2022 11:54 AM EST Tc from pt requesting to r/s appt 08/03/22 ( INSTITUTION DIRECTOR RV) pt states not able to come due to a lost in the family. Please contact pt at [phone] documented in this encounter Plan of Treatment Upcoming Encounters Date Type Department Care Team (Late st Contact Info) Description 01/05/2025 11:00 AM EDT Office Visit [facility] MED & PEDS [address] [place] [address] Princess Min FNP [address] [place] [address] documented as of this encounter Visit Diagnoses Not on filedocumented in this encounter Care Teams Cork Floor Installer Relationship Specialty Start Date End Date Princess Min FNP [address] [place] [address] PCP - General Family Medicine 03/20/22 12/26/23 Princess Min FNP [address] [place] [address] PCP - General Family Medicine 01/21/24 02/03/24 Princess Min FNP [address] [place] [address] PCP - General Family Medicine 02/10/24 documented as of this encounter
--- OUTSIDE RECORDS SUMMARY | 2024-12-08 13:53 | XMS_ITS | Encounter Summary ---
Author Organization [employer] Address [address] [facility] 7t [place] [address] Care Team Providers Care Managing Consultant Name Role Phone Princess Min Primary Care Provider [phone] Reason for Visit * Reason Comments Med Refill Encounter Details Date Type Department Care Team ([facility] st Contact Info) Description 09/15/2024 Refill [facility] MEDICINE [address] [place] [address] Princess Min FNP [address] [place], [place] [phone] Social History Tobacco Use Types Packs/Day Years [...] Description 01/05/2025 11:00 AM EDT Office Visit [facility] MED & PEDS [address] [place] [address] Princess Min FNP [address] [place] [address] documented as of this encounter Visit Diagnoses Not on filedocumented in this encounter Additional Health Concerns Assessment Noted Time PHQ-9 Depression Total Score: 3 03/03/20 24 11:33 AM EDT documented as of this encounter Care Teams Managing Consultant Relationship Specialty Start Date End Date Princess Min FNP [address] [place] [address] PCP - General Family Medicine 02/10/24 documented as of this encounter
--- OUTSIDE RECORDS SUMMARY | 2024-12-08 13:53 | XMS_ITS | Encounter Summary ---
Author Organization [employer] Address 75 [facility] 7t [place] [address] Care Team Providers Care Photographer Portrait Name Role Phone Princess Min PANEL MACHINE SETTER Primary Care Provider [phone] Reason for Visit * Reason Comments Med Refill Encounter Details Date Type Department Care Team ([facility] st Contact Info) Description 07/17/2024 Refill [facility] CHC MED & PEDS [address] [place], [place] [phone] Princess Min FNP [address] [place], [place] [phone] Acute otitis externa of left ear, unspecified [...] 01/05/2025 11:00 AM EDT Office Visit [facility] MED & PEDS [address] [place] [address] Princess Min FNP [address] [place] [address] documented as of this encounter Visit Diagnoses Diagnosis Acute otitis externa of left ear, unspecified type Intermittent diarrhea documented in this encounter Additional Health Concerns Assessment Noted Time PHQ-9 Depression Total Score: 3 03/03/20 24 11:33 AM EDT documented as of this encounter Care Teams Photographer Portrait Relationship Specialty Start Date End Date Princess Min FNP [address] [place] [address] PCP - General Family Medicine 02/10/24 documented as of this encounter
--- OUTSIDE RECORDS SUMMARY | 2024-12-08 13:53 | XMS_ITS | Encounter Summary ---
Author Organization [employer] Address [address] [facility] [address]t h Floor [place] [phone] Care Team Providers Care Trading Analyst Name Role Phone Princess Min Primary Care Provider [phone] Reason for Visit * Reason Onset Date Comments Durable Medical Equipment 09/12/2024 Encounter Details Date Type Department Care Team (Late st Contact Info) Description 09/12/2024 Telephone [facility] MEDICINE [address] [place] [address] Princess Min FNP [address] [place], [place] [phone] Durable Medical Equipment Social History Tobacco Use [...] 01/05/2025 11:00 AM EDT Office Visit [facility] MED & PEDS [address] [place] [address] Princess Min FNP [address] [place] [address] documented as of this encounter Visit Diagnoses Not on filedocumented in this encounter Additional Health Concerns Assessment Noted Time PHQ-9 Depression Total Score: 3 03/03/20 24 11:33 AM EDT documented as of this encounter Care Teams Trading Analyst Relationship Specialty Start Date End Date Princess Min FNP [address] [place] [address] PCP - General Family Medicine 02/10/24 documented as of this encounter
--- OUTSIDE RECORDS SUMMARY | 2024-12-08 13:53 | XMS_ITS | Encounter Summary ---
Author Organization [employer] Address [address] [facility] [address] 7t [place] [address] Care Team Providers Care Mailroom Courier Name Role Phone Princess Min Primary Care Provider [phone] Princess Min Primary Care Provider [phone] Encounter Details Date Type Department Care Team (Late st Contact Info) Description 12/28/2023 Telephone [facility] MEDICINE [address] [place] [address] Princess Min FNP [address] [place], [place] [phone] Social History Tobacco Use Types Packs/Day Years [...] [facility] MED & PEDS [address] [place] [address] Princess Min FNP [address] [place] [address] documented as of this encounter Visit Diagnoses Not on filedocumented in this encounter Additional Health Concerns Assessment Noted Time PHQ-9 Depression Total Score: 10 023 10:39 AM EDT documented as of this encounter Care Teams Mailroom Courier Relationship Specialty Start Date End Date Princess Min FNP [address] [place] [address] PCP - General Family Medicine 01/21/24 02/03/24 Princess Min FNP [address] [place] [address] PCP - General Family Medicine 02/10/24 documented as of this encounter
--- OUTSIDE RECORDS SUMMARY | 2024-12-08 13:53 | XMS_ITS | Encounter Summary ---
Author Organization [employer] Address 75 [facility] 7t [place] [address] Care Team Providers Care Reimbursement Coordinator Name Role Phone Princess Min Primary Care Provider [phone] Princess Min Primary Care Provider [phone] Reason for Visit * Reason Onset Date Comments New Med Request 02/03/2024 Encounter Details Date Type Department Care Team ([facility] st Contact Info) Description 02/03/[address] [facility] MEDICINE [address] [place] [address] Princess Min FNP [address] [place], [place] [phone] New Med Request Social History Tobacco Use [...] Description 01/05/2025 11:00 AM EDT Office Visit [facility] MED & PEDS [address] [place] [address] Princess Min FNP [address] [place] [address] documented as of this encounter Visit Diagnoses Not on filedocumented in this encounter Additional Health Concerns Assessment Noted Time PHQ-9 Depression Total Score: 10 023 10:39 AM EDT documented as of this encounter Care Teams Reimbursement Coordinator Relationship Specialty Start Date End Date Princess Min FNP [address] [place] [address] PCP - General Family Medicine 01/21/24 02/03/24 Princess Min FNP [address] [place] [address] PCP - General Family Medicine 02/10/24 documented as of this encounter
--- OUTSIDE RECORDS SUMMARY | 2024-12-08 13:53 | XMS_ITS | Encounter Summary ---
Author Organization [employer] Address [address] [facility] 7t h Floor [address] Care Team Providers Care Wood Room Hand Name Role Phone Princess Min Primary Care Provider [phone] Princess Min Primary Care Provider [phone] Reason for Visit * Reason Comments Med Change Request Encounter Details Date Type Department Care Team ([facility] st Contact Info) Description 12/28/2023 Refill [facility] CHC MED & PEDS [address] [place], [place] [phone] rPincess Min FNP [address] [place] [address] Social History Tobacco Use Types Packs/Day Years [...] Description 01/05/2025 11:00 AM EDT Office Visit [facility] MED & PEDS [address] [place], [place] [phone] Princess Min FNP [address] [place] [address] documented as of this encounter Visit Diagnoses Not on filedocumented in this encounter Additional Health Concerns Assessment Noted Time PHQ-9 Depression Total Score: 10 023 10:39 AM EDT documented as of this encounter Care Teams Wood Room Hand Relationship Specialty Start Date End Date Princess Min FNP [address] [place] [address] PCP - General Family Medicine 01/21/24 02/03/24 Princess Min FNP [address] [place] [address] PCP - General Family Medicine 02/10/24 documented as of this encounter
--- OUTSIDE RECORDS SUMMARY | 2024-12-08 13:53 | XMS_ITS | Patient Health Record ---
Author Organization [facility] Address [address] [place] [address] Care Team Providers Care General Education Professor Name Role Phone OMERO SOTO MD Primary Care Provider Aidan Fried Jr Unavailable Reason For Referral Referring Provider First Name OMERO Referring Provider Last Name CHARLES Referred Organization [facility] Referred Provider Aidan Silva Jr Referred Address [address] [facility] [address],[place], [place],[address], Referred Provider Specialty Gastroentero logy Referral Priority Routine Encounters Encounter Location Date Provider Diagnosis [facility] [address] [facility] [address] [place] [address] 06/21/2024 Aidan Silva Jr Plan Of Treatment No Information Insurance Providers Payer Name Payer Address Payer Phone Subscriber Number Group Number Insured Name Patient Relationship to Insured Coverage Start Date Coverage End Date MEDICAID OF [facility] [address] [place] [id number] NIELS CABALLERO Self - patient is the insured
--- OUTSIDE RECORDS SUMMARY | 2024-12-08 13:53 | XMS_ITS | Encounter Summary ---
Author Organization [employer] Address 75 [facility] 7t [place] [address] Care Team Providers Care Flat Lock Operator Name Role Phone Princess Min Primary Care Provider [phone] Reason for Visit * Reason Onset Date Comments Nurse Triage 09/27/2024 Encounter Details Date Type Department Care Team ([facility] st Contact Info) Description 09/27/2024 Telephone [facility] MEDICINE [address] [place] [address] Princess Min FNP [address] [place], [place] [phone] Nurse Triage Social History Tobacco Use Types [...] pt to triage, spoke to pt. through [employer] accounting systems analyst. pt states went for surgery this morning, [...] distress. given appt with PCP Wednesday in [facility] at 11:15 for exam and recheck. [...] above 300 The caller accepted this outcome. [phone] BHUTANESE Pt states had knee surgery today but it couldn't be performed because the indicated that the wheezing should be checked first since he didn't know what could be happening with the pt and it couldinteract with the anesthesia. documented in this encounter Plan of Treatment Upcoming Encounters Date Type Department Care Team ([facility] st Contact Info) Description 01/05/2025 11:00 AM EDT Office Visit [facility] MED & PEDS [address] [place] [address] Princess Min FNP [address] [place] [address] documented as of this encounter Visit Diagnoses Not on filedocumented in this encounter Additional Health Concerns Assessment Noted Time PHQ-9 Depression Total Score: 3 03/03/20 24 11:33 AM EDT documented as of this encounter Care Teams Flat Lock Operator Relationship Specialty Start Date End Date Princess Min FNP [address] [place] [address] PCP - General Family Medicine 02/10/24 documented as of this encounter
--- OUTSIDE RECORDS SUMMARY | 2024-12-08 13:53 | XMS_ITS | Encounter Summary ---
Author Organization [employer] Address 75 [facility] 7t [place] [address] Care Team Providers Care Showroom Sales Consultant Name Role Phone Princess Min Primary Care Provider [phone] Reason for Visit * Reason Comments Med Refill Encounter Details Date Type Department Care Team ([facility] st Contact Info) Description 04/25/2024 Refill [facility] MEDICINE [address] [place] [address] Princess Min FNP [address] [place], [place] [phone] Social History Tobacco Use Types Packs/Day Years [...] Description 01/05/2025 11:00 AM EDT Office Visit [facility] MED & PEDS [address] [place] [address] Princess Min FNP 505 [place] [address] documented as of this encounter Visit Diagnoses Not on filedocumented in this encounter Additional Health Concerns Assessment Noted Time PHQ-9 Depression Total Score: 3 03/03/20 24 11:33 AM EDT documented as of this encounter Care Teams Showroom Sales Consultant Relationship Specialty Start Date End Date Princess Min FNP [address] [place] [address] PCP - General Family Medicine 02/10/24 documented as of this encounter
--- OUTSIDE RECORDS SUMMARY | 2024-12-08 13:53 | XMS_ITS | Encounter Summary ---
Author Organization [employer] Address 75 [facility] 7t [place] [address] Care Team Providers Care Equal Employment Opportunity Officer Name Role Phone Princess Min Primary Care Provider [phone] Princess Min Primary Care Provider [phone] Reason for Visit * Reason Onset Date Comments PT1 02/03/2024 Encounter Details Date Type Department Care Team (Late st Contact Info) Description 02/03/2024 Telephone [facility] MEDICINE [address] [place] [address] Princess Min FNP [address] [place], [place] [phone] PT1 Social History Tobacco Use Types Packs/Day [...] Y/N: Yes Provider name or facility name: [facility] Address: [address] [place] [address] Escort needed: Y/N: No Do you have a wheelchair: Y/N: No If yes- Manual or electric: No, but cane. Visits; N/A documented in this encounter Plan of Treatment Upcoming Encounters Date Type Department Care Team (Late st Contact Info) Description 01/05/2025 11:00 AM EDT Office Visit [facility] MED & PEDS 505 [place] [address] Princess Mni FNP [address] [place] [address] documented as of this encounter Visit Diagnoses Not on filedocumented in this encounter Additional Health Concerns Assessment Noted Time PHQ-9 Depression Total Score: 10 023 10:39 AM EDT documented as of this encounter Care Teams Equal Employment Opportunity Officer Relationship Specialty Start Date End Date Princess Min FNP [address] [place] [address] PCP - General Family Medicine 01/21/24 02/03/24 Princess Min FNP [address] [place] [address] PCP - General Family Medicine 02/10/24 documented as of this encounter
--- OUTSIDE RECORDS SUMMARY | 2024-12-08 13:53 | XMS_ITS | Encounter Summary ---
Author Organization [employer] Address 75 [facility] 7t [place] [address] Care Team Providers Care Director Of Medical Education Name Role Phone Princess Min Primary Care Provider [phone] Reason for Visit * Reason Onset Date Comments Pre op 06/12/2024 Encounter Details Date Type Department Care Team ([facility] st Contact Info) Description 06/12/2024 Telephone [facility] MEDICINE [address] [place] [address] Princess Min FNP [address] [place], [place] [phone] Pre op Social History Tobacco Use Types [...] Yes Surgeon's name: Dr Laureano Facility name: [facility] Surgeon's office number: [phone] Surgeon's office fax number: [phone] Contact name (person you spoke with): Stephanie Last office note from surgeon requested: Yes Send Message to Miracle Dickens and Juice Gavin documented in this encounter Plan of Treatment Upcoming Encounters Date Type Department Care Team ([facility] Contact Info) Description 01/05/2025 11:00 AM EDT Office Visit [facility] MED & PEDS 505 [place] [address] Princess Min, BIANCA [address] [place] [address] documented as of this encounter Visit Diagnoses Not on filedocumented in this encounter Additional Health Concerns Assessment Noted Time PHQ-9 Depression Total Score: 3 03/03/20 24 11:33 AM EDT documented as of this encounter Care Teams Director Of Medical Education Relationship Specialty Start Date End Date Princess Min FNP [address] [place] [address] PCP - General Family Medicine 02/10/24 documented as of this encounter
--- OUTSIDE RECORDS SUMMARY | 2024-12-08 13:53 | XMS_ITS | Encounter Summary ---
Author Organization [employer] Address 75 [facility] 7t [place] [address] Care Team Providers Care Warm In Worker Name Role Phone Princess Min Primary Care Provider [phone] Princess Min Primary Care Provider [phone] Princess Min Primary Care Provider [phone] Reason for Visit * Reason Onset Date Comments PT1 04/27/2023 Encounter Details Date Type Department Care Team (Late st Contact Info) Description 04/27/2023 Telephone [facility] MEDICINE [address] [place] [address] Princess Min FNP [address] [place], [place] [phone] PT1 Social History Tobacco Use Types Packs/Day [...] Certification of Serious Illness is ready for picker tender helper at medical records. * Telephone Encounter - Barbie Montanez - 04/28/2023 3:58 PM EDT PT-1 submitted for patient. They will receive a letter of approval or denial in the mail. * Telephone Encounter - Velia Berry - 04/27/2023 4:43 PM EDT Tc form pt requesting PT1 Date: 05/06/23 Time: 10 AM address: [address] [place] [id number] specialty: Psychologist # visits: n/a second class welder: no Wheelchair: no documented in this encounter Plan of Treatment Upcoming Encounters Date Type Department Care Team (Late st Contact Info) Description 01/05/2025 11:00 AM EDT Office Visit [facility] MED & PEDS 505 [place] [address] Princess Min FNP [address] [place] [address] documented as of this encounter Visit Diagnoses Not on filedocumented in this encounter Additional Health Concerns Assessment Noted Time PHQ-9 Depression Total Score: 10 023 10:39 AM EDT documented as of this encounter Care Teams Warm In Worker Relationship Specialty Start Date End Date Princess Min FNP [address] [place] [address] PCP - General Family Medicine 03/20/22 12/26/23 Princess Min FNP [address] [place] [address] PCP - General Family Medicine 01/21/24 02/03/24 Princess Min FNP [address] [place] [address] PCP - General Family Medicine 02/10/24 documented as of this encounter
--- OUTSIDE RECORDS SUMMARY | 2024-12-08 13:53 | XMS_ITS | Encounter Summary ---
Author Organization [employer] Address 75 [facility] 7t [place] [address] Care Team Providers Care Field Representative/Health Education Name Role Phone Princess Min Primary Care Provider [phone] Reason for Visit * Reason Onset Date Comments FYI 07/13/2024 Encounter Details Date Type Department Care Team ([facility] st Contact Info) Description 07/13/2024 Telephone [facility] MEDICINE [address] [place] [address] Princess Min FNP [address] [place], [place] [phone] FYI Social History Tobacco Use Types Packs/Day [...] Upcoming Encounters Date Type Department Care Team ([facility] st Contact Info) Description 01/05/2025 11:00 AM EDT Office Visit [facility] MED & PEDS [address] [place] [address] Princess Min FNP [address] [place] [address] documented as of this encounter Visit Diagnoses Not on filedocumented in this encounter Additional Health Concerns Assessment Noted Time PHQ-9 Depression Total Score: 3 03/03/20 24 11:33 AM EDT documented as of this encounter Care Teams Field Representative/Health Education Relationship Specialty Start Date End Date Princess Min FNP [address] [place] [address] PCP - General Family Medicine 02/10/24 documented as of this encounter
--- OUTSIDE RECORDS SUMMARY | 2024-12-08 13:53 | XMS_ITS ---
Author Organization [facility] Address [address] [place] [address] Care Team Providers Care Service Station Manager Name Role Phone CHARLES LARIOS, OMERO Primary Care Provider Naun Silva Jr, Aidan Otero REASON FOR VISIT conf appt Encounters Encounter Location Date Provider Diagnosis [facility] [address] [place] [address] 06/21/2024 Aidan Silva Jr Plan Of Treatment No Information Progress Notes * MADAY CABALLEROOB:1965 (58 yo F)Acc No.[id number]:06/21/2024 Patient:?NIELS CABALLERO :1965???Age:58 Y???Sex:Female Address:[address], [place], [address] * true * Date:? Generated for Santosh zhao/Miles/eTransmitting on:?12/08/2024 01:53 PM EDT
--- OUTSIDE RECORDS SUMMARY | 2024-12-08 13:53 | XMS_ITS | Encounter Summary ---
Author Organization [employer] Address 75 [facility] 7t [place] [address] Care Team Providers Care Non Licensed Nuclear Plant Operator Name Role Phone Princess Min Primary Care Provider [phone] Princess Min Primary Care Provider [phone] Princess Min Primary Care Provider [phone] Reason for Visit * Reason Comments Med Refill Encounter Details Date Type Department Care Team (Late Contact Info) Description 08/11/2022 Refill [facility] MEDICINE [address] [place] [address] Princess Min FNP [address] [place], [place] [phone] Cervical spondylosis Social History Tobacco Use Types [...] Description 01/05/2025 11:00 AM EDT Office Visit [facility] MED & PEDS [address] [place], [place] [phone] Princess Min FNP [address] [place] [address] documented as of this encounter Visit Diagnoses Diagnosis Cervical spondylosis Cervical spondylosis without myelopathy documented in this encounter Care Teams Non Licensed Nuclear Plant Operator Relationship Specialty Start Date End Date Princess Min FNP [address] [place] [address] PCP - General Family Medicine 03/20/22 12/26/23 Princess Min FNP [address] [place] [address] PCP - General Family Medicine 01/21/24 02/03/24 Princess Min FNP [address] [place] [address] PCP - General Family Medicine 02/10/24 documented as of this encounter
--- OUTSIDE RECORDS SUMMARY | 2024-12-08 13:53 | XMS_ITS | Encounter Summary ---
Author Organization [employer] Address 75 [facility] 7t h Floor [place] [id number] Care Team Providers Care Laboratory Apparatus Glass Grinder Name Role Phone Princess Min Primary Care Provider [phone] Reason for Visit * Reason Onset Date Comments Med Refill 07/13/2024 Encounter Details Date Type Department Care Team (Late st Contact Info) Description 07/13/2024 Telephone [facility] MEDICINE [address] [place] [address] Princess Min FNP [address] [place], [place] [phone] Med Refill Social History Tobacco Use Types [...] 7:46 PM EST 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 [...] for the pain. Please contact pt at [phone]. documented in this encounter Plan of Treatment Upcoming Encounters Date Type Department Care Team ([facility] st Contact Info) Description 01/05/2025 11:00 AM EDT Office Visit [facility] MED & PEDS [address] [place] [address] Princess Min FNP [address] [place] [address] documented as of this encounter Visit Diagnoses Not on filedocumented in this encounter Additional Health Concerns Assessment Noted Time PHQ-9 Depression Total Score: 3 03/03/20 11:33 AM EDT documented as of this encounter Care Teams Laboratory Apparatus Glass Grinder Relationship Specialty Start Date End Date Princess Min FNP [address] [place] [address] PCP - General Family Medicine 02/10/24 documented as of this encounter
--- OUTSIDE RECORDS SUMMARY | 2024-12-08 13:53 | XMS_ITS | Encounter Summary ---
Author Organization [facility] Address 75 [facility] 7t [place] [address] Care Team Providers Care Supervisor Refractory Products Name Role Phone Princess Min Primary Care Provider [phone] Princess Min Primary Care Provider [phone] Reason for Visit * Reason Comments Med Refill Encounter Details Date Type Department Care Team ([facility] st Contact Info) Description 02/03/2024 Refill [facility] [address] [place] [address] Princess Min FNP [address] [place], [place] [phone] Hypothyroidism, unspecified type Social History Tobacco Use [...] [facility] MED & PEDS [address] [place] [address] Princess Min FNP [address] [place] [address] documented as of this encounter Visit Diagnoses Diagnosis Hypothyroidism, unspecified type documented in this encounter Additional Health Concerns Assessment Noted Time PHQ-9 Depression Total Score: 10 023 10:39 AM EDT documented as of this encounter Care Teams Supervisor Refractory Products Relationship Specialty Start Date End Date Princess Min FNP [address] [place] [address] PCP - General Family Medicine 01/21/24 02/03/24 Princess Min FNP [address] [place] [address] PCP - General Family Medicine 02/10/24 documented as of this encounter
--- OUTSIDE RECORDS SUMMARY | 2024-12-08 13:53 | XMS_ITS | Encounter Summary ---
Author Organization [employer] Address 75 [facility] 7t [place] [address] Care Team Providers Care Paramedic Instructor Name Role Phone Princess Min Primary Care Provider [phone] Princess Min Primary Care Provider [phone] Princess Min Primary Care Provider [phone] Reason for Visit * Reason Onset Date Comments PT1 request 10/19/2022 Encounter Details Date Type Department Care Team ([facility] st Contact Info) Description 10/19/2022 Telephone [facility] MEDICINE [address] [place] [address] Princess Min FNP [address] [place], [place] [phone] PT1 request Social History Tobacco Use Types [...] / denial letter via mail. PT-1 Request [id number] Authorized - [facility] PT-1 Request [id number] Pending [facility] Specialty [address] [place] [address] * Telephone Encounter - Alissa Winkler - 10/19/2022 11:55 AM EDT Tc from pt requesting PT1 Location:[facility] Specialty: Provider Date&Time:N/a Pit Clerk: yes Uses cane Location: 10 [facility] Specialty: Orthopedics Date&Time: N/a Pit Clerk: Yes Location:2 [facility] Specialty: [facility] center Date&Time:N/a Pit Clerk: yes documented in this encounter Plan of Treatment Upcoming Encounters Date Type Department Care Team (Late st Contact Info) Description 01/05/2025 11:00 AM EDT Office Visit [facility] MED & PEDS [address] [place] [address] Princess Min FNP [address] [place] [address] documented as of this encounter Visit Diagnoses Not on filedocumented in this encounter Care Teams Paramedic Instructor Relationship Specialty Start Date End Date Princess Min FNP [address] [place] [address] PCP - General Family Medicine 03/20/22 12/26/23 Princess Min FNP [address] [place] [address] PCP - General Family Medicine 01/21/24 02/03/24 Princess Min FNP [address] [place] [address] PCP - General Family Medicine 02/10/24 documented as of this encounter
--- OUTSIDE RECORDS SUMMARY | 2024-12-08 13:53 | XMS_ITS | Encounter Summary ---
Author Organization [employer] Address 75 [facility] 7t [place] [address] Care Team Providers Care Woodworker Helper Name Role Phone Princess Min Primary Care Provider [phone] Princess Min Primary Care Provider [phone] Princess Min Primary Care Provider [phone] Reason for Visit * Reason Onset Date Comments PCP Switch 06/22/2023 Encounter Details Date Type Department Care Team ([facility] st Contact Info) Description 06/22/2023 Telephone [facility] MEDICINE [address] [place] [address] Princess Min FNP [address] [place], [place] [phone] PCP Switch Social History Tobacco Use Types [...] be seen by a doctor not a SCHOOL BUSINESS ADMINISTRATOR procedure writer did express that it will be sometime before the change can take place patient is aware and ok with response. documented in this encounter Plan of Treatment Upcoming Encounters Date Type Department Care Team (Late st Contact Info) Description 01/05/2025 11:00 AM EDT Office Visit [facility] MED & PEDS [address] [place] [address] Princess Min FNP [address] [place] [address] documented as of this encounter Visit Diagnoses Not on filedocumented in this encounter Additional Health Concerns Assessment Noted Time PHQ-9 Depression Total Score: 10 023 10:39 AM EDT documented as of this encounter Care Teams Woodworker Helper Relationship Specialty Start Date End Date Princess Min FNP [address] [place] [address] PCP - General Family Medicine 03/20/22 12/26/23 Princess Min FNP [address] [place] [address] PCP - General Family Medicine 01/21/24 02/03/24 Princess Min FNP [address] [place] [address] PCP - General Family Medicine 02/10/24 documented as of this encounter
--- OUTSIDE RECORDS SUMMARY | 2024-12-08 13:53 | XMS_ITS ---
Author Organization [facility] Address [address] [place] [address] Care Team Providers Care Field Education Director Name Role Phone CHARLES LARIOS, OMERO Primary Care Provider Naun Silva Jr, Aidan Otero REASON FOR VISIT screening colonoscopy Encounters Encounter Location Date Provider Diagnosis [facility] [address] [place] [address] [place] [address] 06/26/2024 Aidan Silva Jr Plan Of Treatment No Information Progress Notes * OREN CABALLEROLDOB:1965 (59 yo F)Acc No.[id number]:06/26/2024 Progress Notes Patient:?NIELS CABALLERO Provider:?Aidan Silva MD :1965???Age:58 Y???Sex:Female D ate:06/26/2024 Address:[address], [place] [facility] Pcp:OMERO SOTO MD Subjective: * Chief Complaints: [...] MD Date:?1 08/27/2023 Generated for Santosh zhao/Miles/eTkenyasmitting on:?12/08/2024 01:53 PM EDT
--- OUTSIDE RECORDS SUMMARY | 2024-12-08 13:53 | XMS_ITS | Encounter Summary ---
Author Organization [employer] Address 75 [facility] 7t [place] [address] Care Team Providers Care Yeast Distiller Name Role Phone Princess Min Primary Care Provider [phone] Reason for Visit * Reason Onset Date Comments Med Refill 02/11/2024 Encounter Details Date Type Department Care Team (Late st Contact Info) Description 02/11/2024 Telephone [facility] MEDICINE [address] [place] [address] Princess Min FNP [address] [place], [place] [phone] Med Refill Social History Tobacco Use Types [...] 1:02 PM EDT Medication was sent to [facility] on 11/29/23 with 3 refills. * Telephone Encounter - Drake Levy - 02/11/2024 11:57 AM EDT TC from pt requesting medication refill. Medications needing refill : Asmanex HFA 200 MCG/ACT aerosol To be sent to: [facility] - [place], [place] - [address] [facility] documented in this encounter Plan of Treatment Upcoming Encounters Date Type Department Care Team (Late st Contact Info) Description 01/05/2025 11:00 AM EDT Office Visit [facility] MED & PEDS [address] [place] [address] Princess Min FNP [address] [place] [address] documented as of this encounter Visit Diagnoses Not on filedocumented in this encounter Additional Health Concerns Assessment Noted Time PHQ-9 Depression Total Score: 10 023 10:39 AM EDT documented as of this encounter Care Teams Yeast Distiller Relationship Specialty Start Date End Date Princess Min FNP [address] [place] [address] PCP - General Family Medicine 02/10/24 documented as of this encounter
--- OUTSIDE RECORDS SUMMARY | 2024-12-08 13:53 | XMS_ITS | Encounter Summary ---
Author Organization [employer] Address 75 [facility] 7t h Floor [place] [id number] Care Team Providers Care Showroom Consultant Name Role Phone Princess Min Primary Care Provider Princess Min Primary Care Provider [phone] Reason for Visit * Reason Comments Med Refill Encounter Details Date Type Department Care Team ([facility] st Contact Info) Description 01/02/2024 Refill [facility] MEDICINE [address] [place] [address] Princess Min FNP [address] [place], [place] [phone] Social History Tobacco Use Types Packs/Day Years [...] Description 01/05/2025 11:00 AM EDT Office Visit [facility] MED & PEDS [address] [place], [place] [phone] Princess Min FNP [address] [place] [address] documented as of this encounter Visit Diagnoses Not on filedocumented in this encounter Additional Health Concerns Assessment Noted Time PHQ-9 Depression Total Score: 10 023 10:39 AM EDT documented as of this encounter Care Teams Showroom Consultant Relationship Specialty Start Date End Date Princess Min FNP [address] [place] [address] PCP - General Family Medicine 01/21/24 02/03/24 Princess Min FNP [address] [place] [address] PCP - General Family Medicine 02/10/24 documented as of this encounter
--- NOTE | 2024-12-08 15:03 | PFT_ITS ---
Spirometry [] Lung Volumes [] Diffusion Capacity [] Methacholine Challenge [] Flow Volume Loops [] MVV [] MIP/MEP(Max inspiratory pressure/Max expiratory pressure) [] 6 Minute Walk Test [] ABG [] Interpretation [] MTDD
[2024-12-08 15:45] VITALS: PULSE 70; O2SAT 97
== END 2024-12-08 13:50 | disposition home or self-care (01) ==
LOC: HO.CT 13:49
PROVIDERS: PCP Registered Nurse; Visit Provider Nurse Practitioner Family
DX: Z12.2 Encounter for screening for malignant neoplasm of respiratory organs (principal); F17.210 Nicotine dependence, cigarettes, uncomplicated; J45.909 Unspecified asthma, uncomplicated
CPT/HCPCS: 71250; 94010; 94640; 94727; 94729

== ENCOUNTER → 2024-12-08 13:52 | Outpatient (BNV) | payer MEDICAID, SELFPAY | PROVIDERS: PCP Registered Nurse; Visit Provider Specialist | DX: J84.10 Pulmonary fibrosis, unspecified (principal) | CPT/HCPCS: 71250 ==

== ENCOUNTER → 2024-12-08 15:03 | Outpatient (BNV) | payer MEDICAID, SELFPAY | PROVIDERS: PCP Registered Nurse; Visit Provider Internal Medicine Pulmonary Disease | DX: J45.909 Unspecified asthma, uncomplicated (principal); F17.210 Nicotine dependence, cigarettes, uncomplicated | CPT/HCPCS: 94060; 94727; 94729 ==

== ENCOUNTER 2024-12-15 10:31 | Outpatient (AMB) | payer MEDICAID, SELFPAY ==
--- OUTSIDE RECORDS SUMMARY | 2024-12-15 10:38 | XMS_ITS | Encounter Summary ---
Author Organization [employer] Address [address] [place] [address] Care Team Providers Care Caddy Name Role Phone Princess Min Primary Care Provider [phone] Reason for Visit * Reason Comments Med Refill Encounter Details Date Type Department Care Team ([facility] st Contact Info) Description 12/09/2024 Refill [facility] [address] [place] [address] Princess Min FNP [address] [place], [place] [id number] Arthritis of knee Social History Tobacco Use Types Packs/Day Years [...] 11:00 AM EDT Office Visit [facility] [address] [place] [address] Princess Min FNP [address] [place] [address] documented as of this encounter Visit Diagnoses Diagnosis Arthritis of knee Unspecified arthropathy, lower leg documented in this encounter Additional Health Concerns Assessment Noted Time PHQ-9 Depression Total Score: 3 03/03/20 24 11:33 AM EDT documented as of this encounter Care Teams Caddy Relationship Specialty Start Date End Date Princess Min FNP [address] [place] [address] PCP - General Family Medicine 02/10/24 documented as of this encounter
[2024-12-15 10:54] VITALS: BP 140/66; PULSE 68; O2SAT 99; BMI 43.7
--- NOTE | 2024-12-15 10:54 | MHC.OFFVIS ---
Vital Signs 12/15/24 10:54 Height 5 ft 1 in Weight 231 lb 6 oz BMI 43.7 BP 140/66 H Blood Pressure Location Lt brachial Position Sitting Pulse 68 Pulse Source Pulse Oximeter Pulse Oximetry (%) 99 Oxygen Delivery Method Room Air Intake Visit Reasons: Asthma Loss Prevention Analyst Required: Yes Loss Prevention Analyst Language: Spar Machine Operator Helper Services: Loss Prevention Analyst Present Loss Prevention Analyst Name: Malu Jones LM Allergies cortisone [CORTISONE] Allergy (Intermediate, Verified 12/15/24 11:01) ELEVATES BLOOD SUGAR ibuprofen [IBUPROFEN] Allergy (Intermediate, Verified 12/15/24 11:01) GI UPSET, stomach upset mayonnaise [MAYONNAISE] Allergy (Mild, Verified 12/15/24 11:01) RASH naproxen [NAPROXEN] Adverse Reaction (Intermediate, Verified 12/15/24 11:01) STOMACH UPSET Vicodin Allergy (Unknown, Uncoded 12/15/24 11:01) palpitations,hypertension Cortisone Adverse Reaction (Unknown, Uncoded 12/15/24 11:01) hyperglycemia HPI HPI Asthma: Details: Argelia is a pleasant 59 year old female, current minimal smoker, with 20+ pack year history with underlying asthma. She reported worsening asthma over the last few months, requiring albuterol MDI multiple times per day with good effect. She was started on Breo 100 mcg but continues to require albuterol MDI daily. She endorses mild BLE edema, denies orthopnea or PND, reportedly compliant with lasix and under the care of cardiology. She has an upcoming appt next week with cardiology for further evaluation. Today she presents to review chest CT. [facility] Medical History (Updated 12/12/24 @ 08:38 by Alycia Miguel NP) Back pain Arthritis Anemia GERD (gastroesophageal reflux disease) History of headache Osteoarthritis of knees, bilateral Depression Asthma High cholesterol Hypothyroidism Type 2 diabetes mellitus Bilateral carpal tunnel syndrome Fibromyalgia Chronic diarrhea Drug induced constipation Surgical History (Updated 09/04/24 @ 11:04 by Indy Cunningham RN) History of total left knee replacement History of total right knee replacement (TKR) Hx of bilateral cataract extraction History of esophagogastroduodenoscopy (EGD) H/O colonoscopy Hx of hand surgery History of cholecystectomy (~2011) S/p bilateral carpal tunnel release (~2003) Hx of laparoscopic adjustable gastric banding (~2009) History of removal of laparoscopic gastric banding device (~10/2012) H/O: hysterectomy (~10/2012) Family History Mother No problems noted. 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) Alcohol intake: current Alcohol intake frequency: holidays/special occasions only Comment: COUNTS CORRECT Patient Tobacco Use Status: Current everyday Tobacco user Tobacco use type: Cigarette Cigarettes Per Day: 3 Years Smoked: 47 service: No Current occupational status: disabled Review of Systems Const Denies chills, Denies excessive sweating, Denies fever(s), Denies headache(s) and Denies night sweats Eyes Denies dry eyes, Denies irritation and Denies itchy eyes ENT Reports Normal hearing present and Denies headache(s) Card Denies chest pain, Denies chest pain at rest, Denies chest pain with activity, Denies claudication, Denies leg edema, Denies dyspnea, Denies orthopnea and Denies paroxysmal nocturnal dyspnea Resp Denies change in phlegm color, Denies chest congestion, Denies cough, Denies hemoptysis, Denies excessive phlegm production, Denies pain on inspiration, Denies pain with cough, Denies dyspnea and Denies stridor Musc Denies myalgias Neuro Reports Normal hearing present and Denies headache(s) Endo Denies excessive sweating Robin/Lymph Denies lymphadenopathy Aller/Immun Denies itchy eyes and Denies seasonal rhinorrhea Physical Exam Vital Signs: Last Vital Signs Pulse 68 12/15/24 10:54 BP 140/66 H 12/15/24 10:54 Pulse Ox 99 12/15/24 10:54 Oxygen Delivery Method Room Air 12/15/24 10:54 BMI result Body Mass Index 43.7 Const General: cooperative, healthy appearing, comfortable, no acute distress, well developed and alert Nutritional Appearance: obese Orientation/consciousness: patient oriented x3 Limitations: no limitations HEENT Head: Yes normal to inspection, Yes normocephalic and Yes atraumatic Ears: hearing grossly normal bilaterally and external ears normal Eyes General: appearance normal, both eyes and all related structures Eyelids: Yes eyelids normal Sclerae: sclerae normal EOM: EOMs intact bilaterally Neck Neck: Yes normal visual inspection and Yes no lymphadenopathy Lymphatic: no lymphadenopathy noted Chest Chest palpation & inspection: normal inspection of the chest Resp Effort & Inspection: normal respiratory effort, able to speak in complete sentences, no audible wheezes, no cough, no stridor, not tachypneic, no tripod positioning and no use of accessory muscles Auscultation: clear to auscultation bilaterally Cardio Jugular venous distension: no JVD Rate: regular rate Rhythm: regular rhythm Skin Other: warm, dry General skin exam: no rashes or lesions noted Neuro General: patient oriented x3 Cranial nerves: Yes Normal hearing present Cognition (Neuro): normal cognition Gait exam (Neuro): Normal gait present Extrem General: Yes normal to inspection, Yes capillary refill normal, Yes no clubbing, cyanosis or edema and Yes no pedal edema Psych Appearance: grossly normal and well kempt Speech and movement: Normal speech and movement present and Clear speech present Affect: normal affect Attitude: cooperative Thought process: Normal thought process present Thought content: Normal thought content present Insight: Good insight present (Psych) Judgement: Good judgement present (Psych) Results Reviewed Results Reviewed: [place] [address] CT Scan Report Signed Patient: Argelia Messina MR#: [id number] : 1965 Acct:[id number] Age/Sex: 59 / F ADM Date: 12/08/24 Loc: HO.CT Attending Dr: Alycia Miguel NP Ordering Physician: Alycia Miguel NP Date of Service: 12/08/24 Procedure(s): CT chest wo IV con Accession Number(s): [id number] cc: Princess Min; Alycia Miguel NP~ Report Number: [id number]: Total DLP = 301.00 mGy-cm CLINICAL HISTORY: F17.210 - Nicotine dependence, cigarettes, uncomplicated CT chest without contrast Comparison: None Findings: The heart is normal size. The visualized thyroid and mediastinum are unremarkable. No consolidation or effusion. There is a calcified right upper lobe granuloma. The upper abdomen is unremarkable. The bones are intact. IMPRESSION: 1. Calcified right upper lobe granuloma. This document has been electronically signed by: Hung Warner MD on 12/09/2024 08:35:25 Dictated By: Hung Warner MD Signed By: <Electronically signed by Hung Warner MD in OV> 12/09/2436 DD/ 4 TD/TT: 12/09/24834 Type Casting Machine Operator: Assessment & Plan Assessment & Plan (1) Asthma: Code(s): J45.909 - Unspecified asthma, uncomplicated Category: Medical (2) Nicotine dependence, cigarettes, uncomplicated: Code(s): F17.210 - Nicotine dependence, cigarettes, uncomplicated Category: Medical (3) Pulmonary nodule: Code(s): R91.1 - Solitary pulmonary nodule Category: Medical Plan Reviewed PFT which revealed moderate restrictive ventilatory defect with no bronchodilator response. Decreased expiratory reserve volume suggests extrathoracic restriction likely secondary to abdominal obesity. DLCO normal. Discussed importance of weight loss. Patient continues to use albuterol MDI multiple times per day with good effect despite Breo 100mcg, will increase to 200 mcg. She is aware to call if symptoms do not improve. Reviewed chest CT which revealed RUL granuloma, will repeat with LDCT in one year to assess stability given smoking history. Smoking cessation reviewed. All questions were answered and patient is in agreement of plan. Will follow up in 6-8 weeks or sooner if needed. Orders: Orders CT lung screening 11 Months F17.210 - Nicotine dependence, cigarettes, uncomplicated Medications: New fluticasone furoate-vilanterol 200-25 mcg/dose (Breo Ellipta) 1 inh inhalation DAILY 60 ea 6RF Coding Level of Care Code Est Pt Level 4 (32330) Diagnoses Asthma J45.909 Nicotine dependence, cigarettes, uncomplicated F17.210 Pulmonary nodule R91.1
== END 2024-12-15 11:27 | disposition home or self-care (01) ==
LOC: HO.HPSW 10:32
PROVIDERS: PCP Registered Nurse; Visit Provider Nurse Practitioner Family
DX: J45.909 Unspecified asthma, uncomplicated (principal); F17.210 Nicotine dependence, cigarettes, uncomplicated; R91.1 Solitary pulmonary nodule
CPT/HCPCS: 99214

== ENCOUNTER → 2024-12-15 10:31 | Outpatient (BNVA) | payer MEDICAID, SELFPAY | PROVIDERS: PCP Registered Nurse; Visit Provider Nurse Practitioner Family | DX: J45.909 Unspecified asthma, uncomplicated (principal); R91.1 Solitary pulmonary nodule; F17.210 Nicotine dependence, cigarettes, uncomplicated | CPT/HCPCS: 99212 ==

== ENCOUNTER 2025-04-18 15:10 | Outpatient (AMB) | payer MEDICAID, SELFPAY ==
--- OUTSIDE RECORDS SUMMARY | 2024-06-26 07:00 | XMS_ITS ---
Author Organization [facility] Address [address] [place] [address] Care Team Providers Care Mica Laminating Machine Feeder Name Role Phone CHARLES LARIOS, OMERO Primary Care Provider Naun Silva Jr, Aidan Otero REASON FOR VISIT screening colonoscopy Encounters Encounter Location Date Provider Diagnosis [facility] [address] [place] [address] [place] [address] 06/26/2024 Aidan Silva Jr Plan Of Treatment No Information Progress Notes * OREN CABALLEROLDOB:1965 (59 yo F)Acc No.[id number]:06/26/2024 Progress Notes Patient: NIELS ZELAYA Provider: Carmen Silva MD :1965 A ge:58 Y S ex:Female Date:06/26/2024 Address:[address], [id number] Pcp:OMERO SOTO MD Subjective: * Chief Complaints: * 1 . Screening colonoscopy. * Medical History: Objective: * Vitals: Assessment: Plan: * Treatment: * * The named appointment provid er may or may not be the originator of this progress note, and it is not deemed complete until electronically signed by the appointment provider. Sign off status: Pending * Provider: Carmen Silva MD Date: 1 08/27/2023 Generated for Santosh zhao/Miles/Leolaitting on: 0 04/18/2025 05:38 PM EDT
--- NOTE | 2025-04-18 15:31 | MHC.OFFVIS ---
Vital Signs 04/18/25 15:32 Height 5 ft 1 in Weight 229 lb 4 oz BMI 43.3 BP 138/64 Blood Pressure Location Lt radial Position Sitting Pulse 71 Pulse Source Pulse Oximeter Pulse Oximetry (%) 98 Oxygen Delivery Method Room Air Intake Visit Reasons: L TKA Revision w/Dr. Laureano Ecommerce Merchandising Manager Required: Yes Ecommerce Merchandising Manager Language: Dam Tender Assistant Services: Ecommerce Merchandising Manager Present Ecommerce Merchandising Manager Name: Malu Jones VICKIE Allergies cortisone (CORTISONE) Allergy (Intermediate, Verified 04/18/25 15:41) ELEVATES BLOOD SUGAR ibuprofen (IBUPROFEN) Allergy (Intermediate, Verified 04/18/25 15:41) GI UPSET, stomach upset mayonnaise (MAYONNAISE) Allergy (Mild, Verified 04/18/25 15:41) RASH naproxen (NAPROXEN) Adverse Reaction (Intermediate, Verified 04/18/25 15:41) STOMACH UPSET Vicodin Allergy (Unknown, Uncoded 04/18/25 15:41) palpitations,hypertension Cortisone Adverse Reaction (Unknown, Uncoded 04/18/25 15:41) hyperglycemia HPI HPI L TKA Revision w/Dr. Laureano: Details: Argelia is a pleasant 59 year old female, current minimal smoker, with 20+ pack year history with underlying asthma. At the last visit patient reported suboptimal control on Breo 100 should mcg, requiring albuterol MDI frequently and was switched to Breo 200 mcg. She has been using the increased dose of Breo consistently and denies any respiratory symptoms at this time. She denies any visits to urgent care hospitalizations related to respiratory distress since last visit. Today she presents for preoperative evaluation for left total knee with Dr. Laureano. [facility] Medical History (Updated 04/19/25 @ 14:00 by Alycia Miguel NP) Back pain Arthritis Anemia GERD (gastroesophageal reflux disease) History of headache Osteoarthritis of knees, bilateral Depression Asthma High cholesterol Hypothyroidism Type 2 diabetes mellitus Bilateral carpal tunnel syndrome Fibromyalgia Chronic diarrhea Drug induced constipation Surgical History (Updated 09/04/24 @ 11:04 by Indy Cunningham RN) History of total left knee replacement History of total right knee replacement (TKR) Hx of bilateral cataract extraction History of esophagogastroduodenoscopy (EGD) H/O colonoscopy Hx of hand surgery History of cholecystectomy (~2011) S/p bilateral carpal tunnel release (~2003) Hx of laparoscopic adjustable gastric banding (~2009) History of removal of laparoscopic gastric banding device (~10/2012) H/O: hysterectomy (~10/2012) Family History Mother No problems noted. 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) Alcohol intake: current Alcohol intake frequency: holidays/special occasions only Comment: COUNTS CORRECT Patient Tobacco Use Status: Current everyday Tobacco user Tobacco use type: Cigarette Cigarettes Per Day: 3 Years Smoked: 47 service: No Current occupational status: disabled Review of Systems Const Denies chills, Denies excessive sweating, Denies fever(s), Denies headache(s) and Denies night sweats Eyes Denies dry eyes, Denies irritation and Denies itchy eyes ENT Reports Normal hearing present, Denies headache(s), Denies nasal congestion, Denies nasal discharge, Denies post nasal drip and Denies sore throat Card Denies chest pain, Denies chest pain at rest, Denies chest pain with activity, Denies claudication, Denies leg edema, Denies dyspnea, Denies dyspnea on exertion, Denies orthopnea and Denies paroxysmal nocturnal dyspnea Resp Denies chest congestion, Denies cough, Denies excessive phlegm production, Denies pain on inspiration, Denies pain with cough, Denies dyspnea, Denies dyspnea on exertion, Denies stridor and Denies wheezing Musc Denies myalgias Neuro Reports Normal hearing present and Denies headache(s) Endo Denies excessive sweating Robin/Lymph Denies lymphadenopathy Aller/Immun Denies itchy eyes, Denies seasonal rhinorrhea and Denies wheezing Physical Exam Vital Signs: Last Vital Signs Pulse 71 04/18/25 15:32 BP 138/64 04/18/25 15:32 Pulse Ox 98 04/18/25 15:32 Oxygen Delivery Method Room Air 04/18/25 15:32 BMI result Body Mass Index 43.3 Const General: cooperative, healthy appearing, comfortable, no acute distress, well developed and alert Nutritional Appearance: obese Orientation/consciousness: patient oriented x3 Limitations: no limitations HEENT Head: Yes normal to inspection, Yes normocephalic and Yes atraumatic Ears: hearing grossly normal bilaterally and external ears normal Eyes General: appearance normal, both eyes and all related structures Eyelids: Yes eyelids normal Sclerae: sclerae normal EOM: EOMs intact bilaterally Neck Neck: Yes normal visual inspection and Yes no lymphadenopathy Lymphatic: no lymphadenopathy noted Chest Chest palpation & inspection: normal inspection of the chest Resp Effort & Inspection: normal respiratory effort, able to speak in complete sentences, no audible wheezes, no cough, no stridor, not tachypneic, no tripod positioning and no use of accessory muscles Auscultation: clear to auscultation bilaterally Cardio Jugular venous distension: no JVD Rate: regular rate Rhythm: regular rhythm Skin Other: warm, dry General skin exam: no rashes or lesions noted Neuro General: patient oriented x3 Cranial nerves: Yes Normal hearing present Cognition (Neuro): normal cognition Gait exam (Neuro): Normal gait present Extrem General: Yes normal to inspection, Yes capillary refill normal, Yes no clubbing, cyanosis or edema and Yes no pedal edema Psych Appearance: grossly normal and well kempt Speech and movement: Normal speech and movement present and Clear speech present Affect: normal affect Attitude: cooperative Thought process: Normal thought process present Thought content: Normal thought content present Insight: Good insight present (Psych) Judgement: Good judgement present (Psych) Assessment & Plan Assessment & Plan (1) Asthma: Code(s): J45.909 - Unspecified asthma, uncomplicated Category: Medical (2) Nicotine dependence, cigarettes, uncomplicated: Code(s): F17.210 - Nicotine dependence, cigarettes, uncomplicated Category: Medical (3) Pulmonary nodule: Code(s): R91.1 - Solitary pulmonary nodule Category: Medical (4) Encounter for preoperative pulmonary examination: Code(s): Z01.811 - Encounter for preprocedural respiratory examination Category: Medical Plan At this time patient reports good control of respiratory symptoms on current regimen, advised to continue Breo 200 mcg and albuterol p.r.n.. Patient denies any respiratory symptoms or any recent upper respiratory infections. Smoking cessation reviewed. At this time, she would be considered low risk for any perioperative pulmonary complications for proposed surgery. Consider bronchodilators during the perioperative period. All questions were answered and patient is in agreement of plan. Will follow up in 3 months or sooner if needed. Coding Level of Care Code Est Pt Level 4 (42862) Complex EM visit Add On G2211 Diagnoses Asthma J45.909 Nicotine dependence, cigarettes, uncomplicated F17.210 Pulmonary nodule R91.1 Encounter for preoperative pulmonary examination Z01.811
[2025-04-18 15:32] VITALS: BP 138/64; PULSE 71; O2SAT 98; BMI 43.3
--- OUTSIDE RECORDS SUMMARY | 2025-04-18 17:37 | XMS_ITS | Encounter Summary ---
Author Organization [employer] Address [address] [place] [address] Care Team Providers Care Dredge Mate Name Role Phone Princess Min Primary Care Provider [phone] Princess Min Primary Care Provider [phone] Princess Min Primary Care Provider [phone] Reason for Visit * Reason Onset Date Comments PT1 11/20/2022 Encounter Details Date Type Department Care Team (Late st Contact Info) Description 11/20/2022 Telephone [facility] [address] [place] [address] Princess Min FNP [address] [place], [place] [id number] PT1 Social History Tobacco Use Types Packs/Day [...] / denial letter via mail. PT-1 Request [id number] Authorized - [facility] [address] [address] * Telephone Encounter - Mayur Thomas - 11/20/2022 9:19 AM EDT Tc from pt requesting to Renew PT1 for Name of facility: n/a Specialty: All Future appts Location: [address] [place] [address] Date: n/a Time: n/a fax: n/a Phone: n/a wheelchair: n/a Computer Recycling Worker: Yes (Adult) For all future appts documented in this encounter Plan of Treatment Upcoming Encounters Date Type Department Care Team ([facility] st Contact Info) Description 05/07/2025 10:15 AM EDT Office Visit [facility]EDS [address] [place] [address] Princess Min FNP [address] [place] [address] documented as of this encounter Visit Diagnoses Not on filedocumented in this encounter Additional Health Concerns Assessment Noted Time PHQ-9 Depression Total Score: 24 023 9:25 AM EDT documented as of this encounter Care Teams Dredge Mate Relationship Specialty Start Date End Date Princess Min FNP [address] [place] [address] PCP - General Family Medicine 03/20/22 12/26/23 Princess Min FNP [address] [place] [address] PCP - General Family Medicine 01/21/24 02/03/24 Princess Min FNP [address] [place] [address] PCP - General Family Medicine 02/10/24 Cherelle Roy Balance ClerkNurses Director 01/24/25 documented as of this encounter
--- OUTSIDE RECORDS SUMMARY | 2025-04-18 17:37 | XMS_ITS | Encounter Summary ---
Author Organization [employer] Address [address] [place] [address] Care Team Providers Care Manager Transmission Name Role Phone Princess Min Primary Care Provider [phone] Princess Min Primary Care Provider Princess Min Primary Care Provider [phone] Reason for Visit * Reason Onset Date Comments Durable Medical Equipment 11/19/2022 Encounter Details Date Type Department Care Team (Late st Contact Info) Description 11/19/2022 Telephone [facility] MEDICINE [address] [place] [address] Princess Min FNP [address] [place], [place] [phone] Durable Medical Equipment Social History Tobacco Use [...] before I couldprovide a referral number to [facility] to process DME. Patient understood and agreed with plan. * Telephone Encounter - Miracle Dickens - 12/08/2022 4:32 PM EDT Tc from pt regarding message below. Pt states [facility] is requesting a PA If any questions please contact pt at [phone] * Telephone Encounter - Barbie Montanez - 12/08/2022 12:34 PM EDT Scripts received from provider and faxed to [facility] as requested. Patient notified. * Telephone Encounter - Dean Alvarado - 12/08/2022 12:06 PM EDT Tc from pt requesting status update on script for commode and shower chair, states would like script to sent to [facility]. Please contact at [phone] * Telephone Encounter - Barbie Montanez - 11/19/2022 3:16 PM EDT Scripts for shower chair and commode generated for signature * Telephone Encounter - Jareth Cifuentes - 11/19/2022 2:55 PM EDT Tc from pt requesting a script for a commode also a script for a shower chair. To be faxed to [facility] Please contact pt at [phone] documented in this encounter Plan of Treatment Upcoming Encounters Date Type Department Care Team (Late st Contact Info) Description 05/07/2025 10:15 AM EDT Office Visit [facility] [address] [place] [address] Princess Min FNP [address] [place] [address] documented as of this encounter Visit Diagnoses Not on filedocumented in this encounter Additional Health Concerns Assessment Noted Time PHQ-9 Depression Total Score: 023 9:25 AM EDT documented as of this encounter Care Teams Manager Transmission Relationship Specialty Start Date End Date Princess Min FNP [address] [place] [address] PCP - General Family Medicine 03/20/22 12/26/23 Princess Min FNP [address] [place] [address] PCP - General Family Medicine 01/21/24 02/03/24 Princess Min FNP [address] [place] [address] PCP - General Family Medicine 02/10/24 Cherelle Roy Nib AdjusterTraffic Superintendent 01/24/25 documented as of this encounter
--- OUTSIDE RECORDS SUMMARY | 2025-04-18 17:37 | XMS_ITS | Encounter Summary ---
Author Organization [employer] Address 75 [facility] 7t [place] [address] Care Team Providers Care Supply Coordinator Name Role Phone Princess Min Primary Care Provider [phone] Princess Min Primary Care Provider Princess Min Primary Care Provider [phone] Reason for Visit * Reason Onset Date Comments Appointment Request 11/20/2022 Encounter Details Date Type Department Care Team ([facility] st Contact Info) Description 11/20/2022 Telephone [facility] MEDICINE [address] [place] [address] Princess Min FNP [address] [place], [place] [phone] Appointment Request Social History Tobacco Use Types [...] to switching program. Please contact pt at [phone] Tunisian Speaker documented in this encounter Plan of Treatment Upcoming Encounters Date Type Department Care Team ([facility] st Contact Info) Description 05/07/2025 10:15 AM EDT Office Visit [facility] MED & PEDS 505 [place] [address] Princess Min FNP 505 [place] [address] documented as of this encounter Visit Diagnoses Not on filedocumented in this encounter Additional Health Concerns Assessment Noted Time PHQ-9 Depression Total Score: 24 023 9:25 AM EDT documented as of this encounter Care Teams Supply Coordinator Relationship Specialty Start Date End Date Princess Min FNP [address] [place] [address] PCP - General Family Medicine 03/20/22 12/26/23 Princess Min FNP [address] [place] [address] PCP - General Family Medicine 01/21/24 02/03/24 Princess Min FNP [address] [place] [address] PCP - General Family Medicine 02/10/24 Cherelle Roy Machine Tack PullerRn Or Lpn 01/24/25 documented as of this encounter
--- OUTSIDE RECORDS SUMMARY | 2025-04-18 17:38 | XMS_ITS | Encounter Summary ---
Author Organization [employer] Address 75 [facility] 7t [place] [address] Care Team Providers Care Bronc Breaker Name Role Phone Princess Min Primary Care Provider [phone] Princess Mni Primary Care Provider [phone] Reason for Visit * Reason Comments Med Change Request Encounter Details Date Type Department Care Team ([facility] st Contact Info) Description 12/28/2023 Refill [facility] MED & PEDS 505 [place], [place] [phone] Princess Min FNP [address] [place] [address] Social History Tobacco Use Types Packs/Day Years [...] Description 05/07/2025 10:15 AM EDT Office Visit [facility] MED & PEDS [address] [place], [place] [phone] Princess Min FNP [address] [place] [address] documented as of this encounter Visit Diagnoses Not on filedocumented in this encounter Additional Health Concerns Assessment Noted Time PHQ-9 Depression Total Score: 023 10:39 AM EDT documented as of this encounter Care Teams Bronc Breaker Relationship Specialty Start Date End Date Princess Min FNP [address] [place] [address] PCP - General Family Medicine 01/21/24 02/03/24 Princess Min FNP [address] [place] [address] PCP - General Family Medicine 02/10/24 Cherelle Roy Load CheckerRespooler 01/24/25 documented as of this encounter
--- OUTSIDE RECORDS SUMMARY | 2025-04-18 17:38 | XMS_ITS | Encounter Summary ---
Author Organization [employer] Address 75 [facility] 7t [place] [address] Care Team Providers Care College Sports Coach Name Role Phone Princess Min Primary Care Provider [phone] Princess Min Primary Care Provider [phone] Princess Min Primary Care Provider [phone] Reason for Visit * Reason Onset Date Comments PT1 04/27/2023 Encounter Details Date Type Department Care Team (Late st Contact Info) Description 04/27/2023 Telephone [facility] MEDICINE [address] [place] [address] Princess Min FNP [address] [place], [place] [phone] PT1 Social History Tobacco Use Types Packs/Day [...] Certification of Serious Illness is ready for roll picker at medical records. * Telephone Encounter - Barbie Montanez - 04/28/2023 3:58 PM EDT PT-1 submitted for patient. They will receive a letter of approval or denial in the mail. * Telephone Encounter - Velia Berry - 04/27/2023 4:43 PM EDT Tc form pt requesting PT1 Date: 05/06/23 Time: 10 AM address: [address] [place] [address] specialty: Psychologist # visits: n/a track fitter: no Wheelchair: no documented in this encounter Plan of Treatment Upcoming Encounters Date Type Department Care Team (Late st Contact Info) Description 05/07/2025 10:15 AM EDT Office Visit [facility] MED & PEDS 505 [place] [address] Princess Min FNP 505 [place] [address] documented as of this encounter Visit Diagnoses Not on filedocumented in this encounter Additional Health Concerns Assessment Noted Time PHQ-9 Depression Total Score: 10 023 10:39 AM EDT documented as of this encounter Care Teams College Sports Coach Relationship Specialty Start Date End Date Princess Min FNP [address] [place] [address] PCP - General Family Medicine 03/20/22 12/26/23 Princess Min FNP [address] [place] [address] PCP - General Family Medicine 01/21/24 02/03/24 Princess Min FNP [address] [place] [address] PCP - General Family Medicine 02/10/24 Cherelle Roy Transportation SupervisorTemperature Inspector 01/24/25 documented as of this encounter
--- OUTSIDE RECORDS SUMMARY | 2025-04-18 17:38 | XMS_ITS | Encounter Summary ---
Author Organization [employer] Address 75 [facility] 7t [place] [address] Care Team Providers Care Forestry And Wildlife Manager Name Role Phone Princess Min Primary Care Provider [phone] Princess Min Primary Care Provider [phone] Encounter Details Date Type Department Care Team (Late st Contact Info) Description 12/28/2023 Telephone [facility] MEDICINE [address] [place] [address] Princess Min FNP [address] [place], [place] [phone] Social History Tobacco Use Types Packs/Day Years [...] t he electric, gas, oil or water [employer] threatened to shut off services in your [...] Description 05/07/2025 10:15 AM EDT Office Visit [facility] MED & PEDS 505 [place] [address] Princess Min FNP 505 [place] [address] documented as of this encounter Visit Diagnoses Not on filedocumented in this encounter Additional Health Concerns Assessment Noted Time PHQ-9 Depression Total Score: 10 023 10:39 AM EDT documented as of this encounter Care Teams Forestry And Wildlife Manager Relationship Specialty Start Date End Date Princess Min FNP [address] [place] [address] PCP - General Family Medicine 01/21/24 02/03/24 Princess Min FNP [address] [place] [address] PCP - General Family Medicine 02/10/24 Cherelle Roy Leasing CoordinatorPermaculture Contractor 01/24/25 documented as of this encounter
--- OUTSIDE RECORDS SUMMARY | 2025-04-18 17:38 | XMS_ITS | Encounter Summary ---
Author Organization [employer] Address 75 [facility] 7t [place] [address] Care Team Providers Care Costume Specialist Name Role Phone Princess Min Primary Care Provider Reason for Visit * Reason Comments Med Refill Encounter Details Date Type Department Care Team ([facility] st Contact Info) Description 04/25/2024 Refill [facility] MEDICINE 230 [place] [address] Princess Min FNP [address] [place], [place] [phone] Social History Tobacco Use Types Packs/Day Years [...] Description 05/07/2025 10:15 AM EDT Office Visit [facility] MED & PEDS 505 [place] [address] Princess Min FNP 505 [place] [address] documented as of this encounter Visit Diagnoses Not on filedocumented in this encounter Additional Health Concerns Assessment Noted Time PHQ-9 Depression Total Score: 3 03/03/20 24 11:33 AM EDT documented as of this encounter Care Teams Costume Specialist Relationship Specialty Start Date End Date Princess Min FNP [address] [place] [address] PCP - General Family Medicine 02/10/24 Cherelle Roy Medical Imaging TechnologistMovie Star 01/24/25 documented as of this encounter
--- OUTSIDE RECORDS SUMMARY | 2025-04-18 17:38 | XMS_ITS | Encounter Summary ---
Author Organization [employer] Address 75 [facility] 7t [place] [address] Care Team Providers Care Environmental Sampling Technician Name Role Phone Princess Min Primary Care Provider Reason for Visit * Reason Onset Date Comments Med Refill 07/13/2024 Encounter Details Date Type Department Care Team ([facility] st Contact Info) Description 07/13/2024 Telephone [facility] MEDICINE [address] [place] [address] Princess Min FNP [address] [place], [place] [phone] Med Refill Social History Tobacco Use Types [...] 7:46 PM EST She is not on EARLY EDUCATION TEACHER, would need appt to discuss pain control. [...] for the pain. Please contact pt at [phone]. documented in this encounter Plan of Treatment Upcoming Encounters Date Type Department Care Team ([facility] st Contact Info) Description 05/07/2025 10:15 AM EDT Office Visit [facility] MED & PEDS 505 [place], [place] [phone] Princess Min FNP 505 [place], [place] [phone] documented as of this encounter Visit Diagnoses Not on filedocumented in this encounter Additional Health Concerns Assessment Noted Time PHQ-9 Depression Total Score: 3 03/03/20 24 11:33 AM EDT documented as of this encounter Care Teams Environmental Sampling Technician Relationship Specialty Start Date End Date Princess Min FNP [address] [place] [address] PCP - General Family Medicine 02/10/24 Cherelle Roy [place] Polisher OperatorCost Accounting Clerk 01/24/25 documented as of this encounter
--- OUTSIDE RECORDS SUMMARY | 2025-04-18 17:38 | XMS_ITS | Encounter Summary ---
Author Organization [employer] Address 75 [facility] 7t [place] [address] Care Team Providers Care Court Security Officer Name Role Phone Princess Min Primary Care Provider [phone] Princess Min Primary Care Provider [phone] Princess Min Primary Care Provider [phone] Reason for Visit * Reason Onset Date Comments PT1 request 10/19/2022 Encounter Details Date Type Department Care Team ([facility] st Contact Info) Description 10/19/2022 Telephone [facility] MEDICINE [address] [place] [address] Princess Min FNP [address] [place], [place] [phone] PT1 request Social History Tobacco Use Types [...] / denial letter via mail. PT-1 Request [id number] Authorized - [facility] PT-1 Request [id number] Pending [facility] Specialty [address] [place] [address] * Telephone Encounter - Alissa Winkler - 10/19/2022 11:55 AM EDT Tc from pt requesting PT1 Location:[facility] Specialty: Provider Date&Time:N/a Weights And Measures Inspector: yes Uses cane Location: 10 [facility] Specialty: Orthopedics Date&Time: N/a Weights And Measures Inspector: Yes Location:2 [facility] Specialty: [facility] Date&Time:N/a Weights And Measures Inspector: yes documented in this encounter Plan of Treatment Upcoming Encounters Date Type Department Care Team (Late st Contact Info) Description 05/07/2025 10:15 AM EDT Office Visit [facility] CH[facility] MED & PEDS 505 [place] [address] Princess Min FNP 505 [place] [address] documented as of this encounter Visit Diagnoses Not on filedocumented in this encounter Care Teams Court Security Officer Relationship Specialty Start Date End Date Princess Min FNP [address] [place] [address] PCP - General Family Medicine 03/20/22 12/26/23 Princess Min FNP [address] [place] [address] PCP - General Family Medicine 01/21/24 02/03/24 Princess Min FNP [address] [place] [address] PCP - General Family Medicine 02/10/24 Cherelle Roy Digital Production ManagerAngle Shearer 01/24/25 documented as of this encounter
--- OUTSIDE RECORDS SUMMARY | 2025-04-18 17:38 | XMS_ITS | Encounter Summary ---
Author Organization [employer] Address 75 [facility] 7t [place] [address] Care Team Providers Care Production Gear Cutter Name Role Phone Princess Min Primary Care Provider [phone] Reason for Visit * Reason Onset Date Comments Nurse Triage 09/27/2024 Encounter Details Date Type Department Care Team ([facility] st Contact Info) Description 09/27/2024 Telephone [facility] MEDICINE [address] [place] [address] Princess Min FNP [address] [place], [place] [phone] Nurse Triage Social History Tobacco Use Types [...] pt to triage, spoke to pt. through bethany harness worker. pt states went for surgery this morning, [...] distress. given appt with PCP [facility] at 11:15 for exam and recheck. pt [...] above 300 The caller accepted this outcome. [phone] [place] Pt states had knee surgery today but it couldn't be performed because the indicated that the wheezing should be checked first since he didn't know what could be happening with the pt and it couldinteract with the anesthesia. documented in this encounter Plan of Treatment Upcoming Encounters Date Type Department Care Team ([facility] st Contact Info) Description 05/07/2025 10:15 AM EDT Office Visit [facility] MED & PEDS 505 [place] [address] Princess Min FNP 505 [place] [address] documented as of this encounter Visit Diagnoses Not on filedocumented in this encounter Additional Health Concerns Assessment Noted Time PHQ-9 Depression Total Score: 3 03/03/20 24 11:33 AM EDT documented as of this encounter Care Teams Production Gear Cutter Relationship Specialty Start Date End Date Princess Min FNP [address] [place] [address] PCP - General Family Medicine 02/10/24 Cherelle Roy NeedleworkerPolice Detention Attendant 01/24/25 documented as of this encounter
--- OUTSIDE RECORDS SUMMARY | 2025-04-18 17:38 | XMS_ITS | Encounter Summary ---
Author Organization [employer] Address 75 [facility] 7t [place] [address] Care Team Providers Care Receiving Teller Name Role Phone Princess Min Primary Care Provider Reason for Visit * Reason Onset Date Comments Med Refill 02/11/2024 Encounter Details Date Type Department Care Team (Late st Contact Info) Description 02/11/2024 Telephone [facility] MEDICINE [address] [place] [address] Princess Min FNP [address] [place], [place] [phone] Med Refill Social History Tobacco Use Types [...] 1:02 PM EDT Medication was sent to [facility] on 11/29/23 with 3 refills. * Telephone Encounter - Drake Levy - 02/11/2024 11:57 AM EDT TC from pt requesting medication refill. Medications needing refill : Asmanex HFA 200 MCG/ACT aerosol To be sent to: [facility] [place], [place] - [address] [facility] documented in this encounter Plan of Treatment Upcoming Encounters Date Type Department Care Team (Late st Contact Info) Description 05/07/2025 10:15 AM EDT Office Visit [facility] MED & PEDS 505 [place] [address] Princess Min FNP 505 [place] [address] documented as of this encounter Visit Diagnoses Not on filedocumented in this encounter Additional Health Concerns Assessment Noted Time PHQ-9 Depression Total Score: 10 023 10:39 AM EDT documented as of this encounter Care Teams Receiving Teller Relationship Specialty Start Date End Date Princess Min FNP [address] [place] [address] PCP - General Family Medicine 02/10/24 Cherelle Roy Warp Knitting Machine OperatorCouture Dressmaker 01/24/25 documented as of this encounter
--- OUTSIDE RECORDS SUMMARY | 2025-04-18 17:38 | XMS_ITS | Encounter Summary ---
Author Organization [employer] Address 75 [facility] 7t [place] [address] Care Team Providers Care Frame Runner Name Role Phone Princess Min Primary Care Provider [phone] Princess Min Primary Care Provider [phone] Princess Min Primary Care Provider [phone] Reason for Visit * Reason Onset Date Comments PCP Switch 06/22/2023 Encounter Details Date Type Department Care Team ([facility] st Contact Info) Description 06/22/2023 Telephone [facility] MEDICINE [address] [place] [address] Princess Min FNP [address] [place], [place] [phone] PCP Switch Social History Tobacco Use Types [...] be seen by a doctor not a DIE CUTTER typewriter tester did express that it will be sometime before the change can take place patient is aware and ok with response. documented in this encounter Plan of Treatment Upcoming Encounters Date Type Department Care Team (Late st Contact Info) Description 05/07/2025 10:15 AM EDT Office Visit [facility] MED & PEDS 505 [place] [address] Princess Min FNP 505 [place] [address] documented as of this encounter Visit Diagnoses Not on filedocumented in this encounter Additional Health Concerns Assessment Noted Time PHQ-9 Depression Total Score: 10 023 10:39 AM EDT documented as of this encounter Care Teams Frame Runner Relationship Specialty Start Date End Date Princess Min FNP [address] [place] [address] PCP - General Family Medicine 03/20/22 12/26/23 Princess Min FNP [address] [place] [address] PCP - General Family Medicine 01/21/24 02/03/24 Princess Min FNP [address] [place] [address] PCP - General Family Medicine 02/10/24 Cherelle Roy Regulator OperatorOphthalmic Surgical Assistant 01/24/25 documented as of this encounter
--- OUTSIDE RECORDS SUMMARY | 2025-04-18 17:38 | XMS_ITS | Encounter Summary ---
Author Organization [employer] Address 75 [facility] 7t [place] [address] Care Team Providers Care Finisher Operator Name Role Phone Princess Min Primary Care Provider [phone] Princess Min Primary Care Provider [phone] Princess Min Primary Care Provider [phone] Reason for Visit * Reason Onset Date Comments Referral 11/20/2022 Encounter Details Date Type Department Care Team ([facility] st Contact Info) Description 11/20/2022 Telephone [facility] MEDICINE [address] [place] [address] Princess Min FNP [address] [place], [place] [phone] Referral Social History Tobacco Use Types Packs/Day [...] would like to [place] [facility] D[place] [facility] because of her strong [...] Specialty: Seth D[facility] Location:[address] [place] [address] Dr [address] [place] [address] Date&Time: n/a Cell Changer: n/a Please call pt to clarify. documented in this encounter Plan of Treatment Upcoming Encounters Date Type Department Care Team (Late st Contact Info) Description 05/07/2025 10:15 AM EDT Office Visit [facility] MED & PEDS 505 [place] [address] Princess Min FNP 505 [place] [address] documented as of this encounter Visit Diagnoses Not on filedocumented in this encounter Additional Health Concerns Assessment Noted Time PHQ-9 Depression Total Score: 24 023 9:25 AM EDT documented as of this encounter Care Teams Finisher Operator Relationship Specialty Start Date End Date Princess Min FNP [address] [place] [address] PCP - General Family Medicine 03/20/22 12/26/23 Princess Min FNP [address] [place] [address] PCP - General Family Medicine 01/21/24 02/03/24 Princess Min FNP [address] [place] [address] PCP - General Family Medicine 02/10/24 Cherelle Roy Conditioning CoachSfdc Architect 01/24/25 documented as of this encounter
--- OUTSIDE RECORDS SUMMARY | 2025-04-18 17:38 | XMS_ITS | Encounter Summary ---
Author Organization [employer] Address 75 [facility] 7t [place] [address] Care Team Providers Care Apprentice Painter Neckties Name Role Phone Princess Min Primary Care Provider [phone] Reason for Visit * Reason Comments Med Refill Encounter Details Date Type Department Care Team ([facility] st Contact Info) Description 09/15/2024 Refill [facility] MEDICINE 230 [place] [address] Princess Min FNP [address] [place], [place] [phone] Social History Tobacco Use Types Packs/Day Years [...] Description 05/07/2025 10:15 AM EDT Office Visit [facility] MED & PEDS 505 [place] [address] Princess Min FNP 505 [place] [address] documented as of this encounter Visit Diagnoses Not on filedocumented in this encounter Additional Health Concerns Assessment Noted Time PHQ-9 Depression Total Score: 3 03/03/20 24 11:33 AM EDT documented as of this encounter Care Teams Apprentice Painter Neckties Relationship Specialty Start Date End Date Princess Min FNP [address] [place] [address] PCP - General Family Medicine 02/10/24 Cherelle Roy Client Reporting AssociateScooper 01/24/25 documented as of this encounter
--- OUTSIDE RECORDS SUMMARY | 2025-04-18 17:38 | XMS_ITS | Encounter Summary ---
Author Organization [employer] Address 75 [facility] 7t [place] [address] Care Team Providers Care Provider Education Specialist Name Role Phone Princess Min Primary Care Provider Princess Min Primary Care Provider [phone] Princess Min Primary Care Provider Reason for Referral * Imaging (Routine) - Closed Specialty Diagnoses / Procedures Referred By Contnargis t Referred To Contact Diagnoses Encounter for screening mammogram for malignant neoplasm of breast Procedures BI Mammogram Screening Bilateral Princess Min FNP [address] [place] [address] Phone: tel: fax: [facility] [address] [place] [address] Phone: tel: fax: Referral ID Status Reason Start Date Expiration Date Visits Re quested Visits Authorized [id number] Closed 11/23/2022 05/22/2023 1 1 Reason for Visit * Reason Onset Date Comments Referral 11/20/2022 Encounter Details Date Type Department Care Team ([facility] st Contact Info) Description 11/20/[address] [facility] MEDICINE [address] [place] [address] Princess Min FNP [address] [place] [address] Referral Social History Tobacco Use Types Packs/Day [...] Please fax order for [place] [place] [facility] and call to let Ms. Garcia know when completed. Thank you. * Telephone Encounter - Alissa Winkler - 11/20/2022 10:16 AM EDT Tc from pt requesting a mammogram referral . Location [facility]. documented in this encounter Plan of Treatment Upcoming Encounters Date Type Department Care Team ([facility] st Contact Info) Description 05/07/2025 10:15 AM EDT Office Visit [facility] MED & PEDS [address] [place] [address] Princess Min FNP [address] [place] [address] Scheduled Orders Name Type Priority Associated Diagnoses [...] documented as of this encounter Care Teams Provider Education Specialist Relationship Specialty Start Date End Date Princess Min FNP [address] [place] [address] PCP - General Family Medicine 03/20/22 12/26/23 Princess Min FNP [address] [place] [address] PCP - General Family Medicine 01/21/24 02/03/24 Princess Min FNP [address] [place] [address] PCP - General Family Medicine 02/10/24 Cherelle Roy Visitor Services TechnicianCatering Coordinator 01/24/25 documented as of this encounter
--- OUTSIDE RECORDS SUMMARY | 2025-04-18 17:38 | XMS_ITS | Encounter Summary ---
Author Organization [employer] Address [address] [facility] 7t [place] [address] Care Team Providers Care Hydraulic Press Tender Name Role Phone Princess Min STEAM PLANT CONTROL ROOM OPERATOR Primary Care Provider [phone] Reason for Visit * Reason Comments Med Refill Encounter Details Date Type Department Care Team ([facility] st Contact Info) Description 04/17/2025 Refill [facility] [address] [place], [place] [phone] Princess Min FNP [address] [place], [place] [phone] Type 2 diabetes mellitus with hyperglycemia, with long-term current use of insulin ([facility]) Social History Tobacco Use Types Packs/Day [...] Answer Date Recorded Patient Health Questionnaire-9 Score 9 03/28/2025 Patient Health Questionnaire-9 Score 9 03/28/2025 Last PHQ-9: Questionnaire Data Not on file 0 03/28/2025 Housing Stability Answer Date Recorded What is your housing situation today? I have housing today, but I am worried about losing housing in the future 03/28/[address] you li ve. Do you have problems with any of the following? None of the above 03/28/2025 Food Insecurity Answer Date Recorded Within the past 12 months, y ou worried that your food would run out before you got money to buy more: Sometimes True 2024 Within the past 12 months,th e food you bought just didn't last and you didn't have enough money to get more: Sometimes True 03/28/2025 Transportation Answer Date Recorded In the past 12 months, has l ack of transportation kept you from medical appts, meetings, work or from getting things needed for daily living? Yes, it has kept me from medical appointments or getting medications. 01/05/2025 Utilities Answer Date Recorded In the past 12 months, has t he [employer], gas, oil or water [employer] threatened to shut off services in your home? Yes 03/28/2025 Depression Answer Date Recorded Patient Health Questionnaire-2 Score 4 03/28/2025 Internet Access Answer Date Recorded Internet Access [...] Description 05/07/2025 10:15 AM EDT Office Visit [facility] [address] [place] [address] Princess Min FNP [address] [place] [address] documented as of this encounter Visit Diagnoses Diagnosis Type 2 diabetes mellitus with hyperglycemia, with long-term current use of insulin ([facility]) documented in this encounter Additional Health Concerns Assessment Noted Time PHQ-9 Depression Total Score: 9 03/28/20 25 11:35 AM EDT documented as of this encounter Care Teams Hydraulic Press Tender Relationship Specialty Start Date End Date Princess Min FNP [address] [place] [address] PCP - General Family Medicine 02/10/24 Cherelle Roy Residential Solar ConsultantSourcing Assistant 01/24/25 documented as of this encounter
--- OUTSIDE RECORDS SUMMARY | 2025-04-18 17:38 | XMS_ITS | Encounter Summary ---
Author Organization [employer] Address [address] [facility] 7t [place] [address] Care Team Providers Care Resource Development Director Name Role Phone Mechelle Princess APARTMENT MAINTENANCE Primary Care Provider [phone] Encounter Details Date Type Department Care Team ([facility] Contact Info) Description 01/22/2025 Refill [facility] [address] [place], [place] [phone] Princess Min FNP [address] [place], [place] [phone] Social History Tobacco Use Types Packs/Day Years [...] got money to buy more: Never True 01/05/2025 Within the past 12 months,th e food [...] Description 05/07/2025 10:15 AM EDT Office Visit [facility] MED & PEDS [address] [place] [address] Princess Min FNP [address] [place] [address] documented as of this encounter Visit Diagnoses Not on filedocumented in this encounter Additional Health Concerns Assessment Noted Time PHQ-9 Depression Total Score: 3 03/03/20 24 11:33 AM EDT documented as of this encounter Care Teams Resource Development Director Relationship Specialty Start Date End Date Princess Min FNP [address] [place] [address] PCP - General Family Medicine 02/10/24 Cherelle Roy Defensive Fire Control Systems OperatorBusiness Continuity Global Director 01/24/25 documented as of this encounter
--- OUTSIDE RECORDS SUMMARY | 2025-04-18 17:38 | XMS_ITS | Encounter Summary ---
Author Organization [employer] Address [address] [facility] 7t [place] [address] Care Team Providers Care Director Of Acquisitions Name Role Phone Princess Min Primary Care Provider [phone] Princess Min Primary Care Provider [phone] Reason for Visit * Reason Comments Med Refill Encounter Details Date Type Department Care Team ([facility] st Contact Info) Description 02/03/2024 Refill [facility] [address] [place] [address] Princess Min FNP [address] [place], [place] [phone] Hypothyroidism, unspecified type Social History Tobacco Use [...] 10:15 AM EDT Office Visit [facility] MED & PEDS [address] [place] [address] Princess Min FNP [address] [place] [address] documented as of this encounter Visit Diagnoses Diagnosis Hypothyroidism, unspecified type documented in this encounter Additional Health Concerns Assessment Noted Time PHQ-9 Depression Total Score: 10 023 10:39 AM EDT documented as of this encounter Care Teams Director Of Acquisitions Relationship Specialty Start Date End Date Princess Min FNP [address] [place] [address] PCP - General Family Medicine 01/21/24 02/03/24 Princess Min FNP [address] [place] [address] PCP - General Family Medicine 02/10/24 Cherelle Roy Laborer Construction Or Leak GangUtilization Manager 01/24/25 documented as of this encounter
--- OUTSIDE RECORDS SUMMARY | 2025-04-18 17:38 | XMS_ITS | Encounter Summary ---
Author Organization [employer] Address [address] [facility] 7[address] [place] [address] Care Team Providers Care Student Support Advisor Name Role Phone Princess Min Primary Care Provider [phone] Princess Min Primary Care Provider [phone] Princess Min Primary Care Provider [phone] Reason for Visit * Reason Comments Med Refill Encounter Details Date Type Department Care Team ([facility] Contact Info) Description 08/07/2022 Refill [facility] MEDICINE [address] [place] [address] Princess Min FNP [address] [place], [place] [phone] Cervical spondylosis Social History Tobacco Use Types [...] Department Care Team (Late Contact Info) Description 05/07/2025 10:15 AM EDT Office Visit [facility]EDS [address] [place], [place] [phone] Princess Min FNP [address] [place] [address] documented as of this encounter Visit Diagnoses Diagnosis Cervical spondylosis Cervical spondylosis without myelopathy documented in this encounter Care Teams Student Support Advisor Relationship Specialty Start Date End Date Princess Min FNP [address] [place] [address] PCP - General Family Medicine 03/20/22 12/26/23 Princess Min FNP [address] [place] [address] PCP - General Family Medicine 01/21/24 02/03/24 Princess Min FNP [address] [place] [address] PCP - General Family Medicine 02/10/24 Cherelle Roy International ManagerEdge Molder 01/24/25 documented as of this encounter
--- OUTSIDE RECORDS SUMMARY | 2025-04-18 17:38 | XMS_ITS | Encounter Summary ---
Author Organization [employer] Address [address] [facility] 7t [place] [address] Care Team Providers Care Service Desk Agent Name Role Phone Princess Min Primary Care Provider [phone] Princess Min Primary Care Provider [phone] Princess Min Primary Care Provider [phone] Reason for Visit * Reason Onset Date Comments Appointment Request 08/03/2022 Encounter Details Date Type Department Care Team ([facility] st Contact Info) Description 08/03/2022 Telephone [facility] MEDICINE [address] [place] [address] Princess Min FNP [address] [place], [place] [phone] Appointment Request Social History Tobacco Use Types [...] 12:26 PM EST Returned pt call via P/I#[id number], pt cancelled todays [employer] LE[employer] appt scheduled 11am. Pt previously cancelled 07/16/22 [employer] LE[employer] appt. Attempted to reschedule appt, offered 3 alternate times. 08/04/22, pt stated she will be in [place] for her sisters and back by 5pm. Offered her a time on 08/05/22, pt stated she doesn't know when she will be back. Offered her an appt today, 1 hour from now, beforeshe leaves for [place]. She said she will be long on her way to [place]. 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 Pt stated she will call back when she is available to reschedule. Will FYI PCP. * Telephone Encounter - Jareth Cifuentes - 08/03/2022 11:54 AM EST Tc from pt requesting to r/s appt 08/03/22 ( [employer] LEAD[employer]) pt states not able to come due to a lost in the family. Please contact pt at [phone] documented in this encounter Plan of Treatment Upcoming Encounters Date Type Department Care Team (Late st Contact Info) Description 05/07/2025 10:15 AM EDT Office Visit [facility] MED & PEDS [address] [place] [address] Princess Min FNP [address] [place] [address] documented as of this encounter Visit Diagnoses Not on filedocumented in this encounter Care Teams Service Desk Agent Relationship Specialty Start Date End Date Princess Min FNP [address] [place] [address] PCP - General Family Medicine 03/20/22 12/26/23 Princess Min FNP [address] [place] [address] PCP - General Family Medicine 01/21/24 02/03/24 Princess Min FNP [address] [place] [address] PCP - General Family Medicine 02/10/24 Cherelle Roy Drafter MechanicalInstruction Assistant Principal 01/24/25 documented as of this encounter
--- OUTSIDE RECORDS SUMMARY | 2025-04-18 17:38 | XMS_ITS | Encounter Summary ---
Author Organization [employer] Address [address] [facility] 7t [place] [address] Care Team Providers Care Ruby On Rails Engineer Name Role Phone Princess Min Primary Care Provider [phone] Princess Min Primary Care Provider [phone] Reason for Visit * Reason Onset Date Comments New Med Request 02/03/2024 Encounter Details Date Type Department Care Team (Late st Contact Info) Description 02/03/2024 Telephone [facility] MEDICINE [address] [place] [address] Princess Min FNP [address] [place], [place] [phone] New Med Request Social History Tobacco Use [...] Description 05/07/2025 10:15 AM EDT Office Visit [facility] MED & PEDS [address] [place] [address] Princess Min FNP [address] [place] [address] documented as of this encounter Visit Diagnoses Not on filedocumented in this encounter Additional Health Concerns Assessment Noted Time PHQ-9 Depression Total Score: 10 023 10:39 AM EDT documented as of this encounter Care Teams Ruby On Rails Engineer Relationship Specialty Start Date End Date Princess Min FNP [address] [place] [address] PCP - General Family Medicine 01/21/24 02/03/24 Princess Min FNP [address] [place] [address] PCP - General Family Medicine 02/10/24 Cherelle Roy Medical TranslatorDirect Support Professional Caregiver 01/24/25 documented as of this encounter
--- OUTSIDE RECORDS SUMMARY | 2025-04-18 17:38 | XMS_ITS | Clinical Summary ---
Author Organization [email or web address] Address [address] [facility] [address] [place] [address] Care Team Providers Care Thermal Technician Name Role Phone Princess Min IS/IT PROJECT MANAGER Primary Care Provider [phone] Allergies Active Allergy Reactions Criticality Noted Date [...] 0.1 mL into affected nostril(s). 2020 Active TRUEplus Lancets 33G miscIndications:Type 2 diabetes mellitus with hyperglycemia, unspecified whether meterman insulin use ([facility]) TEST BLOOD SUGAR TWICE DAILY 100 each 11 2022 Active Respiratory Therapy Supplies (Nebulizer/Tubing/Mout hpiece) kit Use as needed with albuterol nebulizer solution 1 kit 2022 Active fluticasone (Flonase) 50 MCG/ACT nasal [...] MOUTH EVERYDAY AT NOON 90 tablet 3 01/16/ 2024 Active insulin pen needle (UltiGuard SafePack Pen Needle) 32G x 4 mm miscIndications:Type 2 diabetes mellitus with hyperglycemia, with long-term current use of insulin ([facility]) USE WITH INSULIN DIRECTED 100 each 11 2023 Active metFORMIN (Glucophage) 500 MG tablet Take 2 tablets by mouth 2 times daily. 2023 Active albuterol (Ventolin HFA) 108 (90 Base) MCG/ACT inhalerIndications:Mil d persistent asthma without complication INHALE 2 PUFFS BY MOUTH EVERY 4 TO 6 HOURS NEEDED 18 g 11 2023 Active acetaminophen (Tylenol 8 Hour) 650 [...] complication, with long-term current use of insulin ([facility]) Use as instructed with Victoza injections 100 each 12 06/14 Active cyanocobalamin (Vitamin B-12) 1000 MCG tabletIndications:Beto mando deficiency TAKE 1 TABLET BY MOUTH EVERYDAY AT NOON 90 tablet 3 2023 Active irbesartan (Avapro) 300 MG tabletIndications:Prim chiquis hypertension TAKE 1 TABLET BY MOUTH EVERYDAY AT NOON 90 tablet 3 2024 Active ammonium lactate (Lac-Hydrin) 12 % lotion APPLY TOPICALLY TO THE AFFECTED AREA(S) OF THE HEELS EVERY DAY AT BEDTIME, THEN WEAR SOCKS TO BED 225 g 3 2024 Active albuterol (2.5 MG/3ML) 0.083% nebulizer solution Take 3 mL by nebulization every 6 (six) hours if needed for wheezing or shortness of breath. 75 mL 2 2024 Active melatonin 5 MG tablet Take 1 tablet (5 mg) by mouth at bedtime. 30 tablet 11 09/15 Active Humidifier miscIndications:Modera te persistent asthma without complication Use as needed 1 each 2024 Active lidocaine (Lidoderm) 5 % patchIndications:Arthr itis of knee APPLY 2 PATCHES TOPICALLY TO AFFECTED AREA(S) OF KNEE LEFT AND HIP RIGHT NEEDED FOR PAIN, LEAVE ON FOR 12 HOURS AND OFF FOR 12 HOURS 60 patch 5 2024 Active empagliflozin (Jardiance) 10 MG Take 1 tablet (10 mg) by mouth Once per day. 90 tablet 1 12/28 Active Ketotifen Fumarate 0.035 % solution Administer 1 drop into affected eye(s) if needed in the morning and at bedtime (eye itching and redness). 10 mL 2 2024 Active levothyroxine (Synthroid, Levoxyl) 150 MCG tabletIndications:Hypo thyroidism, unspecified type TAKE 1 TABLET BY MOUTH EVERY MORNING BEFORE BREAKFAST 90 tablet 3 2024 Active carvedilol (Coreg) 3.125 MG tablet TAKE 1 TABLET BY MOUTH TWICE DAILY IN THE MORNING AND IN THE EVENING 2024 Active Breo Ellipta 200-25 MCG/ACT aerosol powder INHALE 1 PUFF BY MOUTH EVERY DAY AT THE SAME TIME RINSE MOUTH AFTER USING 2024 Active pantoprazole (ProtoNix) 20 MG EC tablet TAKE 1 TABLET BY MOUTH EVERY DAY BEFORE BREAKFAST. DO NOT BREAK, CRUSH, DISSOLVE OR CHEW. 90 tablet 3 2024 Active furosemide (Lasix) 20 MG tabletIndications:Program Arranger maria fernanda diastolic heart failure (CMS/HCC) TAKE 1 TABLET BY MOUTH EVERY DAY AT NOON 90 tablet 2024 Active FREESTYLE LITE test stripIndications:Type 2 diabetes mellitus without complication, with long-term current use of insulin (CMS/HCC) TEST BLOOD SUGAR TWICE DAILY 100 strip 11 2024 Active topiramate (Topamax) 200 MG tabletIndications:Othe r migraine without status migrainosus, not intractable TAKE 1 TABLET BY MOUTH AT BEDTIME 90 tablet 1 2024 Active montelukast (Singulair) 10 MG tablet TAKE 1 TABLET BY MOUTH AT BEDTIME 90 tablet 3 2024 Active Tirzepatide (Mounjaro) 2.5 MG/0.5ML solution auto-injector Inject 2.5 mg under the skin 1 (one) time per week. 2 mL 1 04/27 Active amitriptyline (Elavil) 50 MG tablet Take 1 tablet (50 mg) by mouth at bedtime. 90 tablet 1 2024 Active amLODIPine (Norvasc) 5 MG tablet TAKE 1 TABLET BY MOUTH AT BEDTIME 30 tablet 2024 Active Lantus SoloStar 100 UNIT/ML penIndications:Type 2 diabetes mellitus with hyperglycemia, with long-term current use of insulin ([facility]) INJECT 28 UNITS SUBCUTANEOUSLY AT BEDTIME 15 mL 3 2024 Active amLODIPine (Norvasc) 5 MG tablet TAKE 1 TABLET BY MOUTH AT BEDTIME 03/21 Discontinued( Reorder (will not trigger notification to Pharmacy)) montelukast (Singulair) 10 MG tablet TAKE 1 TABLET BY MOUTH AT BEDTIME 90 tablet 3 03/21 Discontinued( Reorder (will not trigger notification to Pharmacy)) amitriptyline (Elavil) 50 MG tablet Take 1 tablet (50 mg) by mouth at bedtime. 90 tablet 1 04/13 Discontinued( Reorder (will not trigger notification to Pharmacy)) Lantus SoloStar 100 UNIT/ML penIndications:Type 2 diabetes mellitus with hyperglycemia, with long-term current use of insulin ([facility]) INJECT 28 UNITS SUBCUTANEOUSLY AT BEDTIME 15 mL 3 04/18 Discontinued Dulaglutide (Trulicity) 3 MG/0.5ML solution auto-injectorIndicatio ns:Type 2 diabetes mellitus without complication, with long-term current use of insulin ([facility]) Inject 3 mg under the skin 1 (one) time per week. 2 mL 2 03/28 Discontinued( Therapy completed) amLODIPine (Norvasc) 5 MG tablet TAKE 1 TABLET BY MOUTH AT BEDTIME 30 tablet 04/13 Discontinued( Reorder (will not trigger notification to Pharmacy)) Active Problems Problem Noted Date Diagnosed Date Pulmonary nodule 01/08/2025 Overview (01/08/2025): Followed by [facility] Pulm November 2024: Calcified right upper lobe granuloma identified on CT. Plan: repeat 1 year Risk factors: tobacco use Tobacco use 01/08/2025 Overview (01/08/2025): - Cigg/day: 3 - Encouraged smoking cessation resources such as pharmacomtherapy, [facility] smoking cessation group, and [facility] pharmacy smoking cessation clinic - Lung CA screening followed by [facility] Pul - November 2024: Chest CT demonstrated calcified right upper lobe granuloma. Next due: November 2025 History of total knee arthroplasty, left 024 Overview (04/02/2024): 06/09/23 at [facility] - Dr. Laureano Assessment & Plan (01/08/2025 3:10 PM EDT): - Persistent pain with (+) effusion s/p fall at home - XR Feb 2024 in [facility] ED demonstrated increased demineralization along the subjacent proximal tibia, particularly subjacent to the medial flange of the prosthesis with possibile slight medial settling. Large joint effusion. - Apr 2024: Synovasure aspiration left knee by Dr. Laureano. Elevated CRP/sed rate. Joint fluid sent for testing. - Initially scheduled for revision surgery 09/27/24, on hold d/t recommendation for improved asthma control. Following with [facility] Pul and reports breathing well controlled with current regimen. However, T2DM currently not well controlled - Pain control: APAP prn. Short course of oxycodone 5mg daily prn severe pain (5 tablets total), No refills. Reviewed med safety and SE. Assessment & Plan (10/01/2024 7:35 PM EDT): - Persistent pain with (+) effusion s/p fall at home - XR Feb 2024 in [facility] ED demonstrated increased demineralization along the subjacent proximal tibia, particularly subjacent to the medial flange of the prosthesis with possibile slight medial settling. Large joint effusion. - Apr 2024: Synovasure aspiration left knee by Dr. Laureano. Elevated CRP/sed rate. Joint fluid sent for testing. - Initially scheduled for revision surgery 09/27/24, but not cleared by anaesthesia. Now pending Pulm clearance (referral through [facility] Ortho to [facility] Pulm) Assessment & Plan (05/28/2024 7:19 AM EST): - Persistent pain with (+) effusion s/p fall at home - XR Feb 2024 in [facility] ED demonstrated increased demineralization along the subjacent [...] Assessment & Plan (02/07/2023 12:45 PM EDT): Currently using omeprazole PRN Reports that pantoprazole was more beneficial in the past, interested in switching PPI DISCONTINUE omeprazole START pantoprazole 20mg PRN. Reviewed med use [...] use, fewer than expected pills, and multiple SYSTEM OPERATOR cancellations and NCNS, continue with taper for [...] -Left TKA performed 06/09/[address] Laureano ([facility] Ortho) Assessment & Plan (03/04/2024 6:12 PM EDT): DME requests for the following items placed 03/04/24: Shower chair Commode Hand Held Shower Head Assessment & Plan (10/18/2022 10:18 AM EDT): -DME for cane requested Migraine 04/15/2018 Overview (05/28/2024): Continues with Topiramate 200mg nightly and amitriptyline 50mg at bedtime Reports well controlled with current regimen Moderate persistent asthma without complication 09/08/2017 Overview (01/08/2025): -Following with [facility] pulmonology -Continues with Breo Ellipta 200 mcg daily, Singulair 10mg nightly, and Albuterol PRN -DME request for nebulizer 09/18/2024 (received) -DME request for humidifier sent to pharmacy on 09/29/24 Assessment & Plan (01/08/2025 2:48 PM EDT): - well-controlled, continue current regimen - follow up precautions reviewed such as if using rescue inhaler > 2x/week Assessment & Plan (10/01/2024 7:34 PM EDT): [...] although difficulties with insurance coverage. -Spoke with [facility] pharmacy, will attempt to change to generic albuterol to see if works better for pt Diastolic heart failure 02/03/2017 Overview (05/28/2024): -Continues on Irbestartan 300mg daily at bedtime, furosemide 40mg daily, on SGLT2 -Following with [facility] - Dr. Calle -Pt denies SOB, swelling in extremities, difficulty breathing Assessment & Plan (01/08/2025 3:08 PM EDT): - reports [facility] - will refer to [facility] Cards. Reviewed importance of keeping scheduled appts or calling to schedule Cervical spondylosis 10/19/2016 Fibroma 06/10/2016 Diabetes mellitus 05/27/2016 Overview (03/28/2025): Lab Results Component Value Date HGBA1C 7.9 (A) 03/28/2025 HGBA1C 10.3 (A) 01/05/2025 HGBA1C 7.9 (A) 09/20/2024 HGBA1C 6.4 (H) 09/04/2024 HGBA1C 5.6 04/18/2024 HGBA1C 6.5 (H) 04/27/2023 -A1c goal </= 7.0% Medications: -Jardiance 10mg daily (SGLT2) -Lantus 28 units SQ nightly -Mounjaro 2.5mg subcutaneous weekly (GLP1) -Metformin 1000 mg BID -Lifestyle recommendations reviewed -Pt to follow up with [facility] Endo Previous medications: - Ozempic (DC in May 2024 d/t SE - itching) - Trulicity (DC 03/28/25 d/t switch to Mounjaro) Assessment & Plan (03/28/2025 4:28 PM EDT): - Congratulated on improvement - Discontinue Trulicity - Start Mounjaro 2.5mg subcutaneous weekly. Reviewed med safety and SE - F/up 4-6 weeks as scheduled, sooner as needed Assessment & Plan (01/08/2025 3:06 PM EDT): - Not well controlled - Increase Trulicity to 3mg subcutaneous weekly - Follow up with specialist as scheduled, PCP office sooner PRN Assessment & Plan (03/04/2024 6:11 PM EDT): [...] and exercise as able Assessment & Plan (01/08/2025 3:07 PM EDT): Cont current regimen Assessment & Plan (05/28/2024 7:26 AM EST): Cont current regimen Assessment & Plan (03/04/2024 6:22 PM EDT): Elevated in office, although appears well controlled per home readings (130/80s). Continue current therapy and following with Cards. 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 Mixed anxiety and depressive disorder 10/06/2013 Assessment & Plan (05/28/2024 7:27 AM EST): -Following with psych team from [facility] -Continue with Wellbutrin 300mg daily, -Denies [...] Encounters Date Type Department Care Team Description 04/17/2025 Refill [facility] [address] [place] [address] Princess Min FNP Type 2 diabetes mellitus with hyperglycemia, with long-term current use of insulin ([facility]) 04/13/2025 Refill [facility] [address] [place] [address] Princess Min FNP 03/29/2025 Telephone [facility] [address] [place] [address] Princess Min FNP 03/28/2025 10:15 AM EDT Office Visit [facility] [address] [place] [phone] Princess Min FNP Type 2 diabetes mellitus without complication, with long-term current use of insulin (CMS/[facility]) (Primary Dx); Dietary counseling; Exercise counseling; Stress incontinence 03/28/2025 Telephone [facility] [address] [place] [address] Princess Min FNP Care Coordination 03/28/2025 Travel 03/27/2025 Telephone [facility] [address] [place] [phone] Princess Min FNP CHART PREP 03/21/2025 Refill [facility] [address] [place] [address] Princess Min FNP 03/13/2025 Telephone [facility] [address] [place] [address] Princess Min FNP Medication Question 03/08/2025 Refill [facility] [address] [place] [address] Princess Min FNP Other migraine without status migrainosus, not intractable 03/02/2025 Patient Outreach [facility] [address] [place] [phone] Princess Min FNP Care Coordination ([facility] outreach for SDOH food needs-referral completed /) 03/01/2025 Telephone [facility] [address] [place] [address] Princess Min FNP 02/24/2025 Refill [facility] [address] [place] [address] Princess Min FNP Type 2 diabetes mellitus without complication, with long-term current use of insulin ([facility]) 02/16/2025 Refill [facility] [address] [place] [address] Princess Min FNP Chronic diastolic heart failure ([facility]) 02/12/2025 Patient Outreach [facility] [address] [place] [address] Princess Min FNP Care Coordination ([facility] outreach for SDOH PT-1 and food needs-referral completed /) 02/12/2025 Telephone [facility] [address] [place] [phone] Princess Min FNP p t1 02/12/2025 Telephone [facility] [address] [place] [address] Corina Pina MD No Show 02/07/2025 Refill [facility] [address] [place] [address] Princess Min FNP 01/24/2025 Telephone [facility] [address] [place] [phone] Princess Min FNP Care Coordination (ICP Care Plan) 01/22/2025 Refill [facility] [address] [place] [address] Princess Min FNP 01/16/2025 Telephone [facility] [address] [place] [address] Princess Min FNP Medication Question from Last 3 Months Immunizations Immunization Administration [...] Day Cigarettes 0.3 38 Smokeless Tobacco: Never Tobacco Cessation:Ready to Q uit: Not Asked; Counseling Given: Not Answered Alcohol Use Standard Drinks/Week Comments Not Currently [...] got money to buy more: Sometimes True 09/03/ 2025 Within the past 12 months,th e food [...] Sign Reading Time Taken Comments Blood Pressure 140/80 03/28/2025 10:42 AM EDT Pulse 60 03/28/2025 10:42 AM EDT Temperature 37.1 C (98.7 F) 03/28/2025 10:42 AM EDT Respiratory Rate 14 03/28/2025 10:42 AM EDT Oxygen Saturation 97% 03/28/2025 10:42 AM EDT Inhaled Oxygen Concentration - - Weight 104 kg (229 lb 6.4 oz) 03/28/2025 10:42 A M EDT Height 154.9 cm (5' 1 ) 01/05/2025 11:00 AM EDT Body Mass Index 43.34 01/05/2025 11:00 AM EDT Plan of Treatment Upcoming Encounters Date Type Department Care Team (Late st Contact Info) Description 05/07/2025 10:15 AM EDT Office Visit [facility] [address] [place] [address] Princess Min FNP [address] [place], [place] [phone] Health Maintenance Due Date Last Done Comments CT Colonography 1963 Dental Oral Exam 1963 Dental Prophylaxis 1963 Dental X-Ray: Bitewings 1963 Dental X-Ray: Full Mouth 1963 FIT DNA/Cologuard 1963 FIT 1963 FOBT 1963 Sigmoidoscopy 1963 Disability Screening 1963 Diabetes: Foot Exam 1973 Eye Exam 1973 Pap Smear 1984 HPV/Cotest 1993 Mammogram 02/10/2024 02/09/2023, 02/08/2019 COVID-19 Vaccine ( season) 2025 12/08/2022, 08/06/2021, 12/03/2020, Additional history exists Influenza Vaccine (#1) 2025 , 05/05/2023, 04/28/2022, Additional history exists Diabetes: Hemoglobin A1C 06/27/2025 025, 01/05/2025, 09/20/2024, Additional history exists Diabetes: Urine Protein Screening 09/18/2025 09/18/2024, 04/05/2023, 03/11/2021, Additional history exists Lipid Panel 09/18/2025 09/18/2024, 03/26, 10/07/2021, Additional history exists Depression Monitoring 09/25/2025 03/28/2025, 025 SDOH Screening 01/05/2026 01/05/2025 Alcohol/Substance Use Screening 03/28/2026 03/28/2025 Tobacco Screening 03/28/2026 03/28/2025 Colonoscopy 05/24/2027 05/24/2017 Colorectal Cancer Screening 05/24/2027 DTaP/Tdap/Td Vaccines (4 - Td or Tdap) 12/08/2032 12/08/2022, 07/09/2012, 04/07/2010, Additional history exists Hepatitis B Vaccines Completed 05/19/2018, 08/20/2017, 07/16/2017 Zoster Vaccines Completed 04/28/2022, 12/23/2021 Pneumococcal Vaccine: 50+ Years Completed 05/05/2022, 09/23/2016, 08/06/2000 RSV Patients and Patients Aged 60 years or older Completed 12/23/2023 HIV Screening Completed 09/18/2024, 09/24, 10/07/2021 Hepatitis [...] Diagnosis Comments POCT GLYCATED HEMOGLOBIN, TOTAL Routine 03/28/2025 10:58 AM EDT Type 2 diabetes mellitus without complication, with long-term current use of insulin ([facility]) POCT GLUCOSE Routine 03/28/2025 10:48 AM EDT Type 2 diabetes mellitus without complication, with long-term current use of insulin ([facility]) ALBUMIN, RANDOM URINE W/CREATININE Routine 09/18/2024 11:31 AM EST Healthcare maintenance HEPATITIS C VIRAL RNA, QUANTITATIVE, REAL-TIME PCR Routine 09/18/2024 11:22 AM EST Healthcare maintenance HIV 1/2 ANTIGEN/ANTIBODY, FOURTH GENERATION W/RFL Routine 09/18/2024 11:22 AM EST Healthcare maintenance LIPID PANEL, STANDARD Routine 09/18/2024 11:02 AM EST Healthcare maintenance BI MAMMOGRAM SCREENING TOMOSYNTHESIS BILATERAL Routine 02/09/2023 11:07 AM EDT HM COLONOSCOPY Routine 05/24/2017 from Last 3 Months or Most Recently Relevant to Health Maintenance Results * (ABNORMAL) POCT HGB A1C (03/28/2025 10:58 AM EDT) Hemoglobin A1C 7.9(A) 4.0 - 5.7 % QC Media Lot # [id number] Lot# Expiration Date , Blood 03/28/2025 10:5 8 AM EDT us Princess Min IS/IT PROJECT MANAGER POINT OF CARE TEST ENTER/EDIT ORDERABLES Final Result * POCT Glucose (03/28/2025 10:48 AM EDT) Glucose Blood, POC 161 60 - 200 mg/dL QC Media Lot # [id number] Lot# Expiration Date [id number] Blood Capillary blood specimen / Unknown 03/28/2025 10:48 AM EDT us Princess MAHANP POINT OF CARE TEST ENTER/EDIT ORDERABLES Final Result * Albumin, Random Urine W/Creatinine (09/18/2024 11:31 AM EST) Creatinine, Urine 65.49 mg/dL [facility] Microalbumin Urine 8.0 mg/L [facility] Microalbum Creatinine Ratio Ur 12.2 <30 ug/mg cr [facility] Comment:Albumin/Creatinine R atio Reference Ranges: Normal: < 30 ug/mg creatinine Microalbuminuria: 30 - 300 ug/mg creatinineClinical Albuminuria: > 300 ug/mg creatinine Urine 09/18/2024 11:3 1 AM EST 09/18/2024 2:41 PM EST us Princess Min IS/IT PROJECT MANAGER LAB URINE ORDERABLES Final Res ult [facility] [address] [place] [address] [phone] * Hepatitis C Viral RNA, Quantitative, Real-Time PCR (09/18/2024 11:22 AM EST) Pathologist [facility] Hepatitis C Viral Load <15 NOT DETECTED NOT DETECTED IU/mL [facility] HCV Log PCR <1.18 NOT DETECTED NOT DETECTED Log IU/mL [facility] Comment:For additional infor gillian, please refer [email or web address]/[email or web address](This link is being provided for informational/educational purposes only.)THIS TEST WAS PERFORMED AT:[email or web address] [place] [id number] GARCIA MD Blood 09/18/2024 11:2 2 AM EST 09/18/2024 2:41 PM EST Princess Min [facility] BLOOD ORDERABLES Final Res ult Performing Organization Address [facility] Co de Phone Number [facility] [address] [place] [address] [phone] * HIV-1/2 Antigen and Antibodies, Fourth Generation, with Reflexes (09/18/2024 11:22 AM EST) Pathologist [facility] HIV AB/AG Nonreactive Nonreactive [facility] Comment:HIV-1 p24 Ag and/or HIV-1/HIV-2 Ab not detected.A test result that is nonreactive does not exclude thepossibility of exposure to or infection with HIV-1 and/orHIV-2. Nonreactive results in this assay for individualswith prior exposure to HIV-1 and/or HIV-2 may be due toantigen and antibody levels that are below the limit ofdetection of this assay.The [employer] HIV Ag/Ab Combo assay result andsupplemental assay results should be interpreted inconjunction with the patient's clinical presentation,history and other laboratory results. If the results areinconsistent with clinical evidence, additional testing issuggested to confirm the result. Blood Venous blood specimen / Unknown 09/18/2024 11:22 AM EST 09/18/2024 2:41 PM EST Princess Min [facility] BLOOD ORDERABLES Final Res ult Performing Organization Address City/[facility] Co de Phone Number [facility] [address] [place] [phone] * Lipid Panel, Standard (09/18/2024 11:02 AM EST) Triglycerides 136 <150 mg/dL [facility] Comment:Desirable Triglyceri de: less than 150 mg/dLBorderline High Triglyceride 150-199 mg/dLHigh Triglyceride: 200-499 mg/dLVery High Triglyceride: greater than or equal to 5OO mg/dL Cholesterol 156 <200 mg/dL [facility] Comment:Desirable Cholestero l: less than 200 mg/dLBorderline High Cholesterol: 200-239 mg/dLHigh Cholesterol: greater than 239 mg/dL LDL Cholesterol Calculated 75 <100 mg/dL [facility] Comment:Desirable LDL: less than 100 mg/dLNear Optimal/Above Optimal LDL: 110- 129 mg/dLBorderline High LDL: 130-159 mg/dLHigh LDL: 160-189 mg/dLVery High LDL: greater than or equal to 190 mg/dL HDL Cholesterol 54 >40 mg/dL [facility] Comment:Desirable HDL: great er than 40 mg/dL Note: This HDL assay may give artificially low results in patients with liver disease. Blood Venous blood specimen / Unknown 09/18/2024 11:02 AM EST 09/18/2024 2:41 PM EST Princess Min [facility] BLOOD ORDERABLES Final Res ult Performing Organization Address City/[facility]/ZIP Co de Phone Number [facility] [address] [place] [phone] * BI Mammogram Screening Tomosynthesis Bilateral (02/09/2023 11:07 AM EDT) Anatomical Region Laterality Modality Breast Bilateral Mammography 02/09/2023 11:0 7 AM EDT Narrative 03/05/2023 6:25 AM EDT [facility] [address] [place], [place] [address] Mammography Report Signed Patient: Argelia Messina MR#: [id number] : 1965 Acct:[id number] Age/Sex: 57 / F ADM Date: 02/09/23 Loc: HO.MAMMO Attending Dr: Princess Min IS/IT PROJECT MANAGER Ordering Physician: Princess Min Results: Date of Service: 02/09/23 Follow Up: Procedure(s): MM tomosynthesis screening BI Accession Number(s): [id number] cc: Princess Min IS/IT PROJECT MANAGER EXAMINATION: MM SCREENING DIGITAL BREAST TOMOSYNTHESIS, [...] in OV> 03/05/23 0623 DD/ 1107 TD/TT: Celery Stripper: Procedure Note Donotuseinterpreter, Image - 03/05/2023 [facility] [address] [place] [address] Dr. Aguilar, [place] [address] Mammography Report Signed Patient: Nini Messina#: [id number] : 1965Acct:[id number] Age/Sex: 57 / FADM Date: 02/09/23 Loc: HO.MAMMO Attending Dr: Princess Min IS/IT PROJECT MANAGER Ordering Physician: Princess Min FNPResults: Date of Service: 02/09/23Follow Up: Procedure(s): MM tomosynthesis screening BI Accession Number(s): [id number] cc: Princess Min IS/IT PROJECT MANAGER EXAMINATION: MM SCREENING DIGITAL BREAST TOMOSYNTHESIS, [...] in OV> 03/05/23 0623 DD/ 1107 TD/TT: Celery Stripper: Princess Min IS/IT PROJECT MANAGER IMG BI PROCEDURES Final Result * Hm Colonoscopy (05/24/2017) Colonoscopy Normal Normal us Historical Provider HEALTH MAINTENANCE Final Result from Last 3 Months or Most Recently Relevant to Health Maintenance Insurance [facility] C3 Member Subscriber Plan / Payer ( fective 2023-Present) Name:Argelia Messina Relation to Subscriber:Self Name:Argelia Messina Payer ID:Not on file Group ID:Not on file Type:Medicaid Address: [address] [place] [id number] DENTAL-[facility] MEDICAID STAND ADULT Care Teams Thermal Technician Relationship Specialty Start Date End Date Princess Min FNP [address] [place] [address] PCP - General Family Medicine 02/10/24 Cherelle Roy Pin AttacherCdl Program Coordinator 01/24/25
--- OUTSIDE RECORDS SUMMARY | 2025-04-18 17:38 | XMS_ITS | Encounter Summary ---
Author Organization [employer] Address [address] [facility] 7t [place] [address] Care Team Providers Care Quotation Checker Name Role Phone Princess Min Primary Care Provider [phone] Princess Min Primary Care Provider [phone] Princess Min Primary Care Provider [phone] Reason for Visit * Reason Comments Med Refill Encounter Details Date Type Department Care Team ([facility] Contact Info) Description 08/11/[address] [facility] MEDICINE [address] [place] [address] Princess Min FNP [address] [place], [place] [phone] Cervical spondylosis Social History Tobacco Use Types [...] Description 05/07/2025 10:15 AM EDT Office Visit [facility] CHC MED & PEDS 505 [place], [place] [phone] Princess Min FNP [address] [place] [address] documented as of this encounter Visit Diagnoses Diagnosis Cervical spondylosis Cervical spondylosis without myelopathy documented in this encounter Care Teams Quotation Checker Relationship Specialty Start Date End Date Princess Min FNP [address] [place] [address] PCP - General Family Medicine 03/20/22 12/26/23 Princess Min FNP [address] [place] [address] PCP - General Family Medicine 01/21/24 02/03/24 Princess Min FNP [address] [place] [address] PCP - General Family Medicine 02/10/24 Cherelle Roy Composition Siding WorkerGroover And Striper Operator 01/24/25 documented as of this encounter
--- OUTSIDE RECORDS SUMMARY | 2025-04-18 17:38 | XMS_ITS | Encounter Summary ---
Author Organization [employer] Address [address] [facility] 7t [place] [address] Care Team Providers Care Race Relations Adviser Name Role Phone Princess Min Primary Care Provider [phone] Reason for Visit * Reason Onset Date Comments Durable Medical Equipment 09/12/2024 Encounter Details Date Type Department Care Team (Late st Contact Info) Description 09/12/2024 Telephone [facility] MEDICINE [address] [place] [address] Princess Min FNP [address] [place], [place] [phone] Durable Medical Equipment Social History Tobacco Use [...] 05/07/2025 10:15 AM EDT Office Visit [facility] MED & PEDS 505 [place] [address] Princess Min FNP [address] [place] [address] documented as of this encounter Visit Diagnoses Not on filedocumented in this encounter Additional Health Concerns Assessment Noted Time PHQ-9 Depression Total Score: 3 03/03/20 24 11:33 AM EDT documented as of this encounter Care Teams Race Relations Adviser Relationship Specialty Start Date End Date Princess Min FNP [address] [place] [address] PCP - General Family Medicine 02/10/24 Cherelle Roy Seating CaptainSoftware Systems Architect 01/24/25 documented as of this encounter
--- OUTSIDE RECORDS SUMMARY | 2025-04-18 17:38 | XMS_ITS | Encounter Summary ---
Author Organization [employer] Address [address] [facility] 7t [place] [address] Care Team Providers Care Corporate Traffic Manager Name Role Phone Princess Min Primary Care Provider [phone] Princess Min Primary Care Provider [phone] Reason for Visit * Reason Onset Date Comments PT1 02/03/2024 Encounter Details Date Type Department Care Team (Late st Contact Info) Description 02/03/2024 Telephone [facility] MEDICINE [address] [place] [address] Princess Min FNP [address] [place], [place] [phone] PT1 Social History Tobacco Use Types Packs/Day [...] Y/N: Yes Provider name or facility name: [facility] Address: [address] [place] [address] Escort needed: Y/N: No Do you have a wheelchair: Y/N: No If yes- Manual or electric: No, but cane. Visits; N/A documented in this encounter Plan of Treatment Upcoming Encounters Date Type Department Care Team (Late st Contact Info) Description 05/07/2025 10:15 AM EDT Office Visit [facility] CHC MED & PEDS 505 [place] [address] Princess Min FNP 505 [place] [address] documented as of this encounter Visit Diagnoses Not on filedocumented in this encounter Additional Health Concerns Assessment Noted Time PHQ-9 Depression Total Score: 10 023 10:39 AM EDT documented as of this encounter Care Teams Corporate Traffic Manager Relationship Specialty Start Date End Date Princess Min FNP [address] [place] [address] PCP - General Family Medicine 01/21/24 02/03/24 Princess Min FNP [address] [place] [address] PCP - General Family Medicine 02/10/24 Cherelle Roy Etl ConsultantMineral Economist 01/24/25 documented as of this encounter
--- OUTSIDE RECORDS SUMMARY | 2025-04-18 17:38 | XMS_ITS | Encounter Summary ---
Author Organization [employer] Address [address] [facility] 7t [place] [address] Care Team Providers Care Team Lead Name Role Phone Princess Min REPORTING CONSULTANT Primary Care Provider [phone] Reason for Visit * Reason Comments Med Refill Encounter Details Date Type Department Care Team ([facility] st Contact Info) Description 07/17/2024 Refill [facility] CHC MED & PEDS 505 [place], [place] [phone] Princess Min FNP 505 [place], [place] [phone] Acute otitis externa of left ear, unspecified [...] Description 05/07/2025 10:15 AM EDT Office Visit [facility] MED & PEDS [address] [place] [address] Princess Min FNP [address] [place] [address] documented as of this encounter Visit Diagnoses Diagnosis Acute otitis externa of left ear, unspecified type Intermittent diarrhea documented in this encounter Additional Health Concerns Assessment Noted Time PHQ-9 Depression Total Score: 3 03/03/20 24 11:33 AM EDT documented as of this encounter Care Teams Team Lead Relationship Specialty Start Date End Date Princess Min FNP [address] [place] [address] PCP - General Family Medicine 02/10/24 Cherelle Roy Utility AgentKennel Technician 01/24/25 documented as of this encounter
--- OUTSIDE RECORDS SUMMARY | 2025-04-18 17:38 | XMS_ITS | Encounter Summary ---
Author Organization [employer] Address [address] [facility] 7t [place] [address] Care Team Providers Care Traffic Inspector Name Role Phone Princess Min Primary Care Provider [phone] Princess Min Primary Care Provider [phone] Princess Min Primary Care Provider [phone] Reason for Visit * Reason Onset Date Comments Durable Medical Equipment 10/27/2022 Encounter Details Date Type Department Care Team (Late st Contact Info) Description 10/27/2022 Telephone [facility] MEDICINE [address] [place] [address] Princess Min FNP [address] [place], [place] [phone] Durable Medical Equipment Social History Tobacco Use [...] shower head, script to be send to [facility] [place]. documented in this encounter Plan of Treatment Upcoming Encounters Date Type Department Care Team (Late st Contact Info) Description 05/07/2025 10:15 AM EDT Office Visit [facility] MED & PEDS 505 [place], [place] [phone] Princess Min FNP 505 [place] [address] documented as of this encounter Visit Diagnoses Not on filedocumented in this encounter Care Teams Traffic Inspector Relationship Specialty Start Date End Date Princess Min FNP [address] [place] [address] PCP - General Family Medicine 03/20/22 12/26/23 Princess Min FNP [address] [place] [address] PCP - General Family Medicine 01/21/24 02/03/24 Princess Min FNP [address] [place] [address] PCP - General Family Medicine 02/10/24 Cherelle Roy Check InspectorGrappler 01/24/25 documented as of this encounter
--- OUTSIDE RECORDS SUMMARY | 2025-04-18 17:38 | XMS_ITS | Encounter Summary ---
Author Organization [employer] Address 75 [facility] 7t [place] [address] Care Team Providers Care Cover Inspector Name Role Phone Princess Min Primary Care Provider [phone] Princess Min Primary Care Provider [phone] Reason for Visit * Reason Comments Med Change Request Encounter Details Date Type Department Care Team ([facility] st Contact Info) Description 12/30/2023 Refill [facility] CHC MED & PEDS [address] [place], [place] [phone] Princess Min FNP 505 [place] [address] Social History Tobacco Use Types Packs/Day Years [...] 10:15 AM EDT Office Visit [facility] MED & PEDS [address] [place] [address] Princess Min FNP 505 [place] [address] documented as of this encounter Visit Diagnoses Not on filedocumented in this encounter Additional Health Concerns Assessment Noted Time PHQ-9 Depression Total Score: 10 023 10:39 AM EDT documented as of this encounter Care Teams Cover Inspector Relationship Specialty Start Date End Date Princess Min FNP [address] [place] [address] PCP - General Family Medicine 01/21/24 02/03/24 Princess Min FNP [address] [place] [address] PCP - General Family Medicine 02/10/24 Cherelle Roy Worldwide Chief Creative OfficerCloth Wire Weaver 01/24/25 documented as of this encounter
--- OUTSIDE RECORDS SUMMARY | 2025-04-18 17:38 | XMS_ITS | Encounter Summary ---
Author Organization [employer] Address [address] [facility] 7t [place] [address] Care Team Providers Care Edge Runner Name Role Phone Princess Min Primary Care Provider [phone] Princess Min Primary Care Provider [phone] Reason for Visit * Reason Comments Med Refill Encounter Details Date Type Department Care Team ([facility] st Contact Info) Description 01/02/2024 Refill [facility] MEDICINE [address] [place] [address] Princess Min FNP 505 [place], [place] [phone] Social History Tobacco Use Types Packs/Day Years [...] 05/07/2025 10:15 AM EDT Office Visit [facility] MED & PEDS 505 [place], [place] [phone] Princess Min FNP [address] [place] [address] documented as of this encounter Visit Diagnoses Not on filedocumented in this encounter Additional Health Concerns Assessment Noted Time PHQ-9 Depression Total Score: 10 023 10:39 AM EDT documented as of this encounter Care Teams Edge Runner Relationship Specialty Start Date End Date Princess Min FNP [address] [place] [address] PCP - General Family Medicine 01/21/24 02/03/24 Princess Min FNP [address] [place] [address] PCP - General Family Medicine 02/10/24 Cherelle Roy Graduate FellowFeed Mill Lab Technician 01/24/25 documented as of this encounter
--- OUTSIDE RECORDS SUMMARY | 2025-04-18 17:38 | XMS_ITS | Encounter Summary ---
Author Organization [employer] Address [address] [facility] 7t [place] [address] Care Team Providers Care Parts Identifier Name Role Phone Princess Min Primary Care Provider Reason for Visit * Reason Onset Date Comments FYI 07/13/2024 Encounter Details Date Type Department Care Team ([facility] st Contact Info) Description 07/13/2024 Telephone [facility] MEDICINE [address] [place] [address] Princess Min FNP [address] [place], [place] [phone] FYI Social History Tobacco Use Types Packs/Day [...] Upcoming Encounters Date Type Department Care Team ([facility] st Contact Info) Description 05/07/2025 10:15 AM EDT Office Visit [facility] MED & PEDS 505 [place] [address] Princess Min FNP 505 [place] [address] documented as of this encounter Visit Diagnoses Not on filedocumented in this encounter Additional Health Concerns Assessment Noted Time PHQ-9 Depression Total Score: 3 03/03/20 24 11:33 AM EDT documented as of this encounter Care Teams Parts Identifier Relationship Specialty Start Date End Date Princess Min FNP [address] [place] [address] PCP - General Family Medicine 02/10/24 Cherelle Roy Fruit GraderCertified Orthotic Fitter 01/24/25 documented as of this encounter
--- OUTSIDE RECORDS SUMMARY | 2025-04-18 17:38 | XMS_ITS | Encounter Summary ---
Author Organization [employer] Address [address] [facility] 7t [place] [address] Care Team Providers Care Sounding Device Operator Name Role Phone Princess Min Primary Care Provider [phone] Encounter Details Date Type Department Care Team (Late st Contact Info) Description 04/13/2025 Refill [facility] MEDICINE 230 [place] [address] Princess Min FNP [address] [place], [place] [phone] Social History Tobacco Use Types Packs/Day Years [...] Description 05/07/2025 10:15 AM EDT Office Visit [facility] MED & PEDS 505 [place] [address] Princess Min FNP 505 [place] [address] documented as of this encounter Visit Diagnoses Not on filedocumented in this encounter Additional Health Concerns Assessment Noted Time PHQ-9 Depression Total Score: 9 03/28/20 25 11:35 AM EDT documented as of this encounter Care Teams Sounding Device Operator Relationship Specialty Start Date End Date Princess Min FNP [address] [place] [address] PCP - General Family Medicine 02/10/24 Cherelle Roy Healthcare EducatorClinical Education Specialist 01/24/25 documented as of this encounter
--- OUTSIDE RECORDS SUMMARY | 2025-04-18 17:38 | XMS_ITS | Encounter Summary ---
Author Organization [employer] Address 75 [facility] 7t [place] [address] Care Team Providers Care Commercial Drone Pilot Name Role Phone Princess Min CRACKER SPRAYER Primary Care Provider [phone] Reason for Visit * Reason Comments Med Refill Encounter Details Date Type Department Care Team ([facility] st Contact Info) Description 11/09/2024 Refill [facility] CHC MED & PEDS [address] [place], [place] [phone] Princess Min FNP 505 [place], [place] [phone] History of total knee arthroplasty, left Social [...] 05/07/2025 10:15 AM EDT Office Visit [facility] MED & PEDS [address] [place] [address] Princess Min FNP 505 [place] [address] documented as of this encounter Visit Diagnoses Diagnosis History of total knee arthroplasty, left documented in this encounter Additional Health Concerns Assessment Noted Time PHQ-9 Depression Total Score: 3 03/03/20 24 11:33 AM EDT documented as of this encounter Care Teams Commercial Drone Pilot Relationship Specialty Start Date End Date Princess Min FNP [address] [place] [address] PCP - General Family Medicine 02/10/24 Cherelle Roy Computer AnalystOptical Advisor 01/24/25 documented as of this encounter
--- OUTSIDE RECORDS SUMMARY | 2025-04-18 17:38 | XMS_ITS | Encounter Summary ---
Author Organization [employer] Address 75 [facility] 7t [place] [address] Care Team Providers Care Embedded Developer Name Role Phone Princess Min Primary Care Provider [phone] Princess Min Primary Care Provider [phone] Princess Min Primary Care Provider Reason for Visit * Reason Comments Med Refill Encounter Details Date Type Department Care Team ([facility] st Contact Info) Description 06/14/2023 Refill [facility] MEDICINE [address] [place] [address] Princess Min FNP [address] [place], [place] [phone] Social History Tobacco Use Types Packs/Day Years [...] 05/07/2025 10:15 AM EDT Office Visit [facility] MED & PEDS 505 [place], [place] [phone] Princess Min FNP 505 [place] [address] documented as of this encounter Visit Diagnoses Not on filedocumented in this encounter Additional Health Concerns Assessment Noted Time PHQ-9 Depression Total Score: 10 023 10:39 AM EDT documented as of this encounter Care Teams Embedded Developer Relationship Specialty Start Date End Date Princess Min FNP [address] [place] [address] PCP - General Family Medicine 03/20/22 12/26/23 Princess Min FNP [address] [place] [address] PCP - General Family Medicine 01/21/24 02/03/24 Princess Min FNP [address] [place] [address] PCP - General Family Medicine 02/10/24 Cherelle Roy Post SplitterCleaner And Dyer 01/24/25 documented as of this encounter
--- OUTSIDE RECORDS SUMMARY | 2025-04-18 17:38 | XMS_ITS | Patient Health Record ---
Author Organization [facility] Address [address] [place] [address] Care Team Providers Care Help Desk Support Specialist Name Role Phone OMERO SOTO MD Primary Care Provider Aidan Fried Jr Unavailable Reason For Referral Referring Provider First Name OMERO Referring Provider Last Name CHARLES Referred Organization [facility] Referred Provider Aidan Silva Jr Referred Address [address] [facility] [address],[place], [place],[address], Referred Provider Specialty Gastroentero logy Referral Priority Routine Encounters Encounter Location Date Provider Diagnosis [facility] [address] [facility] [address] [place] [address] 06/21/2024 Aidan Silva Jr Plan Of Treatment No Information Insurance Providers Payer Name Payer Address Payer Phone Subscriber Number Group Number Insured Name Patient Relationship to Insured Coverage Start Date Coverage End Date MEDICAID [facility] [address] [place] [id number] [phone] [id number] NIELS CABALLERO Self - patient is the insured
--- OUTSIDE RECORDS SUMMARY | 2025-04-18 17:38 | XMS_ITS | Encounter Summary ---
Author Organization [employer] Address [address] [facility] 7t [place] [address] Care Team Providers Care Ore Smelter Name Role Phone Princess Min Primary Care Provider [phone] Princess Min Primary Care Provider Princess Min Primary Care Provider [phone] Reason for Visit * Reason Onset Date Comments Triage 10/19/2022 Encounter Details Date Type Department Care Team ([facility] st Contact Info) Description 10/19/2022 Telephone [facility] MEDICINE [address] [place] [address] Princess Min FNP [address] [place], [place] [phone] Triage Social History Tobacco Use Types Packs/Day [...] Miscellaneous Notes * Telephone Encounter - Barbie Tarik - 10/19/2022 1:38 PM EDT Thank yoi * Telephone Encounter - Barbie Montanez - 10/19/2022 12:41 PM EDT Please review message below. If you agree please add an addendum to patient note of 10/16 stating you're prescribing a new nebulizer. Thank you * Telephone Encounter - Lisbet Nix LPN - 10/19/2022 11:41 AM EDT Triage call returned to patient via [employer] draw bench operator [phone]. Patient reports only mild wheezing using albuterol [...] accepted this outcome Please contact pt at [phone] Tajik speaker documented in this encounter Plan of Treatment Upcoming Encounters Date Type Department Care Team ([facility] st Contact Info) Description 05/07/2025 10:15 AM EDT Office Visit [facility] MED & PEDS [address] [place] [address] Princess Min FNP [address] [place] [address] documented as of this encounter Visit Diagnoses Not on filedocumented in this encounter Care Teams Ore Smelter Relationship Specialty Start Date End Date Princess Min FNP [address] [place] [address] PCP - General Family Medicine 03/20/22 12/26/23 Princess Min FNP [address] [place] [address] PCP - General Family Medicine 01/21/24 02/03/24 Princess Min FNP [address] [place] [address] PCP - General Family Medicine 02/10/24 Cherelle Roy Newspaper EditorVp Software 01/24/25 documented as of this encounter
== END 2025-04-18 16:09 | disposition home or self-care (01) ==
LOC: HO.HPSW 15:11
PROVIDERS: PCP Registered Nurse; Visit Provider Nurse Practitioner Family
DX: J45.909 Unspecified asthma, uncomplicated (principal); F17.210 Nicotine dependence, cigarettes, uncomplicated; R91.1 Solitary pulmonary nodule; Z01.811 Encounter for preprocedural respiratory examination
CPT/HCPCS: 99214

== ENCOUNTER → 2025-04-18 15:10 | Outpatient (BNVA) | payer MEDICAID, SELFPAY | PROVIDERS: PCP Registered Nurse; Visit Provider Nurse Practitioner Family | DX: Z01.811 Encounter for preprocedural respiratory examination (principal); J45.909 Unspecified asthma, uncomplicated; R91.1 Solitary pulmonary nodule; F17.210 Nicotine dependence, cigarettes, uncomplicated | CPT/HCPCS: 99212 ==

== ENCOUNTER 2025-05-07 11:36 | Outpatient (REF) | payer MEDICAID, SELFPAY ==
--- OUTSIDE RECORDS SUMMARY | 2024-06-26 07:00 | XMS_ITS ---
Author Organization [facility] Address [address] [place] [address] Care Team Providers Care Landscape Nurseryman Name Role Phone CHARLES LARIOS, OMERO Primary Care Provider Aidan Fried Jr [phone] REASON FOR VISIT screening colonoscopy Encounters Encounter Location Date Provider Diagnosis [facility] [address] [place] [address] [place] [address] 06/26/2024 Aidan Silva Jr Plan Of Treatment No Information Progress Notes * OREN CABALLEROLDOB:1965 (59 yo F)Acc No.[id number]:06/26/2024 Progress Notes Patient: NIELS ZELAYA Provider: Carmen Silva MD :1965 A ge:58 Y S ex:Female Date:06/26/2024 Address:[address], [id number] Pcp:OMERO SOTO MD Subjective: * Chief Complaints: * 1 . Screening colonoscopy. * Medical History: Objective: * Vitals: Assessment: Plan: * Treatment: * * The named appointment provid er may or may not be the originator of this progress note, and it is not deemed complete until electronically signed by the appointment provider. Sign off status: Pending * Provider: Carmen Silva MD Date: 08/27/2023 Generated for Santosh zhao/Miles/Juan Daniel on: 06:44 AM EDT
--- OUTSIDE RECORDS SUMMARY | 2025-05-07 10:15 | XMS_ITS | Encounter Summary ---
Author Organization [employer] Address [address] [facility] 7t [place] [address] Care Team Providers Care Dance Costume Designer Name Role Phone Princess Min AERIAL ERECTOR Primary Care Provider [phone] Reason for Visit * Reason Comments Follow-up T2DM Encounter Details Date Type Department Care Team ([facility] st Contact Info) Description 05/07/2025 10:15 AM EDT Office Visit [facility] MED & PEDS [address] [place], [place] [phone] Princess Min FNP [address] [place], [place] [phone] Type 2 diabetes mellitus without complication, with long-term current use of insulin (HCC) (Primary Dx); Moderate persistent asthma without complication; Routine health maintenance Social History Tobacco Use Types Packs/Day Years [...] Sign Reading Time Taken Comments Blood Pressure 136/70 05/07/2025 10:55 AM EDT Pulse 62 05/07/2025 10:55 AM EDT Temperature 36.7 C (98.1 F) 05/07/2025 10:55 AM EDT Respiratory Rate 12 05/07/2025 10:55 AM EDT Oxygen Saturation 98% 05/07/2025 10:55 AM EDT Inhaled Oxygen Concentration - - Weight 105 kg (232 lb) 05/07/2025 10:55 AM EDT Height 154.9 cm (5' 1 ) 05/07/2025 10:55 AM EDT Body Mass Index 43.84 05/07/2025 10:55 AM EDT documented in this encounter Plan of Treatment Upcoming Encounters Date Type Department Care Team (Late st Contact Info) Description 05/21/2025 11:30 AM EDT Office Visit [facility] OPTOMETRY [address] [place] [address] [id number] Gertrudis Bateman, OD [address] [place] [address] Scheduled Orders Name Type Priority Associated Diagnoses Orde r Schedule Hemoglobin A1c Lab Routine Type 2 diabetes mellitus without complication, with long-term current use of insulin (HCC) Expected: 05/07/2025 (Approximate), Expires: 05/07/2026 documented as of this encounter Procedures Procedure Name Priority Date/Time Associated Diagnosis Comments POCT GLUCOSE Routine 05/07/2025 10:56 AM EDT Type 2 diabetes mellitus without complication, with long-term current use of insulin (HCC) documented in this encounter Results * POCT glucose manually resulted (05/07/2025 10:56 AM EDT) Glucose Blood, POC 185 60 - 200 mg/dL QC Media Lot # Comment:[id number] Lot# Expiration Date Comment:09/02/2025 Blood Capillary blood specimen / Unknown 05/07/2025 10:56 AM EDT Princess VALENZUELA POINT OF CARE TEST ENTER/EDIT ORDERABLES Final Result documented in this encounter Visit Diagnoses Diagnosis Type 2 diabetes mellitus without complication, with long-term current use of insulin (HCC)- Primary Moderate persistent asthma without complication Routine health maintenance Unspecified examination documented in this encounter Additional Health Concerns Assessment Noted Time PHQ-9 Depression Total Score: 9 03/28/20 25 11:35 AM EDT documented as of this encounter Care Teams Dance Costume Designer Relationship Specialty Start Date End Date Princess Min FNP [address] [place] [address] PCP - General Family Medicine 02/10/24 Cherelle Roy Buffing Wheel PresserAddiction Therapist 01/24/25 Christine Villaseñor Buffing Wheel PresserAddiction Therapist 04/30/25 documented as of this encounter
--- OUTSIDE RECORDS SUMMARY | 2025-05-07 11:40 | XMS_ITS | Encounter Summary ---
Author Organization [employer] Address [address] [facility] 7t [place] [address] Care Team Providers Care Tool Clerk Name Role Phone Princess Min Primary Care Provider [phone] Princess Min Primary Care Provider [phone] Princess Min Primary Care Provider [phone] Reason for Visit * Reason Onset Date Comments Referral 11/20/2022 Encounter Details Date Type Department Care Team ([facility] st Contact Info) Description 11/20/2022 Telephone [facility] MEDICINE [address] [place] [address] Princess Min FNP [address] [place], [place] [phone] Referral Social History Tobacco Use Types Packs/Day [...] would like to see Dr Deras at [facility] because of her strong family hx [...] Specialty: Seth Deras [facility] Location:[address] [place] [address] Dr Dorsey [address] [place] [address] Date&Time: n/a Hand Spring Repairer Helper: n/a Please call pt to clarify. documented in this encounter Plan of Treatment Upcoming Encounters Date Type Department Care Team (Late st Contact Info) Description 05/21/2025 11:30 AM EDT Office Visit [facility] OPTOMETRY [address] [place] [address] Fransico, Gertrudis, OD [address] [place] [address] documented as of this encounter Visit Diagnoses Not on filedocumented in this encounter Additional Health Concerns Assessment Noted Time PHQ-9 Depression Total Score: 24 023 9:25 AM EDT documented as of this encounter Care Teams Tool Clerk Relationship Specialty Start Date End Date Princess Min FNP [address] [place] [address] PCP - General Family Medicine 03/20/22 12/26/23 Princess Min FNP [address] [place] [address] PCP - General Family Medicine 01/21/24 02/03/24 Princess Min FNP [address] [place] [address] PCP - General Family Medicine 02/10/24 Cherelle Roy Sales/MarketingSeam Presser 01/24/25 Christine Villaseñor Sales/MarketingSeam Presser 04/30/25 documented as of this encounter
--- OUTSIDE RECORDS SUMMARY | 2025-05-07 11:40 | XMS_ITS | Encounter Summary ---
Author Organization [employer] Address 75 [facility] 7t [place] [address] Care Team Providers Care Guidance Services Coordinator Name Role Phone Princess Min Primary Care Provider [phone] Princess Min Primary Care Provider [phone] Princess Min Primary Care Provider [phone] Reason for Visit * Reason Onset Date Comments PT1 11/20/2022 Encounter Details Date Type Department Care Team (Late st Contact Info) Description 11/20/2022 Telephone [facility] MEDICINE [address] [place] [address] Princess Min FNP [address] [place], [place] [phone] PT1 Social History Tobacco Use Types Packs/Day [...] / denial letter via mail. PT-1 Request [id number] Authorized - [facility] [address] [address] * Telephone Encounter - Mayur Thomas - 11/20/2022 9:19 AM EDT Tc from pt requesting to Renew PT1 for Name of facility: n/a Specialty: All Future appts Location: [address] [place] [address] Date: n/a Time: n/a fax: n/a Phone: n/a wheelchair: n/a Well Point Pumping Supervisor: Yes (Adult) For all future appts documented in this encounter Plan of Treatment Upcoming Encounters Date Type Department Care Team (Late st Contact Info) Description 05/21/2025 11:30 AM EDT Office Visit [facility] OPTOMETRY [address] [place] [address] Fransico, Gertrudis, OD 230 [place] [address] documented as of this encounter Visit Diagnoses Not on filedocumented in this encounter Additional Health Concerns Assessment Noted Time PHQ-9 Depression Total Score: 24 023 9:25 AM EDT documented as of this encounter Care Teams Guidance Services Coordinator Relationship Specialty Start Date End Date Princess Min FNP [address] [place] [address] PCP - General Family Medicine 03/20/22 12/26/23 Princess Min FNP [address] [place] [address] PCP - General Family Medicine 01/21/24 02/03/24 Princess Min FNP [address] [place] [address] PCP - General Family Medicine 02/10/24 Cherelle Roy Brilliandeer LopperTheatrical Trouper 01/24/25 Christine Villaseñor Brilliandeer LopperTheatrical Trouper 04/30/25 documented as of this encounter
--- OUTSIDE RECORDS SUMMARY | 2025-05-07 11:40 | XMS_ITS | Encounter Summary ---
Author Organization [employer] Address [address] [facility] 7t [place] [address] Care Team Providers Care Innovation Analyst Name Role Phone Princess Min FISHING LURE ASSEMBLER Primary Care Provider [phone] Encounter Details Date Type Department Care Team (Latest Contact Info) Description 05/07/2025 Travel Social History Tobacco Use Types Packs/Day [...] Description 05/21/2025 11:30 AM EDT Office Visit [facility] OPTOMETRY [address] [place] [address] Fransico, Gertrudis, OD [address] [place] [address] documented as of this encounter Visit Diagnoses Not on filedocumented in this encounter Additional Health Concerns Assessment Noted Time PHQ-9 Depression Total Score: 9 03/28/20 25 11:35 AM EDT documented as of this encounter Care Teams Innovation Analyst Relationship Specialty Start Date End Date Princess Min FNP [address] [place] [address] PCP - General Family Medicine 02/10/24 Cherelle Roy Flasher AdjusterOverlock Sleeve Setter 01/24/25 Christine Villaseñor Flasher AdjusterOverlock Sleeve Setter 04/30/25 documented as of this encounter
--- OUTSIDE RECORDS SUMMARY | 2025-05-07 11:40 | XMS_ITS | Encounter Summary ---
Author Organization [employer] Address [address] [facility] 7t [place] [address] Care Team Providers Care Life Skills Educator Name Role Phone Princess Min Primary Care Provider Princess Min Primary Care Provider [phone] Princess Min Primary Care Provider [phone] Reason for Visit * Reason Onset Date Comments Appointment Request 11/20/2022 Encounter Details Date Type Department Care Team ([facility] st Contact Info) Description 11/20/[address] [facility] MEDICINE [address] [place] [address] Princess Min FNP [address] [place], [place] [phone] Appointment Request Social History Tobacco Use Types [...] to switching program. Please contact pt at [phone] Ukrainian Speaker documented in this encounter Plan of Treatment Upcoming Encounters Date Type Department Care Team (Late st Contact Info) Description 05/21/2025 11:30 AM EDT Office Visit [facility] OPTOMETRY [address] [place] [address] Fransico, Gertrudis, OD [address] [place] [address] documented as of this encounter Visit Diagnoses Not on filedocumented in this encounter Additional Health Concerns Assessment Noted Time PHQ-9 Depression Total Score: 24 023 9:25 AM EDT documented as of this encounter Care Teams Life Skills Educator Relationship Specialty Start Date End Date Princess Min FNP [address] [place] [address] PCP - General Family Medicine 03/20/22 12/26/23 Princess Min FNP [address] [place] [address] PCP - General Family Medicine 01/21/24 02/03/24 Princess Min FNP [address] [place] [address] PCP - General Family Medicine 02/10/24 Cherelle Roy Tree DeadenerBelly Packer 01/24/25 Christine Villaseñor Tree DeadenerBelly Packer 04/30/25 documented as of this encounter
--- OUTSIDE RECORDS SUMMARY | 2025-05-07 11:40 | XMS_ITS | Encounter Summary ---
Author Organization [employer] Address [address] [facility] 7t [place] [address] Care Team Providers Care Fashion Marketer Name Role Phone Princess Min RECEIVABLE EXECUTIVE Primary Care Provider [phone] Reason for Visit * Reason Onset Date Comments Chart Prep 05/04/2025 Encounter Details Date Type Department Care Team ([facility] st Contact Info) Description 05/04/2025 Telephone [facility] [address] [place], [place] [phone] Princess Min FNP [address] [place], [place] [phone] Chart Prep Social History Tobacco Use Types [...] the past 12 months, has t he Infrasc[employer], gas, oil or water company threatened to [...] encounter Miscellaneous Notes * Telephone Encounter - Ana Luisa Osorio [place] - 05/04/2025 3:29 PM EDT Chart Prep Labs: not done Images: done Referrals: appointment pending Vaccines due: Covid and Flu Screenings: mammogram, eye exam, and foot exam Overdue care gaps: Glucose, Oral health screening, and Disability screen documented in this encounter Plan of Treatment Upcoming Encounters Date Type Department Care Team (Late st Contact Info) Description 05/21/2025 11:30 AM EDT Office Visit [facility] OPTOMETRY [address] [place] [address] Gertrudis Bateman, OD [address] [place] [address] documented as of this encounter Visit Diagnoses Not on filedocumented in this encounter Additional Health Concerns Assessment Noted Time PHQ-9 Depression Total Score: 9 03/28/20 25 11:35 AM EDT documented as of this encounter Care Teams Fashion Marketer Relationship Specialty Start Date End Date Princess Min FNP [address] [place] [address] PCP - General Family Medicine 02/10/24 Cherelle Roy Bus And Trolley Inspecting DispatcherGenerating Station Mechanic 01/24/25 Christine Villaseñor Bus And Trolley Inspecting DispatcherGenerating Station Mechanic 04/30/25 documented as of this encounter
--- OUTSIDE RECORDS SUMMARY | 2025-05-07 11:40 | XMS_ITS | Encounter Summary ---
Author Organization [employer] Address 75 [facility] 7t [place] [address] Care Team Providers Care Wind Operations Supervisor Name Role Phone Princess Min Primary Care Provider [phone] Princess Min Primary Care Provider [phone] Princess Min Primary Care Provider [phone] Reason for Referral * Imaging (Routine) - Closed Specialty Diagnoses / Procedures Referred By Contnargis t Referred To Contact Diagnoses Encounter for screening mammogram for malignant neoplasm of breast Procedures BI Mammogram Screening Bilateral Princess Min FNP [address] [place] [address] Phone: tel: fax: [facility] [address] [place] [address] Phone: tel: fax: Referral ID Status Reason Start Date Expiration Date Visits Re quested Visits Authorized [id number] Closed 11/23/2022 05/22/2023 1 1 Reason for Visit * Reason Onset Date Comments Referral 11/20/2022 Encounter Details Date Type Department Care Team ([facility] st Contact Info) Description 11/20/2022 Telephone [facility] MEDICINE [address] [place] [address] Princess Min FNP [address] [place] [address] Referral Social History Tobacco Use Types Packs/Day [...] EDT Please fax order for mamm[facility] to [facility] and call to let Ms. Garcia know when completed. Thank you. * Telephone Encounter - Alissa Winkler - 11/20/2022 10:16 AM EDT Tc from pt requesting a mammogram referral . Location [facility]. documented in this encounter Plan of Treatment Upcoming Encounters Date Type Department Care Team ([facility] st Contact Info) Description 05/21/2025 11:30 AM EDT Office Visit [facility] OPTOMETRY [address] [place] [address] Fransico, Gertrudis, OD [address] [place] [address] Scheduled Orders Name Type Priority Associated Diagnoses [...] documented as of this encounter Care Teams Wind Operations Supervisor Relationship Specialty Start Date End Date Princess Min FNP [address] [place] [address] PCP - General Family Medicine 03/20/22 12/26/23 Princess Min FNP [address] [place] [address] PCP - General Family Medicine 01/21/24 02/03/24 Princess Min FNP [address] [place] [address] PCP - General Family Medicine 02/10/24 Cherelle Roy Copy Center SpecialistMetal Cut Off Saw Operator 01/24/25 Christine Villaseñor Copy Center SpecialistMetal Cut Off Saw Operator 04/30/25 documented as of this encounter
--- OUTSIDE RECORDS SUMMARY | 2025-05-07 11:40 | XMS_ITS | Encounter Summary ---
Author Organization [employer] Address 75 [facility] 7t [place] [address] Care Team Providers Care Student Success Coach Name Role Phone Princess Min Primary Care Provider [phone] Reason for Visit * Reason Comments Med Refill Encounter Details Date Type Department Care Team ([facility] st Contact Info) Description 04/25/2024 Refill [facility] MEDICINE [address] [place] [address] Princess Min FNP [address] [place], [place] [phone] Social History Tobacco Use Types Packs/Day Years [...] Description 05/21/2025 11:30 AM EDT Office Visit [facility] OPTOMETRY [address] [place] [address] FransicoGertrudis gallegos, OD [address] [place] [address] documented as of this encounter Visit Diagnoses Not on filedocumented in this encounter Additional Health Concerns Assessment Noted Time PHQ-9 Depression Total Score: 3 03/03/20 24 11:33 AM EDT documented as of this encounter Care Teams Student Success Coach Relationship Specialty Start Date End Date Princess Min FNP [address] [place] [address] PCP - General Family Medicine 02/10/24 Cherelle Roy Yam CurerElectrical Fitter 01/24/25 Christine Villaseñor Yam CurerElectrical Fitter 04/30/25 documented as of this encounter
--- OUTSIDE RECORDS SUMMARY | 2025-05-07 11:40 | XMS_ITS | Encounter Summary ---
Author Organization [employer] Address 75 [facility] 7t [place] [address] Care Team Providers Care Welt Stitch Cleaner Name Role Phone Princess Min Primary Care Provider [phone] Princess Min Primary Care Provider [phone] Princess Min Primary Care Provider [phone] Reason for Visit * Reason Onset Date Comments Triage 10/19/2022 Encounter Details Date Type Department Care Team ([facility] st Contact Info) Description 10/19/2022 Telephone [facility] MEDICINE [address] [place] [address] Princess Min FNP [address] [place], [place] [phone] Triage Social History Tobacco Use Types Packs/Day [...] EDT Triage call returned to patient via [employer] language interpreter [id number]. Patient reports only mild wheezing using albuterol [...] accepted this outcome Please contact pt at [phone] Setswana speaker documented in this encounter Plan of Treatment Upcoming Encounters Date Type Department Care Team (Late st Contact Info) Description 05/21/2025 11:30 AM EDT Office Visit [facility] OPTOMETRY [address] [place] [address] Gertrudis Bateman, OD [address] [place] [address] documented as of this encounter Visit Diagnoses Not on filedocumented in this encounter Care Teams Welt Stitch Cleaner Relationship Specialty Start Date End Date Princess Min FNP [address] [place] [address] PCP - General Family Medicine 03/20/22 12/26/23 Princess Min FNP [address] [place] [address] PCP - General Family Medicine 01/21/24 02/03/24 Princess Min FNP [address] [place] [address] PCP - General Family Medicine 02/10/24 Cherelle Roy Photoengraving FinisherTooth Grinder 01/24/25 Christine Villaseñor Photoengraving FinisherTooth Grinder 04/30/25 documented as of this encounter
--- OUTSIDE RECORDS SUMMARY | 2025-05-07 11:40 | XMS_ITS | Encounter Summary ---
Author Organization [employer] Address [address] [facility] 7t [place] [address] Care Team Providers Care Dye Worker Name Role Phone Princess Min Primary Care Provider [phone] Princess Min Primary Care Provider [phone] Princess Min Primary Care Provider [phone] Reason for Visit * Reason Onset Date Comments Durable Medical Equipment 11/19/2022 Encounter Details Date Type Department Care Team (Late st Contact Info) Description 11/19/2022 Telephone [facility] MEDICINE [address] [place] [address] Princess Min FNP [address] [place], [place] [phone] Durable Medical Equipment Social History Tobacco Use [...] before I couldprovide a referral number to [facility] to process DME. Patient understood and agreed with plan. * Telephone Encounter - Miracle Dickens - 12/08/2022 4:32 PM EDT Tc from pt regarding message below. Pt states [facility] is requesting a PA If any questions please contact pt at [phone] * Telephone Encounter - Barbie Montanez - 12/08/2022 12:34 PM EDT Scripts received from provider and faxed to [facility] as requested. Patient notified. * Telephone Encounter - Dean Alvarado - 12/08/2022 12:06 PM EDT Tc from pt requesting status update on script for commode and shower chair, states would like script to sent to [facility]. Please contact at [phone] * Telephone Encounter - Barbie Montanez - 11/19/2022 3:16 PM EDT Scripts for shower chair and commode generated for signature * Telephone Encounter - Jareth Cifuentes - 11/19/2022 2:55 PM EDT Tc from pt requesting a script for a commode also a script for a shower chair. To be faxed to [facility] Please contact pt at [phone] documented in this encounter Plan of Treatment Upcoming Encounters Date Type Department Care Team (Late st Contact Info) Description 05/21/2025 11:30 AM EDT Office Visit [facility] OPTOMETRY [address] [place] [address] Gertrudis Bateman, OD [address] [place] [address] documented as of this encounter Visit Diagnoses Not on filedocumented in this encounter Additional Health Concerns Assessment Noted Time PHQ-9 Depression Total Score: 023 9:25 AM EDT documented as of this encounter Care Teams Dye Worker Relationship Specialty Start Date End Date Princess Min FNP [address] [place] [address] PCP - General Family Medicine 03/20/22 12/26/23 Princess Min FNP [address] [place] [address] PCP - General Family Medicine 01/21/24 02/03/24 Princess Min FNP [address] [place] [address] PCP - General Family Medicine 02/10/24 Cherelle Roy Contract AttorneyPaper Rewinder Operator 01/24/25 Christine Villaseñor Contract AttorneyPaper Rewinder Operator 04/30/25 documented as of this encounter
--- OUTSIDE RECORDS SUMMARY | 2025-05-07 11:40 | XMS_ITS | Encounter Summary ---
Author Organization [employer] Address [address] [facility] 7t [place] [address] Care Team Providers Care Restaurant Floor Manager Name Role Phone Princess Min Primary Care Provider [phone] Princess Min Primary Care Provider [phone] Princess Min Primary Care Provider Reason for Visit * Reason Onset Date Comments Durable Medical Equipment 10/27/2022 Encounter Details Date Type Department Care Team (Late st Contact Info) Description 10/27/2022 Telephone [facility] MEDICINE [address] [place] [address] Princess Min FNP [address] [place], [place] [phone] Durable Medical Equipment Social History Tobacco Use [...] Description 05/21/2025 11:30 AM EDT Office Visit [facility] OPTOMETRY [address] [place] [address] Gertrudis Bateman, OD [address] [place] [address] documented as of this encounter Visit Diagnoses Not on filedocumented in this encounter Care Teams Restaurant Floor Manager Relationship Specialty Start Date End Date Princess Min FNP [address] [place] [address] PCP - General Family Medicine 03/20/22 12/26/23 Princess Min FNP [address] [place] [address] PCP - General Family Medicine 01/21/24 02/03/24 Princess Min FNP [address] [place] [address] PCP - General Family Medicine 02/10/24 Cherelle Roy Criminal Intelligence AnalystE Learning Designer 01/24/25 Christine Villaseñor Criminal Intelligence AnalystE Learning Designer 04/30/25 documented as of this encounter
--- OUTSIDE RECORDS SUMMARY | 2025-05-07 11:40 | XMS_ITS | Encounter Summary ---
Author Organization [email or web address] Address [address] [facility] 7[address] [place] [address] Care Team Providers Care Kitchen Help Handyman Name Role Phone Princess Min Primary Care Provider [phone] Princess Min Primary Care Provider [phone] Princess Min Primary Care Provider [phone] Reason for Visit * Reason Onset Date Comments PT1 request 10/19/2022 Encounter Details Date Type Department Care Team ([facility] st Contact Info) Description 10/19/[address] [facility] [address] [place] [address] Princess Min FNP [address] [place], [place] [phone] PT1 request Social History Tobacco Use Types [...] / denial letter via mail. PT-1 Request [id number] Authorized - [facility] PT-1 Request [id number] Pending [facility] [address] [place] [address] * Telephone Encounter - Alissa Winkler - 10/19/2022 11:55 AM EDT Tc from pt requesting PT1 Location:[facility] Specialty: Provider Date&Time:N/a Technology Education Instructor: yes Uses cane Location: [facility] Specialty: Orthopedics Date&Time: N/a Technology Education Instructor: Yes Location:2 [facility] Specialty: [facility] Date&Time:N/a Technology Education Instructor: yes documented in this encounter Plan of Treatment Upcoming Encounters Date Type Department Care Team (Late st Contact Info) Description 05/21/2025 11:30 AM EDT Office Visit [facility] [address] [place] [address] FransicoGertrudis gallegos, OD [address] [place] [address] documented as of this encounter Visit Diagnoses Not on filedocumented in this encounter Care Teams Kitchen Help Handyman Relationship Specialty Start Date End Date Princess Min FNP [address] [place] [address] PCP - General Family Medicine 03/20/22 12/26/23 Princess Min FNP [address] [place] [address] PCP - General Family Medicine 01/21/24 02/03/24 Princess Min FNP [address] [place] [address] PCP - General Family Medicine 02/10/24 Cherelle Roy 6Th Grade TeacherElectronics Warfare Technician 01/24/25 Christine Villaseñor 6Th Grade TeacherElectronics Warfare Technician 04/30/25 documented as of this encounter
--- OUTSIDE RECORDS SUMMARY | 2025-05-07 11:40 | XMS_ITS | Clinical Summary ---
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 diastolic heart failure (HCC) TAKE 1 TABLET BY MOUTH EVERY DAY AT NOON 90 tablet 2024 Active FREESTYLE LITE test stripIndications:Type 2 diabetes mellitus without complication, with long-term current use of insulin (HCC) TEST BLOOD SUGAR TWICE DAILY 100 strip 11 2024 Active topiramate (Topamax) 200 MG tabletIndications:Othe r migraine without status migrainosus, not intractable TAKE 1 TABLET BY MOUTH AT BEDTIME 90 tablet 1 2024 Active montelukast (Singulair) 10 MG tablet TAKE 1 TABLET BY MOUTH AT BEDTIME 90 tablet 3 2024 Active amitriptyline (Elavil) 50 MG tablet Take 1 tablet (50 mg) by mouth at bedtime. 90 tablet 1 2024 Active amLODIPine (Norvasc) 5 MG tablet TAKE 1 TABLET BY MOUTH AT BEDTIME 30 tablet 2024 Active Lantus SoloStar 100 UNIT/ML penIndications:Type 2 diabetes mellitus with hyperglycemia, with long-term current use of insulin (HCC) INJECT 28 UNITS SUBCUTANEOUSLY AT BEDTIME 15 mL 3 2024 Active Ventolin HFA 108 (90 Base) MCG/ACT inhalerIndications:Mil d persistent asthma without complication INHALE 2 PUFFS BY MOUTH EVERY 4 TO 6 HOURS NEEDED 18 g 11 2024 Active Tirzepatide (Mounjaro) 5 MG/0.5ML solution auto-injector Inject 5 mg under the skin 1 (one) time per week. 2 mL 1 06/06 Active albuterol (Ventolin HFA) 108 (90 Base) MCG/ACT inhalerIndications:Mil d persistent asthma without complication INHALE 2 PUFFS BY MOUTH EVERY 4 TO 6 HOURS NEEDED 18 g 11 04/25 Discontinued amitriptyline (Elavil) 50 MG tablet Take 1 tablet (50 mg) by mouth at bedtime. 90 tablet 1 04/13 Discontinued( Reorder (will not trigger notification to Pharmacy)) Lantus SoloStar 100 UNIT/ML penIndications:Type 2 diabetes mellitus with hyperglycemia, with long-term current use of insulin (HCC) INJECT 28 UNITS SUBCUTANEOUSLY AT BEDTIME 15 mL 3 04/18 Discontinued amLODIPine (Norvasc) 5 MG tablet TAKE 1 TABLET BY MOUTH AT BEDTIME 30 tablet 04/13 Discontinued( Reorder (will not trigger notification to Pharmacy)) Tirzepatide (Mounjaro) 2.5 MG/0.5ML solution auto-injector Inject 2.5 mg under the skin 1 (one) time per week. 2 mL 1 04/27 Active Problems Problem Noted Date Diagnosed Date Pulmonary nodule 01/08/2025 Overview (01/08/2025): Followed by [facility] November 2024: Calcified right upper lobe granuloma identified on CT. Plan: repeat 1 year Risk factors: tobacco use Tobacco use 01/08/2025 Overview (01/08/2025): - Cigg/day: 3 - Encouraged smoking cessation resources such as pharmacomtherapy, [facility] smoking cessation group, and [facility] pharmacy smoking cessation clinic - Lung CA screening followed by [facility] - November 2024: Chest CT demonstrated calcified right upper lobe granuloma. Next due: November 2025 History of total knee arthroplasty, left 024 Overview (04/02/2024): 06/09/23 at [facility] [place]. Laureano Assessment & Plan (01/08/2025 3:10 PM EDT): - Persistent pain with (+) effusion s/p fall at home - XR Feb 2024 in [facility] demonstrated increased demineralization along the subjacent proximal tibia, particularly subjacent to the medial flange of the prosthesis with possibile slight medial settling. Large joint effusion. - Apr 2024: Synovasure aspiration left knee by Dr. Laureano. Elevated CRP/sed rate. Joint fluid sent for testing. - Initially scheduled for revision surgery 09/27/24, on hold d/t recommendation for improved asthma control. Following with [facility] and reports breathing well controlled with current regimen. However, T2DM currently not well controlled - Pain control: APAP prn. Short course of oxycodone 5mg daily prn severe pain (5 tablets total), No refills. Reviewed med safety and SE. Assessment & Plan (10/01/2024 7:35 PM EDT): - Persistent pain with (+) effusion s/p fall at home - XR Feb 2024 in [facility] demonstrated increased demineralization along the subjacent proximal tibia, particularly subjacent to the medial flange of the prosthesis with possibile slight medial settling. Large joint effusion. - Apr 2024: Synovasure aspiration left knee by Dr. Laureano. Elevated CRP/sed rate. Joint fluid sent for testing. - Initially scheduled for revision surgery 09/27/24, but not cleared by anaesthesia. Now pending Pulm clearance (referral through [facility] to [facility]) Assessment & Plan (05/28/2024 7:19 AM EST): - Persistent pain with (+) effusion s/p fall at home - XR Feb 2024 in [facility] demonstrated increased demineralization along the subjacent [...] use, fewer than expected pills, and multiple LIMNOLOGIST cancellations and NCNS, continue with taper for [...] -Left TKA performed 06/09/[address] Laureano ([facility]) Assessment & Plan (03/04/2024 6:12 PM [...] without complication 09/08/2017 Overview (01/08/2025): -Following with [facility] pul[facility] -Continues with Breo Ellipta 200 mcg [...] although difficulties with insurance coverage. -Spoke with [facility] pharmacy, will attempt to change to generic albuterol to see if works better for pt Diastolic heart failure 02/03/2017 Overview (05/28/2024): -Continues on Irbestartan 300mg daily at bedtime, furosemide 40mg daily, on SGLT2 -Following with [facility] - Dr. Calle -Pt denies SOB, swelling in extremities, difficulty breathing Assessment & Plan (01/08/2025 3:08 PM EDT): - reports no longer able to f/up with [facility] d/t NS policy - will refer to [facility] Cards. Reviewed importance of keeping scheduled appts [...] recommendations reviewed -Pt to follow up with [facility] Previous medications: - Ozempic (DC in [...] intolerance, MCKEON, or palpitations -Previously followed by [facility], pt will call to schedule f/u Lab Results Component Value Date TSH 0.33 04/05/2023 Insomnia 05/27/2016 Trigger finger 05/27/2016 Overview (05/28/2024): Followed by [facility] PRN Vitamin D deficiency 04/17/2014 Cobalamin deficiency 03/23/2014 Mixed anxiety and depressive disorder 10/06/2013 Assessment & Plan (05/28/2024 7:27 AM EST): -Following with psych team from [facility] -Continue with Wellbutrin 300mg daily, -Denies [...] Encounters Date Type Department Care Team Description 05/07/2025 10:15 AM EDT Office Visit [facility] [address] [place] [address] Princess Min FNP Type 2 diabetes mellitus without complication, with long-term current use of insulin (HCC) (Primary Dx); Moderate persistent asthma without complication; Routine health maintenance 05/07/2025 Travel 05/04/2025 Telephone [facility] [address] [place] [address] Princess Min FNP Chart Prep 04/30/2025 Telephone [facility] [address] [place] [address] Princess Min FNP Care Coordination (CP Care Plan) 04/24/2025 9:40 AM EDT Office Visit [facility] OPTOMET[facility] [address] [place] [address] Fransico, Gertrudis, OD Type 2 diabetes mellitus without complication, with long-term current use of insulin (CMS/HCC) (Primary Dx) 04/24/2025 Travel 04/24/2025 Refill [facility] MED[facility] [address] [place] [address] Princess Min FNP Mild persistent asthma without complication 04/20/2025 Travel 04/17/2025 Refill [facility] [address] [place] [address] Princess Min FNP Type 2 diabetes mellitus with hyperglycemia, with long-term current use of insulin (CMS/HCC) 04/13/2025 Refill [facility] [address] [place] [address] Princess Min FNP 03/29/2025 Telephone [facility] [address] [place] [address] Princess Min FNP 03/28/2025 10:15 AM EDT Office Visit [facility] [address] [place] [address] Princess Min FNP Type 2 diabetes mellitus without complication, with long-term current use of insulin (CMS/HCC) (Primary Dx); Dietary counseling; Exercise counseling; Stress incontinence 03/28/2025 Telephone [facility] [address] [place] [address] Princess Min FNP Care Coordination 03/28/2025 Travel 03/27/2025 Telephone [facility] [address] [place] [address] Princess Min FNP CHART PREP 03/21/2025 Refill [facility] [address] [place] [address] Princess Min FNP 03/13/2025 Telephone [facility] [address] [place] [address] Princess Min FNP Medication Question 03/08/2025 Refill [facility] [address] [place] [address] Princess Min FNP Other migraine without status migrainosus, not intractable 03/02/2025 Patient Outreach [facility] [address] [place] [address] Princess Min FNP Care Coordination (CHW outreach for SDOH food needs-referral completed /) 03/01/2025 Telephone [facility] [address] [place] [address] Princess Min FNP 02/24/2025 Refill [facility] [address] [place] [address] Princess Min FNP Type 2 diabetes mellitus without complication, with long-term current use of insulin ([facility]) 02/16/2025 Refill [facility] [address] [place] [address] Princess Min FNP Chronic diastolic heart failure ([facility]) 02/12/2025 Patient Outreach [facility] [address] [place] [address] Princess Min FNP Care Coordination (CHW outreach for SDOH PT-1 and food needs-referral completed /) 02/12/2025 Telephone [facility] [address] [place] [address] Princess Min FNP p t1 02/12/2025 Telephone [facility] [address] [place] [address] Corina Pina MD No Show 02/07/2025 Refill [facility] [address] [place] [address] Princess Min FNP from Last 3 Months Immunizations Immunization Administration [...] PCV 20 05/05/2022 Pneumococcal Polysaccharide PPSV23 09/23/2016, RSV Bivalent 12/23/2023 TD (adult), 2 Lf tetanus tox oid, [...] Mass Index 43.84 05/07/2025 10:55 AM EDT Plan of Treatment Upcoming Encounters Date Type Department Care Team (Late st Contact Info) Description 05/21/2025 11:30 AM EDT Office Visit [facility] OPT[facility] [address] [place] [address] FransicoGertrudis gallegos, OD [address] [place] [address] Health Maintenance Due Date Last Done Comments [...] history exists Influenza Vaccine (#1) 2025 , 04/28/2022, 05/20/2021, Additional history exists Diabetes: Hemoglobin A1C 06/27/2025 [...] complication, with long-term current use of insulin ([facility]) POCT GLYCATED HEMOGLOBIN, TOTAL Routine 03/28/2025 10:58 AM EDT Type 2 diabetes mellitus without complication, with long-term current use of insulin ([facility]) POCT GLUCOSE Routine 03/28/2025 10:48 AM EDT Type 2 diabetes mellitus without complication, with long-term current use of insulin ([facility]) ALBUMIN, RANDOM URINE W/CREATININE Routine [...] Recently Relevant to Health Maintenance Results * POCT glucose manually resulted (05/07/2025 10:56 AM EDT) Only the most recent of2 resultswithin the time period is included. Glucose Blood, POC 185 60 - 200 mg/dL QC Media Lot # Comment:[id number] Lot# Expiration Date Comment:09/02/2025 Blood Capillary blood specimen / Unknown 05/07/2025 10:56 AM EDT [employer] [facility] POINT OF CARE TEST ENTER/EDIT ORDERABLES Final Result * (ABNORMAL) POCT HGB A1C (03/28/2025 10:58 AM EDT) Hemoglobin A1C 7.9(A) 4.0 - 5.7 % QC Media Lot # [id number] Lot# Expiration Date ,[id number] Blood 03/28/2025 10:5 8 AM EDT [employer] BEEF GRADER POINT OF CARE TEST ENTER/EDIT ORDERABLES Final Result * Albumin, Random Urine W/Creatinine (09/18/2024 11:31 AM EST) Creatinine, Urine 65.49 mg/dL [facility] Microalbumin Urine 8.0 mg/L H [facility] Microalbum Creatinine Ratio Ur 12.2 <30 ug/mg cr [facility] Comment:Albumin/Creatinine R atio Reference Ranges: Normal: < 30 ug/mg creatinine Microalbuminuria: 30 - 300 ug/mg creatinineClinical Albuminuria: > 300 ug/mg creatinine Urine 09/18/2024 11:3 1 AM EST 09/18/2024 2:41 PM EST Princess Helloworldida [facility] URINE ORDERABLES Final Res ult Performing Organization Address [facility] de Phone Number [facility] [address] [place] [phone] * Hepatitis C Viral RNA, Quantitative, Real-Time PCR (09/18/2024 11:22 AM EST) [facility] Hepatitis C Viral Load <15 NOT DETECTED NOT DETECTED IU/mL [facility] HCV Log PCR <1.18 NOT DETECTED NOT DETECTED Log IU/mL [facility] Comment:For additional infor mation, please refer tohttp://education.Examify/faq/[email or web address](This link is being provided for informational/educational purposes only.)THIS TEST WAS PERFORMED AT:[facility] [place] [id number] GARCIA MD Blood 09/18/2024 11:2 2 AM EST 09/18/2024 2:41 PM EST Princess Helloworldida [facility] BLOOD ORDERABLES Final Res ult Performing Organization Address [facility] de Phone Number [facility] [address] [place] [phone] * HIV-1/2 Antigen and Antibodies, Fourth Generation, with Reflexes (09/18/2024 11:22 AM EST) Pathologist [facility] HIV AB/AG Nonreactive Nonreactive [facility] Comment:HIV-1 p24 Ag and/or HIV-1/HIV-2 Ab not detected.A test result that is nonreactive does not exclude thepossibility of exposure to or infection with HIV-1 and/orHIV-2. Nonreactive results in this assay for individualswith prior exposure to HIV-1 and/or HIV-2 may be due toantigen and antibody levels that are below the limit ofdetection of this assay.The [facility] HIV Ag/Ab Combo assay result andsupplemental assay results should be interpreted inconjunction with the patient's clinical presentation,history and other laboratory results. If the results areinconsistent with clinical evidence, additional testing issuggested to confirm the result. Blood Venous blood specimen / Unknown 09/18/2024 11:22 AM EST 09/18/2024 2:41 PM EST us Princess Min [facility] BLOOD ORDERABLES Final Res ult [facility] [address] [place] [phone] * Lipid Panel, Standard (09/18/2024 11:02 AM EST) Triglycerides 136 <150 mg/dL [facility] Comment:Desirable Triglyceri de: less than 150 mg/dLBorderline High Triglyceride 150-199 mg/dLHigh Triglyceride: 200-499 mg/dLVery High Triglyceride: greater than or equal to 5OO mg/dL Cholesterol 156 <200 mg/dL [facility] Comment:Desirable Cholestero l: less than 200 mg/dLBorderline High Cholesterol: 200-239 mg/dLHigh Cholesterol: greater than 239 mg/dL LDL Cholesterol Calculated 75 <100 mg/dL [facility] Comment:Desirable LDL: less than 100 mg/dLNear Optimal/Above Optimal LDL: 110- 129 mg/dLBorderline High LDL: 130-159 mg/dLHigh LDL: 160-189 mg/dLVery High LDL: greater than or equal to 190 mg/dL HDL Cholesterol 54 >40 mg/dL [facility] Comment:Desirable HDL: great er than 40 mg/dL Note: This HDL assay may give artificially low results in patients with liver disease. Blood Venous blood specimen / Unknown 09/18/2024 11:02 AM EST 09/18/2024 2:41 PM EST Princess Min BEEF GRADER LAB BLOOD ORDERABLES Final Res ult [facility] [address] [place] [phone] * BI Mammogram Screening Tomosynthesis Bilateral (02/09/2023 11:07 AM EDT) Anatomical Region Laterality Modality Breast Bilateral Mammography 02/09/2023 11:0 7 AM EDT Narrative 03/05/2023 6:25 AM EDT [address] [place] [address] Mammography Report Signed Patient: Argelia Messina MR#: [id number] : 1965 Acct:[id number] Age/Sex: 57 / F ADM Date: 02/09/23 Loc: HO.MAMMO Attending Dr: Princess VALENZUELA Ordering Physician: Princess Min Results: Date of Service: 02/09/23 Follow Up: Procedure(s): MM tomosynthesis screening BI Accession Number(s): [id number] cc: Princess Min EXAMINATION: MM SCREENING DIGITAL [...] in OV> 03/05/23 0623 DD/ 1107 TD/TT: Reed Or Wind Instrument Tuner: Procedure Note Donotuseinterpreter, Image - 03/05/2023 [facility] [address] [place] [address] Mammography Report Signed Patient: Nini Messina#: [id number] : 1965Acct:[id number] Age/Sex: 57 / FADM Date: 02/09/23 Loc: HO.MAMMO Attending Dr: Princess Min BEEF GRADER Ordering Physician: Princess MinPResults: Date of Service: 02/09/23Follow Up: Procedure(s): MM tomosynthesis screening BI Accession Number(s): [id number] cc: Princess Min EXAMINATION: MM SCREENING DIGITAL [...] in OV> 03/05/23 0623 DD/ 1107 TD/TT: Reed Or Wind Instrument Tuner: Princess Phalen BEEF GRADER IMG BI PROCEDURES Final Result * Colonoscopy (05/24/2017) Colonoscopy Normal Normal Historical Provider HEALTH MAINTENANCE Final Result from Last 3 Months or Most Recently Relevant to Health Maintenance Insurance [facility] C3 DENTAL-[facility] MEDICAID STAND ADULT Care Teams Talent Management Specialist Relationship Specialty Start Date End Date Princess Min FNP [address] [place], [place] [phone] PCP - General Family Medicine 02/10/24 Cherelle Roy Hvac Project ManagerEquipment Superintendent 01/24/25 Christine Villaseñor Hvac Project ManagerEquipment Superintendent 04/30/25
--- OUTSIDE RECORDS SUMMARY | 2025-05-07 11:41 | XMS_ITS | Encounter Summary ---
Author Organization [employer] Address [address] [facility] [address] [place] [address] Care Team Providers Care Reproduction Technician Name Role Phone Princess Min Primary Care Provider [phone] Princess Min Primary Care Provider Reason for Visit * Reason Onset Date Comments PT1 02/03/2024 Encounter Details Date Type Department Care Team (Late st Contact Info) Description 02/03/2024 Telephone [facility] [address] [place] [address] Princess Min FNP [address] [place], [place] [phone] PT1 Social History Tobacco Use Types Packs/Day [...] Y/N: Yes Provider name or facility name: [facility] Facility Address: [address] [place] [address] Escort needed: Y/N: No Do you have a wheelchair: Y/N: No If yes- Manual or electric: No, but cane. Visits; N/A documented in this encounter Plan of Treatment Upcoming Encounters Date Type Department Care Team (Late st Contact Info) Description 05/21/2025 11:30 AM EDT Office Visit [facility] OPT[facility] [address] [place] [address] Fransico, Gertrudis, OD [address] [place] [address] documented as of this encounter Visit Diagnoses Not on filedocumented in this encounter Additional Health Concerns Assessment Noted Time PHQ-9 Depression Total Score: 10 023 10:39 AM EDT documented as of this encounter Care Teams Reproduction Technician Relationship Specialty Start Date End Date Princess Min FNP [address] [place] [address] PCP - General Family Medicine 01/21/24 02/03/24 Princess Min FNP [address] [place] [address] PCP - General Family Medicine 02/10/24 Cherelle Roy Tobacco SorterClay Processing Factory Worker 01/24/25 Christine Villaseñor Tobacco SorterClay Processing Factory Worker 04/30/25 documented as of this encounter
--- OUTSIDE RECORDS SUMMARY | 2025-05-07 11:41 | XMS_ITS | Encounter Summary ---
Author Organization [employer] Address [address] [facility] 7t [place] [address] Care Team Providers Care Multifold Operator Name Role Phone Princess Min Primary Care Provider [phone] Princess Min Primary Care Provider [phone] Reason for Visit * Reason Comments Med Refill Encounter Details Date Type Department Care Team ([facility] st Contact Info) Description 01/02/2024 Refill [facility] MEDICINE [address] [place] [address] Princess Min FNP [address] [place], [place] [phone] Social History Tobacco Use Types Packs/Day Years [...] Description 05/21/2025 11:30 AM EDT Office Visit [facility] OPTOMETRY [address] [place] [address] FransicoGertrudis gallegos, OD [address] [place] [address] documented as of this encounter Visit Diagnoses Not on filedocumented in this encounter Additional Health Concerns Assessment Noted Time PHQ-9 Depression Total Score: 10 023 10:39 AM EDT documented as of this encounter Care Teams Multifold Operator Relationship Specialty Start Date End Date Princess Min FNP [address] [place] [address] PCP - General Family Medicine 01/21/24 02/03/24 Princess Min FNP [address] [place] [address] PCP - General Family Medicine 02/10/24 Cherelle Roy Rn EmergencyCook Chill Technician 01/24/25 Christine Villaseñor Rn EmergencyCook Chill Technician 04/30/25 documented as of this encounter
--- OUTSIDE RECORDS SUMMARY | 2025-05-07 11:41 | XMS_ITS | Encounter Summary ---
Author Organization [employer] Address 75 [facility] 7t [place] [address] Care Team Providers Care Traffic Signal Mechanic Name Role Phone Princess Min Primary Care Provider [phone] Princess Min Primary Care Provider [phone] Reason for Visit * Reason Onset Date Comments New Med Request 02/03/2024 Encounter Details Date Type Department Care Team (Late st Contact Info) Description 02/03/2024 Telephone [facility] MEDICINE [address] [place] [address] Princess Min FNP [address] [place], [place] [phone] New Med Request Social History Tobacco Use [...] Description 05/21/2025 11:30 AM EDT Office Visit [facility] OPTOMETRY [address] [place] [address] Fransico, Gertrudis, OD 230 [place] [address] documented as of this encounter Visit Diagnoses Not on filedocumented in this encounter Additional Health Concerns Assessment Noted Time PHQ-9 Depression Total Score: 10 023 10:39 AM EDT documented as of this encounter Care Teams Traffic Signal Mechanic Relationship Specialty Start Date End Date Princess Min FNP [address] [place] [address] PCP - General Family Medicine 01/21/24 02/03/24 Princess Min FNP [address] [place] [address] PCP - General Family Medicine 02/10/24 Cherelle Roy Conveyor Weigher OperatorGolf Cart Maker 01/24/25 Christine Villaseñor Conveyor Weigher OperatorGolf Cart Maker 04/30/25 documented as of this encounter
--- OUTSIDE RECORDS SUMMARY | 2025-05-07 11:41 | XMS_ITS | Encounter Summary ---
Author Organization [employer] Address 75 [facility] 7t [place] [address] Care Team Providers Care Arbor Press Operator Name Role Phone Princess Min GENERAL INTERNIST Primary Care Provider [phone] Reason for Visit * Reason Comments Med Refill Encounter Details Date Type Department Care Team ([facility] st Contact Info) Description 11/09/2024 Refill [facility] MED & PEDS [address] [place], [place] [phone] Princess Min FNP [address] [place], [place] [phone] History of total knee arthroplasty, left Social [...] Description 05/21/2025 11:30 AM EDT Office Visit [facility] OPTOMETRY [address] [place] [address] Gertrudis Bateman, OD 230 [place] [address] documented as of this encounter Visit Diagnoses Diagnosis History of total knee arthroplasty, left documented in this encounter Additional Health Concerns Assessment Noted Time PHQ-9 Depression Total Score: 3 03/03/20 24 11:33 AM EDT documented as of this encounter Care Teams Arbor Press Operator Relationship Specialty Start Date End Date Princess Min FNP 230 [place] [address] PCP - General Family Medicine 02/10/24 Cherelle Roy Crm Marketing AnalystNutrition Intern 01/24/25 Christine Villaseñor Crm Marketing AnalystNutrition Intern 04/30/25 documented as of this encounter
--- OUTSIDE RECORDS SUMMARY | 2025-05-07 11:41 | XMS_ITS | Patient Health Record ---
Author Organization [facility] Address [address] [place] [address] Care Team Providers Care Production Packager Name Role Phone OMERO SOTO MD Primary Care Provider Naun Silva Jr, Aidan Otero [phone] Reason For Referral No Information Encounters Encounter Location Date Provider Diagnosis [facility] [address] [place] [address] 06/21/2024 Aidan Silva Jr Plan Of Treatment No Information Insurance Providers Payer Name Payer Address Payer Phone Subscriber Number Group Number Insured Name Patient Relationship to Insured Coverage Start Date Coverage End Date MEDICAID OF [facility] [address] [place] [phone] [id number] NIELS CABALLERO Self - patient is the insured
--- OUTSIDE RECORDS SUMMARY | 2025-05-07 11:41 | XMS_ITS | Encounter Summary ---
Author Organization [employer] Address [address] [facility] 7t [place] [address] Care Team Providers Care Chuck Tender Name Role Phone Princess Min Primary Care Provider [phone] Reason for Visit * Reason Onset Date Comments Med Refill 02/11/2024 Encounter Details Date Type Department Care Team (Late st Contact Info) Description 02/11/[address] [facility] MEDICINE [address] [place] [address] Princess Min FNP [address] [place], [place] [phone] Med Refill Social History Tobacco Use Types [...] 1:02 PM EDT Medication was sent to [facility] on 11/29/23 with 3 refills. * Telephone Encounter - Drake Levy - 02/11/2024 11:57 AM EDT TC from pt requesting medication refill. Medications needing refill : Asmanex HFA 200 MCG/ACT aerosol To be sent to: [facility] - [place], [place] - [address] [facility] documented in this encounter Plan of Treatment Upcoming Encounters Date Type Department Care Team (Late st Contact Info) Description 05/21/2025 11:30 AM EDT Office Visit [facility] OPTOMETRY [address] [place] [address] Gertrudis Bateman, OD 230 [place] [address] documented as of this encounter Visit Diagnoses Not on filedocumented in this encounter Additional Health Concerns Assessment Noted Time PHQ-9 Depression Total Score: 10 023 10:39 AM EDT documented as of this encounter Care Teams Chuck Tender Relationship Specialty Start Date End Date Princess Min FNP 230 [place] [address] PCP - General Family Medicine 7/18/24 Cherelle Roy Cork Insulator HelperSales Store Checker 01/24/25 Christine Villaseñor Cork Insulator HelperSales Store Checker 04/30/25 documented as of this encounter
--- OUTSIDE RECORDS SUMMARY | 2025-05-07 11:41 | XMS_ITS | Encounter Summary ---
Author Organization [employer] Address 75 [facility] 7t [place] [address] Care Team Providers Care Paving Bed Maker Name Role Phone Princess Min Primary Care Provider [phone] Princess Min Primary Care Provider [phone] Princess Min Primary Care Provider [phone] Reason for Visit * Reason Comments Med Refill Encounter Details Date Type Department Care Team (Late Contact Info) Description 08/11/2022 Refill [facility] MEDICINE [address] [place] [address] Princess Min FNP 505 [place], [place] [phone] Cervical spondylosis Social History Tobacco Use Types [...] Department Care Team (Late Contact Info) Description 05/21/2025 11:30 AM EDT Office Visit [facility] OPTOMETRY [address] [place], [place] [phone] Gertrudis Bateman, OD 230 [place] [address] documented as of this encounter Visit Diagnoses Diagnosis Cervical spondylosis Cervical spondylosis without myelopathy documented in this encounter Care Teams Paving Bed Maker Relationship Specialty Start Date End Date Princess Min FNP [address] [place] [address] PCP - General Family Medicine 03/20/22 12/26/23 Princess Min FNP [address] [place] [address] PCP - General Family Medicine 01/21/24 02/03/24 Princess Min FNP [address] [place] [address] PCP - General Family Medicine 02/10/24 Cherelle Roy Loss Prevention ConsultantChief Technologist 01/24/25 Christine Villaseñor Loss Prevention ConsultantChief Technologist 04/30/25 documented as of this encounter
--- OUTSIDE RECORDS SUMMARY | 2025-05-07 11:41 | XMS_ITS | Encounter Summary ---
Author Organization [employer] Address 75 [facility] 7t [place] [address] Care Team Providers Care Senior Accountant Cpa Name Role Phone Princess Min Primary Care Provider [phone] Princess Min Primary Care Provider [phone] Reason for Visit * Reason Comments Med Refill Encounter Details Date Type Department Care Team ([facility] st Contact Info) Description 02/03/2024 Refill [facility] [address] [place] [address] Princess Min FNP [address] [place], [place] [phone] Hypothyroidism, unspecified type Social History Tobacco Use [...] Description 05/21/2025 11:30 AM EDT Office Visit [facility] OPTOMETRY [address] [place] [address] Fransico, Gertrudis, OD [address] [place] [address] documented as of this encounter Visit Diagnoses Diagnosis Hypothyroidism, unspecified type documented in this encounter Additional Health Concerns Assessment Noted Time PHQ-9 Depression Total Score: 10 023 10:39 AM EDT documented as of this encounter Care Teams Senior Accountant Cpa Relationship Specialty Start Date End Date Princess Min FNP [address] [place] [address] PCP - General Family Medicine 01/21/24 02/03/24 Princess Min FNP [address] [place] [address] PCP - General Family Medicine 02/10/24 Cherelle Roy Jelly MakerSwing Driver 01/24/25 Christine Villaseñor Jelly MakerSwing Driver 04/30/25 documented as of this encounter
--- OUTSIDE RECORDS SUMMARY | 2025-05-07 11:41 | XMS_ITS | Encounter Summary ---
Author Organization [employer] Address 75 [facility] 7t [place] [address] Care Team Providers Care Assistant Director Of Residence Life Name Role Phone Princess Min Primary Care Provider [phone] Princess Min Primary Care Provider [phone] Princess Min Primary Care Provider [phone] Reason for Visit * Reason Comments Med Refill Encounter Details Date Type Department Care Team (Late Contact Info) Description 08/07/2022 Refill [facility] MEDICINE [address] [place] [address] Princess Min FNP [address] [place], [place] [phone] Cervical spondylosis Social History Tobacco Use Types [...] 11:30 AM EDT Office Visit [facility] OPTOMETRY [address] [place], [place] [phone] Gertrudis Bateman, OD [address] [place] [address] documented as of this encounter Visit Diagnoses Diagnosis Cervical spondylosis Cervical spondylosis without myelopathy documented in this encounter Care Teams Assistant Director Of Residence Life Relationship Specialty Start Date End Date Princess Min FNP [address] [place] [address] PCP - General Family Medicine 03/20/22 12/26/23 Princess Min FNP [address] [place] [address] PCP - General Family Medicine 01/21/24 02/03/24 Princess Min FNP [address] [place] [address] PCP - General Family Medicine 02/10/24 Cherelle Roy Press Assistant And FeederFuel Conversion Technician 01/24/25 Christine Villaseñor Press Assistant And FeederFuel Conversion Technician 04/30/25 documented as of this encounter
--- OUTSIDE RECORDS SUMMARY | 2025-05-07 11:41 | XMS_ITS | Encounter Summary ---
Author Organization [employer] Address 75 [facility] 7t [place] [address] Care Team Providers Care Pantograph Setter Name Role Phone Princess Min Primary Care Provider Princess Min Primary Care Provider [phone] Reason for Visit * Reason Comments Med Change Request Encounter Details Date Type Department Care Team ([facility] st Contact Info) Description 12/30/2023 Refill [facility] CH[facility] MED & PEDS [address] [place], [place] [phone] Princess Min FNP 505 [place] [address] Social History Tobacco Use Types Packs/Day Years [...] Description 05/21/2025 11:30 AM EDT Office Visit [facility] OPTOMETRY [address] [place] [address] Fransico, Gertrudis, OD [address] [place] [address] documented as of this encounter Visit Diagnoses Not on filedocumented in this encounter Additional Health Concerns Assessment Noted Time PHQ-9 Depression Total Score: 023 10:39 AM EDT documented as of this encounter Care Teams Pantograph Setter Relationship Specialty Start Date End Date Princess Min FNP [address] [place] [address] PCP - General Family Medicine 01/21/24 02/03/24 Princess Min FNP [address] [place] [address] PCP - General Family Medicine 02/10/24 Cherelle Roy Inside Sales TrainerHand Picker 01/24/25 Christine Villaseñor Inside Sales TrainerHand Picker 04/30/25 documented as of this encounter
--- OUTSIDE RECORDS SUMMARY | 2025-05-07 11:42 | XMS_ITS | Encounter Summary ---
Author Organization [employer] Address 75 [facility] 7t [place] [address] Care Team Providers Care Shaft Mechanic Name Role Phone Princess Min Primary Care Provider [phone] Princess Min Primary Care Provider [phone] Princess Min Primary Care Provider [phone] Reason for Visit * Reason Onset Date Comments PT1 04/27/2023 Encounter Details Date Type Department Care Team (Late st Contact Info) Description 04/27/2023 Telephone [facility] MEDICINE [address] [place] [address] Princess Min FNP [address] [place], [place] [phone] PT1 Social History Tobacco Use Types Packs/Day [...] Certification of Serious Illness is ready for warehouse order picker at medical records. * Telephone Encounter - Barbie Montanez - 04/28/2023 3:58 PM EDT PT-1 submitted for patient. They will receive a letter of approval or denial in the mail. * Telephone Encounter - Velia Berry - 04/27/2023 4:43 PM EDT Tc form pt requesting PT1 Date: 05/06/23 Time: 10 AM address: [address] [place] [address] specialty: Psychologist # visits: n/a insurance claims adjuster: no Wheelchair: no documented in this encounter Plan of Treatment Upcoming Encounters Date Type Department Care Team (Late st Contact Info) Description 05/21/2025 11:30 AM EDT Office Visit [facility] OPTOMETRY [address] [place] [address] Fransico, Gertrudis, OD [address] [place] [address] documented as of this encounter Visit Diagnoses Not on filedocumented in this encounter Additional Health Concerns Assessment Noted Time PHQ-9 Depression Total Score: 10 023 10:39 AM EDT documented as of this encounter Care Teams Shaft Mechanic Relationship Specialty Start Date End Date Princess Min FNP 230 [place] [address] PCP - General Family Medicine 03/20/22 12/26/23 Princess Min FNP [address] [place] [address] PCP - General Family Medicine 01/21/24 02/03/24 Princess Min FNP [address] [place] [address] PCP - General Family Medicine 02/10/24 Cherelle Roy Forming Machine Upkeep MechanicDeputy Coroner 01/24/25 Christine Villaseñor Forming Machine Upkeep MechanicDeputy Coroner 04/30/25 documented as of this encounter
--- OUTSIDE RECORDS SUMMARY | 2025-05-07 11:42 | XMS_ITS | Encounter Summary ---
Author Organization [employer] Address 75 [facility] 7t [place] [address] Care Team Providers Care Vessel Ordinary Seaman Name Role Phone Princess Min Primary Care Provider [phone] Princess Min Primary Care Provider [phone] Encounter Details Date Type Department Care Team (Late st Contact Info) Description 12/28/2023 Telephone [facility] MEDICINE [address] [place] [address] Princess Min FNP [address] [place], [place] [phone] Social History Tobacco Use Types Packs/Day Years [...] t he electric, gas, oil or water [employer] threatened to shut off services in your [...] 05/21/2025 11:30 AM EDT Office Visit [facility] OPTOMETRY [address] [place] [address] Fransico, Megan, OD [address] [place] [address] documented as of this encounter Visit Diagnoses Not on filedocumented in this encounter Additional Health Concerns Assessment Noted Time PHQ-9 Depression Total Score: 10 023 10:39 AM EDT documented as of this encounter Care Teams Vessel Ordinary Seaman Relationship Specialty Start Date End Date Princess Min FNP [address] [place] [address] PCP - General Family Medicine 01/21/24 02/03/24 Princess Min FNP [address] [place] [address] PCP - General Family Medicine 02/10/24 Cherelle Roy Timber HandSupervisor Ship Maintenance Services 01/24/25 Christine Villaseñor Timber HandSupervisor Ship Maintenance Services 04/30/25 documented as of this encounter
--- OUTSIDE RECORDS SUMMARY | 2025-05-07 11:42 | XMS_ITS | Encounter Summary ---
Author Organization [employer] Address 75 [facility] 7t [place] [address] Care Team Providers Care Opto Mechanical Engineer Name Role Phone Princess Min Primary Care Provider [phone] Reason for Visit * Reason Onset Date Comments Durable Medical Equipment 09/12/2024 Encounter Details Date Type Department Care Team (Late st Contact Info) Description 09/12/2024 Telephone [facility] MEDICINE [address] [place] [address] Princess Min FNP [address] [place], [place] [phone] Durable Medical Equipment Social History Tobacco Use [...] Description 05/21/2025 11:30 AM EDT Office Visit [facility] OPTOMETRY [address] [place] [address] Gertrudis Bateman, OD 230 [place] [address] documented as of this encounter Visit Diagnoses Not on filedocumented in this encounter Additional Health Concerns Assessment Noted Time PHQ-9 Depression Total Score: 3 03/03/20 24 11:33 AM EDT documented as of this encounter Care Teams Opto Mechanical Engineer Relationship Specialty Start Date End Date Princess Min FNP [address] [place] [address] PCP - General Family Medicine 02/10/24 Cherelle Roy Drapery MakerNetworking Engineer 01/24/25 Christine Villaseñor Drapery MakerNetworking Engineer 04/30/25 documented as of this encounter
--- OUTSIDE RECORDS SUMMARY | 2025-05-07 11:42 | XMS_ITS | Encounter Summary ---
Author Organization [id number] Address 75 [facility] 7t [place] [address] Care Team Providers Care Meter Maintenance Person Name Role Phone Princess Min Primary Care Provider [phone] Princess Min Primary Care Provider [phone] Princess Min Primary Care Provider [phone] Reason for Visit * Reason Onset Date Comments PCP Switch 06/22/2023 Encounter Details Date Type Department Care Team ([facility] st Contact Info) Description 06/22/2023 Telephone [facility] MEDICINE [address] [place] [address] Princess Min FNP [address] [place], [place] [phone] PCP Switch Social History Tobacco Use Types [...] be seen by a doctor not a [employer] credit underwriter did express that it will be sometime before the change can take place patient is aware and ok with response. documented in this encounter Plan of Treatment Upcoming Encounters Date Type Department Care Team (Late st Contact Info) Description 05/21/2025 11:30 AM EDT Office Visit [facility] OPTOMETRY [address] [place] [address] Fransico, Gertrudis, OD [address] [place] [address] documented as of this encounter Visit Diagnoses Not on filedocumented in this encounter Additional Health Concerns Assessment Noted Time PHQ-9 Depression Total Score: 10 023 10:39 AM EDT documented as of this encounter Care Teams Meter Maintenance Person Relationship Specialty Start Date End Date Princess Min FNP [address] [place] [address] PCP - General Family Medicine 03/20/22 12/26/23 Princess Mni FNP [address] [place] [address] PCP - General Family Medicine 01/21/24 02/03/24 Princess Min FNP [address] [place] [address] PCP - General Family Medicine 02/10/24 Cherelle Roy Activities AttendantExceptional Children'S Teacher 01/24/25 Christine Villaseñor Activities AttendantExceptional Children'S Teacher 04/30/25 documented as of this encounter
--- OUTSIDE RECORDS SUMMARY | 2025-05-07 11:42 | XMS_ITS | Encounter Summary ---
Author Organization [employer] Address 75 [facility] 7t [place] [address] Care Team Providers Care Fountain Attendant Name Role Phone Princess Min Primary Care Provider [phone] Princess Min Primary Care Provider [phone] Princess Min Primary Care Provider [phone] Reason for Visit * Reason Onset Date Comments Appointment Request 08/03/2022 Encounter Details Date Type Department Care Team ([facility] st Contact Info) Description 08/03/2022 Telephone [facility] MEDICINE [address] [place] [address] Princess Min FNP [address] [place], [place] [phone] Appointment Request Social History Tobacco Use Types [...] 12:26 PM EST Returned pt call via P/I#[id number], pt cancelled todays ENERGY AND SUSTAINABILITY MANAGER RV appt scheduled 11am. Pt previously cancelled 07/16/22 ENERGY AND SUSTAINABILITY MANAGER RV appt. Attempted to reschedule appt, offered [...] her oxycodone script and that per her ENERGY AND SUSTAINABILITY MANAGER agreement she must come in within 24 hours for a random urine. Pt stated she will call back when she is available to reschedule. Will FYI PCP. * Telephone Encounter - Jareth Cifuentes - 08/03/2022 11:54 AM EST Tc from pt requesting to r/s appt 08/03/22 ( ENERGY AND SUSTAINABILITY MANAGER RV) pt states not able to come due to a lost in the family. Please contact pt at [phone] documented in this encounter Plan of Treatment Upcoming Encounters Date Type Department Care Team (Late st Contact Info) Description 05/21/2025 11:30 AM EDT Office Visit [facility] OPTOMETRY [address] [place] [address] Fransico, Gertrudis, OD [address] [place] [address] documented as of this encounter Visit Diagnoses Not on filedocumented in this encounter Care Teams Fountain Attendant Relationship Specialty Start Date End Date Princess Min FNP [address] [place] [address] PCP - General Family Medicine 03/20/22 12/26/23 Princess Min FNP [address] [place] [address] PCP - General Family Medicine 01/21/24 02/03/24 Princess Min FNP [address] [place] [address] PCP - General Family Medicine 02/10/24 Cherelle Roy Senior It Security AnalystDirector Of Financial Reporting 01/24/25 Christine Villaseñor Senior It Security AnalystDirector Of Financial Reporting 04/30/25 documented as of this encounter
--- OUTSIDE RECORDS SUMMARY | 2025-05-07 11:42 | XMS_ITS | Encounter Summary ---
Author Organization [employer] Address [address] [facility] 7t [place] [address] Care Team Providers Care Medical Review Coordinator Name Role Phone Princess Min Primary Care Provider [phone] Reason for Visit * Reason Onset Date Comments Nurse Triage 09/27/2024 Encounter Details Date Type Department Care Team ([facility] st Contact Info) Description 09/27/2024 Telephone [facility] MEDICINE [address] [place] [address] Princess Min FNP [address] [place], [place] [phone] Nurse Triage Social History Tobacco Use Types [...] pt to triage, spoke to pt. through [place] transfer coordinator. pt states went for surgery this morning, [...] distress. given appt with PCP Wednesday in [facility] at 11:15 for exam and recheck. [...] above 300 The caller accepted this outcome. [phone] GERMAN Pt states had knee surgery today but it couldn't be performed because the indicated that the wheezing should be checked first since he didn't know what could be happening with the pt and it couldinteract with the anesthesia. documented in this encounter Plan of Treatment Upcoming Encounters Date Type Department Care Team (Late st Contact Info) Description 05/21/2025 11:30 AM EDT Office Visit [facility] OPTOMETRY [address] [place] [address] Gertrudis Bateman, OD [address] [place] [address] documented as of this encounter Visit Diagnoses Not on filedocumented in this encounter Additional Health Concerns Assessment Noted Time PHQ-9 Depression Total Score: 3 03/03/20 24 11:33 AM EDT documented as of this encounter Care Teams Medical Review Coordinator Relationship Specialty Start Date End Date Princess Min FNP [address] [place] [id number] PCP - General Family Medicine 02/10/24 Cherlele Roy Research AsstRelay Associate 01/24/25 Christine Villaseñor Research AsstRelay Associate 04/30/25 documented as of this encounter
--- OUTSIDE RECORDS SUMMARY | 2025-05-07 11:42 | XMS_ITS | Encounter Summary ---
Author Organization [employer] Address [address] [facility] 7t [place] [address] Care Team Providers Care Shrimp Cleaner Name Role Phone Princess Min Primary Care Provider Reason for Visit * Reason Comments Med Refill Encounter Details Date Type Department Care Team ([facility] st Contact Info) Description 09/15/2024 Refill [facility] MEDICINE [address] [place] [address] Princess Min FNP [address] [place], [place] [phone] Social History Tobacco Use Types Packs/Day Years [...] Description 05/21/2025 11:30 AM EDT Office Visit [facility] OPTOMETRY [address] [place] [address] FransicoGertrudis gallegos, OD [address] [place] [address] documented as of this encounter Visit Diagnoses Not on filedocumented in this encounter Additional Health Concerns Assessment Noted Time PHQ-9 Depression Total Score: 3 03/03/20 24 11:33 AM EDT documented as of this encounter Care Teams Shrimp Cleaner Relationship Specialty Start Date End Date Princess Min FNP [address] [place] [address] PCP - General Family Medicine 02/10/24 Cherelle Roy JackerTail Board Worker 01/24/25 Christine Villaseñor JackerTail Board Worker 04/30/25 documented as of this encounter
--- OUTSIDE RECORDS SUMMARY | 2025-05-07 11:42 | XMS_ITS | Encounter Summary ---
Author Organization [employer] Address [address] [facility] 7t [place] [address] Care Team Providers Care Assistant County Engineer Name Role Phone Princess Min Primary Care Provider Princess Min Primary Care Provider [phone] Reason for Visit * Reason Comments Med Change Request Encounter Details Date Type Department Care Team ([facility] st Contact Info) Description 12/28/2023 Refill [facility] CHC MED & PEDS [address] [place], [place] [phone] Princess Min FNP [address] [place] [address] Social History Tobacco Use Types Packs/Day Years [...] Description 05/21/2025 11:30 AM EDT Office Visit [facility] OPTOMETRY [address] [place] [address] Fransico, Gertrudis, OD [address] [place] [address] documented as of this encounter Visit Diagnoses Not on filedocumented in this encounter Additional Health Concerns Assessment Noted Time PHQ-9 Depression Total Score: 10 023 10:39 AM EDT documented as of this encounter Care Teams Assistant County Engineer Relationship Specialty Start Date End Date Princess Min FNP [address] [place] [address] PCP - General Family Medicine 01/21/24 02/03/24 Princess Min FNP [address] [place] [address] PCP - General Family Medicine 02/10/24 Cherelle Roy Geophysical Laboratory SupervisorCareer Development Counselor 01/24/25 Christine Villaseñor Geophysical Laboratory SupervisorCareer Development Counselor 04/30/25 documented as of this encounter
--- OUTSIDE RECORDS SUMMARY | 2025-05-07 11:42 | XMS_ITS | Encounter Summary ---
Author Organization [employer] Address [address] [facility] 7t [place] [address] Care Team Providers Care Head Of Strategy Name Role Phone Princess Min Primary Care Provider [phone] Princess Min Primary Care Provider [phone] Princess Min Primary Care Provider [phone] Reason for Visit * Reason Comments Med Refill Encounter Details Date Type Department Care Team ([facility] st Contact Info) Description 06/14/2023 Refill [facility] MEDICINE [address] [place] [address] Princess Min FNP [address] [place], [place] [phone] Social History Tobacco Use Types Packs/Day Years [...] Description 05/21/2025 11:30 AM EDT Office Visit [facility] OPTOMETRY [address] [place] [address] Fransico, Gertrudis, OD [address] [place] [address] documented as of this encounter Visit Diagnoses Not on filedocumented in this encounter Additional Health Concerns Assessment Noted Time PHQ-9 Depression Total Score: 10 023 10:39 AM EDT documented as of this encounter Care Teams Head Of Strategy Relationship Specialty Start Date End Date Princess Min FNP [address] [place] [address] PCP - General Family Medicine 03/20/22 12/26/23 Princess Min FNP [address] [place] [address] PCP - General Family Medicine 01/21/24 02/03/24 Princess Min FNP [address] [place] [address] PCP - General Family Medicine 02/10/24 Cherelle Roy Cement MasonPreschool Lead Teacher 01/24/25 Christine Villaseñor Cement MasonPreschool Lead Teacher 04/30/25 documented as of this encounter
--- OUTSIDE RECORDS SUMMARY | 2025-05-07 11:42 | XMS_ITS | Encounter Summary ---
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 [...] for the pain. Please contact pt at [phone]. documented in this encounter Plan of Treatment Upcoming Encounters Date Type Department Care Team ([facility] st Contact Info) Description 05/21/2025 11:30 AM EDT Office Visit [facility] OPTOMETRY [address] [place], [place] [phone] Gertrudis Bateman, OD [address] [place] [address] documented as of this encounter Visit Diagnoses Not on filedocumented in this encounter Additional Health Concerns Assessment Noted Time PHQ-9 Depression Total Score: 3 03/03/20 24 11:33 AM EDT documented as of this encounter Care Teams Head Of It Relationship Specialty Start Date End Date Princess Min FNP [address] [place] [address] PCP - General Family Medicine 02/10/24 Cherelle Roy Spanish Speaking NannyDirector Of Convention Services 01/24/25 Christine Villaseñor Spanish Speaking NannyDirector Of Convention Services 04/30/25 documented as of this encounter
--- OUTSIDE RECORDS SUMMARY | 2025-05-07 11:42 | XMS_ITS | Encounter Summary ---
Author Organization [employer] Address [address] [facility] [address] [place] [address] Care Team Providers Care Malt Liquors Sales Supervisor Name Role Phone Mechelle Princess CHANNEL EXECUTIVE Primary Care Provider Encounter Details Date Type Department Care Team ([facility] Contact Info) Description 01/22/2025 Refill [facility] MED [facility] PEDS [address] [place], [place] [phone] Princess Min FNP [address] [place] [address] Social History Tobacco Use Types Packs/Day Years [...] Description 05/21/2025 11:30 AM EDT Office Visit [facility] OPTOMETRY [address] [place] [address] Gertrudis Bateman, OD [address] [place] [address] documented as of this encounter Visit Diagnoses Not on filedocumented in this encounter Additional Health Concerns Assessment Noted Time PHQ-9 Depression Total Score: 3 03/03/20 24 11:33 AM EDT documented as of this encounter Care Teams Malt Liquors Sales Supervisor Relationship Specialty Start Date End Date Princess Min FNP [address] [place] [address] PCP - General Family Medicine 02/10/24 Cherelle Roy Admission LiaisonRags Laborer 01/24/25 Christine Villaseñor Admission LiaisonRags Laborer 04/30/25 documented as of this encounter
--- OUTSIDE RECORDS SUMMARY | 2025-05-07 11:42 | XMS_ITS | Encounter Summary ---
Author Organization [employer] Address [address] [facility] [address] [place] [address] Care Team Providers Care Supervisor Drying Name Role Phone Princess Min Primary Care Provider [phone] Reason for Visit * Reason Onset Date Comments FYI 07/13/2024 Encounter Details Date Type Department Care Team ([facility] st Contact Info) Description 07/13/2024 Telephone [facility] MEDICINE [address] [place] [address] Princess Min FNP [address] [place], [place] [phone] FYI Social History Tobacco Use Types Packs/Day [...] Description 05/21/2025 11:30 AM EDT Office Visit [facility] OPTOMETRY [address] [place] [address] Fransico, Gertrudis, OD [address] [place] [address] documented as of this encounter Visit Diagnoses Not on filedocumented in this encounter Additional Health Concerns Assessment Noted Time PHQ-9 Depression Total Score: 3 03/03/20 24 11:33 AM EDT documented as of this encounter Care Teams Supervisor Drying Relationship Specialty Start Date End Date Princess Min FNP [address] [place] [address] PCP - General Family Medicine 02/10/24 Cherelle Roy Fire Chief'S AideResidential Assistant 01/24/25 Christine Villaseñor Fire Chief'S AideResidential Assistant 04/30/25 documented as of this encounter
--- OUTSIDE RECORDS SUMMARY | 2025-05-07 11:42 | XMS_ITS | Encounter Summary ---
Author Organization [employer] Address [address] [facility] 7[address] [place] [address] Care Team Providers Care Shipping And Receiving Assistant Name Role Phone Princess Min MANAGER OF TRAINING AND DEVELOPMENT Primary Care Provider Reason for Visit * Reason Comments Med Refill Encounter Details Date Type Department Care Team ([facility] st Contact Info) Description 07/17/2024 Refill [facility] CHC MED & PEDS [address] [place], [place] [phone] Princess Min FNP [address] [place], [place] [phone] Acute otitis externa of left ear, unspecified [...] Description 05/21/2025 11:30 AM EDT Office Visit [facility] OPTOMETRY [address] [place] [address] FransicoGertrudis gallegos, OD [address] [place] [address] documented as of this encounter Visit Diagnoses Diagnosis Acute otitis externa of left ear, unspecified type Intermittent diarrhea documented in this encounter Additional Health Concerns Assessment Noted Time PHQ-9 Depression Total Score: 3 03/03/20 24 11:33 AM EDT documented as of this encounter Care Teams Shipping And Receiving Assistant Relationship Specialty Start Date End Date Princess Min FNP [address] [place] [address] PCP - General Family Medicine 02/10/24 Cherelle Roy Therapeutic Recreation AssistantBenefits Advisor 01/24/25 Christine Villaseñor Therapeutic Recreation AssistantBenefits Advisor 04/30/25 documented as of this encounter
[2025-05-07 14:34] LABS: Hemoglobin A1C 272.6885 umol/L; Total Hemoglobin (HGBA1C) 3532.5003 umol/L
== END 2025-05-07 11:37 | disposition home or self-care (01) ==
LOC: HO.CHCLDS 11:36
PROVIDERS: Visit Provider Registered Nurse
DX: E11.9 Type 2 diabetes mellitus without complications (principal); Z79.4 Long term (current) use of insulin
CPT/HCPCS: 36415; 83036

== ENCOUNTER 2025-05-20 13:46 | Emergency (ER) | payer MEDICAID, SELFPAY ==
--- OUTSIDE RECORDS SUMMARY | 2024-06-26 07:00 | XMS_ITS ---
Author Organization [facility] Address [address] [place] [address] Care Team Providers Care Log Check Scaler Name Role Phone CHARLES LARIOS, OMERO Primary Care Provider Naun Silva Jr, Aidan Otero REASON FOR VISIT screening colonoscopy Encounters Encounter Location Date Provider Diagnosis [facility] [address] [place] [address] [place] [address] 06/26/2024 Aidan Silva Jr Plan Of Treatment No Information Progress Notes * OREN CABALLEROLDOB:1965 (59 yo F)Acc No.[id number]:06/26/2024 Progress Notes Patient: NIELS ZELAYA Provider: Carmen Silva MD :1965 A ge:58 Y S ex:Female Date:06/26/2024 Address:[address], [id number] Pcp:OMERO SOTO MD Subjective: * Chief Complaints: [...] Silva MD Date: 08/27/2023 Generated for Santosh zhao/Miles/Leolaitting on: 03:42 PM EDT
--- NOTE | ~2025-05-20 | XR_ITS ---
CLINICAL HISTORY: fall,. pain 4 view left knee Comparison: DX/[place]/SR - XR KNEE 3 VIEWS LEFT - 09/21/24 09:31 EST Findings: Total arthroplasty and patellar resurfacing with intact hardware. Redemonstration of multifocal areas of decreased subtle lucencies adjacent to the femoral and tibial components of the prosthesis with no significant worsening or progression. No acute fracture or dislocation. No joint effusion. IMPRESSION: 1. No acute fracture, dislocation or significant joint effusion. 2. No acute hardware complications. This document has been electronically signed by: Sanjuana Haider DO on 05/20/2025 16:26:44
--- NOTE | ~2025-05-20 | XR_ITS ---
CLINICAL HISTORY: fall, pain 3 view, pelvis and left hip Comparison: CR/SR - XR PELVIS 1-2V - 04/18/24 13:28 EDT Findings: The bones are intact. Mild degenerative changes in the bilateral hips. The soft tissues are unremarkable. IMPRESSION: No acute fracture or dislocation. This document has been electronically signed by: Sanjuana Haider DO on 05/20/2025 16:25:58
--- NOTE | 2025-05-20 13:53 | ED.GENADULT ---
HPI - General Adult General Chief complaint: Fall Stated complaint: [facility] sent here for Xrays of Hip Time Seen by Provider: 05/20/25 15:26 Source: patient, family and chain mender Mode of arrival: ambulatory Limitations: language barrier History of Present Illness ED Provider: Cynthia Sandoval APRN HPI narrative: 59 yo female with PMH of DM, asthma, migraines, depression, anxiety here with left knee and hip pain. Had a slip and fall hitting left knee on Wednesday with subsequent pain in left hip as well. Able to ambulate. No associated weakness, numbness, tingling of the extremity. Saw her PCP Wednesday and given order for x-ray, came here mistakenly. Related Data Home Medications ?Medication ?Instructions ?Recorded ?Confirmed bupropion HCl 300 mg 24 hr tablet, 300 mg PO QAM 05/16/20 10/18/24 extended release (Wellbutrin XL) furosemide 20 mg tablet (Lasix) 20 mg PO DAILY 05/16/20 10/18/24 levothyroxine 150 mcg tablet 150 mcg PO MOTUWETHFRSA@0600 05/16/20 10/18/24 montelukast 10 mg tablet 10 mg PO QPM 05/16/20 10/18/24 (Singulair) insulin glargine 100 unit/mL (3 30 unit subcut BEDTIME 11/05/22 10/18/24 mL) subcutaneous pen (Lantus Solostar U-100 Insulin) irbesartan 300 mg tablet 300 mg PO DAILY 11/05/22 10/18/24 lancets 33 gauge (TRUEplus Lancets) #100 ea 11/05/22 11/05/22 pen needle, diabetic 32 gauge x #50 ea 11/05/22 11/05/22 5/32 (Pentips Pen Needle) lidocaine 5 % topical patch 1 patch topical DAILY PRN Pain 05/28/23 10/18/24 (Lidoderm) pantoprazole 20 mg tablet,delayed 20 mg PO QAM 05/28/23 10/18/24 release amitriptyline 50 mg tablet 50 mg PO BEDTIME 03/09/24 10/18/24 carvedilol 3.125 mg tablet 3.125 mg PO BEDTIME 03/09/24 10/18/24 clonazepam 0.5 mg tablet 0.5 mg PO TID PRN Anxiety 03/09/24 10/18/24 cyanocobalamin (vitamin B-12) 1,000 mcg PO DAILY 03/09/24 10/18/24 1,000 mcg tablet dulaglutide 3 mg/0.5 mL 3 mg subcut QWEEK 03/09/24 10/18/24 subcutaneous pen injector (Trulicity) melatonin 5 mg tablet 10 mg PO BEDTIME PRN Insomnia 03/09/24 09/05/24 naloxone 4 mg/actuation nasal spray 1 spray intranasal DAILY PRN 03/09/24 09/05/24 Opiate Reversal topiramate 200 mg tablet 200 mg PO BEDTIME 03/09/24 10/18/24 albuterol sulfate 2.5 mg/3 mL 2.5 mg inhalation Q4-6H PRN 09/04/24 10/18/24 (0.083 %) solution for nebulization Shortness Of Breath Or Wheezing albuterol sulfate 90 mcg/actuation 2 puff inhalation BID Shortness Of 09/04/24 10/18/24 aerosol inhaler (Ventolin HFA) Breath Or Wheezing aspirin 325 mg tablet 325 mg PO DAILY 09/04/24 09/05/24 Previous Rx's ?Medication ?Instructions ?Recorded blood-glucose meter (FreeStyle #1 ea 11/18/23 Lite Meter kit) diclofenac sodium 1 % topical gel 2 g topical QID #100 grams 12/14/23 (Voltaren Arthritis Pain) cane #1 ea 12/24/23 walker #1 ea 07/05/24 fluticasone furoate 100 1 inh inhalation DAILY #60 ea 10/18/24 mcg-vilanterol 25 mcg/dose inhalation powder (Breo Ellipta) fluticasone furoate 200 1 inh inhalation DAILY #60 ea 12/15/24 mcg-vilanterol 25 mcg/dose inhalation powder (Breo Ellipta) Allergies Allergy/AdvReac Type Severity Reaction Status Date / Time cortisone (CORTISONE) Allergy Intermediate ELEVATES Verified 05/20/25 13:58 BLOOD SUGAR ibuprofen (IBUPROFEN) Allergy Intermediate GI UPSET, Verified 05/20/25 13:58 stomach upset mayonnaise (MAYONNAISE) Allergy Mild RASH Verified 05/20/25 13:58 naproxen (NAPROXEN) AdvReac Intermediate STOMACH Verified 05/20/25 13:58 UPSET Vicodin Allergy Unknown palpitation Uncoded 04/18/25 15:41 s,hypertens ion Cortisone AdvReac Unknown hyperglycem Uncoded 04/18/25 15:41 ia Review of Systems Review of Systems: Yes all other systems are reviewed and are negative Constitutional: Constitutional: Reports no additional constitutional complaints, Denies body ache(s), Denies chills, Denies fever(s), Denies headache(s) and Denies weakness Eyes: Eyes: Reports no additional eye complaints and Denies change in vision ENT: Reports system reviewed and no additional complaints, except as documented, Denies dizziness, Denies headache(s), Denies nasal congestion, Denies nasal discharge and Denies neck pain Cardiovascular: Cardiovascular: Reports no additional cardiovascular complaints, Denies chest pain, Denies leg edema and Denies dyspnea Respiratory: Respiratory: Reports no additional respiratory complaints, Denies cough and Denies dyspnea Gastrointestinal: Gastrointestinal: Reports no additional gastrointestinal complaints, Denies abdominal pain, Denies diarrhea, Denies nausea and Denies vomiting Genitourinary: Genitourinary: Reports no additional female genitourinary complaints and Denies urinary incontinence Musculoskeletal: Musculoskeletal: Reports no additional musculoskeletal complaints, Denies back pain, Reports arthralgias, Reports joint swelling, Denies limited range of motion, Denies neck pain, Denies numbness and Denies tingling Integumentary/Breasts: Skin/Breast: Reports system reviewed and no additional complaints, except as docu and Denies rash Neurologic: Reports system reviewed and no additional complaints, except as documented, Denies Abnormal speech present, Denies dizziness, Denies headache(s), Denies numbness, Denies tingling and Denies weakness PENDING SALE TO [facility] Past Medical History Attestation statement: The following information was validated with the patient. Source: old records reviewed and nursing notes reviewed Medical History Back pain Arthritis Anemia GERD (gastroesophageal reflux disease) History of headache Osteoarthritis of knees, bilateral Depression Asthma High cholesterol Hypothyroidism Type 2 diabetes mellitus Bilateral carpal tunnel syndrome Fibromyalgia Chronic diarrhea Drug induced constipation Surgical History History of total left knee replacement History of total right knee replacement (TKR) Hx of bilateral cataract extraction History of esophagogastroduodenoscopy (EGD) H/O colonoscopy Hx of hand surgery History of cholecystectomy (~2011) S/p bilateral carpal tunnel release (~2003) Hx of laparoscopic adjustable gastric banding (~2009) History of removal of laparoscopic gastric banding device (~10/2012) H/O: hysterectomy (~10/2012) Family History Family History Mother No problems noted. Father Cancer Sister Breast cancer Social History Social History Household Members: Family Household Members Other:: sister Housing: House Are you a primary day care home mother to a significant other at home: No Do you presently have visiting nurse or other home services: Yes ([employer]) Alcohol intake: current Alcohol intake frequency: holidays/special occasions only Comment: COUNTS CORRECT Patient Tobacco Use Status: Current everyday Tobacco user Tobacco use type: Cigarette Cigarettes Per Day: 3 Years Smoked: 47 Advance Directives: No Advance Directives Information Provided: No service: No Current occupational status: disabled Physical Exam ED Vital Signs: Vital Signs - 24 hr 05/20/25 13:54 05/20/25 15:53 Temperature 97.3 F 97.3 F Pulse Rate 80 80 Respiratory Rate 18 18 Blood Pressure 167/72 H 167/72 H Pulse Oximetry 97 97 Oxygen Delivery Method Room Air Room Air BMI result Body Mass Index 45.6 Const General: cooperative, healthy appearing, comfortable and no acute distress Orientation/consciousness: patient oriented x3 Limitations: no limitations HENNE Head: Yes normal to inspection Ears: hearing grossly normal bilaterally General nose exam: Normal external nose present Face and sinus: Yes normal facial exam Mouth: Normal oral and palatal mucosa present Throat: Yes posterior oropharynx normal Eyes General: appearance normal, both eyes and all related structures Pupils: Equal, round and reactive pupils present Neck Neck: Yes normal visual inspection Chest Chest palpation & inspection: normal inspection of the chest Resp Effort & Inspection: normal respiratory effort Auscultation: clear to auscultation bilaterally Cardio Rate: regular rate Rhythm: regular rhythm Peripheral pulses: Peripheral pulses 2+ throughout GI Inspection: Yes normal to inspection Palpation (GI): Soft to palpation and nontender Auscultation: normal bowel sounds Back/Spine/Pelvis Thoracic/Lumbar Spine: thoracic and lumbar spine normal to inspection Skin General skin exam: no rashes or lesions noted Neuro General: patient oriented x3, no focal motor deficits and normal sensation to monofilament Cranial nerves: Yes Equal, round and reactive pupils present Cognition (Neuro): normal cognition Speech: No Abnormal speech present Gait exam (Neuro): Normal gait present Motor exam (neuro): 5/5 motor strength present throughout Extrem Other: I do not appreciate any swelling, redness, warmth of the left knee. There is full active and passive ROM. CMS intact distally. I do not appreciate any shortnening, rotation or deformity of the left hip. There is full active and passive ROM. CMS intact distally. General: Yes normal to inspection Course Course Course Narrative: Cynthia Monsalvecarrillokannan CERTIFIED ART THERAPIST 05/20 1355 This is a rapid medical exam. Deferred additional HPI, ROS, PE to primary provider. 59 yo female with PMH of DM, asthma, migraines, depression, anxiety here with left knee and hip pain. Here with slip and fall hitting left knee on Wednesday with subsequent pain in left hip as well. After further investigation patient had outpatient x-ray orders and she accidentally signed in as an ER patient. X-rays ordered VSS Reevaluation(s) Reevaluation #1: The patient want to leave before the x-ray results came back. She will follow up with her primary care doctor in regards to the results Medical Decision Making Medical Decision Making MDM Narrative: 59 yo female with PMH of DM, asthma, migraines, depression, anxiety here with left knee and hip pain. Had a slip and fall hitting left knee on Wednesday with subsequent pain in left hip as well. Able to ambulate. No associated weakness, numbness, tingling of the extremity. Saw her PCP Wednesday and given order for x-ray, came here mistakenly. I do not appreciate any swelling, redness, warmth of the left knee. There is full active and passive ROM. CMS intact distally. I do not appreciate any shortnening, rotation or deformity of the left hip. There is full active and passive ROM. CMS intact distally. Will check x-rays Differential Diagnosis Differential Diagnoses: The differential diagnosis associated with the presentation includes contusion, sprain, strain Less likely fracture, dislocation Admission/Observation Consideration of admission/observation: Escalation of care including admission/observation considered Independent Interpretation I performed an independent interpretation of an: Plain X-Ray Interpretation: I independently viewed the x-ray and agree with the radiology report Radiology Impression Discussion of test interpretation with radiology: I have reviewed the radiologist's reading. Radiologist Impression: [address] [address] XRay Report Signed Patient: Argelia Messina MR#: [id number] : 1965 Acct:[id number] Age/Sex: 59 / F ADM Date: 05/20/25 Loc: HO.ED Attending Dr: Ordering Physician: Cynthia Sandoval NP Date of Service: 05/20/25 Procedure(s): XR knee LT 3V Accession Number(s): [id number] cc: Cynthia Sandoval NP; Princess Min SCALLOP SHUCKER~ Reason for Exam: fall,. pain CLINICAL HISTORY: fall,. pain 4 view left knee Comparison: DX/FL/SR - XR KNEE 3 VIEWS LEFT - 09/21/24 09:31 EST Findings: Total arthroplasty and patellar resurfacing with intact hardware. Redemonstration of multifocal areas of decreased subtle lucencies adjacent to the femoral and tibial components of the prosthesis with no significant worsening or progression. No acute fracture or dislocation. No joint effusion. IMPRESSION: 1. No acute fracture, dislocation or significant joint effusion. 2. No acute hardware complications. This document has been electronically signed by: Sanjuana Haider DO on 05/20/2025 16:26:[address] [address] XRay Report Signed Patient: Argelia Messina MR#: [id number] : 1965 Acct:[id number] Age/Sex: 59 / F ADM Date: 05/20/25 Loc: HO.ED Attending Dr: Ordering Physician: Cynthia Sandoval NP Date of Service: 05/20/25 Procedure(s): XR hip LT min 2V Accession Number(s): [id number] cc: Cynthia Sandoval NP; Princess Min SCALLOP SHUCKER~ Reason for Exam: fall, pain CLINICAL HISTORY: fall, pain 3 view, pelvis and left hip Comparison: CR/SR - XR PELVIS 1-2V - 04/18/24 13:28 EDT Findings: The bones are intact. Mild degenerative changes in the bilateral hips. The soft tissues are unremarkable. IMPRESSION: No acute fracture or dislocation. This document has been electronically signed by: Sanjuana Haider DO on 05/20/2025 16:25:58 Independent Historian Clinical information obtained from an independent historian. History obtained from or confirmed by: Other (niece ) Discharge Plan Discharge Clinical Impression: Contusion of hip, Contusion of knee Patient Disposition: Home, Self-Care Instructions: Contusion in Adults (ED), Hip Contusion (ED) Additional Instructions: Your x-rays are still pending. We will call you if the radiologist finds any bony abnormality. Otherwise you can call your primary care doctor tomorrow to follow-up Prescriptions: No Action (DME) blood-glucose meter [FreeStyle Lite Meter] Kit See Rx Instructions .Route Qty: 1 0RF Rx Instructions: As directed checks 4 X/day (DME) walker Misc See Rx Instructions .MEDSUPPLY Qty: 1 0RF Rx Instructions: Folding Front wheeled walker \duration 99 days lidocaine [Lidoderm] 5 % adhesive patch,medicated 1 patch topical DAILY PRN (Reason: Pain) Protocol: Apply to: Apply to: knees Rx Instructions: leave on most painful area for up to 12 hrs pantoprazole 20 mg tablet,delayed release (DR/EC) 20 mg PO QAM diclofenac sodium [Voltaren Arthritis Pain] 1 % gel 2 g topical QID Qty: 100 0RF Rx Instructions: apply to single elbow, wrist or hand; for hand includes palm/fingers/back of hand albuterol sulfate [Ventolin HFA] 90 mcg/actuation HFA aerosol inhaler 2 puff INHALATION BID albuterol sulfate 2.5 mg /3 mL (0.083 %) Solution For Nebulization 2.5 mg INHALATION Q4-6H PRN (Reason: Shortness Of Breath Or Wheezing) aspirin 325 mg tablet 325 mg PO DAILY furosemide [Lasix] 20 mg tablet 20 mg PO DAILY bupropion HCl [Wellbutrin XL] 300 mg tablet extended release 24 hr 300 mg PO QAM montelukast [Singulair] 10 mg tablet 10 mg PO QPM levothyroxine 150 mcg tablet 150 mcg PO MOTUWETHFRSA@0600 insulin glargine [Lantus Solostar U-100 Insulin] 100 unit/mL (3 mL) insulin pen 30 unit subcut BEDTIME Patient Comments: only 1/2 dose yesterday (DME) pen needle, diabetic [Pentips Pen Needle] 32 gauge x 5/32 needle See Rx Instructions .ROUTE DIRECTED Qty: 50 Rx Instructions: As directed once a day (DME) lancets [TRUEplus Lancets] 33 gauge misc See Rx Instructions .ROUTE BID Qty: 100 Rx Instructions: As directed irbesartan 300 mg tablet 300 mg PO DAILY melatonin 5 mg tablet 10 mg PO BEDTIME PRN (Reason: Insomnia) amitriptyline 50 mg tablet 50 mg PO BEDTIME cyanocobalamin (vitamin B-12) 1,000 mcg tablet 1,000 mcg PO DAILY clonazepam 0.5 mg tablet 0.5 mg PO TID PRN (Reason: Anxiety) naloxone 4 mg/actuation spray,non-aerosol 1 spray intranasal DAILY PRN (Reason: Opiate Reversal) Trulicity 3 mg/0.5 mL pen injector 3 mg subcut QWEEK Patient Comments: patient takes every Wednesday topiramate 200 mg tablet 200 mg PO BEDTIME carvedilol 3.125 mg tablet 3.125 mg PO BEDTIME fluticasone furoate-vilanterol [Breo Ellipta] 200-25 mcg/dose blister with device 1 inh inhalation DAILY Qty: 60 6RF (DME) cane See Rx Instructions .Route .MEDSUPPLY Qty: 1 0RF Rx Instructions: As directed fluticasone furoate-vilanterol [Breo Ellipta] 100-25 mcg/dose blister with device 1 inh inhalation DAILY Qty: 60 3RF Referrals: Princess Min SCALLOP SHUCKER [Primary Care Provider, Family Practice] Interventions: ED Discharge Assessment Last Done: 05/20/25 15:53 Discharge Date/Time: 05/20/25 15:55 Print Language: Turkmen
[2025-05-20 13:54] VITALS: BP 167/72; PULSE 80; RESP 18; TEMP 36.3; O2SAT 97; BMI 45.6
--- OUTSIDE RECORDS SUMMARY | 2025-05-20 15:43 | XMS_ITS | Patient Health Record ---
Author Organization [facility] Address [address] [place] [address] Care Team Providers Care Histologic Aide Name Role Phone OMERO SOTO MD Primary Care Provider Naun Silva Jr, Aidan Otero Reason For Referral No Information Encounters Encounter Location Date Provider Diagnosis [facility] [address] [place] [address] 06/21/2024 Aidan Silva Jr Plan Of Treatment No Information Insurance Providers Payer Name Payer Address Payer Phone Subscriber Number Group Number Insured Name Patient Relationship to Insured Coverage Start Date Coverage End Date MEDICAID OF [facility] [address] [place] [phone] [id number] NIELS CABALLERO Self - patient is the insured
[2025-05-20 15:53] VITALS: BP 167/72; PULSE 80; RESP 18; TEMP 36.3; O2SAT 97
== END 2025-05-20 15:55 | disposition home or self-care (01) ==
PROVIDERS: Emergency Provider Emergency Medicine Emergency Medical Services; PCP Registered Nurse
DX: S70.02XA Contusion of left hip, initial encounter (principal); S80.02XA Contusion of left knee, initial encounter; M25.562 Pain in left knee; M25.552 Pain in left hip; W01.0XXA Fall on same level from slipping, tripping and stumbling without subsequent striking against object, initial encounter; Y93.01 Activity, walking, marching and hiking; Y92.9 Unspecified place or not applicable; Y99.8 Other external cause status; E11.9 Type 2 diabetes mellitus without complications; Z79.4 Long term (current) use of insulin; Z79.899 Other long term (current) drug therapy; F17.210 Nicotine dependence, cigarettes, uncomplicated
CPT/HCPCS: 73502; 73562; 99282; 99283

== ENCOUNTER → 2025-05-20 13:58 | Outpatient (BNV) | payer MEDICAID, SELFPAY | PROVIDERS: Emergency Provider Emergency Medicine Emergency Medical Services; PCP Registered Nurse; Visit Provider Radiology Diagnostic Radiology | DX: M25.552 Pain in left hip (principal); M25.562 Pain in left knee; W18.39XA Other fall on same level, initial encounter | CPT/HCPCS: 73502; 73562 ==

== ENCOUNTER 2025-06-04 15:07 | Outpatient (AMB) | payer MEDICAID, SELFPAY ==
[2025-06-04 15:10] VITALS: BP 122/62; PULSE 60; BMI 43.9
--- NOTE | 2025-06-04 15:10 | A.OFFVIS_ITS ---
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 Mechanical Maintenance Required: Yes Manager Mechanical Maintenance Name: KARLEY [id number] Allergies cortisone (CORTISONE) Allergy (Intermediate, Verified 05/20/25 13:58) ELEVATES BLOOD SUGAR ibuprofen (IBUPROFEN) Allergy (Intermediate, Verified 05/20/25 13:58) GI UPSET, stomach upset mayonnaise (MAYONNAISE) Allergy (Mild, Verified 05/20/25 13:58) RASH naproxen (NAPROXEN) Adverse Reaction (Intermediate, Verified 05/20/25 13:58) STOMACH UPSET Vicodin Allergy (Unknown, Uncoded 04/18/25 15:41) palpitations,hypertension Cortisone Adverse Reaction (Unknown, Uncoded 04/18/25 15:41) hyperglycemia Medication List - Last Reconciled 06/04/25 by Mustapha Britton MD albuterol sulfate 90 mcg/actuation (Ventolin HFA) 2 puffs inhalation BID albuterol sulfate 2.5 mg inhalation Q4-6H PRN amitriptyline 50 mg PO BEDTIME blood-glucose meter (FreeStyle Lite Meter kit) As directed checks 4 X/day bupropion HCl XL (Wellbutrin XL) 300 mg PO QAM [cane As directed] carvedilol 3.125 mg PO BEDTIME clonazepam 0.5 mg PO TID PRN cyanocobalamin (vitamin B-12) 1,000 mcg PO DAILY diclofenac sodium 1% (Voltaren Arthritis Pain) 2 grams topical QID fluticasone furoate-vilanterol 200-25 mcg/dose (Breo Ellipta) 1 inh inhalation DAILY furosemide (Lasix) 20 mg PO DAILY insulin glargine (Lantus Solostar U-100 Insulin) 30 units subcut BEDTIME irbesartan 300 mg PO DAILY lancets (TRUEplus Lancets) As directed levothyroxine 150 mcg PO MOTUWETHFRSA@0600 lidocaine 5% (Lidoderm) 1 patch See Protocol topical DAILY PRN melatonin 10 mg PO BEDTIME PRN montelukast (Singulair) 10 mg PO QPM naloxone 4 mg/actuation 1 spray intranasal DAILY PRN pantoprazole 20 mg PO QAM pen needle, diabetic (Pentips Pen Needle) As directed once a day topiramate 200 mg PO BEDTIME walker Folding Front wheeled walker \duration 99 days HPI Comments Details: Argelia has been referred for cardiac evaluation. Previously seen at [facility] but it seems that she was not given any follow-up appointments because of no shows. Stated congestive heart failure although patient does not have any clear-cut details of this. She denies any history of coronary disease or myocardial infarction or cardiomyopathy. Morbidly obese. Smoker. With activity, she states she gets short of breath. She also gets chest pressure type episodes when she gets asthma attacks. [facility] Medical History (Updated 06/04/25 @ 15:31 by Mustapha Britton MD) CHF (congestive heart failure) Back pain Arthritis Anemia GERD (gastroesophageal reflux disease) History of headache Osteoarthritis of knees, bilateral Depression Asthma High cholesterol Hypothyroidism Type 2 diabetes mellitus Bilateral carpal tunnel syndrome Fibromyalgia Chronic diarrhea Drug induced constipation Surgical History History of total left knee replacement History of total right knee replacement (TKR) Hx of bilateral cataract extraction History of esophagogastroduodenoscopy (EGD) H/O colonoscopy Hx of hand surgery History of cholecystectomy (~2011) S/p bilateral carpal tunnel release (~2003) Hx of laparoscopic adjustable gastric banding (~2009) History of removal of laparoscopic gastric banding device (~10/2012) H/O: hysterectomy (~10/2012) Family History Mother No problems noted. 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) Alcohol intake: current Alcohol intake frequency: holidays/special occasions only Comment: COUNTS CORRECT Patient Tobacco Use Status: Current everyday Tobacco user Tobacco use type: Cigarette Cigarettes Per Day: 3 Years Smoked: 47 service: No Current occupational status: disabled Review of Systems Const Denies weakness ENT Denies dizziness Card Reports chest pain, Reports chest pain with activity, Denies syncope, Denies rapid heart rate, Denies pedal edema, Denies edema, Denies leg edema, Denies lightheadedness, Denies palpitations, Denies dyspnea, Denies dyspnea on exertion and Denies orthopnea Resp Denies cough, Denies dyspnea and Denies dyspnea on exertion GI Denies hematochezia and Denies change in stool character Musc Denies abnormal gait, Denies muscle cramps, Denies muscle weakness, Denies numbness, Denies radiating pain into limb and Denies tingling Neuro Denies abnormal gait, Denies dizziness, Denies syncope, Denies numbness, Denies tingling and Denies weakness Endo Denies palpitations Physical Exam Vital Signs: Last Vital Signs Pulse 60 06/04/25 15:10 BP 122/62 06/04/25 15:10 BMI result Body Mass Index 43.9 Const General: comfortable and no acute distress Orientation/consciousness: patient oriented x3 HEENT Other: Unremarkable Head: Yes normal to inspection Neck Neck: Yes normal visual inspection Chest Chest palpation & inspection: normal inspection of the chest Resp Auscultation: clear to auscultation bilaterally Cardio Palpation: normal PMI Heart sounds: S1 normal heart sound present, S2 normal heart sound present, no gallops, no murmurs and no rubs GI Palpation (GI): Soft to palpation Back/Spine/Pelvis Other: unremarkable Skin General skin exam: no rashes or lesions noted Neuro General: patient oriented x3 Extrem General: Yes normal to inspection Psych Mental Status: mental status grossly normal Office Procedures EKG Details: EKG with underlying artifact. Normal sinus rhythm at 60/Min. Nonspecific ST-[place] [address]-[id number], Complete Assessment & Plan Assessment & Plan (1) CHF (congestive heart failure): Code(s): I50.9 - Heart failure, unspecified Category: Medical Plan We will need an echocardiogram for further assessment. With her comorbidities, diastolic heart failure certainly possible. Clinically, no overt volume overload. Per current meds, listed to be on Lasix. Not entirely clear about accuracy of other medications. No changes made today. We will start with an echocardiogram. Based on the findings as well as degree of compliance, we will plan on further workup accordingly. May need coronary CTA considering risk factors. Follow up after echocardiogram. Discussed using production line technician. Discussion Notes I discussed with the patient the importance of evaluating her heart to ensure there are no underlying cardiac issues contributing to her symptoms. We agreed to start with an echocardiogram and proceed based on the findings. I also advised her on the benefits of smoking cessation for her respiratory health. Patient was informed and verbally consented to the use of an ambient scribe for clinic note documentation during this visit. Orders: Orders CA echo transthoracic complete Today I50.9 - Heart failure, unspecified Patient Instructions: - Undergo the scheduled echocardiogram to assess heart function. - Consider quitting smoking to improve lung health and reduce asthma symptoms. - Monitor for any worsening of symptoms and report to the healthcare provider. Coding Level of Care Code New Pt Level 4 (65662) Complex EM visit Add On G2211 Diagnoses CHF (congestive heart failure) I50.9 CPT Codes EKG - CPT: 29093-[id number], Complete ([id number])
--- OUTSIDE RECORDS SUMMARY | 2025-06-04 17:17 | XMS_ITS | Encounter Summary ---
Author Organization [employer] Address [address] [facility] 7t [place] [address] Care Team Providers Care Cover Operator Name Role Phone Princess Min Primary Care Provider [phone] Princess Min Primary Care Provider [phone] Princess Min Primary Care Provider [phone] Reason for Visit * Reason Onset Date Comments PT1 11/20/2022 Encounter Details Date Type Department Care Team (Late st Contact Info) Description 11/20/2022 Telephone [facility] [address] [place] [address] Princess Min FNP [address] [place], [place] [phone] PT1 Social History Tobacco Use Types Packs/Day [...] / denial letter via mail. 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: Yes (Adult) For all future appts documented in this encounter Plan of Treatment Upcoming Encounters Date Type Department Care Team (Late st Contact Info) Description 07/05/2025 1:30 PM EST Medication Management [facility] [address] [place] [address] Yee Bella, PharmD [address] [place] [address] documented as of this encounter Visit Diagnoses Not on filedocumented in this encounter Additional Health Concerns Assessment Noted Time PHQ-9 Depression Total Score: 24 023 9:25 AM EDT documented as of this encounter Care Teams Cover Operator Relationship Specialty Start Date End Date Princess Min FNP [address] [place] [address] PCP - General Family Medicine 03/20/22 12/26/23 Princess Min FNP [address] [place] [address] PCP - General Family Medicine 01/21/24 02/03/24 Princess Min FNP [address] [place] [address] PCP - General Family Medicine 02/10/24 Cherelle Roy Cryptography TeacherClinical Phlebotomist 01/24/25 Christine Villaseñor Cryptography TeacherClinical Phlebotomist 04/30/25 documented as of this encounter
--- OUTSIDE RECORDS SUMMARY | 2025-06-04 17:17 | XMS_ITS | Encounter Summary ---
Author Organization [employer] Address [address] [facility] 7t [place] [address] Care Team Providers Care Supervisor Hide House Name Role Phone Princess Min Primary Care Provider Reason for Visit * Reason Comments Med Refill Encounter Details Date Type Department Care Team ([facility] st Contact Info) Description 04/25/2024 Refill [facility] [address] [place] [address] Princess Min FNP [address] [place], [place] [phone] Social History Tobacco Use Types Packs/Day Years [...] Description 07/05/2025 1:30 PM EST Medication Management [facility] [address] [place] [address] Yee Bella PharmD [address] [place] [address] documented as of this encounter Visit Diagnoses Not on filedocumented in this encounter Additional Health Concerns Assessment Noted Time PHQ-9 Depression Total Score: 3 03/03/20 24 11:33 AM EDT documented as of this encounter Care Teams Supervisor Hide House Relationship Specialty Start Date End Date Princess Min FNP [address] [place] [address] PCP - General Family Medicine 02/10/24 Cherelle Roy Manager CompanyRn Field 01/24/25 Christine Villaseñor Manager CompanyRn Field 04/30/25 documented as of this encounter
--- OUTSIDE RECORDS SUMMARY | 2025-06-04 17:17 | XMS_ITS | Encounter Summary ---
Author Organization [employer] Address [address] [facility] 7t [place] [address] Care Team Providers Care Surtass Analyst Name Role Phone Princess Min Primary Care Provider [phone] Reason for Visit * Reason Onset Date Comments Med Refill 02/11/2024 Encounter Details Date Type Department Care Team (Late st Contact Info) Description 02/11/2024 Telephone [facility] [address] [place] [address] Princess Min FNP [address] [place], [place] [phone] Med Refill Social History Tobacco Use Types [...] EDT Medication was sent to [facility] on 11/29/23 with 3 refills. * Telephone Encounter - Drake Levy - 02/11/2024 11:57 AM EDT TC from pt requesting medication refill. Medications needing refill : Asmanex HFA 200 MCG/ACT aerosol To be sent to: [facility] - [place], [place] - [address] [facility] documented in this encounter Plan of Treatment Upcoming Encounters Date Type Department Care Team (Late st Contact Info) Description 07/05/2025 1:30 PM EST Medication Management [facility] & PEDS [address] [place] [address] Yee Bella, PharmD [address] [place] [address] documented as of this encounter Visit Diagnoses Not on filedocumented in this encounter Additional Health Concerns Assessment Noted Time PHQ-9 Depression Total Score: 10 023 10:39 AM EDT documented as of this encounter Care Teams Surtass Analyst Relationship Specialty Start Date End Date Princess Min FNP [address] [place] [address] PCP - General Family Medicine 02/10/24 Cherelle Roy System Support TechnicianMaintenance Mechanic Supervisor 01/24/25 Christine Villaseñor System Support TechnicianMaintenance Mechanic Supervisor 04/30/25 documented as of this encounter
--- OUTSIDE RECORDS SUMMARY | 2025-06-04 17:17 | XMS_ITS | Encounter Summary ---
Author Organization [employer] Address [address] [facility] 7t [place] [address] Care Team Providers Care White Sugar Boiler Name Role Phone Princess Min Primary Care Provider [phone] Princess Min Primary Care Provider [phone] Princess Min Primary Care Provider [phone] Reason for Visit * Reason Onset Date Comments Triage 10/19/2022 Encounter Details Date Type Department Care Team ([facility] st Contact Info) Description 10/19/2022 Telephone [facility] [address] [place] [address] Princess Min FNP [address] [place], [place] [phone] Triage Social History Tobacco Use Types Packs/Day [...] EDT Triage call returned to patient via [employer] liner replacer [id number]. Patient reports only mild wheezing using albuterol [...] accepted this outcome Please contact pt at [phone] [place] speaker documented in this encounter Plan of Treatment Upcoming Encounters Date Type Department Care Team ([facility] st Contact Info) Description 07/05/2025 1:30 PM EST Medication Management [facility] [address] [place] [address] Yee eBlla PharmD [address] [place] [address] documented as of this encounter Visit Diagnoses Not on filedocumented in this encounter Care Teams White Sugar Boiler Relationship Specialty Start Date End Date Princess Min FNP [address] [place] [address] PCP - General Family Medicine 03/20/22 12/26/23 Princess Min FNP [address] [place] [address] PCP - General Family Medicine 01/21/24 02/03/24 Princess Min FNP [address] [place] [address] PCP - General Family Medicine 02/10/24 Cherelle Roy Floor Covering InstallerFire Warden 01/24/25 Christine Villaseñor Floor Covering InstallerFire Warden 04/30/25 documented as of this encounter
--- OUTSIDE RECORDS SUMMARY | 2025-06-04 17:17 | XMS_ITS | Encounter Summary ---
Author Organization [employer] Address [address] [facility] 7t [place] [address] Care Team Providers Care Librarian Helper Name Role Phone Princess Min Primary Care Provider [phone] Princess Min Primary Care Provider [phone] Princess Min Primary Care Provider [phone] Reason for Visit * Reason Comments Med Refill Encounter Details Date Type Department Care Team ([facility] st Contact Info) Description 06/14/2023 Refill [facility] [address] [place] [address] Princess Min FNP [address] [place], [place] [phone] Social History Tobacco Use Types Packs/Day Years [...] 07/05/2025 1:30 PM EST Medication Management [facility] P[facility]S [address] [place] [address] Yee Bella, PharmD [address] [place], [place] [phone] documented as of this encounter Visit Diagnoses Not on filedocumented in this encounter Additional Health Concerns Assessment Noted Time PHQ-9 Depression Total Score: 10 023 10:39 AM EDT documented as of this encounter Care Teams Librarian Helper Relationship Specialty Start Date End Date Princess Min FNP [address] [place] [address] PCP - General Family Medicine 03/20/22 12/26/23 Princess Min FNP [address] [place] [address] PCP - General Family Medicine 01/21/24 02/03/24 Princess Min FNP [address] [place] [address] PCP - General Family Medicine 02/10/24 Cherelle Roy CoderNight Club Manager 01/24/25 Christine Villaseñor CoderNight Club Manager 04/30/25 documented as of this encounter
--- OUTSIDE RECORDS SUMMARY | 2025-06-04 17:17 | XMS_ITS | Encounter Summary ---
Author Organization [email or web address] Address [address] [facility] 7t [place] [address] Care Team Providers Care Reheater Helper Name Role Phone Princess Min Primary Care Provider Princess Min Primary Care Provider [phone] Reason for Visit * Reason Comments Med Refill Encounter Details Date Type Department Care Team ([facility] st Contact Info) Description 02/03/2024 Refill [facility] [address] [place] [address] Princess Min FNP [address] [place], [place] [phone] Hypothyroidism, unspecified type Social History Tobacco Use [...] Description 07/05/2025 1:30 PM EST Medication Management [facility] PEDS [address] [place] [address] Yee Bella PharmD [address] [place] [address] documented as of this encounter Visit Diagnoses Diagnosis Hypothyroidism, unspecified type documented in this encounter Additional Health Concerns Assessment Noted Time PHQ-9 Depression Total Score: 10 023 10:39 AM EDT documented as of this encounter Care Teams Reheater Helper Relationship Specialty Start Date End Date Princess Min FNP [address] [place] [address] PCP - General Family Medicine 01/21/24 02/03/24 Princess Min FNP [address] [place] [address] PCP - General Family Medicine 02/10/24 Cherelle Roy Marketing Campaign AnalystCentral Office Maintainer 01/24/25 Christine Villaseñor Marketing Campaign AnalystCentral Office Maintainer 04/30/25 documented as of this encounter
--- OUTSIDE RECORDS SUMMARY | 2025-06-04 17:17 | XMS_ITS | Encounter Summary ---
Author Organization [employer] Address [address] [facility] 7t [place] [address] Care Team Providers Care Retail Tire Sales Manager Name Role Phone Princess Min Primary Care Provider [phone] Princess Min Primary Care Provider [phone] Princess Min Primary Care Provider [phone] Reason for Visit * Reason Onset Date Comments Durable Medical Equipment 11/19/2022 Encounter Details Date Type Department Care Team (Late st Contact Info) Description 11/19/[address] [facility] [address] [place] [address] Princess Min FNP [address] [place], [place] [phone] Durable Medical Equipment Social History Tobacco Use [...] before I couldprovide a referral number to [facility] to process DME. Patient understood and agreed with plan. * Telephone Encounter - Miracle Dickens - 12/08/2022 4:32 PM EDT Tc from pt regarding message below. Pt states [facility] is requesting a PA If any questions please contact pt at [phone] * Telephone Encounter - Barbie Montanez - 12/08/2022 12:34 PM EDT Scripts received from provider and faxed to [facility] as requested. Patient notified. * Telephone Encounter - Dean Alvarado - 12/08/2022 12:06 PM EDT Tc from pt requesting status update on script for commode and shower chair, states would like script to sent to [facility]. Please contact at [phone] * Telephone Encounter - Barbie Montanez - 11/19/2022 3:16 PM EDT Scripts for shower chair and commode generated for signature * Telephone Encounter - Jareth Cifuentes - 11/19/2022 2:55 PM EDT Tc from pt requesting a script for a commode also a script for a shower chair. To be faxed to [facility] Please contact pt at [phone] documented in this encounter Plan of Treatment Upcoming Encounters Date Type Department Care Team (Late st Contact Info) Description 07/05/2025 1:30 PM EST Medication Management [facility] MED & PEDS [address] [place] [address] Yee Bella, GregD [address] [place] [address] documented as of this encounter Visit Diagnoses Not on filedocumented in this encounter Additional Health Concerns Assessment Noted Time PHQ-9 Depression Total Score: 023 9:25 AM EDT documented as of this encounter Care Teams Retail Tire Sales Manager Relationship Specialty Start Date End Date Princess Min FNP [address] [place] [address] PCP - General Family Medicine 03/20/22 12/26/23 Princess Min FNP [address] [place] [address] PCP - General Family Medicine 01/21/24 02/03/24 Princess Min FNP [address] [place] [address] PCP - General Family Medicine 02/10/24 Cherelle Roy Slab InstallerRecruiting Scheduler 01/24/25 Christine Villaseñor Slab InstallerRecruiting Scheduler 04/30/25 documented as of this encounter
--- OUTSIDE RECORDS SUMMARY | 2025-06-04 17:17 | XMS_ITS | Encounter Summary ---
Author Organization [employer] Address [address] [facility] 7t [place] [address] Care Team Providers Care Global Clinical Leader Name Role Phone Mechelle Princess VP TALENT MANAGEMENT Primary Care Provider [phone] Encounter Details Date Type Department Care Team ([facility] st Contact Info) Description 01/22/2025 Refill [facility] [address] [place], [place] [phone] Princess Min FNP [address] [place], [place] [phone] Social History Tobacco Use Types Packs/Day Years [...] 07/05/2025 1:30 PM EST Medication Management [facility] & PEDS [address] [place] [address] Yee Bella PharmD 230 [place] [address] documented as of this encounter Visit Diagnoses Not on filedocumented in this encounter Additional Health Concerns Assessment Noted Time PHQ-9 Depression Total Score: 3 03/03/20 24 11:33 AM EDT documented as of this encounter Care Teams Global Clinical Leader Relationship Specialty Start Date End Date Princess Min FNP [address] [place] [address] PCP - General Family Medicine 02/10/24 Cherelle Roy Assembly OperatorBell Spinner Sousaphones 01/24/25 Christine Villaseñor Assembly OperatorBell Spinner Sousaphones 04/30/25 documented as of this encounter
--- OUTSIDE RECORDS SUMMARY | 2025-06-04 17:17 | XMS_ITS | Encounter Summary ---
Author Organization [employer] Address [address] [facility] 7t [place] [address] Care Team Providers Care Gin Operator Name Role Phone Princess Min Primary Care Provider [phone] Princess Min Primary Care Provider [phone] Encounter Details Date Type Department Care Team (Late st Contact Info) Description 12/28/2023 Telephone [facility] MEDICINE [address] [place] [address] Princess Min FNP [address] [place], [place] [phone] Social History Tobacco Use Types Packs/Day Years [...] t he electric, gas, oil or water Solvesting threatened to shut off services in your [...] 07/05/2025 1:30 PM EST Medication Management [facility] PEDS [address] [place] [address] Yee Bella PharmD [address] [place] [address] documented as of this encounter Visit Diagnoses Not on filedocumented in this encounter Additional Health Concerns Assessment Noted Time PHQ-9 Depression Total Score: 10 023 10:39 AM EDT documented as of this encounter Care Teams Gin Operator Relationship Specialty Start Date End Date Princess Min FNP [address] [place] [address] PCP - General Family Medicine 01/21/24 02/03/24 Princess Min FNP [address] [place] [address] PCP - General Family Medicine 02/10/24 Cherelle Roy Freezer AssistantPatrol Sergeant 01/24/25 Christine Villaseñor Freezer AssistantPatrol Sergeant 04/30/25 documented as of this encounter
--- OUTSIDE RECORDS SUMMARY | 2025-06-04 17:17 | XMS_ITS | Encounter Summary ---
Author Organization [employer] Address [address] [facility] [address] [place] [address] Care Team Providers Care Parole Supervisor Name Role Phone Princess Min Primary Care Provider [phone] Princess Min Primary Care Provider [phone] Princess Min Primary Care Provider [phone] Reason for Visit * Reason Onset Date Comments Durable Medical Equipment 10/27/2022 Encounter Details Date Type Department Care Team (Late st Contact Info) Description 10/27/[address] [facility] [address] [place] [address] Princess Min FNP [address] [place], [place] [id number] Durable Medical Equipment Social History Tobacco Use [...] for signature * Telephone Encounter - Jareth Esau - 10/27/2022 11:01 AM EDT Tc from pt requesting a script for a bath mat and a script for a cane also requesting a script for a shower head, script to be send to [facility]. documented in this encounter Plan of Treatment Upcoming Encounters Date Type Department Care Team (Late st Contact Info) Description 07/05/2025 1:30 PM EST Medication Management [facility] [address] [place] [address] Yee Bella, PharmD [address] [place] [address] documented as of this encounter Visit Diagnoses Not on filedocumented in this encounter Care Teams Parole Supervisor Relationship Specialty Start Date End Date Princess Min FNP [address] [place] [address] PCP - General Family Medicine 03/20/22 12/26/23 Princess Min FNP [address] [place] [address] PCP - General Family Medicine 01/21/24 02/03/24 Princess Min FNP [address] [place] [address] PCP - General Family Medicine 02/10/24 Cherelle Roy Seaweed HarvesterClinical Leader 01/24/25 Christine Villaseñor Seaweed HarvesterClinical Leader 04/30/25 documented as of this encounter
--- OUTSIDE RECORDS SUMMARY | 2025-06-04 17:17 | XMS_ITS | Encounter Summary ---
Author Organization [employer] Address [address] [place] [address] Care Team Providers Care Field Crop Farming Supervisor Name Role Phone Princess Min Primary Care Provider [phone] Princess Min Primary Care Provider [phone] Reason for Visit * Reason Comments Med Refill Encounter Details Date Type Department Care Team ([facility] st Contact Info) Description 01/02/2024 Refill [facility] [address] [place] [address] Princess Min FNP [address] [place], [place] [id number] Social History Tobacco Use Types Packs/Day Years [...] Description 07/05/2025 1:30 PM EST Medication Management [facility] [address] [place] [address] Yee Bella, PharmD [address] [place] [address] documented as of this encounter Visit Diagnoses Not on filedocumented in this encounter Additional Health Concerns Assessment Noted Time PHQ-9 Depression Total Score: 10 023 10:39 AM EDT documented as of this encounter Care Teams Field Crop Farming Supervisor Relationship Specialty Start Date End Date Princess Min FNP [address] [place] [address] PCP - General Family Medicine 01/21/24 02/03/24 Princess Min FNP [address] [place] [address] PCP - General Family Medicine 02/10/24 Cherelle Roy [employer] 01/24/25 Christine Villaseñor [employer] 04/30/25 documented as of this encounter
--- OUTSIDE RECORDS SUMMARY | 2025-06-04 17:17 | XMS_ITS | Clinical Summary ---
Author Organization [employer] Address [address] [place] [address] Care Team Providers Care Top Knitter Name Role Phone Princess Min FOUNDRY TECHNICIAN Primary Care Provider [phone] Allergies Active Allergy Reactions Criticality Noted Date Comments Cortisone High 04/18/2025 Other Reaction(s): ELEVATES BLOOD SUGAR, hyperglycemia Side Effects Duloxetine Dizziness 07/10/2021 Hydrocodone 05/12/2017 Ibuprofen 11/26/2021 Other Rash Low 05/20/2025 Medications buPROPion XL (Wellbutrin XL) 300 MG 24 hr tablet Take 1 tablet by mouth at bed time. 2021 Active clonazePAM (KlonoPIN) 0.5 MG tablet take 1 tablet in the AM and 2 tablets HS Active naloxone (Narcan) 4 mg/0.1 mL nasal spray Administer 0.1 mL into affected nostril(s). 2020 Active Respiratory Therapy Supplies (Nebulizer/Tubing/Mout hpiece) kit [...] AT NOON 90 tablet 3 2023 Active metFORMIN (Glucophage) 500 MG tablet Take 2 tablets by mouth 2 times daily. 2023 Active pravastatin (Pravachol) 40 MG tabletIndications:Pure hypercholesterolemia [...] 12 HOURS 60 patch 5 2024 Active Ketotifen Fumarate 0.035 % solution Administer [...] OR CHEW. 90 tablet 3 2024 Active topiramate (Topamax) 200 MG tabletIndications:Othe r migraine without status migrainosus, not intractable TAKE 1 TABLET BY MOUTH AT BEDTIME 90 tablet 1 2024 Active montelukast (Singulair) 10 MG tablet TAKE 1 TABLET BY MOUTH AT BEDTIME 90 tablet 3 2024 Active amitriptyline (Elavil) 50 MG tablet Take 1 tablet (50 mg) by mouth at bedtime. 90 tablet 1 2024 Active Ventolin HFA 108 (90 Base) MCG/ACT inhalerIndications:Mil d persistent asthma without complication INHALE 2 PUFFS BY MOUTH EVERY 4 TO 6 HOURS NEEDED 18 g 11 2024 Active amLODIPine (Norvasc) 5 MG tablet TAKE 1 TABLET BY MOUTH AT BEDTIME 30 tablet 2024 Active furosemide (Lasix) 20 MG tabletIndications:Air Brake Tester maria fernanda diastolic heart failure (HCC) TAKE 1 TABLET BY MOUTH EVERY DAY AT NOON 90 tablet 2024 Active amLODIPine (Norvasc) 5 MG tablet TAKE 1 TABLET BY MOUTH AT BEDTIME 30 tablet 2024 Active furosemide (Lasix) 20 MG tabletIndications:Air Brake Tester maria fernanda diastolic heart failure (HCC) TAKE 1 TABLET BY MOUTH EVERY DAY AT NOON 90 tablet 2024 Active empagliflozin (Jardiance) 10 MG Take 1 tablet (10 mg) by mouth Once per day. 90 tablet 1 05/18 Active insulin glargine (Lantus SoloStar) 100 UNIT/ML penIndications:Type 2 diabetes mellitus with hyperglycemia, with long-term current use of insulin (HCC) Inject 28 Units under the skin at bedtime. 15 mL 3 2024 Active Tirzepatide (Mounjaro) 5 MG/0.5ML solution auto-injector Inject 5 mg under the skin 1 (one) time per week. 2 mL 1 06/17 Active Diclofenac Sodium (Voltaren Arthritis Pain) 1 % gel Apply 2 g topically 2 times daily. 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 60 capsule 1 06/22 Active TRUEplus Lancets 33G miscIndications:Type 2 diabetes mellitus with hyperglycemia, unspecified whether intermediate insulin use ([facility]) TEST BLOOD SUGAR TWICE DAILY 100 each 11 05/18 Discontinued( Reorder (will not trigger notification to Pharmacy)) insulin pen needle (UltiGuard SafePack Pen Needle) 32G x 4 mm miscIndications:Type 2 diabetes mellitus with hyperglycemia, with long-term current use of insulin ([facility]) USE WITH INSULIN DIRECTED 100 each 11 05/18 Discontinued( Reorder (will not trigger notification to Pharmacy)) acetaminophen (Tylenol 8 Hour) 650 MG ER tabletIndications:Hist ory of total knee arthroplasty, left Take 1 tablet (650 mg) by mouth every 8 (eight) hours if needed (pain or fever). Do not crush, chew, or split. 100 tablet 2 05/26 empagliflozin (Jardiance) 10 MG Take 1 tablet (10 mg) by mouth Once per day. 90 tablet 1 05/18 Discontinued( Reorder (will not trigger notification to Pharmacy)) furosemide (Lasix) 20 MG tabletIndications:Air Brake Tester maria fernanda diastolic heart failure (HCC) TAKE 1 TABLET BY MOUTH EVERY DAY AT NOON 90 tablet 05/14 Discontinued( Reorder (will not trigger notification to Pharmacy)) FREESTYLE LITE test stripIndications:Type 2 diabetes mellitus without complication, with long-term current use of insulin ([facility]) TEST BLOOD SUGAR TWICE DAILY 100 strip 11 05/18 Discontinued( Reorder (will not trigger notification to Pharmacy)) amLODIPine (Norvasc) 5 MG tablet TAKE 1 TABLET BY MOUTH AT BEDTIME 30 tablet 05/14 Discontinued Lantus SoloStar 100 UNIT/ML penIndications:Type 2 diabetes mellitus with hyperglycemia, with long-term current use of insulin ([facility]) INJECT 28 UNITS SUBCUTANEOUSLY AT BEDTIME 15 mL 3 05/18 Discontinued( Reorder (will not trigger notification to Pharmacy)) Tirzepatide (Mounjaro) 5 MG/0.5ML solution auto-injector Inject 5 mg under the skin 1 (one) time per week. 2 mL 1 05/18 Discontinued( Reorder (will not trigger notification to Pharmacy)) empagliflozin (Jardiance) 10 MG Take 1 tablet (10 mg) by mouth Once per day. 90 tablet 1 05/18 Discontinued insulin glargine (Lantus SoloStar) 100 UNIT/ML penIndications:Type 2 diabetes mellitus with hyperglycemia, with long-term current use of insulin ([facility]) Inject 28 Units under the skin at bedtime. 15 mL 3 05/18 Discontinued Tirzepatide (Mounjaro) 5 MG/0.5ML solution auto-injector Inject 5 mg under the skin 1 (one) time per week. 2 mL 1 05/18 Discontinued Hospital, Clinic, or Other Facility Administered Medication Ordered Dose Route Frequency Start Date End Date Status Insulin Lispro solution 10 UnitsIndications:Type 2 diabetes mellitus without complication, with long-term current use of insulin (HCC) 10 Units IJ Once 05/18/2025 05/18/2025 Ended Insulin Lispro solution 10 UnitsIndications:Type 2 diabetes mellitus with hyperglycemia, with long-term current use of insulin (HCC) 10 Units IJ Once 05/18/2025 05/18/2025 Ended Active Problems Problem Noted Date Diagnosed Date Stress incontinence 05/07/2025 Assessment & Plan (05/07/2025 3:24 PM EDT): -Received liners -DME request for disposable incont pads placed 05/07/25 Pulmonary nodule 01/08/2025 Overview (01/08/2025): Followed by [facility] November 2024: Calcified right upper lobe granuloma identified on CT. Plan: repeat 1 year Risk factors: tobacco use Tobacco use 01/08/2025 Overview (01/08/2025): - Cigg/day: 3 - Encouraged smoking cessation resources such as pharmacomtherapy, [facility] smoking cessation group, and [facility] pharmacy smoking cessation clinic - Lung CA screening followed by [facility] Pul - November 2024: Chest CT demonstrated calcified right upper lobe granuloma. Next due: November 2025 History of total knee arthroplasty, left 024 Overview (04/02/2024): 06/09/23 at [facility] - Dr. Laureano Assessment & Plan (01/08/2025 3:10 PM EDT): - Persistent pain with (+) effusion s/p fall at home - XR Feb 2024 in [facility] ED demonstrated increased demineralization along the subjacent proximal tibia, particularly subjacent to the medial flange of the prosthesis with possibile slight medial settling. Large joint effusion. - Apr 2024: Synovasure aspiration left knee by Dr. Laureano. Elevated CRP/sed rate. Joint fluid sent for testing. - Initially scheduled for revision surgery 09/27/24, on hold d/t recommendation for improved asthma control. Following with [facility] and reports breathing well controlled with current regimen. However, T2DM currently not well controlled - Pain control: APAP prn. Short course of oxycodone 5mg daily prn severe pain (5 tablets total), No refills. Reviewed med safety and SE. Assessment & Plan (10/01/2024 7:35 PM EDT): - Persistent pain with (+) effusion s/p fall at home - XR Feb 2024 in [facility] ED demonstrated increased demineralization along the subjacent proximal tibia, particularly subjacent to the medial flange of the prosthesis with possibile slight medial settling. Large joint effusion. - Apr 2024: Synovasure aspiration left knee by Dr. Laureano. Elevated CRP/sed rate. Joint fluid sent for testing. - Initially scheduled for revision surgery 09/27/24, but not cleared by anaesthesia. 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 Laureano ([facility]) Assessment & Plan (03/04/2024 6:12 PM [...] without complication 09/08/2017 Overview (01/08/2025): -Following with [facility] pulmonology -Continues with Breo Ellipta 200 mcg [...] -Spoke with [facility] pharmacy, will attempt to change to generic albuterol to see if works better for pt Diastolic heart failure 02/03/2017 Overview (05/28/2024): -Continues on Irbestartan 300mg daily at bedtime, furosemide 40mg daily, on SGLT2 -Following with [facility] - Dr. Calle -Pt denies SOB, swelling in extremities, difficulty breathing Assessment & Plan (01/08/2025 3:08 PM EDT): - reports no longer able to f/up with [facility] d/t NS policy - will refer to [facility] Cards. Reviewed importance of keeping scheduled appts or calling to schedule Cervical spondylosis 10/19/2016 Fibroma 06/10/2016 Diabetes mellitus 05/27/2016 Overview (05/07/2025): Lab Results Component Value Date HGBA1C 9.2 (H) 05/07/2025 HGBA1C 7.9 (A) 03/28/2025 HGBA1C 10.3 (A) 01/05/2025 HGBA1C 7.9 (A) 09/20/2024 HGBA1C 6.4 (H) 09/04/2024 HGBA1C 5.6 04/18/2024 -A1c goal </= 7.0% Medications: -Jardiance 10mg daily (SGLT2) -Lantus 28 units SQ nightly -Mounjaro 5mg subcutaneous weekly -Metformin 1000 mg BID -Lifestyle recommendations reviewed -Pt to follow up with [facility] Previous medications: - Ozempic (DC in May 2024 d/t SE - itching) - Trulicity (DC 03/28/25 d/t switch to Mounjaro) Assessment & Plan (05/07/2025 3:21 PM EDT): - Increase to Mounjaro 5mg subcutaneous weekly. Reviewed med safety and SE - Encouraged improved med adherence and lifestyle interventions Assessment & Plan (03/28/2025 4:28 PM EDT): [...] intolerance, MCKEON, or palpitations -Previously followed by [facility], pt will call to schedule f/u Lab Results Component Value Date TSH 0.33 04/05/2023 Insomnia 05/27/2016 Trigger finger 05/27/2016 Overview (05/28/2024): Followed by [facility] PRN Vitamin D deficiency 04/17/2014 Cobalamin deficiency 03/23/2014 Mixed anxiety and depressive disorder 10/06/2013 Assessment & Plan (05/28/2024 7:27 AM EST): -Following with psych team from [facility] -Continue with Wellbutrin 300mg daily, -Denies SI/HI/thoughts [...] Encounters Date Type Department Care Team Description 05/23/2025 Telephone [facility] MEDICINE [address], [place] [phone] Princess Min FNP Nurse Triage 05/21/2025 11:30 AM EDT Office Visit [facility] OPTOMETRY [address] [place], [place] [phone] Fransico, Gertrudis, OD Type 2 diabetes mellitus without complication, with long-term current use of insulin (HCC) (Primary Dx); PCO (posterior capsular opacification), right; Meibomian gland disease of both eyes, unspecified eyelid; Pseudophakia of both eyes; Presbyopia 05/21/2025 Telephone [facility] MEDICINE [address], [place] [phone] Princess Min FNP call back with xray results 05/21/2025 Travel 05/20/2025 Orders Only [facility] External Provider, [facility] 05/18/2025 1:45 PM EDT Office Visit [facility] MED [facility] PEDS [address] [place] [address] Miguel Ángel Benavidez MD Injury of left knee, initial encounter (Primary Dx); Type 2 diabetes mellitus without complication, with long-term current use of insulin (HCC); Type 2 diabetes mellitus with hyperglycemia, with long-term current use of insulin (HCC); Left hip pain; Type 2 diabetes mellitus with hyperglycemia, 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 (HCC) 05/18/2025 Travel 05/17/2025 Telephone [facility] PEDS [address] [place] [address] Princess Min FNP Nurse Triage 05/17/2025 Telephone [facility] [address] [place] [address] Princess Min FNP Letter for School/Work 05/15/2025 Refill [facility] MEDICINE [address] [place] [address] Princess Min FNP 05/14/2025 Refill [facility] MEDICINE [address] [place] [address] Princess Min FNP Chronic diastolic heart failure (HCC) 05/14/2025 Telephone [facility] MEDICINE [address] [place] [address] Princess Min FNP 05/14/2025 Travel 05/14/2025 Refill [facility] MEDICINE [address] [place] [address] Princess Min FNP Chronic diastolic heart failure (HCC) 05/14/2025 Refill [facility] [address] [place] [address] Corina Pina MD Chronic diastolic heart failure (HCC) 05/09/2025 Results Follow-Up [facility] [address] [place] [address] Princess Min FNP POCT glucose manually resulted, Hemoglobin A1c 05/09/2025 Telephone [facility] MEDICINE [address] [place] [address] Princess Min FNP Nurse Triage 05/09/2025 Telephone [facility] [address] [place] [address] Princess Min FNP 05/09/2025 Telephone [facility] [address] [place] [address] Princess Min, FOUNDRY TECHNICIAN 05/07/2025 10:15 AM EDT Office Visit [facility] [address] [place] [address] Princess Min, FOUNDRY TECHNICIAN Type 2 diabetes mellitus without complication, with long-term current use of insulin (HCC) (Primary Dx); Moderate persistent asthma without complication; Routine health maintenance; Stress incontinence 05/07/2025 Travel 05/04/2025 Telephone [facility] [address] [place] [address] Princess Min, FOUNDRY TECHNICIAN Chart Prep 04/30/2025 Telephone [facility] [address] [place] [address] Princess Min, FOUNDRY TECHNICIAN Care Coordination (CP Care Plan) 04/24/2025 9:40 AM EDT Office Visit [facility] OPTOMETRY [address] [place] [address] Fransico, Gertrudis, OD Type 2 diabetes mellitus without complication, with long-term current use of insulin (CMS/HCC) (Primary Dx) 04/24/2025 Travel 04/24/2025 Refill [facility] MEDICINE [address] [place] [address] Princess Min, FOUNDRY TECHNICIAN Mild persistent asthma without complication 04/20/2025 Travel 04/17/2025 Refill [facility] [address] [place] [address] Princess Min, FOUNDRY TECHNICIAN Type 2 diabetes mellitus with hyperglycemia, with long-term current use of insulin (CMS/HCC) 04/13/2025 Refill [facility] MEDICINE [address] [place] [address] Princess Min, FOUNDRY TECHNICIAN 03/29/2025 Telephone [facility] [address] [place] [address] Princess Min, FOUNDRY TECHNICIAN 03/28/2025 10:15 AM EDT Office Visit [facility] MEDICINE [address] [place] [address] Princess Min, FOUNDRY TECHNICIAN Type 2 diabetes mellitus without complication, with long-term current use of insulin ([facility]) (Primary Dx); Dietary counseling; Exercise counseling; Stress incontinence 03/28/2025 Telephone [facility] [address] [place], [place] [phone] Princess Min FNP Care Coordination 03/28/2025 Travel 03/27/2025 Telephone [facility] MEDICINE [address], [place] [phone] Princess Min FNP CHART PREP 03/21/2025 Refill [facility] [address] [place], [place] [phone] Princess Min FNP 03/13/2025 Telephone [facility] [address] [place], [place] [phone] Princess Min FNP Medication Question 03/08/2025 Refill [facility] MEDICINE [address], [place] [phone] Princess Min FNP Other migraine without status [...] Sign Reading Time Taken Comments Blood Pressure 134/70 05/18/2025 2:26 PM EDT Pulse 80 05/18/2025 2:26 PM EDT Temperature 36.3 C (97.4 F) 05/18/2025 2:26 PM EDT Respiratory Rate 20 05/18/2025 2:26 PM EDT Oxygen Saturation 98% 05/07/2025 10:55 AM EDT Inhaled Oxygen Concentration - - Weight 103 kg (226 lb) 05/18/2025 2:26 PM EDT Height 154.9 cm (5' 1 ) 05/18/2025 2:26 PM EDT Body Mass Index 42.7 05/18/2025 2:26 PM EDT Plan of Treatment Upcoming Encounters Date Type Department Care Team (Late st Contact Info) Description 07/05/2025 1:30 PM EST Medication Management [facility] [address] [place] [address] Yee Bella, PharmD [address] [place] [address] Health Maintenance Due Date Last Done Comments CT Colonography 1963 Dental Oral Exam 1963 Dental Prophylaxis 1963 Dental X-Ray: Bitewings 1963 Dental X-Ray: Full Mouth 1963 FIT DNA/Cologuard 1963 FIT 1963 FOBT 1963 Sigmoidoscopy 1963 Disability Screening 1963 Diabetes: Foot Exam 1973 Pap Smear 1984 HPV/Cotest 1993 Mammogram 02/10/2024 02/09/2023, 02/08/2019 Diabetes: Hemoglobin A1C 08/07/2025 025, 03/28/2025, 01/05/2025, Additional history exists Diabetes: Urine Protein Screening 09/18/2025 09/18/2024, 04/05/2023, 03/11/2021, Additional history exists Lipid Panel 09/18/2025 09/18/2024, 03/26, 10/07/2021, Additional history exists Depression Monitoring 09/25/2025 03/28/2025, 025 SDOH Screening 01/05/2026 01/05/2025 Influenza Vaccine (#1) 2026 , 04/28/2022, 05/20/2021, Additional history exists Postponed from 03/26/2025 (Patient Refused) Alcohol/Substance Use Screening 03/28/2026 03/28/2025 COVID-19 Vaccine ( season) 2026 12/08/2022, 08/06/2021, 12/03/2020, Additional history exists Postponed from 03/26/2025 (Patient Refused) Tobacco Screening 05/21/2026 05/21/2025 Eye Exam 05/21/2027 05/21/2025, 04/26, 05/21/2025, Additional history exists Colonoscopy 05/24/2027 05/24/2017 Colorectal Cancer Screening 05/24/2027 [...] Procedure Name Priority Date/Time Associated Diagnosis Comments XR KNEE 3 VIEWS LEFT Routine 05/20/2025 4:26 PM EDT XR HIP 2 OR 3 VIEWS LEFT Routine 05/20/2025 4:25 PM EDT POCT GLUCOSE Routine 05/18/2025 2:27 PM EDT Type 2 diabetes mellitus without complication, with long-term current use of insulin ([facility]) HEMOGLOBIN A1C Routine 05/07/2025 11:39 AM EDT Type 2 diabetes mellitus without complication, with long-term current use of insulin ([facility]) POCT GLUCOSE Routine 05/07/2025 10:56 AM EDT Type 2 diabetes mellitus without complication, with long-term current use of insulin ([facility]) POCT GLYCATED HEMOGLOBIN, TOTAL Routine 03/28/2025 10:58 AM EDT Type 2 diabetes mellitus without complication, with long-term current use of insulin ([facility]) POCT GLUCOSE Routine 03/28/2025 10:48 AM EDT Type 2 diabetes mellitus without complication, with long-term current use of insulin ([facility]) ALBUMIN, RANDOM URINE W/CREATININE Routine 09/18/2024 11:31 [...] Recently Relevant to Health Maintenance Results * XR Knee 3 Views Left (05/20/2025 4:26 PM EDT) Anatomical Region Laterality Modality Lower Extremities, Knee Left Radiogra phic Imaging 05/20/2025 4:26 PM EDT Narrative 05/20/2025 4:28 PM EDT [place] [address] XRay Report Signed Patient: Argelia Messina MR#: [id number] : 1965 Acct:[id number] Age/Sex: 59 / F ADM Date: 05/20/25 Loc: HO.ED Attending Dr: Ordering Physician: Cynthia Sandoval NP Date of Service: 05/20/25 Procedure(s): XR knee LT 3V Accession Number(s): [id number] cc: Cynthia Sandoval PLANT CHIEF; Princess Min Reason for Exam: fall,. pain CLINICAL HISTORY: fall,. pain 4 view left knee Comparison: DX/OK/SR - XR KNEE 3 VIEWS LEFT - 09/21/24 09:31 EST Findings: Total arthroplasty and patellar resurfacing with intact hardware. Redemonstration of multifocal areas of decreased subtle lucencies adjacent to the femoral and tibial components of the prosthesis with no significant worsening or progression. No acute fracture or dislocation. No joint effusion. IMPRESSION: 1. No acute fracture, dislocation or significant joint effusion. 2. No acute hardware complications. This document has been electronically signed by: Sanjuana Haider DO on 05/20/2025 16:26:44 Dictated By: Sanjuana Haider MD Signed By: <Electronically signed by Sanjuana Haider MD in OV> 05/20/251626 DD/ 25 TD/TT: 05/20/251625 Chicken Buyer: Procedure Note Donotuseinterpreter, Image - 05/20/[address] [address] XRay Report Signed Patient: Nini Messina#: [id number] : 1965Acct:[id number] Age/Sex: 59 / FADM Date: 05/20/25 Loc: HO.ED Attending Dr: Ordering Physician: Cynthia Sandoval NP Date of Service: 05/20/25 Procedure(s): XR knee LT 3V Accession Number(s): [id number] cc: Cynthia Sandoval PLANT CHIEF; Princess Min Reason for Exam: fall,. pain CLINICAL HISTORY: fall,. pain 4 view left knee Comparison: DX/OK/SR - XR KNEE 3 VIEWS LEFT - 09/21/24 09:31 EST Findings: Total arthroplasty and patellar resurfacing with intact hardware. Redemonstration of multifocal areas of decreased subtle lucencies adjacent to the femoral and tibial components of the prosthesis with no significant worsening or progression. No acute fracture or dislocation. No joint effusion. IMPRESSION: 1. No acute fracture, dislocation or significant joint effusion. 2. No acute hardware complications. This document has been electronically signed by: Sanjuana Haider DO on 05/20/2025 16:26:44 Dictated By: Sanjuana Haider MD Signed By: <Electronically signed by Sanjuana Haider MD in OV> 05/20/251626 DD/ 25 TD/TT: 05/20/251625 Chicken Buyer: [facility] External Provider IMG XR PROCEDURES Edited Result - Final * XR Hip 2 or 3 Views Left (05/20/2025 4:25 PM EDT) Anatomical Region Laterality Modality Lower Extremities, Hip Left Radiograp hic Imaging 05/20/2025 4:25 PM EDT Narrative 05/20/2025 4:27 PM EDT [address] [address] XRay Report Signed Patient: Argelia Messina MR#: [id number] : 1965 Acct:[id number] Age/Sex: 59 / F ADM Date: 05/20/25 Loc: HO.ED Attending Dr: Ordering Physician: Cynthia Sandoval NP Date of Service: 05/20/25 Procedure(s): XR hip LT min 2V Accession Number(s): [id number] cc: Cynthia Sandoval PLANT CHIEF; Princess Min Reason for Exam: fall, pain CLINICAL HISTORY: fall, pain 3 view, pelvis and left hip Comparison: CR/SR - XR PELVIS 1-2V - 04/18/24 13:28 EDT Findings: The bones are intact. Mild degenerative changes in the bilateral hips. The soft tissues are unremarkable. IMPRESSION: No acute fracture or dislocation. This document has been electronically signed by: Sanjuana Haider DO on 05/20/2025 16:25:58 Dictated By: Sanjuana Haider MD Signed By: <Electronically signed by Sanjuana Haider MD in OV> 05/20/256 DD/ 1625 TD/TT: 05/20/251624 Chicken Buyer: Procedure Note Donotuseinterpreter, Image - 05/20/[address] [address] XRay Report Signed Patient: Brennon MessinaR#: [id number] : 1965Acct:[id number] Age/Sex: 59 / FADM Date: 05/20/25 Loc: HO.ED Attending Dr: Ordering Physician: Cynthia Sandoval NP Date of Service: 05/20/25 Procedure(s): XR hip LT min 2V Accession Number(s): [id number] cc: Cynthia Sandoval PLANT CHIEF; MechellePrincess FOUNDRY TECHNICIAN Reason for Exam: fall, pain CLINICAL HISTORY: fall, pain 3 view, pelvis and left hip Comparison: CR/SR - XR PELVIS 1-2V - 04/18/24 13:28 EDT Findings: The bones are intact. Mild degenerative changes in the bilateral hips. The soft tissues are unremarkable. IMPRESSION: No acute fracture or dislocation. This document has been electronically signed by: Sanjuana Haider DO on 05/20/2025 16:25:58 Dictated By: Sanjuana Haider MD Signed By: <Electronically signed by Sanjuana Haider MD in OV> 05/20/251625 DD/ 24 TD/TT: 05/20/251624 Chicken Buyer: [facility] External Provider IMG XR PROCEDURES Edited Result - Final * (ABNORMAL) POCT Glucose (05/18/2025 2:27 PM EDT) Only the most recent of3 resultswithin the time period is included. Glucose Blood, POC 500(A) 60 - 200 mg/dL Comment:[facility] QC Media Lot # [id number] Lot# Expiration Date [id number] Blood Capillary blood specimen / Unknown 05/18/2025 2:27 PM EDT Miguel Ángel Archuleta MD POINT OF CARE TEST ENTER/EDIT ORDERABLES Final Result * (ABNORMAL) Hemoglobin A1c (05/07/2025 11:39 AM EDT) Hemoglobin A1c 9.2(H) <6.0 % [facility] Comment:Hemoglobin A1C Refer ence Range Adults: 4.8 - 6.0 % Non diabetic: < 6.0 % Goal: < 7.0 %Additional Action Suggested: > 8.0 %Note: Hemoglobin A1c results are invalid for patients with abnormal amounts of HbF. Blood transfusions may impact the HbA1c concentration in the patient sample. Estimated Average Glucose 217 mg/dL [facility] Comment:eAG = Estimated ave rage glucose which is %A1C expressed asaverage glucose, using the formula of the H4Y-YygunrxHxujpsd Glucose study (ADAG), Diabetes Care, Vol.31,#8,Feb. 2007 Blood Venous blood specimen / Unknown 05/07/2025 11:39 AM EDT 05/07/2025 2:14 PM EDT us Princess Min FOUNDRY TECHNICIAN LAB BLOOD ORDERABLES Final Res ult Performing Organization Address [facility]/Va [facility] Co de Phone Number [facility] [address] [place] [phone] * (ABNORMAL) POCT HGB A1C (03/28/2025 10:58 AM EDT) Hemoglobin A1C 7.9(A) 4.0 - 5.7 % QC Media Lot # [id number] Lot# Expiration Date Blood 03/28/2025 10:5 8 AM EDT us Sánchez Phalida FOUNDRY TECHNICIAN POINT OF CARE TEST ENTER/EDIT ORDERABLES Final Result * Albumin, Random Urine W/Creatinine (09/18/2024 11:31 AM EST) Creatinine, Urine 65.49 mg/dL [facility] Microalbumin Urine 8.0 mg/L [facility] Microalbum Creatinine Ratio Ur 12.2 <30 ug/mg cr [facility] Comment:Albumin/Creatinine R atio Reference Ranges: Normal: < 30 ug/mg creatinine Microalbuminuria: 30 - 300 ug/mg creatinineClinical Albuminuria: > 300 ug/mg creatinine Urine 09/18/2024 11:3 1 AM EST 09/18/2024 2:41 PM EST us Princess Min FOUNDRY TECHNICIAN LAB URINE ORDERABLES Final Res ult Performing Organization Address [facility]/Va Hospital/ZIP Co de Phone Number [facility] [address] [place] [phone] * Hepatitis C Viral RNA, Quantitative, Real-Time PCR (09/18/2024 11:22 AM EST) Pathologist [facility] Hepatitis C Viral Load <15 NOT DETECTED NOT DETECTED IU/mL [facility] HCV Log PCR <1.18 NOT DETECTED NOT DETECTED Log IU/mL [facility] Comment:For additional infor raynemayela, please refer tohttp://education.Red Ambiental/faq/ENS80o9(This link is being provided for informational/educational purposes only.)THIS TEST WAS PERFORMED AT:[facility] [place] [phone] GARCIA MD Blood 09/18/2024 11:2 2 AM EST 09/18/2024 2:41 PM EST Princess Min [facility] BLOOD ORDERABLES Final Res ult [facility] [address] [place] [phone] * HIV-1/2 Antigen and Antibodies, Fourth Generation, with Reflexes (09/18/2024 11:22 AM EST) Pathologist [facility] HIV AB/AG Nonreactive Nonreactive [facility] Comment:HIV-1 p24 Ag and/or HIV-1/HIV-2 Ab not detected.A test result that is nonreactive does not exclude thepossibility of exposure to or infection with HIV-1 and/orHIV-2. Nonreactive results in this assay for individualswith prior exposure to HIV-1 and/or HIV-2 may be due toantigen and antibody levels that are below the limit ofdetection of this assay.The [employer] HIV Ag/Ab Combo assay result andsupplemental assay results should be interpreted inconjunction with the patient's clinical presentation,history and other laboratory results. If the results areinconsistent with clinical evidence, additional testing issuggested to confirm the result. Blood Venous blood specimen / Unknown 09/18/2024 11:22 AM EST 09/18/2024 2:41 PM EST Princessakhil Min [facility] BLOOD ORDERABLES Final Res ult Performing Organization Address [facility] Co de Phone Number [facility] [address] [place] [phone] * Lipid Panel, Standard (09/18/2024 11:02 AM EST) Triglycerides 136 <150 mg/dL [facility] Comment:Desirable Triglyceri de: less than 150 mg/dLBorderline High Triglyceride 150-199 mg/dLHigh Triglyceride: 200-499 mg/dLVery High Triglyceride: greater than or equal to 5OO mg/dL Cholesterol 156 <200 mg/dL [facility] Comment:Desirable Cholestero l: less than 200 mg/dLBorderline High Cholesterol: 200-239 mg/dLHigh Cholesterol: greater than 239 mg/dL LDL Cholesterol Calculated 75 <100 mg/dL [facility] Comment:Desirable LDL: less than 100 mg/dLNear Optimal/Above Optimal LDL: 110- 129 mg/dLBorderline High LDL: 130-159 mg/dLHigh LDL: 160-189 mg/dLVery High LDL: greater than or equal to 190 mg/dL HDL Cholesterol 54 >40 mg/dL [facility] Comment:Desirable HDL: great er than 40 mg/dL Note: This HDL assay may give artificially low results in patients with liver disease. Blood Venous blood specimen / Unknown 09/18/2024 11:02 AM EST 09/18/2024 2:41 PM EST Princess Min [facility] BLOOD ORDERABLES Final Res ult Performing Organization Address City/Va Hospital/ZIP Co de Phone Number [facility] [address] [place] [phone] * BI Mammogram Screening Tomosynthesis Bilateral (02/09/2023 11:07 AM EDT) Anatomical Region Laterality Modality Breast Bilateral Mammography 02/09/2023 11:0 7 AM EDT Narrative 03/05/2023 6:25 AM EDT [address] [place] [address] Mammography Report Signed Patient: Argelia Messina MR#: [id number] : 1965 Acct:[id number] Age/Sex: 57 / F ADM Date: 02/09/23 Loc: HO.MAMMO Attending Dr: Princess Min FOUNDRY TECHNICIAN Ordering Physician: Princess Min Results: Date of Service: 02/09/23 Follow Up: Procedure(s): MM tomosynthesis screening BI Accession Number(s): [id number] cc: Princess Min FOUNDRY TECHNICIAN EXAMINATION: MM SCREENING DIGITAL BREAST TOMOSYNTHESIS, BILATERAL [...] signed by Margo Shankar MD in OV> 03/05/23622 DD/ 1107 TD/TT: Chicken Buyer: Procedure Note Donotuseinterpreter, Image - 03/05/[address] [place] [address] Mammography Report Signed Patient: Nini Messina#: [id number] : 1965Acct:[id number] Age/Sex: 57 / FADM Date: 02/09/23 Loc: HO.MAMMO Attending Dr: Princess MAHANP Ordering Physician: Princess MinPResults: Date of Service: 02/09/23Follow Up: Procedure(s): MM tomosynthesis screening BI Accession Number(s): [id number] cc: Princess Min EXAMINATION: MM SCREENING DIGITAL [...] in OV> 03/05/23 0623 DD/ 1107 TD/TT: Chicken Buyer: Princess Min FOUNDRY TECHNICIAN IMG BI PROCEDURES Final Result * Hm Colonoscopy (05/24/2017) Colonoscopy Normal Normal Historical Provider HEALTH MAINTENANCE Final Result from Last 3 Months or Most Recently Relevant to Health Maintenance Insurance [facility] C3 DENTAL-[facility] MEDICAID STAND ADULT Care Teams Top Knitter Relationship Specialty Start Date End Date Princess Min FNP [address] [place] [address] PCP - General Family Medicine 02/10/24 Cherelle Roy Superintendent Container TerminalEnvironmental Health And Safety Leader 01/24/25 Christine Villaseñor Superintendent Container TerminalEnvironmental Health And Safety Leader 04/30/25
--- OUTSIDE RECORDS SUMMARY | 2025-06-04 17:17 | XMS_ITS | Encounter Summary ---
Author Organization [employer] Address [address] [facility] 7t [place] [address] Care Team Providers Care Crowning Hammer Operator Name Role Phone Princess Min Primary Care Provider [phone] Reason for Visit * Reason Onset Date Comments Med Refill 07/13/2024 Encounter Details Date Type Department Care Team ([facility] st Contact Info) Description 07/13/2024 Telephone [facility] [address] [place] [address] Princess Min FNP [address] [place], [place] [phone] Med Refill Social History Tobacco Use Types [...] 7:46 PM EST She is not on SENIOR JAVA J2EE DEVELOPER, would need appt to discuss pain control. [...] for the pain. Please contact pt at [phone]. documented in this encounter Plan of Treatment Upcoming Encounters Date Type Department Care Team ([facility] st Contact Info) Description 07/05/2025 1:30 PM EST Medication Management [facility] MED & PEDS [address] [place] [address] Yee Bella PharmD [address] [place] [address] documented as of this encounter Visit Diagnoses Not on filedocumented in this encounter Additional Health Concerns Assessment Noted Time PHQ-9 Depression Total Score: 3 03/03/20 24 11:33 AM EDT documented as of this encounter Care Teams Crowning Hammer Operator Relationship Specialty Start Date End Date Princess Min FNP [address] [place] [address] PCP - General Family Medicine 02/10/24 Cherelle Roy Construction EconomistMotors And Controls Tester 01/24/25 Christine Villaseñor Construction EconomistMotors And Controls Tester 04/30/25 documented as of this encounter
--- OUTSIDE RECORDS SUMMARY | 2025-06-04 17:17 | XMS_ITS | Encounter Summary ---
Author Organization [employer] Address [address] [facility] 7t [place] [address] Care Team Providers Care Microbiology Teacher Name Role Phone Princess Min Primary Care Provider [phone] Reason for Visit * Reason Onset Date Comments FYI 07/13/2024 Encounter Details Date Type Department Care Team ([facility] st Contact Info) Description 07/13/2024 Telephone [facility] MEDICINE [address] [place] [address] Princess Min FNP [address] [place], [place] [phone] FYI Social History Tobacco Use Types Packs/Day [...] Description 07/05/2025 1:30 PM EST Medication Management [facility] MED & PEDS [address] [place] [address] Yee Bella, PharmD [address] [place] [address] documented as of this encounter Visit Diagnoses Not on filedocumented in this encounter Additional Health Concerns Assessment Noted Time PHQ-9 Depression Total Score: 3 03/03/20 24 11:33 AM EDT documented as of this encounter Care Teams Microbiology Teacher Relationship Specialty Start Date End Date Princess Min FNP [address] [place] [address] PCP - General Family Medicine 02/10/24 Cherelle Roy Derrick BuilderWarehouse Processor 01/24/25 Christine Villaseñor Derrick BuilderWarehouse Processor 04/30/25 documented as of this encounter
--- OUTSIDE RECORDS SUMMARY | 2025-06-04 17:17 | XMS_ITS | Encounter Summary ---
Author Organization [employer] Address [address] [facility] 7t [place] [address] Care Team Providers Care Refrigerating Engineer Head Name Role Phone Princess Min BARREL RIFLER HOOK Primary Care Provider [phone] Reason for Visit * Reason Comments Med Refill Encounter Details Date Type Department Care Team ([facility] st Contact Info) Description 11/09/2024 Refill [facility] MED & PEDS [address] [place], [place] [phone] Princess Min FNP [address] [place], [place] [phone] History of total knee arthroplasty, left Social [...] 1:30 PM EST Medication Management [facility] MED & PEDS [address] [place] [address] Yee Bella PharmD [address] [place] [address] documented as of this encounter Visit Diagnoses Diagnosis History of total knee arthroplasty, left documented in this encounter Additional Health Concerns Assessment Noted Time PHQ-9 Depression Total Score: 3 03/03/20 24 11:33 AM EDT documented as of this encounter Care Teams Refrigerating Engineer Head Relationship Specialty Start Date End Date Princess Min FNP [address] [place] [address] PCP - General Family Medicine 02/10/24 Cherelle Roy Net Mobile DeveloperAccount Resolution Specialist 01/24/25 Christine Villaseñor Net Mobile DeveloperAccount Resolution Specialist 04/30/25 documented as of this encounter
--- OUTSIDE RECORDS SUMMARY | 2025-06-04 17:17 | XMS_ITS | Encounter Summary ---
Author Organization [employer] Address [address] [facility] 7t [place] [address] Care Team Providers Care Pharmacist Critical Care Name Role Phone Princess Min Primary Care Provider [phone] Princess Min Primary Care Provider [phone] Reason for Visit * Reason Onset Date Comments New Med Request 02/03/2024 Encounter Details Date Type Department Care Team (Late st Contact Info) Description 02/03/2024 Telephone [facility] MEDICINE [address] [place] [address] Princess Min FNP [address] [place], [place] [phone] New Med Request Social History Tobacco Use [...] 07/05/2025 1:30 PM EST Medication Management [facility] MED & PEDS [address] [place] [address] Yee Belal, PharmD [address] [place] [address] documented as of this encounter Visit Diagnoses Not on filedocumented in this encounter Additional Health Concerns Assessment Noted Time PHQ-9 Depression Total Score: 10 023 10:39 AM EDT documented as of this encounter Care Teams Pharmacist Critical Care Relationship Specialty Start Date End Date Princess Min FNP [address] [place] [address] PCP - General Family Medicine 01/21/24 02/03/24 Princess Min FNP [address] [place] [address] PCP - General Family Medicine 02/10/24 Cherelle Roy Toy Parts Former SupervisorAssociate Designer 01/24/25 Christine Villaseñor Toy Parts Former SupervisorAssociate Designer 04/30/25 documented as of this encounter
--- OUTSIDE RECORDS SUMMARY | 2025-06-04 17:17 | XMS_ITS | Encounter Summary ---
Author Organization [employer] Address [address] [facility] 7t [place] [address] Care Team Providers Care Professor Of Visual Arts Name Role Phone Princess Min FLAG SIGNALER Primary Care Provider [phone] Reason for Visit * Reason Comments Med Refill Encounter Details Date Type Department Care Team ([facility] st Contact Info) Description 07/17/2024 Refill [facility] MED & PEDS [address] [place], [place] [phone] Princess Min FNP [address] [place], [place] [phone] Acute otitis externa of left ear, unspecified [...] 07/05/2025 1:30 PM EST Medication Management [facility] MED & PEDS [address] [place] [address] Yee Bella PharmD [address] [place] [address] documented as of this encounter Visit Diagnoses Diagnosis Acute otitis externa of left ear, unspecified type Intermittent diarrhea documented in this encounter Additional Health Concerns Assessment Noted Time PHQ-9 Depression Total Score: 3 03/03/20 24 11:33 AM EDT documented as of this encounter Care Teams Professor Of Visual Arts Relationship Specialty Start Date End Date Princess Min FNP [address] [place] [address] PCP - General Family Medicine 02/10/24 Cherelle Roy Operator LightsSurveying Teacher 01/24/25 Christine Villaseñor Operator LightsSurveying Teacher 04/30/25 documented as of this encounter
--- OUTSIDE RECORDS SUMMARY | 2025-06-04 17:17 | XMS_ITS | Encounter Summary ---
Author Organization [employer] Address [address] [facility] 7t [place] [address] Care Team Providers Care Repack Room Worker Name Role Phone Princess Min Primary Care Provider [phone] Princess Min Primary Care Provider [phone] Princess Min Primary Care Provider [phone] Reason for Referral * Imaging (Routine) - Closed Specialty Diagnoses / Procedures Referred By Contnargis t Referred To Contact Diagnoses Encounter for screening mammogram for malignant neoplasm of breast Procedures BI Mammogram Screening Bilateral Princess Min FNP [address] [place] [address] Phone: tel: fax: [facility] [address] [place] [address] Phone: tel: fax: Referral ID Status Reason Start Date Expiration Date Visits Re quested Visits Authorized [id number] Closed 11/23/2022 05/22/2023 1 1 Reason for Visit * Reason Onset Date Comments Referral 11/20/2022 Encounter Details Date Type Department Care Team ([facility] st Contact Info) Description 11/20/2022 Telephone [facility] MEDICINE [address] [place] [address] Princess Min FNP [address] [place] [address] Referral Social History Tobacco Use Types Packs/Day [...] In the last 10 days, have sierra u been in contact with someone who was confirmed or suspected to have Coronavirus/COVID-19? No / Unsure 11/16/2022 9:03 AM EDT documented as of this encounter Miscellaneous Notes * Telephone Encounter - BIANCA Arboleda - 11/23/2022 6:32 AM EDT Please fax order for mammo to [facility] and call to let Ms. Garcia know when completed. Thank you. * Telephone Encounter - Alissa Winkler - 11/20/2022 10:16 AM EDT Tc from pt requesting a mammogram referral . Location [facility]. documented in this encounter Plan of Treatment Upcoming Encounters Date Type Department Care Team (Late st Contact Info) Description 07/05/2025 1:30 PM EST Medication Management [facility] MED & PEDS [address] [place] [address] Yee Bella, PharmD [address] [place] [address] Scheduled Orders Name Type Priority Associated Diagnoses [...] documented as of this encounter Care Teams Repack Room Worker Relationship Specialty Start Date End Date Princess Min FNP [address] [place] [address] PCP - General Family Medicine 03/20/22 12/26/23 Princess Min FNP [address] [place] [address] PCP - General Family Medicine 01/21/24 02/03/24 Princess Min FNP [address] [place] [address] PCP - General Family Medicine 02/10/24 Cherelle Roy Social Worker AideDirector Patient Accounting 01/24/25 Christine Villaseñor Social Worker AideDirector Patient Accounting 04/30/25 documented as of this encounter
--- OUTSIDE RECORDS SUMMARY | 2025-06-04 17:17 | XMS_ITS | Encounter Summary ---
Author Organization [employer] Address [address] [facility] 7t [place] [address] Care Team Providers Care Biomedical Equipment Tech Name Role Phone Princess Min Primary Care Provider [phone] Reason for Visit * Reason Comments Med Refill Encounter Details Date Type Department Care Team ([facility] st Contact Info) Description 05/15/2025 Refill [facility] MEDICINE [address] [place] [address] Princess Min FNP [address] [place], [place] [phone] Social History Tobacco Use Types Packs/Day Years [...] [facility] MED & PEDS [address] [place] [address] Yee Bella, PharmD [address] [place] [address] documented as of this encounter Visit Diagnoses Not on filedocumented in this encounter Additional Health Concerns Assessment Noted Time PHQ-9 Depression Total Score: 9 03/28/20 25 11:35 AM EDT documented as of this encounter Care Teams Biomedical Equipment Tech Relationship Specialty Start Date End Date Princess Min FNP [address] [place] [address] PCP - General Family Medicine 02/10/24 Cherelle Roy Clinician OncologyJob Printer Apprentice 01/24/25 Christine Villaseñor Clinician OncologyJob Printer Apprentice 04/30/25 documented as of this encounter
--- OUTSIDE RECORDS SUMMARY | 2025-06-04 17:17 | XMS_ITS | Encounter Summary ---
Author Organization [employer] Address [address] [facility] 7t [place] [address] Care Team Providers Care Used Car Sales Manager Name Role Phone Princess Min Primary Care Provider [phone] Princess Min Primary Care Provider [phone] Princess Min Primary Care Provider [phone] Reason for Visit * Reason Onset Date Comments PCP Switch 06/22/2023 Encounter Details Date Type Department Care Team ([facility] st Contact Info) Description 06/22/2023 Telephone [facility] MEDICINE [address] [place] [address] Princess Min FNP [address] [place], [place] [phone] PCP Switch Social History Tobacco Use Types [...] be seen by a doctor not a KITCHEN AND BATH DESIGNER screenplay writer did express that it will be sometime before the change can take place patient is aware and ok with response. documented in this encounter Plan of Treatment Upcoming Encounters Date Type Department Care Team (Late st Contact Info) Description 07/05/2025 1:30 PM EST Medication Management [facility] MED & PEDS [address] [place] [address] Yee Bella, PharmD [address] [place] [address] documented as of this encounter Visit Diagnoses Not on filedocumented in this encounter Additional Health Concerns Assessment Noted Time PHQ-9 Depression Total Score: 10 023 10:39 AM EDT documented as of this encounter Care Teams Used Car Sales Manager Relationship Specialty Start Date End Date Princess Min FNP [address] [place] [address] PCP - General Family Medicine 03/20/22 12/26/23 Princess Min FNP [address] [place] [address] PCP - General Family Medicine 01/21/24 02/03/24 Princess Min FNP [address] [place] [address] PCP - General Family Medicine 02/10/24 Cherelle Roy Computer Systems DesignerForming Machine Adjuster 01/24/25 Christine Villaseñor Computer Systems DesignerForming Machine Adjuster 04/30/25 documented as of this encounter
--- OUTSIDE RECORDS SUMMARY | 2025-06-04 17:17 | XMS_ITS | Encounter Summary ---
Author Organization [employer] Address 75 [facility] 7t [place] [address] Care Team Providers Care Lottery Sales Clerk Name Role Phone Princess Min Primary Care Provider [phone] Princess Min Primary Care Provider [phone] Princess Min Primary Care Provider [phone] Reason for Visit * Reason Onset Date Comments Referral 11/20/2022 Encounter Details Date Type Department Care Team ([facility] st Contact Info) Description 11/20/2022 Telephone [facility] MEDICINE [address] [place] [address] Princess Min FNP [address] [place], [place] [phone] Referral Social History Tobacco Use Types Packs/Day [...] would like to see Dr Deras at [facility] because of her strong family hx of [...] Specialty: Seth Deras [facility] Location:[address] [place] [address] Dr Dorsey [address] [place] [address] Date&Time: n/a Mold Machine Operator: n/a Please call pt to clarify. documented in this encounter Plan of Treatment Upcoming Encounters Date Type Department Care Team (Late st Contact Info) Description 07/05/2025 1:30 PM EST Medication Management [facility] MED & PEDS [address] [place] [address] Yee Bella, PharmD 230 [place] [address] documented as of this encounter Visit Diagnoses Not on filedocumented in this encounter Additional Health Concerns Assessment Noted Time PHQ-9 Depression Total Score: 24 023 9:25 AM EDT documented as of this encounter Care Teams Lottery Sales Clerk Relationship Specialty Start Date End Date Princess Min FNP 230 [place] [address] PCP - General Family Medicine 03/20/22 12/26/23 Princess Min FNP [address] [place], [place] [phone] PCP - General Family Medicine 01/21/24 02/03/24 Princess Min FNP [address] [place] [address] PCP - General Family Medicine 02/10/24 Cherelle Roy Resident Service CoordinatorNurse Prn 01/24/25 Christine Villaseñor Resident Service CoordinatorNurse Prn 04/30/25 documented as of this encounter
--- OUTSIDE RECORDS SUMMARY | 2025-06-04 17:17 | XMS_ITS | Encounter Summary ---
Author Organization [employer] Address 75 [facility] 7t [place] [address] Care Team Providers Care Dual Rate Supervisor Name Role Phone Princess Min SAND SLINGER OPERATOR Primary Care Provider [phone] Reason for Visit * Reason Onset Date Comments Letter for School/Work 05/17/2025 Encounter Details Date Type Department Care Team ([facility] st Contact Info) Description 05/17/2025 Telephone [facility] CHC MED & PEDS [address] [place], [place] [phone] Pricness Min FNP [address] [place], [place] [phone] Letter for School/Work Social History Tobacco Use Types Packs/Day Years [...] encounter Miscellaneous Notes * Telephone Encounter - Alvaro Aguirre - 05/17/2025 2:54 PM EDT Tc from pt requesting a letter to be sent to the house department. Pt did not state where the housewas, or what she needs stated on the letter. Call was disconnected. Contact pt at [phone] documented in this encounter Plan of Treatment Upcoming Encounters Date Type Department Care Team (Late st Contact Info) Description 07/05/2025 1:30 PM EST Medication Management [facility] MED & PEDS [address] [place] [address] Yee Bella, PharmD 230 [place] [address] documented as of this encounter Visit Diagnoses Not on filedocumented in this encounter Additional Health Concerns Assessment Noted Time PHQ-9 Depression Total Score: 9 03/28/20 25 11:35 AM EDT documented as of this encounter Care Teams Dual Rate Supervisor Relationship Specialty Start Date End Date Princess Min FNP [address] [place] [address] PCP - General Family Medicine 02/10/24 Cherelle Roy Hospice AideDirector Mission 01/24/25 Christine Villaseñor Hospice AideDirector Mission 04/30/25 documented as of this encounter
--- OUTSIDE RECORDS SUMMARY | 2025-06-04 17:17 | XMS_ITS | Encounter Summary ---
Author Organization [employer] Address 75 [facility] 7t [place] [address] Care Team Providers Care Entertainment Director Name Role Phone Princess Min Primary Care Provider [phone] Reason for Visit * Reason Comments Med Refill Encounter Details Date Type Department Care Team ([facility] st Contact Info) Description 09/15/2024 Refill [facility] MEDICINE [address] [place] [address] Princess Min FNP [address] [place], [place] [phone] Social History Tobacco Use Types Packs/Day Years [...] Description 07/05/2025 1:30 PM EST Medication Management [facility] MED & PEDS 505 [place] [address] Yee Bella PharmD 230 [place] [address] documented as of this encounter Visit Diagnoses Not on filedocumented in this encounter Additional Health Concerns Assessment Noted Time PHQ-9 Depression Total Score: 3 03/03/20 24 11:33 AM EDT documented as of this encounter Care Teams Entertainment Director Relationship Specialty Start Date End Date Princess Min FNP [address] [place] [address] PCP - General Family Medicine 02/10/24 Cherelle Roy It Security ManagerGroup Reservations Coordinator 01/24/25 Christine Villaseñor It Security ManagerGroup Reservations Coordinator 04/30/25 documented as of this encounter
--- OUTSIDE RECORDS SUMMARY | 2025-06-04 17:17 | XMS_ITS | Encounter Summary ---
Author Organization [employer] Address 75 [facility] 7t [place] [address] Care Team Providers Care Hose Seamer Name Role Phone Princess Min Primary Care Provider Princess Min Primary Care Provider [phone] Princess Min Primary Care Provider [phone] Reason for Visit * Reason Comments Med Refill Encounter Details Date Type Department Care Team ([facility] Contact Info) Description 08/07/2022 Refill [facility] MEDICINE 230 [place], [place] [phone] Princess Min FNP 505 [place], [place] [phone] Cervical spondylosis Social History Tobacco Use Types [...] Department Care Team (Late Contact Info) Description 07/05/2025 1:30 PM EST Medication Management [facility] CHC MED & PEDS 505 [place], [place] [phone] Yee Bella, PharmD 230 [place] [address] documented as of this encounter Visit Diagnoses Diagnosis Cervical spondylosis Cervical spondylosis without myelopathy documented in this encounter Care Teams Hose Seamer Relationship Specialty Start Date End Date Princess Min FNP 230 [place] [address] PCP - General Family Medicine 03/20/22 12/26/23 Princess Min FNP [address] [place] [address] PCP - General Family Medicine 01/21/24 02/03/24 Princess Min FNP [address] [place] [address] PCP - General Family Medicine 02/10/24 Cherelle Roy [employer] Assistant ManagerClinical Practitioner 01/24/25 Christine Villaseñor [employer] Assistant ManagerClinical Practitioner 04/30/25 documented as of this encounter
--- OUTSIDE RECORDS SUMMARY | 2025-06-04 17:17 | XMS_ITS | Encounter Summary ---
Author Organization [email or web address] Address 75 [facility] 7t [place] [address] Care Team Providers Care Battery Tester Field Name Role Phone Princess Min Primary Care Provider [phone] Princess Min Primary Care Provider [phone] Reason for Visit * Reason Comments Med Change Request Encounter Details Date Type Department Care Team ([facility] st Contact Info) Description 12/28/2023 Refill [facility] CHC MED & PEDS [address] [place], [place] [phone] Princess Min FNP 505 [place] [address] Social History Tobacco Use Types Packs/Day Years [...] [facility] MED & PEDS [address] [place] [address] Yee Bella, PharmD 230 [place] [address] documented as of this encounter Visit Diagnoses Not on filedocumented in this encounter Additional Health Concerns Assessment Noted Time PHQ-9 Depression Total Score: 10 023 10:39 AM EDT documented as of this encounter Care Teams Battery Tester Field Relationship Specialty Start Date End Date Princess Min FNP [address] [place] [address] PCP - General Family Medicine 01/21/24 02/03/24 Princess Min FNP [address] [place] [address] PCP - General Family Medicine 02/10/24 Cherelle Roy Mechanical TechnologistForest Fire Lookout 01/24/25 Christine Villaseñor Mechanical TechnologistForest Fire Lookout 04/30/25 documented as of this encounter
--- OUTSIDE RECORDS SUMMARY | 2025-06-04 17:17 | XMS_ITS | Encounter Summary ---
Author Organization [employer] Address 75 [facility] 7t [place] [address] Care Team Providers Care Sales Engineer Engineered Products Name Role Phone Princess Min Primary Care Provider [phone] Reason for Visit * Reason Onset Date Comments call back with xray results 05/21/2025 Encounter Details Date Type Department Care Team ([facility] st Contact Info) Description 05/21/2025 Telephone [facility] MEDICINE [address] [place] [address] Princess Min FNP [address] [place], [place] [phone] call back with xray results Social History Tobacco Use Types Packs/Day Years [...] the past 12 months, has t he [employer], gas, oil or water [employer] threatened to shut off services in your [...] - Maria Del Rosario Cota RN - 05/21/2025 2:17 PM EDT Called pt regarding message, spoke to Niece with pt. Advised results were received but need to be reviewed by PCP. Advised will call back when the results have been reviewed and there are any recommendations or follow up needed. Niece and pt understands and agrees with plan. * Telephone Encounter - Mary Koch - 05/21/2025 11:58 AM EDT TC from pt requesting call back with knee and hip Xray results. PCP NONA Min documented in this encounter Plan of Treatment Upcoming Encounters Date Type Department Care Team (Late st Contact Info) Description 07/05/2025 1:30 PM EST Medication Management [facility] MED & PEDS 505 [place] [address] Yee Bella, Herberth 230 [place] [address] documented as of this encounter Visit Diagnoses Not on filedocumented in this encounter Additional Health Concerns Assessment Noted Time PHQ-9 Depression Total Score: 9 03/28/20 25 11:35 AM EDT documented as of this encounter Care Teams Sales Engineer Engineered Products Relationship Specialty Start Date End Date Princess Min FNP 230 [place] [address] PCP - General Family Medicine 02/10/24 Cherelle Roy Staff Research ScientistXray Tech 01/24/25 Christine Villaseñor Staff Research ScientistXray Tech 04/30/25 documented as of this encounter
--- OUTSIDE RECORDS SUMMARY | 2025-06-04 17:17 | XMS_ITS | Encounter Summary ---
Author Organization [employer] Address 75 [facility] 7t [place] [address] Care Team Providers Care Rattle Leak And Squeak Repairer Name Role Phone Princess Min Primary Care Provider [phone] Princess Min Primary Care Provider [phone] Princess Min Primary Care Provider [phone] Reason for Visit * Reason Onset Date Comments Appointment Request 11/20/2022 Encounter Details Date Type Department Care Team ([facility] st Contact Info) Description 11/20/[address] [facility] MEDICINE [address] [place] [address] Princess Min FNP [address] [place], [place] [phone] Appointment Request Social History Tobacco Use Types [...] to switching program. Please contact pt at [phone] Hungarian Speaker documented in this encounter Plan of Treatment Upcoming Encounters Date Type Department Care Team (Late st Contact Info) Description 07/05/2025 1:30 PM EST Medication Management [facility] MED & PEDS 505 [place] [address] Yee Bella, PharmD 230 [place] [address] documented as of this encounter Visit Diagnoses Not on filedocumented in this encounter Additional Health Concerns Assessment Noted Time PHQ-9 Depression Total Score: 24 023 9:25 AM EDT documented as of this encounter Care Teams Rattle Leak And Squeak Repairer Relationship Specialty Start Date End Date Princess Min FNP 230 [place] [address] PCP - General Family Medicine 03/20/22 12/26/23 Princess Min FNP 230 [place] [address] PCP - General Family Medicine 01/21/24 02/03/24 Princess Min FNP 230 [place] [address] PCP - General Family Medicine 02/10/24 Cherelle Roy Semiconductor EngineerRecord Changer Tester 01/24/25 Christine Villaseñor Semiconductor EngineerRecord Changer Tester 04/30/25 documented as of this encounter
--- OUTSIDE RECORDS SUMMARY | 2025-06-04 17:17 | XMS_ITS | Encounter Summary ---
Author Organization [employer] Address 75 [facility] 7t [place] [address] Care Team Providers Care Wind Tunnel Engineer Name Role Phone Princess Min Primary Care Provider [phone] Princess Min Primary Care Provider [phone] Princess Min Primary Care Provider [phone] Reason for Visit * Reason Comments Med Refill Encounter Details Date Type Department Care Team ([facility] Contact Info) Description 08/11/2022 Refill [facility] MEDICINE [address] [place] [address] Princess Min FNP 505 [place], [place] [phone] Cervical spondylosis Social History Tobacco Use Types [...] Description 07/05/2025 1:30 PM EST Medication Management [facility] CHC MED & PEDS [address] [place], [place] [phone] Yee Bella, PharmD 230 [place] [address] documented as of this encounter Visit Diagnoses Diagnosis Cervical spondylosis Cervical spondylosis without myelopathy documented in this encounter Care Teams Wind Tunnel Engineer Relationship Specialty Start Date End Date Princess Min FNP [address] [place] [address] PCP - General Family Medicine 03/20/22 12/26/23 Princess Min FNP [address] [place] [address] PCP - General Family Medicine 01/21/24 02/03/24 Princess Min FNP [address] [place] [address] PCP - General Family Medicine 02/10/24 Cherelle Roy Machine MaintenanceEmbryology Professor 01/24/25 Christine Villaseñor Machine MaintenanceEmbryology Professor 04/30/25 documented as of this encounter
--- OUTSIDE RECORDS SUMMARY | 2025-06-04 17:17 | XMS_ITS | Encounter Summary ---
Author Organization [employer] Address 75 [facility] 7t [place] [address] Care Team Providers Care Clinical Radiologist Name Role Phone Princess Min Primary Care Provider [phone] Princess Min Primary Care Provider [phone] Princess Min Primary Care Provider [phone] Reason for Visit * Reason Onset Date Comments Appointment Request 08/03/2022 Encounter Details Date Type Department Care Team ([facility] st Contact Info) Description 08/03/2022 Telephone [facility] MEDICINE [address] [place] [address] Princess Min FNP [address] [place], [place] [phone] Appointment Request Social History Tobacco Use Types [...] 12:26 PM EST Returned pt call via P/I#[id number], pt cancelled todays [employer]BBY LOOM WE[employer] appt scheduled 11am. Pt previously cancelled 07/16/22 [employer]BB[employer] LOOM WE[employer]ER RV appt. Attempted to reschedule appt, offered 3 alternate times. 08/04/22, pt stated she will be in [place] for her sisters and back by 5pm. Offered her a time on 08/05/22, pt stated she doesn't know when she will be back. Offered her an appt today, 1 hour from now, beforeshe leaves for [place]. She said she will be long on her way to [place]. Reminded pt that she must attend these appointments to continue to receive her oxycodone script and that per her DOBBY LOOM WEAVER agreement she must come in within 24 hours for a random urine. Pt stated she will call back when she is available to reschedule. Will FYI PCP. * Telephone Encounter - Jareth Cifuentes - 08/03/2022 11:54 AM EST Tc from pt requesting to r/s appt 08/03/22 ( DOBBY LOOM WEAVER RV) pt states not able to come due to a lost in the family. Please contact pt at [phone] documented in this encounter Plan of Treatment Upcoming Encounters Date Type Department Care Team (Late st Contact Info) Description 07/05/2025 1:30 PM EST Medication Management [facility] MED & PEDS 505 [place] [address] Yee Bella, PharmD 230 [place] [address] documented as of this encounter Visit Diagnoses Not on filedocumented in this encounter Care Teams Clinical Radiologist Relationship Specialty Start Date End Date Princess Min FNP [address] [place] [address] PCP - General Family Medicine 03/20/22 12/26/23 Princess Min FNP [address] [place] [address] PCP - General Family Medicine 01/21/24 02/03/24 Princess Min FNP [address] [place] [address] PCP - General Family Medicine 02/10/24 Cherelle Roy Set Up PersonFloor Cashier 01/24/25 Christine Villaseñor Set Up PersonFloor Cashier 04/30/25 documented as of this encounter
--- OUTSIDE RECORDS SUMMARY | 2025-06-04 17:17 | XMS_ITS | Encounter Summary ---
Author Organization [employer] Address 75 [facility] 7t [place] [address] Care Team Providers Care Recruiting Consultant Name Role Phone Princess Min Primary Care Provider Princess Min Primary Care Provider [phone] Reason for Visit * Reason Onset Date Comments PT1 02/03/2024 Encounter Details Date Type Department Care Team (Late st Contact Info) Description 02/03/2024 Telephone [facility] MEDICINE [address] [place] [address] Princess iMn FNP [address] [place], [place] [phone] PT1 Social History Tobacco Use Types Packs/Day [...] Y/N: Yes Provider name or facility name: [facility] Facility Address: [address] [place] [address] Escort needed: Y/N: No Do you have a wheelchair: Y/N: No If yes- Manual or electric: No, but cane. Visits; N/A documented in this encounter Plan of Treatment Upcoming Encounters Date Type Department Care Team (Late st Contact Info) Description 07/05/2025 1:30 PM EST Medication Management [facility] MED & PEDS 505 [place] [address] Yee Bella, PharmD 230 [place] [address] documented as of this encounter Visit Diagnoses Not on filedocumented in this encounter Additional Health Concerns Assessment Noted Time PHQ-9 Depression Total Score: 10 023 10:39 AM EDT documented as of this encounter Care Teams Recruiting Consultant Relationship Specialty Start Date End Date Princess Min FNP 230 [place] [address] PCP - General Family Medicine 01/21/24 02/03/24 Princess Min FNP [address] [place] [address] PCP - General Family Medicine 02/10/24 Cherelle Roy Grain Origination SpecialistSurvey Operations Director 01/24/25 Christine Villaseñor Grain Origination SpecialistSurvey Operations Director 04/30/25 documented as of this encounter
--- OUTSIDE RECORDS SUMMARY | 2025-06-04 17:17 | XMS_ITS | Encounter Summary ---
Author Organization [employer] Address 75 [facility] 7t [place] [address] Care Team Providers Care Technology Professional Name Role Phone Princess Min Primary Care Provider [phone] Princess Min Primary Care Provider Princess Min Primary Care Provider [phone] Reason for Visit * Reason Onset Date Comments PT1 request 10/19/2022 Encounter Details Date Type Department Care Team ([facility] st Contact Info) Description 10/19/2022 Telephone [facility] MEDICINE 230 [place] [address] Princess Min FNP [address] [place], [place] [phone] PT1 request Social History Tobacco Use Types [...] / denial letter via mail. PT-1 Request [id number] Authorized - [facility] PT-1 Request [id number] Pending [facility] Specialty [address] [place] [address] * Telephone Encounter - Alissa Winkler - 10/19/2022 11:55 AM EDT Tc from pt requesting PT1 Location:[facility] Specialty: Provider Date&Time:N/a Gre Tutor: yes Uses cane Location: 10 [facility] Specialty: Orthopedics Date&Time: N/a Gre Tutor: Yes Location:2 [facility] Specialty: [facility] Date&Time:N/a Gre Tutor: yes documented in this encounter Plan of Treatment Upcoming Encounters Date Type Department Care Team (Late st Contact Info) Description 07/05/2025 1:30 PM EST Medication Management [facility] CHC MED & PEDS [address] [place] [address] Yee Bella, GregD [address] [place] [address] documented as of this encounter Visit Diagnoses Not on filedocumented in this encounter Care Teams Technology Professional Relationship Specialty Start Date End Date Princess Min FNP [address] [place] [address] PCP - General Family Medicine 03/20/22 12/26/23 Princess Min FNP [address] [place] [address] PCP - General Family Medicine 01/21/24 02/03/24 Princess Min FNP [address] [place] [address] PCP - General Family Medicine 02/10/24 Cherelle Roy Addictions TherapistCircuit Rider 01/24/25 Christine Villaseñor Addictions TherapistCircuit Rider 04/30/25 documented as of this encounter
--- OUTSIDE RECORDS SUMMARY | 2025-06-04 17:17 | XMS_ITS | Encounter Summary ---
Author Organization [employer] Address 75 [facility] 7t [place] [address] Care Team Providers Care Brine Well Operator Name Role Phone Princess Min Primary Care Provider [phone] Princess Min Primary Care Provider [phone] Reason for Visit * Reason Comments Med Change Request Encounter Details Date Type Department Care Team ([facility] st Contact Info) Description 12/30/2023 Refill [facility] CHC MED & PEDS 505 [place], [place] [phone] Princess Min FNP 505 [place] [address] Social History Tobacco Use Types Packs/Day Years [...] [facility] [address] [place] [address] Yee Bella, PharmD 230 [place] [address] documented as of this encounter Visit Diagnoses Not on filedocumented in this encounter Additional Health Concerns Assessment Noted Time PHQ-9 Depression Total Score: 10 023 10:39 AM EDT documented as of this encounter Care Teams Brine Well Operator Relationship Specialty Start Date End Date Princess Min FNP [address] [place] [address] PCP - General Family Medicine 01/21/24 02/03/24 Princess Min FNP [address] [place] [address] PCP - General Family Medicine 02/10/24 Cherelle Roy Directional Bore OperatorPortfolio Analyst 01/24/25 Christine Villaseñor Directional Bore OperatorPortfolio Analyst 04/30/25 documented as of this encounter
--- OUTSIDE RECORDS SUMMARY | 2025-06-04 17:18 | XMS_ITS | Encounter Summary ---
Author Organization [employer] Address [address] [facility] 7t [place] [address] Care Team Providers Care Technical Proposal Writer Name Role Phone Princess Min Primary Care Provider [phone] Princess Min Primary Care Provider [phone] Princess Min Primary Care Provider [phone] Reason for Visit * Reason Onset Date Comments PT1 04/27/2023 Encounter Details Date Type Department Care Team (Late st Contact Info) Description 04/27/2023 Telephone [facility] MEDICINE 230 [place] [address] Princess Min FNP [address] [place], [place] [phone] PT1 Social History Tobacco Use Types Packs/Day [...] Certification of Serious Illness is ready for pickle cutter at medical records. * Telephone Encounter - Barbie Montanez - 04/28/2023 3:58 PM EDT PT-1 submitted for patient. They will receive a letter of approval or denial in the mail. * Telephone Encounter - Velia Berry - 04/27/2023 4:43 PM EDT Tc form pt requesting PT1 Date: 05/06/23 Time: 10 AM address: [address] [place] [id number] specialty: Psychologist # visits: n/a rework operator: no Wheelchair: no documented in this encounter Plan of Treatment Upcoming Encounters Date Type Department Care Team (Late st Contact Info) Description 07/05/2025 1:30 PM EST Medication Management [facility] MED & PEDS [address] [place] [address] Yee Bella, PharmD 230 [place] [address] documented as of this encounter Visit Diagnoses Not on filedocumented in this encounter Additional Health Concerns Assessment Noted Time PHQ-9 Depression Total Score: 10 023 10:39 AM EDT documented as of this encounter Care Teams Technical Proposal Writer Relationship Specialty Start Date End Date Princess Min FNP [address] [place] [address] PCP - General Family Medicine 03/20/22 12/26/23 Princess Min FNP [address] [place] [address] PCP - General Family Medicine 01/21/24 02/03/24 Princess Min FNP 230 [place] [address] PCP - General Family Medicine 02/10/24 Cherelle Roy Associate Director FinanceExcel Specialist 01/24/25 Christine Villaseñor Associate Director FinanceExcel Specialist 04/30/25 documented as of this encounter
--- OUTSIDE RECORDS SUMMARY | 2025-06-04 17:18 | XMS_ITS | Encounter Summary ---
Author Organization [employer] Address [address] [facility] 7t [place] [address] Care Team Providers Care Superintendent Circus Name Role Phone Princess Min Primary Care Provider [phone] Reason for Visit * Reason Onset Date Comments Nurse Triage 09/27/2024 Encounter Details Date Type Department Care Team ([facility] st Contact Info) Description 09/27/2024 Telephone [facility] MEDICINE [address] [place] [address] Princess Min FNP [address] [place], [place] [phone] Nurse Triage Social History Tobacco Use Types [...] pt to triage, spoke to pt. through [place] supervisor metalizing. pt states went for surgery this morning, [...] distress. given appt with PCP Wednesday in [facility] at 11:15 for exam and recheck. [...] above 300 The caller accepted this outcome. [phone] UKRAINIAN Pt states had knee surgery today but it couldn't be performed because the indicated that the wheezing should be checked first since he didn't know what could be happening with the pt and it couldinteract with the anesthesia. documented in this encounter Plan of Treatment Upcoming Encounters Date Type Department Care Team (Late st Contact Info) Description 07/05/2025 1:30 PM EST Medication Management [facility] MED & PEDS [address] [place] [address] Yee Bella, PharmD 230 [place], [place] [phone] documented as of this encounter Visit Diagnoses Not on filedocumented in this encounter Additional Health Concerns Assessment Noted Time PHQ-9 Depression Total Score: 3 03/03/20 24 11:33 AM EDT documented as of this encounter Care Teams Superintendent Circus Relationship Specialty Start Date End Date Princess Min FNP [address] [place] [address] PCP - General Family Medicine 02/10/24 Cherelle Roy Field Human Resources ManagerElectrical Cad Designer 01/24/25 Christine Villaseñor Field Human Resources ManagerElectrical Cad Designer 04/30/25 documented as of this encounter
--- OUTSIDE RECORDS SUMMARY | 2025-06-04 17:18 | XMS_ITS | Encounter Summary ---
Author Organization [employer] Address [address] [facility] 7t [place] [address] Care Team Providers Care Industrial Safety Engineer Name Role Phone Princess Min Primary Care Provider [phone] Reason for Visit * Reason Onset Date Comments Durable Medical Equipment 09/12/2024 Encounter Details Date Type Department Care Team (Late st Contact Info) Description 09/12/2024 Telephone [facility] MEDICINE [address] [place] [address] Princess Min FNP [address] [place], [place] [phone] Durable Medical Equipment Social History Tobacco Use [...] Description 07/05/2025 1:30 PM EST Medication Management [facility] MED & PEDS [address] [place] [address] Yee Bella, PharmD 230 [place] [address] documented as of this encounter Visit Diagnoses Not on filedocumented in this encounter Additional Health Concerns Assessment Noted Time PHQ-9 Depression Total Score: 3 03/03/20 24 11:33 AM EDT documented as of this encounter Care Teams Industrial Safety Engineer Relationship Specialty Start Date End Date Princess Min FNP [address] [place] [address] PCP - General Family Medicine 02/10/24 Cherelle Roy Marketing Content CoordinatorSpecial Certificate Dictator 01/24/25 Christine Villaseñor Marketing Content CoordinatorSpecial Certificate Dictator 04/30/25 documented as of this encounter
== END 2025-06-04 15:54 | disposition home or self-care (01) ==
LOC: HO.HCS 15:07
PROVIDERS: PCP Registered Nurse; Visit Provider Internal Medicine
DX: I50.9 Heart failure, unspecified (principal)
CPT/HCPCS: 93010; 99204

== ENCOUNTER → 2025-06-04 15:07 | Outpatient (BNVA) | payer MEDICAID, SELFPAY | PROVIDERS: PCP Registered Nurse; Visit Provider Internal Medicine | DX: I50.9 Heart failure, unspecified (principal) | CPT/HCPCS: 93005; 99202 ==

== ENCOUNTER → 2025-07-06 12:47 | Outpatient (REF) | payer MEDICAID, SELFPAY ==
--- NOTE | 2025-07-06 12:50 | CA_ITS ---
Transthoracic Echocardiogram Patient (Last, First, Middle): Argelia Messina, Gender: Female Date of : 1965 Age: 59 Procedure Date: 07/06/2025 Procedure Type: Transthoracic Echocardiogram Location: OP Height: 152.4 cm Weight: 101.61 kg BSA: 1.96 m2 Heart Rate: 61 bpm BP: 122 / 64 mmHg Paper Cup Machine Operator: SB Referring MD: Mustapha Britton MD Legislative Assistant: Ellis Frederick MD Symptoms: I50.9 - Heart failure, unspecified Study Quality: Adequate w contrast/TDS macromastia ECG Rhythm: Sinus Conclusions: - 1. Technically difficult study 2. Normal LV ejection fraction of 60 65% with impaired relaxation filling pattern 3. Cardiac valvular Dopplers within normal limits Findings Procedure Information Contrast agent, definity, is being given per protocol without apparent complications. The quality of the study was technically difficult. The study quality is limited by patients body habitus. Left Ventricle Normal left ventricular size, thickness, and systolic function. The visually estimated ejection fraction is between 60-65%. Spectral Doppler is indicative of an impaired relaxation filling pattern. E/E prime ratio is between 8 and 15 consistent with indeterminate filling pressures. Right Ventricle The right ventricle was not well visualized. Atria The left atrium is normal in size. Interatrial shunt cannot be excluded. The right atrium was not well visualized. Aortic Valve The aortic valve was not well visualized. There is no aortic valve stenosis. There is no aortic valve regurgitation. Mitral Valve Likely normal mitral valve structure and function. There is trace mitral valve regurgitation. There is no mitral valve stenosis. Pulmonic Valve The pulmonic valve was not well visualized. Tricuspid Valve Likely normal tricuspid valve structure and function. Tricuspid regurgitation envelope is inadequate for calculation of right ventricular systolic pressure. Indeterminate right atrial pressure. Great Vessels The aorta was not well visualized. The pulmonary artery was not well visualized. Venous The inferior vena cava was not well visualized. Pericardium/Pleural The pericardium was not well visualized. Prior Study Comparison No prior study available for comparison. Measurements 2D Linear Measurements IVSd: 1.08 0.6-0.9/0.6-1.0 cm LVIDd: 5.25 3.9-5.3/4.2-5.9 cm LVIDd Index: 2.68 2.4-3.2/2.2-3.1 cm/m2 LVIDs: 3.80 2.0-3.6 cm LVPWd: 1.05 0.7-1.1 cm LA Diam: 3.60 2.7-3.8/3.0-4.0 cm LAIDs Index: 1.84 1.5-2.3 cm/m2 LVOT Diam: 2.00 3.0+(-)1.3 cm 2D Systolic Function EF 4C: 69.40 >55% EF 2C: 56.80 >55% EF BiP: 63.60 >55% Mitral Valve MV Pk E: 0.72 MV PK A: 0.77 MV Decel Time: 237.00 E/A: 0.90 E'Lateral: 8.49 E'Medial: 4.35 E/E' Med: 16.60 E/E' Lat: 8.50 PHT: 70.00 MVA PHT: 3.14 Decel Lowndes: 3.03 Aortic Valve AoV Pk Leo: 1.42 AoV Mn Leo: 0.95 AoV VTI: 0.30 AoV Pk Grad: 8.00 Aov Mn Grad: 4.00 HERIBERTO Cont.VTI: 3.08 LVOT LVOT Pk Leo: 1.40 LVOT Mn Leo: 0.98 LVOT VTI: 0.29 LVOT Pk Grad: 8.00 LVOT Mn Grad: 4.00 LVOT Diam: 2.00 LVOT Area: 3.14 Diastolic Function MV Pk E: 0.72 MV Pk A: 0.77 E/A: 0.90 E'Medial: 4.35 E/E' Med: 16.60 E' Laterial: 8.49 E/E' Lat: 8.50 Right Ventricle TAPSE (mm): 23.10 TVS' Leo: 12.00 Great Vessels Aorta Sinus of Valsalva: 3.40 2.0-3.5 cm Ao Asc: 3.40 2.1-3.4 cm Ao Arch: 3.20 Pulmonary Veins Pulm Vein S/D 1.60 Pulmonary Valve PV Pk Elo: 0.87 Peak PV Grad: 3.00 Updated in Other Vendor System with Status of Final Ellis Frederick MD electronically signed on 07/07/2025 12:05:32 PM with status of Final
--- OUTSIDE RECORDS SUMMARY | 2025-07-06 18:24 | XMS_ITS | Encounter Summary ---
Author Organization [employer] Address [address] [facility] 7t [place] [address] Care Team Providers Care Urban Anthropologist Name Role Phone Princess Min Primary Care Provider [phone] Princess Min Primary Care Provider [phone] Princess Min Primary Care Provider [phone] Yee Bella PharmD Unavailable [phone] Reason for Visit * Reason Comments Med Refill Encounter Details Date Type Department Care Team ([facility] Contact Info) Description 08/11/2022 Refill [facility] MEDICINE 230 [place] [address] Princess Min FNP [address] [place], [place] [phone] Cervical spondylosis Social History Tobacco Use Types [...] Department Care Team (Late Contact Info) Description 07/09/2025 2:00 PM EST Medication Management [facility] MED & PEDS [address] [place], [place] [phone] Yee Bella PharmD [address] [place] [address] 07/13/2025 11:00 AM EST Office Visit [facility] MED [facility] PEDS 505 [place] [address] Princess Min FNP 505 [place] [address] documented as of this encounter Visit Diagnoses Diagnosis Cervical spondylosis Cervical spondylosis without myelopathy documented in this encounter Care Teams Urban Anthropologist Relationship Specialty Start Date End Date Princess Min FNP [address] [place] [address] PCP - General Family Medicine 03/20/22 12/26/23 Princess Min FNP [address] [place] [address] PCP - General Family Medicine 01/21/24 02/03/24 Princess Min FNP [address] [place] [address] PCP - General Family Medicine 02/10/24 Yee Bella, GregD [address] [place] [address] Pharmacist Pharmacy 07/05/25 Cherelle Roy Medical Anthropology DirectorFinish Mender 01/24/25 Christine Villaseñor Medical Anthropology DirectorFinish Mender 04/30/25 documented as of this encounter
--- OUTSIDE RECORDS SUMMARY | 2025-07-06 18:24 | XMS_ITS | Encounter Summary ---
Author Organization [employer] Address [address] [facility] 7t [place] [address] Care Team Providers Care Stumper Feller Name Role Phone Princess Min Primary Care Provider [phone] Princess Min Primary Care Provider [phone] Princess Min Primary Care Provider [phone] Yee Bella PharmD Unavailable [phone] Reason for Visit * Reason Onset Date Comments Durable Medical Equipment 11/19/2022 Encounter Details Date Type Department Care Team (Late st Contact Info) Description 11/19/[address] [facility] MEDICINE 230 [place] [address] Princess Min FNP [address] [place], [place] [phone] Durable Medical Equipment Social History Tobacco Use [...] before I couldprovide a referral number to [facility] to process DME. Patient understood and agreed with plan. * Telephone Encounter - Miracle Dickens - 12/08/2022 4:32 PM EDT Tc from pt regarding message below. Pt states [facility] is requesting a PA If any questions please contact pt at [phone] * Telephone Encounter - Barbie Montanez - [...] [facility]. Please contact at [phone] * Telephone Encounter - Barbie Montanez - 11/19/2022 3:16 PM EDT Scripts for shower chair and commode generated for signature * Telephone Encounter - Jareth Cifuentes - 11/19/2022 2:55 PM EDT Tc from pt requesting a script for a commode also a script for a shower chair. To be faxed to [facility] Please contact pt at [phone] documented in this encounter Plan of Treatment Upcoming Encounters Date Type Department Care Team (Late st Contact Info) Description 07/09/2025 2:00 PM EST Medication Management [facility] MED & PEDS 505 [place] [address] Yee Bella PharmD [address] [place] [address] 07/13/2025 11:00 AM EST Office Visit [facility] MED & PEDS 505 [place] [address] Princess Min FNP [address] [place] [address] documented as of this encounter Visit Diagnoses Not on filedocumented in this encounter Additional Health Concerns Assessment Noted Time PHQ-9 Depression Total Score: 24 023 9:25 AM EDT documented as of this encounter Care Teams Stumper Feller Relationship Specialty Start Date End Date Princess Min FNP 230 [place] [address] PCP - General Family Medicine 03/20/22 12/26/23 Princess Min FNP [address] [place] [address] PCP - General Family Medicine 01/21/24 02/03/24 Princess Min FNP 230 [place] [address] PCP - General Family Medicine 02/10/24 Yee Bella, Herberth [address] [place] [address] Pharmacist Pharmacy 07/05/25 Cherelle Roy Community Health EducatorShower Room Attendant 01/24/25 Christine Villaseñor Community Health EducatorShower Room Attendant 04/30/25 documented as of this encounter
--- OUTSIDE RECORDS SUMMARY | 2025-07-06 18:24 | XMS_ITS | Encounter Summary ---
Author Organization [employer] Address [address] [facility] 7t [place] [address] Care Team Providers Care Corporate Staff Accountant Name Role Phone Princess Min Primary Care Provider [phone] Princess Min Primary Care Provider [phone] Princess Min Primary Care Provider [phone] Yee Bella PharmD Unavailable [phone] Reason for Visit * Reason Onset Date Comments Triage 10/19/2022 Encounter Details Date Type Department Care Team ([facility] st Contact Info) Description 10/19/2022 Telephone [facility] MEDICINE 230 [place] [address] Princess Min FNP 505 [place], [place] [phone] Triage Social History Tobacco Use Types Packs/Day [...] EDT Triage call returned to patient via [email or web address] incinerator attendant [id number]. Patient reports only mild wheezing using albuterol [...] become worse * Telephone Encounter - Mayur Marieusman Thomas - 10/19/2022 10:57 AM EDT Symptoms: Wheezing, Cough Outcome: Schedule an urgent appointment (within 1 hour) or talk to a nurse or provider soon Reason: No high acuity concerns reported by caller The caller accepted this outcome Please contact pt at [phone] Amharic speaker documented in this encounter Plan of Treatment Upcoming Encounters Date Type Department Care Team ([facility] st Contact Info) Description 07/09/2025 2:00 PM EST Medication Management [facility] MED & PEDS 505 [place] [address] Yee Bella PharmD 230 [place] [address] 07/13/2025 11:00 AM EST Office Visit [facility] MED & PEDS [address] [place] [address] Princess Min FNP 505 [place] [address] documented as of this encounter Visit Diagnoses Not on filedocumented in this encounter Care Teams Corporate Staff Accountant Relationship Specialty Start Date End Date Princess Min FNP [address] [place] [address] PCP - General Family Medicine 03/20/22 12/26/23 Princess Min FNP [address] [place] [address] PCP - General Family Medicine 01/21/24 02/03/24 Princess Min FNP [address] [place] [address] PCP - General Family Medicine 02/10/24 Yee Bella PharmD [address] [place] [address] Pharmacist Pharmacy 07/05/25 Cherelle Roy Rn FieldHatchery Laborer 01/24/25 Christine Villaseñor Rn FieldHatchery Laborer 04/30/25 documented as of this encounter
--- OUTSIDE RECORDS SUMMARY | 2025-07-06 18:24 | XMS_ITS | Encounter Summary ---
Author Organization [email or web address] Address [address] [facility] 7t [place] [address] Care Team Providers Care Oil Well Directional Surveyor Name Role Phone Princess Min Primary Care Provider [phone] Princess Min Primary Care Provider [phone] Princess Min Primary Care Provider [phone] Yee Bella PharmD Unavailable [phone] Reason for Visit * Reason Comments Med Refill Encounter Details Date Type Department Care Team ([facility] Contact Info) Description 08/07/2022 Refill [facility] MEDICINE [address] [place] [address] Princess Min FNP [address] [place], [place] [phone] Cervical spondylosis Social History Tobacco Use Types [...] Description 07/09/2025 2:00 PM EST Medication Management [facility] MED & PEDS 505 [place], [place] [phone] Yee Bella PharmD [address] [place] [address] 07/13/2025 11:00 AM EST Office Visit [facility] MED & PEDS [address] [place] [address] Princess Min FNP [address] [place] [address] documented as of this encounter Visit Diagnoses Diagnosis Cervical spondylosis Cervical spondylosis without myelopathy documented in this encounter Care Teams Oil Well Directional Surveyor Relationship Specialty Start Date End Date Princess Min FNP [address] [place] [address] PCP - General Family Medicine 03/20/22 12/26/23 Princess Min FNP [address] [place] [address] PCP - General Family Medicine 01/21/24 02/03/24 Princess Min FNP [address] [place] [address] PCP - General Family Medicine 02/10/24 Yee Bella, GregD [address] [place] [address] Pharmacist Pharmacy 07/05/25 Cherelle Roy Rn [employer] Employee Health 01/24/25 Christine Villaseñor Rn [employer] Employee Health 04/30/25 documented as of this encounter
--- OUTSIDE RECORDS SUMMARY | 2025-07-06 18:24 | XMS_ITS | Encounter Summary ---
Author Organization [employer] Address [address] [facility] 7t [place] [address] Care Team Providers Care Assistant Elementary Teacher Name Role Phone Princess Min Primary Care Provider [phone] Princess Min Primary Care Provider [phone] Princess Min Primary Care Provider [phone] Yee Bella PharmD Unavailable [phone] Reason for Visit * Reason Onset Date Comments Referral 11/20/2022 Encounter Details Date Type Department Care Team ([facility] st Contact Info) Description 11/20/2022 Telephone [facility] MEDICINE [address] [place] [address] Princess Min FNP [address] [place], [place] [phone] Referral Social History Tobacco Use Types Packs/Day [...] would like to see Dr Deras at [facility] because of her strong family hx of [...] Specialty: Seth Deras [facility] Location:[address] [place] [address] Dr Dor[address] [place] [address] Date&Time: n/a Helper Teacher: n/a Please call pt to clarify. documented in this encounter Plan of Treatment Upcoming Encounters Date Type Department Care Team (Late st Contact Info) Description 07/09/2025 2:00 PM EST Medication Management [facility] MED & PEDS [address] [place] [address] Yee Bella, PharmD 230 [place] [address] 07/13/2025 11:00 AM EST Office Visit [facility] MED & PEDS 505 [place] [address] Princess Min FNP [address] [place] [address] documented as of this encounter Visit Diagnoses Not on filedocumented in this encounter Additional Health Concerns Assessment Noted Time PHQ-9 Depression Total Score: 24 023 9:25 AM EDT documented as of this encounter Care Teams Assistant Elementary Teacher Relationship Specialty Start Date End Date Princess Min FNP [address] [place] [address] PCP - General Family Medicine 03/20/22 12/26/23 Princess Min FNP [address] [place] [address] PCP - General Family Medicine 01/21/24 02/03/24 Princess Min FNP [address] [place] [address] PCP - General Family Medicine 02/10/24 Yee Bella, PharmD [address] [place] [address] Pharmacist Pharmacy 07/05/25 Cherelle Roy Door ManagerProcess Development Technician 01/24/25 Christine Villaseñor Door ManagerProcess Development Technician 04/30/25 documented as of this encounter
--- OUTSIDE RECORDS SUMMARY | 2025-07-06 18:24 | XMS_ITS | Encounter Summary ---
Author Organization [employer] Address 75 [facility] 7t [place] [address] Care Team Providers Care Shaper Operator Name Role Phone Princess Min BUS BOY Primary Care Provider [phone] Yee Bella PharmD Unavailable [phone] Reason for Referral * Consultation (Routine) - Authorized Specialty Diagnoses / Procedures Referred By Contac t Referred To Contact Pharmacy Diagnoses Type 2 diabetes mellitus with hyperglycemia, with long-term current use of insulin (HCC) Sandy Hanson MD [address] [place] [address] Phone: tel: fax: Referral ID Status Reason Start Date Expiration Date Visits Requested Visits Authorized [id number] Authorized Consult and Treat 07/05/2025 07/05/2026 6 6 Encounter Details Date Type Department Care Team (Late st Contact Info) Description 07/05/2025 Orders Only [facility] MEDICINE [address] [place] [address] Sandy Hanson MD [address] [place], [place] [phone] Type 2 diabetes mellitus with hyperglycemia, with long-term current use of insulin (HCC) (Primary Dx) Social History Tobacco Use Types Packs/Day Years [...] Description 07/09/2025 2:00 PM EST Medication Management [facility] CHC MED & PEDS [address] [place], [place] [phone] Yee Bella, PharmD [address] [place] [address] 07/13/2025 11:00 AM EST Office Visit [facility] MED & PEDS [address] [place] [address] Princess Min, BUS BOY [address] [place] [address] Scheduled Referrals Name Type Priority Associated Diagnoses Orde r Schedule Referral to Pharmacy CDTM Outpatient Referral Routine Type 2 diabetes mellitus with hyperglycemia, with long-term current use of insulin (HCC) Ordered: 07/05/2025 documented as of this encounter Goals Goal Patient Goal Type Associated Problems Recent Progress Patient-Stated? Author Help patients manage their type 2 diabetes Care Plan Help patients manage their type 2 diabetes Sandy Dinero MD Weekly blood pressure task Care Plan Weekly blood pressure task No Sandy Hanson MD Help patients manage their type 2 diabetes Care Plan Help patients manage their type 2 diabetes Sandy Dinero MD Patient has chronic kidney disease Care Plan Patient has chronic kidney disease Sandy Dinero MD Weekly blood pressure task Care Plan Weekly blood pressure task No Sandy Hanson MD Patient has chronic kidney disease Care Plan Patient has chronic kidney disease Sandy Dinero MD Weekly blood pressure task Care Plan Weekly blood pressure task No Yee Bella PharmD Weekly blood pressure task Care Plan Weekly blood pressure task No Yee Bella PharmD Patient has chronic kidney disease Care Plan Patient has chronic kidney disease No Yee Bella PharmD Patient has chronic kidney disease Care Plan Patient has chronic kidney disease No Yee Bella PharmD documented as of this encounter Visit Diagnoses Diagnosis Type 2 diabetes mellitus with hyperglycemia, with long-term current use of insulin (HCC)- Primary documented in this encounter Additional Health Concerns Active Problems Noted Date Diagnosed Date Help patients manage their type 2 diabetes 07/05 Weekly blood pressure task 07/05/2025 Help patients manage their type 2 diabetes 07/05 Patient has chronic kidney disease 07/05/2025 Weekly blood pressure task 07/05/2025 Patient has chronic kidney disease 07/05/2025 Weekly blood pressure task 07/05/2025 Weekly blood pressure task 07/05/2025 Patient has chronic kidney disease 07/05/2025 Patient has chronic kidney disease 07/05/2025 Assessment Noted Time PHQ-9 Depression Total Score: 9 03/28/20 11:35 AM EDT documented as of this encounter Care Teams Shaper Operator Relationship Specialty Start Date End Date Princess Min FNP [address] [place] [address] PCP - General Family Medicine 02/10/24 Yee Bella PharmD [address] [place] [address] Pharmacist Pharmacy 07/05/25 Cherelle Roy Magazine FillerExceptional Children Teacher Assistant 01/24/25 Christine Villaseñor Magazine FillerExceptional Children Teacher Assistant 04/30/25 documented as of this encounter
--- OUTSIDE RECORDS SUMMARY | 2025-07-06 18:24 | XMS_ITS | Encounter Summary ---
Author Organization [employer] Address 75 [facility] 7t [place] [address] Care Team Providers Care Mining Analyst Name Role Phone Princess Min BATH MIX OPERATOR Primary Care Provider [phone] Yee Bella PharmD Unavailable [phone] Encounter Details Date Type Department Care Team (Late st Contact Info) Description 07/05/2025 Telephone [facility] CHC MED & PEDS [address] [place], [place] [phone] Yee Bella, PharmD [address] [place] [address] Social History Tobacco Use Types Packs/Day Years [...] the past 12 months, has t he [employer], gas, oil or water [employer] threatened to shut off services in your [...] encounter Miscellaneous Notes * Telephone Encounter - Yee Bella PharmD - 07/05/2025 12:44 PM EST PCP referred for CDTM. Requesting updated referral from supervising physician per [place] requirements, thank you! documented in this encounter Plan of Treatment Upcoming Encounters Date Type Department Care Team ([facility] st Contact Info) Description 07/09/2025 2:00 PM EST Medication Management [facility] MED & PEDS [address] [place] [address] Yee Bella PharmD [address] [place] [address] 07/13/2025 11:00 AM EST Office Visit [facility] MED & PEDS [address] [place] [address] Princess Min FNP 505 [place] [address] documented as of this encounter Goals Goal [...] Help patients manage their type 2 diabetes No Sandy Hanson MD Patient has chronic [...] filedocumented in this encounter Additional Health Concerns Active [...] documented as of this encounter Care Teams Mining Analyst Relationship Specialty Start Date End Date Princess Min FNP [address] [place] [address] PCP - General Family Medicine 02/10/24 Yee Bella PharmD [address] [place] [address] Pharmacist Pharmacy 07/05/25 Cherelle Roy Drafter SeismographWetlands Technician 01/24/25 Christine Villaseñor Drafter SeismographWetlands Technician 04/30/25 documented as of this encounter
--- OUTSIDE RECORDS SUMMARY | 2025-07-06 18:24 | XMS_ITS | Encounter Summary ---
Author Organization [employer] Address 75 [facility] 7t [place] [address] Care Team Providers Care Student Name Role Phone Princess Min Primary Care Provider [phone] Princess Min Primary Care Provider [phone] Princess Min Primary Care Provider [phone] Yee Bella PharmD Unavailable Reason for Visit * Reason Onset Date Comments PT1 11/20/2022 Encounter Details Date Type Department Care Team (Late st Contact Info) Description 11/20/[address] [facility] MEDICINE [address] [place] [address] Princess Min FNP [address] [place], [place] [phone] PT1 Social History Tobacco Use Types Packs/Day [...] / denial letter via mail. PT-1 Request [id number] Authorized - [facility] Medical [facility] [address] [address] * Telephone Encounter - Mayur Thomas - 11/20/2022 9:19 AM EDT Tc from pt requesting to Renew PT1 for Name of facility: n/a Specialty: All Future appts Location: [address] [place] [address] Date: n/a Time: n/a fax: n/a Phone: n/a wheelchair: n/a Web Database Developer: Yes (Adult) For all future appts documented in this encounter Plan of Treatment Upcoming Encounters Date Type Department Care Team (Late st Contact Info) Description 07/09/2025 2:00 PM EST Medication Management [facility] MED & PEDS [address] [place] [address] Yee Bella, PharmD [address] [place] [address] 07/13/2025 11:00 AM EST Office Visit [facility] MED & PEDS [address] [place] [address] Princess Min FNP [address] [place] [address] documented as of this encounter Visit Diagnoses Not on filedocumented in this encounter Additional Health Concerns Assessment Noted Time PHQ-9 Depression Total Score: 24 023 9:25 AM EDT documented as of this encounter Care Teams Student Relationship Specialty Start Date End Date Princess Min FNP [address] [place] [address] PCP - General Family Medicine 03/20/22 12/26/23 Princess Min FNP [address] [place] [address] PCP - General Family Medicine 01/21/24 02/03/24 Princess Min FNP [address] [place] [address] PCP - General Family Medicine 02/10/24 Yee Bella, GregD [address] [place] [address] Pharmacist Pharmacy 07/05/25 Cherelle Roy Professor Of Environmental StudiesChemical Librarian 01/24/25 Christine Villaseñor Professor Of Environmental StudiesChemical Librarian 04/30/25 documented as of this encounter
--- OUTSIDE RECORDS SUMMARY | 2025-07-06 18:24 | XMS_ITS | Encounter Summary ---
Author Organization [employer] Address [address] [facility] 7t [place] [address] Care Team Providers Care Materials Management Supervisor Name Role Phone Mechelle Princess PARK KEEPER Primary Care Provider [phone] Encounter Details Date Type Department Care Team ([facility] st Contact Info) Description 07/03/2025 Refill [facility] CHC MED & PEDS [address] [place], [place] [phone] Princess Min FNP [address] [place], [place] [phone] Cobalamin deficiency Social History Tobacco Use Types Packs/Day Years [...] Description 07/09/2025 2:00 PM EST Medication Management [facility] MED & PEDS [address] [place] [address] Yee Bella, PharmD 230 [place] [address] 07/13/2025 11:00 AM EST Office Visit [facility] MED & PEDS [address] [place] [address] Princess Min FNP [address] [place] [address] documented as of this encounter Visit Diagnoses Diagnosis Cobalamin deficiency Other B-complex deficiencies documented in this encounter Additional Health Concerns Assessment Noted Time PHQ-9 Depression Total Score: 9 03/28/20 25 11:35 AM EDT documented as of this encounter Care Teams Materials Management Supervisor Relationship Specialty Start Date End Date Princess Min FNP [address] [place] [address] PCP - General Family Medicine 02/10/24 Cherelle Roy Account TechnicianCocoa Mill Operator 01/24/25 Christine Villaseñor Account TechnicianCocoa Mill Operator 04/30/25 documented as of this encounter
--- OUTSIDE RECORDS SUMMARY | 2025-07-06 18:24 | XMS_ITS | Encounter Summary ---
Author Organization [employer] Address 75 [facility] 7t [place] [address] Care Team Providers Care Sound Effects Technician Name Role Phone Princess Min SPACE CONTROL AGENT Primary Care Provider [phone] Yee Bella PharmD Unavailable [phone] Encounter Details Date Type Department Care Team (Latest Contact Info) Description 07/05/2025 Travel Social History Tobacco Use Types Packs/Day [...] 07/09/2025 2:00 PM EST Medication Management [facility] MED & PEDS [address] [place] [address] Yee Bella, PharmD [address] [place] [address] 07/13/2025 11:00 AM EST Office Visit [facility] MED & PEDS [address] [place] [address] Princess Min FNP [address] [place] [address] documented as of this encounter Goals Goal Patient Goal Type Associated Problems Recent Progress Patient-Stated? Author Help patients manage their type 2 diabetes Care Plan Help patients manage their type 2 diabetes No Sandy Hanson MD Weekly blood pressure task Care Plan Weekly blood pressure task No Sandy Hanson MD Help patients manage their type 2 diabetes Care Plan Help patients manage their type 2 diabetes No Sandy Hanson MD Patient has chronic kidney disease Care Plan Patient has chronic kidney disease No Sandy Hanson MD Weekly blood pressure task Care Plan Weekly blood pressure task Sandy Dinero MD Patient has chronic kidney disease Care Plan Patient has chronic kidney disease No Sandy Hanson MD Weekly blood pressure task Care Plan [...] documented as of this encounter Care Teams Sound Effects Technician Relationship Specialty Start Date End Date Princess Min FNP [address] [place] [address] PCP - General Family Medicine 02/10/24 Yee Bella PharmD [address] [place] [address] Pharmacist Pharmacy 07/05/25 Cherelle Roy Test DirectorPoultry Veterinarian 01/24/25 Christine Villaseñor Test DirectorPoultry Veterinarian 04/30/25 documented as of this encounter
--- OUTSIDE RECORDS SUMMARY | 2025-07-06 18:24 | XMS_ITS | Encounter Summary ---
Author Organization [email or web address] Address 75 [facility] 7t [place] [address] Care Team Providers Care Gut Carrier Name Role Phone Princess Min Primary Care Provider [phone] Princess Min Primary Care Provider [phone] Yee Bella PharmD Unavailable Reason for Visit * Reason Comments Med Refill Encounter Details Date Type Department Care Team ([facility] st Contact Info) Description 02/03/2024 Refill [facility] [address] [place] [address] Princess Min FNP [address] [place], [place] [phone] Hypothyroidism, unspecified type Social History Tobacco Use [...] Description 07/09/2025 2:00 PM EST Medication Management [facility] MED & PEDS [address] [place] [address] Yee Bella PharmD [address] [place] [address] 07/13/2025 11:00 AM EST Office Visit [facility] MED & PEDS [address] [place] [address] Princess Min FNP [address] [place] [address] documented as of this encounter Visit Diagnoses Diagnosis Hypothyroidism, unspecified type documented in this encounter Additional Health Concerns Assessment Noted Time PHQ-9 Depression Total Score: 023 10:39 AM EDT documented as of this encounter Care Teams Gut Carrier Relationship Specialty Start Date End Date Princess Min FNP [address] [place] [address] PCP - General Family Medicine 01/21/24 02/03/24 Princess Min FNP [address] [place] [address] PCP - General Family Medicine 02/10/24 Yee Bella PharmD [address] [place] [address] Pharmacist Pharmacy 07/05/25 Cherelle Roy Drugless DoctorNurses' Registry Director 01/24/25 Christine Villaseñor Drugless DoctorNurses' Registry Director 04/30/25 documented as of this encounter
--- OUTSIDE RECORDS SUMMARY | 2025-07-06 18:24 | XMS_ITS | Encounter Summary ---
Author Organization [employer] Address 75 [facility] 7t [place] [address] Care Team Providers Care Housing Management Officer Name Role Phone Princess Min Primary Care Provider [phone] Yee Bella PharmD Unavailable [phone] Reason for Visit * Reason Comments Med Refill Encounter Details Date Type Department Care Team ([facility] st Contact Info) Description 04/25/2024 Refill [facility] MEDICINE [address] [place] [address] Princess Min FNP [address] [place] [address] Social History Tobacco Use Types Packs/Day Years [...] [facility] [address] [place] [address] Yee Bella, PharmD [address] [place] [address] 07/13/2025 11:00 AM EST Office Visit [facility] MED & PEDS [address] [place] [address] Princess Min FNP [address] [place] [address] documented as of this encounter Visit Diagnoses Not on filedocumented in this encounter Additional Health Concerns Assessment Noted Time PHQ-9 Depression Total Score: 3 03/03/20 24 11:33 AM EDT documented as of this encounter Care Teams Housing Management Officer Relationship Specialty Start Date End Date Princess Min FNP [address] [place] [address] PCP - General Family Medicine 02/10/24 Yee Bella, PharmD [address] [place] [address] Pharmacist Pharmacy 07/05/25 Cherelle Roy Obstetrics And Gynecology ProfessorPet Care Technician 01/24/25 Christine Villaseñor Obstetrics And Gynecology ProfessorPet Care Technician 04/30/25 documented as of this encounter
--- OUTSIDE RECORDS SUMMARY | 2025-07-06 18:24 | XMS_ITS | Encounter Summary ---
Author Organization [employer] Address 75 [facility] 7t [place] [address] Care Team Providers Care Brain Wave Technician Name Role Phone Princess Min Primary Care Provider [phone] Princess Min Primary Care Provider [phone] Princess Min Primary Care Provider [phone] Yee Bella PharmD Unavailable Reason for Visit * Reason Onset Date Comments Appointment Request 11/20/2022 Encounter Details Date Type Department Care Team ([facility] st Contact Info) Description 11/20/2022 Telephone [facility] MEDICINE [address] [place] [address] Princess Min FNP [address] [place], [place] [phone] Appointment Request Social History Tobacco Use Types [...] Miscellaneous Notes * Telephone Encounter - Mayur Marieles William - 11/20/2022 9:21 AM EDT Tc from pt requesting an appt with providers in regards to switching program. Please contact pt at [phone] Saudi Arabian Speaker documented in this encounter Plan of Treatment Upcoming Encounters Date Type Department Care Team (Late st Contact Info) Description 07/09/2025 2:00 PM EST Medication Management [facility] MED & PEDS [address] [place] [address] Yee Bella, PharmD 230 [place] [address] 07/13/2025 11:00 AM EST Office Visit [facility] MED & PEDS [address] [place] [address] Princess Min FNP [address] [place] [address] documented as of this encounter Visit Diagnoses Not on filedocumented in this encounter Additional Health Concerns Assessment Noted Time PHQ-9 Depression Total Score: 24 023 9:25 AM EDT documented as of this encounter Care Teams Brain Wave Technician Relationship Specialty Start Date End Date Princess Min FNP [address] [place] [address] PCP - General Family Medicine 03/20/22 12/26/23 Princess Min FNP [address] [place] [address] PCP - General Family Medicine 01/21/24 02/03/24 Princess Min FNP [address] [place] [address] PCP - General Family Medicine 02/10/24 Yee Bella, PharmD [address] [place] [address] Pharmacist Pharmacy 07/05/25 Cherelle Roy Radiologic Technologist MammogramGoat Driver 01/24/25 Christine Villaseñor Radiologic Technologist MammogramGoat Driver 04/30/25 documented as of this encounter
--- OUTSIDE RECORDS SUMMARY | 2025-07-06 18:24 | XMS_ITS | Encounter Summary ---
Author Organization [employer] Address 75 [facility] 7t [place] [address] Care Team Providers Care Grant Writer Name Role Phone Princess Min Primary Care Provider [phone] Yee Bella PharmD Unavailable [phone] Reason for Visit * Reason Comments Med Refill Encounter Details Date Type Department Care Team ([facility] st Contact Info) Description 11/09/2024 Refill [facility] CHC MED & PEDS [address] [place], [place] [phone] Princess Min FNP [address] [place] [address] History of total knee arthroplasty, left Social [...] Description 07/09/2025 2:00 PM EST Medication Management [facility] MED & PEDS [address] [place] [address] Yee Bella, PharmD [address] [place] [address] 07/13/2025 11:00 AM EST Office Visit [facility] MED & PEDS [address] [place] [address] Princess Min FNP [address] [place] [address] documented as of this encounter Visit Diagnoses Diagnosis History of total knee arthroplasty, left documented in this encounter Additional Health Concerns Assessment Noted Time PHQ-9 Depression Total Score: 3 03/03/20 24 11:33 AM EDT documented as of this encounter Care Teams Grant Writer Relationship Specialty Start Date End Date Princess Min FNP [address] [place] [address] PCP - General Family Medicine 02/10/24 Yee Bella, GregD [address] [place] [address] Pharmacist Pharmacy 07/05/25 Cherelle Roy Camera Control OperatorAutomobile Upholsterer 01/24/25 Christine Villaseñor Camera Control OperatorAutomobile Upholsterer 04/30/25 documented as of this encounter
--- OUTSIDE RECORDS SUMMARY | 2025-07-06 18:24 | XMS_ITS | Encounter Summary ---
Author Organization [employer] Address 75 [facility] 7t [place] [address] Care Team Providers Care Profile Saw Setup Operator Name Role Phone Princess Min Primary Care Provider [phone] Yee Bella PharmD Unavailable [phone] Reason for Visit * Reason Onset Date Comments call back with xray results 05/21/2025 Encounter Details Date Type Department Care Team ([facility] st Contact Info) Description 05/21/2025 Telephone [facility] MEDICINE [address] [place] [address] Princess Min FNP [address] [place] [address] call back with xray results Social History [...] PM EST Medication Management [facility] MED & PEDS [address] [place] [address] Yee Bella PharmD [address] [place] [address] 07/13/2025 11:00 AM EST Office Visit [facility] MED & PEDS [address] [place] [address] Princess Min FNP [address] [place] [address] documented as of this encounter Visit Diagnoses Not on filedocumented in this encounter Additional Health Concerns Assessment Noted Time PHQ-9 Depression Total Score: 9 03/28/20 11:35 AM EDT documented as of this encounter Care Teams Profile Saw Setup Operator Relationship Specialty Start Date End Date Princess Mni FNP [address] [place] [address] PCP - General Family Medicine 02/10/24 Yee Bella, PharmD [address] [place] [address] Pharmacist Pharmacy 07/05/25 Cherelle Roy Intelligence ChiefMaintenance Groundskeeper 01/24/25 Christine Villaseñor Intelligence ChiefMaintenance Groundskeeper 04/30/25 documented as of this encounter
--- OUTSIDE RECORDS SUMMARY | 2025-07-06 18:24 | XMS_ITS | Encounter Summary ---
Author Organization [employer] Address 75 [facility] 7t [place] [address] Care Team Providers Care Production Operator Name Role Phone Princess Min Primary Care Provider [phone] Princess Min Primary Care Provider Yee Bella PharmD Unavailable [phone] Reason for Visit * Reason Onset Date Comments New Med Request 02/03/2024 Encounter Details Date Type Department Care Team ([facility] st Contact Info) Description 02/03/2024 Telephone [facility] MEDICINE [address] [place] [address] Princess Min FNP [address] [place], [place] [phone] New Med Request Social History Tobacco Use [...] 2:00 PM EST Medication Management [facility] MED & PEDS [address] [place] [address] Yee Bella, PharmD [address] [place] [address] 07/13/2025 11:00 AM EST Office Visit [facility] MED & PEDS [address] [place] [address] Princess Min FNP [address] [place] [address] documented as of this encounter Visit Diagnoses Not on filedocumented in this encounter Additional Health Concerns Assessment Noted Time PHQ-9 Depression Total Score: 10 023 10:39 AM EDT documented as of this encounter Care Teams Production Operator Relationship Specialty Start Date End Date Princess Min FNP [address] [place] [address] PCP - General Family Medicine 01/21/24 02/03/24 Princess Min FNP [address] [place] [address] PCP - General Family Medicine 02/10/24 Yee Bella PharmD [address] [place] [address] Pharmacist Pharmacy 07/05/25 Cherelle Roy Manager InterventionalAdministrator Health Care Facility 01/24/25 Christine Villaseñor Manager InterventionalAdministrator Health Care Facility 04/30/25 documented as of this encounter
--- OUTSIDE RECORDS SUMMARY | 2025-07-06 18:24 | XMS_ITS | Encounter Summary ---
Author Organization [employer] Address [address] [facility] 7t [place] [address] Care Team Providers Care Cleaner And Dyer Name Role Phone Princess Min Primary Care Provider [phone] Yee Bella PharmD Unavailable [phone] Reason for Visit * Reason Onset Date Comments Med Refill 02/11/2024 Encounter Details Date Type Department Care Team ([facility] st Contact Info) Description 02/11/2024 Telephone [facility] [address] [place] [address] Princess Min FNP [address] [place], [place] [id number] Med Refill Social History Tobacco Use Types [...] 1:02 PM EDT Medication was sent to [facility] on 11/29/23 with 3 refills. * Telephone Encounter - Drake Levy - 02/11/2024 11:57 AM EDT TC from pt requesting medication refill. Medications needing refill : Asmanex HFA 200 MCG/ACT aerosol To be sent to: [facility] - [place], [place] - [address] [facility] documented in this encounter Plan of Treatment Upcoming Encounters Date Type Department Care Team (Late st Contact Info) Description 07/09/2025 2:00 PM EST Medication Management [facility] [address] [place] [address] Yee Bella, PharmD [address] [place] [address] 07/13/2025 11:00 AM EST Office Visit [facility] [address] [place] [address] Princess Min FNP [address] [place] [address] documented as of this encounter Visit Diagnoses Not on filedocumented in this encounter Additional Health Concerns Assessment Noted Time PHQ-9 Depression Total Score: 10 023 10:39 AM EDT documented as of this encounter Care Teams Cleaner And Dyer Relationship Specialty Start Date End Date Princess Min FNP [address] [place] [address] PCP - General Family Medicine 02/10/24 Yee Bella PharmD [address] [place] [address] Pharmacist Pharmacy 07/05/25 Cherelle Roy Cryogenics EngineerPublic Service Administrator 01/24/25 Christine Villaseñor Cryogenics EngineerPublic Service Administrator 04/30/25 documented as of this encounter
--- OUTSIDE RECORDS SUMMARY | 2025-07-06 18:24 | XMS_ITS | Encounter Summary ---
Author Organization [employer] Address [address] [facility] 7[address] [place] [address] Care Team Providers Care Animal Caretaker Supervisor Name Role Phone Princess Min Primary Care Provider [phone] Yee Bella PharmD Unavailable [phone] Reason for Visit * Reason Comments Med Refill Encounter Details Date Type Department Care Team ([facility] st Contact Info) Description 06/07/2025 Refill [facility] [address] [place] [address] Princess Min FNP [address] [place] [address] Pure hypercholesterolemia Social History Tobacco Use Types Packs/Day Years [...] the past 12 months, has t he [employer] gas, oil or water company threatened to [...] Description 07/09/2025 2:00 PM EST Medication Management [facility] [address] [place] [address] Yee Bella, PharmD [address] [place] [address] 07/13/2025 11:00 AM EST Office Visit [facility] [address] [place] [address] Princess Min FNP [address] [place] [address] documented as of this encounter Visit Diagnoses Diagnosis Pure hypercholesterolemia documented in this encounter Additional Health Concerns Assessment Noted Time PHQ-9 Depression Total Score: 9 03/28/20 25 11:35 AM EDT documented as of this encounter Care Teams Animal Caretaker Supervisor Relationship Specialty Start Date End Date Princess iMn FNP [address] [place] [address] PCP - General Family Medicine 02/10/24 Yee Bella, GregD [address] [place] [address] Pharmacist Pharmacy 07/05/25 Cherelle Roy Computer Operations AnalystRegistered Dental Hygienist 01/24/25 Christine Villaseñor Computer Operations AnalystRegistered Dental Hygienist 04/30/25 documented as of this encounter
--- OUTSIDE RECORDS SUMMARY | 2025-07-06 18:24 | XMS_ITS | Encounter Summary ---
Author Organization [employer] Address [address] [facility] [address] [place] [address] Care Team Providers Care Casing Mixer Name Role Phone Princess Min JIG WORKER Primary Care Provider [phone] Yee Bella PharmD Unavailable [phone] Reason for Visit * Reason Comments Pre-visit Planning SDOH completed Encounter Details Date Type Department Care Team ([facility] st Contact Info) Description 07/06/2025 Patient Outreach [facility] [address] [place], [place] [phone] Princess Min FNP [address] [place] [address] Pre-visit Planning (SDOH completed) Social History Tobacco Use Types Packs/Day Years [...] AM EDT documented as of this encounter Progress Notes * Nikki Cifuentes - 07/06/2025 10:52 AM EST MARY ANN Basurto placed successful outbound call to patient for pre-visit planning. Patient name and confirmed. Patient confirms appt date and time, and has transportation arrangements. Biggest concern for appointment at this time is no concerns. Appropriate screenings completed in anticipation ofappointment. documented in this encounter Plan of Treatment Upcoming Encounters Date Type Department Care Team (Late st Contact Info) Description 07/09/2025 2:00 PM EST Medication Management [facility] [address] [place] [address] Yee Bella, PharmD [address] [place], [place] [phone] 07/13/2025 11:00 AM EST Office Visit [facility] [address] [place] [address] Princess Min FNP [address] [place] [address] documented as of this encounter Goals Goal [...] Plan Patient has chronic kidney disease Sandy iDnero MD Weekly blood pressure task Care Plan Weekly blood pressure task No Yee Bella PharmAb Weekly blood pressure task Care Plan Weekly blood pressure task No Yee Bella PharmAb Patient has chronic kidney disease Care Plan [...] as of this encounter Care Teams Casing Mixer Relationship Specialty Start Date End Date Princess Min FNP [address] [place] [address] PCP - General Family Medicine 02/10/24 Yee Bella, GregD [address] [place] [address] Pharmacist Pharmacy 07/05/25 Cherelle Roy Culinary ChefDisaster Response Director 01/24/25 Christine Villaseñor Culinary ChefDisaster Response Director 04/30/25 documented as of this encounter
--- OUTSIDE RECORDS SUMMARY | 2025-07-06 18:24 | XMS_ITS | Encounter Summary ---
Author Organization [employer] Address [address] [facility] [address] [place] [address] Care Team Providers Care Positive Printer Operator Name Role Phone Princess Min Primary Care Provider [phone] Princess Min Primary Care Provider [phone] Princess Min Primary Care Provider [phone] Yee Bella PharmD Unavailable [phone] Reason for Visit * Reason Onset Date Comments Durable Medical Equipment 10/27/2022 Encounter Details Date Type Department Care Team (Late st Contact Info) Description 10/27/2022 Telephone [facility] [address] [place] [address] Princess Min FNP [address] [place], [place] [phone] Durable Medical Equipment Social History Tobacco Use [...] head, script to be send to [facility]. documented in this encounter Plan of Treatment Upcoming Encounters Date Type Department Care Team (Late st Contact Info) Description 07/09/2025 2:00 PM EST Medication Management [facility] [address] [place] [address] Yee Bella, PharmD [address] [place] [address] 07/13/2025 11:00 AM EST Office Visit [facility] [address] [place] [address] Princess Min FNP [address] [place] [address] documented as of this encounter Visit Diagnoses Not on filedocumented in this encounter Care Teams Positive Printer Operator Relationship Specialty Start Date End Date Princess Min FNP [address] [place] [address] PCP - General Family Medicine 03/20/22 12/26/23 Princess Min FNP [address] [place] [address] PCP - General Family Medicine 01/21/24 02/03/24 Princess Min FNP [address] [place] [address] PCP - General Family Medicine 02/10/24 Yee Bella, PharmD [address] [place] [address] Pharmacist Pharmacy 07/05/25 Cherelle Roy Plating StripperTrial Management Associate 01/24/25 Christine Villaseñor Plating StripperTrial Management Associate 04/30/25 documented as of this encounter
--- OUTSIDE RECORDS SUMMARY | 2025-07-06 18:24 | XMS_ITS | Clinical Summary ---
Author Organization [employer] Address [address] [facility] [address] [place] [address] Care Team Providers Care Obstetric Anaesthetist Name Role Phone Princess Min FORENSIC AUDIT EXPERT Primary Care Provider [phone] Yee Bella PharmD Unavailable [phone] Allergies Active Allergy Reactions Criticality Noted Date [...] 0.1 mL into affected nostril(s). 2020 Active fluticasone (Flonase) 50 MCG/ACT nasal sprayIndications:Aller gic rhinitis, unspecified seasonality, unspecified trigger USE 1-2 SPRAYS IN EACH NOSTRIL EVERY DAY NEEDED 48 g 2022 Active loratadine (Claritin) 10 MG tabletIndications:Cecil [...] Use as needed 1 each 2024 Active Ketotifen Fumarate 0.035 % solution [...] MOUTH AT BEDTIME 90 tablet 1 025 11:24 AM EST 2024 Active montelukast (Singulair) 10 MG tablet TAKE 1 TABLET BY MOUTH AT BEDTIME 90 tablet 3 025 11:24 AM EST 2024 Active amitriptyline (Elavil) 50 MG tablet Take 1 tablet (50 mg) by mouth at bedtime. 90 tablet 1 2024 Active Ventolin HFA 108 (90 Base) MCG/ACT inhalerIndications:Mil d persistent asthma without complication INHALE 2 PUFFS BY MOUTH EVERY 4 TO 6 HOURS NEEDED 18 g 11 2024 Active furosemide (Lasix) 20 MG tabletIndications:Make Up Man maria fernanda diastolic heart failure (HCC) TAKE 1 TABLET BY MOUTH EVERY DAY AT NOON 90 tablet 2024 Active empagliflozin (Jardiance) 10 MG Take 1 tablet (10 mg) by mouth Once per day. 90 tablet 1 05/18 Active Diclofenac Sodium (Voltaren Arthritis Pain) 1 % gel Apply 2 g topically 2 times daily. 350 g 2024 Active insulin pen needle (RoombeatstiGOculo Therapy SafePack Pen Needle) 32G x 4 mm miscIndications:Type 2 diabetes mellitus with hyperglycemia, with long-term current use of insulin ([facility]) USE WITH INSULIN DIRECTED 100 each 11 2024 Active TRUEplus Lancets 33G miscIndications:Type 2 diabetes mellitus with hyperglycemia, unspecified whether alf insulin use ([facility]) TEST BLOOD SUGAR TWICE DAILY 100 each 11 2024 Active Blood Glucose Monitoring Suppl (Freebeepay [place] Lite) w/Device kit Use to test blood sugar 3 times daily 1 kit 2024 Active amLODIPine (Norvasc) 5 MG tablet TAKE 1 TABLET BY MOUTH AT BEDTIME 90 tablet 11:24 AM EST 2024 Active pravastatin (Pravachol) 40 MG tabletIndications:Pure hypercholesterolemia Take 1 tablet (40 mg) by mouth at bedtime. (Cholesterol) 90 tablet 3 025 11:24 AM EST 2024 Active lidocaine (Lidoderm) 5 % patchIndications:Arthr itis of knee APPLY 2 PATCHES TOPICALLY TO SKIN, LEAVE ON FOR 12 HOURS AND OFF FOR 12 HOURS DIRECTED (APPLY TO KNEE LEFT AND HIP RIGHT) 60 patch 5 025 3:53 PM EST 2024 Active cyanocobalamin (Vitamin B-12) 1000 MCG tabletIndications:Beto mando deficiency TAKE 1 TABLET BY MOUTH EVERYDAY AT NOON 90 tablet 3 2024 Active Mounjaro 5 MG/0.5ML solution auto-injector INJECT ONE PEN (=5MG) SUBCUTANEOUSLY ONCE A WEEK DIRECTED 2024 Active zolpidem (Ambien) 10 MG tablet Take 10 mg by mouth if needed at bedtime. 2024 Active insulin glargine (Lantus SoloStar) 100 UNIT/ML penIndications:Type 2 diabetes mellitus with hyperglycemia, with long-term current use of insulin ([facility]) Inject 23 Units under the skin at bedtime. 15 mL 1 2024 Active Continuous Glucose Sensor (FreeStyle Olga 3 Plus Sensor) miscIndications:Type 2 diabetes mellitus with hyperglycemia, with long-term current use of insulin ([facility]) 1 each every 15 days. 2 each 025 2:24 PM EST 2024 Active Continuous Glucose Negative Spotter (FreeStyle Olga 3 [place]) deviceIndications:Type 2 diabetes mellitus with hyperglycemia, with long-term current use of insulin ([facility]) 1 each 1 (one) time for 1 dose. 1 each 025 2:24 PM EST 08/05 Active glucose blood (FreeStyle Precision Todd Test) test stripIndications:Type 2 diabetes mellitus with hyperglycemia, with long-term current use of insulin ([facility]) Test blood sugar up to 3 times daily as directed 100 each 11 025 2:24 PM EST 2024 Active Respiratory Therapy Supplies (Nebulizer/Tubing/Mout hpiece) kit Use as needed with albuterol nebulizer solution 1 kit 07/05 Discontinued( Med list cleanup (will not trigger notification to Pharmacy)) Diclofenac Sodium 1 % gel APPLY 2 GRAMS TOPICALLY AFFECTED AREA(S) FOUR TIMES DAILY 200 g 3 07/05 Discontinued( Med list cleanup (will not trigger notification to Pharmacy)) metFORMIN (Glucophage) 500 MG tablet Take 2 tablets by mouth 2 times daily. 07/05 Discontinued( Med list cleanup (will not trigger notification to Pharmacy)) pravastatin (Pravachol) 40 MG tabletIndications:Pure hypercholesterolemia Take 1 tablet (40 mg) by mouth at bedtime. (Cholesterol) 90 tablet 3 06/07 Discontinued( Reorder (will not trigger notification to Pharmacy)) insulin pen needle 32G x 4 mm miscIndications:Type 2 diabetes mellitus without complication, with long-term current use of insulin (HCC) Use as instructed with Victoza injections 100 each 12 06/14 cyanocobalamin (Vitamin B-12) 1000 MCG tabletIndications:Beto mando deficiency TAKE 1 TABLET BY MOUTH EVERYDAY AT NOON 90 tablet 3 07/03 Discontinued( Reorder (will not trigger notification to Pharmacy)) lidocaine (Lidoderm) 5 % patchIndications:Arthr itis of knee APPLY 2 PATCHES TOPICALLY TO AFFECTED AREA(S) OF KNEE LEFT AND HIP RIGHT NEEDED FOR PAIN, LEAVE ON FOR 12 HOURS AND OFF FOR 12 HOURS 60 patch 5 06/20 Discontinued furosemide (Lasix) 20 MG tabletIndications:Make Up Man maria fernanda diastolic heart failure (HCC) TAKE 1 TABLET BY MOUTH EVERY DAY AT NOON 90 tablet 07/05 Discontinued( Duplicate order (will not trigger notification to Pharmacy)) insulin glargine (Lantus SoloStar) 100 UNIT/ML penIndications:Type 2 diabetes mellitus with hyperglycemia, with long-term current use of insulin ([facility]) Inject 28 Units under the skin at bedtime. 15 mL 3 07/05 Discontinued( Reorder (will not trigger notification to Pharmacy)) Tirzepatide (Mounjaro) 5 MG/0.5ML solution auto-injector Inject 5 mg under the skin 1 (one) time per week. 2 mL 1 06/17 glucose blood (FREESTYLE LITE) test stripIndications:Type 2 diabetes mellitus without complication, with long-term current use of insulin ([facility]) Test blood sugar twice daily 100 strip 11 07/05 Discontinued( Alternate therapy) zolpidem (Ambien) 5 MG tablet TAKE 1 TABLET BY MOUTH EVERY DAY AT NIGHT NEEDED 07/05 Discontinued( Med list cleanup (will not trigger notification to Pharmacy)) celecoxib (CeleBREX) 200 MG capsule Take 1 capsule (200 mg) by mouth if needed in the morning and at bedtime (pain). 60 capsule 1 06/22 Active Problems Problem Noted Date Diagnosed Date Stress incontinence 05/07/2025 Assessment & Plan (05/07/2025 3:24 PM EDT): -Received liners -DME request for disposable incont pads placed 05/07/25 Pulmonary nodule 01/08/2025 Overview (01/08/2025): Followed by [facility] [place] [place] Pulm November 2024: Calcified right upper lobe granuloma identified on CT. Plan: repeat 1 year Risk factors: tobacco use Tobacco use 01/08/2025 Overview (01/08/2025): - Cigg/day: 3 - Encouraged smoking cessation resources such as pharmacomtherapy, [facility] smoking cessation group, and [facility] pharmacy smoking cessation clinic - Lung CA screening followed by [facility] [place] [place] Pul - November 2024: Chest CT demonstrated calcified right upper lobe granuloma. Next due: November 2025 History of total knee arthroplasty, left 024 Overview (04/02/2024): 06/09/23 at [facility] [place] [place] - Dr. Laureano Assessment & Plan (01/08/2025 3:10 PM EDT): - Persistent pain with (+) effusion s/p fall at home - XR Feb 2024 in [facility] [place] [place] ED demonstrated increased demineralization along the subjacent proximal tibia, particularly subjacent to the medial flange of the prosthesis with possibile slight medial settling. Large joint effusion. - Apr 2024: Synovasure aspiration left knee by Dr. Laureano. Elevated CRP/sed rate. Joint fluid sent for testing. - Initially scheduled for revision surgery 09/27/24, on hold d/t recommendation for improved asthma control. Following with [facility] [place] [place] Pulm and reports breathing well controlled with current regimen. However, T2DM currently not well controlled - Pain control: APAP prn. Short course of oxycodone 5mg daily prn severe pain (5 tablets total), No refills. Reviewed med safety and SE. Assessment & Plan (10/01/2024 7:35 PM EDT): - Persistent pain with (+) effusion s/p fall at home - XR Feb 2024 in [facility] [place] [place] ED demonstrated increased demineralization along the subjacent proximal tibia, particularly subjacent to the medial flange of the prosthesis with possibile slight medial settling. Large joint effusion. - Apr 2024: Synovasure aspiration left knee by Dr. Laureano. Elevated CRP/sed rate. Joint fluid sent for testing. - Initially scheduled for revision surgery 09/27/24, but not cleared by anaesthesia. Now pending Pulm clearance (referral through [facility] [place] [place] Ortho to [facility] [place] [place] [facility]m) Assessment & Plan (05/28/2024 7:19 AM EST): - Persistent pain with (+) effusion s/p fall at home - XR Feb 2024 in [facility] [place] [place] ED demonstrated increased demineralization along the subjacent [...] use, fewer than expected pills, and multiple [employer] cancellations and NCNS, continue with taper for [...] -Left TKA performed 06/09/[address] Laureano ([facility] [place] [place] Ortho) Assessment & Plan (03/04/2024 6:12 PM [...] without complication 09/08/2017 Overview (01/08/2025): -Following with [facility] [place] [place] pulmonology -Continues with Breo Ellipta 200 mcg [...] although difficulties with insurance coverage. -Spoke with [facility] pharmacy, will attempt to change to generic albuterol to see if works better for pt Diastolic heart failure 02/03/2017 Overview (05/28/2024): -Continues on Irbestartan 300mg daily at bedtime, furosemide 40mg daily, on SGLT2 -[facility] with [facility] - Dr. Calle -Pt denies SOB, swelling in extremities, difficulty breathing Assessment & Plan (01/08/2025 3:08 PM EDT): - reports no longer able to f/up with [facility] d/t NS policy - will refer to [facility] [place] [place] Cards. Reviewed importance of keeping scheduled appts [...] recommendations reviewed -Pt to follow up with [facility] [place] [place] Endo Previous medications: - Ozempic (DC in [...] intolerance, MCKEON, or palpitations -Previously followed by [facility] [place] [place] Endo, pt will call to schedule f/u Lab Results Component Value Date TSH 0.33 04/05/2023 Insomnia 05/27/2016 Trigger finger 05/27/2016 Overview (05/28/2024): Followed by [facility] [place] [place] Ortho PRN Vitamin D deficiency 04/17/2014 Cobalamin deficiency 03/23/2014 Mixed anxiety and depressive disorder 10/06/2013 Assessment & Plan (05/28/2024 7:27 AM EST): -Following with psych team from [facility] -Continue with Wellbutrin 300mg daily, -Denies [...] Encounters Date Type Department Care Team Description 07/06/2025 Patient Outreach [facility] PED[facility] [address] [place] [address] Princess Min FNP Pre-visit Planning (SDOH completed) 07/05/2025 Travel 07/05/2025 Orders Only [facility] MEDIC[facility] [address] [place] [address] Sandy Hanson MD Type 2 diabetes mellitus with hyperglycemia, with long-term current use of insulin (HCC) (Primary Dx) 07/05/2025 Telephone [facility] [address] [place] [address] Yee Bella, Herberth 07/03/2025 Refill [facility] [address] [place] [address] Princess Min FNP Cobalamin deficiency 06/29/2025 Outside Procedure [facility] OPTOMET[facility] [address] [place] [address] Gertrudis Bateman, OD Presbyopia (Primary Dx) 06/26/2025 Orders Only [facility] ADULT DENTAL [address] [place] [address] Artie Gilliland, DMD 06/25/2025 10:00 AM EST Office Visit [facility] [address] [place] [address] Gertrudis Bateman, OD Myopia of both eyes (Primary Dx) 06/25/2025 Travel 06/20/2025 Refill [facility] [address] [place] [address] Princess Min FNP Arthritis of knee 06/07/2025 Refill [facility] [address] [place] [address] Princess Min FNP Pure hypercholesterolemia 06/07/2025 Refill [facility] [address] [place] [address] Princess Min FNP Pure hypercholesterolemia 06/06/2025 Refill [facility] [address] [place] [address] Naomy Aranda MD 05/23/2025 Telephone [facility] [address] [place] [address] Princess Min FNP Nurse Triage 05/21/2025 11:30 AM EDT Office Visit [facility] [address] [place] [address] Fransico, Gertrudis, OD Type 2 diabetes mellitus without complication, with long-term current use of insulin (HCC) (Primary Dx); PCO (posterior capsular opacification), right; Meibomian gland disease of both eyes, unspecified eyelid; Pseudophakia of both eyes; Presbyopia 05/21/2025 Telephone [facility] [address] [place] [address] Princess Min FNP call back with xray results 05/21/2025 Travel 05/20/2025 Orders Only [facility] External Provider, [facility] 05/18/2025 1:45 PM EDT Office Visit [facility] [address], [place] [phone] Miguel Ángel Benavidez MD Injury of left knee, initial encounter (Primary Dx); Type 2 diabetes mellitus without complication, with long-term current use of insulin (HCC); Type 2 diabetes mellitus with hyperglycemia, with long-term current use of insulin (HCC); Left hip pain; Type 2 diabetes mellitus with hyperglycemia, unspecified whether alf insulin use (HCC) 05/18/2025 Travel 05/17/2025 Telephone [facility] [address], [place] [phone] Princess Min FNP Nurse Triage 05/17/2025 Telephone [facility] [address], [place] [phone] Princess Min FNP Letter for School/Work 05/15/2025 Refill [facility] [address] [place] [address] Princess Min FNP 05/14/2025 Refill [facility] [address] [place] [address] Princess Min FNP Chronic diastolic heart failure (HCC) 05/14/2025 Telephone [facility] [address] [place] [address] Princess Min FNP 05/14/2025 Travel 05/14/2025 Refill [facility] [address] [place] [address] Princess Min FNP Chronic diastolic heart failure (HCC) 05/14/2025 Refill [facility] [address], [place] [phone] Corina Pina MD Chronic diastolic heart failure (HCC) 05/09/2025 Results Follow-Up [facility] [address] [place] [address] Princess Min FNP POCT glucose manually resulted, Hemoglobin A1c 05/09/[address] [address] Princess Min FNP Nurse Triage 05/09/2025 Telephone [facility] [address] [place] [address] Princess Min FNP 05/09/2025 Telephone [facility] [address], [place] [phone] Princess Min FNP 05/07/2025 10:15 AM EDT Office Visit [facility] [address] [place] [address] Princess Min FNP Type 2 diabetes mellitus without complication, with long-term current use of insulin (HCC) (Primary Dx); Moderate persistent asthma without complication; Routine health maintenance; Stress incontinence 05/07/2025 Travel 05/04/2025 Telephone [facility] [address], [place] [phone] Princess Min FNP Chart Prep 04/30/2025 Telephone [facility] [address] [place], [place] [phone] Princess Min FNP Care Coordination (CP Care Plan) 04/24/2025 9:40 AM EDT Office Visit [facility] OPTOMET[facility] [address] [place] [address] Fransico, Gertrudis, OD Type 2 diabetes mellitus without complication, with long-term current use of insulin ([facility]) (Primary Dx) 04/24/2025 Travel 04/24/2025 Refill [facility] [address], [place] [phone] Princess Min FNP Mild persistent asthma without complication 04/20/2025 Travel 04/17/2025 Refill [facility] PEDS [address] [place] [address] Princess Min FNP Type 2 diabetes mellitus with hyperglycemia, with long-term current use of insulin ([facility]) 04/13/2025 Refill [facility] [address], [place] [phone] Princess Min FNP from Last 3 Months [...] Sign Reading Time Taken Comments Blood Pressure 126/66 07/05/2025 1:59 PM EST Pulse 72 07/05/2025 1:59 PM EST Temperature 36.3 C (97.4 F) 05/18/2025 2:26 PM EDT Respiratory Rate 20 05/18/2025 2:26 PM EDT Oxygen Saturation 99% 07/05/2025 1:59 PM EST Inhaled Oxygen Concentration - - Weight 103 kg (226 lb) 05/18/2025 2:26 PM EDT Height 154.9 cm (5' 1 ) 05/18/2025 2:26 PM EDT Body Mass Index 42.7 05/18/2025 2:26 PM EDT Plan of Treatment Upcoming Encounters Date Type Department Care Team (Late st Contact Info) Description 07/09/2025 2:00 PM EST Medication Management [facility] [address] [place] [address] Yee Bella, PharmD [address] [place] [address] 07/13/2025 11:00 AM EST Office Visit [facility] [address] [place] [address] Princess Min FNP [address] [place], [place] [phone] Health Maintenance Due Date Last Done Comments CT Colonography 1963 Dental Oral Exam 1963 Dental Prophylaxis 1963 Dental X-Ray: Bitewings 1963 FIT DNA/Cologuard 1963 FIT 1963 FOBT 1963 Sigmoidoscopy 1963 Disability Screening 1963 Diabetes: Foot Exam 1973 Pap Smear 1984 HPV/Cotest 1993 Dental X-Ray: Full Mouth 02/09/2024 02/07/2021 Mammogram 02/10/2024 02/09/2023, 02/08/2019 Diabetes: Hemoglobin A1C 08/07/2025 025, 03/28/2025, 01/05/2025, Additional history exists Diabetes: Urine Protein Screening 09/18/2025 09/18/2024, 12/21/2023, 04/05/2023, Additional history exists Lipid Panel 09/18/2025 09/18/2024, [...] on patient's age to complete this topic Goals Goal Patient Goal Type Associated Problems [...] chronic kidney disease No Yee Bella PharmD Procedures Procedure Name Priority Date/Time Associated Diagnosis Comments XR KNEE 3 VIEWS LEFT Routine 05/20/2025 4:26 PM EDT XR HIP 2 OR 3 VIEWS LEFT Routine 05/20/2025 4:25 PM EDT POCT GLUCOSE Routine 05/18/2025 2:27 PM EDT Type 2 diabetes mellitus without complication, with long-term current use of insulin (HCC) HEMOGLOBIN A1C Routine 05/07/2025 11:39 AM EDT Type 2 diabetes mellitus without complication, with long-term current use of insulin (HCC) POCT GLUCOSE Routine 05/07/2025 10:56 AM EDT Type 2 diabetes mellitus without complication, with long-term current use of insulin (HCC) ALBUMIN, RANDOM URINE W/CREATININE Routine 09/18/2024 11:31 [...] Laterality Modality Lower Extremities, Knee [facility] 05/20/2025 4:26 PM EDT Narrative 05/20/2025 4:28 PM EDT [address] [address] XRay Report Signed Patient: Argelia Messina MR#: [id number] : 1965 Acct:[id number] Age/Sex: 59 / F ADM Date: 05/20/25 Loc: HO.ED Attending Dr: Ordering Physician: Cynthia Sandoval NP Date of Service: 05/20/25 Procedure(s): XR knee LT 3V Accession Number(s): [id number] cc: Cynthia Sandoval NP; Princess Min FORENSIC AUDIT EXPERT Reason for Exam: fall,. pain CLINICAL HISTORY: fall,. pain 4 view left knee Comparison: DX/LA/SR - XR KNEE 3 VIEWS LEFT - [...] signed by Sanjuana Haider MD in OV> 05/20/25 1627 DD/ 162 TD/TT: 05/20/25 162 Coding Compliance Specialist: Procedure Note Donotuseinterpreter, Image - 05/20/2025 [place] [address] XRay Report Signed Patient: Brennon MessinaR#: [id number] : 1965Acct:[id number] Age/Sex: 59 / FADM Date: 05/20/25 Loc: HO.ED Attending Dr: Ordering Physician: Cynthia Sandoval NP Date of Service: 05/20/25 Procedure(s): XR knee LT 3V Accession Number(s): [id number] cc: Cynthia Sandoval NP; Princess Min FORENSIC AUDIT EXPERT Reason for Exam: fall,. pain CLINICAL HISTORY: fall,. pain 4 view left knee Comparison: DX/LA/SR - XR KNEE 3 VIEWS LEFT - [...] in OV> 05/20/251626 DD/ 25 TD/TT: 05/20/251625 Coding Compliance Specialist: [facility] External Provider IMG XR PROCEDURES Edited Result - Final * XR Hip 2 or 3 Views Left (05/20/2025 4:25 PM EDT) Anatomical Region Laterality Modality Lower Extremities, Hip Left Radiograp hic Imaging 05/20/2025 4:25 PM EDT Narrative 05/20/2025 4:27 PM EDT [place] [address] XRay Report Signed Patient: Argelia Messina MR#: [id number] : 1965 Acct:[id number] Age/Sex: 59 / F ADM Date: 05/20/25 Loc: HO.ED Attending Dr: Ordering Physician: Cynthia Sandoval NP Date of Service: 05/20/25 Procedure(s): XR hip LT min 2V Accession Number(s): [id number] cc: Cynthia Sandoval NP; Princess Min Reason for Exam: fall, pain [...] in OV> 05/20/251625 DD/ 24 TD/TT: 05/20/251624 Coding Compliance Specialist: Procedure Note Donotuseinterpreter, Image - 05/20/[address] [address] XRay Report Signed Patient: Nini Messina#: [id number] : 1965Acct:[id number] Age/Sex: 59 / FADM Date: 05/20/25 Loc: HO.ED Attending Dr: Ordering Physician: Cynthia Sandoval NP Date of Service: 05/20/25 Procedure(s): XR hip LT min 2V Accession Number(s): [id number] cc: Cynthia Sandoval PRE CERTIFICATION SPECIALIST; Princess Min FORENSIC AUDIT EXPERT Reason for Exam: fall, pain CLINICAL HISTORY: [...] in OV> 05/20/251625 DD/ 24 TD/TT: 05/20/251624 Coding Compliance Specialist: [facility] External Provider IMG XR PROCEDURES Edited Result - Final * (ABNORMAL) POCT Glucose (05/18/2025 2:27 PM EDT) Only the most recent of2 resultswithin the time period is included. Glucose Blood, POC 500(A) 60 - 200 mg/dL Comment:[facility] QC Media Lot # [id number] Lot# Expiration Date Blood Capillary blood specimen / Unknown 05/18/2025 2:27 PM EDT Miguel Ángel Archuleta MD POINT OF CARE TEST ENTER/EDIT ORDERABLES Final Result * (ABNORMAL) Hemoglobin A1c (05/07/2025 11:39 AM EDT) Hemoglobin A1c 9.2(H) <6.0 % [facility] Comment:Hemoglobin A1C Refer ence Range Adults: 4.8 - 6.0 % Non diabetic: < 6.0 % Goal: < 7.0 %Additional Action Suggested: > 8.0 %Note: Hemoglobin A1c results are invalid for patients with abnormal amounts of HbF. Blood transfusions may impact the HbA1c concentration in the patient sample. Estimated Average Glucose 217 mg/dL [facility] Comment:eAG = Estimated ave rage glucose which is %A1C expressed asaverage glucose, using the formula of the F4O-NsugzsfOoblqqh Glucose study (ADAG), Diabetes Care, Vol.31,#8,Feb. 2007 Blood Venous blood specimen / Unknown 05/07/2025 11:39 AM EDT 05/07/2025 2:14 PM EDT us Princess Min FORENSIC AUDIT EXPERT LAB BLOOD ORDERABLES Final Res ult [facility] [address] [place] [phone] * Albumin, Random Urine W/Creatinine (09/18/2024 11:31 AM EST) Creatinine, Urine 65.49 mg/dL [facility] Microalbumin Urine 8.0 mg/L [facility] Microalbum Creatinine Ratio Ur 12.2 <30 ug/mg cr [facility] Comment:Albumin/Creatinine R atio Reference Ranges: Normal: < 30 ug/mg creatinine Microalbuminuria: 30 - 300 ug/mg creatinineClinical Albuminuria: > 300 ug/mg creatinine Urine 09/18/2024 11:3 1 AM EST 09/18/2024 2:41 PM EST Princess Min [facility] URINE ORDERABLES Final Res ult Performing Organization Address [facility] de Phone Number [facility] [address] [place] [phone] * Hepatitis C Viral RNA, Quantitative, Real-Time PCR (09/18/2024 11:22 AM EST) Pathologist [facility] Hepatitis C Viral Load <15 NOT DETECTED NOT DETECTED IU/mL [facility] HCV Log PCR <1.18 NOT DETECTED NOT DETECTED Log IU/mL [facility] Comment:For additional infor matmayela, please refer tohttp://education.Magikflix/faq/ILI51b6(This link is being provided for informational/educational purposes only.)THIS TEST WAS PERFORMED AT:[employer] [place] [id number] GARCIA MD Blood 09/18/2024 11:2 2 AM EST 09/18/2024 2:41 PM EST Princess Min [facility] BLOOD ORDERABLES Final Res ult Performing Organization Address [facility] de Phone Number [facility] [address] [place] [phone] * HIV-1/2 Antigen and Antibodies, Fourth Generation, with Reflexes (09/18/2024 11:22 AM EST) Pathologist [facility] HIV AB/AG Nonreactive Nonreactive [facility] Comment:HIV-1 p24 Ag and/or HIV-1/HIV-2 Ab not detected.A test result that is nonreactive does not exclude thepossibility of exposure to or infection with HIV-1 and/orHIV-2. Nonreactive results in this assay for individualswith prior exposure to HIV-1 and/or HIV-2 may be due toantigen and antibody levels that are below the limit ofdetection of this assay.The [facility] HIV Ag/Ab Combo assay result andsupplemental assay results should be interpreted inconjunction with the patient's clinical presentation,history and other laboratory results. If the results areinconsistent with clinical evidence, additional testing issuggested to confirm the result. Blood Venous blood specimen / Unknown 09/18/2024 11:22 AM EST 09/18/2024 2:41 PM EST us Princess Min [employer] A[employer] LAB BLOOD ORDERABLES Final Res ult [facility] [address] [place] [phone] * Lipid Panel, Standard (09/18/2024 11:02 AM EST) Triglycerides 136 <150 mg/dL [facility] Comment:Desirable Triglyceri de: less than 150 mg/dLBorderline High Triglyceride 150-199 mg/dLHigh Triglyceride: 200-499 mg/dLVery High Triglyceride: greater than or equal to 5OO mg/dL Cholesterol 156 <200 mg/dL [facility] Comment:Desirable Cholestero l: less than 200 mg/dLBorderline High Cholesterol: 200-239 mg/dLHigh Cholesterol: greater than 239 mg/dL LDL Cholesterol Calculated 75 <100 mg/dL [facility] Comment:Desirable LDL: less than 100 mg/dLNear Optimal/Above Optimal LDL: 110- 129 mg/dLBorderline High LDL: 130-159 mg/dLHigh LDL: 160-189 mg/dLVery High LDL: greater than or equal to 190 mg/dL HDL Cholesterol 54 >40 mg/dL [facility] Comment:Desirable HDL: great er than 40 mg/dL Note: This HDL assay may give artificially low results in patients with liver disease. Blood Venous blood specimen / Unknown 09/18/2024 11:02 AM EST 09/18/2024 2:41 PM EST us Princess Min FORENSIC AUDIT EXPERT LAB BLOOD ORDERABLES Final Res ult [facility] [address] [place] [address] [phone] * BI Mammogram Screening Tomosynthesis Bilateral (02/09/2023 11:07 AM EDT) Anatomical Region Laterality Modality Breast Bilateral Mammography 02/09/2023 11:0 7 AM EDT Narrative 03/05/2023 6:25 AM EDT [address] [place] [address] Mammography Report Signed Patient: Argelia Messina MR#: [id number] : 1965 Acct:[id number] Age/Sex: 57 / F ADM Date: 02/09/23 Loc: HO.MAMMO Attending Dr: Princess Min FORENSIC AUDIT EXPERT Ordering Physician: Princess Min Results: Date of Service: 02/09/23 Follow Up: Procedure(s): MM tomosynthesis screening BI Accession Number(s): [id number] cc: Princess Min EXAMINATION: MM SCREENING DIGITAL [...] MD in OV> 03/05/23622 DD/ 1107 TD/TT: Coding Compliance Specialist: Procedure Note Donotuseinterpreter, Image - 03/05/2023 Jeff [facility] [address] [place], [place] [address] Mammography Report Signed Patient: Nini Messina#: [id number] : 1965Acct:[id number] Age/Sex: 57 / FADM Date: 02/09/23 Loc: HO.MAMMO Attending Dr: Princess Min FORENSIC AUDIT EXPERT Ordering Physician: Princess MinPResults: Date of Service: 02/09/23Follow Up: Procedure(s): MM tomosynthesis screening BI Accession Number(s): [id number] cc: Princess Min EXAMINATION: MM SCREENING DIGITAL [...] in OV> 03/05/23 0623 DD/ 1107 TD/TT: Coding Compliance Specialist: Princess Min FORENSIC AUDIT EXPERT IMG BI PROCEDURES Final Result * Hm Colonoscopy (05/24/2017) Colonoscopy Normal Normal Historical Provider MD HEALTH MAINTENANCE Final Result from Last 3 Months or Most Recently Relevant to Health Maintenance Additional Health Concerns Active Problems Noted Date [...] 07/05/2025 Patient has chronic kidney disease 07/05/2025 Insurance [facility] C3 DENTAL-[facility] MEDICAID STAND ADULT Care Teams Obstetric Anaesthetist Relationship Specialty Start Date End Date Princess Min FNP [address] [place] [address] PCP - General Family Medicine 02/10/24 Yee Bella PharmD [address] [place] [address] Pharmacist Pharmacy 07/05/25 Cherelle Roy Beam WorkerDirector Of Rooms 01/24/25 Christine Villaseñor Beam WorkerDirector Of Rooms 04/30/25
--- OUTSIDE RECORDS SUMMARY | 2025-07-06 18:24 | XMS_ITS | Encounter Summary ---
Author Organization [employer] Address [address] [facility] 7t [place] [address] Care Team Providers Care Hematology Specialist Name Role Phone Princess Min Primary Care Provider [phone] Princess Min Primary Care Provider [phone] Princess Min Primary Care Provider [phone] Yee Bella PharmD Unavailable [phone] Reason for Referral * Imaging (Routine) - Closed Specialty Diagnoses / Procedures Referred By Elaina melendez Referred To Contact Diagnoses Encounter for screening mammogram for malignant neoplasm of breast Procedures BI Mammogram Screening Bilateral Princess Min FNP [address] [place] [address] Phone: tel: fax: [facility] [address] [place] [phone] Phone: tel: fax: Referral ID Status Reason Start Date Expiration Date Visits Re quested Visits Authorized [id number] Closed 11/23/2022 05/22/2023 1 1 Reason for Visit * Reason Onset Date Comments Referral 11/20/2022 Encounter Details Date Type Department Care Team ([facility] st Contact Info) Description 11/20/2022 Telephone [facility] MEDICINE [address] [place] [address] Princess Min FNP [address] [place] [address] Referral Social History Tobacco Use Types Packs/Day [...] EDT Please fax order for mammo to [facility] and call to let Ms. Garcia know when completed. Thank you. * Telephone Encounter - Alissa Winkler - 11/20/2022 10:16 AM EDT Tc from pt requesting a mammogram referral . Location [facility]. documented in this encounter Plan of Treatment Upcoming Encounters Date Type Department Care Team ([facility] st Contact Info) Description 07/09/2025 2:00 PM EST Medication Management [facility] MED & PEDS [address] [place] [address] Yee Bella, GregD [address] [place] [address] 07/13/2025 11:00 AM EST Office Visit [facility] MED & PEDS [address] [place] [address] Princess Min FNP [address] [place] [address] Scheduled Orders Name Type Priority Associated Diagnoses [...] documented as of this encounter Care Teams Hematology Specialist Relationship Specialty Start Date End Date Princess Min FNP [address] [place] [address] PCP - General Family Medicine 03/20/22 12/26/23 Princess Min FNP [address] [place] [address] PCP - General Family Medicine 01/21/24 02/03/24 Princess Min FNP [address] [place] [address] PCP - General Family Medicine 02/10/24 Yee Bella PharmD [address] [place] [address] Pharmacist Pharmacy 07/05/25 Cherelle Roy Public Space AttendantMed Admin 01/24/25 Christine Villaseñor Public Space AttendantMed Admin 04/30/25 documented as of this encounter
--- OUTSIDE RECORDS SUMMARY | 2025-07-06 18:24 | XMS_ITS | Encounter Summary ---
Author Organization [email or web address] Address [address] [facility] 7t [place] [address] Care Team Providers Care Rock Breaker Name Role Phone Princess Min Primary Care Provider [phone] Princess Min Primary Care Provider Yee Bella PharmD Unavailable [phone] Reason for Visit * Reason Onset Date Comments PT1 02/03/2024 Encounter Details Date Type Department Care Team (Late st Contact Info) Description 02/03/2024 Telephone [facility] MEDICINE [address] [place] [address] Princess Min FNP [address] [place], [place] [phone] PT1 Social History Tobacco Use Types Packs/Day [...] Y/N: Yes Provider name or facility name: [facility] Facility Address: [address] [place] [address] Escort needed: Y/N: No Do you have a wheelchair: Y/N: No If yes- Manual or electric: No, but cane. Visits; N/A documented in this encounter Plan of Treatment Upcoming Encounters Date Type Department Care Team (Late st Contact Info) Description 07/09/2025 2:00 PM EST Medication Management [facility] MED & PEDS [address] [place] [address] Yee Bella, GregD [address] [place] [address] 07/13/2025 11:00 AM EST Office Visit [facility] MED & PEDS [address] [place] [address] Princess Min FNP [address] [place] [address] documented as of this encounter Visit Diagnoses Not on filedocumented in this encounter Additional Health Concerns Assessment Noted Time PHQ-9 Depression Total Score: 10 023 10:39 AM EDT documented as of this encounter Care Teams Rock Breaker Relationship Specialty Start Date End Date Princess Min FNP [address] [place] [address] PCP - General Family Medicine 01/21/24 02/03/24 Princess Min FNP [address] [place] [address] PCP - General Family Medicine 02/10/24 Yee Bella, GregD [address] [place] [address] Pharmacist Pharmacy 07/05/25 Cherelle Roy Lining FellerBridge Painter 01/24/25 Christine Villaseñor Lining FellerBridge Painter 04/30/25 documented as of this encounter
--- OUTSIDE RECORDS SUMMARY | 2025-07-06 18:24 | XMS_ITS | Encounter Summary ---
Author Organization [employer] Address [address] [facility] 7t [place] [address] Care Team Providers Care Block And Case Maker Name Role Phone Princess Min Primary Care Provider [phone] Princess Min Primary Care Provider [phone] Princess Min Primary Care Provider [phone] Yee Bella PharmD Unavailable [phone] Reason for Visit * Reason Onset Date Comments PT1 request 10/19/2022 Encounter Details Date Type Department Care Team (Late st Contact Info) Description 10/19/2022 Telephone [facility] MEDICINE [address] [place] [address] Princess Min FNP [address] [place], [place] [phone] PT1 request Social History Tobacco Use Types [...] / denial letter via mail. PT-1 Request [id number] Authorized - [facility] PT-1 Request [id number] Pending [facility] [place] [address] [place] [address] * Telephone Encounter - Alissa Winkler - 10/19/2022 11:55 AM EDT Tc from pt requesting PT1 Location:[facility] Specialty: Provider Date&Time:N/a Plate [place] Mill Hand: yes Uses cane Location: [facility] Specialty: Orthopedics Date&Time: N/a [place] Hand: Yes Location:[facility] Specialty: [facility] Date&Time:N/a Plate [place] Hand: yes documented in this encounter Plan of Treatment Upcoming Encounters Date Type Department Care Team (Late st Contact Info) Description 07/09/2025 2:00 PM EST Medication Management [facility] MED & PEDS [address] [place] [address] Yee Bella, PharmD [address] [place] [address] 07/13/2025 11:00 AM EST Office Visit [facility] MED & PEDS [address] [place] [address] Princess Min FNP [address] [place] [address] documented as of this encounter Visit Diagnoses Not on filedocumented in this encounter Care Teams Block And Case Maker Relationship Specialty Start Date End Date Princess Min FNP [address] [place] [address] PCP - General Family Medicine 03/20/22 12/26/23 Princess Min FNP [address] [place] [address] PCP - General Family Medicine 01/21/24 02/03/24 Princess Min FNP [address] [place] [address] PCP - General Family Medicine 02/10/24 Yee Bella, GregD [address] [place] [address] Pharmacist Pharmacy 07/05/25 Cherelle Roy Laborer WharfMaternal Child Nurse 01/24/25 Christine Villaseñor Laborer WharfMaternal Child Nurse 04/30/25 documented as of this encounter
--- OUTSIDE RECORDS SUMMARY | 2025-07-06 18:25 | XMS_ITS | Encounter Summary ---
Author Organization [employer] Address [address] [facility] 7t [place] [address] Care Team Providers Care Manager Of Tires Sales Name Role Phone Princess Min Primary Care Provider [phone] Yee Bella PharmD Unavailable [phone] Reason for Visit * Reason Onset Date Comments FYI 07/13/2024 Encounter Details Date Type Department Care Team ([facility] st Contact Info) Description 07/13/2024 Telephone [facility] MEDICINE [address] [place] [address] Princess Min FNP [address] [place] [address] FYI Social History Tobacco Use Types Packs/Day [...] [facility] MED & PEDS [address] [place] [address] Yee Bella, PharmD [address] [place] [address] 07/13/2025 11:00 AM EST Office Visit [facility] MED & PEDS [address] [place] [address] Princess Min FNP [address] [place] [address] documented as of this encounter Visit Diagnoses Not on filedocumented in this encounter Additional Health Concerns Assessment Noted Time PHQ-9 Depression Total Score: 3 03/03/20 24 11:33 AM EDT documented as of this encounter Care Teams Manager Of Tires Sales Relationship Specialty Start Date End Date Princess Min FNP [address] [place] [address] PCP - General Family Medicine 02/10/24 Yee Bella PharmD [address] [place] [address] Pharmacist Pharmacy 07/05/25 Cherelle Roy Inbound Call Center RepresentativeEndless Belt Finisher 01/24/25 Christine Villaseñor Inbound Call Center RepresentativeEndless Belt Finisher 04/30/25 documented as of this encounter
--- OUTSIDE RECORDS SUMMARY | 2025-07-06 18:25 | XMS_ITS | Encounter Summary ---
Author Organization [employer] Address [address] [facility] 7t [place] [address] Care Team Providers Care Hydrologist Name Role Phone Princess Min MACHINE TANK OPERATOR Primary Care Provider [phone] Yee Bella PharmD Unavailable [phone] Reason for Visit * Reason Onset Date Comments Letter for School/Work 05/17/2025 Encounter Details Date Type Department Care Team ([facility] Contact Info) Description 05/17/2025 Telephone [facility] MED & PEDS [address] [place], [place] [phone] Princess Min FNP [address] [place], [place] [phone] Letter for School/Work Social History Tobacco Use [...] letter. Call was disconnected. Contact pt at [phone] documented in this encounter Plan of Treatment Upcoming Encounters Date Type Department Care Team (Late st Contact Info) Description 07/09/2025 2:00 PM EST Medication Management [facility] MED & PEDS [address] [place] [address] Yee Bella, PharmD [address] [place] [address] 07/13/2025 11:00 AM EST Office Visit [facility] MED & PEDS [address] [place] [address] Princess Min FNP [address] [place] [address] documented as of this encounter Visit Diagnoses Not on filedocumented in this encounter Additional Health Concerns Assessment Noted Time PHQ-9 Depression Total Score: 9 03/28/20 25 11:35 AM EDT documented as of this encounter Care Teams Hydrologist Relationship Specialty Start Date End Date Princess Min FNP [address] [place] [address] PCP - General Family Medicine 02/10/24 Yee Bella, [place]berth [address] [place] [address] Pharmacist Pharmacy 07/05/25 Cherelle Roy Parimutuel CashierAssembler Truck Trailer 01/24/25 Christine Villaseñor Parimutuel CashierAssembler Truck Trailer 04/30/25 documented as of this encounter
--- OUTSIDE RECORDS SUMMARY | 2025-07-06 18:25 | XMS_ITS | Encounter Summary ---
Author Organization [employer] Address [address] [facility] 7t [place] [address] Care Team Providers Care Analytics Leader Name Role Phone Princess Min Primary Care Provider [phone] Princess Min Primary Care Provider [phone] Princess Min Primary Care Provider Yee Bella PharmD Unavailable [phone] Reason for Visit * Reason Onset Date Comments Appointment Request 08/03/2022 Encounter Details Date Type Department Care Team ([facility] st Contact Info) Description 08/03/2022 Telephone [facility] MEDICINE [address] [place] [address] Princess Min FNP [address] [place], [place] [phone] Appointment Request Social History Tobacco Use Types [...] 12:26 PM EST Returned pt call via P/I#[id number], pt cancelled todays [facility] appt scheduled 11am. Pt previously cancelled 07/16/22 [facility] appt. Attempted to reschedule appt, offered 3 alternate times. 08/04/22, pt stated she will be in [place] for her sisters and back by 5pm. Offered her a time on 08/05/22, pt stated she doesn't know when she will be back. Offered her an appt today, 1 hour from now, beforeshe leaves for [place]. She said she will be long on her way to [place]. Reminded pt that she must attend these appointments to continue to receive her oxycodone script and that per her FEATHER SHAPER agreement she must come in within 24 hours for a random urine. Pt stated she will call back when she is available to reschedule. Will FYI PCP. * Telephone Encounter - Jareth Cifuentes - 08/03/2022 11:54 AM EST Tc from pt requesting to r/s appt 08/03/22 ( [facility]ATH[facility] RV) pt states not able to come due to a lost in the family. Please contact pt at [phone] documented in this encounter Plan of Treatment Upcoming Encounters Date Type Department Care Team (Late st Contact Info) Description 07/09/2025 2:00 PM EST Medication Management [facility] MED & PEDS [address] [place] [address] Yee Bella, PharmD [address] [place] [address] 07/13/2025 11:00 AM EST Office Visit [facility] MED & PEDS [address] [place] [address] Princess Min FNP [address] [place] [address] documented as of this encounter Visit Diagnoses Not on filedocumented in this encounter Care Teams Analytics Leader Relationship Specialty Start Date End Date Princess Min FNP [address] [place] [address] PCP - General Family Medicine 03/20/22 12/26/23 Princess Min FNP [address] [place] [address] PCP - General Family Medicine 01/21/24 02/03/24 Princess Min FNP [address] [place] [address] PCP - General Family Medicine 02/10/24 Yee Bella, GregD [address] [place] [address] Pharmacist Pharmacy 07/05/25 Cherelle Roy Square Dance CallerProduct Marketing Coordinator 01/24/25 Christine Villaseñor Square Dance CallerProduct Marketing Coordinator 04/30/25 documented as of this encounter
--- OUTSIDE RECORDS SUMMARY | 2025-07-06 18:25 | XMS_ITS | Encounter Summary ---
Author Organization [employer] Address [address] [facility] 7t [place] [address] Care Team Providers Care Writing Center Director Name Role Phone Princess Min Primary Care Provider [phone] Yee Bella PharmD Unavailable [phone] Reason for Visit * Reason Onset Date Comments Nurse Triage 09/27/2024 Encounter Details Date Type Department Care Team ([facility] st Contact Info) Description 09/27/2024 Telephone [facility] MEDICINE [address] [place] [address] Princess Min FNP [address] [place] [address] Nurse Triage Social History Tobacco Use Types [...] pt to triage, spoke to pt. through [place] brilliandeer lopper. pt states went for surgery this morning, [...] distress. given appt with PCP Wednesday in [facility] at 11:15 for exam and [...] above 300 The caller accepted this outcome. [phone] [place] Pt states had knee surgery today but it couldn't be performed because the indicated that the wheezing should be checked first since he didn't know what could be happening with the pt and it couldinteract with the anesthesia. documented in this encounter Plan of Treatment Upcoming Encounters Date Type Department Care Team (Late st Contact Info) Description 07/09/2025 2:00 PM EST Medication Management [facility] MED & PEDS [address] [place], [place] [phone] Yee Bella, PharmD [address] [place] [address] 07/13/2025 11:00 AM EST Office Visit [facility] CHC MED & PEDS [address] [place] [address] Princess Min FNP [address] [place] [address] documented as of this encounter Visit Diagnoses Not on filedocumented in this encounter Additional Health Concerns Assessment Noted Time PHQ-9 Depression Total Score: 3 03/03/20 24 11:33 AM EDT documented as of this encounter Care Teams Writing Center Director Relationship Specialty Start Date End Date Princess Min FNP [address] [place] [address] PCP - General Family Medicine 02/10/24 Yee Bella, GregD [address] [place] [address] Pharmacist Pharmacy 07/05/25 Cherelle Roy Dip TankerStove Cleaner 01/24/25 Christine Villaseñor Dip TankerStove Cleaner 04/30/25 documented as of this encounter
--- OUTSIDE RECORDS SUMMARY | 2025-07-06 18:25 | XMS_ITS | Encounter Summary ---
Author Organization [employer] Address [address] [facility] 7t [place] [address] Care Team Providers Care Oncology Transplant Network Manager Name Role Phone Princess Min Primary Care Provider [phone] Princess Min Primary Care Provider [phone] Yee Bella PharmD Unavailable [phone] Reason for Visit * Reason Comments Med Change Request Encounter Details Date Type Department Care Team ([facility] Contact Info) Description 12/30/2023 Refill [facility] MED & PEDS [address] [place], [place] [phone] Princess Min FNP [address] [place], [place] [phone] Social History Tobacco Use Types Packs/Day Years [...] 07/09/2025 2:00 PM EST Medication Management [facility] MED & PEDS [address] [place] [address] Yee Bella, PharmD [address] [place] [address] 07/13/2025 11:00 AM EST Office Visit [facility] MED & PEDS [address] [place] [address] Princess Min FNP [address] [place] [address] documented as of this encounter Visit Diagnoses Not on filedocumented in this encounter Additional Health Concerns Assessment Noted Time PHQ-9 Depression Total Score: 10 023 10:39 AM EDT documented as of this encounter Care Teams Oncology Transplant Network Manager Relationship Specialty Start Date End Date Princess Min FNP [address] [place] [address] PCP - General Family Medicine 01/21/24 02/03/24 Princess Min FNP [address] [place] [address] PCP - General Family Medicine 02/10/24 Yee Bella PharmD [address] [place] [address] Pharmacist Pharmacy 07/05/25 Cherelle Roy Head MixerLivestock Sales Representative 01/24/25 Christine Villaseñor Head MixerLivestock Sales Representative 04/30/25 documented as of this encounter
--- OUTSIDE RECORDS SUMMARY | 2025-07-06 18:25 | XMS_ITS | Encounter Summary ---
Author Organization [employer] Address [address] [facility] 7t [place] [address] Care Team Providers Care Early Childhood Director Name Role Phone Princess Min Primary Care Provider [phone] Princess Min Primary Care Provider [phone] Princess Min Primary Care Provider [phone] Yee Bella PharmD Unavailable [phone] Reason for Visit * Reason Onset Date Comments PCP Switch 06/22/2023 Encounter Details Date Type Department Care Team ([facility] st Contact Info) Description 06/22/2023 Telephone [facility] MEDICINE 230 [place] [address] Princess Min FNP [address] [place], [place] [phone] PCP Switch Social History Tobacco Use Types Packs/Day Years Used Date Smoking Tobacco: Some Days Cigarettes Smokeless Tobacco: Never Alcohol Use Standard Drinks/Week Comments Not Currently 0 (1 standard drink = 0.6 oz pur e alcohol) Occasionally Depression Answer Date Recorded Patient Health Questionnaire-9 Score 02/05/2023 Housing Stability Answer Date Recorded What [...] be seen by a doctor not a TAVERN CAR ATTENDANT investigative writer did express that it will be sometime before the change can take place patient is aware and ok with response. documented in this encounter Plan of Treatment Upcoming Encounters Date Type Department Care Team (Late st Contact Info) Description 07/09/2025 2:00 PM EST Medication Management [facility] MED & PEDS 505 [place] [address] Yee Bella, PharmD 230 [place] [address] 07/13/2025 11:00 AM EST Office Visit [facility] MED & PEDS 505 [place] [address] Princess Min FNP 505 [place] [address] documented as of this encounter Visit Diagnoses Not on filedocumented in this encounter Additional Health Concerns Assessment Noted Time PHQ-9 Depression Total Score: 10 023 10:39 AM EDT documented as of this encounter Care Teams Early Childhood Director Relationship Specialty Start Date End Date Princess Min FNP 230 [place] [address] PCP - General Family Medicine 03/20/22 12/26/23 Princess Min FNP [address] [place] [address] PCP - General Family Medicine 01/21/24 02/03/24 Princess Min FNP [address] [place] [address] PCP - General Family Medicine 02/10/24 Yee Bella, GregD 230 [place] [address] Pharmacist Pharmacy 07/05/25 Cherelle Roy Coach MechanicRisk Consultant 01/24/25 Christine Villaseñor Coach MechanicRisk Consultant 04/30/25 documented as of this encounter
--- OUTSIDE RECORDS SUMMARY | 2025-07-06 18:25 | XMS_ITS | Encounter Summary ---
Author Organization [employer] Address [address] [facility] 7t [place] [address] Care Team Providers Care Mine Exploration Engineer Name Role Phone Princess Min Primary Care Provider [phone] Princess Min Primary Care Provider [phone] Yee Bella PharmD Unavailable [phone] Reason for Visit * Reason Comments Med Change Request Encounter Details Date Type Department Care Team ([facility] Contact Info) Description 12/28/2023 Refill [facility] MED & PEDS [address] [place], [place] [phone] Princess Min FNP [address] [place], [place] [phone] Social History Tobacco Use Types Packs/Day Years [...] Description 07/09/2025 2:00 PM EST Medication Management [facility] MED & PEDS [address] [place] [address] Yee Bella PharmD 230 [place] [address] 07/13/2025 11:00 AM EST Office Visit [facility] MED & PEDS [address] [place] [address] Princess Min FNP 505 [place] [address] documented as of this encounter Visit Diagnoses Not on filedocumented in this encounter Additional Health Concerns Assessment Noted Time PHQ-9 Depression Total Score: 023 10:39 AM EDT documented as of this encounter Care Teams Mine Exploration Engineer Relationship Specialty Start Date End Date Princess Min FNP 230 [place] [address] PCP - General Family Medicine 01/21/24 02/03/24 Princess Min FNP 230 [place] [address] PCP - General Family Medicine 02/10/24 Yee Bella, PharmD 230 [place] [address] Pharmacist Pharmacy 07/05/25 Cherelle Roy Staff Nuclear Weapons OfficerWild Oyster Harvester 01/24/25 Christine Villaseñor Staff Nuclear Weapons OfficerWild Oyster Harvester 04/30/25 documented as of this encounter
--- OUTSIDE RECORDS SUMMARY | 2025-07-06 18:25 | XMS_ITS | Encounter Summary ---
Author Organization [employer] Address [address] [facility] 7t [place] [address] Care Team Providers Care Marketing Communications Manager Name Role Phone Princess Min Primary Care Provider Yee Bella PharmD Unavailable [phone] Reason for Visit * Reason Comments Med Refill Encounter Details Date Type Department Care Team ([facility] st Contact Info) Description 05/15/2025 Refill [facility] MEDICINE 230 [place] [address] Princess Min FNP 505 [place] [address] Social History Tobacco Use Types Packs/Day Years [...] the past 12 months, has t he [employer], gas, oil or water company threatened to [...] Description 07/09/2025 2:00 PM EST Medication Management [facility] MED & PEDS 505 [place] [address] Yee Bella, PharmD 230 [place] [address] 07/13/2025 11:00 AM EST Office Visit [facility] MED & PEDS 505 [place] [address] Princess Min FNP 505 [place] [address] documented as of this encounter Visit Diagnoses Not on filedocumented in this encounter Additional Health Concerns Assessment Noted Time PHQ-9 Depression Total Score: 9 03/28/20 25 11:35 AM EDT documented as of this encounter Care Teams Marketing Communications Manager Relationship Specialty Start Date End Date Princess Min FNP 230 [place] [address] PCP - General Family Medicine 02/10/24 Yee Bella, GregD 230 [place] [address] Pharmacist Pharmacy 07/05/25 Cherelle Roy Needle Punch Machine OperatorSenior Software Project Manager 01/24/25 Christine Villaseñor Needle Punch Machine OperatorSenior Software Project Manager 04/30/25 documented as of this encounter
--- OUTSIDE RECORDS SUMMARY | 2025-07-06 18:25 | XMS_ITS | Encounter Summary ---
Author Organization [employer] Address [address] [facility] 7t [place] [address] Care Team Providers Care Equipment Tech Name Role Phone Princess Min Primary Care Provider [phone] Princess Min Primary Care Provider [phone] Princess Min Primary Care Provider [phone] Yee Bella PharmD Unavailable [phone] Reason for Visit * Reason Comments Med Refill Encounter Details Date Type Department Care Team ([facility] st Contact Info) Description 06/14/2023 Refill [facility] MEDICINE 230 [place] [address] Princess Min FNP [address] [place], [place] [phone] Social History Tobacco Use Types Packs/Day Years [...] Description 07/09/2025 2:00 PM EST Medication Management [facility] MED & PEDS 505 [place] [address] Yee Bella, PharmD 230 [place] [address] 07/13/2025 11:00 AM EST Office Visit [facility] MED & PEDS 505 [place] [address] Princess Min FNP 505 [place] [address] documented as of this encounter Visit Diagnoses Not on filedocumented in this encounter Additional Health Concerns Assessment Noted Time PHQ-9 Depression Total Score: 10 023 10:39 AM EDT documented as of this encounter Care Teams Equipment Tech Relationship Specialty Start Date End Date Princess Min FNP 230 [place] [address] PCP - General Family Medicine 03/20/22 12/26/23 Princess Min FNP [address] [place] [address] PCP - General Family Medicine 01/21/24 02/03/24 Princess Min FNP 230 [place] [address] PCP - General Family Medicine 02/10/24 Yee Bella PharmD 230 [place] [address] Pharmacist Pharmacy 07/05/25 Cherelle Roy New Car SalespersonBowling Pin Setters Installer 01/24/25 Christine Villaseñor New Car SalespersonBowling Pin Setters Installer 04/30/25 documented as of this encounter
--- OUTSIDE RECORDS SUMMARY | 2025-07-06 18:25 | XMS_ITS | Encounter Summary ---
Author Organization [employer] Address 75 [facility] 7t [place] [address] Care Team Providers Care Client Service Consultant Name Role Phone Princess Min Primary Care Provider [phone] Princess Min Primary Care Provider [phone] Princess Min Primary Care Provider [phone] Yee Bella PharmD Unavailable [phone] Reason for Visit * Reason Onset Date Comments PT1 04/27/2023 Encounter Details Date Type Department Care Team (Late st Contact Info) Description 04/27/2023 Telephone [facility] MEDICINE 230 [place] [address] Princess Min FNP 505 [place], [place] [phone] PT1 Social History Tobacco Use Types Packs/Day [...] of Serious Illness 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 * Telephone Encounter - Barbie Montanez - 04/28/2023 3:58 PM EDT PT-1 submitted for patient. They will receive a letter of approval or denial in the mail. * Telephone Encounter - Velia Berry - 04/27/2023 4:43 PM EDT Tc form pt requesting PT1 Date: 05/06/23 Time: 10 AM address: [address] [place] [address] specialty: Psychologist # visits: n/a robot programmer: no Wheelchair: no documented in this encounter Plan of Treatment Upcoming Encounters Date Type Department Care Team (Late st Contact Info) Description 07/09/2025 2:00 PM EST Medication Management [facility] MED & PEDS 505 [place] [address] Yee Bella PharmD 230 [place] [address] 07/13/2025 11:00 AM EST Office Visit [facility] MED & PEDS 505 [place] [address] Princess Min FNP 505 [place] [address] documented as of this encounter Visit Diagnoses Not on filedocumented in this encounter Additional Health Concerns Assessment Noted Time PHQ-9 Depression Total Score: 10 02/05/ 023 10:39 AM EDT documented as of this encounter Care Teams Client Service Consultant Relationship Specialty Start Date End Date Princess Min FNP 230 [place] [address] PCP - General Family Medicine 8/26/22 6/2/24 Princess Min FNP 230 [place] [address] PCP - General Family Medicine 01/21/24 02/03/24 Princess Min FNP [address] [place] [address] PCP - General Family Medicine 02/10/24 Yee Bella, GregD 230 [place] [address] Pharmacist Pharmacy 07/05/25 Cherelle Roy Director Of Consumer MarketingWheelchair Driver 01/24/25 Christine Villaseñor Director Of Consumer MarketingWheelchair Driver 04/30/25 documented as of this encounter
--- OUTSIDE RECORDS SUMMARY | 2025-07-06 18:25 | XMS_ITS | Encounter Summary ---
Author Organization [employer] Address [address] [facility] 7t [place] [address] Care Team Providers Care Food Service Representative Name Role Phone Princess Min Primary Care Provider [phone] Yee Bella PharmD Unavailable [phone] Reason for Visit * Reason Comments Med Refill Encounter Details Date Type Department Care Team ([facility] st Contact Info) Description 09/15/2024 Refill [facility] MEDICINE 230 [place], [place] [phone] Princess Min FNP 505 [place] [address] Social History Tobacco Use Types Packs/Day Years [...] 2:00 PM EST Medication Management [facility] MED & PEDS 505 [place] [address] Yee Bella, PharmD 230 [place] [address] 07/13/2025 11:00 AM EST Office Visit [facility] MED & PEDS 505 [place] [address] Princess Min FNP 505 [place] [address] documented as of this encounter Visit Diagnoses Not on filedocumented in this encounter Additional Health Concerns Assessment Noted Time PHQ-9 Depression Total Score: 3 03/03/20 24 11:33 AM EDT documented as of this encounter Care Teams Food Service Representative Relationship Specialty Start Date End Date Princess Min FNP 230 [place] [address] PCP - General Family Medicine 02/10/24 Yee Bella, PharmD [address] [place] [address] Pharmacist Pharmacy 07/05/25 Cherelle Roy Curator Of CollectionsHome Health Provider 01/24/25 Christine Villaseñor Curator Of CollectionsHome Health Provider 04/30/25 documented as of this encounter
--- OUTSIDE RECORDS SUMMARY | 2025-07-06 18:25 | XMS_ITS | Encounter Summary ---
Author Organization [employer] Address 75 [facility] 7t [place] [address] Care Team Providers Care Client Support Analyst Name Role Phone Princess Min CLINICAL LAB SPECIALIST Primary Care Provider [phone] Yee Bella PharmD Unavailable [phone] Encounter Details Date Type Department Care Team (Late st Contact Info) Description 01/22/2025 Refill [facility] MED & PEDS 505 [place], [place] [phone] Princess Min FNP 505 [place] [address] Social History Tobacco Use Types Packs/Day Years [...] Medication Management [facility] MED & PEDS 505 [place] [address] Yee Bella, PharmD 230 [place] [address] 07/13/2025 11:00 AM EST Office Visit [facility] MED & PEDS 505 [place] [address] Princess Min FNP 505 [place] [address] documented as of this encounter Visit Diagnoses Not on filedocumented in this encounter Additional Health Concerns Assessment Noted Time PHQ-9 Depression Total Score: 3 03/03/20 24 11:33 AM EDT documented as of this encounter Care Teams Client Support Analyst Relationship Specialty Start Date End Date Princess Min FNP 230 [place] [address] PCP - General Family Medicine 02/10/24 Yee Bella, PharmD 230 [place] [address] Pharmacist Pharmacy 07/05/25 Cherelle Roy Patient Relations SpecialistHardwood Floor Layer 01/24/25 Christine Villaseñor Patient Relations SpecialistHardwood Floor Layer 04/30/25 documented as of this encounter
--- OUTSIDE RECORDS SUMMARY | 2025-07-06 18:25 | XMS_ITS | Encounter Summary ---
Author Organization [employer] Address 75 [facility] 7t [place] [address] Care Team Providers Care Food And Nutrition Services Assistant Name Role Phone Princess Min Primary Care Provider [phone] Yee Bella PharmD Unavailable Reason for Visit * Reason Comments Med Refill Encounter Details Date Type Department Care Team ([facility] st Contact Info) Description 07/17/2024 Refill [facility] MED & PEDS 505 [place], [place] [phone] Princess Min FNP 505 [place] [address] Acute otitis externa of left ear, unspecified [...] 2:00 PM EST Medication Management [facility] MED & PEDS 505 [place] [address] Yee Bella, PharmD 230 [place] [address] 07/13/2025 11:00 AM EST Office Visit [facility] MED & PEDS 505 [place] [address] Princess Min FNP 505 [place] [address] documented as of this encounter Visit Diagnoses Diagnosis Acute otitis externa of left ear, unspecified type Intermittent diarrhea documented in this encounter Additional Health Concerns Assessment Noted Time PHQ-9 Depression Total Score: 3 03/03/20 24 11:33 AM EDT documented as of this encounter Care Teams Food And Nutrition Services Assistant Relationship Specialty Start Date End Date Princess Min FNP 230 [place] [address] PCP - General Family Medicine 02/10/24 Yee Bella, GregD 230 [place] [address] Pharmacist Pharmacy 07/05/25 Cherelle Roy Director Of Catering SalesEntry Manager 01/24/25 Christine Villaseñor Director Of Catering SalesEntry Manager 04/30/25 documented as of this encounter
--- OUTSIDE RECORDS SUMMARY | 2025-07-06 18:25 | XMS_ITS | Encounter Summary ---
Author Organization [employer] Address 75 [facility] 7t [place] [address] Care Team Providers Care Validation Consultant Name Role Phone Princess Min Primary Care Provider [phone] Yee Bella PharmD Unavailable [phone] Reason for Visit * Reason Onset Date Comments Durable Medical Equipment 09/12/2024 Encounter Details Date Type Department Care Team ([facility] st Contact Info) Description 09/12/2024 Telephone [facility] MEDICINE 230 [place] [address] Princess Min FNP [address] [place] [address] Durable Medical Equipment Social History Tobacco Use [...] Upcoming Encounters Date Type Department Care Team ([facility] st Contact Info) Description 07/09/2025 2:00 PM EST Medication Management [facility] MED & PEDS 505 [place] [address] Yee Bella, PharmD 230 [place] [address] 07/13/2025 11:00 AM EST Office Visit [facility] MED & PEDS 505 [place] [address] Princess Min FNP 505 [place] [address] documented as of this encounter Visit Diagnoses Not on filedocumented in this encounter Additional Health Concerns Assessment Noted Time PHQ-9 Depression Total Score: 3 03/03/20 24 11:33 AM EDT documented as of this encounter Care Teams Validation Consultant Relationship Specialty Start Date End Date Princess Min FNP 230 [place] [address] PCP - General Family Medicine 02/10/24 Yee Bella PharmD 230 [place] [address] Pharmacist Pharmacy 07/05/25 Cherelle Roy Director Marketing CommunicationsDress Draper 01/24/25 Christine Villaseñor Director Marketing CommunicationsDress Draper 04/30/25 documented as of this encounter
--- OUTSIDE RECORDS SUMMARY | 2025-07-06 18:25 | XMS_ITS | Encounter Summary ---
Author Organization [employer] Address [address] [facility] 7t [place] [address] Care Team Providers Care Tour Bus Driver/Guide Name Role Phone Princess Min Primary Care Provider [phone] Yee Bella PharmD Unavailable [phone] Reason for Visit * Reason Onset Date Comments Med Refill 07/13/2024 Encounter Details Date Type Department Care Team ([facility] st Contact Info) Description 07/13/2024 Telephone [facility] MEDICINE 230 [place] [address] Princess Min FNP [address] [place] [address] Med Refill Social History Tobacco Use Types [...] 7:46 PM EST She is not on WAD IMPREGNATOR, would need appt to discuss pain control. [...] for the pain. Please contact pt at [phone]. documented in this encounter Plan of Treatment Upcoming Encounters Date Type Department Care Team ([facility] st Contact Info) Description 07/09/2025 2:00 PM EST Medication Management [facility] MED & PEDS 505 [place] [address] Yee Bella PharmD 230 [place] [address] 07/13/2025 11:00 AM EST Office Visit [facility] MED & PEDS 505 [place], [place] [phone] Princess Min FNP 505 [place] [address] documented as of this encounter Visit Diagnoses Not on filedocumented in this encounter Additional Health Concerns Assessment Noted Time PHQ-9 Depression Total Score: 3 03/03/20 24 11:33 AM EDT documented as of this encounter Care Teams Tour Bus Driver/Guide Relationship Specialty Start Date End Date Princess Min FNP 230 [place] [address] PCP - General Family Medicine 02/10/24 Yee Bella PharmD 230 [place] [address] Pharmacist Pharmacy 07/05/25 Cherelle Roy Director Of CodingAdvanced Solutions Architect 01/24/25 Christine Villaseñor Director Of CodingAdvanced Solutions Architect 04/30/25 documented as of this encounter
--- OUTSIDE RECORDS SUMMARY | 2025-07-06 18:25 | XMS_ITS | Encounter Summary ---
Author Organization [employer] Address [address] [facility] 7t [place] [address] Care Team Providers Care Deputy Probation Officer Name Role Phone Princess Min Primary Care Provider [phone] Princess Min Primary Care Provider [phone] Yee Bella PharmD Unavailable [phone] Encounter Details Date Type Department Care Team (Late st Contact Info) Description 12/28/2023 Telephone [facility] MEDICINE 230 [place] [address] Princess Min FNP [address] [place], [place] [address] Social History Tobacco Use Types Packs/Day Years [...] 2:00 PM EST Medication Management [facility] MED & PEDS 505 [place] [address] Yee Bella PharmD 230 [place] [address] 07/13/2025 11:00 AM EST Office Visit [facility] MED & PEDS 505 [place] [address] Princess Min FNP 505 [place] [address] documented as of this encounter Visit Diagnoses Not on filedocumented in this encounter Additional Health Concerns Assessment Noted Time PHQ-9 Depression Total Score: 10 023 10:39 AM EDT documented as of this encounter Care Teams Deputy Probation Officer Relationship Specialty Start Date End Date Princess Min FNP [address] [place] [address] PCP - General Family Medicine 01/21/24 02/03/24 Princess Min FNP 230 [place] [address] PCP - General Family Medicine 02/10/24 Yee Bella PharmD [address] [place] [address] Pharmacist Pharmacy 07/05/25 Cherelle Roy Sewing MachinistHead Of Mathematics 01/24/25 Christine Villaseñor Sewing MachinistHead Of Mathematics 04/30/25 documented as of this encounter
--- OUTSIDE RECORDS SUMMARY | 2025-07-06 18:25 | XMS_ITS | Encounter Summary ---
Author Organization [employer] Address 75 [facility] 7t [place] [address] Care Team Providers Care Professor Of Engineering Name Role Phone Princess Min Primary Care Provider [phone] Princess Min Primary Care Provider [phone] Yee Bella PharmD Unavailable [phone] Reason for Visit * Reason Comments Med Refill Encounter Details Date Type Department Care Team ([facility] st Contact Info) Description 01/02/[address] [facility] MEDICINE 230 [place] [address] Princess Min FNP [address] [place], [place] [phone] Social History Tobacco Use Types Packs/Day Years [...] Description 07/09/2025 2:00 PM EST Medication Management [facility] MED & PEDS 505 [place] [address] Yee Bella PharmD 230 [place] [address] 07/13/2025 11:00 AM EST Office Visit [facility] MED & PEDS 505 [place] [address] Princess Min FNP 505 [place] [address] documented as of this encounter Visit Diagnoses Not on filedocumented in this encounter Additional Health Concerns Assessment Noted Time PHQ-9 Depression Total Score: 023 10:39 AM EDT documented as of this encounter Care Teams Professor Of Engineering Relationship Specialty Start Date End Date Princess Min FNP 230 [place] [address] PCP - General Family Medicine 01/21/24 02/03/24 Princess Min FNP [address] [place] [address] PCP - General Family Medicine 02/10/24 Yee Bella, GregD [address] [place] [address] Pharmacist Pharmacy 07/05/25 Cherelle Roy Snowmobile MechanicCivil Preparedness Officer 01/24/25 Christine Villaseñor Snowmobile MechanicCivil Preparedness Officer 04/30/25 documented as of this encounter
== END ==
LOC: HO.CARD 12:47
PROVIDERS: PCP Registered Nurse; Visit Provider Internal Medicine
DX: I50.9 Heart failure, unspecified (principal)
CPT/HCPCS: 93306; Q9957

== ENCOUNTER → 2025-07-06 12:50 | Outpatient (BNV) | payer MEDICAID, SELFPAY | PROVIDERS: PCP Registered Nurse; Visit Provider Internal Medicine Cardiovascular Disease | DX: I50.9 Heart failure, unspecified (principal) | CPT/HCPCS: 93306 ==

== ENCOUNTER 2025-07-21 15:10 | Inpatient (IN) | payer MEDICAID, SELFPAY ==
[2025-07-21] VITALS (11 sets, daily range): BP systolic 110–148; BP diastolic 55–66; PULSE 77–89; RESP 18–22; TEMP 37.1–37.2; O2SAT 92–97; BMI 42.3
--- NOTE | 2025-07-21 | ECG_ITS ---
Test Reason : SOB Blood Pressure : */* mmHG Vent. Rate : 82 BPM Atrial Rate : 82 BPM P-R Int : 144 ms QRS Dur : 92 ms QT Int : 466 ms P-R-T Axes : 23 13 -2 degrees QTcB Int : 544 ms Normal sinus rhythm Cannot rule out Anterior infarct , age undetermined Abnormal ECG When compared with ECG of 04-Sep-2024 11:23, Nonspecific T wave abnormality, worse in Inferior leads Nonspecific T wave abnormality, worse in Lateral leads QT has lengthened Referred By: Generic ED Physician Electronically Signed By: JOSE DICKEY MD
--- NOTE | ~2025-07-21 | XR_ITS ---
CLINICAL HISTORY: sob Chest Radiograph Comparison: CT/SR - CT CHEST WO IV CON - 12/08/24 13:57 EDT CR - XR CHEST 2V - 10/19/24 13:33 EDT Findings: No cardiomegaly. Normal mediastinal contours. No pneumothorax. No opacity. No pleural effusion. No acute findings in the upper abdomen. No acute fracture. Impression: No acute findings. This document has been electronically signed by: Janice Santana MD on 07/21/2025 16:38:04
--- OUTSIDE RECORDS SUMMARY | 2025-07-21 16:09 | XMS_ITS | Encounter Summary ---
Author Organization [employer] Address 75 [facility] 7t [place] [address] Care Team Providers Care Refuge Manager Name Role Phone Princess Min Primary Care Provider [phone] Princess Min Primary Care Provider [phone] Princess Min Primary Care Provider [phone] Yee Bella PharmD Unavailable [phone] Reason for Visit * Reason Onset Date Comments Referral 11/20/2022 Encounter Details Date Type Department Care Team ([facility] st Contact Info) Description 11/20/2022 Telephone [facility] MEDICINE 230 [place] [address] Princess Min FNP 505 [place], [place] [phone] Referral Social History Tobacco Use Types Packs/Day [...] to see Dr Deras at [facility] because of her strong family hx of [...] Specialty: Seth Deras [facility] Location:[address] [place] [address] Dr Dorsey [address] [place] [address] Date&Time: n/a Portrait Photographer: n/a Please call pt to clarify. documented in this encounter Plan of Treatment Upcoming Encounters Date Type Department Care Team (Late st Contact Info) Description 07/24/2025 1:30 PM EST Clinical Support [facility] MEDICINE [address] [place] [address] 08/01/2025 10:30 AM EST Medication Management [facility]S [address] [place] [address] Yee Bella PharmD 230 [place] [address] documented as of this encounter Visit Diagnoses Not on filedocumented in this encounter Additional Health Concerns Assessment Noted Time PHQ-9 Depression Total Score: 24 023 9:25 AM EDT documented as of this encounter Care Teams Refuge Manager Relationship Specialty Start Date End Date Princess Min FNP [address] [place] [address] PCP - General Family Medicine 03/20/22 12/26/23 Princess Min FNP [address] [place] [address] PCP - General Family Medicine 01/21/24 02/03/24 Princess Min FNP 230 [place] [address] PCP - General Family Medicine 02/10/24 Yee Bella, GregD 230 [place] [address] Pharmacist Pharmacy 07/05/25 Cherelle Roy Team AssemblerCoding Technician 01/24/25 Christine Villaseñor Team AssemblerCoding Technician 04/30/25 documented as of this encounter
--- OUTSIDE RECORDS SUMMARY | 2025-07-21 16:09 | XMS_ITS | Encounter Summary ---
Author Organization [employer] Address 75 [facility] 7t [place] [address] Care Team Providers Care Diamond Assorter Name Role Phone Princess Min Primary Care Provider [phone] Princess Min Primary Care Provider [phone] Princess Min Primary Care Provider [phone] Yee Bella PharmD Unavailable [phone] Reason for Visit * Reason Onset Date Comments Durable Medical Equipment 11/19/2022 Encounter Details Date Type Department Care Team (Late st Contact Info) Description 11/19/2022 Telephone [facility] MEDICINE 230 [place] [address] Princess Min FNP 505 [place], [place] [phone] Durable Medical Equipment Social History Tobacco Use [...] before I couldprovide a referral number to [facility] to process DME. Patient understood and agreed with plan. * Telephone Encounter - Miracle Dickens - 12/08/2022 4:32 PM EDT Tc from pt regarding message below. Pt states [facility] is requesting a PA If any questions please contact pt at [phone] * Telephone Encounter - Barbie Montanez - 12/08/2022 12:34 PM EDT Scripts received from provider and faxed to [facility] as requested. Patient notified. * Telephone Encounter - Dean Alvarado - 12/08/2022 12:06 PM EDT Tc from pt requesting status update on script for commode and shower chair, states would like script to sent to [facility]. Please contact at [phone] * Telephone Encounter - Barbie Montanez - 11/19/2022 3:16 PM EDT Scripts for shower chair and commode generated for signature * Telephone Encounter - Jareth Cifuentes - 11/19/2022 2:55 PM EDT Tc from pt requesting a script for a commode also a script for a shower chair. To be faxed to [facility] Please contact pt at [phone] documented in this encounter Plan of Treatment Upcoming Encounters Date Type Department Care Team (Late st Contact Info) Description 07/24/2025 1:30 PM EST Clinical Support [facility] [address] [facility] [place] [address] 08/01/2025 10:30 AM EST Medication Management [facility] MED [facility] PEDS [address] [place] [address] Yee Bella, PharmD [address] [facility] [place] [address] documented as of this encounter Visit Diagnoses Not on filedocumented in this encounter Additional Health Concerns Assessment Noted Time PHQ-9 Depression Total Score: 24 023 9:25 AM EDT documented as of this encounter Care Teams Diamond Assorter Relationship Specialty Start Date End Date Princess Min FNP [facility] [place] [address] PCP - General Family Medicine 03/20/22 12/26/23 Princess Min FNP [address] [facility] [place] [address] PCP - General Family Medicine 01/21/24 02/03/24 Princess Min FNP 230 [place] [address] PCP - General Family Medicine 02/10/24 Yee Bella, GregD [facility] [place] [address] Pharmacist Pharmacy 07/05/25 Cherelle Roy Instrument FitterSurgical Assistant Certified 01/24/25 Christine Villaseñor Instrument FitterSurgical Assistant Certified 04/30/25 documented as of this encounter
--- OUTSIDE RECORDS SUMMARY | 2025-07-21 16:09 | XMS_ITS | Encounter Summary ---
Author Organization [employer] Address 75 [facility] 7t [place] [address] Care Team Providers Care Instrument Mechanics Supervisor Name Role Phone Princess Min Primary Care Provider [phone] Yee Bella PharmD Unavailable [phone] Reason for Visit * Reason Comments Med Refill Encounter Details Date Type Department Care Team ([facility] st Contact Info) Description 04/25/2024 Refill [facility] MEDICINE 230 [place] [address] Princess Min FNP 505 [place] [address] Social History Tobacco Use Types Packs/Day Years [...] Description 07/24/2025 1:30 PM EST Clinical Support [facility] MEDICINE [address] [place] [address] 08/01/2025 10:30 AM EST Medication Management [facility] MED & PEDS [address] [place] [address] Yee Bella PharmD 230 [place] [address] documented as of this encounter Visit Diagnoses Not on filedocumented in this encounter Additional Health Concerns Assessment Noted Time PHQ-9 Depression Total Score: 3 03/03/20 24 11:33 AM EDT documented as of this encounter Care Teams Instrument Mechanics Supervisor Relationship Specialty Start Date End Date Princess iMn FNP [address] [place] [address] PCP - General Family Medicine 02/10/24 Yee Bella, GregD [address] [place] [address] Pharmacist Pharmacy 07/05/25 Cherelle Roy Sales And Service OfficerPlanograph Operator 01/24/25 Christine Villaseñor Sales And Service OfficerPlanograph Operator 04/30/25 documented as of this encounter
--- OUTSIDE RECORDS SUMMARY | 2025-07-21 16:09 | XMS_ITS | Encounter Summary ---
Author Organization [employer] Address 75 [facility] 7t [place] [address] Care Team Providers Care Bus Washer Name Role Phone Princess Min Primary Care Provider [phone] Princess Min Primary Care Provider [phone] Yee Bella PharmD Unavailable [phone] Reason for Visit * Reason Onset Date Comments PT1 02/03/2024 Encounter Details Date Type Department Care Team (Late st Contact Info) Description 02/03/2024 Telephone [facility] MEDICINE 230 [place] [address] Princess Min FNP [address] [place], [place] [phone] PT1 Social History Tobacco Use Types Packs/Day [...] Miscellaneous Notes * Telephone Encounter - Ruby Agiulera - 02/03/2024 2:29 PM EDT Patient calling requesting PT1 Home Address verified: Y/N: Yes Provider name or facility name: [facility] Facility Address: [address] [place] [address] Escort needed: Y/N: No Do you have a wheelchair: Y/N: No If yes- Manual or electric: No, but cane. Visits; N/A documented in this encounter Plan of Treatment Upcoming Encounters Date Type Department Care Team ([facility] st Contact Info) Description 07/24/2025 1:30 PM EST Clinical Support [facility] MEDICINE 230 [place] [address] 08/01/2025 10:30 AM EST Medication Management [facility] MED & PEDS 505 [place] [address] Yee Bella PharmD 230 [place] [address] documented as of this encounter Visit Diagnoses Not on filedocumented in this encounter Additional Health Concerns Assessment Noted Time PHQ-9 Depression Total Score: 10 023 10:39 AM EDT documented as of this encounter Care Teams Bus Washer Relationship Specialty Start Date End Date Princess Min FNP [address] [place] [address] PCP - General Family Medicine 01/21/24 02/03/24 Princess Min FNP [address] [place] [address] PCP - General Family Medicine 02/10/24 Yee Bella, GregD 230 [place] [address] Pharmacist Pharmacy 07/05/25 Cherelle Roy Blow Down OperatorTheatrical Dresser 01/24/25 Christine Villaseñor Blow Down OperatorTheatrical Dresser 04/30/25 documented as of this encounter
--- OUTSIDE RECORDS SUMMARY | 2025-07-21 16:09 | XMS_ITS | Encounter Summary ---
Author Organization [employer] Address 75 [facility] 7t [place] [address] Care Team Providers Care Manager Voice Name Role Phone Princess Min Primary Care Provider [phone] Princess Min Primary Care Provider [phone] Princess Min Primary Care Provider [phone] Yee Bella PharmD Unavailable [phone] Reason for Visit * Reason Onset Date Comments Triage 10/19/2022 Encounter Details Date Type Department Care Team ([facility] st Contact Info) Description 10/19/2022 Telephone [facility] MEDICINE 230 [place] [address] Princess Min FNP 505 [place], [place] [phone] Triage Social History Tobacco Use Types Packs/Day [...] EDT Triage call returned to patient via [facility] aerial photograph interpreter [id number]. Patient reports only mild wheezing using albuterol [...] become worse * Telephone Encounter - Mayur Marieles Thomas - 10/19/2022 10:57 AM EDT Symptoms: Wheezing, Cough Outcome: Schedule an urgent appointment (within 1 hour) or talk to a nurse or provider soon Reason: No high acuity concerns reported by caller The caller accepted this outcome Please contact pt at [phone] Amharic speaker documented in this encounter Plan of Treatment Upcoming Encounters Date Type Department Care Team (Late st Contact Info) Description 07/24/2025 1:30 PM EST Clinical Support [facility] MEDICINE 230 [place] [address] 08/01/2025 10:30 AM EST Medication Management [facility] MED & PEDS [address] [place] [address] Yee Bella PharmD 230 [place] [address] documented as of this encounter Visit Diagnoses Not on filedocumented in this encounter Care Teams Manager Voice Relationship Specialty Start Date End Date Princess Min FNP [address] [place] [address] PCP - General Family Medicine 03/20/22 12/26/23 Princess Min FNP [address] [place] [address] PCP - General Family Medicine 01/21/24 02/03/24 Princess Min FNP [address] [place] [address] PCP - General Family Medicine 02/10/24 Yee Bella, GregD [address] [place] [address] Pharmacist Pharmacy 07/05/25 Cherelle Roy Rn AllergyWelding Foreman 01/24/25 Christine Villaseñor Rn AllergyWelding Foreman 04/30/25 documented as of this encounter
--- OUTSIDE RECORDS SUMMARY | 2025-07-21 16:09 | XMS_ITS | Encounter Summary ---
Author Organization [employer] Address 75 [facility] 7t [place] [address] Care Team Providers Care Mine Technician Name Role Phone Princess Min Primary Care Provider [phone] Princess Min Primary Care Provider [phone] Yee Bella PharmD Unavailable [phone] Reason for Visit * Reason Onset Date Comments New Med Request 02/03/2024 Encounter Details Date Type Department Care Team ([facility] st Contact Info) Description 02/03/2024 Telephone [facility] MEDICINE [address] [place] [address] Princess Min FNP [address] [place], [place] [phone] New Med Request Social History Tobacco Use [...] Description 07/24/2025 1:30 PM EST Clinical Support [facility] MEDICINE [address] [place] [address] 08/01/2025 10:30 AM EST Medication Management [facility] MED & PEDS 505 [place] [address] Yee Bella, PharmD 230 [place] [address] documented as of this encounter Visit Diagnoses Not on filedocumented in this encounter Additional Health Concerns Assessment Noted Time PHQ-9 Depression Total Score: 10 023 10:39 AM EDT documented as of this encounter Care Teams Mine Technician Relationship Specialty Start Date End Date Princess Min FNP [address] [place] [address] PCP - General Family Medicine 01/21/24 02/03/24 Princess Min FNP [address] [place] [address] PCP - General Family Medicine 02/10/24 Yee Bella, GregD [address] [place] [address] Pharmacist Pharmacy 07/05/25 Cherelle Roy Compound Machine OperatorAxle And Frame Mechanic 01/24/25 Christine Villaseñor Compound Machine OperatorAxle And Frame Mechanic 04/30/25 documented as of this encounter
--- OUTSIDE RECORDS SUMMARY | 2025-07-21 16:09 | XMS_ITS | Encounter Summary ---
Author Organization [employer] Address 75 [facility] 7t [place] [address] Care Team Providers Care Teacher Education Director Name Role Phone Princess Min Primary Care Provider [phone] Princess Min Primary Care Provider [phone] Princess Min Primary Care Provider [phone] Yee Bella PharmD Unavailable [phone] Reason for Visit * Reason Onset Date Comments PT1 request 10/19/2022 Encounter Details Date Type Department Care Team (Late st Contact Info) Description 10/19/2022 Telephone [facility] MEDICINE [address] [place] [address] Princess Min FNP [address] [place], [place] [phone] PT1 request Social History Tobacco Use Types [...] / denial letter via mail. PT-1 Request [id number] Authorized - [facility] PT-1 Request [id number] Pending [facility] Specialty [address] [place] [address] * Telephone Encounter - Alissa Winkler - 10/19/2022 11:55 AM EDT Tc from pt requesting PT1 Location:[facility] Specialty: Provider Date&Time:N/a Bass Singer: yes Uses cane Location: [facility] Specialty: Orthopedics Date&Time: N/a Bass Singer: Yes Location:[facility] Specialty: [facility] center Date&Time:N/a Bass Singer: yes documented in this encounter Plan of Treatment Upcoming Encounters Date Type Department Care Team (Late st Contact Info) Description 07/24/2025 1:30 PM EST Clinical Support [facility] MEDICINE [address] [place] [address] 08/01/2025 10:30 AM EST Medication Management [facility] MED [facility] PEDS [address] [place] [address] Yee Bella, PharmD 230 [place] [address] documented as of this encounter Visit Diagnoses Not on filedocumented in this encounter Care Teams Teacher Education Director Relationship Specialty Start Date End Date Princess Min FNP [address] [place] [address] PCP - General Family Medicine 03/20/22 12/26/23 Prnicess Min FNP [address] [place] [address] PCP - General Family Medicine 01/21/24 02/03/24 Princess Min FNP [address] [place] [address] PCP - General Family Medicine 02/10/24 Yee Bella PharmD 230 [place] [address] Pharmacist Pharmacy 07/05/25 Cherelle Roy Licensed Funeral Director And EmbalmerElectronic Service Technician 01/24/25 Christine Villaseñor Licensed Funeral Director And EmbalmerElectronic Service Technician 04/30/25 documented as of this encounter
--- OUTSIDE RECORDS SUMMARY | 2025-07-21 16:09 | XMS_ITS | Encounter Summary ---
Author Organization [employer] Address 75 [facility] 7t [place] [address] Care Team Providers Care Welt Edge Rounder Name Role Phone Princess Min Primary Care Provider [phone] Yee Bella PharmD Unavailable [phone] Reason for Visit * Reason Comments Med Refill Encounter Details Date Type Department Care Team ([facility] st Contact Info) Description 06/07/2025 Refill [facility] MEDICINE [address] [place] [address] Princess Min FNP 505 [place] [address] Pure hypercholesterolemia Social History Tobacco Use Types [...] the past 12 months, has t he [employer], gas, oil or water company threatened to [...] Description 07/24/2025 1:30 PM EST Clinical Support [facility] MEDICINE [address] [place] [address] 08/01/2025 10:30 AM EST Medication Management [facility] MED & PEDS 505 [place] [address] Yee Bella PharmD [address] [place] [address] documented as of this encounter Visit Diagnoses Diagnosis Pure hypercholesterolemia documented in this encounter Additional Health Concerns Assessment Noted Time PHQ-9 Depression Total Score: 9 03/28/20 25 11:35 AM EDT documented as of this encounter Care Teams Welt Edge Rounder Relationship Specialty Start Date End Date Princess Min FNP [address] [place] [address] PCP - General Family Medicine 02/10/24 Yee Bella, PharmD [address] [place] [address] Pharmacist Pharmacy 07/05/25 Cherelle Roy Senior Power SchedulerConstruction Craft Laborer 01/24/25 Christine Villaseñor Senior Power SchedulerConstruction Craft Laborer 04/30/25 documented as of this encounter
--- OUTSIDE RECORDS SUMMARY | 2025-07-21 16:09 | XMS_ITS | Encounter Summary ---
Author Organization [employer] Address 75 [facility] 7t [place] [address] Care Team Providers Care Wireless Network Engineer Name Role Phone Princess Min Primary Care Provider Princess Min Primary Care Provider [phone] Princess Min Primary Care Provider [phone] Yee Bella PharmD Unavailable [phone] Reason for Referral * Imaging (Routine) - Closed Specialty Diagnoses / Procedures Referred By Elaina melendez Referred To Contact Diagnoses Encounter for screening mammogram for malignant neoplasm of breast Procedures BI Mammogram Screening Bilateral Princess Min FNP [address] [place] [address] Phone: tel: fax: [facility] [address] [place] [phone] Phone: tel: fax: Referral ID Status Reason Start Date Expiration Date Visits Re quested Visits Authorized [id number] Closed 11/23/2022 05/22/2023 1 1 Reason for Visit * Reason Onset Date Comments Referral 11/20/2022 Encounter Details Date Type Department Care Team ([facility] st Contact Info) Description 11/20/2022 Telephone [facility] MEDICINE [address] [place] [address] Princess Min FNP [address] [place] [address] Referral Social History Tobacco Use Types Packs/Day [...] Please fax order for mammo to [facility] and call to let Ms. Garcia know when completed. Thank you. * Telephone Encounter - Alissa Winkler - 11/20/2022 10:16 AM EDT Tc from pt requesting a mammogram referral . Location [facility] documented in this encounter Plan of Treatment Upcoming Encounters Date Type Department Care Team (Late st Contact Info) Description 07/24/2025 1:30 PM EST Clinical Support [facility] MEDICINE [address] [place], [place] [phone] 08/01/2025 10:30 AM EST Medication Management [facility] MED & PEDS [address] [place] [address] Yee Bella, PharmD 230 [place] [address] Scheduled Orders Name Type Priority Associated Diagnoses [...] as of this encounter Care Teams Wireless Network Engineer Relationship Specialty Start Date End Date Princess Min FNP [address] [place] [address] PCP - General Family Medicine 03/20/22 12/26/23 Princess Min FNP [address] [place] [address] PCP - General Family Medicine 01/21/24 02/03/24 Princess Min FNP [address] [place] [address] PCP - General Family Medicine 02/10/24 Yee Bella, [place]berth [address] [place] [address] Pharmacist Pharmacy 07/05/25 Cherelle Roy Blueprint CutterTransit Operations Supervisor 01/24/25 Christine Villaseñor Blueprint CutterTransit Operations Supervisor 04/30/25 documented as of this encounter
--- OUTSIDE RECORDS SUMMARY | 2025-07-21 16:09 | XMS_ITS | Encounter Summary ---
Author Organization [employer] Address 75 [facility] 7t [place] [address] Care Team Providers Care Wildlife Refuge Manager Name Role Phone Princess Min Primary Care Provider [phone] Princess Min Primary Care Provider [phone] Princess Min Primary Care Provider [phone] Yee Bella PharmD Unavailable [phone] Reason for Visit * Reason Comments Med Refill Encounter Details Date Type Department Care Team (Late Contact Info) Description 08/11/2022 Refill [facility] MEDICINE 230 [place], [place] [phone] Princess Min FNP 505 [place], [place] [phone] Cervical spondylosis Social History Tobacco Use Types [...] Department Care Team (Late Contact Info) Description 07/24/2025 1:30 PM EST Clinical Support [facility] MEDICINE [address] [place], [place] [phone] 08/01/2025 10:30 AM EST Medication Management [facility] MED [facility] PEDS [address] [place] [address] Yee Bella PharmD 230 [place] [address] documented as of this encounter Visit Diagnoses Diagnosis Cervical spondylosis Cervical spondylosis without myelopathy documented in this encounter Care Teams Wildlife Refuge Manager Relationship Specialty Start Date End Date Princess Min FNP [address] [place] [address] PCP - General Family Medicine 03/20/22 12/26/23 Princess Min FNP [address] [place] [address] PCP - General Family Medicine 01/21/24 02/03/24 Princess Min FNP [address] [place] [address] PCP - General Family Medicine 02/10/24 Yee Bella, GregD [address] [place] [address] Pharmacist Pharmacy 07/05/25 Cherelle Roy Fuel AssemblerFlower Buncher Or Picker 01/24/25 Christine Villaseñor Fuel AssemblerFlower Buncher Or Picker 04/30/25 documented as of this encounter
--- OUTSIDE RECORDS SUMMARY | 2025-07-21 16:09 | XMS_ITS | Clinical Summary ---
Author Organization [id number] Address [address] [place] [address] Care Team Providers Care Barkeeper Name Role Phone Princess Min MANAGEMENT TECHNICIAN Primary Care Provider [phone] Yee Bella PharmD Unavailable [phone] Allergies Active Allergy Reactions Criticality Noted Date [...] mouth at bedtime. 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 90 tablet 1 05/18 Active Diclofenac Sodium (Voltaren Arthritis Pain) 1 % gel Apply 2 g topically 2 times daily. 350 g 2024 Active insulin pen needle (JobspottiGMotif BioSciencesrd SafePack Pen Needle) 32G x 4 mm miscIndications:Type 2 diabetes mellitus with hyperglycemia, with long-term current use of insulin ([facility]) USE WITH INSULIN DIRECTED 100 each 11 2024 Active TRUEplus Lancets 33G miscIndications:Type 2 diabetes mellitus with hyperglycemia, unspecified whether jail insulin use ([facility]) TEST BLOOD SUGAR TWICE DAILY 100 each 11 2024 Active Blood Glucose Monitoring Suppl (PetBox Lite) w/Device kit Use to test blood [...] MOUTH EVERYDAY AT NOON 90 tablet 3 025 4:57 PM EST 2024 Active Mounjaro 5 MG/0.5ML solution auto-injector INJECT ONE PEN (=5MG) SUBCUTANEOUSLY ONCE A WEEK DIRECTED 2024 Active zolpidem (Ambien) 10 MG tablet Take 10 mg by mouth if needed at bedtime. 2024 Active insulin glargine (Lantus SoloStar) 100 UNIT/ML penIndications:Type 2 diabetes mellitus with hyperglycemia, with long-term current use of insulin ([facility]) Inject 23 Units under the skin at bedtime. 15 mL 1 2024 Active Continuous Glucose Sensor (FreeStyle Olga 3 Plus Sensor) miscIndications:Type 2 diabetes mellitus with hyperglycemia, with long-term current use of insulin ([facility]) 1 each every 15 days. 2 each 025 2:24 PM EST 2024 Active Continuous Glucose Tracer Powder Blender (FreeStyle Olga 3 [place]) deviceIndications:Type 2 diabetes mellitus with hyperglycemia, with long-term current use of insulin ([facility]) 1 each 1 (one) time for 1 dose. 1 each 025 2:24 PM EST 08/05 Active glucose blood (FreeStyle Precision Todd Test) test stripIndications:Type 2 diabetes mellitus with hyperglycemia, with long-term current use of insulin ([facility]) Test blood sugar up to 3 times daily as directed 100 each 11 025 2:24 PM EST 2024 Active acetaminophen (Tylenol Extra Strength) 500 MG tablet Take 1-2 tablets (500-1,000 mg) by mouth every 8 (eight) hours if needed (pain or fever). 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) Inject 28 Units under the skin at bedtime. 15 mL 3 07/05 Discontinued( Reorder (will not trigger notification to Pharmacy)) glucose blood (FREESTYLE LITE) test stripIndications:Type 2 diabetes mellitus without complication, with long-term current use of insulin ([facility]) Test blood [...] Pulmonary nodule 01/08/2025 Overview (01/08/2025): [place] [facility] [place]: Calcified right upper lobe granuloma identified on CT. Plan: repeat 1 year Risk factors: tobacco use Tobacco use 01/08/2025 Overview (01/08/2025): - Cigg/day: 3 - Encouraged smoking cessation resources such as pharmacomtherapy, [facility] smoking cessation group, and [facility] pharmacy smoking cessation clinic - Lung CA screening followed [place] [facility] - November 2024: Chest CT demonstrated calcified right upper lobe granuloma. Next due: November 2025 History of total knee arthroplasty, left 024 Overview (04/02/2024): [place] [facility] [place] Assessment & Plan (01/08/2025 3:10 PM EDT): - Persistent pain with (+) effusion s/p fall at home - XR Feb 2024 in [facility] demonstrated increased demineralization along the subjacent proximal tibia, particularly subjacent to the medial flange of the prosthesis with possibile slight medial settling. Large joint effusion. - Apr 2024: Synovasure aspiration left knee by Dr. Laureano. Elevated CRP/sed rate. Joint fluid sent for testing. - Initially scheduled for revision surgery 09/27/24, on hold d/t recommendation for improved asthma control. Following with [facility] and reports breathing well controlled with current regimen. However, T2DM currently not well controlled - Pain control: APAP prn. Short course of oxycodone 5mg daily prn severe pain (5 tablets total), No refills. Reviewed med safety and SE. Assessment & Plan (10/01/2024 7:35 PM EDT): - Persistent pain with (+) effusion s/p fall at home - XR Feb 2024 [place] [facility] demonstrated increased demineralization along the subjacent proximal tibia, particularly subjacent to the medial flange of the prosthesis with possibile slight medial settling. Large joint effusion. - Apr 2024: Synovasure aspiration left knee by Dr. Laureano. Elevated CRP/sed rate. Joint fluid sent for testing. - Initially scheduled for revision surgery 09/27/24, but not cleared by anaesthesia. 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 Laureano ([facility]) Assessment & Plan (03/04/2024 6:12 [...] without complication 09/08/2017 Overview (01/08/2025): -Following with [facility] -Continues with Breo Ellipta 200 mcg [...] although difficulties with insurance coverage. -Spoke with [facility] pharmacy, will attempt to change to generic albuterol to see if works better for pt Diastolic heart failure 02/03/2017 Overview (07/15/2025): -Continues on Irbestartan 300mg daily at bedtime, furosemide 40mg daily, on SGLT2 -Following with [facility] - Dr. Britton Assessment & Plan (07/15/2025 4:24 PM EST): - Consult May 2025: plan for TTE. May need coronary CTA considering risk factors. Assessment & Plan (01/08/2025 3:08 PM EDT): - [facility] - will refer to [facility]. Reviewed importance of keeping scheduled appts or calling to schedule Cervical spondylosis 10/19/2016 Fibroma 06/10/2016 Diabetes mellitus 05/27/2016 Overview (07/15/2025): Lab Results Component Value Date HGBA1C 9.2 (H) 05/07/2025 HGBA1C 7.9 (A) 03/28/2025 HGBA1C 10.3 (A) 01/05/2025 HGBA1C 7.9 (A) 09/20/2024 HGBA1C 6.4 (H) 09/04/2024 HGBA1C 5.6 04/18/2024 -A1c goal </= 7.0% Medications: -Jardiance 10mg daily (SGLT2) -Lantus 23 units SQ nightly -Mounjaro 5mg subcutaneous weekly -Metformin 1000 mg BID -Lifestyle recommendations reviewed -Pt to follow up with [facility] Previous medications: - Ozempic (DC in May 2024 d/t SE - itching) - Trulicity (DC 03/28/25 d/t switch to Mounjaro) Assessment & Plan (07/15/2025 4:28 PM EST): - Consult with [facility] program for T2DM on 07/05/25. Decreased lantus to 23 units d/t AM hypoglycemia. Jardiance added to medbox. - CGM placement postponed due to current illness. - Scheduled nurse visit for CGM placement on July 24, 2025, at 1:30 PM in [place]. Assessment & Plan (05/07/2025 3:21 PM EDT): [...] MCKEON, or palpitations -Previously followed [place] [facility], pt will call to schedule f/u Lab Results Component Value Date TSH 0.33 04/05/2023 Insomnia 05/27/2016 Trigger finger 05/27/2016 Overview (05/28/2024): Followed by [facility] PRN Vitamin D deficiency 04/17/2014 Cobalamin deficiency 03/23/2014 Mixed anxiety and depressive disorder 10/06/2013 Assessment & Plan (05/28/2024 7:27 AM EST): -Following with psych team from [facility] -Continue with Wellbutrin 300mg daily, -Denies SI/HI/thoughts [...] Encounters Date Type Department Care Team Description 07/16/2025 Patient Outreach [facility] MEDICINE [address] [place] [address] Princess Min FNP Care Coordination (CHW outreach for SDOH PT-1 and food needs-LVM ) 07/13/2025 11:00 AM EST Office Visit [facility] MED & PEDS [address], [place] [phone] Princess Min FNP COVID-19 virus infection (Primary Dx); Type 2 diabetes mellitus with hyperglycemia, with long-term current use of insulin (HCC); Chronic diastolic heart failure (HCC); Transportation insecurity 07/13/2025 Travel 07/06/2025 Patient Outreach [facility] [address] [place] [address] Princess Min FNP Pre-visit Planning (SDOH completed) 07/05/2025 Travel 07/05/2025 Orders Only [facility] MEDICINE [address] [place] [address] Sandy Hanson MD Type 2 diabetes mellitus with hyperglycemia, with long-term current use of insulin (HCC) (Primary Dx) 07/05/2025 Telephone [facility] MED [facility] P[facility]S [address] [place] [address] Yee Bella PharmD 07/03/2025 Refill [facility] MED [facility] PEDS [address] [place] [address] Princess Min FNP Cobalamin deficiency 06/29/2025 Outside Procedure [facility] OPTOMETRY [address] [place] [address] Fransico, Gertrudis, OD Presbyopia (Primary Dx) 06/26/2025 Orders Only [facility] ADULT DENTAL [address], [place] [phone] Artie Gilliland, DMD 06/25/2025 10:00 AM EST Office Visit [facility] OPTOMETRY [address] [place] [address] Gertrudis Bateman, OD Myopia of both eyes (Primary Dx) 06/25/2025 Travel 06/20/2025 Refill [facility] MEDICINE [address] [place] [address] Princess Min FNP Arthritis of knee 06/07/2025 Refill [facility] MEDICINE [address] [place] [address] Princess Min FNP Pure hypercholesterolemia 06/07/2025 Refill [facility] MEDICINE [address] [place] [address] Princess Min FNP Pure hypercholesterolemia 06/06/2025 Refill [facility] MEDICINE [address] [place] [address] Naomy Aranda MD 05/23/2025 Telephone [facility] MEDICINE [address] [place] [address] Princess Min FNP Nurse Triage 05/21/2025 11:30 AM EDT Office Visit [facility] OPTOMETRY [address] [place] [address] Gertrudis Bateman, OD Type 2 diabetes mellitus without complication, with long-term current use of insulin (HCC) (Primary Dx); PCO (posterior capsular opacification), right; Meibomian gland disease of both eyes, unspecified eyelid; Pseudophakia of both eyes; Presbyopia 05/21/2025 Telephone [facility] MEDICINE [address] [place] [address] Princess Min FNP call back with xray results 05/21/2025 Travel 05/20/2025 Orders Only [facility] External Provider, [facility] 05/18/2025 1:45 PM EDT Office Visit [facility] MED [facility] PEDS [address], [place] [phone] Miguel Ángel Benavidez MD Injury of left knee, initial encounter (Primary Dx); Type 2 diabetes mellitus without complication, with long-term current use of insulin (HCC); Type 2 diabetes mellitus with hyperglycemia, with long-term current use of insulin (HCC); Left hip pain; Type 2 diabetes mellitus with hyperglycemia, unspecified whether jail insulin use (HCC) 05/18/2025 Travel 05/17/2025 Telephone [facility] MED [facility] PEDS [address] [place] [address] Princess Min FNP Nurse Triage 05/17/2025 Telephone [facility] MED [facility] PEDS [address] [place] [address] Princess Min FNP Letter for School/Work 05/15/2025 Refill [facility] MEDICINE [address] [place] [address] Princess Min FNP 05/14/2025 Refill [facility] MEDICINE [address] [place] [address] Princess Min FNP Chronic diastolic heart failure (HCC) 05/14/2025 Telephone [facility] MEDICINE [address] [place] [address] Princess Min FNP 05/14/2025 Travel 05/14/2025 Refill [facility] MEDICINE [address] [place] [address] Princess Min FNP Chronic diastolic heart failure (HCC) 05/14/2025 Refill [facility] MED [facility] PEDS [address] [place] [address] Corina Pina MD Chronic diastolic heart failure (HCC) 05/09/2025 Results Follow-Up [facility] MED [facility] PED[facility] [address] [place] [address] Princess Min FNP POCT glucose manually resulted, Hemoglobin A1c 05/09/2025 Telephone [facility] MEDICINE [address] [place] [address] Princess Min FNP Nurse Triage 05/09/2025 Telephone [facility] MED [facility] PEDS [address] [place] [address] Princess Min FNP 05/09/2025 Telephone [facility] MED [facility] PEDS [address] [place] [address] Princess Min FNP 05/07/2025 10:15 AM EDT Office Visit [facility] MED [facility] PEDS [address] [place] [address] Princess Min, BIANCA Type 2 diabetes mellitus without complication, with long-term current use of insulin (HCC) (Primary Dx); Moderate persistent asthma without complication; Routine health maintenance; Stress incontinence 05/07/2025 Travel 05/04/2025 Telephone [facility] MED & PEDS [address] [place] [address] Princess Min FNP Chart Prep 04/30/2025 Telephone [facility] MED & PEDS [address] [place] [address] Princess Min FNP Care Coordination (CP Care Plan) 04/24/2025 9:40 AM EDT Office Visit [facility] OPTOMETRY [address] [place], [place] [phone] Fransico, Gertrudis, OD Type 2 diabetes mellitus without complication, with long-term current use of insulin ([facility]/HCC) (Primary Dx) 04/24/2025 Travel 04/24/2025 Refill [facility] MEDICINE [address] [place], [place] [phone] Princess Min FNP Mild persistent asthma without complication from Last 3 Months Immunizations Immunization Administration [...] Access Q2 Not on file 03/27/2024 Comments No Sex and Gender Information Value Date Recorded Sex Assigned at Female 05/25/2022 10:15 AM EDT Legal Sex Female 10:15 AM EDT Gender Identity Female 05/25/2022 10:15 AM EDT Sexual Orientation Straight 05/25/2022 10 :15 AM EDT Last Filed Vital Signs Vital Sign Reading Time Taken Comments Blood Pressure 125/63 07/13/2025 11:03 AM EST Pulse 69 07/13/2025 11:03 AM EST Temperature 36.8 C (98.2 F) 07/13/2025 11:03 AM EST Respiratory Rate 22 07/13/2025 11:03 AM EST Oxygen Saturation 97% 07/13/2025 11:03 AM EST Inhaled Oxygen Concentration - - Weight 102 kg (224 lb) 07/13/2025 11:03 AM EST Height 154.9 cm (5' 1 ) 07/13/2025 11:03 AM EST Body Mass Index 42.32 07/13/2025 11:03 AM EST Plan of Treatment Upcoming Encounters Date Type Department Care Team (Late st Contact Info) Description 07/24/2025 1:30 PM EST Clinical Support [facility] MEDICINE [address] [place] [address] 08/01/2025 10:30 AM EST Medication Management [facility] PEDS [address] [place] [address] Yee Bella, GregD [address] [place] [address] Health Maintenance Due Date Last Done Comments CT Colonography 1965 Dental Oral Exam 1965 Dental Prophylaxis 1965 Dental X-Ray: Bitewings 1963 FIT DNA/Cologuard 1965 FIT 1965 FOBT 1965 Sigmoidoscopy 1963 Diabetes: Foot Exam 1973 Pap Smear [...] history exists Postponed from 03/26/2025 (Patient Refused) Disability Screening 07/13/2026 07/13/2025 Tobacco Screening 07/13/2026 07/13/2025 Eye Exam 05/21/2027 05/21/2025, 04/26, 05/21/2025, Additional [...] Patient has chronic kidney disease No Yee Bella, [place] Patient has chronic kidney disease Care Plan Patient has chronic kidney disease No Yee Bella PharmD Weekly blood pressure task Care Plan Weekly blood pressure task No Nahomi Blackburn MA Weekly blood pressure task Care Plan Weekly blood pressure task No Nahomi Blackburn MA Patient has chronic kidney disease Care Plan Patient has chronic kidney disease Nahomi Hernandez MA Patient has chronic kidney disease Care Plan Patient has chronic kidney disease Nahomi Hernandez MA Procedures Procedure Name Priority Date/Time Associated Diagnosis Comments POCT INFLUENZA B Routine 07/13/2025 11:2 7 AM EST COVID-19 virus infection POCT INFLUENZA A Routine 07/13/2025 11:2 7 AM EST COVID-19 virus infection POCT RAPID COVID ANTIGEN Routine 07/13/2025 11:26 AM EST COVID-19 virus infection POCT GLUCOSE (CPT-56365) Routine 07/13/2025 11:12 AM EST Type 2 diabetes mellitus with hyperglycemia, with long-term current use of insulin (HCC) XR KNEE 3 VIEWS LEFT Routine 05/20/2025 4:26 PM EDT XR HIP 2 OR 3 VIEWS LEFT Routine 05/20/2025 4:25 PM EDT POCT GLUCOSE (CPT-15354) Routine 05/18/2025 2:27 PM EDT Type 2 diabetes mellitus without complication, with long-term current use of insulin (HCC) HEMOGLOBIN A1C Routine 05/07/2025 11:39 AM EDT Type 2 diabetes mellitus without complication, with long-term current use of insulin (HCC) POCT GLUCOSE (CPT-20726) Routine 05/07/2025 10:56 AM EDT Type 2 [...] Relevant to Health Maintenance Results * POCT Rapid Influenza B OSOM (07/13/2025 11:27 AM EST) [facility] Rapid Influenza B Ag Negative Negative, Indeterminate QC Media Lot # [id number] Lot# Expiration Date Swab 07/13/2025 11:2 7 AM EST us Princess Min MANAGEMENT TECHNICIAN POINT OF CARE TEST ENTER/EDIT ORDERABLES Final Result * POCT Rapid Influenza A OSOM (07/13/2025 11:27 AM EST) [facility] Rapid Influenza A Ag Negative Negative, Indeterminate QC Media Lot # [id number] Lot# Expiration Date , Swab Nasopharyngeal structure / Unknown 07/13/2025 11:27 AM EST us Princess Min MANAGEMENT TECHNICIAN POINT OF CARE TEST ENTER/EDIT ORDERABLES Final Result * (ABNORMAL) POCT Rapid Covid-19 BinaxNOW (07/13/2025 11:26 AM EST) [facility] Rapid COVID Ag Positive QC Media Lot # [id number] Lot# Expiration Date ,026 Swab 07/13/2025 11:2 6 AM EST Princess Phalen MANAGEMENT TECHNICIAN POINT OF CARE TEST ENTER/EDIT ORDERABLES Final Result * POCT Glucose (07/13/2025 11:12 AM EST) Only the most recent of3 resultswithin the time period is included. Glucose Blood, POC 179 60 - 200 mg/dL QC Media Lot # [id number] Lot# Expiration Date [id number] Blood Capillary blood specimen / Unknown 07/13/2025 11:12 AM EST Princess Min MANAGEMENT TECHNICIAN POINT OF CARE TEST ENTER/EDIT ORDERABLES Final Result * XR Knee 3 Views Left (05/20/2025 4:26 PM EDT) Anatomical Region Laterality Modality Lower Extremities, Knee Left Radiogra phic Imaging 05/20/2025 4:26 PM EDT Narrative 05/20/2025 4:28 PM EDT [place] [address] XRay Report Signed Patient: Argelia Messina MR#: [id number] : 1965 Acct:[id number] Age/Sex: 59 / F ADM Date: 05/20/25 Loc: HO.ED Attending Dr: Ordering Physician: Cynthia Sandoval NP Date of Service: 05/20/25 Procedure(s): XR knee LT 3V Accession Number(s): [id number] cc: Cynthia Sandoval NP; Princess Min Reason for Exam: fall,. pain CLINICAL HISTORY: fall,. pain 4 view left knee Comparison: DX/[place]/SR - XR KNEE 3 VIEWS LEFT - [...] in OV> 05/20/251626 DD/ 25 TD/TT: 05/20/251625 Chainstitch Zipper Setter: Procedure Note Tracey, Sherin - 05/20/2025 [place] [address] XRay Report Signed Patient: Nini Messina#: [id number] : 1965Acct:[id number] Age/Sex: 59 / FADM Date: 05/20/25 Loc: HO.ED Attending Dr: Ordering Physician: Cynthia Sandoval NP Date of Service: 05/20/25 Procedure(s): XR knee LT 3V Accession Number(s): [id number] cc: Cynthia Sandoval SOCIAL MEDIA INTERN; Princess Min MANAGEMENT TECHNICIAN Reason for Exam: fall,. pain CLINICAL HISTORY: fall,. pain 4 view left knee Comparison: DX/[place]/SR - XR KNEE 3 VIEWS LEFT - [...] in OV> 05/20/251626 DD/ 25 TD/TT: 05/20/251625 Chainstitch Zipper Setter: [facility] External Provider IMG XR PROCEDURES Edited Result - Final * XR Hip 2 or 3 Views Left (05/20/2025 4:25 PM EDT) Anatomical Region Laterality Modality Lower Extremities, Hip Left Radiograp hic Imaging 05/20/2025 4:25 PM EDT Narrative 05/20/2025 4:27 PM EDT [address] [address] XRay Report Signed Patient: Argelia Messina MR#: [id number] : 1965 Acct:[id number] Age/Sex: 59 / F ADM Date: 05/20/25 Loc: HO.ED Attending Dr: Ordering Physician: Cynthia Sandoval NP Date of Service: 05/20/25 Procedure(s): XR hip LT min 2V Accession Number(s): [id number] cc: Cynthia Sandoval NP; Princess Min Reason [...] MD Signed By: <Electronically signed by Sanjuana Hadier MD in OV> 05/20/25 1626 DD/ 1625 TD/TT: 05/20/25 1625 Chainstitch Zipper Setter: Procedure Note Donotuseinterpreter, Image - 05/20/[address] [address] XRay Report Signed Patient: Brennon MessinaR#: [id number] : 1965Acct:[id number] Age/Sex: 59 / FADM Date: 05/20/25 Loc: HO.ED Attending Dr: Ordering Physician: Cynthia Sandoval NP Date of Service: 05/20/25 Procedure(s): XR hip LT min 2V Accession Number(s): [id number] cc: Cynthia Sandoval SOCIAL MEDIA INTERN; Princess Min MANAGEMENT TECHNICIAN Reason for Exam: fall, pain CLINICAL [...] in OV> 05/20/251625 DD/ 24 TD/TT: 05/20/251624 Chainstitch Zipper Setter: [facility] External Provider IMG XR PROCEDURES Edited Result - Final * (ABNORMAL) Hemoglobin A1c (05/07/2025 11:39 AM EDT) Hemoglobin A1c 9.2(H) <6.0 % [facility] Comment:Hemoglobin A1C Refer ence Range Adults: 4.8 - 6.0 % Non diabetic: < 6.0 % Goal: < 7.0 %Additional Action Suggested: > 8.0 %Note: Hemoglobin A1c results are invalid for patients with abnormal amounts of HbF. Blood transfusions may impact the HbA1c concentration in the patient sample. Estimated Average Glucose 217 mg/dL [facility] Comment:eAG = Estimated ave rage glucose which is %A1C expressed asaverage glucose, using the formula of the P2F-LtrnqsaKgnvafw Glucose study (ADAG), Diabetes Care, Vol.31,#8,Aug. 2007 Blood Venous blood specimen / Unknown 05/07/2025 11:39 AM EDT 05/07/2025 2:14 PM EDT Princess Min MANAGEMENT TECHNICIAN LAB BLOOD ORDERABLES Final Res ult [facility] [address] [place] [phone] * Albumin, Random Urine W/Creatinine (09/18/2024 11:31 AM EST) Creatinine, Urine 65.49 mg/dL [facility] Microalbumin Urine 8.0 mg/L [facility] Microalbum Creatinine Ratio Ur 12.2 <30 ug/mg cr [facility] Comment:Albumin/Creatinine R atio Reference Ranges: Normal: < 30 ug/mg creatinine Microalbuminuria: 30 - 300 ug/mg creatinineClinical Albuminuria: > 300 ug/mg creatinine Urine 09/18/2024 11:3 1 AM EST 09/18/2024 2:41 PM EST Princess Min [facility] URINE ORDERABLES Final Res ult Performing Organization Address [facility] Co de Phone Number [facility] [address] [place] [phone] * Hepatitis C Viral RNA, Quantitative, Real-Time PCR (09/18/2024 11:22 AM EST) Hepatitis C Viral Load <15 NOT DETECTED NOT DETECTED IU/mL [facility] HCV Log PCR <1.18 NOT DETECTED NOT DETECTED Log IU/mL [facility] Comment:For additional infor gillian, please refer tohttp://education.Lvmama/faq/FEQ46h5(This link is being provided for informational/educational purposes only.)THIS TEST WAS PERFORMED AT:[facility] [place] [id number] GARCIA MD Blood 09/18/2024 11:2 2 AM EST 09/18/2024 2:41 PM EST Princess Min [facility] BLOOD ORDERABLES Final Res ult Performing Organization Address [facility] Co de Phone Number [facility] [address] [place] [phone] * HIV-1/2 Antigen and Antibodies, Fourth Generation, with Reflexes (09/18/2024 11:22 AM EST) HIV AB/AG Nonreactive Nonreactive [facility] Comment:HIV-1 p24 Ag and/or HIV-1/HIV-2 Ab not detected.A test result that is nonreactive does not exclude thepossibility of exposure to or infection with HIV-1 and/orHIV-2. Nonreactive results in this assay for individualswith prior exposure to HIV-1 and/or HIV-2 may be due toantigen and antibody levels that are below the limit ofdetection of this assay.The TripOvation HIV Ag/Ab Combo assay result andsupplemental assay results should be interpreted inconjunction with the patient's clinical presentation,history and other laboratory results. If the results areinconsistent with clinical evidence, additional testing issuggested to confirm the result. Blood Venous blood specimen / Unknown 09/18/2024 11:22 AM EST 09/18/2024 2:41 PM EST us Princess Min [facility] BLOOD ORDERABLES Final Res ult [facility] [address] [place] [phone] * Lipid Panel, Standard (09/18/2024 11:02 AM EST) Triglycerides 136 <150 mg/dL [facility] Comment:Desirable Triglyceri de: less than 150 mg/dLBorderline High Triglyceride 150-199 mg/dLHigh Triglyceride: 200-499 mg/dLVery High Triglyceride: greater than or equal to 5OO mg/dL Cholesterol 156 <200 mg/dL [facility] Comment:Desirable Cholestero l: less than 200 mg/dLBorderline High Cholesterol: 200-239 mg/dLHigh Cholesterol: greater than 239 mg/dL LDL Cholesterol Calculated 75 <100 mg/dL [facility] Comment:Desirable LDL: less than 100 mg/dLNear Optimal/Above Optimal LDL: 110- 129 mg/dLBorderline High LDL: 130-159 mg/dLHigh LDL: 160-189 mg/dLVery High LDL: greater than or equal to 190 mg/dL HDL Cholesterol 54 >40 mg/dL [facility] Comment:Desirable HDL: great er than 40 mg/dL Note: This HDL assay may give artificially low results in patients with liver disease. Blood Venous blood specimen / Unknown 09/18/2024 11:02 AM EST 09/18/2024 2:41 PM EST Princess [facility] LAB BLOOD ORDERABLES Final Res ult [facility] [address] [place] [phone] * BI Mammogram Screening Tomosynthesis Bilateral (02/09/2023 11:07 AM EDT) Anatomical Region Laterality Modality Breast Bilateral Mammography 02/09/2023 11:0 7 AM EDT Narrative 03/05/2023 6:25 AM EDT [facility] [address] [place] [address] Mammography Report Signed Patient: Argelia Messina MR#: [id number] : 1965 Acct:[id number] Age/Sex: 57 / F ADM Date: 02/09/23 Loc: HO.MAMMO Attending Dr: Princess VALENZUELA Ordering Physician: Princess Min Results: Date of Service: 02/09/23 Follow Up: Procedure(s): MM tomosynthesis screening BI Accession Number(s): [id number] cc: Princess Min EXAMINATION: MM SCREENING DIGITAL [...] by Margo Shankar MD in OV> 03/05/23 06 DD/ 1107 TD/TT: Chainstitch Zipper Setter: Procedure Note Donotuseinterpreter, Image - 03/05/2023 [facility] [address] [place] [address] Mammography Report Signed Patient: Nini Messina#: [id number] : 1965Acct:[id number] Age/Sex: 57 / FADM Date: 02/09/23 Loc: HO.MAMMO Attending Dr: Princess Min MANAGEMENT TECHNICIAN Ordering Physician: Princess MinPResults: Date of Service: 02/09/23Follow Up: Procedure(s): MM tomosynthesis screening BI Accession Number(s): [id number] cc: Princess Min MANAGEMENT TECHNICIAN EXAMINATION: MM SCREENING DIGITAL BREAST TOMOSYNTHESIS, [...] in OV> 03/05/23 0623 DD/ 1107 TD/TT: Chainstitch Zipper Setter: Princess Min MANAGEMENT TECHNICIAN IMG BI PROCEDURES Final Result * Colonoscopy [...] kidney disease 07/05/2025 Weekly blood pressure task 07/13/2025 Weekly blood pressure task 07/13/2025 Patient has chronic kidney disease 07/13/2025 Patient has chronic kidney disease 07/13/2025 Insurance [employer] [facility] ST[facility] ADULT Care Teams Barkeeper Relationship Specialty Start Date End Date Princess Min FNP [address] [place] [address] PCP - General Family Medicine 02/10/24 Yee Bella PharmD [address] [place], [place] Pharmacist Pharmacy 07/05/25 Cherelle Roy NanotechnologistChef Saucier 01/24/25 Christine Villaseñor NanotechnologistChef Saucier 04/30/25
--- OUTSIDE RECORDS SUMMARY | 2025-07-21 16:09 | XMS_ITS | Encounter Summary ---
Author Organization [employer] Address [address] [facility] 7t [place] [address] Care Team Providers Care Temperature Inspector Name Role Phone Princess Min Primary Care Provider [phone] Princess Min Primary Care Provider [phone] Princess Min Primary Care Provider [phone] Yee Bella PharmD Unavailable [phone] Reason for Visit * Reason Onset Date Comments Appointment Request 11/20/2022 Encounter Details Date Type Department Care Team ([facility] st Contact Info) Description 11/20/2022 Telephone [facility] MEDICINE [address] [place] [address] Princess Min FNP [address] [place], [place] [phone] Appointment Request Social History Tobacco Use Types [...] to switching program. Please contact pt at [phone] Andorran Speaker documented in this encounter Plan of Treatment Upcoming Encounters Date Type Department Care Team (Late st Contact Info) Description 07/24/2025 1:30 PM EST Clinical Support [facility] MEDICINE [address] [place] [address] 08/01/2025 10:30 AM EST Medication Management [facility] MED & PEDS [address] [place] [address] Yee Bella PharmD [address] [place] [address] documented as of this encounter Visit Diagnoses Not on filedocumented in this encounter Additional Health Concerns Assessment Noted Time PHQ-9 Depression Total Score: 24 023 9:25 AM EDT documented as of this encounter Care Teams Temperature Inspector Relationship Specialty Start Date End Date Princess Min FNP [address] [place] [address] PCP - General Family Medicine 03/20/22 12/26/23 Princess Min FNP [address] [place] [address] PCP - General Family Medicine 01/21/24 02/03/24 Princess Min FNP [address] [place] [address] PCP - General Family Medicine 02/10/24 Yee Bella PharmD [address] [place] [address] Pharmacist Pharmacy 07/05/25 Cherelle Roy Border Patrol OfficerDie Keeper 01/24/25 Christine Villaseñor Border Patrol OfficerDie Keeper 04/30/25 documented as of this encounter
--- OUTSIDE RECORDS SUMMARY | 2025-07-21 16:09 | XMS_ITS | Encounter Summary ---
Author Organization [employer] Address 75 [facility] 7t [place] [address] Care Team Providers Care Bumper Machine Operator Name Role Phone Princess Min Primary Care Provider [phone] Princess Min Primary Care Provider [phone] Princess Min Primary Care Provider [phone] Yee Bella PharmD Unavailable [phone] Reason for Visit * Reason Onset Date Comments PT1 11/20/2022 Encounter Details Date Type Department Care Team (Late st Contact Info) Description 11/20/2022 Telephone [facility] [address] [place] [address] Princess Min FNP [address] [place], [place] [phone] PT1 Social History Tobacco Use Types Packs/Day [...] / denial letter via mail. PT-1 Request [id number] Authorized - [facility] [address] [address] * Telephone Encounter - Mayur Thomas - 11/20/2022 9:19 AM EDT Tc from pt requesting to Renew PT1 for Name of facility: n/a Specialty: All Future appts Location: [address] [place] [address] Date: n/a Time: n/a fax: n/a Phone: n/a wheelchair: n/a Hospice Consultant: Yes (Adult) For all future appts documented in this encounter Plan of Treatment Upcoming Encounters Date Type Department Care Team (Late st Contact Info) Description 07/24/2025 1:30 PM EST Clinical Support [facility] [address] [place] [address] 08/01/2025 10:30 AM EST Medication Management [facility] MED & PEDS [address] [place] [address] Yee Bella PharmD [address] [place] [address] documented as of this encounter Visit Diagnoses Not on filedocumented in this encounter Additional Health Concerns Assessment Noted Time PHQ-9 Depression Total Score: 24 023 9:25 AM EDT documented as of this encounter Care Teams Bumper Machine Operator Relationship Specialty Start Date End Date Princess Min FNP [address] [place] [address] PCP - General Family Medicine 03/20/22 12/26/23 Princess Min FNP [address] [place] [address] PCP - General Family Medicine 01/21/24 02/03/24 Princess Min FNP [address] [place] [address] PCP - General Family Medicine 02/10/24 Yee Bella, PharmD [address] [place] [address] Pharmacist Pharmacy 07/05/25 Cherelle Roy Supervisor Melt HouseHuman Resources Executive Assistant 01/24/25 Christine Villaseñor Supervisor Melt HouseHuman Resources Executive Assistant 04/30/25 documented as of this encounter
--- OUTSIDE RECORDS SUMMARY | 2025-07-21 16:09 | XMS_ITS | Encounter Summary ---
Author Organization [email or web address] Address [address] [facility] 7t [place] [address] Care Team Providers Care Investigation Manager Name Role Phone Princess Min Primary Care Provider [phone] Yee Bella PharmD Unavailable [phone] Reason for Visit * Reason Onset Date Comments Med Refill 02/11/2024 Encounter Details Date Type Department Care Team ([facility] st Contact Info) Description 02/11/2024 Telephone [facility] MEDICINE [address] [place] [address] Princess Min FNP [address] [place], [place] [phone] Med Refill Social History Tobacco Use Types [...] 1:02 PM EDT Medication was sent to [facility] Pharmacy on 11/29/23 with 3 refills. * Telephone Encounter - Drake Levy - 02/11/2024 11:57 AM EDT TC from pt requesting medication refill. Medications needing refill : Asmanex HFA 200 MCG/ACT aerosol To be sent to: [facility] - [place], [place] - [address] [place] [address] documented in this encounter Plan of Treatment Upcoming Encounters Date Type Department Care Team (Late st Contact Info) Description 07/24/2025 1:30 PM EST Clinical Support [facility] MEDICINE [address] [place] [address] 08/01/2025 10:30 AM EST Medication Management [facility] CH[facility] MED & PEDS [address] [place] [address] Yee Bella, PharmD [address] [place] [address] documented as of this encounter Visit Diagnoses Not on filedocumented in this encounter Additional Health Concerns Assessment Noted Time PHQ-9 Depression Total Score: 10 023 10:39 AM EDT documented as of this encounter Care Teams Investigation Manager Relationship Specialty Start Date End Date Princess Min FNP [address] [place] [address] PCP - General Family Medicine 02/10/24 Yee Bella PharmD [address] [place] [address] Pharmacist Pharmacy 07/05/25 Cherelle Roy Host/Hostess RestaurantSoap Inspector 01/24/25 Christine Villaseñor Host/Hostess RestaurantSoap Inspector 04/30/25 documented as of this encounter
--- OUTSIDE RECORDS SUMMARY | 2025-07-21 16:09 | XMS_ITS | Encounter Summary ---
Author Organization [employer] Address 75 [facility] 7t [place] [address] Care Team Providers Care Cardroom Supervisor Name Role Phone Princess Min Primary Care Provider [phone] Princess Min Primary Care Provider Princess Min Primary Care Provider [phone] Yee Bella PharmD Unavailable [phone] Reason for Visit * Reason Onset Date Comments Durable Medical Equipment 10/27/2022 Encounter Details Date Type Department Care Team (Late st Contact Info) Description 10/27/2022 Telephone [facility] MEDICINE [address] [place] [address] Princess Min FNP [address] [place], [place] [phone] Durable Medical Equipment Social History Tobacco Use [...] shower head, script to be send to [facility]. documented in this encounter Plan of Treatment Upcoming Encounters Date Type Department Care Team (Late st Contact Info) Description 07/24/2025 1:30 PM EST Clinical Support [facility] MEDICINE [address] [place] [address] 08/01/2025 10:30 AM EST Medication Management [facility] MED & PEDS [address] [place] [address] Yee Bella PharmD [address] [place] [address] documented as of this encounter Visit Diagnoses Not on filedocumented in this encounter Care Teams Cardroom Supervisor Relationship Specialty Start Date End Date Princess Min FNP [address] [place] [address] PCP - General Family Medicine 03/20/22 12/26/23 Princess Min FNP [address] [place] [address] PCP - General Family Medicine 01/21/24 02/03/24 Princess Min FNP [address] [place] [address] PCP - General Family Medicine 02/10/24 Yee Bella PharmD [address] [place] [address] Pharmacist Pharmacy 07/05/25 Cherelle Roy Hospice Music TherapistSoil Engineer 01/24/25 Christine Villaseñor Hospice Music TherapistSoil Engineer 04/30/25 documented as of this encounter
--- OUTSIDE RECORDS SUMMARY | 2025-07-21 16:09 | XMS_ITS | Encounter Summary ---
Author Organization [employer] Address 75 [facility] 7t [place] [address] Care Team Providers Care Trading Floor Operator Name Role Phone Princess Min Primary Care Provider Princess Min Primary Care Provider [phone] Yee Bella PharmD Unavailable [phone] Reason for Visit * Reason Comments Med Refill Encounter Details Date Type Department Care Team ([facility] st Contact Info) Description 02/03/2024 Refill [facility] [address] [place] [address] Princess Min FNP [address] [place], [place] [phone] Hypothyroidism, unspecified type Social History Tobacco Use [...] Description 07/24/2025 1:30 PM EST Clinical Support [facility] MEDICINE [address] [place] [address] 08/01/2025 10:30 AM EST Medication Management [facility] MED & PEDS [address] [place] [address] Yee Bella PharmD [address] [place] [address] documented as of this encounter Visit Diagnoses Diagnosis Hypothyroidism, unspecified type documented in this encounter Additional Health Concerns Assessment Noted Time PHQ-9 Depression Total Score: 10 023 10:39 AM EDT documented as of this encounter Care Teams Trading Floor Operator Relationship Specialty Start Date End Date Princess Min FNP [address] [place] [address] PCP - General Family Medicine 01/21/24 02/03/24 Princess Min FNP [address] [place] [address] PCP - General Family Medicine 02/10/24 Yee Bella PharmD [address] [place] [address] Pharmacist Pharmacy 07/05/25 Cherelle Roy Senior Operations AnalystBudget And Policy Analyst 01/24/25 Christine Villaseñor Senior Operations AnalystBudget And Policy Analyst 04/30/25 documented as of this encounter
--- OUTSIDE RECORDS SUMMARY | 2025-07-21 16:10 | XMS_ITS | Encounter Summary ---
Author Organization [employer] Address 75 [facility] 7t [place] [address] Care Team Providers Care Airport Duty Manager Name Role Phone Princess Min Primary Care Provider [phone] Princess Min Primary Care Provider [phone] Yee Bella PharmD Unavailable [phone] Reason for Visit * Reason Comments Med Change Request Encounter Details Date Type Department Care Team ([facility] Contact Info) Description 12/28/2023 Refill [facility] MED & PEDS [address] [place], [place] [phone] Princess Min FNP [address] [place], [place] [phone] Social History Tobacco Use Types Packs/Day Years [...] Description 07/24/2025 1:30 PM EST Clinical Support [facility] MEDICINE [address] [place] [address] 08/01/2025 10:30 AM EST Medication Management [facility] MED & PEDS [address] [place] [address] Yee Bella PharmD 230 [place] [address] documented as of this encounter Visit Diagnoses Not on filedocumented in this encounter Additional Health Concerns Assessment Noted Time PHQ-9 Depression Total Score: 10 02/05/ 023 10:39 AM EDT documented as of this encounter Care Teams Airport Duty Manager Relationship Specialty Start Date End Date Princess Min FNP [address] [place] [address] PCP - General Family Medicine 01/21/24 02/03/24 Princess Min FNP [address] [place] [address] PCP - General Family Medicine 02/10/24 Yee Bella PharmD [address] [place] [address] Pharmacist Pharmacy 07/05/25 Cherelle Roy Jailer ChiefBalloon Dipper 01/24/25 Christine Villaseñor Jailer ChiefBalloon Dipper 04/30/25 documented as of this encounter
--- OUTSIDE RECORDS SUMMARY | 2025-07-21 16:10 | XMS_ITS | Encounter Summary ---
Author Organization [employer] Address [address] [facility] 7t [place] [address] Care Team Providers Care Plumber Assistant Name Role Phone Princess Min Primary Care Provider [phone] Yee Bella PharmD Unavailable [phone] Reason for Visit * Reason Onset Date Comments call back with xray results 05/21/2025 Encounter Details Date Type Department Care Team ([facility] st Contact Info) Description 05/21/2025 Telephone [facility] MEDICINE [address] [place] [address] Princess Min FNP [address] [place] [address] call back with xray results Social History [...] Description 07/24/2025 1:30 PM EST Clinical Support [facility] MEDICINE [address] [place] [address] 08/01/2025 10:30 AM EST Medication Management [facility] MED & PEDS [address] [place] [address] Yee Bella, GregD [address] [place] [address] documented as of this encounter Visit Diagnoses Not on filedocumented in this encounter Additional Health Concerns Assessment Noted Time PHQ-9 Depression Total Score: 9 03/28/20 11:35 AM EDT documented as of this encounter Care Teams Plumber Assistant Relationship Specialty Start Date End Date Princess Min FNP [address] [place] [address] PCP - General Family Medicine 02/10/24 Yee Bella, PharmD [address] [place] [address] Pharmacist Pharmacy 07/05/25 Cherelle Roy Pension AgentPocket And Pulley Machine Operator 01/24/25 Christine Villaseñor Pension AgentPocket And Pulley Machine Operator 04/30/25 documented as of this encounter
--- OUTSIDE RECORDS SUMMARY | 2025-07-21 16:10 | XMS_ITS | Encounter Summary ---
Author Organization [employer] Address [address] [facility] 7t [place] [address] Care Team Providers Care Automotive Parts Advisor Name Role Phone Princess Min Primary Care Provider [phone] Yee Bella PharmD Unavailable [phone] Reason for Visit * Reason Onset Date Comments Nurse Triage 09/27/2024 Encounter Details Date Type Department Care Team ([facility] st Contact Info) Description 09/27/2024 Telephone [facility] MEDICINE [address] [place] [address] Princess Min FNP [address] [place] [address] Nurse Triage Social History Tobacco Use Types [...] pt to triage, spoke to pt. through state road technical service representative. pt states went for surgery this morning, [...] distress. given appt with PCP Wednesday in [facility] at 11:15 for exam and [...] above 300 The caller accepted this outcome. [phone] [place] Pt states had knee surgery today but it couldn't be performed because the indicated that the wheezing should be checked first since he didn't know what could be happening with the pt and it couldinteract with the anesthesia. documented in this encounter Plan of Treatment Upcoming Encounters Date Type Department Care Team ([facility] st Contact Info) Description 07/24/2025 1:30 PM EST Clinical Support [facility] MEDICINE [address] [place] [address] 08/01/2025 10:30 AM EST Medication Management [facility]EDS [address] [place], [place] [phone] Yee Bella, [place] [address] [place] [address] documented as of this encounter Visit Diagnoses Not on filedocumented in this encounter Additional Health Concerns Assessment Noted Time PHQ-9 Depression Total Score: 3 03/03/20 24 11:33 AM EDT documented as of this encounter Care Teams Automotive Parts Advisor Relationship Specialty Start Date End Date Princess Min FNP [address] [place] [address] PCP - General Family Medicine 02/10/24 Yee Bella, PharmD [address] [place] [address] Pharmacist Pharmacy 07/05/25 Cherelle Roy Wetlands TechnicianHospice Registered Nurse 01/24/25 Christine Villaseñor Wetlands TechnicianHospice Registered Nurse 04/30/25 documented as of this encounter
--- OUTSIDE RECORDS SUMMARY | 2025-07-21 16:10 | XMS_ITS | Encounter Summary ---
Author Organization [employer] Address 75 [facility] 7t [place] [address] Care Team Providers Care Business Line Manager Name Role Phone Princess Min Primary Care Provider [phone] Princess Min Primary Care Provider Yee Bella PharmD Unavailable [phone] Encounter Details Date Type Department Care Team (Late st Contact Info) Description 12/28/2023 Telephone [facility] MEDICINE [address] [place] [address] Princess Min FNP [address] [place], [place] [phone] Social History Tobacco Use Types Packs/Day Years [...] Description 07/24/2025 1:30 PM EST Clinical Support [facility] MEDICINE [address] [place] [address] 08/01/2025 10:30 AM EST Medication Management [facility] MED & PEDS [address] [place] [address] Yee Bella PharmD [address] [place] [address] documented as of this encounter Visit Diagnoses Not on filedocumented in this encounter Additional Health Concerns Assessment Noted Time PHQ-9 Depression Total Score: 10 023 10:39 AM EDT documented as of this encounter Care Teams Business Line Manager Relationship Specialty Start Date End Date Princess Min FNP [address] [place] [address] PCP - General Family Medicine 01/21/24 02/03/24 Princess Min FNP [address] [place] [address] PCP - General Family Medicine 02/10/24 Yee Bella PharmD [address] [place] [address] Pharmacist Pharmacy 07/05/25 Cherelle Roy Chief Reservoir EngineeringManager Supplier 01/24/25 Christine Villaseñor Chief Reservoir EngineeringManager Supplier 04/30/25 documented as of this encounter
--- OUTSIDE RECORDS SUMMARY | 2025-07-21 16:10 | XMS_ITS | Encounter Summary ---
Author Organization [employer] Address [address] [facility] 7t [place] [address] Care Team Providers Care Warehouse Picker Name Role Phone Princess Min FILAMENT SHAPER Primary Care Provider [phone] Yee Bella PharmD Unavailable [phone] Reason for Visit * Reason Onset Date Comments Letter for School/Work 05/17/2025 Encounter Details Date Type Department Care Team ([facility] Contact Info) Description 05/17/2025 Telephone [facility] CHC MED & PEDS [address] [place], [place] [phone] Princess Min FNP [address] [place], [place] [phone] Letter for School/Work Social History Tobacco Use [...] letter. Call was disconnected. Contact pt at [phone] documented in this encounter Plan of Treatment Upcoming Encounters Date Type Department Care Team (Late st Contact Info) Description 07/24/2025 1:30 PM EST Clinical Support [facility] MEDICINE [address] [place], [place] [phone] 08/01/2025 10:30 AM EST Medication Management [facility] CHC MED & PEDS [address] [place] [address] Yee Bella, PharmD 230 [place], [place] [phone] documented as of this encounter Visit Diagnoses Not on filedocumented in this encounter Additional Health Concerns Assessment Noted Time PHQ-9 Depression Total Score: 9 03/28/20 25 11:35 AM EDT documented as of this encounter Care Teams Warehouse Picker Relationship Specialty Start Date End Date Princess Min FNP 230 [place] [address] PCP - General Family Medicine 02/10/24 Yee Bella PharmD 230 [place] [address] Pharmacist Pharmacy 07/05/25 Cherelle Roy Firefighting Equipment SpecialistLegal Secretary 01/24/25 Christine Villaseñor Firefighting Equipment SpecialistLegal Secretary 04/30/25 documented as of this encounter
--- OUTSIDE RECORDS SUMMARY | 2025-07-21 16:10 | XMS_ITS | Encounter Summary ---
Author Organization [employer] Address [address] [facility] 7t [place] [address] Care Team Providers Care Pasting Machine Offbearer Name Role Phone Princess Min Primary Care Provider [phone] Yee Bella PharmD Unavailable Reason for Visit * Reason Comments Med Refill Encounter Details Date Type Department Care Team ([facility] st Contact Info) Description 05/15/2025 Refill [facility] MEDICINE 230 [place] [address] Princess Min FNP 505 [place] [address] Social History Tobacco Use Types Packs/Day Years [...] the past 12 months, has t he [employer], gas, oil or water company threatened to [...] Description 07/24/2025 1:30 PM EST Clinical Support [facility] MEDICINE 230 [place] [address] 08/01/2025 10:30 AM EST Medication Management [facility] MED & PEDS 505 [place] [address] Yee Bella PharmD 230 [place] [address] documented as of this encounter Visit Diagnoses Not on filedocumented in this encounter Additional Health Concerns Assessment Noted Time PHQ-9 Depression Total Score: 9 03/28/20 25 11:35 AM EDT documented as of this encounter Care Teams Pasting Machine Offbearer Relationship Specialty Start Date End Date Princess Min FNP 230 [place] [address] PCP - General Family Medicine 02/10/24 Yee Bella, PharmD 230 [place] [address] Pharmacist Pharmacy 07/05/25 Cherelle Roy Jailer/Training OfficerEngagement Director 01/24/25 Christine Villaseñor Jailer/Training OfficerEngagement Director 04/30/25 documented as of this encounter
--- OUTSIDE RECORDS SUMMARY | 2025-07-21 16:10 | XMS_ITS | Encounter Summary ---
Author Organization [employer] Address [address] [facility] 7t [place] [address] Care Team Providers Care Deposition Reporter Name Role Phone Princess Min Primary Care Provider [phone] Princess Min Primary Care Provider [phone] Princess Min Primary Care Provider [phone] Yee Bella PharmD Unavailable [phone] Reason for Visit * Reason Comments Med Refill Encounter Details Date Type Department Care Team ([facility] st Contact Info) Description 06/14/2023 Refill [facility] MEDICINE 230 [place] [address] Princess Min FNP 505 [place], [place] [phone] Social History Tobacco Use Types Packs/Day Years [...] Description 07/24/2025 1:30 PM EST Clinical Support [facility] MEDICINE [address] [place] [address] 08/01/2025 10:30 AM EST Medication Management [facility] MED & PEDS 505 [place] [address] Yee Bella, PharmD 230 [place] [address] documented as of this encounter Visit Diagnoses Not on filedocumented in this encounter Additional Health Concerns Assessment Noted Time PHQ-9 Depression Total Score: 10 023 10:39 AM EDT documented as of this encounter Care Teams Deposition Reporter Relationship Specialty Start Date End Date Princess Min FNP [address] [place] [address] PCP - General Family Medicine 03/20/22 12/26/23 Princess Min FNP [address] [place] [address] PCP - General Family Medicine 01/21/24 02/03/24 Princess Min FNP [address] [place] [address] PCP - General Family Medicine 02/10/24 Yee Bella, PharmD 230 [place] [address] Pharmacist Pharmacy 07/05/25 Cherelle Roy Cash Surrender CalculatorEnvironmental Scientists 01/24/25 Christine Villaseñor Cash Surrender CalculatorEnvironmental Scientists 04/30/25 documented as of this encounter
--- OUTSIDE RECORDS SUMMARY | 2025-07-21 16:10 | XMS_ITS | Encounter Summary ---
Author Organization [employer] Address [address] [facility] 7t [place] [address] Care Team Providers Care Plant Anatomy Teacher Name Role Phone Princess Min Primary Care Provider [phone] Yee Bella PharmD Unavailable [phone] Reason for Visit * Reason Comments Care Coordination CHW outreach for SDO H PT-1 and food needs-LVM Encounter Details Date Type Department Care Team (Latest Contact Info) Description 07/16/2025 Patient Outreach [facility] MEDICINE 230 [place] [address] Princess Min FNP 505 [place] [address] Care Coordination (CHW outreach for SDOH PT-1 and food needs-LVM ) Social History Tobacco Use Types Packs/Day Years [...] as of this encounter Progress Notes * Minor Toro - 07/16/2025 10:07 AM EST CHW Minor Toro, placed outbound call to patient for assistance with SDOH as a referral was placed by the provider. Patient had screened positive for the following SDOH housing insecurities. Patient did not answer at this time. Patient's name and were not confirmed. CHW left detailed message and provided contact information requesting return call for more assistance. documented in this encounter Plan of Treatment Upcoming Encounters Date Type Department Care Team ([facility] st Contact Info) Description 07/24/2025 1:30 PM EST Clinical Support [address] [address] 08/01/2025 10:30 AM EST Medication Management [facility] MED & PEDS 505 [place] [address] Yee Bella PharmD 230 [place] [address] documented as of this encounter Goals Goal Patient Goal Type Associated Problems Recent Progress Patient-Stated? Author Help patients manage their type 2 diabetes Care Plan Help patients manage their type 2 diabetes Sanyd Dinero MD Weekly blood pressure task Care [...] Plan Patient has chronic kidney disease No Nahomi Blackburn MA Patient has chronic kidney disease Care Plan Patient has chronic kidney disease No Nahomi Blackburn MA documented as of this encounter Visit Diagnoses [...] 07/13/2025 Patient has chronic kidney disease 07/13/2025 Assessment Noted Time PHQ-9 Depression Total Score: 9 03/28/20 11:35 AM EDT documented as of this encounter Care Teams Plant Anatomy Teacher Relationship Specialty Start Date End Date Princess Min FNP [address] [place] [address] PCP - General Family Medicine 02/10/24 Yee Bella PharmD 230 [place] [address] Pharmacist Pharmacy 07/05/25 Cherelle Roy Bi SpecialistData Base Administrator 01/24/25 Christine Villaseñor Bi SpecialistData Base Administrator 04/30/25 documented as of this encounter
--- OUTSIDE RECORDS SUMMARY | 2025-07-21 16:10 | XMS_ITS | Encounter Summary ---
Author Organization [employer] Address [address] [facility] 7t [place] [address] Care Team Providers Care Instrument Person Name Role Phone Princess Min Primary Care Provider [phone] Princess Min Primary Care Provider [phone] Princess Min Primary Care Provider [phone] Yee Bella PharmD Unavailable [phone] Reason for Visit * Reason Onset Date Comments PCP Switch 06/22/2023 Encounter Details Date Type Department Care Team ([facility] st Contact Info) Description 06/22/2023 Telephone [facility] MEDICINE 230 [place] [address] Princess Min FNP 505 [place], [place] [phone] PCP Switch Social History Tobacco Use Types [...] be seen by a doctor not a SCAFFOLD BUILDER aligner typewriter did express that it will be sometime before the change can take place patient is aware and ok with response. documented in this encounter Plan of Treatment Upcoming Encounters Date Type Department Care Team (Late st Contact Info) Description 07/24/2025 1:30 PM EST Clinical Support [facility] MEDICINE 230 [place] [address] 08/01/2025 10:30 AM EST Medication Management [facility] CHC MED & PEDS [address] [place] [address] Yee Bella PharmD 230 [place] [address] documented as of this encounter Visit Diagnoses Not on filedocumented in this encounter Additional Health Concerns Assessment Noted Time PHQ-9 Depression Total Score: 10 023 10:39 AM EDT documented as of this encounter Care Teams Instrument Person Relationship Specialty Start Date End Date Princess Min FNP 230 [place] [address] PCP - General Family Medicine 03/20/22 12/26/23 Princess Min FNP 230 [place] [address] PCP - General Family Medicine 01/21/24 02/03/24 Princess Min FNP 230 [place] [address] PCP - General Family Medicine 02/10/24 Yee Bella, GregD 230 [place] [address] Pharmacist Pharmacy 07/05/25 Cherelle Roy Tax Services InternAnswering Service Operator 01/24/25 Christine Villaseñor Tax Services InternAnswering Service Operator 04/30/25 documented as of this encounter
--- OUTSIDE RECORDS SUMMARY | 2025-07-21 16:10 | XMS_ITS | Encounter Summary ---
Author Organization [employer] Address [address] [facility] 7t [place] [address] Care Team Providers Care Supply Service Worker Name Role Phone Princess Min Primary Care Provider [phone] Princess Min Primary Care Provider [phone] Yee Bella PharmD Unavailable [phone] Reason for Visit * Reason Comments Med Change Request Encounter Details Date Type Department Care Team ([facility] Contact Info) Description 12/30/2023 Refill [facility] MED & PEDS 505 [place], [place] [phone] Princess Min FNP 505 [place], [place] [phone] Social History Tobacco Use Types Packs/Day Years [...] Clinical Support [facility] MEDICINE 230 [place] [address] 08/01/2025 10:30 AM EST Medication Management [facility] CHC MED & PEDS 505 [place] [address] Yee Bella, PharmD 230 [place] [address] documented as of this encounter Visit Diagnoses Not on filedocumented in this encounter Additional Health Concerns Assessment Noted Time PHQ-9 Depression Total Score: 10 023 10:39 AM EDT documented as of this encounter Care Teams Supply Service Worker Relationship Specialty Start Date End Date Princess Min FNP 230 [place] [address] PCP - General Family Medicine 01/21/24 02/03/24 Princess Min FNP 230 [place] [address] PCP - General Family Medicine 02/10/24 Yee Bella PharmD 230 [place] [address] Pharmacist Pharmacy 07/05/25 Cherelle Roy Home Care SpecialistUndercollar Baster 01/24/25 Christine Villaseñor Home Care SpecialistUndercollar Baster 04/30/25 documented as of this encounter
--- OUTSIDE RECORDS SUMMARY | 2025-07-21 16:10 | XMS_ITS | Encounter Summary ---
Author Organization [employer] Address 75 [facility] 7t [place] [address] Care Team Providers Care Freelance Translator Name Role Phone Princess Min Primary Care Provider [phone] Yee Bella PharmD Unavailable Reason for Visit * Reason Onset Date Comments Med Refill 07/13/2024 Encounter Details Date Type Department Care Team ([facility] st Contact Info) Description 07/13/2024 Telephone [facility] MEDICINE 230 [place] [address] Princess Min FNP [address] [place] [address] Med Refill Social History Tobacco Use Types [...] 7:46 PM EST She is not on LUMP ROLLER, would need appt to discuss pain control. [...] for the pain. Please contact pt at [phone]. documented in this encounter Plan of Treatment Upcoming Encounters Date Type Department Care Team (Late st Contact Info) Description 07/24/2025 1:30 PM EST Clinical Support [facility] MEDICINE 230 [place] [address] 08/01/2025 10:30 AM EST Medication Management [facility] MED & PEDS [address] [place] [address] Yee Bella PharmD 230 [place] [address] documented as of this encounter Visit Diagnoses Not on filedocumented in this encounter Additional Health Concerns Assessment Noted Time PHQ-9 Depression Total Score: 3 03/03/20 24 11:33 AM EDT documented as of this encounter Care Teams Freelance Translator Relationship Specialty Start Date End Date Princess Min FNP 230 [place] [address] PCP - General Family Medicine 02/10/24 Yee Bella, [place] [address] [place] [address] Pharmacist Pharmacy 07/05/25 Cherelle Roy Flight Test EngineerTearoom Hostess 01/24/25 Christine Villaseñor Flight Test EngineerTearoom Hostess 04/30/25 documented as of this encounter
--- OUTSIDE RECORDS SUMMARY | 2025-07-21 16:10 | XMS_ITS | Encounter Summary ---
Author Organization [employer] Address [address] [facility] 7t [place] [address] Care Team Providers Care Engineering Supervisor Name Role Phone Princess Min Primary Care Provider [phone] Princess Min Primary Care Provider [phone] Princess Min Primary Care Provider [phone] Yee Bella PharmD Unavailable [phone] Reason for Visit * Reason Comments Med Refill Encounter Details Date Type Department Care Team (Late Contact Info) Description 08/07/2022 Refill [facility] MEDICINE 230 [place], [place] [phone] Princess Min FNP 505 [place], [place] [phone] Cervical spondylosis Social History Tobacco Use Types [...] Description 07/24/2025 1:30 PM EST Clinical Support [facility] MEDICINE 230 [place], [place] [phone] 08/01/2025 10:30 AM EST Medication Management [facility] CHC MED & PEDS 505 [place] [address] Yee Bella PharmD 230 [place] [address] documented as of this encounter Visit Diagnoses Diagnosis Cervical spondylosis Cervical spondylosis without myelopathy documented in this encounter Care Teams Engineering Supervisor Relationship Specialty Start Date End Date Princess Min FNP [address] [place] [address] PCP - General Family Medicine 03/20/22 12/26/23 Princess Min FNP [address] [place] [address] PCP - General Family Medicine 01/21/24 02/03/24 Princess Min FNP [address] [place] [address] PCP - General Family Medicine 02/10/24 Yee Bella, GregD [address] [place] [address] Pharmacist Pharmacy 07/05/25 Cherelle Roy Rubber Gasket Inspector TrimmerDeputy Prosecuting Attorney 01/24/25 Christine Villaseñor Rubber Gasket Inspector TrimmerDeputy Prosecuting Attorney 04/30/25 documented as of this encounter
--- OUTSIDE RECORDS SUMMARY | 2025-07-21 16:10 | XMS_ITS | Encounter Summary ---
Author Organization [employer] Address [address] [facility] 7t [place] [address] Care Team Providers Care Animal Care Taker Name Role Phone Princess Min Primary Care Provider [phone] Yee Bella PharmD Unavailable [phone] Reason for Visit * Reason Onset Date Comments Durable Medical Equipment 09/12/2024 Encounter Details Date Type Department Care Team ([facility] st Contact Info) Description 09/12/2024 Telephone [facility] MEDICINE 230 [place] [address] Princess Min FNP [address] [place] [address] Durable Medical Equipment Social History Tobacco Use [...] 1:30 PM EST Clinical Support [facility] MEDICINE [address] [place] [address] 08/01/2025 10:30 AM EST Medication Management [facility] CHC MED & PEDS 505 [place] [address] Yee Bella, PharmD 230 [place], [place] [phone] documented as of this encounter Visit Diagnoses Not on filedocumented in this encounter Additional Health Concerns Assessment Noted Time PHQ-9 Depression Total Score: 3 03/03/20 24 11:33 AM EDT documented as of this encounter Care Teams Animal Care Taker Relationship Specialty Start Date End Date Princess Min FNP 230 [place] [address] PCP - General Family Medicine 02/10/24 Yee Bella PharmD 230 [place] [address] Pharmacist Pharmacy 07/05/25 Cherelle Roy Marine Engine MechanicBusher Helper 01/24/25 Christine Villaseñor Marine Engine MechanicBusher Helper 04/30/25 documented as of this encounter
--- OUTSIDE RECORDS SUMMARY | 2025-07-21 16:10 | XMS_ITS | Encounter Summary ---
Author Organization [employer] Address 75 [facility] 7t [place] [address] Care Team Providers Care Desulfurizer Hand Name Role Phone Princess Min Primary Care Provider [phone] Princess Min Primary Care Provider [phone] Yee Bella PharmD Unavailable [phone] Reason for Visit * Reason Comments Med Refill Encounter Details Date Type Department Care Team ([facility] st Contact Info) Description 01/02/2024 Refill [facility] MEDICINE 230 [place] [address] Princess Min FNP [address] [place], [place] [phone] Social History Tobacco Use Types Packs/Day Years [...] Description 07/24/2025 1:30 PM EST Clinical Support [facility] MEDICINE [address] [place] [address] 08/01/2025 10:30 AM EST Medication Management [facility] MED & PEDS 505 [place] [address] Yee Bella PharmD 230 [place] [address] documented as of this encounter Visit Diagnoses Not on filedocumented in this encounter Additional Health Concerns Assessment Noted Time PHQ-9 Depression Total Score: 10 023 10:39 AM EDT documented as of this encounter Care Teams Desulfurizer Hand Relationship Specialty Start Date End Date Princess Min FNP [address] [place] [address] PCP - General Family Medicine 01/21/24 02/03/24 Princess Min FNP [address] [place] [address] PCP - General Family Medicine 02/10/24 Yee Bella PharmD [address] [place] [address] Pharmacist Pharmacy 07/05/25 Cherelle Roy Skin Care InstructorRetail Merchandising Manager 01/24/25 Christine Villaseñor Skin Care InstructorRetail Merchandising Manager 04/30/25 documented as of this encounter
--- OUTSIDE RECORDS SUMMARY | 2025-07-21 16:10 | XMS_ITS | Encounter Summary ---
Author Organization [employer] Address [address] [facility] 7t [place] [address] Care Team Providers Care Otr Tanker Truck Driver Name Role Phone Princess Min Primary Care Provider [phone] Yee Bella PharmD Unavailable [phone] Reason for Visit * Reason Comments Med Refill Encounter Details Date Type Department Care Team ([facility] st Contact Info) Description 11/09/2024 Refill [facility] CHC MED & PEDS 505 [place], [place] [phone] Princess Min FNP 505 [place] [address] History of total knee arthroplasty, left Social [...] Description 07/24/2025 1:30 PM EST Clinical Support [facility] MEDICINE 230 [place] [address] 08/01/2025 10:30 AM EST Medication Management [facility] CHC MED & PEDS [address] [place] [address] Yee Bella PharmD 230 [place] [address] documented as of this encounter Visit Diagnoses Diagnosis History of total knee arthroplasty, left documented in this encounter Additional Health Concerns Assessment Noted Time PHQ-9 Depression Total Score: 3 03/03/20 24 11:33 AM EDT documented as of this encounter Care Teams Otr Tanker Truck Driver Relationship Specialty Start Date End Date Princess Min FNP [address] [place] [address] PCP - General Family Medicine 02/10/24 Yee Bella, GregD [address] [place] [address] Pharmacist Pharmacy 07/05/25 Cherelle Roy Celluloid TrimmerShow Host/Hostess 01/24/25 Christine Villaseñor Celluloid TrimmerShow Host/Hostess 04/30/25 documented as of this encounter
--- OUTSIDE RECORDS SUMMARY | 2025-07-21 16:10 | XMS_ITS | Encounter Summary ---
Author Organization [employer] Address 75 [facility] 7t [place] [address] Care Team Providers Care Physical Security Engineer Name Role Phone Princess Min Primary Care Provider [phone] Yee Bella PharmD Unavailable Reason for Visit * Reason Onset Date Comments FYI 07/13/2024 Encounter Details Date Type Department Care Team ([facility] st Contact Info) Description 07/13/2024 Telephone [facility] MEDICINE 230 [place] [address] Princess Min FNP [address] [place] [address] FYI Social History Tobacco Use Types Packs/Day [...] Upcoming Encounters Date Type Department Care Team ([facility] st Contact Info) Description 07/24/2025 1:30 PM EST Clinical Support [facility] MEDICINE [address] [place] [address] 08/01/2025 10:30 AM EST Medication Management [facility] CHC MED & PEDS 505 [place] [address] Yee Bella, GregD 230 [place] [address] documented as of this encounter Visit Diagnoses Not on filedocumented in this encounter Additional Health Concerns Assessment Noted Time PHQ-9 Depression Total Score: 3 03/03/20 24 11:33 AM EDT documented as of this encounter Care Teams Physical Security Engineer Relationship Specialty Start Date End Date Princess Min FNP [address] [place] [address] PCP - General Family Medicine 02/10/24 Yee Bella PharmD 230 [place] [address] Pharmacist Pharmacy 07/05/25 Cherelle Roy License And Permit SpecialistMaster Sonar Technician 01/24/25 Christine Villaseñor License And Permit SpecialistMaster Sonar Technician 04/30/25 documented as of this encounter
--- OUTSIDE RECORDS SUMMARY | 2025-07-21 16:10 | XMS_ITS | Encounter Summary ---
Author Organization [employer] Address [address] [facility] 7t [place] [address] Care Team Providers Care Software Quality Specialist Name Role Phone Princess Min Primary Care Provider [phone] Princess Min Primary Care Provider [phone] Princess Min Primary Care Provider [phone] Yee Bella PharmD Unavailable [phone] Reason for Visit * Reason Onset Date Comments PT1 04/27/2023 Encounter Details Date Type Department Care Team (Late st Contact Info) Description 04/27/[address] [facility] [address] [place] [address] Princess Min FNP [address] [place], [place] [phone] PT1 Social History Tobacco Use Types Packs/Day [...] Certification of Serious Illness is ready for picked edge sewing machine operator at medical records. * Telephone Encounter - Barbie Montanez - 04/28/2023 3:58 PM EDT PT-1 submitted for patient. They will receive a letter of approval or denial in the mail. * Telephone Encounter - Velia Berry - 04/27/2023 4:43 PM EDT Tc form pt requesting PT1 Date: 05/06/23 Time: 10 AM address: [address] [place] [id number] specialty: Psychologist # visits: n/a in file operator: no Wheelchair: no documented in this encounter Plan of Treatment Upcoming Encounters Date Type Department Care Team (Late st Contact Info) Description 07/24/2025 1:30 PM EST Clinical Support [facility] [address] [place] [address] 08/01/2025 10:30 AM EST Medication Management [facility] [address] [place] [address] Yee Bella, PharmD [address] [place] [address] documented as of this encounter Visit Diagnoses Not on filedocumented in this encounter Additional Health Concerns Assessment Noted Time PHQ-9 Depression Total Score: 10 02/05/ 023 10:39 AM EDT documented as of this encounter Care Teams Software Quality Specialist Relationship Specialty Start Date End Date Princess Min FNP [address] [place] [address] PCP - General Family Medicine 03/20/22 12/26/23 Princess Min FNP [address] [place] [address] PCP - General Family Medicine 01/21/24 02/03/24 Princess Min FNP [address] [place] [address] PCP - General Family Medicine 02/10/24 Yee Bella PharmD [address] [place] [address] Pharmacist Pharmacy 07/05/25 Cherelle Roy Shingle CutterRapid Outsole Stitcher 01/24/25 Christine Villaseñor Shingle CutterRapid Outsole Stitcher 04/30/25 documented as of this encounter
--- OUTSIDE RECORDS SUMMARY | 2025-07-21 16:10 | XMS_ITS | Encounter Summary ---
Author Organization [employer] Address [address] [facility] 7t [place] [address] Care Team Providers Care Administrative Services Specialist Name Role Phone Princess Min Primary Care Provider [phone] Yee Bella PharmD Unavailable [phone] Reason for Visit * Reason Comments Med Refill Encounter Details Date Type Department Care Team ([facility] st Contact Info) Description 07/17/2024 Refill [facility] [address] [place], [place] [phone] Princess Min FNP [address] [place] [address] Acute otitis externa of left ear, unspecified [...] Description 07/24/2025 1:30 PM EST Clinical Support [facility] [address] [place] [address] 08/01/2025 10:30 AM EST Medication Management [facility] MED & PEDS [address] [place] [address] Yee Bella PharmD [address] [place] [address] documented as of this encounter Visit Diagnoses Diagnosis Acute otitis externa of left ear, unspecified type Intermittent diarrhea documented in this encounter Additional Health Concerns Assessment Noted Time PHQ-9 Depression Total Score: 3 03/03/20 24 11:33 AM EDT documented as of this encounter Care Teams Administrative Services Specialist Relationship Specialty Start Date End Date Princess Min FNP [address] [place] [address] PCP - General Family Medicine 02/10/24 Yee Bella, PharmD [address] [place] [address] Pharmacist Pharmacy 07/05/25 Cherelle Roy Technical ManagerTimber Bucker 01/24/25 Christine Villaseñor Technical ManagerTimber Bucker 04/30/25 documented as of this encounter
--- OUTSIDE RECORDS SUMMARY | 2025-07-21 16:10 | XMS_ITS | Encounter Summary ---
Author Organization [employer] Address [address] [facility] 7t [place] [address] Care Team Providers Care Monotype Operator Name Role Phone Princess Min Primary Care Provider [phone] Princess Min Primary Care Provider [phone] Princess Min Primary Care Provider [phone] Yee Bella PharmD Unavailable [phone] Reason for Visit * Reason Onset Date Comments Appointment Request 08/03/2022 Encounter Details Date Type Department Care Team ([facility] st Contact Info) Description 08/03/2022 Telephone [facility] MEDICINE [address] [place] [address] Princess Min FNP [address] [place], [place] [phone] Appointment Request Social History Tobacco Use Types [...] 12:26 PM EST Returned pt call via P/I#[id number], pt cancelled todays DISTRICT MANAGER [employer] appt scheduled 11am. Pt previously cancelled 07/16/22 [employer]NAGER [employer] appt. Attempted to reschedule appt, offered 3 alternate times. 08/04/22, pt stated she will be in [place] for her sisters and back by 5pm. Offered her a time on 08/05/22, pt stated she doesn't know when she will be back. Offered her an appt today, 1 hour from now, before she leaves for [place]. She said she will be long on her way to [place]. Reminded pt that she must attend these appointments to continue to receive her oxycodone script and that per her DISTRICT MANAGER POSTAL SERVICE agreement she must come in within 24 hours for a random urine. Pt stated she will call back when she is available to reschedule. Will FYI PCP. * Telephone Encounter - Jareth Cifuentes - 08/03/2022 11:54 AM EST Tc from pt requesting to r/s appt 08/03/22 ( DISTRICT MANAGER [employer]AL [employer]) pt states not able to come due to a lost in the family. Please contact pt at [phone] documented in this encounter Plan of Treatment Upcoming Encounters Date Type Department Care Team (Late st Contact Info) Description 07/24/2025 1:30 PM EST Clinical Support [facility] MEDICINE [address] [place] [address] 08/01/2025 10:30 AM EST Medication Management [facility] [address] [place] [address] Yee Bella PharmD [address] [place] [address] documented as of this encounter Visit Diagnoses Not on filedocumented in this encounter Care Teams Monotype Operator Relationship Specialty Start Date End Date Princess Min FNP [address] [place] [address] PCP - General Family Medicine 03/20/22 12/26/23 Princess Min FNP [address] [place] [address] PCP - General Family Medicine 01/21/24 02/03/24 Princess Min FNP [address] [place] [address] PCP - General Family Medicine 02/10/24 Yee Bella, GregD [address] [place] [address] Pharmacist Pharmacy 07/05/25 Cherelle Roy Dish Up PersonDisaster Recovery Manager 01/24/25 Christine Villaseñor Dish Up PersonDisaster Recovery Manager 04/30/25 documented as of this encounter
--- OUTSIDE RECORDS SUMMARY | 2025-07-21 16:10 | XMS_ITS | Encounter Summary ---
Author Organization [employer] Address [address] [facility] 7t [place] [address] Care Team Providers Care Aluminum Polisher Name Role Phone Princess Min SUSTAIN ENGINEER Primary Care Provider [phone] Yee Bella PharmD Unavailable [phone] Encounter Details Date Type Department Care Team (Late st Contact Info) Description 01/22/2025 Refill [facility] [address] [place], [place] [phone] Princess Min FNP [address] [place] [address] Social History Tobacco Use Types Packs/Day Years [...] Description 07/24/2025 1:30 PM EST Clinical Support [facility] [address] [place] [address] 08/01/2025 10:30 AM EST Medication Management [facility] [address] [place] [address] Yee Bella PharmD [address] [place] [address] documented as of this encounter Visit Diagnoses Not on filedocumented in this encounter Additional Health Concerns Assessment Noted Time PHQ-9 Depression Total Score: 3 03/03/20 24 11:33 AM EDT documented as of this encounter Care Teams Aluminum Polisher Relationship Specialty Start Date End Date Princess Min FNP [address] [place] [address] PCP - General Family Medicine 02/10/24 Yee Bella PharmD [address] [place] [address] Pharmacist Pharmacy 07/05/25 Cherelle Roy LaunchmanMotor Setter 01/24/25 Christine Villaseñor LaunchmanMotor Setter 04/30/25 documented as of this encounter
--- OUTSIDE RECORDS SUMMARY | 2025-07-21 16:10 | XMS_ITS | Encounter Summary ---
Author Organization [employer] Address [address] [facility] 7[address] [place] [address] Care Team Providers Care Scrub Tech Name Role Phone Princess Min Primary Care Provider [phone] Yee Bella PharmD Unavailable [phone] Reason for Visit * Reason Comments Med Refill Encounter Details Date Type Department Care Team ([facility] st Contact Info) Description 09/15/2024 Refill [facility] MEDICINE [address] [place], [place] [phone] Princess Min FNP [address] [place] [address] Social History Tobacco Use Types Packs/Day Years [...] Description 07/24/2025 1:30 PM EST Clinical Support [facility] MED[facility]INE [address] [place] [address] 08/01/2025 10:30 AM EST Medication Management [facility] MED & PEDS [address] [place] [address] Yee Bella PharmD [address] [place] [address] documented as of this encounter Visit Diagnoses Not on filedocumented in this encounter Additional Health Concerns Assessment Noted Time PHQ-9 Depression Total Score: 3 03/03/20 24 11:33 AM EDT documented as of this encounter Care Teams Scrub Tech Relationship Specialty Start Date End Date Princess Min FNP [address] [place] [address] PCP - General Family Medicine 02/10/24 Yee Bella, GregD [address] [place] [address] Pharmacist Pharmacy 07/05/25 Cherelle Roy Industrial CleanerAssociate Director Of Nursing 01/24/25 Christine Villaseñor Industrial CleanerAssociate Director Of Nursing 04/30/25 documented as of this encounter
--- NOTE | 2025-07-21 16:11 | ED.GENADULT ---
HPI - General Adult General Chief complaint: Dyspnea Stated complaint: SOB hx Asthma currently on Neb trmt o2 100% Time Seen by Provider: 07/21/25 15:29 Source: patient and EMS Mode of arrival: EMS Limitations: no limitations History of Present Illness ED Provider: GURINDER Saab HPI narrative: Chief Complaint: ?I?ve had fatigue, body aches, and shortness of breath for the past few days.? History of Present Illness: 59-year-old female with a history of hypothyroidism, diabetes mellitus, obesity, chronic bilateral (R > L) knee pain, asthma, congestive heart failure, and nicotine dependence who presents to the emergency department with several days of fatigue, malaise, myalgias, wheezing and shortness of breath. She reports these symptoms have been going on for about 3-4 days. She arrived via ambulance, where she was given a nebulizer treatment by EMS en route, and was saturating 100% on room air on arrival.She reports slight improvment in symptoms Related Data Home Medications ?Medication ?Instructions ?Recorded ?Confirmed bupropion HCl 300 mg 24 hr tablet, 300 mg PO QAM 05/16/20 06/04/25 extended release (Wellbutrin XL) furosemide 20 mg tablet (Lasix) 20 mg PO DAILY 05/16/20 06/04/25 levothyroxine 150 mcg tablet 150 mcg PO MOTUWETHFRSA@0600 05/16/20 06/04/25 montelukast 10 mg tablet 10 mg PO QPM 05/16/20 06/04/25 (Singulair) insulin glargine 100 unit/mL (3 30 unit subcut BEDTIME 11/05/22 06/04/25 mL) subcutaneous pen (Lantus Solostar U-100 Insulin) irbesartan 300 mg tablet 300 mg PO DAILY 11/05/22 06/04/25 lancets 33 gauge (TRUEplus Lancets) #100 ea 11/05/22 06/04/25 pen needle, diabetic 32 gauge x #50 ea 11/05/22 06/04/25 (Pentips Pen Needle) lidocaine 5 % topical patch 1 patch topical DAILY PRN Pain 05/28/23 06/04/25 (Lidoderm) pantoprazole 20 mg tablet,delayed 20 mg PO QAM 05/28/23 06/04/25 release amitriptyline 50 mg tablet 50 mg PO BEDTIME 08/15/24 11/10/25 carvedilol 3.125 mg tablet 3.125 mg PO BEDTIME 03/09/24 06/04/25 clonazepam 0.5 mg tablet 0.5 mg PO TID PRN Anxiety 03/09/24 06/04/25 cyanocobalamin (vitamin B-12) 1,000 mcg PO DAILY 03/09/24 06/04/25 1,000 mcg tablet melatonin 5 mg tablet 10 mg PO BEDTIME PRN Insomnia 03/09/24 06/04/25 naloxone 4 mg/actuation nasal spray 1 spray intranasal DAILY PRN 03/09/24 06/04/25 Opiate Reversal topiramate 200 mg tablet 200 mg PO BEDTIME 03/09/24 06/04/25 albuterol sulfate 2.5 mg/3 mL 2.5 mg inhalation Q4-6H PRN 09/04/24 06/04/25 (0.083 %) solution for nebulization Shortness Of Breath Or Wheezing albuterol sulfate 90 mcg/actuation 2 puff inhalation BID Shortness Of 09/04/24 06/04/25 aerosol inhaler (Ventolin HFA) Breath Or Wheezing Previous Rx's ?Medication ?Instructions ?Recorded blood-glucose meter (FreeStyle #1 ea 11/18/23 Lite Meter kit) diclofenac sodium 1 % topical gel 2 g topical QID #100 grams 12/14/23 (Voltaren Arthritis Pain) cane #1 ea 12/24/23 walker #1 ea 07/05/24 fluticasone furoate 200 1 ea PO DAILY #60 ea 07/02/25 mcg-vilanterol 25 mcg/dose inhalation powder (Breo Ellipta) Allergies Allergy/AdvReac Type Severity Reaction Status Date / Time cortisone (CORTISONE) Allergy Intermediate ELEVATES Verified 07/21/25 15:24 BLOOD SUGAR ibuprofen (IBUPROFEN) Allergy Intermediate GI UPSET, Verified 07/21/25 15:24 stomach upset mayonnaise (MAYONNAISE) Allergy Mild RASH Verified 07/21/25 15:24 naproxen (NAPROXEN) AdvReac Intermediate STOMACH Verified 07/21/25 15:24 UPSET Vicodin Allergy Unknown palpitation Uncoded 07/21/25 15:24 s,hypertens ion Cortisone AdvReac Unknown hyperglycem Uncoded 07/21/25 15:24 ia Review of Systems Review of Systems: Yes all other systems are reviewed and are negative [facility] Past Medical History Attestation statement: The following information was validated with the patient. Source: old records reviewed and nursing notes reviewed Medical History CHF (congestive heart failure) Back pain Arthritis Anemia GERD (gastroesophageal reflux disease) History of headache Osteoarthritis of knees, bilateral Depression Asthma High cholesterol Hypothyroidism Type 2 diabetes mellitus Bilateral carpal tunnel syndrome Fibromyalgia Chronic diarrhea Drug induced constipation Surgical History History of total left knee replacement History of total right knee replacement (TKR) Hx of bilateral cataract extraction History of esophagogastroduodenoscopy (EGD) H/O colonoscopy Hx of hand surgery History of cholecystectomy (~2011) S/p bilateral carpal tunnel release (~2003) Hx of laparoscopic adjustable gastric banding (~2009) History of removal of laparoscopic gastric banding device (~10/2012) H/O: hysterectomy (~10/2012) Family History Family History Mother No problems noted. Father Cancer Sister Breast cancer Social History Social History Household Members: Family Household Members Other:: sister Housing: House Are you a primary rn progressive care unit to a significant other at home: No Do you presently have visiting nurse or other home services: Yes (QUESTIONED DOCUMENTS EXAMINER) Alcohol intake: current Alcohol intake frequency: holidays/special occasions only Comment: COUNTS CORRECT Patient Tobacco Use Status: Current everyday Tobacco user Tobacco use type: Cigarette Cigarettes Per Day: 3 Years Smoked: 47 Smoked in Last 30 Days: Yes Use of substances other than those prescribed or required for medical reasons: No Advance Directives: No Advance Directives Information Provided: No Do you have a plan to hurt others: No Plan Patient : No service: No Current occupational status: disabled Physical Exam ED Exam Exam: Appearance: Alert.? Oriented X3.? No acute distress.? Head: Normocephalic, atraumatic, no step-offs or deformities Eyes: Pupils equal, round and reactive to light.? Neck: Normal inspection.? Neck supple.? CVS: Normal heart rate and rhythm.? Pulses normal.? Respiratory: No respiratory distress.? Breath sounds w/ crackles .? Abdomen: Soft and nontender.? Skin: Skin warm and dry.? Normal skin color.? Normal skin turgor.? Extremities: No lower extremity edema.? No calf ttp. 5/5 strength to bilateral upper and lower extremities Back: No midline tenderness, no C-spine tenderness, full range of motion, no CVA tenderness bilaterally Neuro: Oriented X 3.? No motor deficit.? No sensory deficit. CN 2-12 intact Vital Signs: Vital Signs - 24 hr 07/21/25 15:19 07/21/25 15:31 07/21/25 16:43 Temperature 99.0 F 99.0 F Pulse Rate 84 84 88 Respiratory Rate 20 20 18 Blood Pressure 148/55 H 148/55 H 124/65 Pulse Oximetry 96 96 93 Oxygen Delivery Method Room Air Room Air Room Air 07/21/25 16:57 Temperature Pulse Rate 82 Respiratory Rate 22 H Blood Pressure Pulse Oximetry Oxygen Delivery Method BMI result Body Mass Index 42.3 vss Course Reevaluation(s) Reevaluation #1: Chest x-ray no acute findings. No cardiomegaly. Patient is not in acute fluid overload on exam. Will give her a 5 mg albuterol treatment as well as magnesium and Solu-Medrol and patient will be discharged home she is saturating well on room air. She did test positive for influenza A. She is out of the 48 hour charanjit for Tamiflu. Time: 16:49 Reevaluation #2: Ambulatory trial patient's saturated known to 92%. With labored breathing and had to sit down therefore making it an unsuccessful trial. Time: 16:50 Reevaluation #3: Plan at this time is hospital admission. Time: 18:08 Medications Administered Generic Name Dose Route Start Last Admin Trade Name Freq PRN Reason Stop Dose Admin Magnesium Sulfate 2 gm in 50 mls @ 25 mls/hr 07/21/25 16:45 07/21/25 17:30 Magnesium Sulfate/H2o IV 07/21/25 18:44 Infused ONCE ONE Infusion Discontinued Medications Generic Name Dose Route Start Last Admin Trade Name Freq PRN Reason Stop Dose Admin Albuterol Sulfate 2.5 mg/ 0 mg 07/21/25 16:50 07/21/25 16:57 Albuterol/Ipratropium 3 ml INHALE 07/21/25 16:51 1 dose ONCE ONE Administration Methylprednisolone Sodium Succinate 125 mg 07/21/25 16:45 07/21/25 16:58 Methylprednisolone Sod Succ 125 Mg/2 Ml Vial IVPUSH 07/21/25 16:46 125 mg ONCE ONE Administration Medical Decision Making Medical Decision Making MDM Narrative: Assessment & Plan Asthma exacerbation Order chest X-ray to evaluate for possible complications or alternative diagnoses. Order viral testing (influenza, RSV, COVID-19) to assess for infectious triggers. Patient tested positive for influenza A. Initiate bronchial protocol: administer nebulized bronchodilators per ED protocol. Monitor respiratory status closely, with frequent reassessment for signs of worsening distress or hypoxia. Rationale: Patient with history of asthma and CHF presenting with acute respiratory symptoms and mild wheezing, requiring prompt evaluation for infectious and non-infectious triggers, and aggressive management to prevent decompensation. Upper respiratory infection (URI) Order chest X-ray to rule out pneumonia or other lower respiratory tract involvement. Order viral testing (influenza, RSV, COVID-19) to identify causative pathogens. Patient tested positive for influenza A. Supportive care as indicated, including antipyretics, hydration, and monitoring for complications. Rationale: Patient with multiple comorbidities at increased risk for complications from viral respiratory infections, including influenza. Early identification and supportive management are essential. Additional management steps: Continuous monitoring of vital signs and oxygen saturation. Reassessment after interventions (nebulizer, supportive care). Consideration of admission if respiratory status worsens or comorbidities complicate recovery. Differential Diagnosis Differential Diagnoses: The differential diagnosis associated with the presentation includes Differential Diagnosis Pneumonia: Considered due to acute respiratory symptoms and comorbidities (asthma, CHF, diabetes, obesity). Evaluation includes chest X-ray (ordered, results pending) and assessment for focal findings on exam (no rales/rhonchi, no consolidation noted). Absence of fever and hypoxia reduces likelihood, but cannot be excluded until imaging is reviewed. COPD Exacerbation: Patient has a history of asthma and nicotine dependence, but no documented COPD. Mild wheezing present, but no increased sputum production or chronic cough reported. COPD exacerbation less likely but considered in the context of smoking history. Heart Failure Exacerbation: History of CHF increases risk. No lower extremity edema, no rales, and oxygen saturation is normal. No evidence of volume overload on exam. Chest X-ray will further evaluate for pulmonary congestion. Pulmonary Embolism: Acute onset of dyspnea and risk factors (obesity, CHF, diabetes) warrant consideration. However, absence of chest pain, hemoptysis, tachycardia, or hypoxia makes PE less likely at this time. Will reassess if clinical status changes. Other causes of respiratory symptoms: Viral upper respiratory infection (influenza A positive), asthma exacerbation, and possible CHF exacerbation are primary considerations. Other causes (e.g., acute bronchitis, viral pneumonia) will be considered based on evolving clinical and diagnostic data. Admission/Observation Consideration of admission/observation: Escalation of care including admission/observation considered Lab Data MDM Lab Attestation statement: I reviewed the patient's lab results. Influnza + 07/21/25 17:27 07/21/25 17:27 Labs: Lab Results 07/21/25 07/21/25 Range/Units 15:37 17:27 WBC 7.1 (4.8-10.8) X10*3/uL RBC 4.24 (4.20-5.50) X10*6/uL Hgb 12.6 (12.0-16.0) g/dl Hct 38.0 (37.0-47.0) % MCV 89.6 (80.0-98.0) fL MCH 29.7 (27.0-33.0) pg MCHC 33.2 (31.0-35.0) g/dl RDW 13.6 (11.0-16.0) % Plt Count 206 (160-400) X10*3/uL MPV 10.0 (9.4-12.3) fL Immature Gran % (Auto) 0.7 H (0.0-0.4) % Neut % (Auto) 81.5 H (45-73) % Lymph % (Auto) 11.1 L (20-40) % [place] % (Auto) 5.6 (2-11) % Eos % (Auto) 0.8 (0-4) % Baso % (Auto) 0.3 (0-2) % Lymph # (Auto) 0.8 L (1.2-4.9) X10*3/uL [place] # (Auto) 0.4 (0.1-1.2) X10*3/uL Eos # (Auto) 0.1 (0.0-0.4) X10*3/uL Baso # (Auto) 0.0 (0.0-0.2) X10*3/uL Abs Immat Gran (auto) 0.05 H (0.00-0.03) X10*3/uL Absolute Neuts (auto) 5.8 (2.0-8.3) x10*3/uL Absolute Nucleated RBC 0.000 (0.0-0.012) X10*3/uL Nucleated RBC % (auto) 0.0 (0.0-0.2) /100WBC Sodium 143 (135-145) mmol/L Potassium 2.9 L* D (3.3-5.1) mmol/L Chloride 110 H (96-108) mmol/L Carbon Dioxide 23 (22-29) mmol/L Anion Gap 13 (12-20) BUN 10 (9-16) mg/dL Creatinine 0.97 (0.5-1.4) mg/dL Estim Creat Clear Calc 69.3 Estimated GFR 58 Random Glucose 116 H (60-115) mg/dL Calcium 8.7 (8.4-10.2) mg/dL Total Bilirubin 0.5 (0.0-1.0) mg/dL AST 26 (5-31) U/L ALT 29 (0-31) U/L Alkaline Phosphatase 85 (39-117) U/L Troponin I High Sens 6.7 (<3.5-17.0) ng/L NT-Pro-B Natriuret Pep 138.2 (<300) pg/mL Total Protein 6.7 (6.5-8.0) g/dL Albumin 3.9 (3.5-5.0) g/dL Influenza Type A (PCR) POSITIVE A (Negative) Influenza Type B (PCR) NEGATIVE (Negative) RSV RNA Qual (PCR) NEGATIVE (Negative) SARS-CoV-2 RNA (RT-PCR) NEGATIVE (Negative) Independent Interpretation I performed an independent interpretation of an: EKG (Normal sinus rhythm Cannot rule out Anterior infarct , age undetermined Abnormal ECG When compared with ECG of 04-Sep-2024 11:23, Nonspecific T wave abnormality, worse in Inferior leads Nonspecific T wave abnormality, worse in Lateral leads QT has lengthened) and Plain X-Ray (Impression: No acute findings.) Radiology Impression Discussion of test interpretation with radiology: I have reviewed the radiologist's reading. Independent Historian Clinical information obtained from an independent historian. History obtained from or confirmed by: EMS External Record Review External record reviewed: Inpatient record, Office record, Outpatient record, Prior outpatient labs, Prior outpatient radiology, Primary care record and Outside ED record Chronic Conditions Patient?s care impacted by: Other (see hpi ) Critical Care Time Critical Care Time Critical Care Time: Yes Total Critical Care Time: 35 Attestation: I attest to this time spent taking care of the patient, obtaining history, physical, reviewing labs, imaging, treatment of patients condition +/- specialist/hospitalist consult +/- procedure Discharge Plan Discharge Clinical Impression: Asthma, Wheezing, Influenza A Patient Disposition: Admitted As Inpatient Print Language: [place]
[2025-07-21 16:21] LABS: Resp Syncy Virus RNA Qual PCR NEGATIVE (Negative); SARS COV2 PCR INHOUSE NEGATIVE (Negative)
--- NOTE | 2025-07-21 16:47 | MHC.EDTECH ---
Ambulated patient with O2 sats. Sitting 95% walking O2 sats dropped to 92% with increased effort and coughing.
[2025-07-21] MEDS: Albuterol Sulfate 2.5 MG, Albuterol/Iprat 2.5/0.5MG 3 ML 3 ML INHALE (16:57)
[2025-07-21] MEDS: Magnesium Sulfate/H2O 2 GM/50 ML PIGGYBACK IV (16:58)
[2025-07-21 17:35] LABS: Hematocrit 38.0 % (37.0-47.0); Hemoglobin 12.6 g/dl (12.0-16.0); Imm Gran Abs Auto 0.05 X10*3/uL (0.00-0.03); Imm Gran Pct Auto 0.7 % (0.0-0.4); Lymphocytes Absolute Auto 0.8 X10*3/uL (1.2-4.9); MANUAL DIFF FLAG NO; Mean Corpuscular HGB Conc 33.2 g/dl (31.0-35.0); Mean Corpuscular Hemoglobin 29.7 pg (27.0-33.0); Mean Corpuscular Volume 89.6 fL (80.0-98.0); NRBC Abs Auto 0.000 X10*3/uL (0.0-0.012); NRBC Pct Auto 0.0 /100WBC (0.0-0.2); Platelet Count 206 X10*3/uL (160-400); Red Blood Count 4.24 X10*6/uL (4.20-5.50); White Blood Count 7.1 X10*3/uL (4.8-10.8)
[2025-07-21 17:58] LABS: NT Pro B Type Natriuretic Pept 138.2 pg/mL (<300); Troponin-I High Sensitivity 6.7 ng/L (<3.5-17.0)
[2025-07-21 17:59] LABS: Alanine Aminotransferase 29 U/L (0-31); Albumin Level 3.9 g/dL (3.5-5.0); Alkaline Phosphatase 85 U/L (39-117); Anion Gap 13 (12-20); Aspartate Amino Transferase 26 U/L (5-31); Blood Urea Nitrogen 10 mg/dL (9-16); Calcium 8.7 mg/dL (8.4-10.2); Carbon Dioxide 23 mmol/L (22-29); Chloride 110 mmol/L (96-108); Creatinine Clr Calc Pharmacy 69.3; Estimated Glomerular Filt Rate 58; Potassium 2.9 mmol/L (3.3-5.1); Sodium 143 mmol/L (135-145); Total Protein 6.7 g/dL (6.5-8.0)
[2025-07-21] MEDS: Potassium Chloride Packet 20 MEQ PACKET 40 MEQ PO (18:12)
[2025-07-21] MEDS: levalbuterol HCL 2.5 MG, Ipratropium Bromide 0.5 MG INHALE (18:23)
--- NOTE | 2025-07-21 20:00 | PC.NURSE ---
Addendum entered by Alycia Blackburn RN 07/21/25 20:19: pt medicated per MAR, respiratory at bedside Original Note: assumed care pf pt, provider at bedside.
--- NOTE | 2025-07-21 20:00 | PM.IMHP ---
History of Present Illness Date of Service: 07/21/25 Attending physician on admission: Stevie Archuleta Chief Complaint: Cough Argelia Oliver is a 59 years old woman with a past medical history significant for type 2 diabetes mellitus, essential hypertension, asthma, HFpEF, hyperlipidemia, depression, obesity and hypothyroidism presents to the emergency department complaining of nonproductive cough that started yesterday associated with shortness on breath, wheezing and chest tightness. She also reports headache. She denied fever, chills, nasal congestion, sore throat, palpitations or dizziness. She did not report any acute gastrointestinal or genitourinary symptoms. She is a tobacco smoker and last time she smoked was several days ago. She did not alcohol abuse or illicit drug use. In the ED, she was found to have stable vital signs except for mild degree of tachypnea. Her oxygen saturation is 93% and not requiring oxygen at this moment. Blood workup showed no leukocytosis. Hemoglobin is 12.3 and platelets 206. There is neutropenia and low lymphocytes. There is hypokalemia of 2.9 and hyperkalemia 110. There are no other electrolyte imbalances. Creatinine is 0.97, BUN 10. LFTs are normal. Pro BNP is 138.2 and troponin 6.7. Viral testing significant for influenza positive. CXR is negative. ECG showed normal sinus rhythm with some nonspecific T-wave changes. ED tx: Albuterol 3 mL neb, magnesium sulfate 2 g IV, KCl 40 mEq p.o., Xopenex x1, Solu-Medrol 125 mg IV Review of Systems Review of Systems: All 12 systems were reviewed and normal except as noted in HPI. [facility] Medical History CHF (congestive heart failure) Back pain Arthritis Anemia GERD (gastroesophageal reflux disease) History of headache Osteoarthritis of knees, bilateral Depression Asthma High cholesterol Hypothyroidism Type 2 diabetes mellitus Bilateral carpal tunnel syndrome Fibromyalgia Chronic diarrhea Drug induced constipation Family History Mother No problems noted. Father Cancer Sister Breast cancer Surgical History History of total left knee replacement History of total right knee replacement (TKR) Hx of bilateral cataract extraction History of esophagogastroduodenoscopy (EGD) H/O colonoscopy Hx of hand surgery History of cholecystectomy (~2011) S/p bilateral carpal tunnel release (~2003) Hx of laparoscopic adjustable gastric banding (~2009) History of removal of laparoscopic gastric banding device (~10/2012) H/O: hysterectomy (~10/2012) Social History Household Members: Family Household Members Other:: sister Housing: Apartment Are you a primary day care supervisor to a significant other at home: No Do you presently have visiting nurse or other home services: Yes Alcohol intake: current Alcohol intake frequency: holidays/special occasions only Comment: COUNTS CORRECT Patient Tobacco Use Status: Former Tobacco user Tobacco use type: Cigarette Cigarettes Per Day: 3 Years Smoked: 47 Smoked in Last 30 Days: Yes Patient Interested in Nicotine Replacement: No Patient Given Instructions on How to Stop Smoking: No Second Hand Smoke Exposure: No Use of substances other than those prescribed or required for medical reasons: No Currently Displaying Signs/Symptoms of Drug Intoxication Withdrawal: No Have you been hit, kicked, punched, or otherwise hurt by someone within the past year? If so, by whom?: No Do you feel safe in your current relationship?: Yes Is there a partner from a previous relationship who is making you feel unsafe now?: No Are you made to feel afraid or neglected: No Advance Directives: No Advance Directives Information Provided: No Do you have a plan to hurt others: No Plan Recently lost weight without trying: No Nutrition Risks: No Nutritional Risk Patient : No service: No Current occupational status: disabled Meds Allergies Allergy/AdvReac Type Severity Reaction Status Date / Time cortisone (CORTISONE) Allergy Intermediate ELEVATES Verified 07/21/25 15:24 BLOOD SUGAR ibuprofen (IBUPROFEN) Allergy Intermediate GI UPSET, Verified 07/21/25 15:24 stomach upset mayonnaise (MAYONNAISE) Allergy Mild RASH Verified 07/21/25 15:24 naproxen (NAPROXEN) AdvReac Intermediate STOMACH Verified 07/21/25 15:24 UPSET Vicodin Allergy Unknown palpitation Uncoded 07/21/25 15:24 s,hypertens ion Cortisone AdvReac Unknown hyperglycem Uncoded 07/21/25 15:24 ia Active Medications: Current Medications Acetaminophen (Acetaminophen 325 Mg Tablet) 975 mg PO Q6H PRN PRN Reason: Pain, Mild 1-3,fever,headache Albuterol Sulfate (Albuterol Sulfate (0.083%) 2.5 Mg/3 Ml Vial.Neb) 2.5 mg INHALE Q2H PRN PRN Reason: Shortness of Breath/Wheezing Albuterol/Ipratropium (Albuterol/Iprat 2.5/0.5mg 3 Ml Ampul.Neb) 3 ml INHALE RQ4H WHILE AWAKE [facility] Heparin Sodium (Porcine) (Heparin Sodium,Porcine 5,000 Unit/Ml Vial) 5,000 unit SUBCUT Q8H VIVEK Melatonin (Melatonin 3 Mg Tablet) 6 mg PO BEDTIME PRN PRN Reason: Insomnia Methylprednisolone Sodium Succinate (Methylprednisolone Sod Succ 40 Mg/Ml Vial) 40 mg IVPUSH Q6H VIVEK Oseltamivir Phosphate (Oseltamivir Phosphate 75 Mg Capsule) 75 mg PO Q12H VIVEK Stop: 07/26/25 09:01 Sodium Chloride (0.9 % Sodium Chloride Flush 3 Ml Syringe) 3 ml IVFLUSH QSHIFT [facility] Home Medications ?Medication ?Instructions ?Recorded ?Confirmed ?Last Taken ?Type bupropion HCl 300 mg 24 hr tablet, 300 mg PO QAM 05/16/20 07/22/25 09/27/24 06:10 History extended release (Wellbutrin XL) furosemide 20 mg tablet (Lasix) 20 mg PO DAILY 05/16/20 07/22/25 06/08/23 History levothyroxine 150 mcg tablet 150 mcg PO MOTUWETHFRSA@0600 05/16/20 07/22/25 09/27/24 06:10 History montelukast 10 mg tablet 10 mg PO QPM 05/16/20 07/22/25 06/08/23 History (Singulair) insulin glargine 100 unit/mL (3 28 unit subcut BEDTIME 11/05/22 07/22/25 06/08/23 History mL) subcutaneous pen (Lantus Solostar U-100 Insulin) irbesartan 300 mg tablet 300 mg PO DAILY 11/05/22 07/22/25 06/08/23 History lancets 33 gauge (TRUEplus Lancets) #100 ea 11/05/22 06/04/25 06/08/23 History pen needle, diabetic 32 gauge x #50 ea 11/05/22 06/04/25 06/08/23 History (Pentips Pen Needle) pantoprazole 20 mg tablet,delayed 20 mg PO QAM 05/28/23 07/22/25 09/27/24 06:10 History release amitriptyline 50 mg tablet 50 mg PO BEDTIME 03/09/24 07/22/25 Unknown History carvedilol 3.125 mg tablet 3.125 mg PO BEDTIME 03/09/24 07/22/25 09/27/24 06:10 History clonazepam 0.5 mg tablet 0.5 mg PO TID PRN Anxiety 03/09/24 07/22/25 Unknown History cyanocobalamin (vitamin B-12) 1,000 mcg PO DAILY 03/09/24 07/22/25 Unknown History 1,000 mcg tablet melatonin 5 mg tablet 10 mg PO BEDTIME PRN Insomnia 03/09/24 07/22/25 Unknown History naloxone 4 mg/actuation nasal spray 1 spray intranasal DAILY PRN 03/09/24 07/22/25 Unknown History Opiate Reversal topiramate 200 mg tablet 200 mg PO BEDTIME 03/09/24 07/22/25 Unknown History albuterol sulfate 2.5 mg/3 mL 2.5 mg inhalation Q4-6H PRN 09/04/24 07/22/25 Unknown History (0.083 %) solution for nebulization Shortness Of Breath Or Wheezing albuterol sulfate 90 mcg/actuation 2 puff inhalation BID Shortness Of 09/04/24 07/22/25 09/27/24 06:10 History aerosol inhaler (Ventolin HFA) Breath Or Wheezing empagliflozin 10 mg tablet 10 mg PO DAILY 07/22/25 07/22/25 Unknown History (Jardiance) pravastatin 40 mg tablet 40 mg PO BEDTIME cholesterol 07/22/25 07/22/25 Unknown History tirzepatide 5 mg/0.5 mL 5 mg subcut FR 07/22/25 07/22/25 Unknown History subcutaneous pen injector (Mounjaro) zolpidem 10 mg tablet 10 mg PO BEDTIME PRN Insomnia 07/22/25 07/22/25 Unknown History Physical Exam Vital Signs and Narrative: Vital Signs: Last Vital Signs Temp 98.7 F 07/21/25 19:31 Pulse 89 07/21/25 19:31 Resp 21 H 07/21/25 19:31 BP 120/66 07/21/25 19:31 Pulse Ox 93 07/21/25 19:31 O2 Del Method Room Air 07/21/25 19:31 BMI result Body Mass Index 42.3 General: Alert, oriented, in no acute distress. Cooperative. Afebrile. Constantly coughing. Obese HEENT: Head normocephalic, atraumatic. PER, EOMI. Sclerae anicteric, conjunctiva clear. Oropharynx without erythema or exudate. Mucous membranes moist. Neck: Supple, , or JVD. Heart: RRR, no murmurs, rubs or gallops. Lungs: Tachypnea, end expiratory wheezes. No rhonchi or crackles. Abdomen: Soft, non tenderness, nondistended, normoactive bowel sounds. No hepatosplenomegaly, masses or masses. Extremities: No calf tenderness bilaterally, no swelling Musculoskeletal: Full range of motion. No joint swelling, deformity, or tenderness. Normal muscle tone and strength. Skin: Warm/Dry. No pallor. No jaundice. Neurologic: Alert & oriented x4. Moving all extremities spontaneously. Normal speech. Psychological: Normal mood and affect. Thought process coherent. Results Labs 07/22/25 04:08 07/22/25 04:08 Labs: Laboratory Results - last 24 hr 07/21/25 07/21/25 15:37 17:27 MCV 89.6 MCH 29.7 MCHC 33.2 RDW 13.6 Plt Count 206 MPV 10.0 Immature Gran % (Auto) 0.7 H Neut % (Auto) 81.5 H Lymph % (Auto) 11.1 L [place] % (Auto) 5.6 Eos % (Auto) 0.8 Baso % (Auto) 0.3 Lymph # (Auto) 0.8 L [place] # (Auto) 0.4 Eos # (Auto) 0.1 Baso # (Auto) 0.0 Abs Immat Gran (auto) 0.05 H Absolute Neuts (auto) 5.8 Absolute Nucleated RBC 0.000 Nucleated RBC % (auto) 0.0 Anion Gap 13 Estim Creat Clear Calc 69.3 Estimated GFR 58 Random Glucose 116 H Calcium 8.7 Total Bilirubin 0.5 AST 26 ALT 29 Alkaline Phosphatase 85 Troponin I High Sens 6.7 NT-Pro-B Natriuret Pep 138.2 Total Protein 6.7 Albumin 3.9 Influenza Type A (PCR) POSITIVE A Influenza Type B (PCR) NEGATIVE RSV RNA Qual (PCR) NEGATIVE SARS-CoV-2 RNA (RT-PCR) NEGATIVE Assessment and Plan (1) Acute asthma exacerbation: Qualifiers: Asthma severity: severe Asthma persistence: persistent Qualified Code(s): J45.51 - Severe persistent asthma with (acute) exacerbation Status: Acute (2) Influenza A: Status: Acute Plan Argelia Oliver is a 59 y/o woman who presents with: Acute exacerbation of asthma secondary to influenza A infection, severe persisent. Pt persists with significant respiratory symptoms. Pulse oximetry. Supplemental O2 to keep O2 sats > 90%. Continue bronchodilator therapy and IV steroids. Start therapy with Tamiflu 75 mg p.o. b.i.d. if for 5 days. Continue montelukast. Hypokalemia. Likely secondary to furosemide. Hold furosemide. Received KCl in the ED. Continue to monitor and replete as needed. Type 2 diabetes mellitus. BG checks before meals at bedtime. Continue Lantus and Jardiance. Insulin sliding scale. Diabetic diet. HFpEF. No evidence of decompensation: CXR negative, pro BNP normal. Continue carvedilol. Furosemide on hold due to hypokalemia. Hyperlipidemia. Continue statin. Depression and anxiety. Continue home meds. Obesity, class III. Weight loss and lifestyle modifications encouraged. On Manjaro injection. Essential hypertension. Continue irbesartan and carvedilol. Hypothyroidism. Continue levothyroxine. GERD. Continue PPI. med rec pending Code status: Full DVT prophylaxis: Heparin Patient will need hospitalization for at least 2 midnights for acute exacerbation of asthma in the setting of influenza infection and multiple medical comorbidities therapy with supplemental oxygen as needed, IV steroids, Tamiflu and bronchodilator therapy. Quality Stroke Does the patient have a stroke diagnosis?: No VTE Prior VTE?: No VTE Risk Level:: Medical - moderate - high VTE Device Contraindication: Treatment Not Indicated VTE Drug Contraindication: N/A - Med Ordered
[2025-07-21] MEDS: Albuterol/Iprat 2.5/0.5MG 3 ML AMPUL.NEB INHALE (20:13)
[2025-07-21 20:18] LABS: Magnesium 2.7 mg/dL (1.6-2.6)
[2025-07-21 20:59] LABS: Glucose, Whole Blood 183 mg/dL (60-115)
--- NOTE | 2025-07-21 23:11 | PC.NURSE ---
Pt states she is constipated and has not had a BM in 4 days, she is requesting a stool softener. provider advised, awaiting new orders.
[2025-07-21 23:50] LABS: Potassium 2.9 mmol/L (3.3-5.1)
--- NOTE | 2025-07-21 23:50 | PC.NURSE ---
critical lab, potassium is 2.9
[2025-07-22] VITALS (11 sets, daily range): BP systolic 128–153; BP diastolic 60–76; PULSE 73–86; RESP 16–19; TEMP 36.4–37.6; O2SAT 90–98
[2025-07-22] MEDS: Potassium Chloride Packet 20 MEQ PACKET PO (00:19)
[2025-07-22] MEDS: Potassium Chloride/H20 10 MEQ/100 ML PIGGYBACK 100 MEQ IV ×4 (00:20→03:30)
[2025-07-22] MEDS: 0.9 % Sodium Chloride Flush 3 ML SYRINGE IVFLUSH ×4 (01:25→21:22)
[2025-07-22 04:38] LABS: Hematocrit 37.3 % (37.0-47.0); Hemoglobin 12.3 g/dl (12.0-16.0); Mean Corpuscular HGB Conc 33.0 g/dl (31.0-35.0); Mean Corpuscular Hemoglobin 29.7 pg (27.0-33.0); Mean Corpuscular Volume 90.1 fL (80.0-98.0); NRBC Abs Auto 0.000 X10*3/uL (0.0-0.012); NRBC Pct Auto 0.0 /100WBC (0.0-0.2); Platelet Count 199 X10*3/uL (160-400); Red Blood Count 4.14 X10*6/uL (4.20-5.50); White Blood Count 8.8 X10*3/uL (4.8-10.8)
[2025-07-22 04:54] LABS: Anion Gap 13 (12-20); Blood Urea Nitrogen 11 mg/dL (9-16); Calcium 8.4 mg/dL (8.4-10.2); Carbon Dioxide 20 mmol/L (22-29); Chloride 110 mmol/L (96-108); Creatinine Clr Calc Pharmacy 70.0; Estimated Glomerular Filt Rate 59; Potassium 3.7 mmol/L (3.3-5.1); Sodium 139 mmol/L (135-145)
[2025-07-22 04:59] LABS: Band Neutrophils Percent 6 % (3-5); Lymphocytes Absolute Manual 0.1 X10*3/uL (1.2-4.9); Lymphocytes Percent Manual 1 % (20-40); Neutrophils Absolute Manual 8.7 X10*3/uL (2.0-8.3); Neutrophils Percent Manual 93 % (45-73)
[2025-07-22 05:00] LABS: RBC Morphology NORMAL
[2025-07-22 07:15] LABS: Glucose, Whole Blood 184 mg/dL (60-115)
[2025-07-22] MEDS: Albuterol/Iprat 2.5/0.5MG 3 ML AMPUL.NEB INHALE ×4 (07:47→19:55)
--- NOTE | 2025-07-22 09:11 | PHA.MEDREC ---
Pharmacy Consult ? Medication Reconciliation Pharmacy has completed the medication reconciliation. Utilized appliquer.
[2025-07-22] MEDS: buPROPion HCl XL 300 MG TAB.ER.24H PO (10:38)
[2025-07-22 11:25] LABS: Glucose, Whole Blood 199 mg/dL (60-115)
[2025-07-22] MEDS: guaiFENesin 200 MG/10 ML 10 ML LIQUID PO ×3 (12:22→21:16)
--- NOTE | 2025-07-22 15:16 | P.PNIM_ITS ---
Subjective Subjective Date of Service: 07/22/25 Interval History: copd execerebation ,influenza A Review of Systems sob seems similar Lot of cough, discomfort with coughing Review of Systems: Yes all other systems are reviewed and are negative Physical Exam 2 Exam: Exam: Appearance: Alert.? Oriented X3.? cvs: rrr, [id number] , no murmur res: air entry diminshed at bases ,b/l exp wheezing abd: no rebound or guarding ,nt, bs present. ext pulses present , no cyanosis . neuro: axo3 , nonfocal. Vital Signs: Vital Signs: Last Vital Signs Temp 97.6 F 07/22/25 09:15 Pulse 86 07/22/25 11:56 Resp 19 07/22/25 11:56 BP 128/76 07/22/25 10:38 Pulse Ox 94 07/22/25 09:15 O2 Del Method Room Air 07/22/25 09:15 BMI result Body Mass Index 42.3 Objective Data Active Medications Acetaminophen (Acetaminophen 325 Mg Tablet) 975 mg PO Q6H PRN PRN Reason: Pain, Mild 1-3,fever,headache Albuterol Sulfate (Albuterol Sulfate (0.083%) 2.5 Mg/3 Ml Vial.Neb) 2.5 mg INHALE Q2H PRN PRN Reason: Shortness of Breath/Wheezing Albuterol/Ipratropium (Albuterol/Iprat 2.5/0.5mg 3 Ml Ampul.Neb) 3 ml INHALE RQ4H WHILE AWAKE [facility] Last Admin: 07/22/25 11:56 Dose: 3 ml Documented By: RADHA Amitriptyline HCl (Amitriptyline Hcl 50 Mg Tablet) 50 mg PO BEDTIME [facility] Bupropion HCl (Bupropion Hcl Xl 300 Mg Tab.Er.24h) 300 mg PO DAILY [facility] Last Admin: 07/22/25 10:38 Dose: 300 mg Documented By: ELA Carvedilol (Carvedilol 3.125 Mg Tablet) 3.125 mg PO BEDTIME [facility]; Protocol Clonazepam (Clonazepam 0.5 Mg Tablet) 0.5 mg PO TID PRN PRN Reason: Anxiety Cyanocobalamin (Vitamin B12) (Cyanocobalamin (Vitamin B-12) 1,000 Mcg Tablet) 1,000 mcg PO DAILY [facility] Dextrose (Dextrose 50 % 25 Gm/50 Ml Syringe) 25 gm IVPUSH Q15M PRN; Protocol PRN Reason: per Hypoglycemia Standing Ord. Empagliflozin (Empagliflozin 10 Mg Tablet) 10 mg PO DAILY [facility] Furosemide (Furosemide 20 Mg Tablet) 20 mg PO DAILY [facility]; Protocol Last Admin: 07/22/25 10:38 Dose: 20 mg Documented By: ELA Glucose (Glucose Gel 15 Gm Gel..Gram.) 15 gm PO Q15M PRN; Protocol PRN Reason: per Hypoglycemia Standing Ord. Guaifenesin (Guaifenesin 200 Mg/10 Ml 10 Ml Liquid) 10 ml PO Q4H PRN PRN Reason: Cough Last Admin: 07/22/25 12:22 Dose: 10 ml Documented By: ELA Heparin Sodium (Porcine) (Heparin Sodium,Porcine 5,000 Unit/Ml Vial) 5,000 unit SUBCUT Q8H [facility] Last Admin: 07/22/25 09:44 Dose: 5,000 unit Documented By: ELA Insulin Human Lispro (Insulin Lispro 100 Unit/Ml 3 Ml Vial) 0 unit SUBCUT QIDACHS [facility]; Protocol Last Admin: 07/22/25 12:22 Dose: 4 unit Documented By: ELA Levothyroxine Sodium (Levothyroxine Sodium 150 Mcg Tablet) 150 mcg PO MOTUWETHFRSA@0600 [facility] Magnesium Hydroxide (Milk Of Magnesia 30 Ml Oral.Susp) 30 ml PO TID PRN PRN Reason: Constipation Melatonin (Melatonin 3 Mg Tablet) 6 mg PO BEDTIME PRN PRN Reason: Insomnia Methylprednisolone Sodium Succinate (Methylprednisolone Sod Succ 40 Mg/Ml Vial) 40 mg IVPUSH Q6H [facility] Last Admin: 07/22/25 13:52 Dose: 40 mg Documented By: ELA Montelukast Sodium (Montelukast Sodium 10 Mg Tablet) 10 mg PO BEDTIME [facility] Naloxone HCl (Naloxone Hcl Nasal 4 Mg Inez) 4 mg NOSTRILALT DAILY PRN PRN Reason: Opiate Reversal Non-Formulary Medication (Tirzepatide [Mounjaro]) 5 mg SUBCUT FR [facility] Omeprazole (Omeprazole 20 Mg Capsule.) 20 mg PO DAILY@0630 [facility] Last Admin: 07/22/25 10:38 Dose: 20 mg Documented By: ELA Oseltamivir Phosphate (Oseltamivir Phosphate 75 Mg Capsule) 75 mg PO Q12H [facility] Stop: 07/26/25 09:01 Last Admin: 07/22/25 09:45 Dose: 75 mg Documented By: ELA Pravastatin Sodium (Pravastatin Sodium 40 Mg Tablet) 40 mg PO BEDTIME VIVEK Senna/Docusate Sodium (Sennosides/Docusate Sodium Tablet) 2 tab PO BEDTIME PRN PRN Reason: Constipation Sodium Chloride (0.9 % Sodium Chloride Flush 3 Ml Syringe) 3 ml IVFLUSH QSHIFT [facility] Last Admin: 07/22/25 13:52 Dose: 3 ml Documented By: ELA Topiramate (Topiramate 100 Mg Tablet) 200 mg PO BEDTIME VIVEK Valsartan (Valsartan 160 Mg Tablet) 160 mg PO DAILY [facility]; Protocol Zolpidem Tartrate (Zolpidem Tartrate 5 Mg Tablet) 10 mg PO BEDTIME PRN PRN Reason: Insomnia Labs 07/22/25 04:08 07/22/25 04:08 Labs: Laboratory Results - last 24 hr 07/21/25 07/21/25 07/21/25 15:37 17:27 20:54 MCV 89.6 MCH 29.7 MCHC 33.2 RDW 13.6 Plt Count 206 MPV 10.0 Immature Gran % (Auto) 0.7 H Neut % (Auto) 81.5 H Lymph % (Auto) 11.1 L [place] % (Auto) 5.6 Eos % (Auto) 0.8 Baso % (Auto) 0.3 Lymph # (Auto) 0.8 L [place] # (Auto) 0.4 Eos # (Auto) 0.1 Baso # (Auto) 0.0 Abs Immat Gran (auto) 0.05 H Absolute Neuts (auto) 5.8 Absolute Nucleated RBC 0.000 Nucleated RBC % (auto) 0.0 Neutrophils % (Manual) Band Neutrophils % Lymphocytes % (Manual) Abs Neuts (Manual) Lymphocytes # (Manual) Platelet Estimate Plt Morphology Comment RBC Morphology Anion Gap 13 Estim Creat Clear Calc 69.3 Estimated GFR 58 POC Glucose 183 H Random Glucose 116 H Calcium 8.7 Magnesium 2.7 H Total Bilirubin 0.5 AST 26 ALT 29 Alkaline Phosphatase 85 Troponin I High Sens 6.7 NT-Pro-B Natriuret Pep 138.2 Total Protein 6.7 Albumin 3.9 Influenza Type A (PCR) POSITIVE A Influenza Type B (PCR) NEGATIVE RSV RNA Qual (PCR) NEGATIVE SARS-CoV-2 RNA (RT-PCR) NEGATIVE 07/22/25 07/22/25 07/22/25 04:08 07:09 11:21 MCV 90.1 MCH 29.7 MCHC 33.0 RDW 13.8 Plt Count 199 MPV 10.6 Immature Gran % (Auto) Cancelled Neut % (Auto) Cancelled Lymph % (Auto) Cancelled [place] % (Auto) Cancelled Eos % (Auto) Cancelled Baso % (Auto) Cancelled Lymph # (Auto) Cancelled [place] # (Auto) Cancelled Eos # (Auto) Cancelled Baso # (Auto) Cancelled Abs Immat Gran (auto) Cancelled Absolute Neuts (auto) Cancelled Absolute Nucleated RBC 0.000 Nucleated RBC % (auto) 0.0 Neutrophils % (Manual) 93 H Band Neutrophils % 6 H Lymphocytes % (Manual) 1 L Abs Neuts (Manual) 8.7 H Lymphocytes # (Manual) 0.1 L Platelet Estimate NORMAL Plt Morphology Comment NORMAL RBC Morphology NORMAL Anion Gap 13 Estim Creat Clear Calc 70.0 Estimated GFR 59 POC Glucose 184 H 199 H Random Glucose 192 H Calcium 8.4 Magnesium Total Bilirubin AST ALT Alkaline Phosphatase Troponin I High Sens NT-Pro-B Natriuret Pep Total Protein Albumin Influenza Type A (PCR) Influenza Type B (PCR) RSV RNA Qual (PCR) SARS-CoV-2 RNA (RT-PCR) Assessment and Plan (1) Asthma: Status: Acute Plan 59 y/o woman who presents with: Acute exacerbation of asthma secondary to influenza A infection, pt persists with significant respiratory symptoms. Pulse oximetry. Supplemental O2 to keep O2 sats > 90%. Continue bronchodilator therapy and IV steroids,Tamiflu 75 mg p.o. b.i.d. if for 5 days. Continue montelukast. acute Hypokalemia. Likely secondary to furosemide. moniter renal function and electrolytes closely Type 2 diabetes mellitus. BG checks before meals at bedtime. Continue Lantus and Jardiance. Insulin sliding scale. Diabetic diet. HFpEF. No evidence of decompensation: CXR negative, pro BNP normal. Continue carvedilol. Furosemide restarted . added potassium 10 meq po qd. Hyperlipidemia. Continue statin. Depression and anxiety. Continue home meds. Obesity, class III. Weight loss and lifestyle modifications encouraged. Essential hypertension. Continue valsartan, amlodipine and carvedilol. Hypothyroidism. Continue levothyroxine. ongoing need for stay:Acute exacerbation of asthma secondary to influenza A infection, pt persists with significant respiratory symptom,hypokalemia : Not much improvement respiratory status bradley -continue steriods, tamiflu , also need close monitering of renal function/electrolytes . Quality Stroke Does the patient have a stroke diagnosis?: No VTE Prior VTE?: No VTE Risk Level:: Medical - moderate - high VTE Device Contraindication: Treatment Not Indicated VTE Drug Contraindication: N/A - Med Ordered
--- NOTE | 2025-07-22 16:20 | MHC.CM.PN ---
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 OR [facility], SHE IS UNCLEAR SHE USES A CANE, WALKER AND NEBULIZER FOR DME HCP ON FILE AND VERIFIED PCP: OMERO SOTO DCP: HOME, RESUME SERVICES SUPERVIS[employer] TO TRANSPORT
[2025-07-22 16:35] LABS: Glucose, Whole Blood 190 mg/dL (60-115)
[2025-07-22] MEDS: Potassium Chloride ER 10 MEQ TABLET.ER PO (17:57)
[2025-07-22 20:06] LABS: Glucose, Whole Blood 267 mg/dL (60-115)
[2025-07-23 03:29] VITALS: BP 124/61; PULSE 67; RESP 18; TEMP 36.8; O2SAT 91
[2025-07-23 07:30] LABS: Glucose, Whole Blood 215 mg/dL (60-115)
[2025-07-23] MEDS: guaiFENesin 200 MG/10 ML 10 ML LIQUID PO ×2 (07:52→11:41)
[2025-07-23 07:55] VITALS: BP 126/58; PULSE 70; RESP 18; TEMP 36.4; O2SAT 93
[2025-07-23] MEDS: 0.9 % Sodium Chloride Flush 3 ML SYRINGE IVFLUSH (08:29)
[2025-07-23] MEDS: Potassium Chloride ER 10 MEQ TABLET.ER PO (08:30)
[2025-07-23] MEDS: buPROPion HCl XL 300 MG TAB.ER.24H PO (08:30)
[2025-07-23 08:39] VITALS: PULSE 70; RESP 18; O2SAT 94
[2025-07-23] MEDS: Albuterol/Iprat 2.5/0.5MG 3 ML AMPUL.NEB INHALE ×2 (08:39→11:47)
[2025-07-23 11:19] LABS: Glucose, Whole Blood 200 mg/dL (60-115)
--- NOTE | 2025-07-23 11:42 | P.DS_ITS ---
DS: Providers Provider Date of admission: 07/21/25 19:49 Date of discharge: 07/23/25 Primary care physician: BIANCA Arboleda Attending physician on discharge: Dre Black Discharging clinician: Dre Black DS: Diagnosis Discharge Diagnosis (1) Acute asthma exacerbation: Status: Acute (2) Influenza A: Status: Acute DS: Summary Hospital Course Hospital Course: HPI:59 years old woman with a past medical history significant for type 2 diabetes mellitus, essential hypertension, asthma, HFpEF, hyperlipidemia, depression, obesity and hypothyroidism presents to the emergency department complaining of nonproductive cough that started yesterday associated with shortness on breath, wheezing and chest tightness. She also reports headache. She denied fever, chills, nasal congestion, sore throat, palpitations or dizziness. She did not report any acute gastrointestinal or genitourinary symptoms. She is a tobacco smoker and last time she smoked was several days ago . She did not alcohol abuse or illicit drug use. In the ED, she was found to have stable vital signs except for mild degree of tachypnea. Her oxygen saturation is 93% and not requiring oxygen at this moment. Blood workup showed no leukocytosis. Hemoglobin is 12.3 and platelets 206. There is neutropenia and low lymphocytes. There is hypokalemia of 2.9 and hyperkalemia 110. There are no other electrolyte imbalances. Creatinine is 0.97, BUN 10. LFTs are normal. Pro BNP is 138.2 and troponin 6.7. Viral testing significant for influenza positive. CXR is negative. ECG showed normal sinus rhythm with some nonspecific T-wave changes. ED tx: Albuterol 3 mL neb, magnesium sulfate 2 g IV, KCl 40 mEq p.o., Xopenex x1, Solu-Medrol 125 mg IV. Hospital course: Patient admitted to the hospital with acute exacerbation of asthma(mild intermittent asthma ) sec to influenza A infection: Patient was started on nebs, steroids, Tamiflu-seems to be improved significantly going home with p.o. prednisone and Tamiflu. Added cough medication. Chest x-ray negative. Hypokalemia thought to be related to low p.o. intake as well as Lasix: Repleted and resolved, given limited p.o. potassium supply. Continue home medications including Lasix, monitor BMP in 1 week if potassium still low then consider outpatient adding more potassium. plan: Complete Tamiflu course, prednisone 40 mg q.d.x4 days. Cough medication ordered. Limited potassium and magnesium supply given. Monitor BMP outpatient. Follow up with PCP If any new symptoms including shortness of breaths or cough or fever -go to [facility] emergency room for further evaluation. Time Attestation Total time managing care of this patient today: 50 mintues. Discharge Coordination Time (in mins): 50 min Quality: Safe Use of Opioids Does Pt have an Active Cancer Diagnosis on the Problem List?: No Quality: Stroke Does the patient have a stroke diagnosis?: No Physical Exam Exam: Exam: Appearance: Alert.? Oriented X3.? cvs: rrr, [id number] . res: air enrty fair , no rales or wheezing abd: no rebound or guarding ,nt, bs present. ext pulses present , no cyanosis . neuro: axo3 , nonfocal. Vital Signs: Vital Signs: Last Vital Signs Temp 97.5 F 07/23/25 07:55 Pulse 70 07/23/25 08:39 Resp 18 07/23/25 08:39 BP 126/58 L 07/23/25 07:55 Pulse Ox 93 07/23/25 07:55 O2 Del Method Room Air 07/23/25 07:55 BMI result Body Mass Index 42.3 DS: Data Data Completed and Pending Labs on day of discharge: Laboratory Results - last 24 hr 07/22/25 07/22/25 07/23/25 16:23 20:02 07:27 POC Glucose 190 H 267 H 215 H 07/23/25 11:14 POC Glucose 200 H Imaging Chest x-ray: My impression: cxr: Impression: No acute findings. Discharge Plan Discharge Anticipated Discharge Date/Time: 07/23/25 11:19 Patient Disposition: Home, Self-Care Discharge Diagnosis: Asthma exacerbation, influenza A Referrals: Princess Min FNP [Primary Care Provider, Family Practice] - 1 Week Discharge Medications: New oseltamivir [Tamiflu] 75 mg Capsule 75 mg PO Q12H Qty: 6 0RF loratadine 10 mg Tablet 10 mg PO DAILY Qty: 7 0RF potassium chloride [Klor-Con M10] 10 mEq Tablet,Er Particles/Crystals 10 meq PO DAILY Qty: 2 0RF prednisone 20 mg Tablet 40 mg PO DAILY Qty: 8 0RF sennosides-docusate sodium [Senna Plus] 8.6-50 mg Tablet 2 tab PO BEDTIME PRN (Reason: Constipation) Qty: 30 0RF benzonatate 100 mg Capsule 100 mg PO TID PRN (Reason: Cough) Qty: 15 0RF magnesium oxide 400 mg magnesium capsule 400 mg PO DAILY Qty: 7 0RF Continued (DME) blood-glucose meter [FreeStyle Lite Meter] Kit See Rx Instructions .Route Qty: 1 0RF Rx Instructions: As directed checks 4 X/day (DME) walker Misc See Rx Instructions .MEDSUPPLY Qty: 1 0RF Rx Instructions: Folding Front wheeled walker \duration 99 days fluticasone furoate-vilanterol [Breo Ellipta] 200-25 mcg/dose blister with device 1 ea PO DAILY Qty: 60 6RF pantoprazole 20 mg tablet,delayed release (DR/EC) 20 mg PO QAM albuterol sulfate [Ventolin HFA] 90 mcg/actuation HFA aerosol inhaler 2 puff INHALATION BID albuterol sulfate 2.5 mg /3 mL (0.083 %) Solution For Nebulization 2.5 mg INHALATION Q4-6H PRN (Reason: Shortness Of Breath Or Wheezing) pravastatin 40 mg tablet 40 mg PO BEDTIME zolpidem 10 mg tablet 10 mg PO BEDTIME PRN (Reason: Insomnia) Jardiance 10 mg tablet 10 mg PO DAILY Mounjaro 5 mg/0.5 mL pen injector 5 mg subcut FR furosemide [Lasix] 20 mg tablet 20 mg PO DAILY bupropion HCl [Wellbutrin XL] 300 mg tablet extended release 24 hr 300 mg PO QAM montelukast [Singulair] 10 mg tablet 10 mg PO QPM levothyroxine 150 mcg tablet 150 mcg PO MOTUWETHFRSA@0600 insulin glargine [Lantus Solostar U-100 Insulin] 100 unit/mL (3 mL) insulin pen 28 unit subcut BEDTIME Patient Comments: only 1/2 dose yesterday (DME) pen needle, diabetic [Pentips Pen Needle] 32 gauge x needle See Rx Instructions .ROUTE DIRECTED Qty: 50 Rx Instructions: As directed once a day (DME) lancets [TRUEplus Lancets] 33 gauge misc See Rx Instructions .ROUTE BID Qty: 100 Rx Instructions: As directed irbesartan 300 mg tablet 300 mg PO DAILY melatonin 5 mg tablet 10 mg PO BEDTIME PRN (Reason: Insomnia) amitriptyline 50 mg tablet 50 mg PO BEDTIME cyanocobalamin (vitamin B-12) 1,000 mcg tablet 1,000 mcg PO DAILY clonazepam 0.5 mg tablet 0.5 mg PO TID PRN (Reason: Anxiety) naloxone 4 mg/actuation spray,non-aerosol 1 spray intranasal DAILY PRN (Reason: Opiate Reversal) topiramate 200 mg tablet 200 mg PO BEDTIME carvedilol 3.125 mg tablet 3.125 mg PO BEDTIME (DME) cane See Rx Instructions .Route .MEDSUPPLY Qty: 1 0RF Rx Instructions: As directed Discharge Orders: Discharge Order (Routine); Ordered 07/23/25 Ordered By: Dre Black Diet: Advance to usual diet Activity on Discharge: As tolerated Stand Alone Forms: Patient Portal Discharge page Print Language: Mosotho Other Ambulatory Orders: Basic Metabolic Panel (Routine) Timeframe: 1 Week Facility: [facility] - Location: Laboratory Ordered By: Dre Black Care Plan Goals: Patient admitted to the hospital with acute exacerbation of asthma(mild intermittent asthma ) sec to influenza A infection: Patient was started on nebs, steroids, Tamiflu-seems to be improved significantly going home with p.o. prednisone and Tamiflu. Added cough medication. Chest x-ray negative. Hypokalemia thought to be related to low p.o. intake as well as Lasix: Repleted and resolved, given limited p.o. potassium supply. Continue home medications including Lasix, monitor BMP in 1 week if potassium still low then consider outpatient adding more potassium. If any new symptoms including shortness of breaths or cough or fever -go to nearest emergency room for further evaluation. Health Concerns: As above. Plan of Treatment: As above. Assessment: As above.
[2025-07-23 11:47] VITALS: PULSE 77; RESP 17; O2SAT 95
[2025-07-23 12:00] VITALS: O2SAT 92
== END 2025-07-23 14:19 | disposition home or self-care (01) | DRG 113 ==
LOC: HO.ED 16:51 → HO.EDOVER 19:52 → HO.S3 07-22 07:49
PROVIDERS: Physician Assistant; Admitting Provider Internal Medicine; Emergency Provider Emergency Medicine; PCP Registered Nurse; Visit Provider Internal Medicine
DX: J10.1 Influenza due to other identified influenza virus with other respiratory manifestations (principal); I11.0 Hypertensive heart disease with heart failure; I50.32 Chronic diastolic (congestive) heart failure; J45.21 Mild intermittent asthma with (acute) exacerbation; E03.9 Hypothyroidism, unspecified; E87.6 Hypokalemia; F32.A Depression, unspecified; K21.9 Gastro-esophageal reflux disease without esophagitis; F41.9 Anxiety disorder, unspecified; E78.5 Hyperlipidemia, unspecified; E66.813 Obesity, class 3; Z71.3 Dietary counseling and surveillance; Z68.41 Body mass index [BMI] 40.0-44.9, adult; Z20.822 Contact with and (suspected) exposure to COVID-19; Z87.891 Personal history of nicotine dependence; Z79.890 Hormone replacement therapy; Z79.899 Other long term (current) drug therapy
CPT/HCPCS: 36415; 71045; 80048; 80053; 82947; 83735; 83880; 84132; 84484; 85007; 85025; 85027; 87637; 93005; 94640; 99285; J1644; J2919; J3475; J3480

== ENCOUNTER → 2025-07-21 15:29 | Outpatient (BNV) | payer MEDICAID, SELFPAY | PROVIDERS: Emergency Provider Emergency Medicine; PCP Registered Nurse; Visit Provider Radiology Diagnostic Radiology | DX: R06.02 Shortness of breath (principal) | CPT/HCPCS: 71045 ==

== ENCOUNTER → 2025-07-21 15:30 | Outpatient (BNV) | payer MEDICAID, SELFPAY | PROVIDERS: Admitting Provider Internal Medicine; Emergency Provider Emergency Medicine; PCP Registered Nurse; Visit Provider Internal Medicine Cardiovascular Disease | DX: R94.31 Abnormal electrocardiogram [ECG] [EKG] (principal); R06.02 Shortness of breath | CPT/HCPCS: 93010 ==

== ENCOUNTER → 2025-07-21 19:49 | Outpatient (BNV) | payer MEDICAID, SELFPAY | PROVIDERS: Admitting Provider Internal Medicine; Emergency Provider Emergency Medicine; PCP Registered Nurse; Visit Provider Internal Medicine | DX: J45.51 Severe persistent asthma with (acute) exacerbation (principal); J09.X2 Influenza due to identified novel influenza A virus with other respiratory manifestations | CPT/HCPCS: 99223; 99232; 99239 ==